=== PATIENT | female | born 1950 | race African-American/Black ===

== ENCOUNTER → 2017-09-22 | Outpatient (CLI) | payer MEDICARE, OTHER | END | disposition home or self-care (01) | LOC: KCIC DEXA 11:18 | DX: Z12.31 Encounter for screening mammogram for malignant neoplasm of breast (principal) | CPT/HCPCS: 77067 ==

== ENCOUNTER → 2017-09-29 | Outpatient (CLI) | payer MEDICARE, OTHER | END | disposition home or self-care (01) | LOC: KCIC US 13:07 | DX: N63.13 Unspecified lump in the right breast, lower outer quadrant (principal) | CPT/HCPCS: 76641 ==

== ENCOUNTER → 2017-11-12 | Outpatient (CLI) | payer MEDICARE, OTHER ==
[~2017-11-12] MED LIST: LIDOCAINE 1%/EPI 1:100,000 20 ML VIAL. INJ ONE; LIDOCAINE 2%/EPI 1:100,000 20 ML VIAL. IJ ONE
[2017-11-12 11:00] VITALS: BP 146/77
[2017-11-12 11:15] VITALS: BP 153/80
[2017-11-12 11:30] VITALS: BP 155/78
[2017-11-12 11:45] VITALS: BP 152/82
--- NOTE | 2017-11-15 15:07 | PATHOLOGY ---
[facility] Accession Number: [id number] . 01 Material submitted: . PART A: RT BREAST MASS 5:00 PART B: RT BREAST MASS 9:00 . 01 Clinical history: . Right breast mass 5oc Right breast mass 9oc . 02 Diagnosis: A. Breast tissue, right breast mass 5:00 needle biopsies: - Ductal carcinoma in situ, papillary/cribriform type, intermediate grade. - Proliferative fibrocystic changes with focal mild to moderate ductal epithelial hyperplasia. . B. Breast tissue, right breast mass 9:00 needle biopsies: - Intraductal papilloma. - Proliferative fibrocystic changes with the following components: - Florid ductal epithelial hyperplasia and intraductal papillomatosis. - Stromal fibrosis. - Duct ectasia. - Cystic change. - Apocrine metaplasia, focal. (JPM:sarah; 11/15/2017) QMS/11/15/2017 . 02 Comment: Sections of the right breast mass at 5:00 needle biopsies show ductal carcinoma in situ, intermediate grade, papillary/cribriform type. There is no definitive evidence of invasive carcinoma. There are also proliferative fibrocystic changes. Breast prognostic studies will be obtained, the results of which will be reported seperately. . Sections of the right breast mass at 9:00 needle biopsies show intraductal papilloma with foci of florid ductal epithelial hyperplasia, in addition to proliferative fibrocystic changes with foci of florid ductal epithelial hyperplasia and intraductal papillomatosis. There is no evidence of malignancy. . The case is also examined by Dr. Guillermo Small, who concurs with the diagnosis. (JPM:sarah; 11/15/2017) . 02 Electronically signed: . Jamaal Powell MD, Pathologist NPI- [id number] . 01 Gross description: . A. The specimen is received in formalin, labeled "Jazmine Eaton, right breast 5oc 7cfn" and consists of multiple needle cores of yellow fibroadipose tissue measuring between 0.2 cm and 2.0 cm in length and ranging from 0.1 cm to 0.4 cm in diameter. They are entirely submitted in A1-A3. The cold ischemic time is 5 minutes and the total formalin fixation time is greater than 6 hours but less than 72 hours. . B. The specimen is received in formalin, labeled "Jazmine Eaton, right breast 9oc, 6.5 cfn" and consists of multiple needle cores of yellow fibrofatty tissue measuring between 0.2 cm and 2.4 cm in length and ranging between 0.2 and 0.3 cm in diameter. They are entirely submitted in B1-B3. The cold ischemic time is 5 minutes and total formalin fixation time is greater than 6 hours but less than 72 hours. (SDY; 11/12/2017) SYU/SYU . 02 Pathologist provided ICD-10: D05.11, N60.11, N60.31, N60.41, N60.81 . 02 CPT . 436814, [id number] Performed at: 01 [facility] [address], [place], [place] [id number] MD Montrell Valles MD Phone: [phone] Performed at: 02 [facility] [address] [place], [place] [id number] MD Jamaal Powell MD Phone: [phone]
--- NOTE | 2017-11-16 09:29 | RAD ---
Ultrasound-guided right breast biopsy #1, 11/12/2017: History: Suspicious breast nodules We first targeted the nodule in the medial aspect of the right breast at approximately 5:00 location. Under local anesthesia, aseptic conditions and sonographic guidance the Suros ATEC biopsy instrument was passed into this nodule via a medial approach. Multiple 12-gauge vacuum-assisted core samples were obtained. A biopsy marker was deposited at the biopsy site. The biopsy instrument was then removed and hemostasis obtained. Ultrasound-guided right breast biopsy #2, 11/12/2017: We then targeted the nodule in the lateral aspect of the right breast approximately 9:00 location. Under local anesthesia, aseptic conditions and sonographic guidance the Suros ATEC biopsy instrument was passed into this nodule via a lateral approach. Multiple 12-gauge vacuum-assisted core samples were obtained. A biopsy marker was then deposited at the biopsy site. The biopsy instrument was then removed and hemostasis obtained. 2 view postprocedural digital mammograms were then obtained to document the positions of the biopsy markers. Small postbiopsy hematomas are evident at both biopsy sites. The patient tolerated the procedure well and left the department in good condition. Note: The subsequent pathology report for the 5:00 right breast lesion indicated the presence of ductal carcinoma in situ. The subsequent pathology report for the 9:00 right breast lesion indicated the presence of an intraductal papilloma with epithelial hyperplasia and intraductal papillomatosis. Note: Receipt of this pathology report was confirmed with Dr. Degroot's nurse at 9:25 AM on 11/16/2017.
== END | disposition home or self-care (01) ==
LOC: US 08:30
PROVIDERS: ATTEND Surgery
DX: D05.11 Intraductal carcinoma in situ of right breast (principal); D24.1 Benign neoplasm of right breast; N60.31 Fibrosclerosis of right breast; N60.41 Mammary duct ectasia of right breast; N60.81 Other benign mammary dysplasias of right breast; Z88.5 Allergy status to narcotic agent
CPT/HCPCS: 19083; 19084; 77065; 88305; 88361; C1713; 19081; 76942

== ENCOUNTER 2018-01-11 06:53 | Observation (INO) | payer MEDICARE, OTHER ==
[~2018-01-11] VITALS: Ht 157.5 cm; Wt 110.7 kg
[2018-01-11] VITALS (10 sets, daily range): BP systolic 128–175; BP diastolic 52–77
[~2018-01-11 06:53] MED LIST changes: +ALLO100T PO; +BREO ELLIPTA 11 EACH IH; +CALC200T3 PO; +CALC667T PO; +CARV6.252 PO; +CINA30TA2 PO; +DICL100G18 TP; +DIPH50CA PO; +DOCU100C28 PO; +FERR325T14 PO; +FLUT9.9S NS; +HYDR-3135 PO; +INSU500I SQ; +LEVO150T5 PO; -LIDOCAINE 1%/EPI 1:100,000 20 ML VIAL. INJ ONE; -LIDOCAINE 2%/EPI 1:100,000 20 ML VIAL. IJ ONE; +VENTOLIN HFA18 GM INH
[2018-01-11] MEDS ORDERED: PROCHLORPERAZINE 10 MG/2 ML VIAL. IV PRN (07:00)
[2018-01-11] MEDS ORDERED: fentaNYL PF VIAL 100 MCG/2 ML VIAL IV PRN ×2 (07:00)
[2018-01-11] MEDS ORDERED: IV NORMAL SALINE 1000ML BAG 1,000 ML IV SCH (07:00)
[2018-01-11] MEDS ORDERED: HYDROmorphone 2 MG/ML VIAL IV PRN (07:00)
[2018-01-11] MEDS ORDERED: MORPHINE SULFATE 2 MG/ML VIAL. IV PRN ×3 (07:00→16:30)
[2018-01-11] MEDS ORDERED: ONDANSETRON PF 4 MG/2 ML VIAL. IV PRN ×3 (07:00→16:30)
[2018-01-11] MEDS ORDERED: LIDOCAINE 1% PF 2 ML VIAL. ID PRN (07:00)
[2018-01-11] MEDS ORDERED: IV RINGERS,LACTATED 1000ML 1,000 ML IV SCH (07:00)
[2018-01-11] MEDS ORDERED: LIDOCAINE WITH 8.4% SOD BICARB 3 ML DISP.SYRIN. INJ ONE (07:45)
[2018-01-11] MEDS ORDERED: LIDOCAINE WITH 8.4% SOD BICARB 3 ML DISP.SYRIN. ONE (07:48)
[2018-01-11] MEDS ORDERED: ONDANSETRON PF 4 MG/2 ML VIAL. ONE (08:27)
[2018-01-11] MEDS ORDERED: fentaNYL PF VIAL 100 MCG/2 ML VIAL ONE (08:27)
[2018-01-11] MEDS ORDERED: PROPOFOL 20 ML IV ONE (08:27)
[2018-01-11] MEDS ORDERED: DEXAMETHASONE SOD PHOS 20 MG/5 ML VIAL. ONE (08:27)
[2018-01-11] MEDS ORDERED: SUCCINYLCHOLINE 200 MG/10 ML VIAL. ONE (08:28)
[2018-01-11] MEDS ORDERED: ePHEDrine PF IN SALINE 50 MG/5 ML DISP.SYRIN IV ONE (08:29)
[2018-01-11] MEDS ORDERED: INSULIN LISPRO 100 UNIT/ML 3ML VIAL. SQ ONE ×2 (08:30→13:15)
[2018-01-11] MEDS ORDERED: BUPIVAC MPF-EPI 0.5%-1:200000 30 ML VIAL. ONE (09:11)
[2018-01-11] MEDS ORDERED: ISOSULFAN BLUE 50 MG/5 ML VIAL. SQ ONE (09:11)
--- NOTE | 2018-01-11 09:46 | RAD ---
Right breast needle localization #1, 01/11/2018: History: Breast cancer, papilloma We first targeted the biopsy marker in the medial aspect of the right breast. Under local anesthesia, aseptic conditions and mammographic guidance a Kopan's needle with modified retention wire was placed via a medial approach. The final image shows that the biopsy marker and an associated lobulated nodule lies directly posterior to the thickened portion of the retention wire approximately 8 cm deep the skin surface. Right breast needle localization #2, 01/11/2018: We then targeted the biopsy marker in the lateral aspect of the breast. Under local anesthesia, aseptic conditions and mammographic guidance a modified Kopans retention was placed from a lateral approach. The final images show that the targeted biopsy marker lies directly adjacent to the retention wire approximately 1.5 cm proximal to the proximal margin of the thickened portion of the wire, approximately 1.7 cm deep to the skin surface. The patient tolerated the procedures well and was sent to surgery in good condition.
--- NOTE | 2018-01-11 11:22 | RAD ---
Right specimen mammogram #1, 01/11/2018: History: Breast cancer A single digital mammogram of the specimen from the medial aspect of the right breast was obtained. The biopsy marker lies within the specimen adjacent to the retention wire at the 4F level in the specimen container. There is an adjacent breast nodule centered at the E5-6 level in the specimen container.
--- NOTE | 2018-01-11 12:01 | RAD ---
Right digital specimen mammogram #2, 01/11/2018: A single digital mammogram of a surgical specimen from the lateral aspect of the right breast was obtained. The targeted biopsy marker is present within the specimen adjacent to the retention wire at the G6 level in the specimen container.
--- NOTE | 2018-01-11 12:08 | PDOC4 ---
Operative Note Operative Note Operative Note: Preoperative Diagnosis: Right breast ductal carcinoma in situ, intraductal papillomatosis Postoperative Diagnosis: Same Procedure: Right segmental mastectomy with needle localization, right breast biopsy with needle localization Surgeon: Zane Pull Over Machine Operator: Akash VASQUEZ Anesthesia: Gen. EBL: 25 mL Specimen: Right segmental mastectomy at 5 o'clock position, additional margins lateral, deep, superior, inferior; right breast biopsy at 9 o'clock position Drains: none Complications: none Indication: The patient is a 67-year-old female who recently underwent needle biopsies of two mammographic lesions of the right breast. Biopsies revealed ductal carcinoma in situ located at the 5 o'clock position with an intraductal papilloma and papillomatosis at the 9 o'clock position. I discussed with her surgical treatment and recommend a segmental mastectomy in the area of in situ carcinoma and an excisional biopsy of the area of couple pneumatosis. I reviewed the risks of surgery which include bleeding, infection, pain, scar tissue, anesthetic risk, potential need for additional surgery or procedure particularly depending on pathology results. She understands and would like to proceed. Description: The patient was taken initially to radiology where she underwent wire localization of both lesions. She was then taken to the operating room. Gen. anesthesia was performed. The right breast was wrapped with ChloraPrep and draped in a standard surgical manner. We directed our attention initially to the medial lesion representing the area of ductal carcinoma in situ. An incision was made starting at the border of the areola medially and extending adjacent to the wire. Cautery dissection was carried down the breast parenchyma. The wire was directed toward the lesion which was fairly deep in the midportion of the right breast. With primarily cautery dissection a generous lumpectomy was performed freeing up the involved area of breast tissue from the surrounding tissue. The lumpectomy included the entire wire and was sent to pathology. A short silk suture marked the superficial margin and a long silk suture marked the lateral margin. Specimen radiographs confirmed the presence of the targeting clip. We elected to excise additional margins located in the lateral, deep, superior, inferior aspects of the biopsy cavity. These were all labeled appropriately and sent to pathology. We then directed our attention to the laterally placed wire representing the area of the intraductal papilloma. With a scalpel an incision was made adjacent to the wire. Cautery dissection was carried down through the breast parenchyma. The lesion was fairly superficial in this location and a generous excisional biopsy was performed with cautery. The biopsy specimen was sent to pathology and radiographs confirmed the presence of the clip. Hemostasis was achieved with cautery in both excisional cavities. The subcutaneous tissue of the lumpectomy location was closed with 3-0 Vicryl. The skin at both sites was closed with 4-0 Monocryl. Both incisions were infiltrated with half percent Marcaine with epinephrine. Sterile OpSite dressings were then applied. The patient tolerated the procedure well and was sent to the recovery room in stable condition. At the end of the case all counts were correct. ENVA MCMANUS MD Jan 11, 2018 12:08
[2018-01-11] MEDS ORDERED: HYDROcodone/APAP 5/325MG 1 TAB TABLET PO PRN ×2 (12:15→16:30)
[2018-01-11] MEDS ORDERED: 0.9 % SODIUM CHLORIDE 10 ML DISP.SYRIN. IV PRN (12:15)
[2018-01-11] MEDS ORDERED: DICLOFENAC SODIUM 1% TOPICAL GEL 100GM TUBE. TP PRN (12:15)
[2018-01-11] MEDS ORDERED: NON FORMULARY ITEM (Fluticasone/Vilanterol (Breo Ellipta 100-25 Mcg Inh) 1 PUFF) IH PRN (12:15)
[2018-01-11] MEDS ORDERED: diphenhydrAMINE HCL 25 MG CAPSULE PO PRN (12:30)
[2018-01-11] MEDS ORDERED: NON FORMULARY ITEM (Albuterol Sulfate (Ventolin Hfa Inhaler) 2 PUFF) INH SCH (13:00)
[2018-01-11] MEDS: CINACALCET HCL 30 MG TABLET PO SCH (13:00)
[2018-01-11] MEDS: IV 1/2 NORMAL SALINE 1,000 ML IV SCH (14:26)
[2018-01-11] MEDS: ALBUTEROL SULFATE 2.5 MG/3 ML NEBU. NEB SCH ×2 (15:05→19:38)
[2018-01-11] MEDS: CARVEDILOL 6.25 MG TABLET. PO SCH (15:56)
[2018-01-11] MEDS: CALCIUM CARBONATE 500 MG TAB.CHEW PO SCH (15:56)
[2018-01-11] MEDS: FERROUS SULFATE 325 MG TABLET. PO SCH (15:56)
[2018-01-11] MEDS ORDERED: ACETAMINOPHEN 325 MG TABLET. PO PRN (16:30)
[2018-01-11] MEDS ORDERED: INSULIN LISPRO 300 UNITS/3 ML INSULN.PEN. SQ SCH (16:30)
[2018-01-11] MEDS ORDERED: traMADol 50 MG TABLET PO PRN (16:30)
[2018-01-11] MEDS ORDERED: DEXTROSE 50% 25 GM / 50ML DISP.SYRIN. IV PRN (16:30)
[2018-01-11] MEDS ORDERED: DOCUSATE SODIUM 100 MG CAPSULE. PO PRN (16:30)
[2018-01-11] MEDS ORDERED: LABETALOL 20 MG/4 ML DISP.SYRIN. IVP PRN (16:30)
--- NOTE | 2018-01-11 16:36 | PDOC2 ---
CONSULT Date of Consult Date of Consult DATE: 01/11/18 TIME: 16:29 Reason for Consult Reason for Consult: post op Referring Physician Referring Physician: dr. Degroot Identification/Chief Complaint Chief Complaint rt BCa post op today Source Source: Chart review, Patient History of Present Illness Reason for Visit: 67 yo F, with h/o dm2 on insulin , CAD s/p CABG, ESRD on HD mwf, did elective rt segmental mastectomy by dr. Degroot today. pt did rt breast bx 11/2017, path showed Right breast ductal carcinoma in situ. pt feels ok post op, 2 rt breast nodules was removed, with dressing on, + pain and tenderness. Otherwise feels ok, no fever, chills, no N/V, CHEST pain. has chronic sob with chf and copd. Past Medical History Past Medical History htn, dm2, esrd on HD, cabg Past Surgical History Past Surgical History thyroidectomy Past Surgical History: CABG Family History Family History: Hypertension Social History No ALCOHOL: none Lives: with Family Domestic Violence: Neg Current Medications Current Medications Current Medications Ondansetron HCl (Zofran) 4 mg PRN Q6HRS PRN IV NAUSEA/VOMITING; Start 01/11/18 at 07:00; Stop 01/11/18 at 18:00 Fentanyl Citrate (Fentanyl 2ml Vial) 25 mcg PRN Q5MIN PRN IV MILD PAIN; Start 01/11/18 at 07:00; Stop 01/12/18 at 06:59; Status UNV Fentanyl Citrate (Fentanyl 2ml Vial) 50 mcg PRN Q5MIN PRN IV MODERATE TO SEVERE PAIN; Start 01/11/18 at 07:00; Stop 01/12/18 at 06:59; Status UNV Morphine Sulfate (Morphine Sulfate) 1 mg PRN Q10MIN PRN IV SEVERE PAIN Last administered on 01/11/18at 12:19; Start 01/11/18 at 07:00; Stop 01/11/18 at 18:00 Ringer's Solution 1,000 ml @ 30 mls/hr Q24H IV ; Start 01/11/18 at 07:00; Stop 01/11/18 at 18:59 Lidocaine HCl (Xylocaine-Mpf 1% 2ml Vial) 2 ml PRN 1X PRN ID IV START; Start 01/11/18 at 07:00; Stop 01/11/18 at 18:00 Hydromorphone HCl (Dilaudid) 0.5 mg PRN Q10MIN PRN IV SEV PAIN, Second choice; Start 01/11/18 at 07:00; Stop 01/11/18 at 18:00 Prochlorperazine Edisylate (Compazine) 5 mg PACU PRN PRN IV NAUSEA, MRX1; Start 01/11/18 at 07:00; Stop 01/11/18 at 18:00 Cefazolin Sodium/ Dextrose 50 ml @ 100 mls/hr 1X PREOP PRN IV PRIOR TO PROCEDURE; Start 01/11/18 at 06:00; Stop 01/11/18 at 18:00 Sodium Chloride 1,000 ml @ 75 mls/hr [id number] IV Last administered on at 07:46; Start 01/11/18 at 07:00 Lidocaine/Sodium Bicarbonate (Buffered Lidocaine 1%) 6 ml 1X ONCE INJ Last administered on 01/11/18at 08:50; Start 01/11/18 at 07:45; Stop 01/11/18 at 07:48 ; Status DC Lidocaine/Sodium Bicarbonate (Buffered Lidocaine 1%) 3 ml STK-MED ONCE .ROUTE ; Start 01/11/18 at 07:48; Stop 01/11/18 at 07:49; Status DC Insulin Human Lispro (HumaLOG VIAL) 20 unit 1X ONCE SQ Last administered on at 08:21; Start 01/11/18 at 08:30; Stop 01/11/18 at 08:31; Status DC Propofol 20 ml @ As Directed STK-MED ONCE IV ; Start 01/11/18 at 08:27; Stop at 08:28; Status DC Dexamethasone Sodium Phosphate (Decadron) 20 mg STK-MED ONCE .ROUTE ; Start 01/11/18 at 08:27; Stop 01/11/18 at 08:28; Status DC Ondansetron HCl (Zofran) 4 mg STK-MED ONCE .ROUTE ; Start 01/11/18 at 08:27; Stop 01/11/18 at 08:28; Status DC Fentanyl Citrate (Fentanyl 2ml Vial) 100 mcg STK-MED ONCE .ROUTE ; Start at 08:27; Stop 01/11/18 at 08:28; Status DC Succinylcholine Chloride (Anectine) 200 mg STK-MED ONCE .ROUTE ; Start 01/11/18 at 08:28; Stop 01/11/18 at 08:29; Status DC Ephedrine Sulfate (ePHEDrine PF IN SALINE SYRINGE) 50 mg STK-MED ONCE IV ; Start 01/11/18 at 08:29; Stop 01/11/18 at 08:30; Status DC Bupivacaine HCl/ Epinephrine Bitart (Sensorcain-Mpf Epi 0.5%-1:[id number]) 30 ml STK -MED ONCE .ROUTE Last administered on 01/11/18at 11:35; Start 01/11/18 at 09:11 ; Stop 01/11/18 at 09:12; Status DC Isosulfan Blue (Isosulfan Blue) 50 mg STK-MED ONCE SQ ; Start 01/11/18 at 09:11 ; Stop 01/11/18 at 09:12; Status DC Sodium Chloride (Normal Saline Flush) 3 ml QSHIFT PRN IV AFTER MEDS AND BLOOD DRAWS; Start 01/11/18 at 12:15 Sodium Chloride 1,000 ml @ 50 mls/hr Q20H IV Last administered on 01/11/18at 14 :26; Start 01/11/18 at 12:11 Acetaminophen/ Hydrocodone Bitart (Lortab 5/325) 1 tab PRN Q4HRS PRN PO MILD PAIN; Start 01/11/18 at 12:15 Acetaminophen/ Hydrocodone Bitart (Lortab 5/325) 2 tab PRN Q4HRS PRN PO MODERATE PAIN, SEVERE PAIN; Start 01/11/18 at 12:15 Morphine Sulfate (Morphine Sulfate) 1 mg PRN Q1HR PRN IV PAIN Last administered on 01/11/18at 14:24; Start 01/11/18 at 12:15 Ondansetron HCl (Zofran) 4 mg PRN Q6HRS PRN IV NAUESA, 1ST CHOICE; Start at 12:15 Allopurinol (Zyloprim) 100 mg BID PO ; Start 01/11/18 at 21:00 Allopurinol (Zyloprim) 100 mg DAILY PO ; Start 01/12/18 at 09:00; Status UNV Calcium Carbonate/ Glycine (Tums) 500 mg TIDAC PO Last administered on at 15:56; Start 01/11/18 at 16:30 Carvedilol (Coreg) 6.25 mg BIDWMEALS PO Last administered on 01/11/18at 15:56; Start 01/11/18 at 17:00 Cinacalcet (Sensipar) 30 mg DAILY PO ; Start 01/11/18 at 13:00 Diclofenac Sodium (Voltaren) 1 charan PRN QID PRN TP PAIN; Start 01/11/18 at 12:15 Docusate Sodium (Colace) 100 mg BID PO ; Start 01/11/18 at 21:00 Ferrous Sulfate (Feosol) 325 mg TIDWMEALS PO Last administered on 01/11/18at 15: 56; Start 01/11/18 at 17:00 Non-Formulary Medication (Albuterol Sulfate (Ventolin Hfa Inhaler)) 2 puff QID INH ; Start 01/11/18 at 13:00; Status UNV Calcium Acetate (Phoslo) 667 mg TIDWMEALS PO ; Start 01/11/18 at 17:00; Stop at 17:00; Status DC Diphenhydramine HCl (Benadryl) 25 mg PRN DAILY PRN PO ITCHING; Start 01/11/18 at 12:30 Fluticasone Propionate (Flonase) 2 spray PRN DAILY PRN NS ALLERGIES; Start 01/12/18 at 09:00 Non-Formulary Medication (Fluticasone/ Vilanterol (Breo Ellipta 100-25 Mcg Inh) ) 1 puff DAILY PRN IH daily; Start 01/11/18 at 12:15; Status UNV Insulin Human Lispro (HumaLOG) 15 units BIDACLD SQ ; Start 01/11/18 at 16:30 Levothyroxine Sodium (Synthroid) 150 mcg DAILY06 PO ; Start 01/12/18 at 06:00 Albuterol Sulfate (Ventolin Neb Soln) 2.5 mg RTQID NEB Last administered on 01/11/18at 15:05; Start 01/11/18 at 16:00 Budesonide (Pulmicort) 0.5 mg RTBID NEB ; Start 01/11/18 at 20:00 Insulin Human Lispro (HumaLOG VIAL) 6 unit 1X ONCE SQ Last administered on 11/ 6/18at 13:10; Start 01/11/18 at 13:15; Stop 01/11/18 at 13:17; Status DC Active Scripts Active Reported Tums (Calcium Carbonate) 200 Mg Tab.chew 2 Tab PO TIDAC Sensipar (Cinacalcet Hcl) 30 Mg Tablet 30 Mg PO DAILY Breo Ellipta 100-25 Mcg Inh (Fluticasone/Vilanterol) 1 Each Aer.pow.ba 1 Puff IH DAILY PRN Ventolin Hfa Inhaler (Albuterol Sulfate) 18 Gm Hfa.aer.ad 2 Puff INH QID Calcium Acetate 667 Mg Tablet 667 Mg PO TIDWMEALS Flonase Allergy Relief (Fluticasone Propionate) 9.9 Ml [place].susp 2 Sprays NS DAILY PRN Ferrous Sulfate 325 Mg Tablet 325 Mg PO TID Docusate Sodium 100 Mg Capsule 100 Mg PO BID Diphenhydramine Hcl 50 Mg Capsule 25 Mg PO PRN DAILY Humulin R U-500 Kwikpen (Insulin Regular, Human) 500 Unit/1 Ml Insuln.pen 15 Unit SQ BIDACLD Voltaren (Diclofenac Sodium) 100 Gm Gel..gram. 100 Gm TP PRN QID PRN [place] 10-325 Tablet (Acetaminophen/Hydrocodone Bitart) 1 Each Tablet 1 Tab PO PRN Q6HRS PRN Allopurinol 100 Mg Tablet 100 Mg PO DAILY Levothyroxine Sodium 150 Mcg Tablet 150 Mcg PO DAILYAC Carvedilol 6.25 Mg Tablet 6.25 Mg PO BIDWMEALS Allopurinol 100 Mg Tablet 100 Mg PO BID Allergies Allergies: Coded Allergies: meperidine (Verified Allergy, Intermediate, 01/11/18) Physical Exam General: Alert, Oriented X3, Cooperative HEENT: Atraumatic, PERRLA Lungs: Clear to auscultation Heart: Regular rate, Normal S1, Normal S2 Abdomen: Normal bowel sounds, Soft Extremities: No clubbing, No cyanosis Skin: No rashes, Other (rt breast lower outer and lower inner quadrant has post op sx wound with dressing on. + tenderness. ) Neuro: Normal speech Psych/Mental Status: Mental status NL MUSCULOSKELETAL: No joint tenderness, No swelling Vitals VITALS Vital Signs Date Time Temp Pulse Resp B/P (MAP) Pulse Ox O2 Delivery O2 Flow Rate FiO2 01/11/18 15:56 88 150/55 01/11/18 15:56 Room Air 01/11/18 15:08 95 1.2 01/11/18 14:24 16 01/11/18 14:05 97.6 97.6 Labs Labs Laboratory Tests Test 01/11/18 08:13 01/11/18 09:20 01/11/18 12:06 01/11/18 12:52 Glucose (Fingerstick) 304 mg/dL (70-99) 253 mg/dL (70-99) 207 mg/dL (70-99) 228 mg/dL (70-99) Test 01/11/18 14:10 Glucose (Fingerstick) 204 mg/dL (70-99) Laboratory Tests Test 01/11/18 08:13 01/11/18 09:20 01/11/18 12:06 01/11/18 12:52 Glucose (Fingerstick) 304 mg/dL (70-99) 253 mg/dL (70-99) 207 mg/dL (70-99) 228 mg/dL (70-99) Test 01/11/18 14:10 Glucose (Fingerstick) 204 mg/dL (70-99) Assessment/Plan Assessment/Plan Right breast ductal carcinoma in situ s/p Right segmental mastectomy with needle localization, right breast biopsy with needle localization 01/11 ESRD on HD mwf h/o CAD s/p CABG DM2 ON insulin HTN ppm/ICD morbid obesity hypothyroidism s/p thyroidectomy copd stable plan; fu with sx, pain control as needed renal consult for HD tmr. pt's son want HD before dc home tmr add lantus 15u qhs, aspart 5u tid, ssi. dc humalog 15u bid labs tmr talked to Nurse cont other home meds thanks for asking TH for consult PIO FOSTER MD Jan 11, 2018 16:36
[2018-01-11] MEDS ORDERED: CALCIUM ACETATE 667 MG CAPSULE PO SCH (17:00)
[2018-01-11] MEDS: INSULIN LISPRO 300 UNITS/3 ML INSULN.PEN. SQ SCH ×2 (17:01→17:02)
[2018-01-11] MEDS: HYDROcodone/APAP 5/325MG 1 TAB TABLET PO PRN ×2 (19:27→23:33)
[2018-01-11] MEDS: BUDESONIDE 0.5 MG/2 ML NEBU. NEB SCH (19:39)
[2018-01-11] MEDS ORDERED: INSULIN GLARGINE 300 UNITS/3 ML INSULN.PEN. SQ SCH (21:00)
[2018-01-11] MEDS ORDERED: INSULIN LISPRO 300 UNITS/3 ML INSULN.PEN. SQ ONE (21:15)
[2018-01-11] MEDS: ALLOPURINOL 100 MG TABLET. PO SCH (22:04)
[2018-01-11] MEDS: DOCUSATE SODIUM 100 MG CAPSULE. PO SCH (22:04)
[2018-01-12 03:00] VITALS: BP 106/54
[2018-01-12 04:37] LABS: BASO % 0 % (0-3); EOS % 0 % (0-3); HEMOGLOBIN 10.6 g/dL (12.0-15.5); LYMPH # 1.2 x10^3/uL (1.0-4.8); LYMPH % 9 % (24-48); MEAN CORPUSCULAR HEMOGLOBIN 31 pg (25-35); MEAN CORPUSCULAR HGB CONC 31 g/dL (31-37); MEAN CORPUSCULAR VOLUME 101 fL (79-100); MONO % 7 % (0-9); NEUT # 11.8 x10^3uL (1.8-7.7); NEUT % 84 % (31-73); PLATELET COUNT 232 x10^3/uL (140-400); RED BLOOD COUNT 3.36 x10^6/uL (3.50-5.40)
[2018-01-12 04:50] LABS: CALCIUM 7.2 mg/dL (8.5-10.1); CREATININE 7.9 mg/dL (0.6-1.0); GFR 6.1; POTASSIUM 5.1 mmol/L (3.5-5.1)
[2018-01-12] MEDS ORDERED: LEVOTHYROXINE 150 MCG TABLET PO SCH (06:00)
[2018-01-12] MEDS: CALCIUM CARBONATE 500 MG TAB.CHEW PO SCH ×2 (06:36→13:14)
[2018-01-12] MEDS: HYDROcodone/APAP 5/325MG 1 TAB TABLET PO PRN (06:37)
[2018-01-12 07:00] VITALS: BP 110/46
[2018-01-12] MEDS: ALBUTEROL SULFATE 2.5 MG/3 ML NEBU. NEB SCH ×2 (07:05→12:00)
[2018-01-12] MEDS: BUDESONIDE 0.5 MG/2 ML NEBU. NEB SCH (07:05)
[2018-01-12] MEDS: ALLOPURINOL 100 MG TABLET. PO SCH (07:59)
[2018-01-12] MEDS: CINACALCET HCL 30 MG TABLET PO SCH (07:59)
[2018-01-12] MEDS: FERROUS SULFATE 325 MG TABLET. PO SCH ×2 (07:59→13:13)
[2018-01-12] MEDS: DOCUSATE SODIUM 100 MG CAPSULE. PO SCH (07:59)
[2018-01-12] MEDS: CARVEDILOL 6.25 MG TABLET. PO SCH (08:00)
[2018-01-12] MEDS: INSULIN LISPRO 300 UNITS/3 ML INSULN.PEN. SQ SCH ×3 (08:02→13:17)
[2018-01-12] MEDS: IV 1/2 NORMAL SALINE 1,000 ML IV SCH (08:04)
[2018-01-12] MEDS ORDERED: IV NORMAL SALINE 1000ML BAG 1,000 ML IV PRN ×2 (08:08)
[2018-01-12] MEDS ORDERED: DIALYSIS PATIENT. MC PRN ×2 (08:15)
[2018-01-12] MEDS ORDERED: LIDOCAINE 2% PF 2ML VIAL. INJ ONE (08:30)
[2018-01-12] MEDS ORDERED: ALLOPURINOL 100 MG TABLET. PO SCH (09:00)
[2018-01-12] MEDS ORDERED: FLUTICASONE 50MCG/NASAL SPRAY 16GM BOTTLE. NS PRN (09:00)
--- NOTE | 2018-01-12 10:08 | PDOC ---
PROGRESS NOTES Subjective Subjective doing well, in dialysis, no complaints Objective Objective Vital Signs Date Time Temp Pulse Resp B/P (MAP) Pulse Ox O2 Delivery O2 Flow Rate FiO2 01/12/18 08:00 81 110/46 01/12/18 08:00 16 Nasal Cannula 2.0 01/12/18 07:05 97 01/12/18 07:00 97.9 97.9 Intake and Output 01/12/18 07:00 Intake Total 950 ml Balance 950 ml Intake Oral 950 ml # Voids 3 Physical Exam Physical Exam R breast dressings clean and dry Assessment Assessment breast cancer Plan Plan of Care Discharge Comment Review of Relevant I have reviewed the following items filippo (where applicable) has been applied. Labs Laboratory Tests Test 01/11/18 08:13 01/11/18 09:20 01/11/18 12:06 01/11/18 12:52 Glucose (Fingerstick) 304 mg/dL (70-99) 253 mg/dL (70-99) 207 mg/dL (70-99) 228 mg/dL (70-99) Test 01/11/18 14:10 01/11/18 16:38 01/11/18 20:38 01/12/18 03:30 Glucose (Fingerstick) 204 mg/dL (70-99) 290 mg/dL (70-99) 409 mg/dL (70-99) White Blood Count 14.0 x10^3/uL (4.0-11.0) Red Blood Count 3.36 x10^6/uL (3.50-5.40) Hemoglobin 10.6 g/dL (12.0-15.5) Hematocrit 34.0 % (36.0-47.0) Mean Corpuscular Volume 101 fL (79-100) Mean Corpuscular Hemoglobin 31 pg (25-35) Mean Corpuscular Hemoglobin Concent 31 g/dL (31-37) Red Cell Distribution Width 15.0 % (11.5-14.5) Platelet Count 232 x10^3/uL (140-400) Neutrophils (%) (Auto) 84 % (31-73) Lymphocytes (%) (Auto) 9 % (24-48) Monocytes (%) (Auto) 7 % (0-9) Eosinophils (%) (Auto) 0 % (0-3) Basophils (%) (Auto) 0 % (0-3) Neutrophils # (Auto) 11.8 x10^3uL (1.8-7.7) Lymphocytes # (Auto) 1.2 x10^3/uL (1.0-4.8) Monocytes # (Auto) 1.0 x10^3/uL (0.0-1.1) Eosinophils # (Auto) 0.0 x10^3/uL (0.0-0.7) Basophils # (Auto) 0.0 x10^3/uL (0.0-0.2) Sodium Level 134 mmol/L (136-145) Potassium Level 5.1 mmol/L (3.5-5.1) Chloride Level 97 mmol/L (98-107) Carbon Dioxide Level 26 mmol/L (21-32) Anion Gap 11 (6-14) Blood Urea Nitrogen 53 mg/dL (7-20) Creatinine 7.9 mg/dL (0.6-1.0) Estimated GFR (Cockcroft-Gault) 6.1 Glucose Level 404 mg/dL (70-99) Calcium Level 7.2 mg/dL (8.5-10.1) Test 01/12/18 07:37 Glucose (Fingerstick) 320 mg/dL (70-99) Laboratory Tests Test 01/11/18 12:06 01/11/18 12:52 01/11/18 14:10 01/11/18 16:38 Glucose (Fingerstick) 207 mg/dL (70-99) 228 mg/dL (70-99) 204 mg/dL (70-99) 290 mg/dL (70-99) Test 01/11/18 20:38 01/12/18 03:30 01/12/18 07:37 Glucose (Fingerstick) 409 mg/dL (70-99) 320 mg/dL (70-99) White Blood Count 14.0 x10^3/uL (4.0-11.0) Red Blood Count 3.36 x10^6/uL (3.50-5.40) Hemoglobin 10.6 g/dL (12.0-15.5) Hematocrit 34.0 % (36.0-47.0) Mean Corpuscular Volume 101 fL (79-100) Mean Corpuscular Hemoglobin 31 pg (25-35) Mean Corpuscular Hemoglobin Concent 31 g/dL (31-37) Red Cell Distribution Width 15.0 % (11.5-14.5) Platelet Count 232 x10^3/uL (140-400) Neutrophils (%) (Auto) 84 % (31-73) Lymphocytes (%) (Auto) 9 % (24-48) Monocytes (%) (Auto) 7 % (0-9) Eosinophils (%) (Auto) 0 % (0-3) Basophils (%) (Auto) 0 % (0-3) Neutrophils # (Auto) 11.8 x10^3uL (1.8-7.7) Lymphocytes # (Auto) 1.2 x10^3/uL (1.0-4.8) Monocytes # (Auto) 1.0 x10^3/uL (0.0-1.1) Eosinophils # (Auto) 0.0 x10^3/uL (0.0-0.7) Basophils # (Auto) 0.0 x10^3/uL (0.0-0.2) Sodium Level 134 mmol/L (136-145) Potassium Level 5.1 mmol/L (3.5-5.1) Chloride Level 97 mmol/L (98-107) Carbon Dioxide Level 26 mmol/L (21-32) Anion Gap 11 (6-14) Blood Urea Nitrogen 53 mg/dL (7-20) Creatinine 7.9 mg/dL (0.6-1.0) Estimated GFR (Cockcroft-Gault) 6.1 Glucose Level 404 mg/dL (70-99) Calcium Level 7.2 mg/dL (8.5-10.1) Medications Current Medications Ondansetron HCl (Zofran) 4 mg PRN Q6HRS PRN IV NAUSEA/VOMITING; Start 01/11/18 at 07:00; Stop 01/11/18 at 18:00; Status DC Fentanyl Citrate (Fentanyl 2ml Vial) 25 mcg PRN Q5MIN PRN IV MILD PAIN; Start 01/11/18 at 07:00; Stop 01/12/18 at 06:59; Status UNV Fentanyl Citrate (Fentanyl 2ml Vial) 50 mcg PRN Q5MIN PRN IV MODERATE TO SEVERE PAIN; Start 01/11/18 at 07:00; Stop 01/12/18 at 06:59; Status UNV Morphine Sulfate (Morphine Sulfate) 1 mg PRN Q10MIN PRN IV SEVERE PAIN Last administered on 01/11/18at 12:19; Start 01/11/18 at 07:00; Stop 01/11/18 at 18:00 ; Status DC Ringer's Solution 1,000 ml @ 30 mls/hr Q24H IV ; Start 01/11/18 at 07:00; Stop 01/11/18 at 18:59; Status DC Lidocaine HCl (Xylocaine-Mpf 1% 2ml Vial) 2 ml PRN 1X PRN ID IV START; Start 01/11/18 at 07:00; Stop 01/11/18 at 18:00; Status DC Hydromorphone HCl (Dilaudid) 0.5 mg PRN Q10MIN PRN IV SEV PAIN, Second choice; Start 01/11/18 at 07:00; Stop 01/11/18 at 18:00; Status DC Prochlorperazine Edisylate (Compazine) 5 mg PACU PRN PRN IV NAUSEA, MRX1; Start 01/11/18 at 07:00; Stop 01/11/18 at 18:00; Status DC Cefazolin Sodium/ Dextrose 50 ml @ 100 mls/hr 1X PREOP PRN IV PRIOR TO PROCEDURE; Start 01/11/18 at 06:00; Stop 01/11/18 at 18:00; Status DC Sodium Chloride 1,000 ml @ 75 mls/hr [id number] IV Last administered on at 07:46; Start 01/11/18 at 07:00; Stop 01/11/18 at 16:29; Status DC Lidocaine/Sodium Bicarbonate (Buffered Lidocaine 1%) 6 ml 1X ONCE INJ Last administered on 01/11/18at 08:50; Start 01/11/18 at 07:45; Stop 01/11/18 at 07:48 ; Status DC Lidocaine/Sodium Bicarbonate (Buffered Lidocaine 1%) 3 ml STK-MED ONCE .ROUTE ; Start 01/11/18 at 07:48; Stop 01/11/18 at 07:49; Status DC Insulin Human Lispro (HumaLOG VIAL) 20 unit 1X ONCE SQ Last administered on at 08:21; Start 01/11/18 at 08:30; Stop 01/11/18 at 08:31; Status DC Propofol 20 ml @ As Directed STK-MED ONCE IV ; Start 01/11/18 at 08:27; Stop at 08:28; Status DC Dexamethasone Sodium Phosphate (Decadron) 20 mg STK-MED ONCE .ROUTE ; Start 01/11/18 at 08:27; Stop 01/11/18 at 08:28; Status DC Ondansetron HCl (Zofran) 4 mg STK-MED ONCE .ROUTE ; Start 01/11/18 at 08:27; Stop 01/11/18 at 08:28; Status DC Fentanyl Citrate (Fentanyl 2ml Vial) 100 mcg STK-MED ONCE .ROUTE ; Start at 08:27; Stop 01/11/18 at 08:28; Status DC Succinylcholine Chloride (Anectine) 200 mg STK-MED ONCE .ROUTE ; Start 01/11/18 at 08:28; Stop 01/11/18 at 08:29; Status DC Ephedrine Sulfate (ePHEDrine PF IN SALINE SYRINGE) 50 mg STK-MED ONCE IV ; Start 01/11/18 at 08:29; Stop 01/11/18 at 08:30; Status DC Bupivacaine HCl/ Epinephrine Bitart (Sensorcain-Mpf Epi 0.5%-[id number]) 30 ml STK -MED ONCE .ROUTE Last administered on 01/11/18at 11:35; Start 01/11/18 at 09:11 ; Stop 01/11/18 at 09:12; Status DC Isosulfan Blue (Isosulfan Blue) 50 mg STK-MED ONCE SQ ; Start 01/11/18 at 09:11 ; Stop 01/11/18 at 09:12; Status DC Sodium Chloride (Normal Saline Flush) 3 ml QSHIFT PRN IV AFTER MEDS AND BLOOD DRAWS; Start 01/11/18 at 12:15 Sodium Chloride 1,000 ml @ 50 mls/hr Q20H IV Last administered on 01/11/18at 14 :26; Start 01/11/18 at 12:11; Stop 01/12/18 at 08:04; Status DC Acetaminophen/ Hydrocodone Bitart (Lortab 5/325) 1 tab PRN Q4HRS PRN PO MILD PAIN Last administered on 01/12/18at 06:37; Start 01/11/18 at 12:15 Acetaminophen/ Hydrocodone Bitart (Lortab 5/325) 2 tab PRN Q4HRS PRN PO MODERATE PAIN, SEVERE PAIN; Start 01/11/18 at 12:15 Morphine Sulfate (Morphine Sulfate) 1 mg PRN Q1HR PRN IV PAIN Last administered on 01/11/18at 14:24; Start 01/11/18 at 12:15 Ondansetron HCl (Zofran) 4 mg PRN Q6HRS PRN IV NAUESA, 1ST CHOICE; Start at 12:15 Allopurinol (Zyloprim) 100 mg BID PO Last administered on 01/12/18at 07:59; Start 01/11/18 at 21:00 Allopurinol (Zyloprim) 100 mg DAILY PO ; Start 01/12/18 at 09:00; Status UNV Calcium Carbonate/ Glycine (Tums) 500 mg TIDAC PO Last administered on at 06:36; Start 01/11/18 at 16:30 Carvedilol (Coreg) 6.25 mg BIDWMEALS PO Last administered on 01/11/18at 15:56; Start 01/11/18 at 17:00 Cinacalcet (Sensipar) 30 mg DAILY PO Last administered on 01/12/18at 07:59; Start 01/11/18 at 13:00 Diclofenac Sodium (Voltaren) 1 charan PRN QID PRN TP PAIN Last administered on 01/11/18at 22:05; Start 01/11/18 at 12:15 Docusate Sodium (Colace) 100 mg BID PO Last administered on 01/12/18at 07:59; Start 01/11/18 at 21:00 Ferrous Sulfate (Feosol) 325 mg TIDWMEALS PO Last administered on 01/12/18at 07: 59; Start 01/11/18 at 17:00 Non-Formulary Medication (Albuterol Sulfate (Ventolin Hfa Inhaler)) 2 puff QID INH ; Start 01/11/18 at 13:00; Status UNV Calcium Acetate (Phoslo) 667 mg TIDWMEALS PO ; Start 01/11/18 at 17:00; Stop at 17:00; Status DC Diphenhydramine HCl (Benadryl) 25 mg PRN DAILY PRN PO ITCHING; Start 01/11/18 at 12:30 Fluticasone Propionate (Flonase) 2 spray PRN DAILY PRN NS ALLERGIES; Start 01/12/18 at 09:00 Non-Formulary Medication (Fluticasone/ Vilanterol (Breo Ellipta 100-25 Mcg Inh) ) 1 puff DAILY PRN IH daily; Start 01/11/18 at 12:15; Status UNV Insulin Human Lispro (HumaLOG) 15 units BIDACLD SQ ; Start 01/11/18 at 16:30; Stop 01/11/18 at 16:30; Status DC Levothyroxine Sodium (Synthroid) 150 mcg DAILY06 PO Last administered on at 06:36; Start 01/12/18 at 06:00 Albuterol Sulfate (Ventolin Neb Soln) 2.5 mg RTQID NEB Last administered on 01/12/18at 07:05; Start 01/11/18 at 16:00 Budesonide (Pulmicort) 0.5 mg RTBID NEB Last administered on 01/12/18at 07:05; Start 01/11/18 at 20:00 Insulin Human Lispro (HumaLOG VIAL) 6 unit 1X ONCE SQ Last administered on 01/11/18at 13:10; Start 01/11/18 at 13:15; Stop 01/11/18 at 13:17; Status DC Acetaminophen (Tylenol) 650 mg PRN Q6HRS PRN PO FEVER; Start 01/11/18 at 16:30 Ondansetron HCl (Zofran) 4 mg PRN Q6HRS PRN IV NAUSEA/VOMITING; Start 01/11/18 at 16:30 Morphine Sulfate (Morphine Sulfate) 2 mg PRN Q2HR PRN IV MODERATE TO SEVERE PAIN; Start 01/11/18 at 16:30 Tramadol HCl (Ultram) 50 mg PRN Q6HRS PRN PO MILD TO MODERATE PAIN; Start 01/11 at 16:30 Docusate Sodium (Colace) 100 mg PRN DAILY PRN PO CONSTIPATION; Start 01/11/18 at 16:30 Labetalol HCl (Normodyne Iv Push) 20 mg PRN Q2HR PRN IVP HYPERTENSION, SEE COMMENTS; Start 01/11/18 at 16:30 Acetaminophen/ Hydrocodone Bitart (Lortab 5/325) 1 tab PRN Q4HRS PRN PO MODERATE PAIN; Start 01/11/18 at 16:30 Insulin Glargine (Lantus) 15 units QHS SQ Last administered on 01/11/18at 22:06 ; Start 01/11/18 at 21:00 Insulin Human Lispro (HumaLOG) 5 units TIDAC SQ Last administered on 01/12/18at 08:02; Start 01/11/18 at 16:30 Insulin Human Lispro (HumaLOG) 0-9 UNITS TIDWMEALS SQ Last administered on 01/12at 08:03; Start 01/11/18 at 17:00 Dextrose (Dextrose 50%-Water Syringe) 12.5 gm PRN Q15MIN PRN IV SEE COMMENTS; Start 01/11/18 at 16:30 Insulin Human Lispro (HumaLOG) 20 units 1X ONCE SQ Last administered on at 22:12; Start 01/11/18 at 21:15; Stop 01/11/18 at 21:16; Status DC Sodium Chloride 1,000 ml @ 1,000 mls/hr Q1H PRN IV hypotension; Start 01/12/18 at 08:08; Stop 01/12/18 at 14:07 Sodium Chloride 1,000 ml @ 400 mls/hr Q2H30M PRN IV PATENCY; Start 01/12/18 at 08:08; Stop 01/12/18 at 20:07 Info (PHARMACY MONITORING -- do not chart) 1 each PRN DAILY PRN MC SEE COMMENTS ; Start 01/12/18 at 08:15; Status UNV Info (PHARMACY MONITORING -- do not chart) 1 each PRN DAILY PRN MC SEE COMMENTS ; Start 01/12/18 at 08:15 Lidocaine HCl (Xylocaine-Mpf 2% Vial) 2 ml 1X ONCE INJ Last administered on at 09:00; Start 01/12/18 at 08:30; Stop 01/12/18 at 08:33; Status DC Active Scripts Active Reported Tums (Calcium Carbonate) 200 Mg Tab.chew 2 Tab PO TIDAC Sensipar (Cinacalcet Hcl) 30 Mg Tablet 30 Mg PO DAILY Breo Ellipta 100-25 Mcg Inh (Fluticasone/Vilanterol) 1 Each Aer.pow.ba 1 Puff IH DAILY PRN Ventolin Hfa Inhaler (Albuterol Sulfate) 18 Gm Hfa.aer.ad 2 Puff INH QID Calcium Acetate 667 Mg Tablet 667 Mg PO TIDWMEALS Flonase Allergy Relief (Fluticasone Propionate) 9.9 Ml [place].susp 2 Sprays NS DAILY PRN Ferrous Sulfate 325 Mg Tablet 325 Mg PO TID Docusate Sodium 100 Mg Capsule 100 Mg PO BID Diphenhydramine Hcl 50 Mg Capsule 25 Mg PO PRN DAILY Humulin R U-500 Kwikpen (Insulin Regular, Human) 500 Unit/1 Ml Insuln.pen 15 Unit SQ BIDACLD Voltaren (Diclofenac Sodium) 100 Gm Gel..gram. 100 Gm TP PRN QID PRN [place] 10-325 Tablet (Acetaminophen/Hydrocodone Bitart) 1 Each Tablet 1 Tab PO PRN Q6HRS PRN Allopurinol 100 Mg Tablet 100 Mg PO DAILY Levothyroxine Sodium 150 Mcg Tablet 150 Mcg PO DAILYAC Carvedilol 6.25 Mg Tablet 6.25 Mg PO BIDWMEALS Allopurinol 100 Mg Tablet 100 Mg PO BID Vitals/I & O Vital Sign - Last 24 Hours 01/11/18 01/11/18 01/11/18 01/11/18 11:55 12:10 12:25 12:40 Temp 98.3 98.3 Pulse 89 86 86 87 Resp 16 16 16 B/P (MAP) 148/69 148/68 140/73 153/72 Pulse Ox 96 99 94 94 O2 Delivery Simple Mask Nasal Cannula Nasal Cannula Nasal Cannula O2 Flow Rate 10 3 2 2 01/11/18 01/11/18 01/11/18 01/11/18 12:55 13:10 13:25 13:40 Temp 98.4 98.1 98.4 98.1 Pulse 86 86 86 86 Resp 16 16 16 16 B/P (MAP) 154/75 154/75 155/75 146/66 Pulse Ox 96 96 97 96 O2 Delivery Nasal Cannula Nasal Cannula Nasal Cannula Nasal Cannula O2 Flow Rate 2 2 2 2 01/11/18 01/11/18 01/11/18 01/11/18 14:05 14:15 14:24 14:30 Temp 97.6 97.6 97.6 97.6 97.6 97.6 Pulse 88 89 86 Resp 20 20 16 20 B/P (MAP) 150/55 (86) 150/55 (86) 141/61 (87) Pulse Ox 98 97 97 O2 Delivery Nasal Cannula Nasal Cannula Room Air Nasal Cannula O2 Flow Rate 2.0 2.0 2.0 01/11/18 01/11/18 01/11/18 01/11/18 14:45 14:50 15:00 15:08 Temp 97.6 97.6 97.6 97.6 Pulse 87 88 Resp 18 18 B/P (MAP) 139/52 (81) 136/59 (84) Pulse Ox 96 98 95 O2 Delivery Nasal Cannula Nasal Cannula Nasal Cannula Nasal Cannula O2 Flow Rate 2.0 2.0 2.0 1.2 01/11/18 01/11/18 01/11/18 01/11/18 15:15 15:45 15:56 15:56 Temp 97.6 97.6 97.6 97.6 Pulse 88 90 88 Resp 18 18 B/P (MAP) 128/54 (78) 153/57 (89) 150/55 Pulse Ox 97 99 O2 Delivery Nasal Cannula Nasal Cannula Room Air O2 Flow Rate 2.0 2.0 01/11/18 01/11/18 01/11/18 01/11/18 16:15 19:00 19:27 19:39 Temp 97.6 97.8 97.6 97.8 Pulse 93 90 Resp 20 18 16 B/P (MAP) 141/56 (84) 155/77 (103) Pulse Ox 98 97 97 O2 Delivery Nasal Cannula Nasal Cannula Nasal Cannula Nasal Cannula O2 Flow Rate 2.0 2.0 2.0 2.0 01/11/18 01/11/18 01/11/18 01/12/18 20:00 23:00 23:33 00:40 Temp 97.8 97.8 Pulse 84 Resp 18 16 B/P (MAP) 175/69 (104) Pulse Ox 98 97 97 O2 Delivery Nasal Cannula Nasal Cannula Nasal Cannula O2 Flow Rate 2.0 2.0 2.0 01/12/18 01/12/18 01/12/18 01/12/18 03:00 06:37 07:00 07:05 Temp 98.1 97.9 98.1 97.9 Pulse 82 81 Resp 18 16 18 B/P (MAP) 106/54 (71) 110/46 (67) Pulse Ox 99 99 100 97 O2 Delivery Nasal Cannula Nasal Cannula Nasal Cannula Nasal Cannula O2 Flow Rate 2.0 2.0 2.0 2.0 01/12/18 01/12/18 08:00 08:00 Pulse 81 Resp 16 B/P (MAP) 110/46 O2 Delivery Nasal Cannula O2 Flow Rate 2.0 Intake and Output 01/11/18 01/11/18 01/12/18 15:00 23:00 07:00 Intake Total 50 ml 900 ml Balance 50 ml 900 ml NEVA MCMANUS MD Jan 12, 2018 10:08
--- NOTE | 2018-01-12 10:10 | DISCH ---
DISCHARGE INSTRUCTIONS Condition on Discharge Condition on Discharge: Stable Activity After Discharge Activity Instructions for Disc: Resume previous activity Diet after Discharge Diet after Discharge: Renal Dialysis Wound Incision Care Wound/Incision Care: Other, see below (May remove R breast dressings in 2 days and shower) Follow-Up Follow up with: Dr Mcmanus in 1 week, call for appt [phone] NEVA MCMANUS MD Jan 12, 2018 10:10
--- NOTE | 2018-01-12 10:12 | PDOC3 ---
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, intraductal papilloma Brief Hospital Course Allergies Allergies Coded Allergies Type Severity Reaction Last Updated Verified meperidine Allergy Intermediate 01/11/18 Yes Vital Signs Vital Signs Date Time Temp Pulse Resp B/P (MAP) Pulse Ox O2 Delivery O2 Flow Rate FiO2 01/12/18 08:00 81 110/46 01/12/18 08:00 16 Nasal Cannula 2.0 01/12/18 07:05 97 01/12/18 07:00 97.9 97.9 Lab Results Laboratory Tests Test 01/11/18 08:13 01/11/18 09:20 01/11/18 12:06 01/11/18 12:52 Glucose (Fingerstick) 304 mg/dL (70-99) 253 mg/dL (70-99) 207 mg/dL (70-99) 228 mg/dL (70-99) Test 01/11/18 14:10 01/11/18 16:38 01/11/18 20:38 01/12/18 03:30 Glucose (Fingerstick) 204 mg/dL (70-99) 290 mg/dL (70-99) 409 mg/dL (70-99) White Blood Count 14.0 x10^3/uL (4.0-11.0) Red Blood Count 3.36 x10^6/uL (3.50-5.40) Hemoglobin 10.6 g/dL (12.0-15.5) Hematocrit 34.0 % (36.0-47.0) Mean Corpuscular Volume 101 fL (79-100) Mean Corpuscular Hemoglobin 31 pg (25-35) Mean Corpuscular Hemoglobin Concent 31 g/dL (31-37) Red Cell Distribution Width 15.0 % (11.5-14.5) Platelet Count 232 x10^3/uL (140-400) Neutrophils (%) (Auto) 84 % (31-73) Lymphocytes (%) (Auto) 9 % (24-48) Monocytes (%) (Auto) 7 % (0-9) Eosinophils (%) (Auto) 0 % (0-3) Basophils (%) (Auto) 0 % (0-3) Neutrophils # (Auto) 11.8 x10^3uL (1.8-7.7) Lymphocytes # (Auto) 1.2 x10^3/uL (1.0-4.8) Monocytes # (Auto) 1.0 x10^3/uL (0.0-1.1) Eosinophils # (Auto) 0.0 x10^3/uL (0.0-0.7) Basophils # (Auto) 0.0 x10^3/uL (0.0-0.2) Sodium Level 134 mmol/L (136-145) Potassium Level 5.1 mmol/L (3.5-5.1) Chloride Level 97 mmol/L (98-107) Carbon Dioxide Level 26 mmol/L (21-32) Anion Gap 11 (6-14) Blood Urea Nitrogen 53 mg/dL (7-20) Creatinine 7.9 mg/dL (0.6-1.0) Estimated GFR (Cockcroft-Gault) 6.1 Glucose Level 404 mg/dL (70-99) Calcium Level 7.2 mg/dL (8.5-10.1) Test 01/12/18 07:37 Glucose (Fingerstick) 320 mg/dL (70-99) Laboratory Tests Test 01/11/18 12:06 01/11/18 12:52 01/11/18 14:10 01/11/18 16:38 Glucose (Fingerstick) 207 mg/dL (70-99) 228 mg/dL (70-99) 204 mg/dL (70-99) 290 mg/dL (70-99) Test 01/11/18 20:38 01/12/18 03:30 01/12/18 07:37 Glucose (Fingerstick) 409 mg/dL (70-99) 320 mg/dL (70-99) White Blood Count 14.0 x10^3/uL (4.0-11.0) Red Blood Count 3.36 x10^6/uL (3.50-5.40) Hemoglobin 10.6 g/dL (12.0-15.5) Hematocrit 34.0 % (36.0-47.0) Mean Corpuscular Volume 101 fL (79-100) Mean Corpuscular Hemoglobin 31 pg (25-35) Mean Corpuscular Hemoglobin Concent 31 g/dL (31-37) Red Cell Distribution Width 15.0 % (11.5-14.5) Platelet Count 232 x10^3/uL (140-400) Neutrophils (%) (Auto) 84 % (31-73) Lymphocytes (%) (Auto) 9 % (24-48) Monocytes (%) (Auto) 7 % (0-9) Eosinophils (%) (Auto) 0 % (0-3) Basophils (%) (Auto) 0 % (0-3) Neutrophils # (Auto) 11.8 x10^3uL (1.8-7.7) Lymphocytes # (Auto) 1.2 x10^3/uL (1.0-4.8) Monocytes # (Auto) 1.0 x10^3/uL (0.0-1.1) Eosinophils # (Auto) 0.0 x10^3/uL (0.0-0.7) Basophils # (Auto) 0.0 x10^3/uL (0.0-0.2) Sodium Level 134 mmol/L (136-145) Potassium Level 5.1 mmol/L (3.5-5.1) Chloride Level 97 mmol/L (98-107) Carbon Dioxide Level 26 mmol/L (21-32) Anion Gap 11 (6-14) Blood Urea Nitrogen 53 mg/dL (7-20) Creatinine 7.9 mg/dL (0.6-1.0) Estimated GFR (Cockcroft-Gault) 6.1 Glucose Level 404 mg/dL (70-99) Calcium Level 7.2 mg/dL (8.5-10.1) Brief Hospital Course Ms. 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 She was admitted on January 11 for surgical treatment. She underwent a right lumpectomy and excision of the intraductal papilloma. She tolerated surgery well and was admitted to a hospital bed. She was dialyzed the following morning and clinically was doing well. She appeared stable for discharge and is to be discharged home. Discharge Information Condition at Discharge: Stable Follow Up: Weeks (1 week) Disposition/Orders: D/C to Home Scheduled Albuterol Sulfate (Ventolin Hfa Inhaler) 18 Gm Hfa.aer.ad, 2 PUFF INH QID for FOR ASTHMA, Ref 0 (Reported) Entered as Reported by: FELIPA RICKETTS on 01/10/181844 Last Action: Converted on 01/11/181215 by NEVA MCMANUS Allopurinol (Allopurinol) 100 Mg Tablet, 100 MG PO BID for GOUT, (Reported) Entered as Reported by: FELIPA RICKETTS on 01/10/18 1532 Last Taken: Unknown Dose on 01/11/18 0600 Last Action: Continued on 1215 by NEVA MCMANUS Allopurinol (Allopurinol) 100 Mg Tablet, 100 MG PO DAILY for gout, (Reported) Entered as Reported by: FELIPA RICKETTS on 01/10/181844 Last Action: Continued on 01/11/181215 by NEVA MCMANUS Calcium Acetate (Calcium Acetate) 667 Mg Tablet, 667 MG PO TIDWMEALS for DIALYSIS PATIENTS, (Reported) Entered as Reported by: FELIPA RICKETTS on 01/10/181844 Last Action: Converted on 01/11/181215 by NEVA MCMANUS Calcium Carbonate (Tums) 200 Mg Tab.chew, 2 TAB PO TIDAC for calcium supplement, (Reported) Entered as Reported by: FELIPA RICKETTS on 01/10/181844 Last Action: Continued on 01/11/181215 by NEVA MCMANUS Carvedilol (Carvedilol) 6.25 Mg Tablet, 6.25 MG PO BIDWMEALS for hypertension, ( Reported) Entered as Reported by: FELIPA RICKETTS on 01/10/181844 Last Taken: Unknown Dose on 01/10/18 1800 Last Action: Continued on 1215 by NEVA MCMANUS Cinacalcet Hcl (Sensipar) 30 Mg Tablet, 30 MG PO DAILY for supplement, (Reported ) Entered as Reported by: FELIPA RICKETTS on 01/10/181844 Last Action: Continued on 01/11/181215 by NEVA MCMANUS Diphenhydramine Hcl (Diphenhydramine Hcl) 50 Mg Capsule, 25 MG PO PRN DAILY for itching, (Reported) Entered as Reported by: FELIPA RICKETTS on 01/10/181844 Last Action: Converted on 01/11/181215 by NEVA MCMANUS Docusate Sodium (Docusate Sodium) 100 Mg Capsule, 100 MG PO BID for constipation , (Reported) Entered as Reported by: FELIPA RICKETTS on 01/10/181844 Last Action: Continued on 01/11/181215 by NEVA MCMANUS Ferrous Sulfate (Ferrous Sulfate) 325 Mg Tablet, 325 MG PO TID for anemia, ( Reported) Entered as Reported by: FELIPA RICKETTS on 01/10/181844 Last Action: Continued on 01/11/181215 by NEVA MCMANUS Insulin Regular, Human (Humulin R U-500 Kwikpen) 500 Unit/1 Ml Insuln.pen, 15 UNIT SQ BIDACLD for diabetes, (Reported) Entered as Reported by: FELIPA RICKETTS on 01/10/181844 Last Taken: Unknown Dose on 01/10/181799 Last Action: Converted on 1215 by NEVA MCMANUS Levothyroxine Sodium (Levothyroxine Sodium) 150 Mcg Tablet, 150 MCG PO DAILYAC for THYROID SUPPLEMENT, #30 Ref 0 (Reported) Entered as Reported by: FELIPA RICKETTS on 01/10/181844 Last Action: Converted on 01/11/181215 by NEVA MCMANUS Scheduled PRN Diclofenac Sodium (Voltaren) 100 Gm Gel..gram., 100 GM TP PRN QID PRN for PAIN, (Reported) Entered as Reported by: FELIPA RICKETTS on 01/10/181844 Last Action: Continued on 01/11/181215 by NEVA MCMANUS Fluticasone Propionate (Flonase Allergy Relief) 9.9 Ml [place].susp, 2 SPRAYS NS DAILY PRN for ALLERGIES, (Reported) Entered as Reported by: FELIPA RICKETTS on 01/10/181844 Last Action: Converted on 01/11/181215 by NEVA MCMANUS Fluticasone/Vilanterol (Breo Ellipta 100-25 Mcg Inh) 1 Each Aer.pow.ba, 1 PUFF IH DAILY PRN for daily, (Reported) Entered as Reported by: FELIPA RICKETTS on 01/10/181844 Last Action: Converted on 01/11/181215 by NEVA MCMANUS Hydrocodone/Apap 10-325 ([place] 10-325 Tablet) 1 Each Tablet, 1 TAB PO PRN Q6HRS PRN for PAIN, Ref 0 (Reported) Entered as Reported by: FELIPA RICKETTS on 01/10/18 1845 Last Action: HELD on 01/11/18 1216 by NEVA BAUTISTA MD Jan 12, 2018 10:12
--- NOTE | 2018-01-12 11:21 | PDOC2 ---
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 She has been on HD for 3 years , not significant RRF . No complaints currently- seen on HD She reports 2 rt breast nodules was removed, has some + pain and tenderness. No fever, chills, no N/V, Past Surgical History Past Surgical History: CABG Family History Family History: Hypertension Social History No ALCOHOL: none Lives: with Family Domestic Violence: Neg Current Medications Current Medications Current Medications Ondansetron HCl (Zofran) 4 mg PRN Q6HRS PRN IV NAUSEA/VOMITING; Start 01/11/18 at 07:00; Stop 01/11/18 at 18:00; Status DC Fentanyl Citrate (Fentanyl 2ml Vial) 25 mcg PRN Q5MIN PRN IV MILD PAIN; Start 01/11/18 at 07:00; Stop 01/12/18 at 06:59; Status UNV Fentanyl Citrate (Fentanyl 2ml Vial) 50 mcg PRN Q5MIN PRN IV MODERATE TO SEVERE PAIN; Start 01/11/18 at 07:00; Stop 01/12/18 at 06:59; Status UNV Morphine Sulfate (Morphine Sulfate) 1 mg PRN Q10MIN PRN IV SEVERE PAIN Last administered on 01/11/18at 12:19; Start 01/11/18 at 07:00; Stop 01/11/18 at 18:00 ; Status DC Ringer's Solution 1,000 ml @ 30 mls/hr Q24H IV ; Start 01/11/18 at 07:00; Stop 01/11/18 at 18:59; Status DC Lidocaine HCl (Xylocaine-Mpf 1% 2ml Vial) 2 ml PRN 1X PRN ID IV START; Start 01/11/18 at 07:00; Stop 01/11/18 at 18:00; Status DC Hydromorphone HCl (Dilaudid) 0.5 mg PRN Q10MIN PRN IV SEV PAIN, Second choice; Start 01/11/18 at 07:00; Stop 01/11/18 at 18:00; Status DC Prochlorperazine Edisylate (Compazine) 5 mg PACU PRN PRN IV NAUSEA, MRX1; Start 01/11/18 at 07:00; Stop 01/11/18 at 18:00; Status DC Cefazolin Sodium/ Dextrose 50 ml @ 100 mls/hr 1X PREOP PRN IV PRIOR TO PROCEDURE; Start 01/11/18 at 06:00; Stop 01/11/18 at 18:00; Status DC Sodium Chloride 1,000 ml @ 75 mls/hr [id number] IV Last administered on at 07:46; Start 01/11/18 at 07:00; Stop 01/11/18 at 16:29; Status DC Lidocaine/Sodium Bicarbonate (Buffered Lidocaine 1%) 6 ml 1X ONCE INJ Last administered on 01/11/18at 08:50; Start 01/11/18 at 07:45; Stop 01/11/18 at 07:48 ; Status DC Lidocaine/Sodium Bicarbonate (Buffered Lidocaine 1%) 3 ml STK-MED ONCE .ROUTE ; Start 01/11/18 at 07:48; Stop 01/11/18 at 07:49; Status DC Insulin Human Lispro (HumaLOG VIAL) 20 unit 1X ONCE SQ Last administered on at 08:21; Start 01/11/18 at 08:30; Stop 01/11/18 at 08:31; Status DC Propofol 20 ml @ As Directed STK-MED ONCE IV ; Start 01/11/18 at 08:27; Stop at 08:28; Status DC Dexamethasone Sodium Phosphate (Decadron) 20 mg STK-MED ONCE .ROUTE ; Start 01/11/18 at 08:27; Stop 01/11/18 at 08:28; Status DC Ondansetron HCl (Zofran) 4 mg STK-MED ONCE .ROUTE ; Start 01/11/18 at 08:27; Stop 01/11/18 at 08:28; Status DC Fentanyl Citrate (Fentanyl 2ml Vial) 100 mcg STK-MED ONCE .ROUTE ; Start at 08:27; Stop 01/11/18 at 08:28; Status DC Succinylcholine Chloride (Anectine) 200 mg STK-MED ONCE .ROUTE ; Start 01/11/18 at 08:28; Stop 01/11/18 at 08:29; Status DC Ephedrine Sulfate (ePHEDrine PF IN SALINE SYRINGE) 50 mg STK-MED ONCE IV ; Start 01/11/18 at 08:29; Stop 01/11/18 at 08:30; Status DC Bupivacaine HCl/ Epinephrine Bitart (Sensorcain-Mpf Epi 0.5%-[id number]) 30 ml STK -MED ONCE .ROUTE Last administered on 01/11/18at 11:35; Start 01/11/18 at 09:11 ; Stop 01/11/18 at 09:12; Status DC Isosulfan Blue (Isosulfan Blue) 50 mg STK-MED ONCE SQ ; Start 01/11/18 at 09:11 ; Stop 01/11/18 at 09:12; Status DC Sodium Chloride (Normal Saline Flush) 3 ml QSHIFT PRN IV AFTER MEDS AND BLOOD DRAWS; Start 01/11/18 at 12:15 Sodium Chloride 1,000 ml @ 50 mls/hr Q20H IV Last administered on 01/11/18at 14 :26; Start 01/11/18 at 12:11; Stop 01/12/18 at 08:04; Status DC Acetaminophen/ Hydrocodone Bitart (Lortab 5/325) 1 tab PRN Q4HRS PRN PO MILD PAIN Last administered on 01/12/18at 06:37; Start 01/11/18 at 12:15 Acetaminophen/ Hydrocodone Bitart (Lortab 5/325) 2 tab PRN Q4HRS PRN PO MODERATE PAIN, SEVERE PAIN; Start 01/11/18 at 12:15 Morphine Sulfate (Morphine Sulfate) 1 mg PRN Q1HR PRN IV PAIN Last administered on 01/11/18at 14:24; Start 01/11/18 at 12:15 Ondansetron HCl (Zofran) 4 mg PRN Q6HRS PRN IV NAUESA, 1ST CHOICE; Start at 12:15 Allopurinol (Zyloprim) 100 mg BID PO Last administered on 01/12/18at 07:59; Start 01/11/18 at 21:00 Allopurinol (Zyloprim) 100 mg DAILY PO ; Start 01/12/18 at 09:00; Status UNV Calcium Carbonate/ Glycine (Tums) 500 mg TIDAC PO Last administered on 06:36; Start 01/11/18 at 16:30 Carvedilol (Coreg) 6.25 mg BIDWMEALS PO Last administered on 01/11/18at 15:56; Start 01/11/18 at 17:00 Cinacalcet (Sensipar) 30 mg DAILY PO Last administered on 01/12/18at 07:59; Start 01/11/18 at 13:00 Diclofenac Sodium (Voltaren) 1 charan PRN QID PRN TP PAIN Last administered on 01/11/18at 22:05; Start 01/11/18 at 12:15 Docusate Sodium (Colace) 100 mg BID PO Last administered on 01/12/18at 07:59; Start 01/11/18 at 21:00 Ferrous Sulfate (Feosol) 325 mg TIDWMEALS PO Last administered on 01/12/18at 07: 59; Start 01/11/18 at 17:00 Non-Formulary Medication (Albuterol Sulfate (Ventolin Hfa Inhaler)) 2 puff QID INH ; Start 01/11/18 at 13:00; Status UNV Calcium Acetate (Phoslo) 667 mg TIDWMEALS PO ; Start 01/11/18 at 17:00; Stop at 17:00; Status DC Diphenhydramine HCl (Benadryl) 25 mg PRN DAILY PRN PO ITCHING; Start 01/11/18 at 12:30 Fluticasone Propionate (Flonase) 2 spray PRN DAILY PRN NS ALLERGIES; Start 01/12/18 at 09:00 Non-Formulary Medication (Fluticasone/ Vilanterol (Breo Ellipta 100-25 Mcg Inh) ) 1 puff DAILY PRN IH daily; Start 01/11/18 at 12:15; Status UNV Insulin Human Lispro (HumaLOG) 15 units BIDACLD SQ ; Start 01/11/18 at 16:30; Stop 01/11/18 at 16:30; Status DC Levothyroxine Sodium (Synthroid) 150 mcg DAILY06 PO Last administered on at 06:36; Start 01/12/18 at 06:00 Albuterol Sulfate (Ventolin Neb Soln) 2.5 mg RTQID NEB Last administered on 01/12/18at 07:05; Start 01/11/18 at 16:00 Budesonide (Pulmicort) 0.5 mg RTBID NEB Last administered on 01/12/18at 07:05; Start 01/11/18 at 20:00 Insulin Human Lispro (HumaLOG VIAL) 6 unit 1X ONCE SQ Last administered on 01/11/18at 13:10; Start 01/11/18 at 13:15; Stop 01/11/18 at 13:17; Status DC Acetaminophen (Tylenol) 650 mg PRN Q6HRS PRN PO FEVER; Start 01/11/18 at 16:30 Ondansetron HCl (Zofran) 4 mg PRN Q6HRS PRN IV NAUSEA/VOMITING; Start 01/11/18 at 16:30 Morphine Sulfate (Morphine Sulfate) 2 mg PRN Q2HR PRN IV MODERATE TO SEVERE PAIN; Start 01/11/18 at 16:30 Tramadol HCl (Ultram) 50 mg PRN Q6HRS PRN PO MILD TO MODERATE PAIN; Start 01/11 at 16:30 Docusate Sodium (Colace) 100 mg PRN DAILY PRN PO CONSTIPATION; Start 01/11/18 at 16:30 Labetalol HCl (Normodyne Iv Push) 20 mg PRN Q2HR PRN IVP HYPERTENSION, SEE COMMENTS; Start 01/11/18 at 16:30 Acetaminophen/ Hydrocodone Bitart (Lortab 5/325) 1 tab PRN Q4HRS PRN PO MODERATE PAIN; Start 01/11/18 at 16:30 Insulin Glargine (Lantus) 15 units QHS SQ Last administered on 01/11/18at 22:06 ; Start 01/11/18 at 21:00; Stop 01/12/18 at 10:30; Status DC Insulin Human Lispro (HumaLOG) 5 units TIDAC SQ Last administered on 01/12/18at 08:02; Start 01/11/18 at 16:30; Stop 01/12/18 at 10:30; Status DC Insulin Human Lispro (HumaLOG) 0-9 UNITS TIDWMEALS SQ Last administered on 01/12at 08:03; Start 01/11/18 at 17:00 Dextrose (Dextrose 50%-Water Syringe) 12.5 gm PRN Q15MIN PRN IV SEE COMMENTS; Start 01/11/18 at 16:30 Insulin Human Lispro (HumaLOG) 20 units 1X ONCE SQ Last administered on at 22:12; Start 01/11/18 at 21:15; Stop 01/11/18 at 21:16; Status DC Sodium Chloride 1,000 ml @ 1,000 mls/hr Q1H PRN IV hypotension; Start 01/12/18 at 08:08; Stop 01/12/18 at 14:07 Sodium Chloride 1,000 ml @ 400 mls/hr Q2H30M PRN IV PATENCY; Start 01/12/18 at 08:08; Stop 01/12/18 at 20:07 Info (PHARMACY MONITORING -- do not chart) 1 each PRN DAILY PRN MC SEE COMMENTS ; Start 01/12/18 at 08:15; Status UNV Info (PHARMACY MONITORING -- do not chart) 1 each PRN DAILY PRN MC SEE COMMENTS ; Start 01/12/18 at 08:15 Lidocaine HCl (Xylocaine-Mpf 2% Vial) 2 ml 1X ONCE INJ Last administered on at 09:00; Start 01/12/18 at 08:30; Stop 01/12/18 at 08:33; Status DC Insulin Glargine (Lantus) 30 units QHS SQ ; Start 01/12/18 at 21:00 Insulin Human Lispro (HumaLOG) 10 units TIDAC SQ ; Start 01/12/18 at 11:30 Active Scripts Active Reported Tums (Calcium Carbonate) 200 Mg Tab.chew 2 Tab PO TIDAC Sensipar (Cinacalcet Hcl) 30 Mg Tablet 30 Mg PO DAILY Breo Ellipta 100-25 Mcg Inh (Fluticasone/Vilanterol) 1 Each Aer.pow.ba 1 Puff IH DAILY PRN Ventolin Hfa Inhaler (Albuterol Sulfate) 18 Gm Hfa.aer.ad 2 Puff INH QID Calcium Acetate 667 Mg Tablet 667 Mg PO TIDWMEALS Flonase Allergy Relief (Fluticasone Propionate) 9.9 Ml [place].susp 2 Sprays NS DAILY PRN Ferrous Sulfate 325 Mg Tablet 325 Mg PO TID Docusate Sodium 100 Mg Capsule 100 Mg PO BID Diphenhydramine Hcl 50 Mg Capsule 25 Mg PO PRN DAILY Humulin R U-500 Kwikpen (Insulin Regular, Human) 500 Unit/1 Ml Insuln.pen 15 Unit SQ BIDACLD Voltaren (Diclofenac Sodium) 100 Gm Gel..gram. 100 Gm TP PRN QID PRN [place] 10-325 Tablet (Acetaminophen/Hydrocodone Bitart) 1 Each Tablet 1 Tab PO PRN Q6HRS PRN Allopurinol 100 Mg Tablet 100 Mg PO DAILY Levothyroxine Sodium 150 Mcg Tablet 150 Mcg PO DAILYAC Carvedilol 6.25 Mg Tablet 6.25 Mg PO BIDWMEALS Allopurinol 100 Mg Tablet 100 Mg PO BID Allergies Allergies: Coded Allergies: meperidine (Verified Allergy, Intermediate, 01/11/18) ROS Review of System As per HPI Physical Exam Physical Exam General: NAD Cooperative HEENT: OM moist Lungs: Clear to auscultation, Non labored Heart: Regular rate, Normal S1, Normal S2 Abdomen: Normal bowel sounds, Soft Extremities: No edema Skin: No rashes, (rt breast lower outer and lower inner quadrant has post op sx wound with dressing on. + tenderness. ) Neuro: Grossly normal - no Weaver Vital Signs Vital Signs Date Time Temp Pulse Resp B/P (MAP) Pulse Ox O2 Delivery O2 Flow Rate FiO2 01/12/18 08:00 81 110/46 01/12/18 08:00 16 Nasal Cannula 2.0 01/12/18 07:05 97 01/12/18 07:00 97.9 97.9 Assessment & Plan ESRD- MM[facility] - Dr. 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 Labs Labs Laboratory Tests Test 01/11/18 08:13 01/11/18 09:20 01/11/18 12:06 01/11/18 12:52 Glucose (Fingerstick) 304 mg/dL (70-99) 253 mg/dL (70-99) 207 mg/dL (70-99) 228 mg/dL (70-99) Test 01/11/18 14:10 01/11/18 16:38 01/11/18 20:38 01/12/18 03:30 Glucose (Fingerstick) 204 mg/dL (70-99) 290 mg/dL (70-99) 409 mg/dL (70-99) White Blood Count 14.0 x10^3/uL (4.0-11.0) Red Blood Count 3.36 x10^6/uL (3.50-5.40) Hemoglobin 10.6 g/dL (12.0-15.5) Hematocrit 34.0 % (36.0-47.0) Mean Corpuscular Volume 101 fL (79-100) Mean Corpuscular Hemoglobin 31 pg (25-35) Mean Corpuscular Hemoglobin Concent 31 g/dL (31-37) Red Cell Distribution Width 15.0 % (11.5-14.5) Platelet Count 232 x10^3/uL (140-400) Neutrophils (%) (Auto) 84 % (31-73) Lymphocytes (%) (Auto) 9 % (24-48) Monocytes (%) (Auto) 7 % (0-9) Eosinophils (%) (Auto) 0 % (0-3) Basophils (%) (Auto) 0 % (0-3) Neutrophils # (Auto) 11.8 x10^3uL (1.8-7.7) Lymphocytes # (Auto) 1.2 x10^3/uL (1.0-4.8) Monocytes # (Auto) 1.0 x10^3/uL (0.0-1.1) Eosinophils # (Auto) 0.0 x10^3/uL (0.0-0.7) Basophils # (Auto) 0.0 x10^3/uL (0.0-0.2) Sodium Level 134 mmol/L (136-145) Potassium Level 5.1 mmol/L (3.5-5.1) Chloride Level 97 mmol/L (98-107) Carbon Dioxide Level 26 mmol/L (21-32) Anion Gap 11 (6-14) Blood Urea Nitrogen 53 mg/dL (7-20) Creatinine 7.9 mg/dL (0.6-1.0) Estimated GFR (Cockcroft-Gault) 6.1 Glucose Level 404 mg/dL (70-99) Calcium Level 7.2 mg/dL (8.5-10.1) Test 01/12/18 07:37 Glucose (Fingerstick) 320 mg/dL (70-99) Laboratory Tests Test 01/11/18 12:06 01/11/18 12:52 01/11/18 14:10 01/11/18 16:38 Glucose (Fingerstick) 207 mg/dL (70-99) 228 mg/dL (70-99) 204 mg/dL (70-99) 290 mg/dL (70-99) Test 01/11/18 20:38 01/12/18 03:30 01/12/18 07:37 Glucose (Fingerstick) 409 mg/dL (70-99) 320 mg/dL (70-99) White Blood Count 14.0 x10^3/uL (4.0-11.0) Red Blood Count 3.36 x10^6/uL (3.50-5.40) Hemoglobin 10.6 g/dL (12.0-15.5) Hematocrit 34.0 % (36.0-47.0) Mean Corpuscular Volume 101 fL (79-100) Mean Corpuscular Hemoglobin 31 pg (25-35) Mean Corpuscular Hemoglobin Concent 31 g/dL (31-37) Red Cell Distribution Width 15.0 % (11.5-14.5) Platelet Count 232 x10^3/uL (140-400) Neutrophils (%) (Auto) 84 % (31-73) Lymphocytes (%) (Auto) 9 % (24-48) Monocytes (%) (Auto) 7 % (0-9) Eosinophils (%) (Auto) 0 % (0-3) Basophils (%) (Auto) 0 % (0-3) Neutrophils # (Auto) 11.8 x10^3uL (1.8-7.7) Lymphocytes # (Auto) 1.2 x10^3/uL (1.0-4.8) Monocytes # (Auto) 1.0 x10^3/uL (0.0-1.1) Eosinophils # (Auto) 0.0 x10^3/uL (0.0-0.7) Basophils # (Auto) 0.0 x10^3/uL (0.0-0.2) Sodium Level 134 mmol/L (136-145) Potassium Level 5.1 mmol/L (3.5-5.1) Chloride Level 97 mmol/L (98-107) Carbon Dioxide Level 26 mmol/L (21-32) Anion Gap 11 (6-14) Blood Urea Nitrogen 53 mg/dL (7-20) Creatinine 7.9 mg/dL (0.6-1.0) Estimated GFR (Cockcroft-Gault) 6.1 Glucose Level 404 mg/dL (70-99) Calcium Level 7.2 mg/dL (8.5-10.1) Review All relevant outside records, renal labs, imaging studies, telemetry/EKG's were reviewed. RANI ERICKSON MD Jan 12, 2018 11:21
[2018-01-12] MEDS ORDERED: INSULIN LISPRO 300 UNITS/3 ML INSULN.PEN. SQ SCH (11:30)
--- NOTE | 2018-01-12 12:30 | PDOC ---
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 talked to Nurse cont other home meds pt's DM not controlled, on regular insulin tid at home. i told her to fu with her own endo lavon to better control dm2. stable to dc as per sx. thanks for asking for consult History of Present Illness History of Present Illness feels good hyperglycemia Vitals Vitals Vital Signs Date Time Temp Pulse Resp B/P (MAP) Pulse Ox O2 Delivery O2 Flow Rate FiO2 01/12/18 08:00 Nasal Cannula 2.0 01/12/18 08:00 81 110/46 01/12/18 08:00 16 01/12/18 07:05 97 01/12/18 07:00 97.9 97.9 Physical Exam Physical Exam skin: rt breast clean wound General: Alert, Oriented X3, Cooperative Heart: Regular rate, Normal S1, Normal S2 Lungs: Clear Abdomen: Normal bowel sounds, Soft Extremities: No clubbing, No cyanosis Skin: No rashes, Other (rt breast lower outer and lower inner quadrant has post op sx wound with dressing on. + tenderness. ) Labs LABS Laboratory Tests Test 01/11/18 12:52 01/11/18 14:10 01/11/18 16:38 01/11/18 20:38 Glucose (Fingerstick) 228 mg/dL (70-99) 204 mg/dL (70-99) 290 mg/dL (70-99) 409 mg/dL (70-99) Test 01/12/18 03:30 01/12/18 07:37 White Blood Count 14.0 x10^3/uL (4.0-11.0) Red Blood Count 3.36 x10^6/uL (3.50-5.40) Hemoglobin 10.6 g/dL (12.0-15.5) Hematocrit 34.0 % (36.0-47.0) Mean Corpuscular Volume 101 fL (79-100) Mean Corpuscular Hemoglobin 31 pg (25-35) Mean Corpuscular Hemoglobin Concent 31 g/dL (31-37) Red Cell Distribution Width 15.0 % (11.5-14.5) Platelet Count 232 x10^3/uL (140-400) Neutrophils (%) (Auto) 84 % (31-73) Lymphocytes (%) (Auto) 9 % (24-48) Monocytes (%) (Auto) 7 % (0-9) Eosinophils (%) (Auto) 0 % (0-3) Basophils (%) (Auto) 0 % (0-3) Neutrophils # (Auto) 11.8 x10^3uL (1.8-7.7) Lymphocytes # (Auto) 1.2 x10^3/uL (1.0-4.8) Monocytes # (Auto) 1.0 x10^3/uL (0.0-1.1) Eosinophils # (Auto) 0.0 x10^3/uL (0.0-0.7) Basophils # (Auto) 0.0 x10^3/uL (0.0-0.2) Sodium Level 134 mmol/L (136-145) Potassium Level 5.1 mmol/L (3.5-5.1) Chloride Level 97 mmol/L (98-107) Carbon Dioxide Level 26 mmol/L (21-32) Anion Gap 11 (6-14) Blood Urea Nitrogen 53 mg/dL (7-20) Creatinine 7.9 mg/dL (0.6-1.0) Estimated GFR (Cockcroft-Gault) 6.1 Glucose Level 404 mg/dL (70-99) Calcium Level 7.2 mg/dL (8.5-10.1) Glucose (Fingerstick) 320 mg/dL (70-99) Comment Review of Relevant I have reviewed the following items filippo (where applicable) has been applied. Labs Laboratory Tests Test 01/11/18 08:13 01/11/18 09:20 01/11/18 12:06 01/11/18 12:52 Glucose (Fingerstick) 304 mg/dL (70-99) 253 mg/dL (70-99) 207 mg/dL (70-99) 228 mg/dL (70-99) Test 01/11/18 14:10 01/11/18 16:38 01/11/18 20:38 01/12/18 03:30 Glucose (Fingerstick) 204 mg/dL (70-99) 290 mg/dL (70-99) 409 mg/dL (70-99) White Blood Count 14.0 x10^3/uL (4.0-11.0) Red Blood Count 3.36 x10^6/uL (3.50-5.40) Hemoglobin 10.6 g/dL (12.0-15.5) Hematocrit 34.0 % (36.0-47.0) Mean Corpuscular Volume 101 fL (79-100) Mean Corpuscular Hemoglobin 31 pg (25-35) Mean Corpuscular Hemoglobin Concent 31 g/dL (31-37) Red Cell Distribution Width 15.0 % (11.5-14.5) Platelet Count 232 x10^3/uL (140-400) Neutrophils (%) (Auto) 84 % (31-73) Lymphocytes (%) (Auto) 9 % (24-48) Monocytes (%) (Auto) 7 % (0-9) Eosinophils (%) (Auto) 0 % (0-3) Basophils (%) (Auto) 0 % (0-3) Neutrophils # (Auto) 11.8 x10^3uL (1.8-7.7) Lymphocytes # (Auto) 1.2 x10^3/uL (1.0-4.8) Monocytes # (Auto) 1.0 x10^3/uL (0.0-1.1) Eosinophils # (Auto) 0.0 x10^3/uL (0.0-0.7) Basophils # (Auto) 0.0 x10^3/uL (0.0-0.2) Sodium Level 134 mmol/L (136-145) Potassium Level 5.1 mmol/L (3.5-5.1) Chloride Level 97 mmol/L (98-107) Carbon Dioxide Level 26 mmol/L (21-32) Anion Gap 11 (6-14) Blood Urea Nitrogen 53 mg/dL (7-20) Creatinine 7.9 mg/dL (0.6-1.0) Estimated GFR (Cockcroft-Gault) 6.1 Glucose Level 404 mg/dL (70-99) Calcium Level 7.2 mg/dL (8.5-10.1) Test 01/12/18 07:37 Glucose (Fingerstick) 320 mg/dL (70-99) Laboratory Tests Test 01/11/18 12:52 01/11/18 14:10 01/11/18 16:38 01/11/18 20:38 Glucose (Fingerstick) 228 mg/dL (70-99) 204 mg/dL (70-99) 290 mg/dL (70-99) 409 mg/dL (70-99) Test 01/12/18 03:30 01/12/18 07:37 White Blood Count 14.0 x10^3/uL (4.0-11.0) Red Blood Count 3.36 x10^6/uL (3.50-5.40) Hemoglobin 10.6 g/dL (12.0-15.5) Hematocrit 34.0 % (36.0-47.0) Mean Corpuscular Volume 101 fL (79-100) Mean Corpuscular Hemoglobin 31 pg (25-35) Mean Corpuscular Hemoglobin Concent 31 g/dL (31-37) Red Cell Distribution Width 15.0 % (11.5-14.5) Platelet Count 232 x10^3/uL (140-400) Neutrophils (%) (Auto) 84 % (31-73) Lymphocytes (%) (Auto) 9 % (24-48) Monocytes (%) (Auto) 7 % (0-9) Eosinophils (%) (Auto) 0 % (0-3) Basophils (%) (Auto) 0 % (0-3) Neutrophils # (Auto) 11.8 x10^3uL (1.8-7.7) Lymphocytes # (Auto) 1.2 x10^3/uL (1.0-4.8) Monocytes # (Auto) 1.0 x10^3/uL (0.0-1.1) Eosinophils # (Auto) 0.0 x10^3/uL (0.0-0.7) Basophils # (Auto) 0.0 x10^3/uL (0.0-0.2) Sodium Level 134 mmol/L (136-145) Potassium Level 5.1 mmol/L (3.5-5.1) Chloride Level 97 mmol/L (98-107) Carbon Dioxide Level 26 mmol/L (21-32) Anion Gap 11 (6-14) Blood Urea Nitrogen 53 mg/dL (7-20) Creatinine 7.9 mg/dL (0.6-1.0) Estimated GFR (Cockcroft-Gault) 6.1 Glucose Level 404 mg/dL (70-99) Calcium Level 7.2 mg/dL (8.5-10.1) Glucose (Fingerstick) 320 mg/dL (70-99) Medications Current Medications Ondansetron HCl (Zofran) 4 mg PRN Q6HRS PRN IV NAUSEA/VOMITING; Start 01/11/18 at 07:00; Stop 01/11/18 at 18:00; Status DC Fentanyl Citrate (Fentanyl 2ml Vial) 25 mcg PRN Q5MIN PRN IV MILD PAIN; Start 01/11/18 at 07:00; Stop 01/12/18 at 06:59; Status UNV Fentanyl Citrate (Fentanyl 2ml Vial) 50 mcg PRN Q5MIN PRN IV MODERATE TO SEVERE PAIN; Start 01/11/18 at 07:00; Stop 01/12/18 at 06:59; Status UNV Morphine Sulfate (Morphine Sulfate) 1 mg PRN Q10MIN PRN IV SEVERE PAIN Last administered on 01/11/18at 12:19; Start 01/11/18 at 07:00; Stop 01/11/18 at 18:00 ; Status DC Ringer's Solution 1,000 ml @ 30 mls/hr Q24H IV ; Start 01/11/18 at 07:00; Stop 01/11/18 at 18:59; Status DC Lidocaine HCl (Xylocaine-Mpf 1% 2ml Vial) 2 ml PRN 1X PRN ID IV START; Start 01/11/18 at 07:00; Stop 01/11/18 at 18:00; Status DC Hydromorphone HCl (Dilaudid) 0.5 mg PRN Q10MIN PRN IV SEV PAIN, Second choice; Start 01/11/18 at 07:00; Stop 01/11/18 at 18:00; Status DC Prochlorperazine Edisylate (Compazine) 5 mg PACU PRN PRN IV NAUSEA, MRX1; Start 01/11/18 at 07:00; Stop 01/11/18 at 18:00; Status DC Cefazolin Sodium/ Dextrose 50 ml @ 100 mls/hr 1X PREOP PRN IV PRIOR TO PROCEDURE; Start 01/11/18 at 06:00; Stop 01/11/18 at 18:00; Status DC Sodium Chloride 1,000 ml @ 75 mls/hr [id number] IV Last administered on at 07:46; Start 01/11/18 at 07:00; Stop 01/11/18 at 16:29; Status DC Lidocaine/Sodium Bicarbonate (Buffered Lidocaine 1%) 6 ml 1X ONCE INJ Last administered on 01/11/18at 08:50; Start 01/11/18 at 07:45; Stop 01/11/18 at 07:48 ; Status DC Lidocaine/Sodium Bicarbonate (Buffered Lidocaine 1%) 3 ml STK-MED ONCE .ROUTE ; Start 01/11/18 at 07:48; Stop 01/11/18 at 07:49; Status DC Insulin Human Lispro (HumaLOG VIAL) 20 unit 1X ONCE SQ Last administered on at 08:21; Start 01/11/18 at 08:30; Stop 01/11/18 at 08:31; Status DC Propofol 20 ml @ As Directed STK-MED ONCE IV ; Start 01/11/18 at 08:27; Stop at 08:28; Status DC Dexamethasone Sodium Phosphate (Decadron) 20 mg STK-MED ONCE .ROUTE ; Start 01/11/18 at 08:27; Stop 01/11/18 at 08:28; Status DC Ondansetron HCl (Zofran) 4 mg STK-MED ONCE .ROUTE ; Start 01/11/18 at 08:27; Stop 01/11/18 at 08:28; Status DC Fentanyl Citrate (Fentanyl 2ml Vial) 100 mcg STK-MED ONCE .ROUTE ; Start at 08:27; Stop 01/11/18 at 08:28; Status DC Succinylcholine Chloride (Anectine) 200 mg STK-MED ONCE .ROUTE ; Start 01/11/18 at 08:28; Stop 01/11/18 at 08:29; Status DC Ephedrine Sulfate (ePHEDrine PF IN SALINE SYRINGE) 50 mg STK-MED ONCE IV ; Start 01/11/18 at 08:29; Stop 01/11/18 at 08:30; Status DC Bupivacaine HCl/ Epinephrine Bitart (Sensorcain-Mpf Epi 0.5%-1:[id number]) 30 ml STK -MED ONCE .ROUTE Last administered on 01/11/18at 11:35; Start 01/11/18 at 09:11 ; Stop 01/11/18 at 09:12; Status DC Isosulfan Blue (Isosulfan Blue) 50 mg STK-MED ONCE SQ ; Start 01/11/18 at 09:11 ; Stop 01/11/18 at 09:12; Status DC Sodium Chloride (Normal Saline Flush) 3 ml QSHIFT PRN IV AFTER MEDS AND BLOOD DRAWS; Start 01/11/18 at 12:15 Sodium Chloride 1,000 ml @ 50 mls/hr Q20H IV Last administered on 01/11/18at 14 :26; Start 01/11/18 at 12:11; Stop 01/12/18 at 08:04; Status DC Acetaminophen/ Hydrocodone Bitart (Lortab 5/325) 1 tab PRN Q4HRS PRN PO MILD PAIN Last administered on 01/12/18at 06:37; Start 01/11/18 at 12:15 Acetaminophen/ Hydrocodone Bitart (Lortab 5/325) 2 tab PRN Q4HRS PRN PO MODERATE PAIN, SEVERE PAIN; Start 01/11/18 at 12:15 Morphine Sulfate (Morphine Sulfate) 1 mg PRN Q1HR PRN IV PAIN Last administered on 01/11/18at 14:24; Start 01/11/18 at 12:15 Ondansetron HCl (Zofran) 4 mg PRN Q6HRS PRN IV NAUESA, 1ST CHOICE; Start at 12:15 Allopurinol (Zyloprim) 100 mg BID PO Last administered on 01/12/18at 07:59; Start 01/11/18 at 21:00 Allopurinol (Zyloprim) 100 mg DAILY PO ; Start 01/12/18 at 09:00; Status UNV Calcium Carbonate/ Glycine (Tums) 500 mg TIDAC PO Last administered on at 06:36; Start 01/11/18 at 16:30 Carvedilol (Coreg) 6.25 mg BIDWMEALS PO Last administered on 01/11/18at 15:56; Start 01/11/18 at 17:00 Cinacalcet (Sensipar) 30 mg DAILY PO Last administered on 01/12/18at 07:59; Start 01/11/18 at 13:00 Diclofenac Sodium (Voltaren) 1 charan PRN QID PRN TP PAIN Last administered on 01/11/18at 22:05; Start 01/11/18 at 12:15 Docusate Sodium (Colace) 100 mg BID PO Last administered on 01/12/18at 07:59; Start 01/11/18 at 21:00 Ferrous Sulfate (Feosol) 325 mg TIDWMEALS PO Last administered on 01/12/18at 07: 59; Start 01/11/18 at 17:00 Non-Formulary Medication (Albuterol Sulfate (Ventolin Hfa Inhaler)) 2 puff QID INH ; Start 01/11/18 at 13:00; Status UNV Calcium Acetate (Phoslo) 667 mg TIDWMEALS PO ; Start 01/11/18 at 17:00; Stop at 17:00; Status DC Diphenhydramine HCl (Benadryl) 25 mg PRN DAILY PRN PO ITCHING; Start 01/11/18 at 12:30 Fluticasone Propionate (Flonase) 2 spray PRN DAILY PRN NS ALLERGIES; Start 01/12/18 at 09:00 Non-Formulary Medication (Fluticasone/ Vilanterol (Breo Ellipta 100-25 Mcg Inh) ) 1 puff DAILY PRN IH daily; Start 01/11/18 at 12:15; Status UNV Insulin Human Lispro (HumaLOG) 15 units BIDACLD SQ ; Start 01/11/18 at 16:30; Stop 01/11/18 at 16:30; Status DC Levothyroxine Sodium (Synthroid) 150 mcg DAILY06 PO Last administered on at 06:36; Start 01/12/18 at 06:00 Albuterol Sulfate (Ventolin Neb Soln) 2.5 mg RTQID NEB Last administered on 01/12/18at 07:05; Start 01/11/18 at 16:00 Budesonide (Pulmicort) 0.5 mg RTBID NEB Last administered on 01/12/18at 07:05; Start 01/11/18 at 20:00 Insulin Human Lispro (HumaLOG VIAL) 6 unit 1X ONCE SQ Last administered on 01/11/18at 13:10; Start 01/11/18 at 13:15; Stop 01/11/18 at 13:17; Status DC Acetaminophen (Tylenol) 650 mg PRN Q6HRS PRN PO FEVER; Start 01/11/18 at 16:30 Ondansetron HCl (Zofran) 4 mg PRN Q6HRS PRN IV NAUSEA/VOMITING; Start 01/11/18 at 16:30 Morphine Sulfate (Morphine Sulfate) 2 mg PRN Q2HR PRN IV MODERATE TO SEVERE PAIN; Start 01/11/18 at 16:30 Tramadol HCl (Ultram) 50 mg PRN Q6HRS PRN PO MILD TO MODERATE PAIN; Start 01/11 at 16:30 Docusate Sodium (Colace) 100 mg PRN DAILY PRN PO CONSTIPATION; Start 01/11/18 at 16:30 Labetalol HCl (Normodyne Iv Push) 20 mg PRN Q2HR PRN IVP HYPERTENSION, SEE COMMENTS; Start 01/11/18 at 16:30 Acetaminophen/ Hydrocodone Bitart (Lortab 5/325) 1 tab PRN Q4HRS PRN PO MODERATE PAIN; Start 01/11/18 at 16:30 Insulin Glargine (Lantus) 15 units QHS SQ Last administered on 01/11/18at 22:06 ; Start 01/11/18 at 21:00; Stop 01/12/18 at 10:30; Status DC Insulin Human Lispro (HumaLOG) 5 units TIDAC SQ Last administered on 01/12/18at 08:02; Start 01/11/18 at 16:30; Stop 01/12/18 at 10:30; Status DC Insulin Human Lispro (HumaLOG) 0-9 UNITS TIDWMEALS SQ Last administered on 01/12at 08:03; Start 01/11/18 at 17:00 Dextrose (Dextrose 50%-Water Syringe) 12.5 gm PRN Q15MIN PRN IV SEE COMMENTS; Start 01/11/18 at 16:30 Insulin Human Lispro (HumaLOG) 20 units 1X ONCE SQ Last administered on at 22:12; Start 11/6/18 at 21:15; Stop 01/11/18 at 21:16; Status DC Sodium Chloride 1,000 ml @ 1,000 mls/hr Q1H PRN IV hypotension; Start 01/12/18 at 08:08; Stop 01/12/18 at 14:07 Sodium Chloride 1,000 ml @ 400 mls/hr Q2H30M PRN IV PATENCY; Start 01/12/18 at 08:08; Stop 01/12/18 at 20:07 Info (PHARMACY MONITORING -- do not chart) 1 each PRN DAILY PRN MC SEE COMMENTS ; Start 01/12/18 at 08:15; Status UNV Info (PHARMACY MONITORING -- do not chart) 1 each PRN DAILY PRN MC SEE COMMENTS ; Start 01/12/18 at 08:15 Lidocaine HCl (Xylocaine-Mpf 2% Vial) 2 ml 1X ONCE INJ Last administered on at 09:00; Start 01/12/18 at 08:30; Stop 01/12/18 at 08:33; Status DC Insulin Glargine (Lantus) 30 units QHS SQ ; Start 01/12/18 at 21:00 Insulin Human Lispro (HumaLOG) 10 units TIDAC SQ ; Start 01/12/18 at 11:30 Active Scripts Active Reported Tums (Calcium Carbonate) 200 Mg Tab.chew 2 Tab PO TIDAC Sensipar (Cinacalcet Hcl) 30 Mg Tablet 30 Mg PO DAILY Breo Ellipta 100-25 Mcg Inh (Fluticasone/Vilanterol) 1 Each Aer.pow.ba 1 Puff IH DAILY PRN Ventolin Hfa Inhaler (Albuterol Sulfate) 18 Gm Hfa.aer.ad 2 Puff INH QID Calcium Acetate 667 Mg Tablet 667 Mg PO TIDWMEALS Flonase Allergy Relief (Fluticasone Propionate) 9.9 Ml [place].susp 2 Sprays NS DAILY PRN Ferrous Sulfate 325 Mg Tablet 325 Mg PO TID Docusate Sodium 100 Mg Capsule 100 Mg PO BID Diphenhydramine Hcl 50 Mg Capsule 25 Mg PO PRN DAILY Humulin R U-500 Kwikpen (Insulin Regular, Human) 500 Unit/1 Ml Insuln.pen 15 Unit SQ BIDACLD Voltaren (Diclofenac Sodium) 100 Gm Gel..gram. 100 Gm TP PRN QID PRN [place] 10-325 Tablet (Acetaminophen/Hydrocodone Bitart) 1 Each Tablet 1 Tab PO PRN Q6HRS PRN Allopurinol 100 Mg Tablet 100 Mg PO DAILY Levothyroxine Sodium 150 Mcg Tablet 150 Mcg PO DAILYAC Carvedilol 6.25 Mg Tablet 6.25 Mg PO BIDWMEALS Allopurinol 100 Mg Tablet 100 Mg PO BID Vitals/I & O Vital Sign - Last 24 Hours 01/11/18 01/11/18 01/11/18 01/11/18 12:40 12:55 13:10 13:25 Temp 98.4 98.1 98.4 98.1 Pulse 87 86 86 86 Resp 16 16 16 16 B/P (MAP) 153/72 154/75 154/75 155/75 Pulse Ox 94 96 96 97 O2 Delivery Nasal Cannula Nasal Cannula Nasal Cannula Nasal Cannula O2 Flow Rate 2 2 2 2 01/11/18 01/11/18 01/11/18 01/11/18 13:40 14:05 14:15 14:24 Temp 97.6 97.6 97.6 97.6 Pulse 86 88 89 Resp 16 20 16 B/P (MAP) 146/66 150/55 (86) 150/55 (86) Pulse Ox 96 98 97 O2 Delivery Nasal Cannula Nasal Cannula Nasal Cannula Room Air O2 Flow Rate 2 2.0 2.0 01/11/18 01/11/18 01/11/18 01/11/18 14:30 14:45 14:50 15:00 Temp 97.6 97.6 97.6 97.6 97.6 97.6 Pulse 86 87 88 Resp 20 18 B/P (MAP) 141/61 (87) 139/52 (81) 136/59 (84) Pulse Ox 97 96 98 O2 Delivery Nasal Cannula Nasal Cannula Nasal Cannula Nasal Cannula O2 Flow Rate 2.0 2.0 2.0 2.0 01/11/18 01/11/18 01/11/18 01/11/18 15:08 15:15 15:45 15:56 Temp 97.6 97.6 97.6 97.6 Pulse 88 90 Resp 18 B/P (MAP) 128/54 (78) 153/57 (89) Pulse Ox 95 97 99 O2 Delivery Nasal Cannula Nasal Cannula Nasal Cannula Room Air O2 Flow Rate 1.2 2.0 2.0 01/11/18 01/11/18 01/11/18 01/11/18 15:56 16:15 19:00 19:27 Temp 97.6 97.8 97.6 97.8 Pulse 88 93 90 Resp 20 18 16 B/P (MAP) 150/55 141/56 (84) 155/77 (103) Pulse Ox 98 97 O2 Delivery Nasal Cannula Nasal Cannula Nasal Cannula O2 Flow Rate 2.0 2.0 2.0 01/11/18 01/11/18 01/11/18 01/11/18 19:39 20:00 23:00 23:33 Temp 97.8 97.8 Pulse 84 Resp 18 16 B/P (MAP) 175/69 (104) Pulse Ox 97 98 97 O2 Delivery Nasal Cannula Nasal Cannula Nasal Cannula Nasal Cannula O2 Flow Rate 2.0 2.0 2.0 2.0 01/12/18 01/12/18 01/12/18 01/12/18 00:40 03:00 06:37 07:00 Temp 98.1 97.9 98.1 97.9 Pulse 82 81 Resp 18 16 18 B/P (MAP) 106/54 (71) 110/46 (67) Pulse Ox 97 99 99 100 O2 Delivery Nasal Cannula Nasal Cannula Nasal Cannula O2 Flow Rate 2.0 2.0 2.0 01/12/18 01/12/18 01/12/18 01/12/18 07:05 08:00 08:00 08:00 Pulse 81 Resp 16 B/P (MAP) 110/46 Pulse Ox 97 O2 Delivery Nasal Cannula Nasal Cannula Nasal Cannula O2 Flow Rate 2.0 2.0 2.0 Intake and Output 01/11/18 01/11/18 01/12/18 15:00 23:00 07:00 Intake Total 50 ml 900 ml Balance 50 ml 900 ml PIO FOSTER MD Jan 12, 2018 12:30
[2018-01-12 13:00] VITALS: BP 87/42
[2018-01-12] MEDS ORDERED: INSULIN GLARGINE 300 UNITS/3 ML INSULN.PEN. SQ SCH (21:00)
--- NOTE | 2018-01-14 17:08 | PATHOLOGY ---
[facility] Accession Number: [id number] . 01 Material submitted: . PART A: FRESH-5:00 MASS RIGHT BREAST PART B: 5:00 MASS ADDITIONAL LATERAL MARGIN RIGHT BREAST PART C: 5:00 MASS DEEP MARGIN RIGHT BREAST PART D: 5:00 SUPERIOR MARGIN RIGHT BREAST PART E: 5:00 MASS INFERIOR MARGIN RIGHT BREAST PART F: FRESH-9:00 MASS RIGHT BREAST . 01 Clinical history: . Right breast CA . 02 Diagnosis: A. "Fresh - 5:00 mass", lumpectomy: - DUCTAL CARCINOMA IN SITU, PAPILLARY/CRIBRIFORM AND SOLID SUBTYPES, INTERMEDIATE NUCLEAR GRADE, TWO FOCI MEASURING 1.0 CM AND 0.8 CM WITH MICROCALCIFICATIONS; MARGINS FREE OF IN SITU CARCINOMA, CLOSEST MARGIN (MEDIAL - RED) 0.5 MM AWAY. - Previous biopsy site changes. - Background proliferative fibrocystic changes including stromal fibrosis, cyst formation, cystic apocrine metaplasia, adenosis, multiple (innumerable) intraductal papillomas (papillomatosis) and foci of florid usual duct hyperplasia with microcalcifications present. - Lobular carcioma in situ, approaching the medial/inferior (red/green) inked surgical margin, margins free of in situ carcinoma. . B. "5:00 mass additional lateral margin", lumpectomy: - Benign breast with proliferative fibrocystic changes including stromal fibrosis, cyst formation, apocrine metaplasia and multiple (innumerable) intraductal papillomas (papillomatosis); no cytologic atypia or malignancy seen. . C. "5:00 mass deep margin", lumpectomy: - Benign breast with fibrocystic changes including stromal fibrosis, cyst formation, columnar cell hyperplasia and cystic apocrine metaplasia; no cytologic atypia or malignancy seen. . D. "5:00 mass superior margin", lumpectomy: - Benign breast with fibrocystic changes including stromal fibrosis, cyst formation, cystic apocrine metaplasia and fibroadenoma measuring 0.3 cm on the slide; no cytologic atypia or malignancy seen. . E. "5:00 mass inferior margin", lumpectomy: - Benign breast with fibrocystic changes including stromal fibrosis, cyst formation, fibroadenomatoid change, florid usual duct hyperplasia and multiple intraductal papillomas (papillomatosis); no cytologic atypia or malignancy seen. . F. "Fresh - 9:00 mass", lumpectomy: - Intraductal papilloma with previous biopsy site changes. - Background proliferative fibrocystic changes including stromal fibrosis, cyst formation, cystic apocrine metaplasia, adenosis, florid usual duct hyperplasia and multiple (innumerable) intraductal papillomas (papillomatosis); no cytologic atypia or malignancy seen. (CLW/db; 01/14/2018) LBQ/01/14/2018 . 02 Comment: CAP DCIS BREAST SYNOPTIC: . Procedure ___ Excision (less than total mastectomy) . Specimen Laterality ___ Right . Size (Extent) of DCIS Estimated size (extent) of DCIS (greatest dimension using gross and microscopic evaluation): At least 10 mm . Histologic Type ___ Ductal carcinoma in situ . Nuclear Grade ___ Grade II (intermediate) . Necrosis ___ Not identified . Margins ___ Uninvolved by DCIS . Distance from closest margin (millimeters): 0.5 mm Specify closest margin: Medial - red . Regional Lymph Nodes ___ No lymph nodes submitted or found . Pathologic Stage Classification (pTNM, AJCC 8th Edition) . Primary Tumor (pT) ___ pTis (DCIS): Ductal carcinoma in situ . Regional Lymph Nodes (pN) (choose a category if lymph nodes received with the specimen; immunohistochemistry and/or molecular studies are not required) . Category (pN) ___ pNX:Regional lymph nodes cannot be assessed (eg, not removed for pathological study or previously removed) . . The patient has a history of "ductal carcinoma in situ, papillary/cribriform type, intermediate grade and proliferative fibrocystic changes with focal mild to moderate ductal epithelial hyperplasia" from a right breast mass 5:00 needle biopsy and "intraductal papilloma, proliferative fibrocystic changes with the following components: Florid ductal epithelial hyperplasia and intraductal papillomatosis, stromal fibrosis, duct ectasia, cystic change and apocrine metaplasia, focal" from a right breast mass 9:00 needle biopsy ([id number]). (CLW/db; 01/14/2018) . 02 Electronically signed: . Allyn Lindsay MD, Pathologist NPI- [id number] . 01 Gross description: . A. The specimen is received in formalin, labeled "Jazmine Eaton, 5:00 mass" and consists of an oriented 60 g breast lumpectomy specimen with a long stitch lateral and short stitch superficial. It measures 8.8 cm A-P, 6.2 cm S-I, 1.6 cm L-M and inked as follows: superior-blue, inferior-green, medial-red, lateral-yellow, anterior-orange, and posterior-black. Protruding from the superficial aspect is a metal localization wire. The specimen is sectioned from anterior to posterior revealing 2 distinct white-clemens firm masses. The first measures 2.8 x 0.5 x 0.5 cm that extends from the margins as follows: Greater than 2 cm anterior, greater than 4 cm posterior, 0.4 cm medial, 0.6 cm lateral, 0.4 cm superior, and 3.0 cm inferior. The second mass is 1.5 cm posterior from the first described mass and measures 0.9 x 0.5 x 0.5 cm and extends from the margins as follows: Less than 0.1 cm medial, 1.0 cm lateral, 0.7 cm superior, 3.0 cm inferior, greater than 3 cm posterior, and greater than 5 cm anterior. Also present are extensive previous biopsy changes with hemorrhagic filled cavities which measure between 0.3 cm and 1.5 cm. These biopsy changes extends from the first described mass posterior towards the second described mass and moving even further posterior from the second described mass. The remainder of the parenchyma consists of yellow adipose tissue with minimal fibrous streaks (less than 5%) and no additional masses or lesions. The specimen was obtained at 11:05 AM on 01/11/18 and placed in formalin at 11:28 AM. The cold ischemic time is 23 minutes and the total formalin fixation time is greater than 6 hours but less than 72 hours. Atmospheric Chemist sections are submitted as follows: . A1-A2: Anterior margin, perpendicular A3-A5: First described mass A6-A10: Second described mass with adjacent previous biopsy changes A11-A13: Entire slice anterior to first described mass A14-A16: Entire slice posterior to first described mass A17-A19: Entire slice anterior to second described mass A20-A22: Entire slice posterior to second described mass A23: Posterior, perpendicular . B. The specimen is received in formalin, labeled "Jazmine Eaton, 5:00 mass additional lateral margin" and consists of a 5 g one oriented segment of yellow adipose tissue measuring 5.5 x 2.8 x 1.0 cm. It is entirely inked yellow and sectioned to reveal no gross lesions. The specimen is entirely submitted in B1-B6. . C. The specimen is received in formalin, labeled "Jazmine Eaton, 5:00 mass deep margin" and consists of an unoriented 6 g segment of yellow fibroadipose tissue measuring 4.8 x 3.3 x 0.6 cm. It is inked black and sectioned to reveal no gross lesions. The specimen is entirely submitted in C1-C7. . D. The specimen is received in formalin, labeled "Jazmine Eaton, 5:00 mass superior margin" and consists of an unoriented 5 g segment of yellow fibroadipose tissue measuring 3.6 x 3.0 x 0.8 cm. The specimen is inked blue and sectioned to reveal scattered dense fibrous streaks and no gross lesions. It is entirely submitted in D1-D5. . E. The specimen is received in formalin, labeled "Jazmine Eaton, 5:00 mass inferior margin" and consists of an unoriented 4 g segment of yellow fibroadipose tissue measuring 7.3 x 2.0 x 0.9 cm. It is inked green and sectioned to reveal scattered dense fibrous streaks and no gross lesions. It is entirely submitted in E1-E6. . F. The specimen is received in formalin, labeled "Jazmine Eaton, 9:00 mass" and consists of an unoriented 13 g breast lumpectomy specimen measuring 5.7 x 4.2 x 1.0 cm. Protruding from 2 separate aspects is a single metal localization wire (one aspect is a longer portion of wire protruding). The long localization wire aspect is inked orange and the short wire aspect is inked red. The remainder of the specimen is inked black. It is serially sectioned to reveal extensive dense fibrous tissue measuring approximately 3.1 x 2.7 x 0.8 cm. Present within the fibrous area are multiple cystic structures ranging from 0.1-0.3 cm. Adjacent to the dense fibrous tissue is hemorrhage/possible previous biopsy change which measures 0.8 x 0.5 cm. No distinct mass is identified. The specimen was obtained at 11:29 AM on 01/11/18 and placed in formalin at 11:43 AM. The cold ischemic time is 14 minutes and the total formalin fixation time is greater than 6 hours but less than 72 hours. The specimen is entirely submitted in F1-F11. (SDY; 01/12/2018) SYU/SYU . 02 Pathologist provided ICD-10: D05.11, N60.11, N60.31, N60.81, N60.01 . 02 CPT . 101021, 655328, [id number], 196661, [id number], [id number] Specimen Comment: A courtesy copy of this report has been sent to Specimen Comment: [phone], . Specimen Comment: Report sent to / DR MORRISSEY Performed at: [facility] [address], [place] [id number] MD Montrell Valles MD Phone: [phone] [facility]: [facility] [address] [place], [place] [id number] MD Jamaal Powell MD Phone: [phone]
== END 2018-01-12 15:00 | disposition home or self-care (01) ==
LOC: SURG 06:53 → 4 NORTH 12:11
PROVIDERS: ADMIT Surgery; ATTEND Surgery
DX: D05.11 Intraductal carcinoma in situ of right breast (principal); E11.22 Type 2 diabetes mellitus with diabetic chronic kidney disease; E11.65 Type 2 diabetes mellitus with hyperglycemia; E66.01 Morbid (severe) obesity due to excess calories; E89.0 Postprocedural hypothyroidism; I12.0 Hypertensive chronic kidney disease with stage 5 chronic kidney disease or end stage renal disease; I25.10 Atherosclerotic heart disease of native coronary artery without angina pectoris; J44.9 Chronic obstructive pulmonary disease, unspecified; N18.6 End stage renal disease; Z79.4 Long term (current) use of insulin; Z82.49 Family history of ischemic heart disease and other diseases of the circulatory system; Z95.1 Presence of aortocoronary bypass graft; Z99.2 Dependence on renal dialysis; Z79.899 Other long term (current) drug therapy; Z88.8 Allergy status to other drugs, medicaments and biological substances
CPT/HCPCS: 19125; 19281; 19282; 19301; 36415; 76098; 80048; 82962; 85025; 88307; 94640; 96372; 96374; A7015; G0378; G0379; J0330; J0690; J1100; J1815; J2001; J2270; J2405; J2704; J3010; J3490; J7613; J7626; Q9968

== ENCOUNTER 2018-01-24 16:30 | Emergency (ER) | payer MEDICARE, OTHER ==
[~2018-01-24] VITALS: Ht 165.1 cm; Wt 106.1 kg
[2018-01-24 18:25] VITALS: BP 137/62
--- NOTE | 2018-01-24 18:26 | PHYS DOC ---
Past Medical History Past Medical History: Diabetes-Type II, High Cholesterol, Hypertension, Hypothyroid, Renal Failure Past Surgical History: Cholecystectomy, Coronary Bypass Surgery, Pacemaker, Other Additional Past Surgical Histo: R breast surgery, fistula L FA,thyroid removed Alcohol Use: None Drug Use: None Adult General Chief Complaint Chief Complaint: BREAST PROBLEM HPI HPI Patient is a 67 year old female who presents to be evaluated for bleeding postbiopsy. Patient states she had right breast biopsy done on01/11/2018, she states she noted bleeding from one of the incision sites today. Patient denies any fever. Denies any pus draining from the area. Review of Systems Review of Systems Constitutional: Denies fever or chills [] Musculoskeletal: Denies back pain or joint pain [] Integument: Right breast bleeding. Neurologic: Denies headache, focal weakness or sensory changes [] All other systems were reviewed and found to be within normal limits, except as documented in this note. Allergies Allergies Allergies Coded Allergies Type Severity Reaction Last Updated Verified meperidine Allergy Intermediate 01/24/18 Yes Physical Exam Physical Exam Constitutional: Well developed, well nourished, no acute distress, non-toxic appearance. [] Skin: Warm, dry, right breast with incision site one on the ventral aspect of the breast and another one underneath the breast. The one on the ventral aspect of the breast is well approximated, with steri strips. No bleeding. The one on the dorsal aspect of the breast has one steri strip. The laceration site is well approximated, there is a tiny area that appears to be the source of bleeding. Likely a seroma. No signs of infection. Steri-Strips applied to the area. Back: No tenderness, no CVA tenderness. [] Extremities: No tenderness, no cyanosis, no clubbing, ROM intact, no edema. [] Neurologic: Alert and oriented X 3, normal motor function, normal sensory function, no focal deficits noted. [] Psychologic: Affect normal, judgement normal, mood normal. [] Current Patient Data Vital Signs Vital Signs Date Time Temp Pulse Resp B/P (MAP) Pulse Ox O2 Delivery O2 Flow Rate FiO2 01/24/18 17:35 98.1 97 20 144/69 (94) 97 Room Air 98.1 EKG EKG [] Radiology/Procedures Radiology/Procedures [] Course & Med Decision Making Course & Med Decision Making Pertinent Labs and Imaging studies reviewed. (See chart for details) This is a 67-year-old female patient presenting to the ED today complaining of bleeding to the right breast post biopsy done on 01/11/[address] Degroot. No active bleeding in the ED likely a seroma. The area was covered with Steri- Strips. Spoke with Dr. Degroot, patient to f/u next week. Dragon Disclaimer Dragon Disclaimer This electronic medical record was generated, in whole or in part, using a voice recognition dictation system. Departure Departure Impression: Primary Impression: Bleeding from breast Disposition: 01 HOME, SELF-CARE Condition: STABLE Referrals: NEGRO MORRISSEY (PCP) NEVA DEGROOT MD follow up this week Patient Instructions: Breast Biopsy, Care After Additional Instructions: Your breast was evaluated. There is no signs of infection. Keep the area clean and dry. Apply pressure to the area if it starts bleeding. Follow-up with Dr. Degroot in the course of this week or next week. [facility] Jan 24, 2018 18:26
== END 2018-01-24 18:35 | disposition home or self-care (01) ==
LOC: ER 16:30
DX: N64.59 Other signs and symptoms in breast (principal); E78.00 Pure hypercholesterolemia, unspecified; E03.9 Hypothyroidism, unspecified; I12.9 Hypertensive chronic kidney disease with stage 1 through stage 4 chronic kidney disease, or unspecified chronic kidney disease; N18.9 Chronic kidney disease, unspecified; E11.22 Type 2 diabetes mellitus with diabetic chronic kidney disease; Z95.1 Presence of aortocoronary bypass graft; Z95.0 Presence of cardiac pacemaker; Z98.890 Other specified postprocedural states; Z88.8 Allergy status to other drugs, medicaments and biological substances
CPT/HCPCS: 99284

== ENCOUNTER 2018-04-14 06:29 | Observation (INO) | payer MEDICARE, OTHER ==
[2018-04-14] VITALS (11 sets, daily range): BP systolic 112–138; BP diastolic 45–70
[~2018-04-14] VITALS: Ht 165.1 cm; Wt 122.0 kg
[~2018-04-14 06:29] MED LIST changes: +AMOX1TAB61 PO; +ASPI-630 PO; +ATOR20TA PO; +CARV6.2511 PO; -CARV6.252 PO; +LOSA-73 PO; +PANT20TA2 PO
[2018-04-14] MEDS ORDERED: PROCHLORPERAZINE 10 MG/2 ML VIAL. IV PRN (07:00)
[2018-04-14] MEDS ORDERED: HYDROmorphone 2 MG/ML VIAL IV PRN (07:00)
[2018-04-14] MEDS ORDERED: IV RINGERS,LACTATED 1000ML 1,000 ML IV SCH (07:00)
[2018-04-14] MEDS ORDERED: ONDANSETRON PF 4 MG/2 ML VIAL. IV PRN ×2 (07:00→08:45)
[2018-04-14] MEDS ORDERED: IPRATRPIUM/ALBUTEROL 0.5/2.5MG 3 ML NEBU. NEB ONE (07:00)
[2018-04-14] MEDS ORDERED: fentaNYL PF VIAL 100 MCG/2 ML VIAL IV PRN (07:00)
[2018-04-14] MEDS ORDERED: LIDOCAINE 1% PF 2 ML VIAL. ID PRN (07:00)
[2018-04-14] MEDS ORDERED: LIDOCAINE 1%/EPI 1:100,000 20 ML VIAL. ONE (07:13)
[2018-04-14] MEDS ORDERED: BUPIVAC MPF-EPI 0.5%-1:200000 30 ML VIAL. ONE (07:13)
[2018-04-14] MEDS ORDERED: SUCCINYLCHOLINE 200 MG/10 ML VIAL. ONE (07:16)
[2018-04-14] MEDS: IV NORMAL SALINE 1000ML BAG 1,000 ML IV SCH (07:16)
[2018-04-14] MEDS ORDERED: LIDOCAINE 2% PF Vial for OR 5 ML VIAL. ONE (07:21)
[2018-04-14] MEDS ORDERED: DEXAMETHASONE SOD PHOS 20 MG/5 ML VIAL. ONE (07:21)
[2018-04-14] MEDS ORDERED: PROPOFOL 20 ML IV ONE (07:21)
[2018-04-14] MEDS ORDERED: ONDANSETRON PF 4 MG/2 ML VIAL. ONE (07:21)
[2018-04-14] MEDS ORDERED: fentaNYL PF VIAL 100 MCG/2 ML VIAL ONE (07:22)
[2018-04-14] MEDS ORDERED: INSULIN LISPRO 100 UNIT/ML 3ML VIAL. SQ ONE ×3 (07:30→10:30)
[2018-04-14 07:40] LABS: CALCIUM 8.9 mg/dL (8.5-10.1); CREATININE 4.9 mg/dL (0.6-1.0); GFR 10.7; POTASSIUM 4.1 mmol/L (3.5-5.1)
[2018-04-14] MEDS ORDERED: SEVOFLURANE 31 TO 60 MINUTES. IH ONE (08:07)
--- NOTE | 2018-04-14 08:40 | PDOC4 ---
Operative Note Operative Note Operative Note: Preoperative Diagnosis: Right breast abscess Postoperative Diagnosis: Same Procedure: Incision and drainage with washout of right breast abscess Surgeon: Zane Anesthesia: Gen. EBL: 25 mL Specimen: None Drains: None Complications: None Indication: The patient is a 67-year-old female with multiple medical problems who previously underwent an excisional biopsy in addition to a lumpectomy due to ductal carcinoma in situ. She has developed problems related to postoperative infections. The plan is to proceed to the operating room for wider incision and drainage and washout of the affected area. The risks of surgery were discussed with the patient which include bleeding, infection, recurrence, pain, scar tissue, anesthetic risk, potential need for additional surgery or procedure. She understands and would like to proceed. Description: The patient was taken to the operating room and placed supine on the operating table. Gen. anesthesia was performed. The right breast was prepped with Betadine and draped in a standard surgical manner. With a scalpel the prior scar at the 3 o'clock position extending from the areola was fully excised. There was a significant amount of purulent fluid which was encountered and suctioned. A combination of blunt finger and sharp dissection was used to free up any loculations and defined the full extent of the abscess cavity. The abscess cavity was fairly deep and seemed to extend back to the original lumpectomy site. Several bleeding spots were controlled with cautery. The entire wound base was then copiously irrigated using the Pulsavac device. Upon completion the involved abscess cavity appeared fully drained with a healthy granulation base. The wound was packed with a sterile Kerlix gauze and a dressing was applied. The patient tolerated the procedure and was sent to the recovery room in stable condition. At the end of the case all counts were correct. NEVA MCMANUS MD Apr 14, 2018 08:40
[2018-04-14] MEDS ORDERED: HYDROcodone/APAP 5/325MG 1 TAB TABLET PO PRN (08:45)
[2018-04-14] MEDS ORDERED: 0.9 % SODIUM CHLORIDE 10 ML DISP.SYRIN. IV PRN (08:45)
[2018-04-14] MEDS ORDERED: NON FORMULARY ITEM (Fluticasone/Vilanterol (Breo Ellipta 100-25 Mcg Inh) 1 PUFF) IH PRN (08:45)
[2018-04-14] MEDS ORDERED: DICLOFENAC SODIUM 1% TOPICAL GEL 100GM TUBE. TP PRN (08:45)
[2018-04-14] MEDS ORDERED: NON FORMULARY ITEM (Albuterol Sulfate (Ventolin Hfa Inhaler) 2 PUFF) INH SCH (09:00)
[2018-04-14] MEDS ORDERED: AMOXICILLIN/K CLAV 875/125MG TABLET. PO SCH (09:00)
[2018-04-14] MEDS: ASPIRIN CHEWABLE 81 MG TABLET. PO SCH (09:00)
[2018-04-14] MEDS ORDERED: ALLOPURINOL 100 MG TABLET. PO SCH (09:00)
[2018-04-14] MEDS ORDERED: LOSARTAN POTASSIUM 50 MG TABLET. PO SCH (09:00)
[2018-04-14] MEDS ORDERED: CINACALCET HCL 30 MG TABLET PO SCH (09:00)
[2018-04-14] MEDS ORDERED: LOSARTAN POTASSIUM 25 MG TABLET. PO SCH (09:14)
[2018-04-14] MEDS: fentaNYL PF VIAL 100 MCG/2 ML VIAL IV PRN ×2 (09:14→09:31)
[2018-04-14] MEDS: MORPHINE SULFATE 4 MG/ML VIAL. IV PRN ×2 (09:45→09:58)
[2018-04-14] MEDS: LEVOTHYROXINE 150 MCG TABLET PO SCH (10:30)
--- NOTE | 2018-04-14 11:00 | NUR ---
This patient arrived via gurney, was assisted to the bed, denies pain at this time, dressing is CDI, frequent vitals are started. Family at bedside, call light within reach of patient, this nurse will continue to monitor.
[2018-04-14] MEDS: BUDESONIDE 0.5 MG/2 ML NEBU. NEB SCH ×2 (11:18→20:04)
[2018-04-14] MEDS: ALBUTEROL SULFATE 2.5 MG/3 ML NEBU. NEB SCH ×3 (11:18→20:00)
[2018-04-14] MEDS: PANTOPRAZOLE 40 MG TABLET.DR. PO SCH (11:30)
[2018-04-14] MEDS ORDERED: FERROUS SULFATE 325 MG TABLET. PO SCH (12:00)
[2018-04-14] MEDS: DOCUSATE SODIUM 100 MG CAPSULE. PO SCH ×2 (12:41→21:03)
[2018-04-14] MEDS: CARVEDILOL 6.25 MG TABLET. PO SCH ×2 (12:43→21:03)
[2018-04-14] MEDS: HYDROcodone/APAP 5/325MG 1 TAB TABLET PO PRN ×2 (12:46→17:56)
[2018-04-14] MEDS: INSULIN LISPRO 300 UNITS/3 ML INSULN.PEN. SQ SCH ×2 (12:52→18:13)
[2018-04-14] MEDS: CALCIUM CARBONATE 500 MG TAB.CHEW PO SCH ×2 (12:52→17:56)
--- NOTE | 2018-04-14 14:00 | NUR ---
This nurse called for one time dose of MS 2mg, after wound vac placed, orders received. During rounds Dr. Parsons spoke with daughter about home medication for DM management, that medication is not provided here. Discussed with daughter bringing medication from home, daughter stated, "I am ok with the POC you guys have sent for her at this time." MD notified. This nurse will continue to monitor.
[2018-04-14] MEDS ORDERED: MORPHINE SULFATE 4 MG/ML VIAL. IV ONE (14:15)
--- NOTE | 2018-04-14 14:30 | NUR ---
Wound care: Patient seen per wound care consult. Dr. Degroot ordered for wound care to see patient regarding abscess to right breast that he I/D'd today. Orders to place wound vac at 125mmHg continuous. Dressing removed and wound cleansed, assessed, measured, and pictured. Skin prepped and one piece of lemus foam used an good seal maintained at 125mmHg continuously. No other wounds noted upon complete head to toe assessment. Spoke with patient and patient's daughter and they wish to follow up in wound clinic after discharge. Will submit home vac application today so patient can be discharged with vac. Will await for approval hopefully by tomorrow afternoon. Patient and daughter agreeable to POC and both verbalized understanding. Bed lowered and call light in reach.
--- NOTE | 2018-04-14 14:59 | PDOC2 ---
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 She has developed problems related to postoperative infections. She was admitted by surgery and underwent Incision and drainage with washout of right breast abscess. nio acute issues or complaints post op. patient a diabetic and on U500 insulin 15 units TID. patient's family did not bring u500 insulin and we do not have this on formulary. patient on HD and will get dialysis tomorrow. Past Surgical History Past Surgical History: CABG Family History Family History: Hypertension Social History ALCOHOL: none Lives: with Family Domestic Violence: Neg Current Medications Current Medications Current Medications Cefazolin Sodium/ Dextrose 50 ml @ 100 mls/hr 1X PREOP PRN IV PRIOR TO PROCEDURE; Start 04/14/18 at 06:00; Stop 04/14/18 at 18:00 Ondansetron HCl (Zofran) 4 mg PRN Q6HRS PRN IV NAUSEA/VOMITING; Start 04/14/18 at 07:00; Stop 04/15/18 at 06:59 Fentanyl Citrate (Fentanyl 2ml Vial) 25 mcg PRN Q5MIN PRN IV MILD PAIN; Start 04/14/18 at 07:00; Stop 04/15/18 at 06:59 Fentanyl Citrate (Fentanyl 2ml Vial) 50 mcg PRN Q5MIN PRN IV MODERATE TO SEVERE PAIN Last administered on 04/14/18at 09:31; Start 04/14/18 at 07:00; Stop at 06:59 Morphine Sulfate (Morphine Sulfate) 1 mg PRN Q10MIN PRN IV SEVERE PAIN Last administered on 04/14/18at 09:58; Start 04/14/18 at 07:00; Stop 04/15/18 at 06:59 Ringer's Solution 1,000 ml @ 30 mls/hr Q24H IV ; Start 04/14/18 at 07:00; Stop 04/14/18 at 18:59 Lidocaine HCl (Xylocaine-Mpf 1% 2ml Vial) 2 ml PRN 1X PRN ID PRIOR TO IV START ; Start 04/14/18 at 07:00; Stop 04/15/18 at 06:59 Hydromorphone HCl (Dilaudid) 0.5 mg PRN Q10MIN PRN IV SEV PAIN, Second choice; Start 04/14/18 at 07:00; Stop 04/15/18 at 06:59 Prochlorperazine Edisylate (Compazine) 5 mg PACU PRN PRN IV NAUSEA, MRX1; Start 04/14/18 at 07:00; Stop 04/15/18 at 06:59 Albuterol/ Ipratropium (Duoneb) 3 ml 1X ONCE NEB Last administered on at 07:27; Start 04/14/18 at 07:00; Stop 04/14/18 at 07:01; Status DC Sodium Chloride 1,000 ml @ 30 mls/hr Q24H IV Last administered on 04/14/18at 07: 16; Start 04/14/18 at 07:15 Bupivacaine HCl/ Epinephrine Bitart (Sensorcain-Mpf Epi 0.5%-1:316842) 30 ml STK -MED ONCE .ROUTE ; Start 04/14/18 at 07:13; Stop 04/14/18 at 07:15; Status DC Lidocaine/ Epinephrine (LIDOCAINE 1%-EPI 1:100,000 Multi-Dose) 20 ml STK-MED ONCE .ROUTE ; Start 04/14/18 at 07:13; Stop 04/14/18 at 07:16; Status DC Succinylcholine Chloride (Anectine) 200 mg STK-MED ONCE .ROUTE ; Start 04/14/18 at 07:16; Stop 04/14/18 at 07:18; Status DC Insulin Human Lispro (HumaLOG VIAL) 6 unit 1X ONCE SQ Last administered on 04/14at 07:38; Start 04/14/18 at 07:30; Stop 04/14/18 at 07:31; Status DC Propofol 20 ml @ As Directed STK-MED ONCE IV ; Start 04/14/18 at 07:21; Stop 04/14 at 07:23; Status DC Lidocaine HCl (Lidocaine Pf 2% Vial) 5 ml STK-MED ONCE .ROUTE ; Start 04/14/18 at 07:21; Stop 04/14/18 at 07:23; Status DC Dexamethasone Sodium Phosphate (Decadron) 20 mg STK-MED ONCE .ROUTE ; Start 04/14 at 07:21; Stop 04/14/18 at 07:23; Status DC Ondansetron HCl (Zofran) 4 mg STK-MED ONCE .ROUTE ; Start 04/14/18 at 07:21; Stop 04/14/18 at 07:23; Status DC Fentanyl Citrate (Fentanyl 2ml Vial) 100 mcg STK-MED ONCE .ROUTE ; Start at 07:22; Stop 04/14/18 at 07:24; Status DC Ephedrine Sulfate (Akovaz) 50 mg STK-MED ONCE .ROUTE ; Start 04/14/18 at 07:52; Stop 04/14/18 at 07:54; Status DC Sevoflurane (Ultane) 30 ml STK-MED ONCE IH ; Start 04/14/18 at 08:07; Stop at 08:09; Status DC Sodium Chloride (Normal Saline Flush) 3 ml QSHIFT PRN IV AFTER MEDS AND BLOOD DRAWS; Start 04/14/18 at 08:45 Acetaminophen/ Hydrocodone Bitart (Lortab 5/325) 1 tab PRN Q4HRS PRN PO MILD PAIN Last administered on 04/14/18at 12:46; Start 04/14/18 at 08:45 Acetaminophen/ Hydrocodone Bitart (Lortab 5/325) 2 tab PRN Q4HRS PRN PO MODERATE PAIN, SEVERE PAIN; Start 04/14/18 at 08:45 Ondansetron HCl (Zofran) 4 mg PRN Q6HRS PRN IV NAUESA, 1ST CHOICE; Start at 08:45 Allopurinol (Zyloprim) 100 mg DAILY PO ; Start 04/14/18 at 09:00 Amoxicillin/ Clavulanate Potassium (Augmentin 875/ 125mg) 1 tab BID PO Last administered on 04/14/18at 12:40; Start 04/14/18 at 09:00 Aspirin (Children'S Aspirin) 81 mg DAILY PO ; Start 04/14/18 at 09:00 Atorvastatin Calcium (Lipitor) 20 mg HS PO ; Start 04/14/18 at 21:00 Calcium Carbonate/ Glycine (Tums) 500 mg TIDAC PO Last administered on 12:52; Start 04/14/18 at 11:30 Carvedilol (Coreg) 6.25 mg BIDWMEALS PO Last administered on 04/14/18at 12:43; Start 04/14/18 at 09:15 Cinacalcet (Sensipar) 30 mg DAILY PO ; Start 04/14/18 at 09:00 Diclofenac Sodium (Voltaren) 100 charan PRN QID PRN TP PAIN; Start 04/14/18 at 08: 45 Docusate Sodium (Colace) 100 mg BID PO Last administered on 04/14/18 12:41; Start 04/14/18 at 09:00 Ferrous Sulfate (Feosol) 325 mg TIDWMEALS PO Last administered on 04/14/18 12: 52; Start 04/14/18 at 12:00 Losartan Potassium (Cozaar) 25 mg DAILY PO ; Start 04/14/18 at 09:00; Stop at 09:14; Status DC Non-Formulary Medication (Albuterol Sulfate (Ventolin Hfa Inhaler)) 2 puff QID INH ; Start 04/14/18 at 09:00; Status UNV Non-Formulary Medication (Fluticasone/ Vilanterol (Breo Ellipta 100-25 Mcg Inh) ) 1 puff DAILY PRN IH daily; Start 04/14/18 at 08:45; Status UNV Insulin Human Lispro (HumaLOG) 10 units TIDWMEALS SQ Last administered on at 12:52; Start 04/14/18 at 12:00 Levothyroxine Sodium (Synthroid) 150 mcg DAILY06 PO ; Start 04/14/18 at 10:30 Pantoprazole Sodium (Protonix) 40 mg DAILYAC PO ; Start 04/14/18 at 11:30 Insulin Human Lispro (HumaLOG VIAL) 4 unit 1X ONCE SQ Last administered on 04/14at 09:17; Start 04/14/18 at 09:00; Stop 04/14/18 at 09:14; Status DC Losartan Potassium (Cozaar) 25 mg DAILY PO ; Start 04/14/18 at 09:14 Albuterol Sulfate (Ventolin Neb Soln) 2.5 mg RTQID NEB Last administered on 2/7 /19at 11:18; Start 04/14/18 at 12:00 Budesonide (Pulmicort) 0.5 mg RTBID NEB Last administered on 04/14/18at 11:18; Start 04/14/18 at 10:00 Insulin Human Lispro (HumaLOG VIAL) 10 unit 1X ONCE SQ Last administered on 04/14/18at 10:29; Start 04/14/18 at 10:30; Stop 04/14/18 at 10:31; Status DC Morphine Sulfate (Morphine Sulfate) 2 mg 1X ONCE IV Last administered on at 14:24; Start 04/14/18 at 14:15; Stop 04/14/18 at 14:19; Status DC Active Scripts Active Reported Augmentin 875-125 Tablet (Amoxicillin/Potassium Clav) 1 Each Tablet 1 Tab PO BID Protonix (Pantoprazole Sodium) 20 Mg Tablet.dr 40 Mg PO DAILY Lipitor (Atorvastatin Calcium) 20 Mg Tablet 20 Mg PO HS Aspirin 81 Mg Tab.chew 1 Tab PO DAILY Losartan Potassium 50 Mg Tablet 25 Mg PO DAILY Tums (Calcium Carbonate) 200 Mg Tab.chew 2 Tab PO TIDAC Sensipar (Cinacalcet Hcl) 30 Mg Tablet 30 Mg PO DAILY Breo Ellipta 100-25 Mcg Inh (Fluticasone/Vilanterol) 1 Each Aer.pow.ba 1 Puff IH DAILY PRN Ventolin Hfa Inhaler (Albuterol Sulfate) 18 Gm Hfa.aer.ad 2 Puff INH QID Ferrous Sulfate 325 Mg Tablet 325 Mg PO TID Docusate Sodium 100 Mg Capsule 100 Mg PO BID Humulin R U-500 Kwikpen (Insulin Regular, Human) 500 Unit/1 Ml Insuln.pen 10 Unit SQ TIDAC U-500 Voltaren (Diclofenac Sodium) 100 Gm Gel..gram. 100 Gm TP PRN QID PRN [place] 10-325 Tablet (Acetaminophen/Hydrocodone Bitart) 1 Each Tablet 1 Tab PO PRN Q6HRS PRN Allopurinol 100 Mg Tablet 100 Mg PO DAILY Levothyroxine Sodium 150 Mcg Tablet 150 Mcg PO DAILYAC Carvedilol (Carvedilol) 6.25 Mg Tablet 6.25 Mg PO BIDWMEALS Allergies Allergies: Coded Allergies: meperidine (Verified Allergy, Intermediate, 2/5/19) ROS Review of System CONSTITUTIONAL: No fever or chills EYES: No recent changes SKIN: No rash or itching CARDIOVASCULAR: No chest pain, syncope, palpitations, or edema RESPIRATORY: No SOB or cough GASTROINTESTINAL: No nausea, vomiting or abdominal pain NEUROLOGICAL: No headaches or weakness ENDOCRINE: No cold or heat intolerance GENITOURINARY: No urgency or frequency of urination MUSCULOSKELETAL: No back pain or joint pain LYMPHATICS: No enlarged lymph nodes PSYCHIATRIC: No anxiety or depression Physical Exam Physical Exam GENERAL: No apparent distress. Alert and oriented. HEENT: Head normocephalic, atraumatic. NECK: Supple LUNGS: Clear to auscultation. HEART: RRR, S1, S2 present, pulses intact ABDOMEN: Soft, positive bowel sounds. EXTREMITIES: No cyanosis or edema. NEUROLOGIC: Normal speech, normal tone PSYCHIATRIC: Normal affect, normal mood. SKIN: No ulceration. Vitals VITALS Vital Signs Date Time Temp Pulse Resp B/P (MAP) Pulse Ox O2 Delivery O2 Flow Rate FiO2 04/14/18 14:24 Nasal Cannula 2.0 04/14/18 12:46 97 04/14/18 12:43 77 138/63 04/14/18 10:50 97.9 14 97.9 Labs Labs Laboratory Tests Test 04/14/18 06:55 04/14/18 07:20 04/14/18 08:45 04/14/18 10:19 Sodium Level 138 mmol/L (136-145) Potassium Level 4.1 mmol/L (3.5-5.1) Chloride Level 99 mmol/L (98-107) Carbon Dioxide Level 26 mmol/L (21-32) Anion Gap 13 (6-14) Blood Urea Nitrogen 24 mg/dL (7-20) Creatinine 4.9 mg/dL (0.6-1.0) Estimated GFR (Cockcroft-Gault) 10.7 Glucose Level 342 mg/dL (70-99) Calcium Level 8.9 mg/dL (8.5-10.1) Glucose (Fingerstick) 282 mg/dL (70-99) 297 mg/dL (70-99) 311 mg/dL (70-99) Test 04/14/18 11:47 Glucose (Fingerstick) 284 mg/dL (70-99) Laboratory Tests Test 04/14/18 06:55 04/14/18 07:20 04/14/18 08:45 04/14/18 10:19 Sodium Level 138 mmol/L (136-145) Potassium Level 4.1 mmol/L (3.5-5.1) Chloride Level 99 mmol/L (98-107) Carbon Dioxide Level 26 mmol/L (21-32) Anion Gap 13 (6-14) Blood Urea Nitrogen 24 mg/dL (7-20) Creatinine 4.9 mg/dL (0.6-1.0) Estimated GFR (Cockcroft-Gault) 10.7 Glucose Level 342 mg/dL (70-99) Calcium Level 8.9 mg/dL (8.5-10.1) Glucose (Fingerstick) 282 mg/dL (70-99) 297 mg/dL (70-99) 311 mg/dL (70-99) Test 04/14/18 11:47 Glucose (Fingerstick) 284 mg/dL (70-99) Assessment/Plan Assessment/Plan ASSESSMENT: Right Breast Abscess, s/p I and D 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 have requested patient's daughter bring U500 insulin to hospital as we do not have on formulary in pharmacy immediate release insulin 10 units TID for now labs tmr cont other home meds thank you kindly for consult, TH will follow. MILLI TRINH MD Apr 14, 2018 14:59
[2018-04-14] MEDS ORDERED: ATORVASTATIN CALCIUM 20 MG TABLET PO SCH (21:00)
[2018-04-14] MEDS: FERROUS SULFATE 325 MG TABLET. PO SCH (21:03)
[2018-04-15] MEDS ORDERED: DEXTROSE 50% 25 GM / 50ML DISP.SYRIN. IV PRN (01:45)
[2018-04-15 03:00] VITALS: BP 92/37
[2018-04-15] MEDS: IV NORMAL SALINE 1000ML BAG 1,000 ML IV SCH (05:48)
[2018-04-15] MEDS: LEVOTHYROXINE 150 MCG TABLET PO SCH (05:50)
[2018-04-15 07:00] VITALS: BP 93/42
[2018-04-15] MEDS: ALBUTEROL SULFATE 2.5 MG/3 ML NEBU. NEB SCH ×2 (07:05→11:14)
[2018-04-15] MEDS: BUDESONIDE 0.5 MG/2 ML NEBU. NEB SCH (07:05)
--- NOTE | 2018-04-15 07:29 | PDOC ---
PROGRESS NOTES Subjective Subjective doing well, wound vac placed yesterday Objective Objective Vital Signs Date Time Temp Pulse Resp B/P (MAP) Pulse Ox O2 Delivery O2 Flow Rate FiO2 04/15/18 07:06 Nasal Cannula 2.0 04/15/18 03:00 98.0 78 18 92/37 (55) 97 98.0 Intake and Output 04/15/18 07:01 Intake Total 160 ml Output Total 35 ml Balance 125 ml Intake Oral 10 ml IV Total 150 ml Output Estimated Blood Loss 35 ml # Voids 3 Physical Exam Physical Exam wound vac intact Plan Plan of Care Discharge after dialysis today Comment Review of Relevant I have reviewed the following items filippo (where applicable) has been applied. Labs Laboratory Tests Test 04/14/18 06:55 04/14/18 07:20 04/14/18 08:45 04/14/18 10:19 Sodium Level 138 mmol/L (136-145) Potassium Level 4.1 mmol/L (3.5-5.1) Chloride Level 99 mmol/L (98-107) Carbon Dioxide Level 26 mmol/L (21-32) Anion Gap 13 (6-14) Blood Urea Nitrogen 24 mg/dL (7-20) Creatinine 4.9 mg/dL (0.6-1.0) Estimated GFR (Cockcroft-Gault) 10.7 Glucose Level 342 mg/dL (70-99) Calcium Level 8.9 mg/dL (8.5-10.1) Glucose (Fingerstick) 282 mg/dL (70-99) 297 mg/dL (70-99) 311 mg/dL (70-99) Test 04/14/18 11:47 04/14/18 20:53 Glucose (Fingerstick) 284 mg/dL (70-99) 316 mg/dL (70-99) Laboratory Tests Test 04/14/18 08:45 04/14/18 10:19 04/14/18 11:47 04/14/18 20:53 Glucose (Fingerstick) 297 mg/dL (70-99) 311 mg/dL (70-99) 284 mg/dL (70-99) 316 mg/dL (70-99) Medications Current Medications Cefazolin Sodium/ Dextrose 50 ml @ 100 mls/hr 1X PREOP PRN IV PRIOR TO PROCEDURE; Start 04/14/18 at 06:00; Stop 04/14/18 at 16:40; Status DC Ondansetron HCl (Zofran) 4 mg PRN Q6HRS PRN IV NAUSEA/VOMITING; Start 04/14/18 at 07:00; Stop 04/14/18 at 22:17; Status DC Fentanyl Citrate (Fentanyl 2ml Vial) 25 mcg PRN Q5MIN PRN IV MILD PAIN; Start 04/14/18 at 07:00; Stop 04/14/18 at 22:17; Status DC Fentanyl Citrate (Fentanyl 2ml Vial) 50 mcg PRN Q5MIN PRN IV MODERATE TO SEVERE PAIN Last administered on 04/14/18at 09:31; Start 04/14/18 at 07:00; Stop at 22:17; Status DC Morphine Sulfate (Morphine Sulfate) 1 mg PRN Q10MIN PRN IV SEVERE PAIN Last administered on 04/14/18at 09:58; Start 04/14/18 at 07:00; Stop 04/14/18 at 22:15; Status DC Ringer's Solution 1,000 ml @ 30 mls/hr Q24H IV ; Start 04/14/18 at 07:00; Stop 04/14/18 at 18:59; Status DC Lidocaine HCl (Xylocaine-Mpf 1% 2ml Vial) 2 ml PRN 1X PRN ID PRIOR TO IV START ; Start 04/14/18 at 07:00; Stop 04/14/18 at 22:17; Status DC Hydromorphone HCl (Dilaudid) 0.5 mg PRN Q10MIN PRN IV SEV PAIN, Second choice; Start 04/14/18 at 07:00; Stop 04/14/18 at 22:17; Status DC Prochlorperazine Edisylate (Compazine) 5 mg PACU PRN PRN IV NAUSEA, MRX1; Start 04/14/18 at 07:00; Stop 04/14/18 at 22:17; Status DC Albuterol/ Ipratropium (Duoneb) 3 ml 1X ONCE NEB Last administered on at 07:27; Start 04/14/18 at 07:00; Stop 04/14/18 at 07:01; Status DC Sodium Chloride 1,000 ml @ 30 mls/hr Q24H IV Last administered on 04/14/18at 07: 16; Start 04/14/18 at 07:15 Bupivacaine HCl/ Epinephrine Bitart (Sensorcain-Mpf Epi 0.5%-1:449817) 30 ml STK -MED ONCE .ROUTE ; Start 04/14/18 at 07:13; Stop 04/14/18 at 07:15; Status DC Lidocaine/ Epinephrine (LIDOCAINE 1%-EPI 1:100,000 Multi-Dose) 20 ml STK-MED ONCE .ROUTE ; Start 04/14/18 at 07:13; Stop 04/14/18 at 07:16; Status DC Succinylcholine Chloride (Anectine) 200 mg STK-MED ONCE .ROUTE ; Start 04/14/18 at 07:16; Stop 04/14/18 at 07:18; Status DC Insulin Human Lispro (HumaLOG VIAL) 6 unit 1X ONCE SQ Last administered on 04/14at 07:38; Start 04/14/18 at 07:30; Stop 04/14/18 at 07:31; Status DC Propofol 20 ml @ As Directed STK-MED ONCE IV ; Start 04/14/18 at 07:21; Stop 04/14 at 07:23; Status DC Lidocaine HCl (Lidocaine Pf 2% Vial) 5 ml STK-MED ONCE .ROUTE ; Start 04/14/18 at 07:21; Stop 04/14/18 at 07:23; Status DC Dexamethasone Sodium Phosphate (Decadron) 20 mg STK-MED ONCE .ROUTE ; Start 04/14 at 07:21; Stop 04/14/18 at 07:23; Status DC Ondansetron HCl (Zofran) 4 mg STK-MED ONCE .ROUTE ; Start 04/14/18 at 07:21; Stop 04/14/18 at 07:23; Status DC Fentanyl Citrate (Fentanyl 2ml Vial) 100 mcg STK-MED ONCE .ROUTE ; Start at 07:22; Stop 04/14/18 at 07:24; Status DC Ephedrine Sulfate (Akovaz) 50 mg STK-MED ONCE .ROUTE ; Start 04/14/18 at 07:52; Stop 04/14/18 at 07:54; Status DC Sevoflurane (Ultane) 30 ml STK-MED ONCE IH ; Start 04/14/18 at 08:07; Stop at 08:09; Status DC Sodium Chloride (Normal Saline Flush) 3 ml QSHIFT PRN IV AFTER MEDS AND BLOOD DRAWS; Start 04/14/18 at 08:45 Acetaminophen/ Hydrocodone Bitart (Lortab 5/325) 1 tab PRN Q4HRS PRN PO MILD PAIN Last administered on 04/14/18at 17:56; Start 04/14/18 at 08:45 Acetaminophen/ Hydrocodone Bitart (Lortab 5/325) 2 tab PRN Q4HRS PRN PO MODERATE PAIN, SEVERE PAIN; Start 04/14/18 at 08:45 Ondansetron HCl (Zofran) 4 mg PRN Q6HRS PRN IV NAUESA, 1ST CHOICE; Start at 08:45 Allopurinol (Zyloprim) 100 mg DAILY PO ; Start 04/14/18 at 09:00; Stop 04/14/18 at 23:47; Status DC Amoxicillin/ Clavulanate Potassium (Augmentin 875/ 125mg) 1 tab BID PO Last administered on 04/14/18at 12:40; Start 04/14/18 at 09:00; Stop 04/14/18 at 16:42; Status DC Aspirin (Children'S Aspirin) 81 mg DAILY PO ; Start 04/14/18 at 09:00 Atorvastatin Calcium (Lipitor) 20 mg HS PO Last administered on 04/14/18at 21:03 ; Start 04/14/18 at 21:00 Calcium Carbonate/ Glycine (Tums) 500 mg TIDAC PO Last administered on at 17:56; Start 04/14/18 at 11:30 Carvedilol (Coreg) 6.25 mg BIDWMEALS PO Last administered on 04/14/18at 21:03; Start 04/14/18 at 09:15 Cinacalcet (Sensipar) 30 mg DAILY PO ; Start 04/14/18 at 09:00; Stop 04/14/18 at 23:47; Status DC Diclofenac Sodium (Voltaren) 100 charan PRN QID PRN TP PAIN; Start 04/14/18 at 08: 45 Docusate Sodium (Colace) 100 mg BID PO Last administered on 04/14/18at 21:03; Start 04/14/18 at 09:00 Ferrous Sulfate (Feosol) 325 mg TIDWMEALS PO Last administered on 04/14/18at 12: 52; Start 04/14/18 at 12:00; Stop 04/14/18 at 16:49; Status DC Losartan Potassium (Cozaar) 25 mg DAILY PO ; Start 04/14/18 at 09:00; Stop at 09:14; Status DC Non-Formulary Medication (Albuterol Sulfate (Ventolin Hfa Inhaler)) 2 puff QID INH ; Start 04/14/18 at 09:00; Status UNV Non-Formulary Medication (Fluticasone/ Vilanterol (Breo Ellipta 100-25 Mcg Inh) ) 1 puff DAILY PRN IH daily; Start 04/14/18 at 08:45; Status UNV Insulin Human Lispro (HumaLOG) 10 units TIDWMEALS SQ Last administered on at 18:13; Start 04/14/18 at 12:00 Levothyroxine Sodium (Synthroid) 150 mcg DAILY06 PO Last administered on at 05:50; Start 04/14/18 at 10:30 Pantoprazole Sodium (Protonix) 40 mg DAILYAC PO ; Start 04/14/18 at 11:30 Insulin Human Lispro (HumaLOG VIAL) 4 unit 1X ONCE SQ Last administered on 04/14at 09:17; Start 04/14/18 at 09:00; Stop 04/14/18 at 09:14; Status DC Losartan Potassium (Cozaar) 25 mg DAILY PO ; Start 04/14/18 at 09:14 Albuterol Sulfate (Ventolin Neb Soln) 2.5 mg RTQID NEB Last administered on 04/15at 07:05; Start 04/14/18 at 12:00 Budesonide (Pulmicort) 0.5 mg RTBID NEB Last administered on 04/15/18at 07:05; Start 04/14/18 at 10:00 Insulin Human Lispro (HumaLOG VIAL) 10 unit 1X ONCE SQ Last administered on 04/14/18at 10:29; Start 04/14/18 at 10:30; Stop 04/14/18 at 10:31; Status DC Morphine Sulfate (Morphine Sulfate) 2 mg 1X ONCE IV Last administered on at 14:24; Start 04/14/18 at 14:15; Stop 04/14/18 at 14:19; Status DC Amoxicillin/ Clavulanate Potassium (Augmentin 500/ 125mg) 1 tab Q24H PO ; Start 04/15/18 at 09:00 Ferrous Sulfate (Feosol) 325 mg TID@1000,1400,2200 PO Last administered on at 21:03; Start 04/14/18 at 22:00 Insulin Human Lispro (HumaLOG) 0-7 UNITS TIDWMEALS SQ ; Start 04/15/18 at 08:00 Dextrose (Dextrose 50%-Water Syringe) 12.5 gm PRN Q15MIN PRN IV SEE COMMENTS; Start 04/15/18 at 01:45 Active Scripts Active Reported Augmentin 875-125 Tablet (Amoxicillin/Potassium Clav) 1 Each Tablet 1 Tab PO BID Protonix (Pantoprazole Sodium) 20 Mg Tablet.dr 40 Mg PO DAILY Lipitor (Atorvastatin Calcium) 20 Mg Tablet 20 Mg PO HS Aspirin 81 Mg Tab.chew 1 Tab PO DAILY Losartan Potassium 50 Mg Tablet 25 Mg PO DAILY Tums (Calcium Carbonate) 200 Mg Tab.chew 2 Tab PO TIDAC Breo Ellipta 100-25 Mcg Inh (Fluticasone/Vilanterol) 1 Each Aer.pow.ba 1 Puff IH DAILY PRN Ventolin Hfa Inhaler (Albuterol Sulfate) 18 Gm Hfa.aer.ad 2 Puff INH QID Ferrous Sulfate 325 Mg Tablet 325 Mg PO TID Docusate Sodium 100 Mg Capsule 100 Mg PO BID Humulin R U-500 Kwikpen (Insulin Regular, Human) 500 Unit/1 Ml Insuln.pen 10 Unit SQ TIDAC U-500 Voltaren (Diclofenac Sodium) 100 Gm Gel..gram. 100 Gm TP PRN QID PRN [place] 10-325 Tablet (Acetaminophen/Hydrocodone Bitart) 1 Each Tablet 1 Tab PO PRN Q6HRS PRN Levothyroxine Sodium 150 Mcg Tablet 150 Mcg PO DAILYAC Carvedilol (Carvedilol) 6.25 Mg Tablet 6.25 Mg PO BIDWMEALS Vitals/I & O Vital Sign - Last 24 Hours 04/14/18 04/14/18 04/14/18 04/14/18 08:29 08:29 08:45 09:00 Temp 96.7 96.7 97.9 96.7 96.7 97.9 Pulse 95 92 94 Resp 19 26 15 B/P (MAP) 151/75 145/75 133/65 Pulse Ox 98 98 98 O2 Delivery Nasal Cannula Nasal Cannula Nasal Cannula Nasal Cannula O2 Flow Rate 2 2 2 2 04/14/18 04/14/18 04/14/18 04/14/18 09:14 09:15 09:30 09:31 Temp 97.9 97.9 97.9 97.9 Pulse 94 92 Resp 15 14 14 14 B/P (MAP) 149/68 123/63 Pulse Ox 95 95 95 95 O2 Delivery Nasal Cannula Nasal Cannula Nasal Cannula Nasal Cannula O2 Flow Rate 2.0 2.0 3 2.0 04/14/18 04/14/18 04/14/18 04/14/18 09:45 09:45 09:58 10:00 Temp 97.9 97.9 97.9 97.9 Pulse 92 91 Resp 14 14 13 14 B/P (MAP) 138/65 136/63 Pulse Ox 95 95 96 100 O2 Delivery Nasal Cannula Nasal Cannula Nasal Cannula Nasal Cannula O2 Flow Rate 3.0 3.0 3.0 3.0 04/14/18 04/14/18 04/14/18 04/14/18 10:07 10:13 10:50 11:00 Temp 97.9 97.9 97.9 97.9 Pulse 92 77 Resp 14 14 B/P (MAP) 136/63 138/63 Pulse Ox 98 98 O2 Delivery Nasal Cannula Nasal Cannula Nasal Cannula Nasal Cannula O2 Flow Rate 3 3 3 3.0 04/14/18 04/14/18 04/14/18 04/14/18 11:00 11:15 11:18 11:30 Pulse 91 89 91 Resp 18 18 18 B/P (MAP) 138/70 (92) 131/63 (85) 131/66 (87) Pulse Ox 97 97 97 96 O2 Delivery Nasal Cannula Nasal Cannula Nasal Cannula Nasal Cannula O2 Flow Rate 3.0 3.0 2.0 3.0 04/14/18 04/14/18 04/14/18 04/14/18 11:45 12:00 12:30 12:43 Pulse 92 94 96 77 Resp 18 18 18 B/P (MAP) 131/65 (87) 137/53 (81) 124/64 (84) 138/63 Pulse Ox 96 95 95 O2 Delivery Nasal Cannula Nasal Cannula Nasal Cannula O2 Flow Rate 3.0 3.0 3.0 04/14/18 04/14/18 04/14/18 04/14/18 12:46 13:00 14:00 14:24 Pulse 94 91 Resp 18 18 B/P (MAP) 122/62 (82) 124/60 (81) Pulse Ox 97 94 95 O2 Delivery Nasal Cannula Nasal Cannula Nasal Cannula Nasal Cannula O2 Flow Rate 2.0 3.0 3.0 2.0 04/14/18 04/14/18 04/14/18 04/14/18 15:00 15:00 15:33 17:56 Pulse 88 Resp 18 B/P (MAP) 125/52 (76) Pulse Ox 94 94 O2 Delivery Nasal Cannula Nasal Cannula Nasal Cannula Nasal Cannula O2 Flow Rate 3.0 3.0 2.0 2.0 04/14/18 04/14/18 04/14/18 04/14/18 19:00 19:00 20:00 20:05 Temp 97.7 97.7 Pulse 86 Resp 18 B/P (MAP) 124/47 (72) Pulse Ox 92 99 O2 Delivery Room Air Nasal Cannula Nasal Cannula Nasal Cannula O2 Flow Rate 2.0 3.0 2.0 04/14/18 04/14/18 04/14/18 04/15/18 20:07 21:03 23:00 03:00 Temp 97.6 98.0 97.6 98.0 Pulse 86 82 78 Resp 18 18 B/P (MAP) 124/47 112/45 (67) 92/37 (55) Pulse Ox 99 93 97 O2 Delivery Nasal Cannula Nasal Cannula Nasal Cannula O2 Flow Rate 2.0 2.0 2.0 04/15/18 07:06 O2 Delivery Nasal Cannula O2 Flow Rate 2.0 Intake and Output 04/14/18 04/14/18 04/15/18 15:01 23:01 07:01 Intake Total 160 ml Output Total 35 ml Balance 125 ml NEVA MCMANUS MD Apr 15, 2018 07:29
[2018-04-15] MEDS: CALCIUM CARBONATE 500 MG TAB.CHEW PO SCH ×2 (07:30→13:08)
[2018-04-15] MEDS: PANTOPRAZOLE 40 MG TABLET.DR. PO SCH (07:30)
--- NOTE | 2018-04-15 07:32 | DISCH ---
DISCHARGE INSTRUCTIONS Condition on Discharge Condition on Discharge: Stable Activity After Discharge Activity Instructions for Disc: Resume previous activity Diet after Discharge Diet after Discharge: Renal Dialysis Wound Incision Care Wound/Incision Care: Other, see below (wound vac per wound care team) Follow-Up Follow up with: Wound care center Wednesday04/18/18 Follow Up With: Dr Mcmanus in office in 2 weeks, call for appt [phone] NEVA MCMANUS MD Apr 15, 2018 07:32
--- NOTE | 2018-04-15 07:34 | PDOC3 ---
Discharge Summary Visit Information Date of Admission: Apr 14, 2018 Date of Discharge: Apr 15, 2018 Admitting Diagnosis: Breast abscess Brief Hospital Course Allergies Allergies Coded Allergies Type Severity Reaction Last Updated Verified meperidine Allergy Intermediate 04/12/18 Yes Vital Signs Vital Signs Date Time Temp Pulse Resp B/P (MAP) Pulse Ox O2 Delivery O2 Flow Rate FiO2 04/15/18 07:06 Nasal Cannula 2.0 04/15/18 03:00 98.0 78 18 92/37 (55) 97 98.0 Lab Results Laboratory Tests Test 04/14/18 06:55 04/14/18 07:20 04/14/18 08:45 04/14/18 10:19 Sodium Level 138 mmol/L (136-145) Potassium Level 4.1 mmol/L (3.5-5.1) Chloride Level 99 mmol/L (98-107) Carbon Dioxide Level 26 mmol/L (21-32) Anion Gap 13 (6-14) Blood Urea Nitrogen 24 mg/dL (7-20) Creatinine 4.9 mg/dL (0.6-1.0) Estimated GFR (Cockcroft-Gault) 10.7 Glucose Level 342 mg/dL (70-99) Calcium Level 8.9 mg/dL (8.5-10.1) Glucose (Fingerstick) 282 mg/dL (70-99) 297 mg/dL (70-99) 311 mg/dL (70-99) Test 04/14/18 11:47 04/14/18 20:53 Glucose (Fingerstick) 284 mg/dL (70-99) 316 mg/dL (70-99) Laboratory Tests Test 04/14/18 08:45 04/14/18 10:19 04/14/18 11:47 04/14/18 20:53 Glucose (Fingerstick) 297 mg/dL (70-99) 311 mg/dL (70-99) 284 mg/dL (70-99) 316 mg/dL (70-99) Brief Hospital Course Ms. Eaton is a 67 old female who presented with a right breast abscess. She underwent incision, drainage and washout. Postoperatively a wound vac was applied by the wound care team. She is to be discharged on POD 1 following dialysis. Discharge Information Follow Up: Weeks (2 weeks) Disposition/Orders: D/C to Home Scheduled Albuterol Sulfate (Ventolin Hfa Inhaler) 18 Gm Hfa.aer.ad, 2 PUFF INH QID for FOR ASTHMA, Ref 0 (Reported) Entered as Reported by: FELIPA RICKETTS on 01/10/181844 Last Taken: Unknown Dose on 04/13/18 Last Action: Converted on 04/14/18845 by NEVA MCMANUS Amoxicillin/Potassium Clav (Augmentin 875-125 Tablet) 1 Each Tablet, 1 TAB PO BID for ANTIBIOTIC, #14 (Reported) Entered as Reported by: AYESHA GARNER on 04/12/18 1522 Last Taken: Unknown Dose on 04/13/18 Last Action: Continued on 04/14/18845 by NEVA MCMANUS Aspirin (Aspirin) 81 Mg Tab.chew, 1 TAB PO DAILY for BLOOD THINNER, #30 Ref 3 ( Reported) Entered as Reported by: AYESHA GARNER on 04/12/189 Last Action: Continued on 04/14/18845 by NEVA MCMANUS Atorvastatin Calcium (Lipitor) 20 Mg Tablet, 20 MG PO HS for FOR CHOLESTEROL, # 30 Ref 0 (Reported) Entered as Reported by: AYESHA GARNER on 04/12/181519 Last Taken: Unknown Dose on 04/13/18 Last Action: Continued on 04/14/18845 by NEVA MCMANUS Calcium Carbonate (Tums) 200 Mg Tab.chew, 2 TAB PO TIDAC for calcium supplement, (Reported) Entered as Reported by: FELIPA RICKETTS on 01/10/181844 Last Taken: Unknown Dose on 04/13/18 Last Action: Continued on 04/14/18845 by NEVA MCMANUS Carvedilol (Carvedilol ) 6.25 Mg Tablet, 6.25 MG PO BIDWMEALS for hypertension , (Reported) Entered as Reported by: FELIPA RICKETTS on 01/10/181844 Last Action: Continued on 04/14/18845 by NEVA MCMANUS Docusate Sodium (Docusate Sodium) 100 Mg Capsule, 100 MG PO BID for constipation , (Reported) Entered as Reported by: FELIPA RICKETTS on 01/10/181844 Last Taken: Unknown Dose on 04/13/18 Last Action: Continued on 04/14/18845 by NEVA MCMANUS Ferrous Sulfate (Ferrous Sulfate) 325 Mg Tablet, 325 MG PO TID for anemia, ( Reported) Entered as Reported by: FELIPA RICKETTS on 01/10/181844 Last Taken: Unknown Dose on 04/13/18 Last Action: Continued on 04/14/18845 by NEVA MCMANUS Insulin Regular, Human (Humulin R U-500 Kwikpen) 500 Unit/1 Ml Insuln.pen, 10 UNIT SQ TIDAC for diabetes, (Reported) U-500 Entered as Reported by: FELIPA RICKETTS on 01/10/181844 Last Taken: Unknown Dose on 04/13/18 Last Action: Converted on 04/14/18845 by NEVA MCMANUS Levothyroxine Sodium (Levothyroxine Sodium) 150 Mcg Tablet, 150 MCG PO DAILYAC for THYROID SUPPLEMENT, #30 Ref 0 (Reported) Entered as Reported by: FELIPA RICKETTS on 01/10/181844 Last Taken: Unknown Dose on 04/14/18 0500 Last Action: Converted on 04/14/18845 by NEVA MCMANUS Losartan Potassium (Losartan Potassium) 50 Mg Tablet, 25 MG PO DAILY for HYPERTENSION, (Reported) Entered as Reported by: AYESHA GARNER on 04/12/18 1519 Last Taken: Unknown Dose on 04/13/18 Last Action: Continued on 04/14/18845 by NEVA MCMANUS Pantoprazole Sodium (Protonix) 20 Mg Tablet.dr, 40 MG PO DAILY for GERD, ( Reported) Entered as Reported by: AYESHA GARNER on 04/12/18 1521 Last Taken: Unknown Dose on 04/13/18 Last Action: Converted on 04/14/18845 by NEVA MCMANUS Scheduled PRN Diclofenac Sodium (Voltaren) 100 Gm Gel..gram., 100 GM TP PRN QID PRN for PAIN, (Reported) Entered as Reported by: FELIPA RICKETTS on 01/10/181844 Last Taken: Unknown Dose on 04/13/18 Last Action: Continued on 04/14/18845 by NEVA MCMANUS Fluticasone/Vilanterol (Breo Ellipta 100-25 Mcg Inh) 1 Each Aer.pow.ba, 1 PUFF IH DAILY PRN for daily, (Reported) Entered as Reported by: FELIPA RICKETTS on 01/10/181844 Last Taken: Unknown Dose on 04/13/18 Last Action: Converted on 04/14/18 0846 by NEVA MCMANUS Hydrocodone/Apap 10-325 ([place] 10-325 Tablet) 1 Each Tablet, 1 TAB PO PRN Q6HRS PRN for PAIN, Ref 0 (Reported) Entered as Reported by: FELIPA RICKETTS on 01/10/181844 Last Taken: Unknown Dose on 04/13/18 Last Action: HELD on 04/14/18 1404 by MILLI TRINH MD Discontinued Medications Allopurinol (Allopurinol) 100 Mg Tablet, 100 MG PO BID for GOUT, (Reported) Entered as Reported by: FELIPA RICKETTS on 01/10/18 153 Last Action: Discontinued on 04/12/181518 by AYESHA GARNER Calcium Acetate (Calcium Acetate) 667 Mg Tablet, 667 MG PO TIDWMEALS for DIALYSIS PATIENTS, (Reported) Entered as Reported by: FELIPA RICKETTS on 01/10/181844 Last Action: Discontinued on 04/12/181518 by AYESHA GARNER Diphenhydramine Hcl (Diphenhydramine Hcl) 50 Mg Capsule, 25 MG PO PRN DAILY for itching, (Reported) Entered as Reported by: FELIPA RICKETTS on 01/10/181844 Last Action: Discontinued on 04/12/181518 by AYESHA GARNER Fluticasone Propionate (Flonase Allergy Relief) 9.9 Ml [place].susp, 2 SPRAYS NS DAILY PRN for ALLERGIES, (Reported) Entered as Reported by: FELIPA RICKETTS on 01/10/181844 Last Action: Discontinued on 04/12/181518 by NEVA SHERMAN MD Apr 15, 2018 07:34
--- NOTE | 2018-04-15 07:53 | NUR ---
Pt taken for dialysis at 0750 before 0730 medications could be administered. Will non admin at this time. Hold [id number] meds for when the patient returns to the floor.
[2018-04-15] MEDS: INSULIN LISPRO 300 UNITS/3 ML INSULN.PEN. SQ SCH ×4 (08:00→13:13)
[2018-04-15] MEDS: CARVEDILOL 6.25 MG TABLET. PO SCH (08:00)
[2018-04-15] MEDS ORDERED: AMOXICILLIN/K CLAV 500/125MG TABLET. PO SCH (09:00)
[2018-04-15] MEDS ORDERED: IV NORMAL SALINE 1000ML BAG 1,000 ML IV PRN ×2 (09:01)
[2018-04-15] MEDS ORDERED: DIALYSIS PATIENT. MC PRN (09:15)
--- NOTE | 2018-04-15 09:15 | PDOC2 ---
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 She has developed problems related to postoperative infections. She was admitted by surgery and underwent Incision and drainage with washout of right breast abscess. Seen on HD, no acute complaints currently . Denies any CP. sob. No N/V/D. has been on HD for 3 years. Claims has some RRF Past Surgical History Past Surgical History: CABG Family History Family History: Hypertension Social History ALCOHOL: none Lives: with Family Domestic Violence: Neg Current Medications Current Medications Current Medications Cefazolin Sodium/ Dextrose 50 ml @ 100 mls/hr 1X PREOP PRN IV PRIOR TO PROCEDURE; Start 04/14/18 at 06:00; Stop 04/14/18 at 16:40; Status DC Ondansetron HCl (Zofran) 4 mg PRN Q6HRS PRN IV NAUSEA/VOMITING; Start 04/14/18 at 07:00; Stop 04/14/18 at 22:17; Status DC Fentanyl Citrate (Fentanyl 2ml Vial) 25 mcg PRN Q5MIN PRN IV MILD PAIN; Start 04/14/18 at 07:00; Stop 04/14/18 at 22:17; Status DC Fentanyl Citrate (Fentanyl 2ml Vial) 50 mcg PRN Q5MIN PRN IV MODERATE TO SEVERE PAIN Last administered on 04/14/18at 09:31; Start 04/14/18 at 07:00; Stop at 22:17; Status DC Morphine Sulfate (Morphine Sulfate) 1 mg PRN Q10MIN PRN IV SEVERE PAIN Last administered on 04/14/18at 09:58; Start 04/14/18 at 07:00; Stop 04/14/18 at 22:15; Status DC Ringer's Solution 1,000 ml @ 30 mls/hr Q24H IV ; Start 04/14/18 at 07:00; Stop 04/14/18 at 18:59; Status DC Lidocaine HCl (Xylocaine-Mpf 1% 2ml Vial) 2 ml PRN 1X PRN ID PRIOR TO IV START ; Start 04/14/18 at 07:00; Stop 04/14/18 at 22:17; Status DC Hydromorphone HCl (Dilaudid) 0.5 mg PRN Q10MIN PRN IV SEV PAIN, Second choice; Start 04/14/18 at 07:00; Stop 04/14/18 at 22:17; Status DC Prochlorperazine Edisylate (Compazine) 5 mg PACU PRN PRN IV NAUSEA, MRX1; Start 04/14/18 at 07:00; Stop 04/14/18 at 22:17; Status DC Albuterol/ Ipratropium (Duoneb) 3 ml 1X ONCE NEB Last administered on at 07:27; Start 04/14/18 at 07:00; Stop 04/14/18 at 07:01; Status DC Sodium Chloride 1,000 ml @ 30 mls/hr Q24H IV Last administered on 04/14/18at 07: 16; Start 04/14/18 at 07:15 Bupivacaine HCl/ Epinephrine Bitart (Sensorcain-Mpf Epi 0.5%-1:273658) 30 ml STK -MED ONCE .ROUTE ; Start 04/14/18 at 07:13; Stop 04/14/18 at 07:15; Status DC Lidocaine/ Epinephrine (LIDOCAINE 1%-EPI 1:100,000 Multi-Dose) 20 ml STK-MED ONCE .ROUTE ; Start 04/14/18 at 07:13; Stop 04/14/18 at 07:16; Status DC Succinylcholine Chloride (Anectine) 200 mg STK-MED ONCE .ROUTE ; Start 04/14/18 at 07:16; Stop 04/14/18 at 07:18; Status DC Insulin Human Lispro (HumaLOG VIAL) 6 unit 1X ONCE SQ Last administered on 04/14at 07:38; Start 04/14/18 at 07:30; Stop 04/14/18 at 07:31; Status DC Propofol 20 ml @ As Directed STK-MED ONCE IV ; Start 04/14/18 at 07:21; Stop 04/14 at 07:23; Status DC Lidocaine HCl (Lidocaine Pf 2% Vial) 5 ml STK-MED ONCE .ROUTE ; Start 04/14/18 at 07:21; Stop 04/14/18 at 07:23; Status DC Dexamethasone Sodium Phosphate (Decadron) 20 mg STK-MED ONCE .ROUTE ; Start 04/14 at 07:21; Stop 04/14/18 at 07:23; Status DC Ondansetron HCl (Zofran) 4 mg STK-MED ONCE .ROUTE ; Start 04/14/18 at 07:21; Stop 04/14/18 at 07:23; Status DC Fentanyl Citrate (Fentanyl 2ml Vial) 100 mcg STK-MED ONCE .ROUTE ; Start at 07:22; Stop 04/14/18 at 07:24; Status DC Ephedrine Sulfate (Akovaz) 50 mg STK-MED ONCE .ROUTE ; Start 04/14/18 at 07:52; Stop 04/14/18 at 07:54; Status DC Sevoflurane (Ultane) 30 ml STK-MED ONCE IH ; Start 04/14/18 at 08:07; Stop at 08:09; Status DC Sodium Chloride (Normal Saline Flush) 3 ml QSHIFT PRN IV AFTER MEDS AND BLOOD DRAWS; Start 04/14/18 at 08:45 Acetaminophen/ Hydrocodone Bitart (Lortab 5/325) 1 tab PRN Q4HRS PRN PO MILD PAIN Last administered on 04/14/18at 17:56; Start 04/14/18 at 08:45 Acetaminophen/ Hydrocodone Bitart (Lortab 5/325) 2 tab PRN Q4HRS PRN PO MODERATE PAIN, SEVERE PAIN; Start 04/14/18 at 08:45 Ondansetron HCl (Zofran) 4 mg PRN Q6HRS PRN IV NAUESA, 1ST CHOICE; Start at 08:45 Allopurinol (Zyloprim) 100 mg DAILY PO ; Start 04/14/18 at 09:00; Stop 04/14/18 at 23:47; Status DC Amoxicillin/ Clavulanate Potassium (Augmentin 875/ 125mg) 1 tab BID PO Last administered on 04/14/18at 12:40; Start 04/14/18 at 09:00; Stop 04/14/18 at 16:42; Status DC Aspirin (Children'S Aspirin) 81 mg DAILY PO ; Start 04/14/18 at 09:00 Atorvastatin Calcium (Lipitor) 20 mg HS PO Last administered on 04/14/18 21:03 ; Start 04/14/18 at 21:00 Calcium Carbonate/ Glycine (Tums) 500 mg TIDAC PO Last administered on at 17:56; Start 04/14/18 at 11:30 Carvedilol (Coreg) 6.25 mg BIDWMEALS PO Last administered on 04/14/18at 21:03; Start 04/14/18 at 09:15 Cinacalcet (Sensipar) 30 mg DAILY PO ; Start 04/14/18 at 09:00; Stop 04/14/18 at 23:47; Status DC Diclofenac Sodium (Voltaren) 100 charan PRN QID PRN TP PAIN; Start 04/14/18 at 08: 45 Docusate Sodium (Colace) 100 mg BID PO Last administered on 04/14/18at 21:03; Start 04/14/18 at 09:00 Ferrous Sulfate (Feosol) 325 mg TIDWMEALS PO Last administered on 04/14/18 12: 52; Start 04/14/18 at 12:00; Stop 04/14/18 at 16:49; Status DC Losartan Potassium (Cozaar) 25 mg DAILY PO ; Start 04/14/18 at 09:00; Stop at 09:14; Status DC Non-Formulary Medication (Albuterol Sulfate (Ventolin Hfa Inhaler)) 2 puff QID INH ; Start 04/14/18 at 09:00; Status UNV Non-Formulary Medication (Fluticasone/ Vilanterol (Breo Ellipta 100-25 Mcg Inh) ) 1 puff DAILY PRN IH daily; Start 04/14/18 at 08:45; Status UNV Insulin Human Lispro (HumaLOG) 10 units TIDWMEALS SQ Last administered on 18:13; Start 04/14/18 at 12:00 Levothyroxine Sodium (Synthroid) 150 mcg DAILY06 PO Last administered on at 05:50; Start 04/14/18 at 10:30 Pantoprazole Sodium (Protonix) 40 mg DAILYAC PO ; Start 04/14/18 at 11:30 Insulin Human Lispro (HumaLOG VIAL) 4 unit 1X ONCE SQ Last administered on 04/14at 09:17; Start 04/14/18 at 09:00; Stop 04/14/18 at 09:14; Status DC Losartan Potassium (Cozaar) 25 mg DAILY PO ; Start 04/14/18 at 09:14 Albuterol Sulfate (Ventolin Neb Soln) 2.5 mg RTQID NEB Last administered on 04/15at 07:05; Start 04/14/18 at 12:00 Budesonide (Pulmicort) 0.5 mg RTBID NEB Last administered on 04/15/18at 07:05; Start 04/14/18 at 10:00 Insulin Human Lispro (HumaLOG VIAL) 10 unit 1X ONCE SQ Last administered on 04/14/18at 10:29; Start 04/14/18 at 10:30; Stop 04/14/18 at 10:31; Status DC Morphine Sulfate (Morphine Sulfate) 2 mg 1X ONCE IV Last administered on at 14:24; Start 04/14/18 at 14:15; Stop 04/14/18 at 14:19; Status DC Amoxicillin/ Clavulanate Potassium (Augmentin 500/ 125mg) 1 tab Q24H PO ; Start 04/15/18 at 09:00 Ferrous Sulfate (Feosol) 325 mg TID@1000,1400,2200 PO Last administered on at 21:03; Start 04/14/18 at 22:00 Insulin Human Lispro (HumaLOG) 0-7 UNITS TIDWMEALS SQ ; Start 04/15/18 at 08:00 Dextrose (Dextrose 50%-Water Syringe) 12.5 gm PRN Q15MIN PRN IV SEE COMMENTS; Start 04/15/18 at 01:45 Sodium Chloride 1,000 ml @ 1,000 mls/hr Q1H PRN IV hypotension; Start 04/15/18 at 09:01; Stop 04/15/18 at 15:00 Sodium Chloride 1,000 ml @ 400 mls/hr Q2H30M PRN IV PATENCY; Start 04/15/18 at 09:01; Stop 04/15/18 at 21:00 Info (PHARMACY MONITORING -- do not chart) 1 each PRN DAILY PRN MC SEE COMMENTS ; Start 04/15/18 at 09:15 Active Scripts Active Reported Augmentin 875-125 Tablet (Amoxicillin/Potassium Clav) 1 Each Tablet 1 Tab PO BID Protonix (Pantoprazole Sodium) 20 Mg Tablet.dr 40 Mg PO DAILY Lipitor (Atorvastatin Calcium) 20 Mg Tablet 20 Mg PO HS Aspirin 81 Mg Tab.chew 1 Tab PO DAILY Losartan Potassium 50 Mg Tablet 25 Mg PO DAILY Tums (Calcium Carbonate) 200 Mg Tab.chew 2 Tab PO TIDAC Breo Ellipta 100-25 Mcg Inh (Fluticasone/Vilanterol) 1 Each Aer.pow.ba 1 Puff IH DAILY PRN Ventolin Hfa Inhaler (Albuterol Sulfate) 18 Gm Hfa.aer.ad 2 Puff INH QID Ferrous Sulfate 325 Mg Tablet 325 Mg PO TID Docusate Sodium 100 Mg Capsule 100 Mg PO BID Humulin R U-500 Kwikpen (Insulin Regular, Human) 500 Unit/1 Ml Insuln.pen 10 Unit SQ TIDAC U-500 Voltaren (Diclofenac Sodium) 100 Gm Gel..gram. 100 Gm TP PRN QID PRN [place] 10-325 Tablet (Acetaminophen/Hydrocodone Bitart) 1 Each Tablet 1 Tab PO PRN Q6HRS PRN Levothyroxine Sodium 150 Mcg Tablet 150 Mcg PO DAILYAC Carvedilol (Carvedilol) 6.25 Mg Tablet 6.25 Mg PO BIDWMEALS Allergies Allergies: Coded Allergies: meperidine (Verified Allergy, Intermediate, 04/12/18) ROS Review of System As per HPI Physical Exam Physical Exam GENERAL: No apparent distress. HEENT: OM moist NECK: Supple LUNGS: Clear to auscultation. HEART: RRR, S1, S2 present ABDOMEN: Soft, NT, Obese EXTREMITIES: Trace edema. 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 Hx of CAD s/p CABG Stable HTN- BP stable Morbid obesity dm- oN iNSULIN Labs Labs Laboratory Tests Test 04/14/18 06:55 04/14/18 07:20 04/14/18 08:45 04/14/18 10:19 Sodium Level 138 mmol/L (136-145) Potassium Level 4.1 mmol/L (3.5-5.1) Chloride Level 99 mmol/L (98-107) Carbon Dioxide Level 26 mmol/L (21-32) Anion Gap 13 (6-14) Blood Urea Nitrogen 24 mg/dL (7-20) Creatinine 4.9 mg/dL (0.6-1.0) Estimated GFR (Cockcroft-Gault) 10.7 Glucose Level 342 mg/dL (70-99) Calcium Level 8.9 mg/dL (8.5-10.1) Glucose (Fingerstick) 282 mg/dL (70-99) 297 mg/dL (70-99) 311 mg/dL (70-99) Test 04/14/18 11:47 04/14/18 20:53 04/15/18 07:52 Glucose (Fingerstick) 284 mg/dL (70-99) 316 mg/dL (70-99) 366 mg/dL (70-99) Laboratory Tests Test 04/14/18 10:19 04/14/18 11:47 04/14/18 20:53 04/15/18 07:52 Glucose (Fingerstick) 311 mg/dL (70-99) 284 mg/dL (70-99) 316 mg/dL (70-99) 366 mg/dL (70-99) Review All relevant outside records, renal labs, imaging studies, telemetry/EKG's were reviewed. RANI ERICKSON MD Apr 15, 2018 09:15
--- NOTE | 2018-04-15 11:07 | PDOC ---
PROGRESS NOTES Chief Complaint Chief Complaint in HD now. no acute issues overnight. sugars elevated but not getting u500 insulin which is at home and we don't carry here. 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 abx per gen sx. HD today have requested patient's daughter bring U500 insulin to hospital as we do not have on formulary in pharmacy. sugars elevated immediate release insulin 10 units TID for now cont other home meds patient can be discharged home from medicine standpoint. resume home u500 insulin regimen upon return to home. thank you kindly for consult, TH will follow. Vitals Vitals Vital Signs Date Time Temp Pulse Resp B/P (MAP) Pulse Ox O2 Delivery O2 Flow Rate FiO2 04/15/18 08:01 Nasal Cannula 2.0 04/15/18 07:00 97.7 82 16 93/42 (59) 99 97.7 Physical Exam Lungs: Clear Labs LABS Laboratory Tests Test 04/14/18 11:47 04/14/18 20:53 04/15/18 07:52 Glucose (Fingerstick) 284 mg/dL (70-99) 316 mg/dL (70-99) 366 mg/dL (70-99) Comment Review of Relevant I have reviewed the following items filippo (where applicable) has been applied. Labs Laboratory Tests Test 04/14/18 06:55 04/14/18 07:20 04/14/18 08:45 04/14/18 10:19 Sodium Level 138 mmol/L (136-145) Potassium Level 4.1 mmol/L (3.5-5.1) Chloride Level 99 mmol/L (98-107) Carbon Dioxide Level 26 mmol/L (21-32) Anion Gap 13 (6-14) Blood Urea Nitrogen 24 mg/dL (7-20) Creatinine 4.9 mg/dL (0.6-1.0) Estimated GFR (Cockcroft-Gault) 10.7 Glucose Level 342 mg/dL (70-99) Calcium Level 8.9 mg/dL (8.5-10.1) Glucose (Fingerstick) 282 mg/dL (70-99) 297 mg/dL (70-99) 311 mg/dL (70-99) Test 04/14/18 11:47 04/14/18 20:53 04/15/18 07:52 Glucose (Fingerstick) 284 mg/dL (70-99) 316 mg/dL (70-99) 366 mg/dL (70-99) Laboratory Tests Test 04/14/18 11:47 04/14/18 20:53 04/15/18 07:52 Glucose (Fingerstick) 284 mg/dL (70-99) 316 mg/dL (70-99) 366 mg/dL (70-99) Medications Current Medications Cefazolin Sodium/ Dextrose 50 ml @ 100 mls/hr 1X PREOP PRN IV PRIOR TO PROCEDURE; Start 04/14/18 at 06:00; Stop 04/14/18 at 16:40; Status DC Ondansetron HCl (Zofran) 4 mg PRN Q6HRS PRN IV NAUSEA/VOMITING; Start 04/14/18 at 07:00; Stop 04/14/18 at 22:17; Status DC Fentanyl Citrate (Fentanyl 2ml Vial) 25 mcg PRN Q5MIN PRN IV MILD PAIN; Start 04/14/18 at 07:00; Stop 04/14/18 at 22:17; Status DC Fentanyl Citrate (Fentanyl 2ml Vial) 50 mcg PRN Q5MIN PRN IV MODERATE TO SEVERE PAIN Last administered on 04/14/18at 09:31; Start 04/14/18 at 07:00; Stop at 22:17; Status DC Morphine Sulfate (Morphine Sulfate) 1 mg PRN Q10MIN PRN IV SEVERE PAIN Last administered on 04/14/18at 09:58; Start 04/14/18 at 07:00; Stop 04/14/18 at 22:15; Status DC Ringer's Solution 1,000 ml @ 30 mls/hr Q24H IV ; Start 04/14/18 at 07:00; Stop 04/14/18 at 18:59; Status DC Lidocaine HCl (Xylocaine-Mpf 1% 2ml Vial) 2 ml PRN 1X PRN ID PRIOR TO IV START ; Start 04/14/18 at 07:00; Stop 04/14/18 at 22:17; Status DC Hydromorphone HCl (Dilaudid) 0.5 mg PRN Q10MIN PRN IV SEV PAIN, Second choice; Start 04/14/18 at 07:00; Stop 04/14/18 at 22:17; Status DC Prochlorperazine Edisylate (Compazine) 5 mg PACU PRN PRN IV NAUSEA, MRX1; Start 04/14/18 at 07:00; Stop 04/14/18 at 22:17; Status DC Albuterol/ Ipratropium (Duoneb) 3 ml 1X ONCE NEB Last administered on at 07:27; Start 04/14/18 at 07:00; Stop 04/14/18 at 07:01; Status DC Sodium Chloride 1,000 ml @ 30 mls/hr Q24H IV Last administered on 04/14/18at 07: 16; Start 04/14/18 at 07:15 Bupivacaine HCl/ Epinephrine Bitart (Sensorcain-Mpf Epi 0.5%-1:934128) 30 ml STK -MED ONCE .ROUTE ; Start 04/14/18 at 07:13; Stop 04/14/18 at 07:15; Status DC Lidocaine/ Epinephrine (LIDOCAINE 1%-EPI 1:100,000 Multi-Dose) 20 ml STK-MED ONCE .ROUTE ; Start 04/14/18 at 07:13; Stop 04/14/18 at 07:16; Status DC Succinylcholine Chloride (Anectine) 200 mg STK-MED ONCE .ROUTE ; Start 04/14/18 at 07:16; Stop 04/14/18 at 07:18; Status DC Insulin Human Lispro (HumaLOG VIAL) 6 unit 1X ONCE SQ Last administered on 04/14at 07:38; Start 04/14/18 at 07:30; Stop 04/14/18 at 07:31; Status DC Propofol 20 ml @ As Directed STK-MED ONCE IV ; Start 04/14/18 at 07:21; Stop 04/14 at 07:23; Status DC Lidocaine HCl (Lidocaine Pf 2% Vial) 5 ml STK-MED ONCE .ROUTE ; Start 04/14/18 at 07:21; Stop 04/14/18 at 07:23; Status DC Dexamethasone Sodium Phosphate (Decadron) 20 mg STK-MED ONCE .ROUTE ; Start 04/14 at 07:21; Stop 04/14/18 at 07:23; Status DC Ondansetron HCl (Zofran) 4 mg STK-MED ONCE .ROUTE ; Start 04/14/18 at 07:21; Stop 04/14/18 at 07:23; Status DC Fentanyl Citrate (Fentanyl 2ml Vial) 100 mcg STK-MED ONCE .ROUTE ; Start at 07:22; Stop 04/14/18 at 07:24; Status DC Ephedrine Sulfate (Akovaz) 50 mg STK-MED ONCE .ROUTE ; Start 04/14/18 at 07:52; Stop 04/14/18 at 07:54; Status DC Sevoflurane (Ultane) 30 ml STK-MED ONCE IH ; Start 04/14/18 at 08:07; Stop at 08:09; Status DC Sodium Chloride (Normal Saline Flush) 3 ml QSHIFT PRN IV AFTER MEDS AND BLOOD DRAWS; Start 04/14/18 at 08:45 Acetaminophen/ Hydrocodone Bitart (Lortab 5/325) 1 tab PRN Q4HRS PRN PO MILD PAIN Last administered on 04/14/18at 17:56; Start 04/14/18 at 08:45 Acetaminophen/ Hydrocodone Bitart (Lortab 5/325) 2 tab PRN Q4HRS PRN PO MODERATE PAIN, SEVERE PAIN; Start 04/14/18 at 08:45 Ondansetron HCl (Zofran) 4 mg PRN Q6HRS PRN IV NAUESA, 1ST CHOICE; Start at 08:45 Allopurinol (Zyloprim) 100 mg DAILY PO ; Start 04/14/18 at 09:00; Stop 04/14/18 at 23:47; Status DC Amoxicillin/ Clavulanate Potassium (Augmentin 875/ 125mg) 1 tab BID PO Last administered on 04/14/18at 12:40; Start 04/14/18 at 09:00; Stop 04/14/18 at 16:42; Status DC Aspirin (Children'S Aspirin) 81 mg DAILY PO ; Start 04/14/18 at 09:00 Atorvastatin Calcium (Lipitor) 20 mg HS PO Last administered on 04/14/18at 21:03 ; Start 04/14/18 at 21:00 Calcium Carbonate/ Glycine (Tums) 500 mg TIDAC PO Last administered on at 17:56; Start 04/14/18 at 11:30 Carvedilol (Coreg) 6.25 mg BIDWMEALS PO Last administered on 04/14/18at 21:03; Start 04/14/18 at 09:15 Cinacalcet (Sensipar) 30 mg DAILY PO ; Start 04/14/18 at 09:00; Stop 04/14/18 at 23:47; Status DC Diclofenac Sodium (Voltaren) 100 charan PRN QID PRN TP PAIN; Start 04/14/18 at 08: 45 Docusate Sodium (Colace) 100 mg BID PO Last administered on 04/14/18at 21:03; Start 04/14/18 at 09:00 Ferrous Sulfate (Feosol) 325 mg TIDWMEALS PO Last administered on 04/14/18at 12: 52; Start 04/14/18 at 12:00; Stop 04/14/18 at 16:49; Status DC Losartan Potassium (Cozaar) 25 mg DAILY PO ; Start 04/14/18 at 09:00; Stop at 09:14; Status DC Non-Formulary Medication (Albuterol Sulfate (Ventolin Hfa Inhaler)) 2 puff QID INH ; Start 04/14/18 at 09:00; Status UNV Non-Formulary Medication (Fluticasone/ Vilanterol (Breo Ellipta 100-25 Mcg Inh) ) 1 puff DAILY PRN IH daily; Start 04/14/18 at 08:45; Status UNV Insulin Human Lispro (HumaLOG) 10 units TIDWMEALS SQ Last administered on at 18:13; Start 04/14/18 at 12:00 Levothyroxine Sodium (Synthroid) 150 mcg DAILY06 PO Last administered on at 05:50; Start 04/14/18 at 10:30 Pantoprazole Sodium (Protonix) 40 mg DAILYAC PO ; Start 04/14/18 at 11:30 Insulin Human Lispro (HumaLOG VIAL) 4 unit 1X ONCE SQ Last administered on 04/14at 09:17; Start 04/14/18 at 09:00; Stop 04/14/18 at 09:14; Status DC Losartan Potassium (Cozaar) 25 mg DAILY PO ; Start 04/14/18 at 09:14 Albuterol Sulfate (Ventolin Neb Soln) 2.5 mg RTQID NEB Last administered on 04/15at 07:05; Start 04/14/18 at 12:00 Budesonide (Pulmicort) 0.5 mg RTBID NEB Last administered on 04/15/18at 07:05; Start 04/14/18 at 10:00 Insulin Human Lispro (HumaLOG VIAL) 10 unit 1X ONCE SQ Last administered on 04/14/18at 10:29; Start 04/14/18 at 10:30; Stop 04/14/18 at 10:31; Status DC Morphine Sulfate (Morphine Sulfate) 2 mg 1X ONCE IV Last administered on at 14:24; Start 04/14/18 at 14:15; Stop 04/14/18 at 14:19; Status DC Amoxicillin/ Clavulanate Potassium (Augmentin 500/ 125mg) 1 tab Q24H PO ; Start 04/15/18 at 09:00 Ferrous Sulfate (Feosol) 325 mg TID@1000,1400,2200 PO Last administered on at 21:03; Start 04/14/18 at 22:00 Insulin Human Lispro (HumaLOG) 0-7 UNITS TIDWMEALS SQ ; Start 04/15/18 at 08:00 Dextrose (Dextrose 50%-Water Syringe) 12.5 gm PRN Q15MIN PRN IV SEE COMMENTS; Start 04/15/18 at 01:45 Sodium Chloride 1,000 ml @ 1,000 mls/hr Q1H PRN IV hypotension; Start 04/15/18 at 09:01; Stop 04/15/18 at 15:00 Sodium Chloride 1,000 ml @ 400 mls/hr Q2H30M PRN IV PATENCY; Start 04/15/18 at 09:01; Stop 04/15/18 at 21:00 Info (PHARMACY MONITORING -- do not chart) 1 each PRN DAILY PRN MC SEE COMMENTS ; Start 04/15/18 at 09:15 Active Scripts Active Reported Augmentin 875-125 Tablet (Amoxicillin/Potassium Clav) 1 Each Tablet 1 Tab PO BID Protonix (Pantoprazole Sodium) 20 Mg Tablet.dr 40 Mg PO DAILY Lipitor (Atorvastatin Calcium) 20 Mg Tablet 20 Mg PO HS Aspirin 81 Mg Tab.chew 1 Tab PO DAILY Losartan Potassium 50 Mg Tablet 25 Mg PO DAILY Tums (Calcium Carbonate) 200 Mg Tab.chew 2 Tab PO TIDAC Breo Ellipta 100-25 Mcg Inh (Fluticasone/Vilanterol) 1 Each Aer.pow.ba 1 Puff IH DAILY PRN Ventolin Hfa Inhaler (Albuterol Sulfate) 18 Gm Hfa.aer.ad 2 Puff INH QID Ferrous Sulfate 325 Mg Tablet 325 Mg PO TID Docusate Sodium 100 Mg Capsule 100 Mg PO BID Humulin R U-500 Kwikpen (Insulin Regular, Human) 500 Unit/1 Ml Insuln.pen 10 Unit SQ TIDAC U-500 Voltaren (Diclofenac Sodium) 100 Gm Gel..gram. 100 Gm TP PRN QID PRN [place] 10-325 Tablet (Acetaminophen/Hydrocodone Bitart) 1 Each Tablet 1 Tab PO PRN Q6HRS PRN Levothyroxine Sodium 150 Mcg Tablet 150 Mcg PO DAILYAC Carvedilol (Carvedilol) 6.25 Mg Tablet 6.25 Mg PO BIDWMEALS Vitals/I & O Vital Sign - Last 24 Hours 04/14/18 04/14/18 04/14/18 04/14/18 11:15 11:18 11:30 11:45 Pulse 89 91 92 Resp 18 18 18 B/P (MAP) 131/63 (85) 131/66 (87) 131/65 (87) Pulse Ox 97 97 96 96 O2 Delivery Nasal Cannula Nasal Cannula Nasal Cannula Nasal Cannula O2 Flow Rate 3.0 2.0 3.0 3.0 04/14/18 04/14/18 04/14/18 04/14/18 12:00 12:30 12:43 12:46 Pulse 94 96 77 Resp 18 18 B/P (MAP) 137/53 (81) 124/64 (84) 138/63 Pulse Ox 95 95 97 O2 Delivery Nasal Cannula Nasal Cannula Nasal Cannula O2 Flow Rate 3.0 3.0 2.0 04/14/18 04/14/18 04/14/18 04/14/18 13:00 14:00 14:24 15:00 Pulse 94 91 88 Resp 18 18 18 B/P (MAP) 122/62 (82) 124/60 (81) 125/52 (76) Pulse Ox 94 95 94 O2 Delivery Nasal Cannula Nasal Cannula Nasal Cannula Nasal Cannula O2 Flow Rate 3.0 3.0 2.0 3.0 04/14/18 04/14/18 04/14/18 04/14/18 15:00 15:33 17:56 19:00 Temp 97.7 97.7 Pulse 86 Resp 18 B/P (MAP) 124/47 (72) Pulse Ox 94 92 O2 Delivery Nasal Cannula Nasal Cannula Nasal Cannula Room Air O2 Flow Rate 3.0 2.0 2.0 04/14/18 04/14/18 04/14/18 04/14/18 19:00 20:00 20:05 20:07 Pulse Ox 99 99 O2 Delivery Nasal Cannula Nasal Cannula Nasal Cannula Nasal Cannula O2 Flow Rate 2.0 3.0 2.0 2.0 04/14/18 04/14/18 04/15/18 04/15/18 21:03 23:00 03:00 07:00 Temp 97.6 98.0 97.7 97.6 98.0 97.7 Pulse 86 82 78 82 Resp 18 18 16 B/P (MAP) 124/47 112/45 (67) 92/37 (55) 93/42 (59) Pulse Ox 93 97 99 O2 Delivery Nasal Cannula Nasal Cannula Room Air O2 Flow Rate 2.0 2.0 04/15/18 04/15/18 07:06 08:01 O2 Delivery Nasal Cannula Nasal Cannula O2 Flow Rate 2.0 2.0 Intake and Output 04/14/18 04/14/18 04/15/18 15:01 23:01 07:01 Intake Total 160 ml Output Total 35 ml Balance 125 ml MILLI TRINH MD Apr 15, 2018 11:07
[2018-04-15] MEDS: ASPIRIN CHEWABLE 81 MG TABLET. PO SCH (13:08)
[2018-04-15] MEDS: DOCUSATE SODIUM 100 MG CAPSULE. PO SCH (13:08)
[2018-04-15] MEDS: FERROUS SULFATE 325 MG TABLET. PO SCH ×2 (13:08→13:15)
[2018-04-15] MEDS: HYDROcodone/APAP 5/325MG 1 TAB TABLET PO PRN (13:09)
--- NOTE | 2018-04-15 14:41 | NUR ---
Wound Care Wound care follow up to apply home vac. Teaching provided to pt and family, POD signed by pt. Pt will follow up in [facility] on Wednesday at 1130 and home health will provide other dressing changes on Wed and Wed.
--- NOTE | 2018-04-15 14:52 | NUR ---
SW following. Discussed with RN. Pt will need wound care and has a wound vac, pt would like [facility]. SW faxed referral. Pt has dialysis MWF and will be following with the wound care center at [facility] on Mondays. [facility], SW contacted [facility] who advised the do not do half-way care at home. Pt is discharging home today. No further SW needs. RN notified.
--- NOTE | 2018-04-15 15:07 | NUR ---
Pt was given all discharge instructions, follow up info, new prescriptions and teaching. Pt's Iv was removed. No tele. All belongings left with pt at time of discharge. Pts family at bedside during discharge instructions. Pt will follow up with wound care clinic on wednesday and with Dr. Degroot in 2 weeks at his office. WC ordered with [facility] for wound vac. Pt is stable. Alert x4. Pain script given to pt. Orders faxed to service. Pt left at 1435, via wheelchair, escorted by [facility].
[2018-04-15] MEDS ORDERED: LACTOBACILLUS RHAMNOSUS GG 1 CAPSULE. PO SCH (21:00)
== END 2018-04-15 14:35 | disposition home health service (06) ==
LOC: SURG 06:29 → 4 NORTH 09:57
PROVIDERS: ADMIT Surgery; ATTEND Surgery
DX: N61.1 Abscess of the breast and nipple (principal); E89.0 Postprocedural hypothyroidism; I12.0 Hypertensive chronic kidney disease with stage 5 chronic kidney disease or end stage renal disease; E11.22 Type 2 diabetes mellitus with diabetic chronic kidney disease; N18.6 End stage renal disease; I25.10 Atherosclerotic heart disease of native coronary artery without angina pectoris; D05.11 Intraductal carcinoma in situ of right breast; E66.01 Morbid (severe) obesity due to excess calories; J44.9 Chronic obstructive pulmonary disease, unspecified; Z79.4 Long term (current) use of insulin; Z99.2 Dependence on renal dialysis; Z95.1 Presence of aortocoronary bypass graft; Z82.49 Family history of ischemic heart disease and other diseases of the circulatory system; Z86.000 Personal history of in-situ neoplasm of breast
CPT/HCPCS: 19020; 36415; 80048; 82962; 94640; 94760; 96372; 96374; A7015; G0378; G0379; J0330; J0696; J1100; J1815; J2001; J2270; J2405; J2704; J3010; J7613; J7620; J7626; J3490; A4461

== ENCOUNTER → 2018-04-18 | Outpatient (CLI) | payer MEDICARE, OTHER ==
[2018-04-15 07:00] VITALS: BP 93/42
== END | disposition home or self-care (01) ==
LOC: PMGWOUND 10:46
PROVIDERS: ATTEND Emergency Medicine Undersea and Hyperbaric Medicine
DX: T81.89XD Other complications of procedures, not elsewhere classified, subsequent encounter (principal); N61.1 Abscess of the breast and nipple; I13.2 Hypertensive heart and chronic kidney disease with heart failure and with stage 5 chronic kidney disease, or end stage renal disease; E11.22 Type 2 diabetes mellitus with diabetic chronic kidney disease; I50.9 Heart failure, unspecified; N18.6 End stage renal disease; M10.9 Gout, unspecified; E07.9 Disorder of thyroid, unspecified; M19.90 Unspecified osteoarthritis, unspecified site; J44.9 Chronic obstructive pulmonary disease, unspecified; I25.10 Atherosclerotic heart disease of native coronary artery without angina pectoris; E66.01 Morbid (severe) obesity due to excess calories; Z68.34 Body mass index [BMI] 34.0-34.9, adult; Z99.2 Dependence on renal dialysis; Z79.4 Long term (current) use of insulin; Z87.891 Personal history of nicotine dependence; Z90.710 Acquired absence of both cervix and uterus; Y83.8 Other surgical procedures as the cause of abnormal reaction of the patient, or of later complication, without mention of misadventure at the time of the procedure
CPT/HCPCS: 97605

== ENCOUNTER → 2018-04-25 | Outpatient (CLI) | payer MEDICARE, OTHER ==
[2018-04-15 07:00] VITALS: BP 93/42
== END | disposition home or self-care (01) ==
LOC: PMGWOUND 10:42
PROVIDERS: ATTEND Emergency Medicine Undersea and Hyperbaric Medicine
DX: T81.31XD Disruption of external operation (surgical) wound, not elsewhere classified, subsequent encounter (principal); N61.1 Abscess of the breast and nipple; I13.2 Hypertensive heart and chronic kidney disease with heart failure and with stage 5 chronic kidney disease, or end stage renal disease; E11.22 Type 2 diabetes mellitus with diabetic chronic kidney disease; N18.6 End stage renal disease; I50.9 Heart failure, unspecified; M10.9 Gout, unspecified; E07.9 Disorder of thyroid, unspecified; J44.9 Chronic obstructive pulmonary disease, unspecified; M19.90 Unspecified osteoarthritis, unspecified site; I25.10 Atherosclerotic heart disease of native coronary artery without angina pectoris; E66.01 Morbid (severe) obesity due to excess calories; Z68.34 Body mass index [BMI] 34.0-34.9, adult; Z99.2 Dependence on renal dialysis; Z87.891 Personal history of nicotine dependence; Z79.4 Long term (current) use of insulin; Z90.710 Acquired absence of both cervix and uterus; Y83.8 Other surgical procedures as the cause of abnormal reaction of the patient, or of later complication, without mention of misadventure at the time of the procedure
CPT/HCPCS: 99214; G0463

== ENCOUNTER → 2018-05-02 | Outpatient (CLI) | payer MEDICARE, OTHER ==
[2018-04-15 07:00] VITALS: BP 93/42
[~2018-05-02] MED LIST changes: -CALC667T PO; +CALC667T4 PO
== END | disposition home or self-care (01) ==
LOC: PMGWOUND 11:01
PROVIDERS: ATTEND Emergency Medicine Undersea and Hyperbaric Medicine
DX: T81.89XD Other complications of procedures, not elsewhere classified, subsequent encounter (principal); N61.1 Abscess of the breast and nipple; I13.2 Hypertensive heart and chronic kidney disease with heart failure and with stage 5 chronic kidney disease, or end stage renal disease; E11.22 Type 2 diabetes mellitus with diabetic chronic kidney disease; I50.9 Heart failure, unspecified; N18.6 End stage renal disease; M10.9 Gout, unspecified; E07.9 Disorder of thyroid, unspecified; M19.90 Unspecified osteoarthritis, unspecified site; J44.9 Chronic obstructive pulmonary disease, unspecified; M81.0 Age-related osteoporosis without current pathological fracture; I25.10 Atherosclerotic heart disease of native coronary artery without angina pectoris; Z79.4 Long term (current) use of insulin; E66.01 Morbid (severe) obesity due to excess calories; Z68.34 Body mass index [BMI] 34.0-34.9, adult; Z99.2 Dependence on renal dialysis; Z87.891 Personal history of nicotine dependence; Z90.710 Acquired absence of both cervix and uterus; Y83.8 Other surgical procedures as the cause of abnormal reaction of the patient, or of later complication, without mention of misadventure at the time of the procedure
CPT/HCPCS: 99214; G0463

== ENCOUNTER → 2018-05-09 | Outpatient (CLI) | payer MEDICARE, OTHER ==
[2018-04-15 07:00] VITALS: BP 93/42
== END | disposition home or self-care (01) ==
LOC: PMGWOUND 10:43
PROVIDERS: ATTEND Preventive Medicine Undersea and Hyperbaric Medicine
DX: T81.89XD Other complications of procedures, not elsewhere classified, subsequent encounter (principal); N61.1 Abscess of the breast and nipple; I13.2 Hypertensive heart and chronic kidney disease with heart failure and with stage 5 chronic kidney disease, or end stage renal disease; E11.22 Type 2 diabetes mellitus with diabetic chronic kidney disease; N18.6 End stage renal disease; M10.9 Gout, unspecified; I50.9 Heart failure, unspecified; M19.90 Unspecified osteoarthritis, unspecified site; J44.9 Chronic obstructive pulmonary disease, unspecified; M81.0 Age-related osteoporosis without current pathological fracture; I25.10 Atherosclerotic heart disease of native coronary artery without angina pectoris; E07.9 Disorder of thyroid, unspecified; E66.01 Morbid (severe) obesity due to excess calories; Z68.34 Body mass index [BMI] 34.0-34.9, adult; Z99.2 Dependence on renal dialysis; Z79.4 Long term (current) use of insulin; Z87.891 Personal history of nicotine dependence; Z90.710 Acquired absence of both cervix and uterus; Y83.8 Other surgical procedures as the cause of abnormal reaction of the patient, or of later complication, without mention of misadventure at the time of the procedure
CPT/HCPCS: 99213; G0463

== ENCOUNTER → 2018-05-16 | Outpatient (CLI) | payer MEDICARE, OTHER | END | disposition home or self-care (01) | LOC: PMGWOUND 11:00 | PROVIDERS: ATTEND Emergency Medicine Undersea and Hyperbaric Medicine | DX: T81.89XD Other complications of procedures, not elsewhere classified, subsequent encounter (principal); N61.1 Abscess of the breast and nipple; I13.2 Hypertensive heart and chronic kidney disease with heart failure and with stage 5 chronic kidney disease, or end stage renal disease; E11.22 Type 2 diabetes mellitus with diabetic chronic kidney disease; I50.9 Heart failure, unspecified; N18.6 End stage renal disease; M10.9 Gout, unspecified; E07.9 Disorder of thyroid, unspecified; M19.90 Unspecified osteoarthritis, unspecified site; J44.9 Chronic obstructive pulmonary disease, unspecified; M81.0 Age-related osteoporosis without current pathological fracture; I25.10 Atherosclerotic heart disease of native coronary artery without angina pectoris; E66.01 Morbid (severe) obesity due to excess calories; Z68.34 Body mass index [BMI] 34.0-34.9, adult; Z99.2 Dependence on renal dialysis; Z79.4 Long term (current) use of insulin; Z87.891 Personal history of nicotine dependence; Z90.710 Acquired absence of both cervix and uterus | CPT/HCPCS: 99214; G0463 ==

== ENCOUNTER → 2018-05-31 | Outpatient (CLI) | payer MEDICARE, OTHER | END | disposition home or self-care (01) | LOC: PMGWOUND 12:00 | PROVIDERS: ATTEND Emergency Medicine Undersea and Hyperbaric Medicine | DX: T81.89XD Other complications of procedures, not elsewhere classified, subsequent encounter (principal); N61.1 Abscess of the breast and nipple; I13.2 Hypertensive heart and chronic kidney disease with heart failure and with stage 5 chronic kidney disease, or end stage renal disease; E11.22 Type 2 diabetes mellitus with diabetic chronic kidney disease; N18.6 End stage renal disease; I50.9 Heart failure, unspecified; M10.9 Gout, unspecified; E07.9 Disorder of thyroid, unspecified; M19.90 Unspecified osteoarthritis, unspecified site; J44.9 Chronic obstructive pulmonary disease, unspecified; M81.0 Age-related osteoporosis without current pathological fracture; I25.10 Atherosclerotic heart disease of native coronary artery without angina pectoris; E66.01 Morbid (severe) obesity due to excess calories; Z68.34 Body mass index [BMI] 34.0-34.9, adult; Z79.4 Long term (current) use of insulin; Z99.2 Dependence on renal dialysis; Z87.891 Personal history of nicotine dependence; Z90.10 Acquired absence of unspecified breast and nipple; Z90.710 Acquired absence of both cervix and uterus; Z95.1 Presence of aortocoronary bypass graft; Y83.8 Other surgical procedures as the cause of abnormal reaction of the patient, or of later complication, without mention of misadventure at the time of the procedure | CPT/HCPCS: 99213; G0463 ==

== ENCOUNTER → 2018-11-21 | Outpatient (CLI) | payer MEDICARE, OTHER ==
--- NOTE | 2018-11-21 16:20 | KCIC ---
Bone mineral density exam History: Takes thyroid medication, diabetes, hyperthyroidism Comparison: 01/23/2016 Findings: Bone mineral density examination utilizing DEXA was performed. Left hip bone mineral density of 0.778 g/cm2 corresponds with a T score -1.3, Z score -0.5. Compared with the previous exam, there has been -4.3% decrease. The bone mineral density of the lumbar spine was 0.932 g/cm2 which corresponds with a T-score of -1.0, Z score 0.3. There is been -4.2% decrease. By World [employer] on Osteoporosis criteria, a T score of 0 to-1 SD is considered to be within normal limits. A T score of -1 to -2.5 SD is considered osteopenia. A T score less than -2.5 SD is considered osteoporosis Impression: 1. There is osteopenia of the left hip. Mean bone mineral density of the lumbar spine is considered within normal limits although borderline osteopenia. Electronically signed by: Tin Hernandez MD (11/21/2018 4:17 PM) [id number]
== END | disposition home or self-care (01) ==
LOC: KCIC DEXA 11:26
PROVIDERS: ATTEND Physician Assistant Surgical
DX: M85.88 Other specified disorders of bone density and structure, other site (principal); E11.9 Type 2 diabetes mellitus without complications
CPT/HCPCS: 77080

== ENCOUNTER 2018-12-27 14:27 | Inpatient (IN) | payer MEDICARE, OTHER ==
[~2018-12-27] VITALS: Ht 165.1 cm; Wt 113.6 kg
--- NOTE | 2018-12-27 14:30 | NUR ---
Wound care Pt seen in the Outpt wound clinic for an initial visit re: a left hand wound. Per pt report, she removed her artificial nails herself, and a few days later she developed a wound on her left long finger that drained, then turned black. A few days after that, she developed a wound on her thumbnail that continued to travel toward the base of her thumb. Both wounds have been present approximately 1 month, per pt, her PCP stated she had gout. Dr. Dillon assessed, large pus filled blister on thumb was deroofed, culture obtained, and wound drained cloudy pink, purulent material. Base of wound has a greenish beauchamp hue, and base of nail is exposed, showing an open cavity under nailbed. Unable to further explore d/t significant pain in thumb. Orders received to admit pt, obtain MRI of hand, if possible, and request Vascular consult, as wounds are on same extremity as AV Fistula. Dr. Narayan agreeable to take admit, as pt's PCP, Helen Syed does not admit, Dr. Mendez deferred to IPC. L long finger painted with betadine and left LEYDI, L thumb dressed with Iodosorb impregnated vasoline gauze for antimicrobial effects, gauze and cotton roll. Pt sent to ED for Registration, POC discussed with DEBORAH Stephen, photos placed in pt's chart. Will continue to follow for wound care.
[2018-12-27 15:40] VITALS: BP 117/46
[2018-12-27] MEDS ORDERED: ZOLPIDEM 5 MG TABLET. PO PRN (16:30)
[2018-12-27] MEDS ORDERED: ACETAMINOPHEN 325 MG TABLET. PO PRN (16:30)
[2018-12-27] MEDS ORDERED: NON FORMULARY ITEM (Fluticasone/Vilanterol (Breo Ellipta 100-25 Mcg Inh) 1 PUFF) IH PRN (16:30)
[2018-12-27] MEDS ORDERED: DICLOFENAC SODIUM 1% TOPICAL GEL 100GM TUBE. TP PRN (16:30)
[2018-12-27] MEDS ORDERED: BISACODYL 10 MG SUPP.RECT. PR PRN (16:30)
[2018-12-27] MEDS ORDERED: cloNIDine HCL 0.1 MG TABLET PO PRN (16:30)
[2018-12-27] MEDS ORDERED: CALCIUM CARBONATE 500 MG TAB.CHEW PO PRN (16:30)
[2018-12-27] MEDS ORDERED: MAGNESIUM HYDROXIDE 2,400 MG/30 ML ORAL.SUSP. PO PRN (16:30)
[2018-12-27] MEDS ORDERED: MORPHINE SULFATE 2 MG/ML VIAL. IV PRN (16:30)
[2018-12-27] MEDS ORDERED: ONDANSETRON PF 4 MG/2 ML VIAL. IVP PRN (16:30)
--- NOTE | 2018-12-27 16:58 | PDOC1 ---
History and Physical Date of Admission Date of Admission DATE: 12/27/18 TIME: 16:51 Identification/Chief Complaint Chief Complaint left thumb wound- direct admit from wound care Source Source: Caregiver, Chart review, Patient History of Present Illness History of Present Illness 68 AA female, ESRD MWFD, HX cABG, DM 2 uncontrolled (BS high at home per her acct), HTN, COPD, obese, hypothyroid, direct admit from wound care (Dr Dillon's office) bec of left thumb wound that was unroofed in clinic and could not say how deep the infection goes so advised admission, She is raw and tender there (i undressed), the left middle thinger too, she kind of manipulated but is an eschar formation there and looks dry, SHe is a vasculopath, high risk with uncontrolled DM but denies hx osteo in past, She also has halithosis, Admitted henceforth with no imaging on labs yet at baseline. She lives at home and uses a walker Past Medical History Cardiovascular: CAD, HTN, Hyperlipidemia Heme/Onc: Anemia NOS Renal/: Chronic renal insuff Endocrine: Diabetes, Hypothyroidism Past Surgical History Past Surgical History: CABG Family History Family History: Hypertension Social History Smoke: No ALCOHOL: none Drugs: None Current Medications Current Medications Current Medications Ondansetron HCl (Zofran) 4 mg PRN Q6HRS PRN IV NAUSEA/VOMITING; Start 12/27/18 at 16:30 Calcium Carbonate/ Glycine (Tums) 500 mg PRN Q3HRS PRN PO UPSET STOMACH; Start 12/27/18 at 16:30 Zolpidem Tartrate (Ambien) 5 mg PRN QHS PRN PO INSOMNIA, MAY REPEAT IN 1HR; Start 12/27/18 at 16:30 Oxycodone HCl (Roxicodone) 5 mg PRN Q3HRS PRN PO BREAKTHROUGH PAIN; Start 12/27/18 at 16:30 Morphine Sulfate (Morphine Sulfate) 1 mg PRN Q1HR PRN IV PAIN; Start 12/27/18 at 16:30; Stop 12/27/18 at 16:39; Status DC Acetaminophen (Tylenol) 650 mg PRN Q6HRS PRN PO Headaches, Temp > 101.5F; Start 12/27/18 at 16:30 Docusate Sodium (Colace) 100 mg BID PO ; Start 12/27/18 at 21:00 Magnesium Hydroxide (Milk Of Magnesia) 2,400 mg PRN Q12HR PRN PO CONSTIPATION; Start 12/27/18 at 16:30 Bisacodyl (Dulcolax Supp) 10 mg PRN DAILY PRN MO CONSTIPATION; Start 12/27/18 at 16:30 Ondansetron HCl (Zofran) 4 mg PRN Q6HRS PRN IVP NAUSEA/VOMITING; Start 12/27/18 at 16:30 Clonidine HCl (Catapres) 0.1 mg PRN Q1HR PRN PO HYPERTENSION; Start 12/27/18 at 16:30 Aspirin (Children'S Aspirin) 81 mg DAILY PO ; Start 12/28/18 at 09:00 Atorvastatin Calcium (Lipitor) 20 mg HS PO ; Start 12/27/18 at 21:00 Carvedilol (Coreg) 6.25 mg BIDWMEALS PO ; Start 12/27/18 at 17:00 Diclofenac Sodium (Voltaren) 100 charan PRN QID PRN TP PAIN; Start 12/27/18 at 16:30 Ferrous Sulfate (Feosol) 325 mg TIDWMEALS PO ; Start 12/27/18 at 17:00 Acetaminophen/ Hydrocodone Bitart (Lortab 10/325) 1 tab PRN Q6HRS PRN PO PAIN; Start 12/27/18 at 16:30 Levothyroxine Sodium (Synthroid) 150 mcg DAILYAC PO ; Start 12/28/18 at 07:30 Losartan Potassium (Cozaar) 25 mg DAILY PO ; Start 12/28/18 at 09:00 Non-Formulary Medication (Albuterol Sulfate (Ventolin Hfa Inhaler)) 2 puff QID INH ; Start 12/27/18 at 17:00; Status UNV Non-Formulary Medication (Fluticasone/ Vilanterol (Breo Ellipta 100-25 Mcg Inh)) 1 puff DAILY PRN IH daily; Start 12/27/18 at 16:30; Status UNV Non-Formulary Medication (Insulin Regular, Human (Humulin R U-500 Kwikpen)) 10 unit TIDAC SQ ; Start 12/27/18 at 16:30; Status UNV Pantoprazole Sodium (Protonix) 40 mg DAILYAC PO ; Start 12/28/18 at 07:30 Albuterol Sulfate (Ventolin Neb Soln) 2.5 mg RTQID NEB ; Start 12/27/18 at 20:00 Budesonide (Pulmicort) 0.5 mg RTBID NEB ; Start 12/27/18 at 20:00 Morphine Sulfate (Morphine Sulfate) 2 mg PRN Q2HR PRN IV PAIN; Start 12/27/18 at 16:45; Status UNV Active Scripts Active Reported Augmentin 875-125 Tablet (Amoxicillin/Potassium Clav) 1 Each Tablet 1 Tab PO BID Protonix (Pantoprazole Sodium) 20 Mg Tablet.dr 40 Mg PO DAILY Lipitor (Atorvastatin Calcium) 20 Mg Tablet 20 Mg PO HS Aspirin 81 Mg Tab.chew 1 Tab PO DAILY Losartan Potassium 50 Mg Tablet 25 Mg PO DAILY Tums (Calcium Carbonate) 200 Mg Tab.chew 2 Tab PO TIDAC Breo Ellipta 100-25 Mcg Inh (Fluticasone/Vilanterol) 1 Each Aer.pow.ba 1 Puff IH DAILY PRN Ventolin Hfa Inhaler (Albuterol Sulfate) 18 Gm Hfa.aer.ad 2 Puff INH QID Ferrous Sulfate 325 Mg Tablet 325 Mg PO TID Docusate Sodium 100 Mg Capsule 100 Mg PO BID Humulin R U-500 Kwikpen (Insulin Regular, Human) 500 Unit/1 Ml Insuln.pen 10 Unit SQ TIDAC U-500 Voltaren (Diclofenac Sodium) 100 Gm Gel..gram. 100 Gm TP PRN QID PRN [place] 10-325 Tablet (Acetaminophen/Hydrocodone Bitart) 1 Each Tablet 1 Tab PO PRN Q6HRS PRN Levothyroxine Sodium 150 Mcg Tablet 150 Mcg PO DAILYAC Carvedilol (Carvedilol) 6.25 Mg Tablet 6.25 Mg PO BIDWMEALS Allergies Allergies: Coded Allergies: meperidine (Verified Allergy, Intermediate, 04/12/18) ROS Review of System as per HPI, all else is neg Physical Exam General: Alert, Oriented X3, Cooperative, No acute distress HEENT: PERRLA Lungs: Normal air movement, Other (SCE< dec BS sec to poor effort and inc AP diam) Heart: S1S2, RRR, no thrills, no rubs, no gallops, no murmurs Cardiovascular: S1, S2 Abdomen: Normal bowel sounds, Soft, No tenderness, No hepatosplenomegaly, No masses Rectal Exam: not examined PELVIC: Nml ext genitalia Extremities: No clubbing, No cyanosis, Normal pulses, Other (chronic plus 2-3 edema) Skin: Other (left thumb has exposed dermis, unroffed, raw, tender, pinkish to reddish ; left middle finger has eschar formation) Neuro: Normal gait, Normal speech, Strength at 5/5 X4 ext, Normal tone, Sensation intact, Cranial nerves 3-12 NL, Reflexes 2+ Psych/Mental Status: Mental status NL, Mood NL Vitals Vitals Vital Signs Date Time Temp Pulse Resp B/P (MAP) Pulse Ox O2 Delivery O2 Flow Rate FiO2 12/27/18 15:40 97.8 90 16 117/46 (69) 99 Nasal Cannula 2.0 97.8 VTE Prophylaxis Ordered VTE Prophylaxis Devices: Yes VTE Pharmacological Prophylaxi: Yes Assessment/Plan Assessment/Plan 1. Cellulitis left thumb, unroofed at Wound clinic, r.o osteo 2. LEft third middle finger resolving cellultis (reported self manipulation ) with eschar formation 3. ESRD MWF HD 4. AOCD 4. MAXIMILIAN< Obesity, hypothyroidism, HTN, CAD hx, lipids- chronic stable 5. DM 2 uncontroled - on OHA plus insulin -c heck [id number] 6. Indwelling ICD PLAN: 2 MN, ID wound care consults med surg floor PT/.OT Resume home meds Add esr check [id number] Empric abx HD per renal Xray hand FULL CODE Dw her and dtr KIMBERLY LOPEZ MD Dec 27, 2018 16:58
[2018-12-27] MEDS ORDERED: NON FORMULARY ITEM (Albuterol Sulfate (Ventolin Hfa Inhaler) 2 PUFF) INH SCH (17:00)
[2018-12-27] MEDS ORDERED: VANCOMYCIN 1.5 GM in IV NORMAL SALINE 500ML BAG 500 ML IV ONE (17:30)
[2018-12-27] MEDS: CEFEPIME HCL IV Push 1 GM VIAL. IVP SCH (17:59)
[2018-12-27] MEDS: INSULIN LISPRO 300 UNITS/3 ML VIAL. SQ SCH (18:20)
[2018-12-27] MEDS: FERROUS SULFATE 325 MG TABLET. PO SCH (18:22)
[2018-12-27] MEDS: oxyCODONE IR 5 MG TABLET PO PRN (18:23)
[2018-12-27] MEDS: CARVEDILOL 6.25 MG TABLET. PO SCH (18:23)
[2018-12-27] MEDS: VANCOMYCIN PER PHARMACY MC PRN ×2 (18:34→18:58)
--- NOTE | 2018-12-27 18:57 | NUR ---
Pharmacy Vancomycin Dosing Note S:Consulted to monitor and dose vancomycin started 12/27/18. O:TIM TREVINO is a 68 year old M with Cellulitis . Height: 5 feet, 5 inches Weight: 109.245639 kg [place] Body Weight: 57.00 Adjusted Body Weight: 78.20 Dosing Weight: Actual Other Antibiotics: Cefepime 1gm IVP q24hr LABS: Last BUN: Last Creatinine: Creatinine Clearance: HD -W- mL/min Last WBC: Last Procalcitonin: Tmax (past 24 hours): 97.8 Microbiology: I/O: Drug Levels: Last level: on at Last dose given 12/27/18 at 1802 Vancomycin Dosing: Loading Dose: 1500 mg x1 Dosing Weight: Actual Target Trough: 10-20 A: Based on weight and Dialysis status: P: 1. Give Vancomycin 1500mg X1 2. Follow up Random level on 12/28/18 at 0600 3. Pharmacy will continue to monitor, follow and adjust therapy as needed. Yemi Kaur, [facility], 12/27/18 [id number]
[2018-12-27 19:00] VITALS: BP 123/35
[2018-12-27] MEDS: BUDESONIDE 0.5 MG/2 ML NEBU. NEB SCH (19:46)
[2018-12-27] MEDS: ALBUTEROL SULFATE 2.5 MG/3 ML NEBU. NEB SCH (19:46)
--- NOTE | 2018-12-27 21:00 | NUR ---
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
[2018-12-27] MEDS: ATORVASTATIN CALCIUM 20 MG TABLET PO SCH (21:08)
[2018-12-27] MEDS: DOCUSATE SODIUM 100 MG CAPSULE. PO SCH (21:08)
[2018-12-27 23:00] VITALS: BP 104/52
[2018-12-28 03:00] VITALS: BP 126/53
[2018-12-28 05:13] LABS: BASO # 0.1 x10^3/uL (0.0-0.2); BASO % 1 % (0-3); EOS # 0.1 x10^3/uL (0.0-0.7); EOS % 1 % (0-3); HEMATOCRIT 34.9 % (39.0-53.0); HEMOGLOBIN 10.5 g/dL (13.0-17.5); LYMPH # 1.2 x10^3/uL (1.0-4.8); LYMPH % 7 % (24-48); MEAN CORPUSCULAR HEMOGLOBIN 32 pg (25-35); MEAN CORPUSCULAR HGB CONC 30 g/dL (31-37); MEAN CORPUSCULAR VOLUME 105 fL (79-100); MONO # 0.7 x10^3/uL (0.0-1.1); MONO % 5 % (0-9); NEUT % 87 % (31-73); PLATELET COUNT 321 x10^3/uL (140-400); RED BLOOD COUNT 3.33 x10^6/uL (4.30-5.70); WHITE BLOOD COUNT 16.1 x10^3/uL (4.0-11.0)
[2018-12-28 05:14] LABS: PROTHROMBIN TIME PATIENT 15.9 SEC (11.7-14.0)
[2018-12-28 05:17] LABS: CALCIUM 7.8 mg/dL (8.5-10.1); GFR 8.1
[2018-12-28 05:23] LABS: POTASSIUM 6.2 mmol/L (3.5-5.1)
[2018-12-28] MEDS ORDERED: SODIUM POLYSTYRENE SULFON/SORB 15 GM/60 ML ORAL.SUSP PO ONE (05:45)
[2018-12-28] MEDS ORDERED: VANCOMYCIN RANDOM LEVEL. MC ONE (06:00)
[2018-12-28 07:00] VITALS: BP 116/53
[2018-12-28] MEDS: ALBUTEROL SULFATE 2.5 MG/3 ML NEBU. NEB SCH ×4 (07:17→19:45)
[2018-12-28] MEDS: BUDESONIDE 0.5 MG/2 ML NEBU. NEB SCH ×2 (07:17→19:45)
[2018-12-28] MEDS: CARVEDILOL 6.25 MG TABLET. PO SCH ×2 (08:00→16:45)
[2018-12-28] MEDS ORDERED: IV NORMAL SALINE 1000ML BAG 1,000 ML IV PRN ×2 (08:10)
[2018-12-28] MEDS: DOCUSATE SODIUM 100 MG CAPSULE. PO SCH ×2 (08:11→20:57)
[2018-12-28] MEDS: LEVOTHYROXINE 150 MCG TABLET PO SCH (08:11)
[2018-12-28] MEDS: PANTOPRAZOLE 40 MG TABLET.DR. PO SCH (08:11)
[2018-12-28] MEDS: ASPIRIN CHEWABLE 81 MG TABLET. PO SCH (08:11)
[2018-12-28] MEDS: FERROUS SULFATE 325 MG TABLET. PO SCH ×3 (08:12→16:46)
[2018-12-28] MEDS ORDERED: ACETAMINOPHEN 500 MG TABLET PO PRN (08:15)
[2018-12-28] MEDS ORDERED: diphenhydrAMINE 50 MG/ML VIAL IV PRN ×2 (08:15)
[2018-12-28] MEDS ORDERED: DIALYSIS PATIENT. MC PRN (08:15)
[2018-12-28] MEDS: INSULIN LISPRO 300 UNITS/3 ML VIAL. SQ SCH ×3 (08:15→17:42)
[2018-12-28] MEDS ORDERED: ALBUMIN HUMAN 25% 200 ML IV PRN (08:15)
[2018-12-28] MEDS: VANCOMYCIN PER PHARMACY MC PRN ×3 (08:17→14:31)
--- NOTE | 2018-12-28 08:56 | NUR ---
Pharmacy Vancomycin Dosing Note S:Consulted to monitor and dose vancomycin started 12/27/18. O:TIM TREVINO is a 68 year old M with Cellulitis . Height: 5 feet, 5 inches Weight: 109.256308 kg [place] Body Weight: 57.00 Adjusted Body Weight: 78.20 Dosing Weight: Actual Other Antibiotics: Cefepime 1gm IVP q24hr LABS: Last BUN: Last Creatinine: 8.0 Creatinine Clearance: HD -W- mL/min Last WBC: Last Procalcitonin: Tmax (past 24 hours): 97.8 Microbiology: I/O: Drug Levels: Last Random level: 24.1 on 12/28/18 at 0330 Last dose given 12/27/18 at 1802 Vancomycin Dosing: Loading Dose: 1500 mg x1 Dosing Weight: Actual Target Trough: 10-20 A: Based on: RANDOM LEVEL THIS MORNING (24.9), POST DIALYSIS WOULD BE AROUND 18.7 P: 1. Begin Vancomycin IV 500MG AFTER DIALYSIS BEGIN ON SATURDAY 12/30 2. Follow up Random level NEEDED 3. Pharmacy will continue to monitor, follow and adjust therapy as needed. ANTHONY CORRALES [facility], 12/28/18 [id number]
[2018-12-28] MEDS: LOSARTAN POTASSIUM 50 MG TABLET. PO SCH (09:00)
--- NOTE | 2018-12-28 09:21 | PDOC ---
PROGRESS NOTES Chief Complaint Chief Complaint 1. Cellulitis left thumb, unroofed at Wound clinic, r.o osteo 2. LEft third middle finger resolving cellultis (reported self manipulation ) with eschar formation 3. ESRD MWF HD 4. AOCD 4. MAXIMILIAN< Obesity, hypothyroidism, HTN, CAD hx, lipids- chronic stable 5. DM 2 uncontroled - on OHA plus insulin -c heck hgba1c 6. Indwelling ICD History of Present Illness History of Present Illness K high 6 plus today but she is due HD today HAving TSB by family members STill waiting on ID to see pt LAbs: ESR 61, WBC 16 no fevers no overnight calls I examined wound, raw, very tender (Was unroofed by Dr Hernandez at wound care yesterday) - and he advised admission - unsure how deep infection was Xray done but read still pending BS 200s- on OHA plus insulin ON vanc and rocephin PLAN: COnt current IV abx till ID rounds WOund care MOnitor nicky further hypergylcemia - i will adjust coverage accdgly HD per renal - due today FUll code dw many pleasant family members at bedside Vitals Vitals Vital Signs Date Time Temp Pulse Resp B/P (MAP) Pulse Ox O2 Delivery O2 Flow Rate FiO2 12/28/18 07:19 98 Nasal Cannula 2.0 12/28/18 07:00 97.8 85 17 116/53 (74) 97.8 Physical Exam General: Alert, Oriented X3, Cooperative, No acute distress Lungs: Clear Abdomen: Normal bowel sounds, Soft, No tenderness, No hepatosplenomegaly, No masses Extremities: No clubbing, No cyanosis, Normal pulses, Other (chronic plus 2-3 edema) Skin: Other (left thumb has exposed dermis, unroffed, raw, tender, pinkish to reddish ; left middle finger has eschar formation) Labs LABS Laboratory Tests Test 12/27/18 17:01 12/27/18 21:28 12/28/18 03:35 Glucose (Fingerstick) 292 mg/dL (70-99) 242 mg/dL (70-99) White Blood Count 16.1 x10^3/uL (4.0-11.0) Red Blood Count 3.33 x10^6/uL (4.30-5.70) Hemoglobin 10.5 g/dL (13.0-17.5) Hematocrit 34.9 % (39.0-53.0) Mean Corpuscular Volume 105 fL (79-100) Mean Corpuscular Hemoglobin 32 pg (25-35) Mean Corpuscular Hemoglobin Concent 30 g/dL (31-37) Red Cell Distribution Width 16.0 % (11.5-14.5) Platelet Count 321 x10^3/uL (140-400) Neutrophils (%) (Auto) 87 % (31-73) Lymphocytes (%) (Auto) 7 % (24-48) Monocytes (%) (Auto) 5 % (0-9) Eosinophils (%) (Auto) 1 % (0-3) Basophils (%) (Auto) 1 % (0-3) Neutrophils # (Auto) 14.0 x10^3/uL (1.8-7.7) Lymphocytes # (Auto) 1.2 x10^3/uL (1.0-4.8) Monocytes # (Auto) 0.7 x10^3/uL (0.0-1.1) Eosinophils # (Auto) 0.1 x10^3/uL (0.0-0.7) Basophils # (Auto) 0.1 x10^3/uL (0.0-0.2) Erythrocyte Sedimentation Rate 61 (0-15) Prothrombin Time 15.9 SEC (11.7-14.0) Prothromb Time International Ratio 1.3 (0.8-1.1) Sodium Level 136 mmol/L (136-145) Potassium Level 6.2 mmol/L (3.5-5.1) Chloride Level 100 mmol/L (98-107) Carbon Dioxide Level 23 mmol/L (21-32) Anion Gap 13 (6-14) Blood Urea Nitrogen 42 mg/dL (8-26) Creatinine 8.0 mg/dL (0.7-1.3) Estimated GFR (Cockcroft-Gault) 8.1 Glucose Level 280 mg/dL (70-99) Calcium Level 7.8 mg/dL (8.5-10.1) Random Vancomycin Level 24.1 mcg/mL Review of Systems Review of Systems tender finger, all else is neg, 14 pt Comment Review of Relevant I have reviewed the following items filippo (where applicable) has been applied. Labs Laboratory Tests Test 12/27/18 17:01 12/27/18 21:28 12/28/18 03:35 Glucose (Fingerstick) 292 mg/dL (70-99) 242 mg/dL (70-99) White Blood Count 16.1 x10^3/uL (4.0-11.0) Red Blood Count 3.33 x10^6/uL (4.30-5.70) Hemoglobin 10.5 g/dL (13.0-17.5) Hematocrit 34.9 % (39.0-53.0) Mean Corpuscular Volume 105 fL (79-100) Mean Corpuscular Hemoglobin 32 pg (25-35) Mean Corpuscular Hemoglobin Concent 30 g/dL (31-37) Red Cell Distribution Width 16.0 % (11.5-14.5) Platelet Count 321 x10^3/uL (140-400) Neutrophils (%) (Auto) 87 % (31-73) Lymphocytes (%) (Auto) 7 % (24-48) Monocytes (%) (Auto) 5 % (0-9) Eosinophils (%) (Auto) 1 % (0-3) Basophils (%) (Auto) 1 % (0-3) Neutrophils # (Auto) 14.0 x10^3/uL (1.8-7.7) Lymphocytes # (Auto) 1.2 x10^3/uL (1.0-4.8) Monocytes # (Auto) 0.7 x10^3/uL (0.0-1.1) Eosinophils # (Auto) 0.1 x10^3/uL (0.0-0.7) Basophils # (Auto) 0.1 x10^3/uL (0.0-0.2) Erythrocyte Sedimentation Rate 61 (0-15) Prothrombin Time 15.9 SEC (11.7-14.0) Prothromb Time International Ratio 1.3 (0.8-1.1) Sodium Level 136 mmol/L (136-145) Potassium Level 6.2 mmol/L (3.5-5.1) Chloride Level 100 mmol/L (98-107) Carbon Dioxide Level 23 mmol/L (21-32) Anion Gap 13 (6-14) Blood Urea Nitrogen 42 mg/dL (8-26) Creatinine 8.0 mg/dL (0.7-1.3) Estimated GFR (Cockcroft-Gault) 8.1 Glucose Level 280 mg/dL (70-99) Calcium Level 7.8 mg/dL (8.5-10.1) Random Vancomycin Level 24.1 mcg/mL Laboratory Tests Test 12/27/18 17:01 12/27/18 21:28 12/28/18 03:35 Glucose (Fingerstick) 292 mg/dL (70-99) 242 mg/dL (70-99) White Blood Count 16.1 x10^3/uL (4.0-11.0) Red Blood Count 3.33 x10^6/uL (4.30-5.70) Hemoglobin 10.5 g/dL (13.0-17.5) Hematocrit 34.9 % (39.0-53.0) Mean Corpuscular Volume 105 fL (79-100) Mean Corpuscular Hemoglobin 32 pg (25-35) Mean Corpuscular Hemoglobin Concent 30 g/dL (31-37) Red Cell Distribution Width 16.0 % (11.5-14.5) Platelet Count 321 x10^3/uL (140-400) Neutrophils (%) (Auto) 87 % (31-73) Lymphocytes (%) (Auto) 7 % (24-48) Monocytes (%) (Auto) 5 % (0-9) Eosinophils (%) (Auto) 1 % (0-3) Basophils (%) (Auto) 1 % (0-3) Neutrophils # (Auto) 14.0 x10^3/uL (1.8-7.7) Lymphocytes # (Auto) 1.2 x10^3/uL (1.0-4.8) Monocytes # (Auto) 0.7 x10^3/uL (0.0-1.1) Eosinophils # (Auto) 0.1 x10^3/uL (0.0-0.7) Basophils # (Auto) 0.1 x10^3/uL (0.0-0.2) Erythrocyte Sedimentation Rate 61 (0-15) Prothrombin Time 15.9 SEC (11.7-14.0) Prothromb Time International Ratio 1.3 (0.8-1.1) Sodium Level 136 mmol/L (136-145) Potassium Level 6.2 mmol/L (3.5-5.1) Chloride Level 100 mmol/L (98-107) Carbon Dioxide Level 23 mmol/L (21-32) Anion Gap 13 (6-14) Blood Urea Nitrogen 42 mg/dL (8-26) Creatinine 8.0 mg/dL (0.7-1.3) Estimated GFR (Cockcroft-Gault) 8.1 Glucose Level 280 mg/dL (70-99) Calcium Level 7.8 mg/dL (8.5-10.1) Random Vancomycin Level 24.1 mcg/mL Medications Current Medications Ondansetron HCl (Zofran) 4 mg PRN Q6HRS PRN IV NAUSEA/VOMITING; Start 12/27/18 at 16:30 Calcium Carbonate/ Glycine (Tums) 500 mg PRN Q3HRS PRN PO UPSET STOMACH; Start 12/27/18 at 16:30 Zolpidem Tartrate (Ambien) 5 mg PRN QHS PRN PO INSOMNIA, MAY REPEAT IN 1HR; Start 12/27/18 at 16:30 Oxycodone HCl (Roxicodone) 5 mg PRN Q3HRS PRN PO BREAKTHROUGH PAIN Last administered on 12/27/18at 18:23; Start 12/27/18 at 16:30 Morphine Sulfate (Morphine Sulfate) 1 mg PRN Q1HR PRN IV PAIN; Start 12/27/18 at 16:30; Stop 12/27/18 at 16:39; Status DC Acetaminophen (Tylenol) 650 mg PRN Q6HRS PRN PO Headaches, Temp > 101.5F; Start 12/27/18 at 16:30 Docusate Sodium (Colace) 100 mg BID PO Last administered on 12/28/18at 08:11; Start 12/27/18 at 21:00 Magnesium Hydroxide (Milk Of Magnesia) 2,400 mg PRN Q12HR PRN PO CONSTIPATION; Start 12/27/18 at 16:30 Bisacodyl (Dulcolax Supp) 10 mg PRN DAILY PRN [place] CONSTIPATION; Start 12/27/18 at 16:30 Ondansetron HCl (Zofran) 4 mg PRN Q6HRS PRN IVP NAUSEA/VOMITING; Start 12/27/18 at 16:30 Clonidine HCl (Catapres) 0.1 mg PRN Q1HR PRN PO HYPERTENSION; Start 12/27/18 at 16:30 Aspirin (Children'S Aspirin) 81 mg DAILY PO Last administered on 12/28/18 08:11; Start 12/28/18 at 09:00 Atorvastatin Calcium (Lipitor) 20 mg HS PO Last administered on 12/27/18at 21:08; Start 12/27/18 at 21:00 Carvedilol (Coreg) 6.25 mg BIDWMEALS PO Last administered on 12/27/18at 18:23; Start 12/27/18 at 17:00 Diclofenac Sodium (Voltaren) 100 charan PRN QID PRN TP PAIN; Start 12/27/18 at 16:30 Ferrous Sulfate (Feosol) 325 mg TIDWMEALS PO Last administered on 12/28/18at 08:12; Start 12/27/18 at 17:00 Acetaminophen/ Hydrocodone Bitart (Lortab 10/325) 1 tab PRN Q6HRS PRN PO PAIN; Start 12/27/18 at 16:30 Levothyroxine Sodium (Synthroid) 150 mcg DAILYAC PO Last administered on 12/28/18at 08:11; Start 12/28/18 at 07:30 Losartan Potassium (Cozaar) 25 mg DAILY PO ; Start 12/28/18 at 09:00 Non-Formulary Medication (Albuterol Sulfate (Ventolin Hfa Inhaler)) 2 puff QID INH ; Start 12/27/18 at 17:00; Status UNV Non-Formulary Medication (Fluticasone/ Vilanterol (Breo Ellipta 100-25 Mcg Inh)) 1 puff DAILY PRN IH daily; Start 12/27/18 at 16:30; Status UNV Insulin Human Lispro (HumaLOG) 10 units TIDWMEALS SQ Last administered on 12/28/18 08:15; Start 12/27/18 at 17:30 Pantoprazole Sodium (Protonix) 40 mg DAILYAC PO Last administered on 12/28/18at 08:11; Start 12/28/18 at 07:30 Albuterol Sulfate (Ventolin Neb Soln) 2.5 mg RTQID NEB Last administered on 12/28/18at 07:17; Start 12/27/18 at 20:00 Budesonide (Pulmicort) 0.5 mg RTBID NEB Last administered on 12/28/18at 07:17; Start 12/27/18 at 20:00 Morphine Sulfate (Morphine Sulfate) 2 mg PRN Q2HR PRN IV PAIN; Start 12/27/18 at 16:45 Cefepime HCl (Maxipime) 1 gm Q24H IVP Last administered on 12/27/18at 17:59; Start 12/27/18 at 18:00 Vancomycin HCl (Vanco Per Pharmacy) 1 each PRN DAILY PRN MC SEE COMMENTS Last administered on 12/28/18at 08:20; Start 12/27/18 at 17:15 Vancomycin HCl 1.5 gm/Sodium Chloride 500 ml @ 250 mls/hr 1X ONCE IV Last administered on 12/27/18at 18:02; Start 12/27/18 at 17:30; Stop 12/27/18 at 19:29; Status DC Vancomycin HCl (Vancomycin Random Level) 1 each 1X ONCE MC Last administered on 12/28/18at 06:00; Start 12/28/18 at 06:00; Stop 12/28/18 at 06:01; Status DC Sodium Polystyrene Sulfonate (Kayexalate) 15 gm 1X ONCE PO Last administered on 12/28/18at 05:57; Start 12/28/18 at 05:45; Stop 12/28/18 at 05:46; Status DC Sodium Chloride 1,000 ml @ 1,000 mls/hr Q1H PRN IV hypotension; Start 12/28/18 at 08:10; Stop 12/28/18 at 14:09 Albumin Human 200 ml @ 200 mls/hr 1X PRN PRN IV Hypotension; Start 12/28/18 at 08:15; Stop 12/28/18 at 14:14 Acetaminophen (Tylenol) 500 mg 1X PRN PRN PO MILD PAIN / TEMP; Start 12/28/18 at 08:15; Stop 12/29/18 at 08:14 Diphenhydramine HCl (Benadryl) 25 mg 1X PRN PRN IV ITCHING; Start 12/28/18 at 08:15; Stop 12/29/18 at 08:14 Diphenhydramine HCl (Benadryl) 25 mg 1X PRN PRN IV ITCHING; Start 12/28/18 at 08:15; Stop 12/29/18 at 08:14 Sodium Chloride 1,000 ml @ 400 mls/hr Q2H30M PRN IV PATENCY; Start 12/28/18 at 08:10; Stop 12/28/18 at 20:09 Info (PHARMACY MONITORING -- do not chart) 1 each PRN DAILY PRN MC SEE COMMENTS; Start 12/28/18 at 08:15 Vancomycin HCl 500 mg/Sodium Chloride 100 ml @ 100 mls/hr QMWF IV ; Start 12/30/18 at 16:00 Active Scripts Active Reported Augmentin 875-125 Tablet (Amoxicillin/Potassium Clav) 1 Each Tablet 1 Tab PO BID Protonix (Pantoprazole Sodium) 20 Mg Tablet.dr 40 Mg PO DAILY Lipitor (Atorvastatin Calcium) 20 Mg Tablet 20 Mg PO HS Aspirin 81 Mg Tab.chew 1 Tab PO DAILY Losartan Potassium 50 Mg Tablet 25 Mg PO DAILY Tums (Calcium Carbonate) 200 Mg Tab.chew 2 Tab PO TIDAC Breo Ellipta 100-25 Mcg Inh (Fluticasone/Vilanterol) 1 Each Aer.pow.ba 1 Puff IH DAILY PRN Ventolin Hfa Inhaler (Albuterol Sulfate) 18 Gm Hfa.aer.ad 2 Puff INH QID Ferrous Sulfate 325 Mg Tablet 325 Mg PO TID Docusate Sodium 100 Mg Capsule 100 Mg PO BID Humulin R U-500 Kwikpen (Insulin Regular, Human) 500 Unit/1 Ml Insuln.pen 10 Unit SQ TIDAC U-500 Voltaren (Diclofenac Sodium) 100 Gm Gel..gram. 100 Gm TP PRN QID PRN [place] 10-325 Tablet (Acetaminophen/Hydrocodone Bitart) 1 Each Tablet 1 Tab PO PRN Q6HRS PRN Levothyroxine Sodium 150 Mcg Tablet 150 Mcg PO DAILYAC Carvedilol (Carvedilol) 6.25 Mg Tablet 6.25 Mg PO BIDWMEALS Vitals/I & O Vital Sign - Last 24 Hours 12/27/18 12/27/18 12/27/18 12/27/18 15:40 18:23 18:23 19:00 Temp 97.8 97.6 97.8 97.6 Pulse 90 90 89 Resp 16 18 18 B/P (MAP) 117/46 (69) 117/46 123/35 (64) Pulse Ox 99 96 O2 Delivery Nasal Cannula Nasal Cannula Nasal Cannula O2 Flow Rate 2.0 2.0 12/27/18 12/27/18 12/27/18 12/27/18 19:30 19:48 20:15 23:00 Temp 98.0 98.0 Pulse 82 Resp 18 B/P (MAP) 104/52 (69) Pulse Ox 96 98 O2 Delivery Nasal Cannula Nasal Cannula Nasal Cannula Nasal Cannula O2 Flow Rate 2.0 2.0 2.0 2.0 12/28/18 12/28/18 12/28/18 03:00 07:00 07:19 Temp 97.4 97.8 97.4 97.8 Pulse 78 85 Resp 18 17 B/P (MAP) 126/53 (77) 116/53 (74) Pulse Ox 100 95 98 O2 Delivery Nasal Cannula Nasal Cannula Nasal Cannula O2 Flow Rate 2.0 2.0 2.0 Intake and Output 12/27/18 12/27/18 12/28/18 15:00 23:00 07:00 Intake Total 360 ml Balance 360 ml KIMBERLY LOPEZ MD Dec 28, 2018 09:21
[2018-12-28] MEDS: oxyCODONE IR 5 MG TABLET PO PRN ×3 (09:25→20:56)
[2018-12-28 10:04] LABS: % BANDS 5 % (0-9); % BASOS 2 % (0-3); % EOS 1 % (0-5); % LYMPHS 7 % (24-48); % MONOS 1 % (0-10); % SEGS 84 % (35-66); ANISOCYTOSIS PRESENT; PLT ESTIMATE ADEQUATE (ADEQUATE)
--- NOTE | 2018-12-28 10:35 | NUR ---
GISELE consulted for dc planning, potential HH discharge. Chart reviewed. Pt lives at home with family. Pt has PMHx ESRD, DM 2, COPD, HTN and is admitted for left hand cellulitis. PT/OT ordered and pending. Plan 1. GISELE spoke with [facility], , fax: [phone] and pt's schedule is MWF at 0600. 2. GISELE will await for PT/OT recommendations. 2. GISELE will continue to follow pt.
[2018-12-28 10:36] VITALS: BP 122/58
--- NOTE | 2018-12-28 11:33 | PDOC ---
Infectious Disease Note Vital Signs: Vital Signs Vital Signs Date Time Temp Pulse Resp B/P (MAP) Pulse Ox O2 Delivery O2 Flow Rate FiO2 12/28/18 10:36 97.7 84 17 122/58 (79) 95 Nasal Cannula 2.0 97.7 Medications: Inpatient Meds: Current Medications Medications (Trade) Dose Ordered Sig/Becki Start Time Stop Time Status Last Admin Dose Admin Acetaminophen (Tylenol) 500 mg 1X PRN PRN 12/28/18 08:15 12/29/18 08:14 Acetaminophen/ Hydrocodone Bitart (Lortab 10325) 1 tab PRN Q6HRS PRN 12/27/18 16:30 Albumin Human 200 ml @ 200 mls/hr 1X PRN PRN 12/28/18 08:15 12/28/18 14:14 Albuterol Sulfate (Ventolin Neb Soln) 2.5 mg RTQID 12/27/18 20:00 12/28/18 07:17 2.5 MG Aspirin (Children'S Aspirin) 81 mg DAILY 12/28/18 09:00 12/28/18 08:11 81 MG Atorvastatin Calcium (Lipitor) 20 mg HS 12/27/18 21:00 12/27/18 21:08 20 MG Bisacodyl (Dulcolax Supp) 10 mg PRN DAILY PRN 12/27/18 16:30 Budesonide (Pulmicort) 0.5 mg RTBID 12/27/18 20:00 12/28/18 07:17 0.5 MG Calcium Carbonate/ Glycine (Tums) 500 mg PRN Q3HRS PRN 12/27/18 16:30 Carvedilol (Coreg) 6.25 mg BIDWMEALS 12/27/18 17:00 12/27/18 18:23 6.25 MG Cefepime HCl (Maxipime) 1 gm Q24H 12/27/18 18:00 12/27/18 17:59 1 GM Clonidine HCl (Catapres) 0.1 mg PRN Q1HR PRN 12/27/18 16:30 Diclofenac Sodium (Voltaren) 100 charan PRN QID PRN 12/27/18 16:30 Diphenhydramine HCl (Benadryl) 25 mg 1X PRN PRN 12/28/18 08:15 12/29/18 08:14 Docusate Sodium (Colace) 100 mg BID 12/27/18 21:00 12/28/18 08:11 100 MG Ferrous Sulfate (Feosol) 325 mg TIDWMEALS 12/27/18 17:00 12/28/18 08:12 325 MG Info (PHARMACY MONITORING -- do not chart) 1 each PRN DAILY PRN 12/28/18 08:15 Insulin Human Lispro (HumaLOG) 10 units TIDWMEALS 12/27/18 17:30 12/28/18 08:15 10 UNITS Levothyroxine Sodium (Synthroid) 150 mcg DAILYAC 12/28/18 07:30 12/28/18 08:11 150 MCG Losartan Potassium (Cozaar) 25 mg DAILY 12/28/18 09:00 Magnesium Hydroxide (Milk Of Magnesia) 2,400 mg PRN Q12HR PRN 12/27/18 16:30 Morphine Sulfate (Morphine Sulfate) 2 mg PRN Q2HR PRN 12/27/18 16:45 Non-Formulary Medication (Albuterol Sulfate (Ventolin Hfa Inhaler)) 2 puff QID 12/27/18 17:00 UNV Non-Formulary Medication (Fluticasone/ Vilanterol (Breo Ellipta 100-25 Mcg Inh)) 1 puff DAILY PRN 12/27/18 16:30 UNV Ondansetron HCl (Zofran) 4 mg PRN Q6HRS PRN 12/27/18 16:30 Oxycodone HCl (Roxicodone) 5 mg PRN Q3HRS PRN 12/27/18 16:30 12/28/18 09:25 5 MG Pantoprazole Sodium (Protonix) 40 mg DAILYAC 12/28/18 07:30 12/28/18 08:11 40 MG Sodium Polystyrene Sulfonate (Kayexalate) 15 gm 1X ONCE 12/28/18 05:45 12/28/18 05:46 DC 12/28/18 05:57 15 GM Sodium Chloride 1,000 ml @ 400 mls/hr Q2H30M PRN 12/28/18 08:10 12/28/18 20:09 Vancomycin HCl (Vanco Per Pharmacy) 1 each PRN DAILY PRN 12/27/18 17:15 12/28/18 08:20 1 EACH Vancomycin HCl (Vancomycin Random Level) 1 each 1X ONCE 12/28/18 06:00 12/28/18 06:01 DC 12/28/18 06:00 1 EACH Vancomycin HCl 1.5 gm/Sodium Chloride 500 ml @ 250 mls/hr 1X ONCE 12/27/18 17:30 12/27/18 19:29 DC 12/27/18 18:02 250 MLS/HR Vancomycin HCl 500 mg/Sodium Chloride 100 ml @ 100 mls/hr QMWF 12/30/18 16:00 Zolpidem Tartrate (Ambien) 5 mg PRN QHS PRN 12/27/18 16:30 Labs: Lab Laboratory Tests Test 12/27/18 17:01 12/27/18 21:28 12/28/18 03:35 12/28/18 07:27 Glucose (Fingerstick) 292 mg/dL (70-99) 242 mg/dL (70-99) 292 mg/dL (70-99) White Blood Count 16.1 x10^3/uL (4.0-11.0) Red Blood Count 3.33 x10^6/uL (4.30-5.70) Hemoglobin 10.5 g/dL (13.0-17.5) Hematocrit 34.9 % (39.0-53.0) Mean Corpuscular Volume 105 fL (79-100) Mean Corpuscular Hemoglobin 32 pg (25-35) Mean Corpuscular Hemoglobin Concent 30 g/dL (31-37) Red Cell Distribution Width 16.0 % (11.5-14.5) Platelet Count 321 x10^3/uL (140-400) Neutrophils (%) (Auto) 87 % (31-73) Lymphocytes (%) (Auto) 7 % (24-48) Monocytes (%) (Auto) 5 % (0-9) Eosinophils (%) (Auto) 1 % (0-3) Basophils (%) (Auto) 1 % (0-3) Neutrophils # (Auto) 14.0 x10^3/uL (1.8-7.7) Lymphocytes # (Auto) 1.2 x10^3/uL (1.0-4.8) Monocytes # (Auto) 0.7 x10^3/uL (0.0-1.1) Eosinophils # (Auto) 0.1 x10^3/uL (0.0-0.7) Basophils # (Auto) 0.1 x10^3/uL (0.0-0.2) Segmented Neutrophils % 84 % (35-66) Band Neutrophils % 5 % (0-9) Lymphocytes % 7 % (24-48) Monocytes % 1 % (0-10) Eosinophils % 1 % (0-5) Basophils % 2 % (0-3) Platelet Estimate Adequate (ADEQUATE) Anisocytosis Present Macrocytosis Present Erythrocyte Sedimentation Rate 61 (0-15) Prothrombin Time 15.9 SEC (11.7-14.0) Prothromb Time International Ratio 1.3 (0.8-1.1) Sodium Level 136 mmol/L (136-145) Potassium Level 6.2 mmol/L (3.5-5.1) Chloride Level 100 mmol/L (98-107) Carbon Dioxide Level 23 mmol/L (21-32) Anion Gap 13 (6-14) Blood Urea Nitrogen 42 mg/dL (8-26) Creatinine 8.0 mg/dL (0.7-1.3) Estimated GFR (Cockcroft-Gault) 8.1 Glucose Level 280 mg/dL (70-99) Calcium Level 7.8 mg/dL (8.5-10.1) Random Vancomycin Level 24.1 mcg/mL Objective: Assessment: Pt seen and examined ID Consult dictated IMP: Lt thumb infection Lt 3rd finger dry eschar ESRD DM2 poorly controlled Plan: Plan of Care cont cefepime and vanco renal dosing for dialysis f/u x ray of lt hand local wound care f/u c.s and labs [facility] [id number] MARCIN GONZALEZ MD Dec 28, 2018 11:33
--- NOTE | 2018-12-28 12:08 | PDOC2 ---
CONSULT Date of Consult Date of Consult DATE: 12/28/18 TIME: 11:59 Reason for Consult Reason for Consult: ESRD Source Source: Chart review, Patient History of Present Illness Reason for Visit: 68 AA female, ESRD MWFD, HX cABG, DM 2 uncontrolled (, HTN, COPD, obese, direct admit from wound care (Dr Dillon's office) because of left thumb wound that was unroofed in clinic Currently she is c/o pain in the thumb and is asking for pain meds. Denies any N/V/D. No CP or SOB Past Medical History Cardiovascular: CAD, HTN, Hyperlipidemia Heme/Onc: Anemia NOS Renal/: Chronic renal insuff Endocrine: Diabetes, Hypothyroidism Past Surgical History Past Surgical History: CABG Family History Family History: Hypertension Social History No ALCOHOL: none Drugs: None Lives: with Family Domestic Violence: Neg Current Medications Current Medications Current Medications Ondansetron HCl (Zofran) 4 mg PRN Q6HRS PRN IV NAUSEA/VOMITING; Start 12/27/18 at 16:30 Calcium Carbonate/ Glycine (Tums) 500 mg PRN Q3HRS PRN PO UPSET STOMACH; Start 12/27/18 at 16:30 Zolpidem Tartrate (Ambien) 5 mg PRN QHS PRN PO INSOMNIA, MAY REPEAT IN 1HR; Start 12/27/18 at 16:30 Oxycodone HCl (Roxicodone) 5 mg PRN Q3HRS PRN PO BREAKTHROUGH PAIN Last administered on 12/28/18at 09:25; Start 12/27/18 at 16:30 Morphine Sulfate (Morphine Sulfate) 1 mg PRN Q1HR PRN IV PAIN; Start 12/27/18 at 16:30; Stop 12/27/18 at 16:39; Status DC Acetaminophen (Tylenol) 650 mg PRN Q6HRS PRN PO Headaches, Temp > 101.5F; Start 12/27/18 at 16:30 Docusate Sodium (Colace) 100 mg BID PO Last administered on 12/28/18at 08:11; Start 12/27/18 at 21:00 Magnesium Hydroxide (Milk Of Magnesia) 2,400 mg PRN Q12HR PRN PO CONSTIPATION; Start 12/27/18 at 16:30 Bisacodyl (Dulcolax Supp) 10 mg PRN DAILY PRN [place] CONSTIPATION; Start 12/27/18 at 16:30 Ondansetron HCl (Zofran) 4 mg PRN Q6HRS PRN IVP NAUSEA/VOMITING; Start 12/27/18 at 16:30; Stop 12/28/18 at 11:31; Status DC Clonidine HCl (Catapres) 0.1 mg PRN Q1HR PRN PO HYPERTENSION; Start 12/27/18 at 16:30 Aspirin (Children'S Aspirin) 81 mg DAILY PO Last administered on 12/28/18at 08:11; Start 12/28/18 at 09:00 Atorvastatin Calcium (Lipitor) 20 mg HS PO Last administered on 12/27/18at 21:08; Start 12/27/18 at 21:00 Carvedilol (Coreg) 6.25 mg BIDWMEALS PO Last administered on 12/27/18at 18:23; Start 12/27/18 at 17:00 Diclofenac Sodium (Voltaren) 100 charan PRN QID PRN TP PAIN; Start 12/27/18 at 16:30 Ferrous Sulfate (Feosol) 325 mg TIDWMEALS PO Last administered on 12/28/18at 08:12; Start 12/27/18 at 17:00 Acetaminophen/ Hydrocodone Bitart (Lortab 10/325) 1 tab PRN Q6HRS PRN PO PAIN; Start 12/27/18 at 16:30 Levothyroxine Sodium (Synthroid) 150 mcg DAILYAC PO Last administered on 12/28/18at 08:11; Start 12/28/18 at 07:30 Losartan Potassium (Cozaar) 25 mg DAILY PO ; Start 12/28/18 at 09:00 Non-Formulary Medication (Albuterol Sulfate (Ventolin Hfa Inhaler)) 2 puff QID INH ; Start 12/27/18 at 17:00; Status UNV Non-Formulary Medication (Fluticasone/ Vilanterol (Breo Ellipta 100-25 Mcg Inh)) 1 puff DAILY PRN IH daily; Start 12/27/18 at 16:30; Status UNV Insulin Human Lispro (HumaLOG) 10 units TIDWMEALS SQ Last administered on 12/28/18at 08:15; Start 12/27/18 at 17:30 Pantoprazole Sodium (Protonix) 40 mg DAILYAC PO Last administered on 12/28/18at 08:11; Start 12/28/18 at 07:30 Albuterol Sulfate (Ventolin Neb Soln) 2.5 mg RTQID NEB Last administered on 12/28/18at 11:37; Start 12/27/18 at 20:00 Budesonide (Pulmicort) 0.5 mg RTBID NEB Last administered on 12/28/18at 07:17; Start 12/27/18 at 20:00 Morphine Sulfate (Morphine Sulfate) 2 mg PRN Q2HR PRN IV PAIN; Start 12/27/18 at 16:45 Cefepime HCl (Maxipime) 1 gm Q24H IVP Last administered on 12/27/18at 17:59; Start 12/27/18 at 18:00 Vancomycin HCl (Vanco Per Pharmacy) 1 each PRN DAILY PRN MC SEE COMMENTS Last administered on 12/28/18at 08:20; Start 12/27/18 at 17:15 Vancomycin HCl 1.5 gm/Sodium Chloride 500 ml @ 250 mls/hr 1X ONCE IV Last administered on 12/27/18at 18:02; Start 12/27/18 at 17:30; Stop 12/27/18 at 19:29; Status DC Vancomycin HCl (Vancomycin Random Level) 1 each 1X ONCE MC Last administered on 12/28/18at 06:00; Start 12/28/18 at 06:00; Stop 12/28/18 at 06:01; Status DC Sodium Polystyrene Sulfonate (Kayexalate) 15 gm 1X ONCE PO Last administered on 12/28/18at 05:57; Start 12/28/18 at 05:45; Stop 12/28/18 at 05:46; Status DC Sodium Chloride 1,000 ml @ 1,000 mls/hr Q1H PRN IV hypotension; Start 12/28/18 at 08:10; Stop 12/28/18 at 14:09 Albumin Human 200 ml @ 200 mls/hr 1X PRN PRN IV Hypotension; Start 12/28/18 at 08:15; Stop 12/28/18 at 14:14 Acetaminophen (Tylenol) 500 mg 1X PRN PRN PO MILD PAIN / TEMP; Start 12/28/18 at 08:15; Stop 12/29/18 at 08:14 Diphenhydramine HCl (Benadryl) 25 mg 1X PRN PRN IV ITCHING; Start 12/28/18 at 08:15; Stop 12/29/18 at 08:14 Diphenhydramine HCl (Benadryl) 25 mg 1X PRN PRN IV ITCHING; Start 12/28/18 at 08:15; Stop 12/29/18 at 08:14 Sodium Chloride 1,000 ml @ 400 mls/hr Q2H30M PRN IV PATENCY; Start 12/28/18 at 08:10; Stop 12/28/18 at 20:09 Info (PHARMACY MONITORING -- do not chart) 1 each PRN DAILY PRN MC SEE COMMENTS; Start 12/28/18 at 08:15 Vancomycin HCl 500 mg/Sodium Chloride 100 ml @ 100 mls/hr QMWF IV ; Start 12/30/18 at 16:00 Active Scripts Active Reported Augmentin 875-125 Tablet (Amoxicillin/Potassium Clav) 1 Each Tablet 1 Tab PO BID Protonix (Pantoprazole Sodium) 20 Mg Tablet.dr 40 Mg PO DAILY Lipitor (Atorvastatin Calcium) 20 Mg Tablet 20 Mg PO HS Aspirin 81 Mg Tab.chew 1 Tab PO DAILY Losartan Potassium 50 Mg Tablet 25 Mg PO DAILY Tums (Calcium Carbonate) 200 Mg Tab.chew 2 Tab PO TIDAC Breo Ellipta 100-25 Mcg Inh (Fluticasone/Vilanterol) 1 Each Aer.pow.ba 1 Puff IH DAILY PRN Ventolin Hfa Inhaler (Albuterol Sulfate) 18 Gm Hfa.aer.ad 2 Puff INH QID Ferrous Sulfate 325 Mg Tablet 325 Mg PO TID Docusate Sodium 100 Mg Capsule 100 Mg PO BID Humulin R U-500 Kwikpen (Insulin Regular, Human) 500 Unit/1 Ml Insuln.pen 10 Unit SQ TIDAC U-500 Voltaren (Diclofenac Sodium) 100 Gm Gel..gram. 100 Gm TP PRN QID PRN [place] 10-325 Tablet (Acetaminophen/Hydrocodone Bitart) 1 Each Tablet 1 Tab PO PRN Q6HRS PRN Levothyroxine Sodium 150 Mcg Tablet 150 Mcg PO DAILYAC Carvedilol (Carvedilol) 6.25 Mg Tablet 6.25 Mg PO BIDWMEALS Allergies Allergies: Coded Allergies: meperidine (Verified Allergy, Intermediate, 04/12/18) ROS Review of System Per HPI Physical Exam Physical Exam General: NAD Cooperative HEENT: OM moist Lungs: Clear to auscultation, Non labored Heart: Regular rate, Normal S1, Normal S2 Abdomen: Normal bowel sounds, Soft Extremities: No edema Skin: No rashes, (rt breast lower outer and lower inner quadrant has post op sx wound with dressing on. + tenderness. ) Neuro: Grossly normal - no Weaver Vital Signs Vital Signs Date Time Temp Pulse Resp B/P (MAP) Pulse Ox O2 Delivery O2 Flow Rate FiO2 12/28/18 11:38 98 Nasal Cannula 2.0 12/28/18 10:36 97.7 84 17 122/58 (79) 97.7 Assessment & Plan ESRD- MMF Dr. 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 Labs Labs Laboratory Tests Test 12/27/18 17:01 12/27/18 21:28 12/28/18 03:35 12/28/18 07:27 Glucose (Fingerstick) 292 mg/dL (70-99) 242 mg/dL (70-99) 292 mg/dL (70-99) White Blood Count 16.1 x10^3/uL (4.0-11.0) Red Blood Count 3.33 x10^6/uL (4.30-5.70) Hemoglobin 10.5 g/dL (13.0-17.5) Hematocrit 34.9 % (39.0-53.0) Mean Corpuscular Volume 105 fL (79-100) Mean Corpuscular Hemoglobin 32 pg (25-35) Mean Corpuscular Hemoglobin Concent 30 g/dL (31-37) Red Cell Distribution Width 16.0 % (11.5-14.5) Platelet Count 321 x10^3/uL (140-400) Neutrophils (%) (Auto) 87 % (31-73) Lymphocytes (%) (Auto) 7 % (24-48) Monocytes (%) (Auto) 5 % (0-9) Eosinophils (%) (Auto) 1 % (0-3) Basophils (%) (Auto) 1 % (0-3) Neutrophils # (Auto) 14.0 x10^3/uL (1.8-7.7) Lymphocytes # (Auto) 1.2 x10^3/uL (1.0-4.8) Monocytes # (Auto) 0.7 x10^3/uL (0.0-1.1) Eosinophils # (Auto) 0.1 x10^3/uL (0.0-0.7) Basophils # (Auto) 0.1 x10^3/uL (0.0-0.2) Segmented Neutrophils % 84 % (35-66) Band Neutrophils % 5 % (0-9) Lymphocytes % 7 % (24-48) Monocytes % 1 % (0-10) Eosinophils % 1 % (0-5) Basophils % 2 % (0-3) Platelet Estimate Adequate (ADEQUATE) Anisocytosis Present Macrocytosis Present Erythrocyte Sedimentation Rate 61 (0-15) Prothrombin Time 15.9 SEC (11.7-14.0) Prothromb Time International Ratio 1.3 (0.8-1.1) Sodium Level 136 mmol/L (136-145) Potassium Level 6.2 mmol/L (3.5-5.1) Chloride Level 100 mmol/L (98-107) Carbon Dioxide Level 23 mmol/L (21-32) Anion Gap 13 (6-14) Blood Urea Nitrogen 42 mg/dL (8-26) Creatinine 8.0 mg/dL (0.7-1.3) Estimated GFR (Cockcroft-Gault) 8.1 Glucose Level 280 mg/dL (70-99) Calcium Level 7.8 mg/dL (8.5-10.1) Random Vancomycin Level 24.1 mcg/mL Laboratory Tests Test 12/27/18 17:01 12/27/18 21:28 12/28/18 03:35 12/28/18 07:27 Glucose (Fingerstick) 292 mg/dL (70-99) 242 mg/dL (70-99) 292 mg/dL (70-99) White Blood Count 16.1 x10^3/uL (4.0-11.0) Red Blood Count 3.33 x10^6/uL (4.30-5.70) Hemoglobin 10.5 g/dL (13.0-17.5) Hematocrit 34.9 % (39.0-53.0) Mean Corpuscular Volume 105 fL (79-100) Mean Corpuscular Hemoglobin 32 pg (25-35) Mean Corpuscular Hemoglobin Concent 30 g/dL (31-37) Red Cell Distribution Width 16.0 % (11.5-14.5) Platelet Count 321 x10^3/uL (140-400) Neutrophils (%) (Auto) 87 % (31-73) Lymphocytes (%) (Auto) 7 % (24-48) Monocytes (%) (Auto) 5 % (0-9) Eosinophils (%) (Auto) 1 % (0-3) Basophils (%) (Auto) 1 % (0-3) Neutrophils # (Auto) 14.0 x10^3/uL (1.8-7.7) Lymphocytes # (Auto) 1.2 x10^3/uL (1.0-4.8) Monocytes # (Auto) 0.7 x10^3/uL (0.0-1.1) Eosinophils # (Auto) 0.1 x10^3/uL (0.0-0.7) Basophils # (Auto) 0.1 x10^3/uL (0.0-0.2) Segmented Neutrophils % 84 % (35-66) Band Neutrophils % 5 % (0-9) Lymphocytes % 7 % (24-48) Monocytes % 1 % (0-10) Eosinophils % 1 % (0-5) Basophils % 2 % (0-3) Platelet Estimate Adequate (ADEQUATE) Anisocytosis Present Macrocytosis Present Erythrocyte Sedimentation Rate 61 (0-15) Prothrombin Time 15.9 SEC (11.7-14.0) Prothromb Time International Ratio 1.3 (0.8-1.1) Sodium Level 136 mmol/L (136-145) Potassium Level 6.2 mmol/L (3.5-5.1) Chloride Level 100 mmol/L (98-107) Carbon Dioxide Level 23 mmol/L (21-32) Anion Gap 13 (6-14) Blood Urea Nitrogen 42 mg/dL (8-26) Creatinine 8.0 mg/dL (0.7-1.3) Estimated GFR (Cockcroft-Gault) 8.1 Glucose Level 280 mg/dL (70-99) Calcium Level 7.8 mg/dL (8.5-10.1) Random Vancomycin Level 24.1 mcg/mL Review All relevant outside records, renal labs, imaging studies, telemetry/EKG's were reviewed. RANI ERICKSON MD Dec 28, 2018 12:08
--- NOTE | 2018-12-28 12:15 | RAD ---
2 views left hand without comparison for rule out osteomyelitis. FINDINGS: There are poorly defined erosions involving the first and third distal phalanges, and there appears to be some soft tissue swelling particularly about the phalanx of the thumb. Extensive vascular calcifications are seen. Early degenerative changes of the carpometacarpal joints are noted. IMPRESSION: 1. Abnormality of the fletcher of the first and third digits with associated soft tissue swelling. Osteomyelitis is certainly a consideration. Findings could be better evaluated with contrast-enhanced MRI if clinically indicated. Electronically signed by: Edmund Ibanez MD (12/28/2018 12:11 PM) [facility]
--- NOTE | 2018-12-28 13:56 | CONS ---
DATE OF CONSULTATION: 12/28/2018 REFERRING PHYSICIAN: Pao Narayan MD REASON FOR CONSULTATION: Left hand infection. HISTORY OF PRESENT ILLNESS: A 68-year-old male with end-stage renal disease; diabetes mellitus 2, uncontrolled; hypertension; COPD; obesity; hypothyroidism, directly admitted from wound care for concerns of left thumb wound and infection. The patient is currently undergoing dialysis. She is sleepy, answers a few questions. She says she has had it for a while, but got worse without improvement. The patient also has a left third finger dry eschar which has been there for a while and reportedly from self-manipulation, but states that does not cause any pain. The patient's white count was 16,000, afebrile. Hand x-ray was ordered. She was started on cefepime. I ordered one-time dose of vancomycin per Renal team and ID consult has been requested for antibiotic management. The patient states she is feeling better, though has pain in the left hand. Denies any fevers, chills, nausea, vomiting, diarrhea, abdominal pain. Denies any rash. Denies being on any antibiotics prior to admission. PAST MEDICAL HISTORY: End-stage renal disease; hypertension; hyperlipidemia; coronary artery disease; diabetes mellitus; poorly controlled hypothyroidism. PAST SURGICAL HISTORY: CABG. FAMILY HISTORY: As per HPI. SOCIAL HISTORY: Denies smoking, ETOH, or illicit drug use. CURRENT MEDICATION: IV cefepime, vancomycin, dialysis dose. ALLERGIES: MEPERIDINE. REVIEW OF SYSTEMS: Limited, but negative except for above in HPI. PHYSICAL EXAMINATION: VITAL SIGNS: Temperature 97.7, pulse 84, respiratory rate 17, blood pressure 128/58, oxygen saturation 95% on 2 liters by nasal cannula. GENERAL: Alert and oriented x 3 female, sleepy, but arousable, undergoing dialysis, appears comfortable. HEENT: Anicteric, no thrush. Oral mucosa moist. NECK: Supple, no JVD. LUNGS: Clear bilaterally. HEART: S1, S2. No gallops. ABDOMEN: Soft, obese. Bowel sounds present, nontender. EXTREMITIES: Edema present, chronic. DERMATOLOGIC: Left hand with dressing in place, not taken down as she is undergoing dialysis. Left third finger has dry eschar. No surrounding redness, no purulence. MUSCULOSKELETAL: No decrease in range of motion at the left wrist or elbow. NEUROLOGIC: Alert, awake, moves all 4 extremities. PSYCHIATRIC: Cooperative, appropriate mood and affect. LABORATORY DATA: WBC 16.1, hemoglobin 10.5, hematocrit 34.9, platelets 321. ESR 61. Sodium 136, potassium 6.2, chloride 100, bicarbonate 23, creatinine 8.0, glucose 292. Random vancomycin 24.1. INR 1.3. IMAGING: Hand x-ray pending at this time. IMPRESSION: 1. Left thumb infection present on admission. 2. Left third finger dry eschar, chronic. 3. End-stage renal disease, on hemodialysis. 4. Diabetes mellitus, uncontrolled. 5. End-stage renal disease, on dialysis Wednesday, Wednesday and Wednesday through fistula left upper extremity. 6. History of breast abscess with MSSA, Klebsiella and E. coli 04/2018. 7. PPM in place. RECOMMENDATIONS: 1. Continue IV vancomycin and cefepime renal dosing. 2. Followup x-ray of the left hand. 3. Vascular evaluation pending 4. Continue local wound care. 5. Continue to follow up cultures and lab. 6. Continue supportive care. Discussed with RN. Thank you, Dr. Narayan, for consulting Infectious Disease to participate in this patient's care. If you have any questions, do not hesitate to contact. MARCIN GONZALEZ MD DR: THIERNO/nts JOB#: [id number] / [id number] JOSE
[2018-12-28 15:00] VITALS: BP 119/60
--- NOTE | 2018-12-28 15:35 | PDOC ---
Provider Note Provider Note Pt seen by Dr. Barnett for vascular surgery consult - please see full dictation. He has recommended fistula angiogram as well as left arm angio with steal maneuvers. Will place order for MIA SEYMOUR Dec 28, 2018 15:35
[2018-12-28] MEDS: CEFEPIME HCL IV Push 1 GM VIAL. IVP SCH (16:46)
[2018-12-28 19:00] VITALS: BP 87/43
--- NOTE | 2018-12-28 20:18 | PDOC2 ---
CONSULT Date of Consult Date of Consult DATE: 12/28/18 TIME: 20:06 Reason for Consult Reason for Consult: left hand wounds; left arm AV Fistula; concern for ischemia left hand Referring Physician Referring Physician: Dr Jude BAILEY Identification/Chief Complaint Chief Complaint Left hand (thumb) pain and wound Source Source: Chart review, Patient History of Present Illness Reason for Visit: A 68-year-old female with end-stage renal disease; diabetes mellitus 2, uncontrolled; hypertension; COPD; obesity; hypothyroidism, directly admitted from wound care for concerns of left thumb wound and infection. She was undergoing dialysis at the time of my exam making complete exam difficult She is somewhat sleepy but wakes up and converses with me. She has loss of skin over most of the left thumb and a dry eschar at the tip of the left 3rd finger. Again, this is difficult to evaluate as she is undergoing HD via a left forearm AV fistula. She is not sure how long the wounds have been there -- she states the eschar for some time, the thumb wound more recently. She has some pain in the left thumb but states it is not worse during HD. She tells me she is still able to move the fingers. . The patient's white count was 16,000, afebrile. Hand x-ray was ordered and pending at the time of my evaluation. She has been s tarted on ABX by ID and renal. She has a left forearm AVF that is functioning well. She was not able to recall who put it in but states it has been there "for a while" Past Medical History Past Medical History PAST MEDICAL HISTORY: End-stage renal disease; hypertension; hyperlipidemia; coronary artery disease; diabetes mellitus; poorly controlled hypothyroidism. Cardiovascular: CAD, HTN, Hyperlipidemia Heme/Onc: Anemia NOS Renal/: Chronic renal insuff Endocrine: Diabetes, Hypothyroidism Past Surgical History Past Surgical History: CABG Family History Family History: Hypertension Social History No ALCOHOL: none Drugs: None Lives: with Family Domestic Violence: Neg Current Medications Current Medications Current Medications Ondansetron HCl (Zofran) 4 mg PRN Q6HRS PRN IV NAUSEA/VOMITING; Start 12/27/18 at 16:30 Calcium Carbonate/ Glycine (Tums) 500 mg PRN Q3HRS PRN PO UPSET STOMACH; Start 12/27/18 at 16:30 Zolpidem Tartrate (Ambien) 5 mg PRN QHS PRN PO INSOMNIA, MAY REPEAT IN 1HR; Start 12/27/18 at 16:30 Oxycodone HCl (Roxicodone) 5 mg PRN Q3HRS PRN PO BREAKTHROUGH PAIN Last administered on 12/28/18at 16:45; Start 12/27/18 at 16:30 Morphine Sulfate (Morphine Sulfate) 1 mg PRN Q1HR PRN IV PAIN; Start 12/27/18 at 16:30; Stop 12/27/18 at 16:39; Status DC Acetaminophen (Tylenol) 650 mg PRN Q6HRS PRN PO Headaches, Temp > 101.5F; Start 12/27/18 at 16:30 Docusate Sodium (Colace) 100 mg BID PO Last administered on 12/28/18at 08:11; Start 12/27/18 at 21:00 Magnesium Hydroxide (Milk Of Magnesia) 2,400 mg PRN Q12HR PRN PO CONSTIPATION; Start 12/27/18 at 16:30 Bisacodyl (Dulcolax Supp) 10 mg PRN DAILY PRN [place] CONSTIPATION; Start 12/27/18 at 16:30 Ondansetron HCl (Zofran) 4 mg PRN Q6HRS PRN IVP NAUSEA/VOMITING; Start 12/27/18 at 16:30; Stop 12/28/18 at 11:31; Status DC Clonidine HCl (Catapres) 0.1 mg PRN Q1HR PRN PO HYPERTENSION; Start 12/27/18 at 16:30 Aspirin (Children'S Aspirin) 81 mg DAILY PO Last administered on 12/28/18at 08:11; Start 12/28/18 at 09:00 Atorvastatin Calcium (Lipitor) 20 mg HS PO Last administered on 12/27/18at 21:08; Start 12/27/18 at 21:00 Carvedilol (Coreg) 6.25 mg BIDWMEALS PO Last administered on 12/28/18at 16:45; Start 12/27/18 at 17:00 Diclofenac Sodium (Voltaren) 100 charan PRN QID PRN TP PAIN; Start 12/27/18 at 16:30 Ferrous Sulfate (Feosol) 325 mg TIDWMEALS PO Last administered on 12/28/18at 16:46; Start 12/27/18 at 17:00 Acetaminophen/ Hydrocodone Bitart (Lortab 10/325) 1 tab PRN Q6HRS PRN PO PAIN; Start 12/27/18 at 16:30 Levothyroxine Sodium (Synthroid) 150 mcg DAILYAC PO Last administered on 12/28/18at 08:11; Start 12/28/18 at 07:30 Losartan Potassium (Cozaar) 25 mg DAILY PO ; Start 12/28/18 at 09:00 Non-Formulary Medication (Albuterol Sulfate (Ventolin Hfa Inhaler)) 2 puff QID INH ; Start 12/27/18 at 17:00; Status UNV Non-Formulary Medication (Fluticasone/ Vilanterol (Breo Ellipta 100-25 Mcg Inh)) 1 puff DAILY PRN IH daily; Start 12/27/18 at 16:30; Status UNV Insulin Human Lispro (HumaLOG) 10 units TIDWMEALS SQ Last administered on 12/28/18at 17:42; Start 12/27/18 at 17:30 Pantoprazole Sodium (Protonix) 40 mg DAILYAC PO Last administered on 12/28/18at 08:11; Start 12/28/18 at 07:30 Albuterol Sulfate (Ventolin Neb Soln) 2.5 mg RTQID NEB Last administered on 12/28/18at 16:17; Start 12/27/18 at 20:00 Budesonide (Pulmicort) 0.5 mg RTBID NEB Last administered on 12/28/18at 07:17; Start 12/27/18 at 20:00 Morphine Sulfate (Morphine Sulfate) 2 mg PRN Q2HR PRN IV PAIN; Start 12/27/18 at 16:45 Cefepime HCl (Maxipime) 1 gm Q24H IVP Last administered on 12/28/18 16:46; Start 12/27/18 at 18:00 Vancomycin HCl (Vanco Per Pharmacy) 1 each PRN DAILY PRN MC SEE COMMENTS Last administered on 12/28/18 14:31; Start 12/27/18 at 17:15 Vancomycin HCl 1.5 gm/Sodium Chloride 500 ml @ 250 mls/hr 1X ONCE IV Last administered on 12/27/18 18:02; Start 12/27/18 at 17:30; Stop 12/27/18 at 19:29; Status DC Vancomycin HCl (Vancomycin Random Level) 1 each 1X ONCE MC Last administered on 12/28/18at 06:00; Start 12/28/18 at 06:00; Stop 12/28/18 at 06:01; Status DC Sodium Polystyrene Sulfonate (Kayexalate) 15 gm 1X ONCE PO Last administered on 12/28/18at 05:57; Start 12/28/18 at 05:45; Stop 12/28/18 at 05:46; Status DC Sodium Chloride 1,000 ml @ 1,000 mls/hr Q1H PRN IV hypotension; Start 12/28/18 at 08:10; Stop 12/28/18 at 14:09; Status DC Albumin Human 200 ml @ 200 mls/hr 1X PRN PRN IV Hypotension; Start 12/28/18 at 08:15; Stop 12/28/18 at 14:14; Status DC Acetaminophen (Tylenol) 500 mg 1X PRN PRN PO MILD PAIN / TEMP; Start 12/28/18 at 08:15; Stop 12/29/18 at 08:14 Diphenhydramine HCl (Benadryl) 25 mg 1X PRN PRN IV ITCHING; Start 12/28/18 at 08:15; Stop 12/29/18 at 08:14 Diphenhydramine HCl (Benadryl) 25 mg 1X PRN PRN IV ITCHING; Start 12/28/18 at 08:15; Stop 12/29/18 at 08:14 Sodium Chloride 1,000 ml @ 400 mls/hr Q2H30M PRN IV PATENCY; Start 12/28/18 at 08:10; Stop 12/28/18 at 20:09 Info (PHARMACY MONITORING -- do not chart) 1 each PRN DAILY PRN MC SEE COMMENTS; Start 12/28/18 at 08:15 Vancomycin HCl 500 mg/Sodium Chloride 100 ml @ 100 mls/hr QMWF IV ; Start 12/07 07/24 at 16:00 Lactobacillus Rhamnosus (Culturelle) 1 cap BID PO ; Start 12/28/18 at 21:00 Active Scripts Active Reported Augmentin 875-125 Tablet (Amoxicillin/Potassium Clav) 1 Each Tablet 1 Tab PO BID Protonix (Pantoprazole Sodium) 20 Mg Tablet.dr 40 Mg PO DAILY Lipitor (Atorvastatin Calcium) 20 Mg Tablet 20 Mg PO HS Aspirin 81 Mg Tab.chew 1 Tab PO DAILY Losartan Potassium 50 Mg Tablet 25 Mg PO DAILY Tums (Calcium Carbonate) 200 Mg Tab.chew 2 Tab PO TIDAC Breo Ellipta 100-25 Mcg Inh (Fluticasone/Vilanterol) 1 Each Aer.pow.ba 1 Puff IH DAILY PRN Ventolin Hfa Inhaler (Albuterol Sulfate) 18 Gm Hfa.aer.ad 2 Puff INH QID Ferrous Sulfate 325 Mg Tablet 325 Mg PO TID Docusate Sodium 100 Mg Capsule 100 Mg PO BID Humulin R U-500 Kwikpen (Insulin Regular, Human) 500 Unit/1 Ml Insuln.pen 10 Unit SQ TIDAC U-500 Voltaren (Diclofenac Sodium) 100 Gm Gel..gram. 100 Gm TP PRN QID PRN [place] 10-325 Tablet (Acetaminophen/Hydrocodone Bitart) 1 Each Tablet 1 Tab PO PRN Q6HRS PRN Levothyroxine Sodium 150 Mcg Tablet 150 Mcg PO DAILYAC Carvedilol (Carvedilol) 6.25 Mg Tablet 6.25 Mg PO BIDWMEALS Allergies Allergies: Coded Allergies: meperidine (Verified Allergy, Intermediate, 04/12/18) Physical Exam Physical Exam left hand with loss of skin over most of the thumb, left 3rd finger with dry eschar at the distal tip She is currently undergoing HD via a left forearm AVF so exam of the hand / function is limited. General: Alert, Oriented X3, Other HEENT: Atraumatic, PERRLA Lungs: Clear to auscultation, Normal air movement Heart: Regular rate, Normal S1, Normal S2, No murmurs Abdomen: Normal bowel sounds, Soft, No tenderness Extremities: Other Skin: Other Neuro: Normal speech, Cranial nerves 3-12 NL Psych/Mental Status: Mental status NL, Mood NL Vitals VITALS Vital Signs Date Time Temp Pulse Resp B/P (MAP) Pulse Ox O2 Delivery O2 Flow Rate FiO2 12/28/18 19:45 Nasal Cannula 2.0 12/28/18 19:00 98.3 93 18 87/43 (58) 97 98.3 Labs Labs Laboratory Tests Test 12/27/18 17:01 12/27/18 21:28 12/28/18 03:35 12/28/18 07:27 Glucose (Fingerstick) 292 mg/dL (70-99) 242 mg/dL (70-99) 292 mg/dL (70-99) White Blood Count 16.1 x10^3/uL (4.0-11.0) Red Blood Count 3.33 x10^6/uL (4.30-5.70) Hemoglobin 10.5 g/dL (13.0-17.5) Hematocrit 34.9 % (39.0-53.0) Mean Corpuscular Volume 105 fL (79-100) Mean Corpuscular Hemoglobin 32 pg (25-35) Mean Corpuscular Hemoglobin Concent 30 g/dL (31-37) Red Cell Distribution Width 16.0 % (11.5-14.5) Platelet Count 321 x10^3/uL (140-400) Neutrophils (%) (Auto) 87 % (31-73) Lymphocytes (%) (Auto) 7 % (24-48) Monocytes (%) (Auto) 5 % (0-9) Eosinophils (%) (Auto) 1 % (0-3) Basophils (%) (Auto) 1 % (0-3) Neutrophils # (Auto) 14.0 x10^3/uL (1.8-7.7) Lymphocytes # (Auto) 1.2 x10^3/uL (1.0-4.8) Monocytes # (Auto) 0.7 x10^3/uL (0.0-1.1) Eosinophils # (Auto) 0.1 x10^3/uL (0.0-0.7) Basophils # (Auto) 0.1 x10^3/uL (0.0-0.2) Segmented Neutrophils % 84 % (35-66) Band Neutrophils % 5 % (0-9) Lymphocytes % 7 % (24-48) Monocytes % 1 % (0-10) Eosinophils % 1 % (0-5) Basophils % 2 % (0-3) Platelet Estimate Adequate (ADEQUATE) Anisocytosis Present Macrocytosis Present Erythrocyte Sedimentation Rate 61 (0-15) Prothrombin Time 15.9 SEC (11.7-14.0) Prothromb Time International Ratio 1.3 (0.8-1.1) Sodium Level 136 mmol/L (136-145) Potassium Level 6.2 mmol/L (3.5-5.1) Chloride Level 100 mmol/L (98-107) Carbon Dioxide Level 23 mmol/L (21-32) Anion Gap 13 (6-14) Blood Urea Nitrogen 42 mg/dL (8-26) Creatinine 8.0 mg/dL (0.7-1.3) Estimated GFR (Cockcroft-Gault) 8.1 Glucose Level 280 mg/dL (70-99) Calcium Level 7.8 mg/dL (8.5-10.1) Random Vancomycin Level 24.1 mcg/mL Test 12/28/18 13:46 12/28/18 17:32 Glucose (Fingerstick) 95 mg/dL (70-99) 235 mg/dL (70-99) Laboratory Tests Test 12/27/18 21:28 12/28/18 03:35 12/28/18 07:27 12/28/18 13:46 Glucose (Fingerstick) 242 mg/dL (70-99) 292 mg/dL (70-99) 95 mg/dL (70-99) White Blood Count 16.1 x10^3/uL (4.0-11.0) Red Blood Count 3.33 x10^6/uL (4.30-5.70) Hemoglobin 10.5 g/dL (13.0-17.5) Hematocrit 34.9 % (39.0-53.0) Mean Corpuscular Volume 105 fL (79-100) Mean Corpuscular Hemoglobin 32 pg (25-35) Mean Corpuscular Hemoglobin Concent 30 g/dL (31-37) Red Cell Distribution Width 16.0 % (11.5-14.5) Platelet Count 321 x10^3/uL (140-400) Neutrophils (%) (Auto) 87 % (31-73) Lymphocytes (%) (Auto) 7 % (24-48) Monocytes (%) (Auto) 5 % (0-9) Eosinophils (%) (Auto) 1 % (0-3) Basophils (%) (Auto) 1 % (0-3) Neutrophils # (Auto) 14.0 x10^3/uL (1.8-7.7) Lymphocytes # (Auto) 1.2 x10^3/uL (1.0-4.8) Monocytes # (Auto) 0.7 x10^3/uL (0.0-1.1) Eosinophils # (Auto) 0.1 x10^3/uL (0.0-0.7) Basophils # (Auto) 0.1 x10^3/uL (0.0-0.2) Segmented Neutrophils % 84 % (35-66) Band Neutrophils % 5 % (0-9) Lymphocytes % 7 % (24-48) Monocytes % 1 % (0-10) Eosinophils % 1 % (0-5) Basophils % 2 % (0-3) Platelet Estimate Adequate (ADEQUATE) Anisocytosis Present Macrocytosis Present Erythrocyte Sedimentation Rate 61 (0-15) Prothrombin Time 15.9 SEC (11.7-14.0) Prothromb Time International Ratio 1.3 (0.8-1.1) Sodium Level 136 mmol/L (136-145) Potassium Level 6.2 mmol/L (3.5-5.1) Chloride Level 100 mmol/L (98-107) Carbon Dioxide Level 23 mmol/L (21-32) Anion Gap 13 (6-14) Blood Urea Nitrogen 42 mg/dL (8-26) Creatinine 8.0 mg/dL (0.7-1.3) Estimated GFR (Cockcroft-Gault) 8.1 Glucose Level 280 mg/dL (70-99) Calcium Level 7.8 mg/dL (8.5-10.1) Random Vancomycin Level 24.1 mcg/mL Test 12/28/18 17:32 Glucose (Fingerstick) 235 mg/dL (70-99) Images Images I ordered a fistula angiogram and left upper extremity angiogram by IR for today or tomorrow Assessment/Plan Assessment/Plan 68 y/o woman with DM and a left forearm AVF with evidence of wounds on the left hand (thumb and 3rd finger) associated with some pain in the thumb. My biggest concern would be steal syndrome. Will ask IR to perform angiogram of the fistula and of the entire left arm (likely from femoral access) with and without compression of the fistula this will give us anatomic information to determine if the fistula can be salvaged or if it needs to be ligated to save the hand. Will review these films once done I discussed this with the patient. GILBERT TSAI MD Dec 28, 2018 20:18
[2018-12-28] MEDS: LACTOBACILLUS RHAMNOSUS GG 1 CAPSULE. PO SCH (20:56)
[2018-12-28] MEDS: ATORVASTATIN CALCIUM 20 MG TABLET PO SCH (20:57)
[2018-12-28 23:00] VITALS: BP 105/54
[2018-12-29] VITALS (7 sets, daily range): BP systolic 103–132; BP diastolic 35–67
[2018-12-29] MEDS: oxyCODONE IR 5 MG TABLET PO PRN ×2 (03:06→15:57)
[2018-12-29] MEDS: LEVOTHYROXINE 150 MCG TABLET PO SCH (07:30)
[2018-12-29] MEDS: PANTOPRAZOLE 40 MG TABLET.DR. PO SCH (07:30)
[2018-12-29] MEDS: BUDESONIDE 0.5 MG/2 ML NEBU. NEB SCH ×2 (07:44→20:19)
[2018-12-29] MEDS: ALBUTEROL SULFATE 2.5 MG/3 ML NEBU. NEB SCH ×4 (07:44→20:19)
[2018-12-29] MEDS: CARVEDILOL 6.25 MG TABLET. PO SCH ×2 (08:00→17:39)
[2018-12-29] MEDS: ASPIRIN CHEWABLE 81 MG TABLET. PO SCH (09:00)
[2018-12-29] MEDS: LACTOBACILLUS RHAMNOSUS GG 1 CAPSULE. PO SCH ×2 (09:00→20:53)
[2018-12-29] MEDS: LOSARTAN POTASSIUM 50 MG TABLET. PO SCH (09:00)
[2018-12-29] MEDS: DOCUSATE SODIUM 100 MG CAPSULE. PO SCH ×2 (09:00→20:53)
[2018-12-29] MEDS ORDERED: IODIXANOL 320 MG/ML 100 ML VIAL. ONE (09:27)
[2018-12-29] MEDS ORDERED: LIDOCAINE WITH 8.4% SOD BICARB 3 ML DISP.SYRIN. ONE (09:27)
[2018-12-29] MEDS ORDERED: MIDAZOLAM HCL/PF 2 MG/2 ML VIAL. ONE (09:29)
[2018-12-29] MEDS ORDERED: fentaNYL PF VIAL 100 MCG/2 ML VIAL ONE (09:29)
[2018-12-29] MEDS ORDERED: HEPARIN for IV BOLUS 10,000 UNIT/10 ML VIAL. ONE (09:29)
[2018-12-29] MEDS ORDERED: fentaNYL PF VIAL 100 MCG/2 ML VIAL IV ONE (10:00)
[2018-12-29] MEDS ORDERED: IODIXANOL 320 MG/ML 100 ML VIAL. IART ONE (10:00)
[2018-12-29] MEDS ORDERED: LIDOCAINE WITH 8.4% SOD BICARB 3 ML DISP.SYRIN. IJ ONE (10:00)
[2018-12-29] MEDS ORDERED: MIDAZOLAM HCL/PF 2 MG/2 ML VIAL. IV ONE (10:00)
--- NOTE | 2018-12-29 10:11 | PDOC ---
Infectious Disease Note Subjective: Subjective pt off unit for IR study Vital Signs: Vital Signs Vital Signs Date Time Temp Pulse Resp B/P (MAP) Pulse Ox O2 Delivery O2 Flow Rate FiO2 12/29/18 07:48 Nasal Cannula 2.0 12/29/18 07:00 98.4 85 18 116/56 (76) 97 98.4 Physical Exam: PHYSICAL EXAM not done Medications: Inpatient Meds: Current Medications Medications (Trade) Dose Ordered Sig/Becki Start Time Stop Time Status Last Admin Dose Admin Acetaminophen (Tylenol) 500 mg 1X PRN PRN 12/28/18 08:15 12/29/18 08:14 DC Acetaminophen/ Hydrocodone Bitart (Lortab 10) 1 tab PRN Q6HRS PRN 12/27/18 16:30 Albumin Human 200 ml @ 200 mls/hr 1X PRN PRN 12/28/18 08:15 12/28/18 14:14 DC Albuterol Sulfate (Ventolin Neb Soln) 2.5 mg RTQID 12/27/18 20:00 12/29/18 07:44 2.5 MG Aspirin (Children'S Aspirin) 81 mg DAILY 12/28/18 09:00 12/28/18 08:11 81 MG Atorvastatin Calcium (Lipitor) 20 mg HS 12/27/18 21:00 12/28/18 20:57 20 MG Bisacodyl (Dulcolax Supp) 10 mg PRN DAILY PRN 12/27/18 16:30 Budesonide (Pulmicort) 0.5 mg RTBID 12/27/18 20:00 12/29/18 07:44 0.5 MG Calcium Carbonate/ Glycine (Tums) 500 mg PRN Q3HRS PRN 12/27/18 16:30 Carvedilol (Coreg) 6.25 mg BIDWMEALS 12/27/18 17:00 12/28/18 16:45 6.25 MG Cefepime HCl (Maxipime) 1 gm Q24H 12/27/18 18:00 12/28/18 16:46 1 GM Clonidine HCl (Catapres) 0.1 mg PRN Q1HR PRN 12/27/18 16:30 Diclofenac Sodium (Voltaren) 100 charan PRN QID PRN 12/27/18 16:30 Diphenhydramine HCl (Benadryl) 25 mg 1X PRN PRN 12/28/18 08:15 12/29/18 08:14 DC Docusate Sodium (Colace) 100 mg BID 12/27/18 21:00 12/28/18 20:57 100 MG Fentanyl Citrate (Fentanyl 2ml Vial) 100 mcg 1X ONCE 12/29/18 10:00 12/29/18 10:01 DC Ferrous Sulfate (Feosol) 325 mg TIDWMEALS 12/27/18 17:00 12/28/18 16:46 325 MG Heparin Sodium (Porcine) (Heparin Sodium) 10,000 unit STK-MED ONCE 12/29/18 09:29 12/29/18 09:30 DC Heparin Sodium/ Sodium Chloride (HEPARIN for ARTERIAL LINE FLUSH) 1,000 unit 1X ONCE 12/29/18 10:00 12/29/18 10:01 DC Info (PHARMACY MONITORING -- do not chart) 1 each PRN DAILY PRN 12/28/18 08:15 Insulin Human Lispro (HumaLOG) 10 units TIDWMEALS 12/27/18 17:30 12/28/18 17:42 10 UNITS Iodixanol (Visipaque 320) 100 ml 1X ONCE 12/29/18 10:00 12/29/18 10:01 DC Lactobacillus Rhamnosus (Culturelle) 1 cap BID 12/28/18 21:00 12/28/18 20:56 1 CAP Levothyroxine Sodium (Synthroid) 150 mcg DAILYAC 12/28/18 07:30 12/28/18 08:11 150 MCG Lidocaine HCl (Buffered Lidocaine 1%) 3 ml 1X ONCE 12/29/18 10:00 12/29/18 10:01 DC Losartan Potassium (Cozaar) 25 mg DAILY 12/28/18 09:00 Magnesium Hydroxide (Milk Of Magnesia) 2,400 mg PRN Q12HR PRN 12/27/18 16:30 Midazolam HCl (Versed) 2 mg 1X ONCE 12/29/18 10:00 12/29/18 10:01 DC Morphine Sulfate (Morphine Sulfate) 2 mg PRN Q2HR PRN 12/27/18 16:45 Non-Formulary Medication (Albuterol Sulfate (Ventolin Hfa Inhaler)) 2 puff QID 12/27/18 17:00 UNV Non-Formulary Medication (Fluticasone/ Vilanterol (Breo Ellipta 100-25 Mcg Inh)) 1 puff DAILY PRN 12/27/18 16:30 UNV Ondansetron HCl (Zofran) 4 mg PRN Q6HRS PRN 12/27/18 16:30 12/28/18 11:31 DC Oxycodone HCl (Roxicodone) 5 mg PRN Q3HRS PRN 12/27/18 16:30 12/29/18 03:06 5 MG Pantoprazole Sodium (Protonix) 40 mg DAILYAC 12/28/18 07:30 12/28/18 08:11 40 MG Sodium Polystyrene Sulfonate (Kayexalate) 15 gm 1X ONCE 12/28/18 05:45 12/28/18 05:46 DC 12/28/18 05:57 15 GM Sodium Chloride 1,000 ml @ 400 mls/hr Q2H30M PRN 12/28/18 08:10 12/28/18 20:09 DC Vancomycin HCl (Vanco Per Pharmacy) 1 each PRN DAILY PRN 12/27/18 17:15 12/28/18 14:31 1 EACH Vancomycin HCl (Vancomycin Random Level) 1 each 1X ONCE 12/28/18 06:00 12/28/18 06:01 DC 12/28/18 06:00 1 EACH Vancomycin HCl 1.5 gm/Sodium Chloride 500 ml @ 250 mls/hr 1X ONCE 12/27/18 17:30 12/27/18 19:29 DC 12/27/18 18:02 250 MLS/HR Vancomycin HCl 500 mg/Sodium Chloride 100 ml @ 100 mls/hr QMWF 12/30/18 16:00 Zolpidem Tartrate (Ambien) 5 mg PRN QHS PRN 12/27/18 16:30 Labs: Lab Laboratory Tests Test 12/28/18 13:46 12/28/18 17:32 12/28/18 20:39 12/29/18 07:22 Glucose (Fingerstick) 95 mg/dL (70-99) 235 mg/dL (70-99) 195 mg/dL (70-99) 194 mg/dL (70-99) Objective: Assessment: Lt thumb infection Lt 3rd finger dry eschar ESRD DM2 poorly controlled Plan: Plan of Care cont cefepime and vanco renal dosing for dialysis local wound care f/u c.s and labs vascular surgery following d/w MARCIN Manzano MD Dec 29, 2018 10:11
[2018-12-29] MEDS ORDERED: HEPARIN for IV BOLUS 10,000 UNIT/10 ML VIAL. IV ONE (10:30)
--- NOTE | 2018-12-29 10:35 | PDOC ---
PROGRESS NOTES Chief Complaint Chief Complaint 1. Cellulitis left thumb, unroofed at [facility]ound clinic, r.o osteomyelitis 2. COncerns for ischemic left hand 3. Left arm AV fistula 4. LEft third middle finger resolving cellulitis (reported self manipulation ) with eschar formation 5. ESRD MWF HD 6. AOCD 7. MAXIMILIAN< Obesity, hypothyroidism, HTN, CAD hx, lipids- chronic stable 8. DM 2 uncontroled - on OHA plus insulin -c heck [id number] 9. Indwelling ICD History of Present Illness History of Present Illness She is out eitehr having HD or tests [facility] now involved and note reviewed - concerns for ischemic left hand xray also reviewed, concerns for OM ESR is high BS and BP ok Lives at home, either HH with family or snu PLAn: Add mRI left hand r/o osteo Cont IV abx for the meantime ischemic work up by vasc sx Keep current BP and insulin regimen plus OHA (BS ok) Vitals Vitals Vital Signs Date Time Temp Pulse Resp B/P (MAP) Pulse Ox O2 Delivery O2 Flow Rate FiO2 12/29/18 07:48 Nasal Cannula 2.0 12/29/18 07:00 98.4 85 18 116/56 (76) 97 98.4 Physical Exam Physical Exam not done General: Alert, Oriented X3, Other Heart: Regular rate, Normal S1, Normal S2, No murmurs Lungs: Clear Abdomen: Normal bowel sounds, Soft, No tenderness Extremities: Other Skin: Other Labs LABS Laboratory Tests Test 12/28/18 13:46 12/28/18 17:32 12/28/18 20:39 12/29/18 07:22 Glucose (Fingerstick) 95 mg/dL (70-99) 235 mg/dL (70-99) 195 mg/dL (70-99) 194 mg/dL (70-99) Review of Systems Review of Systems out having tests Comment Review of Relevant I have reviewed the following items filippo (where applicable) has been applied. Labs Laboratory Tests Test 12/27/18 17:01 12/27/18 21:28 12/28/18 03:35 12/28/18 07:27 Glucose (Fingerstick) 292 mg/dL (70-99) 242 mg/dL (70-99) 292 mg/dL (70-99) White Blood Count 16.1 x10^3/uL (4.0-11.0) Red Blood Count 3.33 x10^6/uL (4.30-5.70) Hemoglobin 10.5 g/dL (13.0-17.5) Hematocrit 34.9 % (39.0-53.0) Mean Corpuscular Volume 105 fL (79-100) Mean Corpuscular Hemoglobin 32 pg (25-35) Mean Corpuscular Hemoglobin Concent 30 g/dL (31-37) Red Cell Distribution Width 16.0 % (11.5-14.5) Platelet Count 321 x10^3/uL (140-400) Neutrophils (%) (Auto) 87 % (31-73) Lymphocytes (%) (Auto) 7 % (24-48) Monocytes (%) (Auto) 5 % (0-9) Eosinophils (%) (Auto) 1 % (0-3) Basophils (%) (Auto) 1 % (0-3) Neutrophils # (Auto) 14.0 x10^3/uL (1.8-7.7) Lymphocytes # (Auto) 1.2 x10^3/uL (1.0-4.8) Monocytes # (Auto) 0.7 x10^3/uL (0.0-1.1) Eosinophils # (Auto) 0.1 x10^3/uL (0.0-0.7) Basophils # (Auto) 0.1 x10^3/uL (0.0-0.2) Segmented Neutrophils % 84 % (35-66) Band Neutrophils % 5 % (0-9) Lymphocytes % 7 % (24-48) Monocytes % 1 % (0-10) Eosinophils % 1 % (0-5) Basophils % 2 % (0-3) Platelet Estimate Adequate (ADEQUATE) Anisocytosis Present Macrocytosis Present Erythrocyte Sedimentation Rate 61 (0-15) Prothrombin Time 15.9 SEC (11.7-14.0) Prothromb Time International Ratio 1.3 (0.8-1.1) Sodium Level 136 mmol/L (136-145) Potassium Level 6.2 mmol/L (3.5-5.1) Chloride Level 100 mmol/L (98-107) Carbon Dioxide Level 23 mmol/L (21-32) Anion Gap 13 (6-14) Blood Urea Nitrogen 42 mg/dL (8-26) Creatinine 8.0 mg/dL (0.7-1.3) Estimated GFR (Cockcroft-Gault) 8.1 Glucose Level 280 mg/dL (70-99) Calcium Level 7.8 mg/dL (8.5-10.1) Random Vancomycin Level 24.1 mcg/mL Test 12/28/18 13:46 12/28/18 17:32 12/28/18 20:39 12/29/18 07:22 Glucose (Fingerstick) 95 mg/dL (70-99) 235 mg/dL (70-99) 195 mg/dL (70-99) 194 mg/dL (70-99) Laboratory Tests Test 12/28/18 13:46 12/28/18 17:32 12/28/18 20:39 12/29/18 07:22 Glucose (Fingerstick) 95 mg/dL (70-99) 235 mg/dL (70-99) 195 mg/dL (70-99) 194 mg/dL (70-99) Medications Current Medications Ondansetron HCl (Zofran) 4 mg PRN Q6HRS PRN IV NAUSEA/VOMITING; Start 12/27/18 at 16:30 Calcium Carbonate/ Glycine (Tums) 500 mg PRN Q3HRS PRN PO UPSET STOMACH; Start 12/27/18 at 16:30 Zolpidem Tartrate (Ambien) 5 mg PRN QHS PRN PO INSOMNIA, MAY REPEAT IN 1HR; Start 12/27/18 at 16:30 Oxycodone HCl (Roxicodone) 5 mg PRN Q3HRS PRN PO BREAKTHROUGH PAIN Last administered on 12/29/18at 03:06; Start 12/27/18 at 16:30 Morphine Sulfate (Morphine Sulfate) 1 mg PRN Q1HR PRN IV PAIN; Start 12/27/18 at 16:30; Stop 12/27/18 at 16:39; Status DC Acetaminophen (Tylenol) 650 mg PRN Q6HRS PRN PO Headaches, Temp > 101.5F; Start 12/27/18 at 16:30 Docusate Sodium (Colace) 100 mg BID PO Last administered on 12/28/18at 20:57; Start 12/27/18 at 21:00 Magnesium Hydroxide (Milk Of Magnesia) 2,400 mg PRN Q12HR PRN PO CONSTIPATION; Start 12/27/18 at 16:30 Bisacodyl (Dulcolax Supp) 10 mg PRN DAILY PRN [place] CONSTIPATION; Start 12/27/18 at 16:30 Ondansetron HCl (Zofran) 4 mg PRN Q6HRS PRN IVP NAUSEA/VOMITING; Start 12/27/18 at 16:30; Stop 12/28/18 at 11:31; Status DC Clonidine HCl (Catapres) 0.1 mg PRN Q1HR PRN PO HYPERTENSION; Start 12/27/18 at 16:30 Aspirin (Children'S Aspirin) 81 mg DAILY PO Last administered on 12/28/18at 08:11; Start 12/28/18 at 09:00 Atorvastatin Calcium (Lipitor) 20 mg HS PO Last administered on 12/28/18at 20:57; Start 12/27/18 at 21:00 Carvedilol (Coreg) 6.25 mg BIDWMEALS PO Last administered on 12/28/18at 16:45; Start 12/27/18 at 17:00 Diclofenac Sodium (Voltaren) 100 charan PRN QID PRN TP PAIN; Start 12/27/18 at 16:30 Ferrous Sulfate (Feosol) 325 mg TIDWMEALS PO Last administered on 12/28/18at 16:46; Start 12/27/18 at 17:00 Acetaminophen/ Hydrocodone Bitart (Lortab 10/325) 1 tab PRN Q6HRS PRN PO PAIN; Start 12/27/18 at 16:30 Levothyroxine Sodium (Synthroid) 150 mcg DAILYAC PO Last administered on 12/28/18at 08:11; Start 12/28/18 at 07:30 Losartan Potassium (Cozaar) 25 mg DAILY PO ; Start 12/28/18 at 09:00 Non-Formulary Medication (Albuterol Sulfate (Ventolin Hfa Inhaler)) 2 puff QID INH ; Start 12/27/18 at 17:00; Status UNV Non-Formulary Medication (Fluticasone/ Vilanterol (Breo Ellipta 100-25 Mcg Inh)) 1 puff DAILY PRN IH daily; Start 12/27/18 at 16:30; Status UNV Insulin Human Lispro (HumaLOG) 10 units TIDWMEALS SQ Last administered on 12/28/18at 17:42; Start 12/27/18 at 17:30 Pantoprazole Sodium (Protonix) 40 mg DAILYAC PO Last administered on 12/28/18at 08:11; Start 12/28/18 at 07:30 Albuterol Sulfate (Ventolin Neb Soln) 2.5 mg RTQID NEB Last administered on 12/29/18at 07:44; Start 12/27/18 at 20:00 Budesonide (Pulmicort) 0.5 mg RTBID NEB Last administered on 12/29/18at 07:44; Start 12/27/18 at 20:00 Morphine Sulfate (Morphine Sulfate) 2 mg PRN Q2HR PRN IV PAIN; Start 12/27/18 at 16:45 Cefepime HCl (Maxipime) 1 gm Q24H IVP Last administered on 12/28/18 16:46; Start 12/27/18 at 18:00 Vancomycin HCl (Vanco Per Pharmacy) 1 each PRN DAILY PRN MC SEE COMMENTS Last administered on 12/28/18at 14:31; Start 12/27/18 at 17:15 Vancomycin HCl 1.5 gm/Sodium Chloride 500 ml @ 250 mls/hr 1X ONCE IV Last ad ministered on 12/27/18at 18:02; Start 12/27/18 at 17:30; Stop 12/27/18 at 19:29; Status DC Vancomycin HCl (Vancomycin Random Level) 1 each 1X ONCE MC Last administered on 12/28/18at 06:00; Start 12/28/18 at 06:00; Stop 12/28/18 at 06:01; Status DC Sodium Polystyrene Sulfonate (Kayexalate) 15 gm 1X ONCE PO Last administered on 12/28/18at 05:57; Start 12/28/18 at 05:45; Stop 12/28/18 at 05:46; Status DC Sodium Chloride 1,000 ml @ 1,000 mls/hr Q1H PRN IV hypotension; Start 12/28/18 at 08:10; Stop 12/28/18 at 14:09; Status DC Albumin Human 200 ml @ 200 mls/hr 1X PRN PRN IV Hypotension; Start 12/28/18 at 08:15; Stop 12/28/18 at 14:14; Status DC Acetaminophen (Tylenol) 500 mg 1X PRN PRN PO MILD PAIN / TEMP; Start 12/28/18 at 08:15; Stop 12/29/18 at 08:14; Status DC Diphenhydramine HCl (Benadryl) 25 mg 1X PRN PRN IV ITCHING; Start 12/28/18 at 08:15; Stop 12/29/18 at 08:14; Status DC Diphenhydramine HCl (Benadryl) 25 mg 1X PRN PRN IV ITCHING; Start 12/28/18 at 08:15; Stop 12/29/18 at 08:14; Status DC Sodium Chloride 1,000 ml @ 400 mls/hr Q2H30M PRN IV PATENCY; Start 12/28/18 at 08:10; Stop 12/28/18 at 20:09; Status DC Info (PHARMACY MONITORING -- do not chart) 1 each PRN DAILY PRN MC SEE COMMENTS; Start 12/28/18 at 08:15 Vancomycin HCl 500 mg/Sodium Chloride 100 ml @ 100 mls/hr QMWF IV ; Start 12/30/18 at 16:00 Lactobacillus Rhamnosus (Culturelle) 1 cap BID PO Last administered on 12/28/18at 20:56; Start 12/28/18 at 21:00 Iodixanol (Visipaque 320) 100 ml STK-MED ONCE .ROUTE ; Start 12/29/18 at 09:27; Stop 12/29/18 at 09:27; Status DC Lidocaine HCl (Buffered Lidocaine 1%) 3 ml STK-MED ONCE .ROUTE ; Start 12/29/18 at 09:27; Stop 12/29/18 at 09:27; Status DC Heparin Sodium/ Sodium Chloride 500 ml @ As Directed STK-MED ONCE .ROUTE ; Start 12/29/18 at 09:27; Stop 12/29/18 at 09:27; Status DC Midazolam HCl (Versed) 2 mg STK-MED ONCE .ROUTE ; Start 12/29/18 at 09:29; Stop 12/29/18 at 09:29; Status DC Fentanyl Citrate (Fentanyl 2ml Vial) 100 mcg STK-MED ONCE .ROUTE ; Start 12/29/18 at 09:29; Stop 12/29/18 at 09:29; Status DC Heparin Sodium (Porcine) (Heparin Sodium) 10,000 unit STK-MED ONCE .ROUTE ; Start 12/29/18 at 09:29; Stop 12/29/18 at 09:30; Status DC Heparin Sodium/ Sodium Chloride (HEPARIN for ARTERIAL LINE FLUSH) 1,000 unit 1X ONCE IART Last administered on 12/29/18at 10:00; Start 12/29/18 at 10:00; Stop 12/29/18 at 10:01; Status DC Lidocaine HCl (Buffered Lidocaine 1%) 3 ml 1X ONCE IJ ; Start 12/29/18 at 10:00; Stop 12/29/18 at 10:01; Status DC Midazolam HCl (Versed) 2 mg 1X ONCE IV ; Start 12/29/18 at 10:00; Stop 12/29/18 at 10:01; Status DC Fentanyl Citrate (Fentanyl 2ml Vial) 100 mcg 1X ONCE IV ; Start 12/29/18 at 10:00; Stop 12/29/18 at 10:01; Status DC Iodixanol (Visipaque 320) 100 ml 1X ONCE IART ; Start 12/29/18 at 10:00; Stop 12/29/18 at 10:01; Status DC Heparin Sodium (Porcine) (Heparin Sodium) 3,000 unit 1X ONCE IV ; Start 12/29/18 at 10:30; Stop 12/29/18 at 10:31; Status UNV Active Scripts Active Reported Augmentin 875-125 Tablet (Amoxicillin/Potassium Clav) 1 Each Tablet 1 Tab PO BID Protonix (Pantoprazole Sodium) 20 Mg Tablet.dr 40 Mg PO DAILY Lipitor (Atorvastatin Calcium) 20 Mg Tablet 20 Mg PO HS Aspirin 81 Mg Tab.chew 1 Tab PO DAILY Losartan Potassium 50 Mg Tablet 25 Mg PO DAILY Tums (Calcium Carbonate) 200 Mg Tab.chew 2 Tab PO TIDAC Breo Ellipta 100-25 Mcg Inh (Fluticasone/Vilanterol) 1 Each Aer.pow.ba 1 Puff IH DAILY PRN Ventolin Hfa Inhaler (Albuterol Sulfate) 18 Gm Hfa.aer.ad 2 Puff INH QID Ferrous Sulfate 325 Mg Tablet 325 Mg PO TID Docusate Sodium 100 Mg Capsule 100 Mg PO BID Humulin R U-500 Kwikpen (Insulin Regular, Human) 500 Unit/1 Ml Insuln.pen 10 Unit SQ TIDAC U-500 Voltaren (Diclofenac Sodium) 100 Gm Gel..gram. 100 Gm TP PRN QID PRN [place] 10-325 Tablet (Acetaminophen/Hydrocodone Bitart) 1 Each Tablet 1 Tab PO PRN Q6HRS PRN Levothyroxine Sodium 150 Mcg Tablet 150 Mcg PO DAILYAC Carvedilol (Carvedilol) 6.25 Mg Tablet 6.25 Mg PO BIDWMEALS Vitals/I & O Vital Sign - Last 24 Hours 12/28/18 12/28/18 12/28/18 12/28/18 10:36 11:38 11:38 15:00 Temp 97.7 97.7 97.7 97.7 Pulse 84 80 Resp 17 17 B/P (MAP) 122/58 (79) 119/60 (79) Pulse Ox 95 98 96 O2 Delivery Nasal Cannula Nasal Cannula Nasal Cannula Nasal Cannula O2 Flow Rate 2.0 2.0 2.0 2.0 12/28/18 12/28/18 12/28/18 12/28/18 16:20 16:45 16:45 17:43 Pulse 80 B/P (MAP) 119/60 Pulse Ox 98 O2 Delivery Nasal Cannula Nasal Cannula Nasal Cannula O2 Flow Rate 2.0 2.0 2.0 12/28/18 12/28/18 12/28/18 12/28/18 19:00 19:45 20:00 20:56 Temp 98.3 98.3 Pulse 93 Resp 18 B/P (MAP) 87/43 (58) Pulse Ox 97 O2 Delivery Nasal Cannula Nasal Cannula Nasal Cannula Nasal Cannula O2 Flow Rate 2.0 2.0 2.0 2.0 12/28/18 12/28/18 12/29/18 12/29/18 21:59 23:00 03:00 03:06 Temp 98.2 98.0 98.2 98.0 Pulse 84 84 Resp 18 18 B/P (MAP) 105/54 (71) 103/51 (68) Pulse Ox 98 98 O2 Delivery Nasal Cannula Nasal Cannula Nasal Cannula Nasal Cannula O2 Flow Rate 2.0 2.0 2.0 2.0 12/29/18 12/29/18 12/29/18 12/29/18 04:09 07:00 07:47 07:48 Temp 98.4 98.4 Pulse 85 Resp 18 B/P (MAP) 116/56 (76) Pulse Ox 97 O2 Delivery Nasal Cannula Nasal Cannula Nasal Cannula Nasal Cannula O2 Flow Rate 2.0 2.0 2.0 2.0 Intake and Output 12/28/18 12/28/18 12/29/18 15:00 23:00 07:00 Intake Total 300 ml 540 ml 0 ml Balance 300 ml 540 ml 0 ml KIMBERLY LOPEZ MD Dec 29, 2018 10:35
[2018-12-29] MEDS ORDERED: IODIXANOL 320 MG/ML 50ML VIAL. ONE (10:43)
[2018-12-29] MEDS ORDERED: IODIXANOL 320 MG/ML 50ML VIAL. IART ONE (10:45)
[2018-12-29] MEDS ORDERED: CONTRAST GIVEN. MC PRN (11:00)
[2018-12-29] MEDS: HYDROcodone/APAP 10/325 1 TAB TABLET PO PRN ×2 (11:26→17:51)
[2018-12-29] MEDS: FERROUS SULFATE 325 MG TABLET. PO SCH ×3 (12:00→17:38)
[2018-12-29] MEDS: INSULIN LISPRO 300 UNITS/3 ML VIAL. SQ SCH ×3 (12:00→17:49)
--- NOTE | 2018-12-29 12:27 | PDOC ---
SUBJECTIVE ROS Stable OBJECTIVE Vital Signs Vital Signs Date Time Temp Pulse Resp B/P (MAP) Pulse Ox O2 Delivery O2 Flow Rate FiO2 12/29/18 11:49 Nasal Cannula 2.0 12/29/18 11:26 16 12/29/18 11:00 98.1 87 120/58 (78) 97 98.1 I & 0 Intake and Output 12/29/18 07:00 Intake Total 840 ml Balance 840 ml Intake Oral 840 ml PHYSICAL EXAM Physical Exam General: NAD Cooperative HEENT: OM moist Lungs: Clear to auscultation, Non labored Heart: Regular rate, Normal S1, Normal S2 Abdomen: Normal bowel sounds, Soft Extremities: No edema Skin: No rashes, (rt breast lower outer and lower inner quadrant has post op sx wound with dressing on. + tenderness. ) Neuro: Grossly normal - no Weaver DIAGNOSIS/ASSESSMENT Assessment & Plan ESRD- MMF Dr. 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 COMMENT/RELEVANT DATA Meds Current Medications Medications (Trade) Dose Ordered Sig/Becki Start Time Stop Time Status Last Admin Dose Admin Acetaminophen (Tylenol) 500 mg 1X PRN PRN 12/28/18 08:15 12/29/18 08:14 DC Acetaminophen/ Hydrocodone Bitart (Lortab 10325) 1 tab PRN Q6HRS PRN 12/27/18 16:30 12/29/18 11:26 1 TAB Albumin Human 200 ml @ 200 mls/hr 1X PRN PRN 12/28/18 08:15 12/28/18 14:14 DC Albuterol Sulfate (Ventolin Neb Soln) 2.5 mg RTQID 12/27/18 20:00 12/29/18 11:47 2.5 MG Aspirin (Children'S Aspirin) 81 mg DAILY 12/28/18 09:00 12/28/18 08:11 81 MG Atorvastatin Calcium (Lipitor) 20 mg HS 12/27/18 21:00 12/28/18 20:57 20 MG Bisacodyl (Dulcolax Supp) 10 mg PRN DAILY PRN 12/27/18 16:30 Budesonide (Pulmicort) 0.5 mg RTBID 12/27/18 20:00 12/29/18 07:44 0.5 MG Calcium Carbonate/ Glycine (Tums) 500 mg PRN Q3HRS PRN 12/27/18 16:30 Carvedilol (Coreg) 6.25 mg BIDWMEALS 12/27/18 17:00 12/28/18 16:45 6.25 MG Cefepime HCl (Maxipime) 1 gm Q24H 12/27/18 18:00 12/28/18 16:46 1 GM Clonidine HCl (Catapres) 0.1 mg PRN Q1HR PRN 12/27/18 16:30 Diclofenac Sodium (Voltaren) 100 charan PRN QID PRN 12/27/18 16:30 Diphenhydramine HCl (Benadryl) 25 mg 1X PRN PRN 12/28/18 08:15 12/29/18 08:14 DC Docusate Sodium (Colace) 100 mg BID 12/27/18 21:00 12/28/18 20:57 100 MG Fentanyl Citrate (Fentanyl 2ml Vial) 100 mcg 1X ONCE 12/29/18 10:00 12/29/18 10:01 DC 12/29/18 10:00 50 MCG Ferrous Sulfate (Feosol) 325 mg TIDWMEALS 12/27/18 17:00 12/29/18 12:04 325 MG Heparin Sodium (Porcine) (Heparin Sodium) 3,000 unit 1X ONCE 12/29/18 10:30 12/29/18 10:32 DC 12/29/18 10:30 3,000 UNIT Heparin Sodium/ Sodium Chloride (HEPARIN for ARTERIAL LINE FLUSH) 1,000 unit 1X ONCE 12/29/18 10:00 12/29/18 10:01 DC 12/29/18 10:00 1,000 UNIT Info (CONTRAST GIVEN -- Rx MONITORING) 1 each PRN DAILY PRN 12/29/18 11:00 12/31/18 10:59 Info (PHARMACY MONITORING -- do not chart) 1 each PRN DAILY PRN 12/28/18 08:15 Insulin Human Lispro (HumaLOG) 10 units TIDWMEALS 12/27/18 17:30 12/29/18 12:08 10 UNITS Iodixanol (Visipaque 320) 50 ml 1X ONCE 12/29/18 10:45 12/29/18 10:46 DC 12/29/18 10:45 3 ML Lactobacillus Rhamnosus (Culturelle) 1 cap BID 12/28/18 21:00 12/28/18 20:56 1 CAP Levothyroxine Sodium (Synthroid) 150 mcg DAILYAC 12/28/18 07:30 12/28/18 08:11 150 MCG Lidocaine HCl (Buffered Lidocaine 1%) 3 ml 1X ONCE 12/29/18 10:00 12/29/18 10:01 DC 12/29/18 10:00 1 ML Losartan Potassium (Cozaar) 25 mg DAILY 12/28/18 09:00 Magnesium Hydroxide (Milk Of Magnesia) 2,400 mg PRN Q12HR PRN 12/27/18 16:30 Midazolam HCl (Versed) 2 mg 1X ONCE 12/29/18 10:00 12/29/18 10:01 DC 12/29/18 10:00 1 MG Morphine Sulfate (Morphine Sulfate) 2 mg PRN Q2HR PRN 12/27/18 16:45 Non-Formulary Medication (Albuterol Sulfate (Ventolin Hfa Inhaler)) 2 puff QID 12/27/18 17:00 UNV Non-Formulary Medication (Fluticasone/ Vilanterol (Breo Ellipta 100-25 Mcg Inh)) 1 puff DAILY PRN 12/27/18 16:30 UNV Ondansetron HCl (Zofran) 4 mg PRN Q6HRS PRN 12/27/18 16:30 12/28/18 11:31 DC Oxycodone HCl (Roxicodone) 5 mg PRN Q3HRS PRN 12/27/18 16:30 12/29/18 03:06 5 MG Pantoprazole Sodium (Protonix) 40 mg DAILYAC 12/28/18 07:30 12/28/18 08:11 40 MG Sodium Polystyrene Sulfonate (Kayexalate) 15 gm 1X ONCE 12/28/18 05:45 12/28/18 05:46 DC 12/28/18 05:57 15 GM Sodium Chloride 1,000 ml @ 400 mls/hr Q2H30M PRN 12/28/18 08:10 12/28/18 20:09 DC Vancomycin HCl (Vanco Per Pharmacy) 1 each PRN DAILY PRN 12/27/18 17:15 12/28/18 14:31 1 EACH Vancomycin HCl (Vancomycin Random Level) 1 each 1X ONCE 12/28/18 06:00 12/28/18 06:01 DC 12/28/18 06:00 1 EACH Vancomycin HCl 1.5 gm/Sodium Chloride 500 ml @ 250 mls/hr 1X ONCE 12/27/18 17:30 12/27/18 19:29 DC 12/27/18 18:02 250 MLS/HR Vancomycin HCl 500 mg/Sodium Chloride 100 ml @ 100 mls/hr QMWF 12/30/18 16:00 Zolpidem Tartrate (Ambien) 5 mg PRN QHS PRN 12/27/18 16:30 Lab Laboratory Tests Test 12/28/18 13:46 12/28/18 17:32 12/28/18 20:39 12/29/18 07:22 Glucose (Fingerstick) 95 mg/dL (70-99) 235 mg/dL (70-99) 195 mg/dL (70-99) 194 mg/dL (70-99) Test 12/29/18 11:39 Glucose (Fingerstick) 165 mg/dL (70-99) Results All relevant outside records, renal labs, imaging studies, telemetry/EKG's were reviewed. RANI ERICKSON MD Dec 29, 2018 12:27
[2018-12-29 13:00] LABS: BASO # 0.1 x10^3/uL (0.0-0.2); BASO % 1 % (0-3); EOS # 0.2 x10^3/uL (0.0-0.7); EOS % 1 % (0-3); HEMATOCRIT 34.2 % (39.0-53.0); HEMOGLOBIN 10.5 g/dL (13.0-17.5); LYMPH # 1.3 x10^3/uL (1.0-4.8); LYMPH % 8 % (24-48); MEAN CORPUSCULAR HEMOGLOBIN 32 pg (25-35); MEAN CORPUSCULAR HGB CONC 31 g/dL (31-37); MEAN CORPUSCULAR VOLUME 103 fL (79-100); MONO % 6 % (0-9); NEUT # 12.7 x10^3/uL (1.8-7.7); NEUT % 84 % (31-73); PLATELET COUNT 317 x10^3/uL (140-400); RED BLOOD COUNT 3.31 x10^6/uL (4.30-5.70); RED CELL DISTRIBUTION WIDTH 15.6 % (11.5-14.5); WHITE BLOOD COUNT 15.2 x10^3/uL (4.0-11.0)
[2018-12-29 13:15] LABS: CALCIUM 7.8 mg/dL (8.5-10.1); CREATININE 5.9 mg/dL (0.7-1.3); GFR 11.6; POTASSIUM 3.9 mmol/L (3.5-5.1)
[2018-12-29] MEDS: VANCOMYCIN PER PHARMACY MC PRN (14:34)
--- NOTE | 2018-12-29 15:26 | NUR ---
Wound Care: Follow up with wound care to L thumb and 3rd fingers. Cleansed and dried. Dry slough to thumb, applied hydrogel and xeroform, wrapped with 4x4 gauze and stockinette. Betadine to L 3rd finger. IAD d/t loose stools to bilateral buttocks. Cleansed and applied barrier cream. Plan to follow up 01/02/19. OK to leave dressings in place until wednesday.
--- NOTE | 2018-12-29 15:39 | NUR ---
SW following pt. PT/OT recommends home with 24 hour care. Nurse navigator from [facility] will meet with pt today. SW will continue to follow.
--- NOTE | 2018-12-29 16:09 | RAD ---
1. Left upper extremity AV fistulogram 2. Left upper extremity angiography Discussion: 12/29/2018 1:47 PM The procedure was explained in its entirety to the patient or the patients designated physician relations representative by a member of the treatment team, including a discussion of the risks, benefits and commonly accepted alternatives to the procedure, as well as the expected consequences of no therapy whatsoever. Discussion of the risks included, but was not limited to, those that are most frequent and those that are rare but possibly severe or life-threatening, as well as the possibility of unforeseen complications. All elements of maximal sterile barrier technique including the use of a cap, mask, sterile gown, sterile gloves, large sterile sheet, appropriate hand hygiene, and 2% chlorhexidine for cutaneous antisepsis (or acceptable alternative antiseptic per current guidelines) were followed for this procedure. The left upper extremity was prepped and draped as described. The fistula was accessed directed towards arterial anastomosis. Fistulogram was were obtained. The anastomosis, and outflow vein in the forearm, upper arm are patent. The axillary, subclavian, and brachiocephalic veins are patent. SVC is patent. Pacemaking/ICD device is noted from a left subclavian approach which does not appear to impede flow. An angled Glidewire and 4 [place] angled glide catheter was advanced across the arterial anastomosis into the radial artery. Angiograms were performed. All flow from the radial artery was seen flowing into the fistula. No filling of the distal radial artery was seen on precompression views. Some retrograde filling of the artery was seen through the pulmonary arch. Following compression of the fistula filling of the radial artery could be achieved, though it was rather sluggish. The catheter was then manipulated into the more proximal brachial artery and angiography repeated. The ulnar artery appears to be patent. With compression, sluggish filling of the radial artery could be seen. The ulnar artery is patent. The deep palmar arch is small but patent.. Digital perfusion including the perfusion to the right thumb was seen. There is a collateral artery supplying flow to the right thumb, only seen on compression views. Overall findings are felt to be consistent with steal phenomenon. Total fluoroscopy time: 9.5 minutes. The Dose area product: 49 Gycm2 The procedures performed under conscious sedation including continuous cardiopulmonary monitoring via dedicated sedation nurse. [id number] sedation time: 50 minutes Impression: In the appropriate clinical setting, and radiographic findings are supportive of steal phenomena secondary to a patent left upper extremity AV fistula
[2018-12-29] MEDS: CEFEPIME HCL IV Push 1 GM VIAL. IVP SCH (17:39)
[2018-12-29] MEDS: ATORVASTATIN CALCIUM 20 MG TABLET PO SCH (20:53)
[2018-12-30] MEDS: HYDROcodone/APAP 10/325 1 TAB TABLET PO PRN ×3 (02:40→18:42)
[2018-12-30 03:00] VITALS: BP 107/55
[2018-12-30 07:00] VITALS: BP 97/45
[2018-12-30] MEDS: ALBUTEROL SULFATE 2.5 MG/3 ML NEBU. NEB SCH ×4 (07:45→20:02)
[2018-12-30] MEDS: BUDESONIDE 0.5 MG/2 ML NEBU. NEB SCH ×2 (07:46→20:02)
[2018-12-30] MEDS: PANTOPRAZOLE 40 MG TABLET.DR. PO SCH (08:12)
[2018-12-30] MEDS: FERROUS SULFATE 325 MG TABLET. PO SCH ×2 (08:12→12:00)
[2018-12-30] MEDS: ASPIRIN CHEWABLE 81 MG TABLET. PO SCH (08:12)
[2018-12-30] MEDS: LACTOBACILLUS RHAMNOSUS GG 1 CAPSULE. PO SCH ×2 (08:12→22:49)
[2018-12-30] MEDS: DOCUSATE SODIUM 100 MG CAPSULE. PO SCH ×2 (08:13→22:49)
[2018-12-30] MEDS: LEVOTHYROXINE 150 MCG TABLET PO SCH (08:15)
[2018-12-30] MEDS: INSULIN LISPRO 300 UNITS/3 ML VIAL. SQ SCH ×3 (08:18→20:05)
[2018-12-30] MEDS: LOSARTAN POTASSIUM 50 MG TABLET. PO SCH (09:00)
[2018-12-30] MEDS: CARVEDILOL 3.125 MG TABLET. PO SCH (09:00)
--- NOTE | 2018-12-30 09:47 | PDOC ---
Infectious Disease Note Subjective: Subjective Pt says feels ok still has pain in the lt thumb and lt 3rd dry ulcer got dressing done ROS: ROS Negative otherwise. Vital Signs: Vital Signs Vital Signs Date Time Temp Pulse Resp B/P (MAP) Pulse Ox O2 Delivery O2 Flow Rate FiO2 12/30/18 09:00 84 97/45 12/30/18 07:47 98 Nasal Cannula 2.0 12/30/18 03:00 97.7 18 97.7 Physical Exam: PHYSICAL EXAM GENERAL: Alert and oriented x 3 female, appears comfortable. HEENT: Anicteric, no thrush. Oral mucosa moist. NECK: Supple, no JVD. LUNGS: Clear bilaterally. HEART: S1, S2. No gallops. ABDOMEN: Soft, obese. Bowel sounds present, nontender. EXTREMITIES: Edema present, chronic. DERMATOLOGIC: Left hand with dressing in place,dry intact, Left third finger has dry eschar. No surrounding redness, no purulence. MUSCULOSKELETAL: No decrease in range of motion at the left wrist or elbow. NEUROLOGIC: Alert, awake, moves all 4 extremities. PSYCHIATRIC: Cooperative, appropriate mood and affect. Medications: Inpatient Meds: Current Medications Medications (Trade) Dose Ordered Sig/Becki Start Time Stop Time Status Last Admin Dose Admin Acetaminophen (Tylenol) 500 mg 1X PRN PRN 12/28/18 08:15 12/29/18 08:14 DC Acetaminophen/ Hydrocodone Bitart (Lortab 10/325) 1 tab PRN Q6HRS PRN 12/27/18 16:30 12/30/18 02:40 1 TAB Albumin Human 200 ml @ 200 mls/hr 1X PRN PRN 12/28/18 08:15 12/28/18 14:14 DC Albuterol Sulfate (Ventolin Neb Soln) 2.5 mg RTQID 12/27/18 20:00 12/30/18 07:45 2.5 MG Aspirin (Children'S Aspirin) 81 mg DAILY 12/28/18 09:00 12/30/18 08:12 81 MG Atorvastatin Calcium (Lipitor) 20 mg HS 12/27/18 21:00 12/29/18 20:53 20 MG Bisacodyl (Dulcolax Supp) 10 mg PRN DAILY PRN 12/27/18 16:30 Budesonide (Pulmicort) 0.5 mg RTBID 12/27/18 20:00 12/30/18 07:46 0.5 MG Calcium Carbonate/ Glycine (Tums) 500 mg PRN Q3HRS PRN 12/27/18 16:30 Carvedilol (Coreg) 3.125 mg BIDWMEALS 12/30/18 09:00 Cefepime HCl (Maxipime) 1 gm Q24H 12/27/18 18:00 12/29/18 17:39 1 GM Clonidine HCl (Catapres) 0.1 mg PRN Q1HR PRN 12/27/18 16:30 Diclofenac Sodium (Voltaren) 100 charan PRN QID PRN 12/27/18 16:30 Diphenhydramine HCl (Benadryl) 25 mg 1X PRN PRN 12/28/18 08:15 12/29/18 08:14 DC Docusate Sodium (Colace) 100 mg BID 12/27/18 21:00 12/30/18 08:13 100 MG Fentanyl Citrate (Fentanyl 2ml Vial) 100 mcg 1X ONCE 12/29/18 10:00 12/29/18 10:01 DC 12/29/18 10:00 50 MCG Ferrous Sulfate (Feosol) 325 mg TIDWMEALS 12/27/18 17:00 12/30/18 08:12 325 MG Heparin Sodium (Porcine) (Heparin Sodium) 3,000 unit 1X ONCE 12/29/18 10:30 12/29/18 10:32 DC 12/29/18 10:30 3,000 UNIT Heparin Sodium/ Sodium Chloride (HEPARIN for ARTERIAL LINE FLUSH) 1,000 unit 1X ONCE 12/29/18 10:00 12/29/18 10:01 DC 12/29/18 10:00 1,000 UNIT Info (CONTRAST GIVEN -- Rx MONITORING) 1 each PRN DAILY PRN 12/29/18 11:00 12/31/18 10:59 Info (PHARMACY MONITORING -- do not chart) 1 each PRN DAILY PRN 12/28/18 08:15 Insulin Glargine (Lantus Syringe) 10 unit ONCE ONCE 12/30/18 10:00 12/30/18 10:01 Insulin Human Lispro (HumaLOG) 10 units TIDWMEALS 12/27/18 17:30 12/30/18 08:18 10 UNITS Iodixanol (Visipaque 320) 50 ml 1X ONCE 12/29/18 10:45 12/29/18 10:46 DC 12/29/18 10:45 3 ML Lactobacillus Rhamnosus (Culturelle) 1 cap BID 12/28/18 21:00 12/30/18 08:12 1 CAP Levothyroxine Sodium (Synthroid) 150 mcg DAILYAC 12/28/18 07:30 12/30/18 08:15 150 MCG Lidocaine HCl (Buffered Lidocaine 1%) 3 ml 1X ONCE 12/29/18 10:00 12/29/18 10:01 DC 12/29/18 10:00 1 ML Losartan Potassium (Cozaar) 25 mg DAILY 12/28/18 09:00 Magnesium Hydroxide (Milk Of Magnesia) 2,400 mg PRN Q12HR PRN 12/27/18 16:30 Midazolam HCl (Versed) 2 mg 1X ONCE 12/29/18 10:00 12/29/18 10:01 DC 12/29/18 10:00 1 MG Morphine Sulfate (Morphine Sulfate) 2 mg PRN Q2HR PRN 12/27/18 16:45 Non-Formulary Medication (Albuterol Sulfate (Ventolin Hfa Inhaler)) 2 puff QID 12/27/18 17:00 UNV Non-Formulary Medication (Fluticasone/ Vilanterol (Breo Ellipta 100-25 Mcg Inh)) 1 puff DAILY PRN 12/27/18 16:30 UNV Ondansetron HCl (Zofran) 4 mg PRN Q6HRS PRN 12/27/18 16:30 12/28/18 11:31 DC Oxycodone HCl (Roxicodone) 5 mg PRN Q3HRS PRN 12/27/18 16:30 12/29/18 15:57 5 MG Pantoprazole Sodium (Protonix) 40 mg DAILYAC 12/28/18 07:30 12/30/18 08:12 40 MG Sodium Polystyrene Sulfonate (Kayexalate) 15 gm 1X ONCE 12/28/18 05:45 12/28/18 05:46 DC 12/28/18 05:57 15 GM Sodium Chloride 1,000 ml @ 400 mls/hr Q2H30M PRN 12/28/18 08:10 12/28/18 20:09 DC Vancomycin HCl (Vanco Per Pharmacy) 1 each PRN DAILY PRN 12/27/18 17:15 12/29/18 14:34 1 EACH Vancomycin HCl (Vancomycin Random Level) 1 each 1X ONCE 12/28/18 06:00 12/28/18 06:01 DC 12/28/18 06:00 1 EACH Vancomycin HCl 1.5 gm/Sodium Chloride 500 ml @ 250 mls/hr 1X ONCE 12/27/18 17:30 12/27/18 19:29 DC 12/27/18 18:02 250 MLS/HR Vancomycin HCl 500 mg/Sodium Chloride 100 ml @ 100 mls/hr QMWF 12/30/18 16:00 Zolpidem Tartrate (Ambien) 5 mg PRN QHS PRN 12/27/18 16:30 Labs: Lab Laboratory Tests Test 12/29/18 11:39 12/29/18 11:45 12/29/18 16:45 12/29/18 20:46 Glucose (Fingerstick) 165 mg/dL (70-99) 192 mg/dL (70-99) 244 mg/dL (70-99) White Blood Count 15.2 x10^3/uL (4.0-11.0) Red Blood Count 3.31 x10^6/uL (4.30-5.70) Hemoglobin 10.5 g/dL (13.0-17.5) Hematocrit 34.2 % (39.0-53.0) Mean Corpuscular Volume 103 fL (79-100) Mean Corpuscular Hemoglobin 32 pg (25-35) Mean Corpuscular Hemoglobin Concent 31 g/dL (31-37) Red Cell Distribution Width 15.6 % (11.5-14.5) Platelet Count 317 x10^3/uL (140-400) Neutrophils (%) (Auto) 84 % (31-73) Lymphocytes (%) (Auto) 8 % (24-48) Monocytes (%) (Auto) 6 % (0-9) Eosinophils (%) (Auto) 1 % (0-3) Basophils (%) (Auto) 1 % (0-3) Neutrophils # (Auto) 12.7 x10^3/uL (1.8-7.7) Lymphocytes # (Auto) 1.3 x10^3/uL (1.0-4.8) Monocytes # (Auto) 1.0 x10^3/uL (0.0-1.1) Eosinophils # (Auto) 0.2 x10^3/uL (0.0-0.7) Basophils # (Auto) 0.1 x10^3/uL (0.0-0.2) Sodium Level 138 mmol/L (136-145) Potassium Level 3.9 mmol/L (3.5-5.1) Chloride Level 98 mmol/L (98-107) Carbon Dioxide Level 31 mmol/L (21-32) Anion Gap 9 (6-14) Blood Urea Nitrogen 24 mg/dL (8-26) Creatinine 5.9 mg/dL (0.7-1.3) Estimated GFR (Cockcroft-Gault) 11.6 Glucose Level 181 mg/dL (70-99) Calcium Level 7.8 mg/dL (8.5-10.1) Test 12/30/18 08:14 Glucose (Fingerstick) 307 mg/dL (70-99) Objective: Assessment: Lt thumb infection, C/S GPC,GPR Lt 3rd finger dry eschar End-stage renal disease, on hemodialysis.thru LUE fistula, w/u for steal phenomenon Diabetes mellitus, uncontrolled. History of breast abscess with MSSA, Klebsiella and E. coli 04/2018. PPM in place. Plan: Plan of Care cont cefepime and vanco renal dosing for dialysis local wound care f/u c.s and labs vascular surgery following d/w daughters at bedside d/w MARCIN Manzano MD Dec 30, 2018 09:47
[2018-12-30] MEDS ORDERED: INSULIN GLARGINE SYRINGE. SQ ONE (10:00)
--- NOTE | 2018-12-30 10:19 | PDOC ---
PROGRESS NOTES Subjective Subjective Patient seen and examined in room. Family at bedside. Patient continues to have left 3rd finger and thumb pain. Tolerating diet. No nause or vomiting. No fever or chills. Objective Objective Vital Signs Date Time Temp Pulse Resp B/P (MAP) Pulse Ox O2 Delivery O2 Flow Rate FiO2 12/30/18 09:45 18 Nasal Cannula 2.0 12/30/18 09:00 84 97/45 12/30/18 07:47 98 12/30/18 07:00 97.5 97.5 Intake and Output 12/30/18 07:00 Intake Total 600 ml Output Total 0 ml Balance 600 ml Intake Oral 600 ml Output Urine Total 0 ml Physical Exam Physical Exam Awake and alert HRR Non-labored respirations Left forearm with palpable thrill in fistula. 3rd finger dry gangrenous ulcer, thumb with ischemic skin changes. Sensation intact, Motor intact. Plan Plan of Care Fistulogram: The left upper extremity was prepped and draped as described. The fistula was accessed directed towards arterial anastomosis. Fistulogram was were obtained. The anastomosis, and outflow vein in the forearm, upper arm are patent. The axillary, subclavian, and brachiocephalic veins are patent. SVC is patent. Pacemaking/ICD device is noted from a left subclavian approach which does not appear to impede flow. An angled Glidewire and 4 [place] angled glide catheter was advanced across the arterial anastomosis into the radial artery. Angiograms were performed. All flow from the radial artery was seen flowing into the fistula. No filling of the distal radial artery was seen on precompression views. Some retrograde filling of the artery was seen through the pulmonary arch. Following compression of the fistula filling of the radial artery could be achieved, though it was rather sluggish. The catheter was then manipulated into the more proximal brachial artery and angiography repeated. The ulnar artery appears to be patent. With compression, sluggish filling of the radial artery could be seen. The ulnar artery is patent. The deep palmar arch is small but patent.. Digital perfusion including the perfusion to the right thumb was seen. There is a collateral artery supplying flow to the right thumb, only seen on compression views. Overall findings are felt to be consistent with steal phenomenon. 68 y/o woman with DM and a left forearm AVF with evidence of wounds on the left hand (thumb and 3rd finger) associated with some pain in the thumb. Fistulogram findings consistent with steal phenomenon. Discussed results with Dr. Barnett, he will review images and make recommendations regarding plan of care. Patient will likely need revascularization or fistula ligation to improve flow to hand. Will order vein mapping right arm for potential A-V access. Recommend continued protection and local wound care to left hand. Will defer any debridement until improved arterial flow to left hand. Comment Review of Relevant I have reviewed the following items filippo (where applicable) has been applied. Labs Laboratory Tests Test 12/28/18 13:46 12/28/18 17:32 12/28/18 20:39 12/29/18 07:22 Glucose (Fingerstick) 95 mg/dL (70-99) 235 mg/dL (70-99) 195 mg/dL (70-99) 194 mg/dL (70-99) Test 12/29/18 11:39 12/29/18 11:45 12/29/18 16:45 12/29/18 20:46 Glucose (Fingerstick) 165 mg/dL (70-99) 192 mg/dL (70-99) 244 mg/dL (70-99) White Blood Count 15.2 x10^3/uL (4.0-11.0) Red Blood Count 3.31 x10^6/uL (4.30-5.70) Hemoglobin 10.5 g/dL (13.0-17.5) Hematocrit 34.2 % (39.0-53.0) Mean Corpuscular Volume 103 fL (79-100) Mean Corpuscular Hemoglobin 32 pg (25-35) Mean Corpuscular Hemoglobin Concent 31 g/dL (31-37) Red Cell Distribution Width 15.6 % (11.5-14.5) Platelet Count 317 x10^3/uL (140-400) Neutrophils (%) (Auto) 84 % (31-73) Lymphocytes (%) (Auto) 8 % (24-48) Monocytes (%) (Auto) 6 % (0-9) Eosinophils (%) (Auto) 1 % (0-3) Basophils (%) (Auto) 1 % (0-3) Neutrophils # (Auto) 12.7 x10^3/uL (1.8-7.7) Lymphocytes # (Auto) 1.3 x10^3/uL (1.0-4.8) Monocytes # (Auto) 1.0 x10^3/uL (0.0-1.1) Eosinophils # (Auto) 0.2 x10^3/uL (0.0-0.7) Basophils # (Auto) 0.1 x10^3/uL (0.0-0.2) Sodium Level 138 mmol/L (136-145) Potassium Level 3.9 mmol/L (3.5-5.1) Chloride Level 98 mmol/L (98-107) Carbon Dioxide Level 31 mmol/L (21-32) Anion Gap 9 (6-14) Blood Urea Nitrogen 24 mg/dL (8-26) Creatinine 5.9 mg/dL (0.7-1.3) Estimated GFR (Cockcroft-Gault) 11.6 Glucose Level 181 mg/dL (70-99) Calcium Level 7.8 mg/dL (8.5-10.1) Test 12/30/18 08:14 Glucose (Fingerstick) 307 mg/dL (70-99) Laboratory Tests Test 12/29/18 11:39 12/29/18 11:45 12/29/18 16:45 12/29/18 20:46 Glucose (Fingerstick) 165 mg/dL (70-99) 192 mg/dL (70-99) 244 mg/dL (70-99) White Blood Count 15.2 x10^3/uL (4.0-11.0) Red Blood Count 3.31 x10^6/uL (4.30-5.70) Hemoglobin 10.5 g/dL (13.0-17.5) Hematocrit 34.2 % (39.0-53.0) Mean Corpuscular Volume 103 fL (79-100) Mean Corpuscular Hemoglobin 32 pg (25-35) Mean Corpuscular Hemoglobin Concent 31 g/dL (31-37) Red Cell Distribution Width 15.6 % (11.5-14.5) Platelet Count 317 x10^3/uL (140-400) Neutrophils (%) (Auto) 84 % (31-73) Lymphocytes (%) (Auto) 8 % (24-48) Monocytes (%) (Auto) 6 % (0-9) Eosinophils (%) (Auto) 1 % (0-3) Basophils (%) (Auto) 1 % (0-3) Neutrophils # (Auto) 12.7 x10^3/uL (1.8-7.7) Lymphocytes # (Auto) 1.3 x10^3/uL (1.0-4.8) Monocytes # (Auto) 1.0 x10^3/uL (0.0-1.1) Eosinophils # (Auto) 0.2 x10^3/uL (0.0-0.7) Basophils # (Auto) 0.1 x10^3/uL (0.0-0.2) Sodium Level 138 mmol/L (136-145) Potassium Level 3.9 mmol/L (3.5-5.1) Chloride Level 98 mmol/L (98-107) Carbon Dioxide Level 31 mmol/L (21-32) Anion Gap 9 (6-14) Blood Urea Nitrogen 24 mg/dL (8-26) Creatinine 5.9 mg/dL (0.7-1.3) Estimated GFR (Cockcroft-Gault) 11.6 Glucose Level 181 mg/dL (70-99) Calcium Level 7.8 mg/dL (8.5-10.1) Test 12/30/18 08:14 Glucose (Fingerstick) 307 mg/dL (70-99) Microbiology 12/27/18 Aerobic Culture, Resulted Pending 12/27/18 Aerobic Culture Result 1 (MANPREET), Resulted Pending 12/27/18 Gram Stain - Final, Resulted 12/27/18 Gram Stain Result 1 (MANPREET) - Final, Resulted 12/27/18 Gram Stain Result 2 (MANPREET) - Final, Resulted 12/27/18 Gram Stain Result 3 (MANPREET) - Final, Resulted Medications Current Medications Ondansetron HCl (Zofran) 4 mg PRN Q6HRS PRN IV NAUSEA/VOMITING; Start 12/27/18 at 16:30 Calcium Carbonate/ Glycine (Tums) 500 mg PRN Q3HRS PRN PO UPSET STOMACH; Start 12/27/18 at 16:30 Zolpidem Tartrate (Ambien) 5 mg PRN QHS PRN PO INSOMNIA, MAY REPEAT IN 1HR; Start 12/27/18 at 16:30 Oxycodone HCl (Roxicodone) 5 mg PRN Q3HRS PRN PO BREAKTHROUGH PAIN Last administered on 12/29/18 15:57; Start 12/27/18 at 16:30 Morphine Sulfate (Morphine Sulfate) 1 mg PRN Q1HR PRN IV PAIN; Start 12/27/18 at 16:30; Stop 12/27/18 at 16:39; Status DC Acetaminophen (Tylenol) 650 mg PRN Q6HRS PRN PO Headaches, Temp > 101.5F; Start 12/27/18 at 16:30 Docusate Sodium (Colace) 100 mg BID PO Last administered on 12/30/18at 08:13; Start 12/27/18 at 21:00 Magnesium Hydroxide (Milk Of Magnesia) 2,400 mg PRN Q12HR PRN PO CONSTIPATION; Start 12/27/18 at 16:30 Bisacodyl (Dulcolax Supp) 10 mg PRN DAILY PRN ME CONSTIPATION; Start 12/27/18 at 16:30 Ondansetron HCl (Zofran) 4 mg PRN Q6HRS PRN IVP NAUSEA/VOMITING; Start 12/27/18 at 16:30; Stop 12/28/18 at 11:31; Status DC Clonidine HCl (Catapres) 0.1 mg PRN Q1HR PRN PO HYPERTENSION; Start 12/27/18 at 16:30 Aspirin (Children'S Aspirin) 81 mg DAILY PO Last administered on 12/30/18at 08:12; Start 12/28/18 at 09:00 Atorvastatin Calcium (Lipitor) 20 mg HS PO Last administered on 12/29/18at 20:53; Start 12/27/18 at 21:00 Carvedilol (Coreg) 6.25 mg BIDWMEALS PO Last administered on 12/29/18at 17:39; Start 12/27/18 at 17:00; Stop 12/30/18 at 09:02; Status DC Diclofenac Sodium (Voltaren) 100 charan PRN QID PRN TP PAIN; Start 12/27/18 at 16 :30 Ferrous Sulfate (Feosol) 325 mg TIDWMEALS PO Last administered on 12/30/18at 08:12; Start 12/27/18 at 17:00 Acetaminophen/ Hydrocodone Bitart (Lortab 10/325) 1 tab PRN Q6HRS PRN PO PAIN Last administered on 12/30/18 09:45; Start 12/27/18 at 16:30 Levothyroxine Sodium (Synthroid) 150 mcg DAILYAC PO Last administered on 12/30/18 08:15; Start 12/28/18 at 07:30 Losartan Potassium (Cozaar) 25 mg DAILY PO ; Start 12/28/18 at 09:00 Non-Formulary Medication (Albuterol Sulfate (Ventolin Hfa Inhaler)) 2 puff QID INH ; Start 12/27/18 at 17:00; Status UNV Non-Formulary Medication (Fluticasone/ Vilanterol (Breo Ellipta 100-25 Mcg Inh)) 1 puff DAILY PRN IH daily; Start 12/27/18 at 16:30; Status UNV Insulin Human Lispro (HumaLOG) 10 units TIDWMEALS SQ Last administered on 12/30/18 08:18; Start 12/27/18 at 17:30 Pantoprazole Sodium (Protonix) 40 mg DAILYAC PO Last administered on 12/30/18 08:12; Start 12/28/18 at 07:30 Albuterol Sulfate (Ventolin Neb Soln) 2.5 mg RTQID NEB Last administered on 07:45; Start 12/27/18 at 20:00 Budesonide (Pulmicort) 0.5 mg RTBID NEB Last administered on 12/30/18 07:46; Start 12/27/18 at 20:00 Morphine Sulfate (Morphine Sulfate) 2 mg PRN Q2HR PRN IV PAIN; Start 12/27/18 at 16:45 Cefepime HCl (Maxipime) 1 gm Q24H IVP Last administered on 12/29/18 17:39; Start 12/27/18 at 18:00 Vancomycin HCl (Vanco Per Pharmacy) 1 each PRN DAILY PRN MC SEE COMMENTS Last administered on 12/29/18 14:34; Start 12/27/18 at 17:15 Vancomycin HCl 1.5 gm/Sodium Chloride 500 ml @ 250 mls/hr 1X ONCE IV Last administered on 12/27/18 18:02; Start 12/27/18 at 17:30; Stop 12/27/18 at 19:29; Status DC Vancomycin HCl (Vancomycin Random Level) 1 each 1X ONCE MC Last administered on 10/23/19at 06:00; Start 12/28/18 at 06:00; Stop 12/28/18 at 06:01; Status DC Sodium Polystyrene Sulfonate (Kayexalate) 15 gm 1X ONCE PO Last administered on 12/28/18at 05:57; Start 12/28/18 at 05:45; Stop 12/28/18 at 05:46; Status DC Sodium Chloride 1,000 ml @ 1,000 mls/hr Q1H PRN IV hypotension; Start 12/28/18 at 08:10; Stop 12/28/18 at 14:09; Status DC Albumin Human 200 ml @ 200 mls/hr 1X PRN PRN IV Hypotension; Start 12/28/18 at 08:15; Stop 12/28/18 at 14:14; Status DC Acetaminophen (Tylenol) 500 mg 1X PRN PRN PO MILD PAIN / TEMP; Start 12/28/18 at 08:15; Stop 12/29/18 at 08:14; Status DC Diphenhydramine HCl (Benadryl) 25 mg 1X PRN PRN IV ITCHING; Start 12/28/18 at 08:15; Stop 12/29/18 at 08:14; Status DC Diphenhydramine HCl (Benadryl) 25 mg 1X PRN PRN IV ITCHING; Start 12/28/18 at 08:15; Stop 12/29/18 at 08:14; Status DC Sodium Chloride 1,000 ml @ 400 mls/hr Q2H30M PRN IV PATENCY; Start 12/28/18 at 08:10; Stop 12/28/18 at 20:09; Status DC Info (PHARMACY MONITORING -- do not chart) 1 each PRN DAILY PRN MC SEE COMMENTS; Start 12/28/18 at 08:15 Vancomycin HCl 500 mg/Sodium Chloride 100 ml @ 100 mls/hr QMWF IV ; Start 12/30/18 at 16:00 Lactobacillus Rhamnosus (Culturelle) 1 cap BID PO Last administered on 12/30/18at 08:12; Start 12/28/18 at 21:00 Iodixanol (Visipaque 320) 100 ml STK-MED ONCE .ROUTE ; Start 12/29/18 at 09:27; Stop 12/29/18 at 09:27; Status DC Lidocaine HCl (Buffered Lidocaine 1%) 3 ml STK-MED ONCE .ROUTE ; Start 12/29/18 at 09:27; Stop 12/29/18 at 09:27; Status DC Heparin Sodium/ Sodium Chloride 500 ml @ As Directed STK-MED ONCE .ROUTE ; Start 12/29/18 at 09:27; Stop 12/29/18 at 09:27; Status DC Midazolam HCl (Versed) 2 mg STK-MED ONCE .ROUTE ; Start 12/29/18 at 09:29; Stop 12/29/18 at 09:29; Status DC Fentanyl Citrate (Fentanyl 2ml Vial) 100 mcg STK-MED ONCE .ROUTE ; Start 12/29/18 at 09:29; Stop 12/29/18 at 09:29; Status DC Heparin Sodium (Porcine) (Heparin Sodium) 10,000 unit STK-MED ONCE .ROUTE ; Start 12/29/18 at 09:29; Stop 12/29/18 at 09:30; Status DC Heparin Sodium/ Sodium Chloride (HEPARIN for ARTERIAL LINE FLUSH) 1,000 unit 1X ONCE IART Last administered on 12/29/18at 10:00; Start 12/29/18 at 10:00; Stop 12/29/18 at 10:01; Status DC Lidocaine HCl (Buffered Lidocaine 1%) 3 ml 1X ONCE IJ Last administered on 12/29/18at 10:00; Start 12/29/18 at 10:00; Stop 12/29/18 at 10:01; Status DC Midazolam HCl (Versed) 2 mg 1X ONCE IV Last administered on 12/29/18at 10:00; Start 12/29/18 at 10:00; Stop 12/29/18 at 10:01; Status DC Fentanyl Citrate (Fentanyl 2ml Vial) 100 mcg 1X ONCE IV Last administered on 12/29/18at 10:00; Start 12/29/18 at 10:00; Stop 12/29/18 at 10:01; Status DC Iodixanol (Visipaque 320) 100 ml 1X ONCE IART Last administered on 12/29/18at 10:00; Start 12/29/18 at 10:00; Stop 12/29/18 at 10:01; Status DC Heparin Sodium (Porcine) (Heparin Sodium) 3,000 unit 1X ONCE IV Last administered on 12/29/18at 10:30; Start 12/29/18 at 10:30; Stop 12/29/18 at 10:32; Status DC Iodixanol (Visipaque 320) 50 ml STK-MED ONCE .ROUTE ; Start 12/29/18 at 10:43; Stop 12/29/18 at 10:43; Status DC Iodixanol (Visipaque 320) 50 ml 1X ONCE IART Last administered on 12/29/18at 10:45; Start 12/29/18 at 10:45; Stop 12/29/18 at 10:46; Status DC Info (CONTRAST GIVEN -- Rx MONITORING) 1 each PRN DAILY PRN MC SEE COMMENTS; Start 12/29/18 at 11:00; Stop 12/31/18 at 10:59 Carvedilol (Coreg) 3.125 mg BIDWMEALS PO ; Start 12/30/18 at 09:00 Insulin Glargine (Lantus Syringe) 20 unit QHS SQ ; Start 12/30/18 at 21:00 Insulin Glargine (Lantus Syringe) 10 unit ONCE ONCE SQ Last administered on 12/30/18at 09:48; Start 12/30/18 at 10:00; Stop 12/30/18 at 10:01; Status DC Active Scripts Active Reported Augmentin 875-125 Tablet (Amoxicillin/Potassium Clav) 1 Each Tablet 1 Tab PO BID Protonix (Pantoprazole Sodium) 20 Mg Tablet.dr 40 Mg PO DAILY Lipitor (Atorvastatin Calcium) 20 Mg Tablet 20 Mg PO HS Aspirin 81 Mg Tab.chew 1 Tab PO DAILY Losartan Potassium 50 Mg Tablet 25 Mg PO DAILY Tums (Calcium Carbonate) 200 Mg Tab.chew 2 Tab PO TIDAC Breo Ellipta 100-25 Mcg Inh (Fluticasone/Vilanterol) 1 Each Aer.pow.ba 1 Puff IH DAILY PRN Ventolin Hfa Inhaler (Albuterol Sulfate) 18 Gm Hfa.aer.ad 2 Puff INH QID Ferrous Sulfate 325 Mg Tablet 325 Mg PO TID Docusate Sodium 100 Mg Capsule 100 Mg PO BID Humulin R U-500 Kwikpen (Insulin Regular, Human) 500 Unit/1 Ml Insuln.pen 10 Unit SQ TIDAC U-500 Voltaren (Diclofenac Sodium) 100 Gm Gel..gram. 100 Gm TP PRN QID PRN [place] 10-325 Tablet (Acetaminophen/Hydrocodone Bitart) 1 Each Tablet 1 Tab PO PRN Q6HRS PRN Levothyroxine Sodium 150 Mcg Tablet 150 Mcg PO DAILYAC Carvedilol (Carvedilol) 6.25 Mg Tablet 6.25 Mg PO BIDWMEALS Vitals/I & O Vital Sign - Last 24 Hours 12/29/18 12/29/18 12/29/18 12/29/18 10:30 10:59 11:00 11:26 Temp 98.1 98.1 Pulse 86 87 Resp 18 19 14 16 B/P (MAP) 120/58 (78) Pulse Ox 98 97 97 O2 Delivery Nasal Cannula Nasal Cannula Nasal Cannula Room Air O2 Flow Rate 2.0 2.0 2.0 12/29/18 12/29/18 12/29/18 12/29/18 11:49 12:26 14:57 15:57 Temp 97.5 97.5 Pulse 86 Resp 12 18 14 B/P (MAP) 114/52 (72) Pulse Ox 97 98 98 O2 Delivery Nasal Cannula Nasal Cannula Nasal Cannula Nasal Cannula O2 Flow Rate 2.0 2.0 2.0 2.0 12/29/18 12/29/18 12/29/18 12/29/18 17:39 17:49 17:51 18:51 Pulse 86 Resp 14 16 B/P (MAP) 114/52 Pulse Ox 98 98 O2 Delivery Nasal Cannula Nasal Cannula Nasal Cannula O2 Flow Rate 2.0 2.0 2.0 12/29/18 12/29/18 12/29/18 12/29/18 19:00 20:00 20:19 23:00 Temp 98.4 98.0 98.4 98.0 Pulse 93 87 Resp 18 18 B/P (MAP) 107/48 (67) 104/35 (58) Pulse Ox 96 92 98 O2 Delivery Nasal Cannula Nasal Cannula Nasal Cannula Nasal Cannula O2 Flow Rate 2.0 2.0 2.0 2.0 12/30/18 12/30/18 12/30/18 12/30/18 02:40 03:00 03:40 07:00 Temp 97.7 97.5 97.7 97.5 Pulse 84 79 Resp 18 20 B/P (MAP) 107/55 (72) 97/45 (62) Pulse Ox 99 100 O2 Delivery Nasal Cannula Nasal Cannula Nasal Cannula Room Air O2 Flow Rate 2.0 2.0 2.0 12/30/18 12/30/18 12/30/18 12/30/18 07:47 09:00 09:00 09:45 Pulse 84 84 Resp 18 B/P (MAP) 97/45 97/45 Pulse Ox 98 O2 Delivery Nasal Cannula Nasal Cannula O2 Flow Rate 2.0 2.0 Intake and Output 12/29/18 12/29/18 12/30/18 15:00 23:00 07:00 Intake Total 500 ml 100 ml Output Total 0 ml Balance 500 ml 100 ml DOROTHY JOSEPH APRN Dec 30, 2018 10:19
[2018-12-30 11:00] VITALS: BP 114/58
--- NOTE | 2018-12-30 11:34 | PDOC ---
PROGRESS NOTES Chief Complaint Chief Complaint 1. Cellulitis left thumb, unroofed at Wound clinic, r.o osteomyelitis 2. 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 Left arm AV fistula 4. LEft third middle finger resolving cellulitis (reported self manipulation ) with eschar formation 5. ESRD MWF HD 6. AOCD 7. MAXIMILIAN< Obesity, hypothyroidism, HTN, CAD hx, lipids- chronic stable 8. DM 2 uncontrolled - on OHA plus insulin -c heck hgba1c 9. Indwelling ICD 10. HYPOTENSION - on BB plus .. History of Present Illness History of Present Illness [facility] sx plans of doing some procedure next week, as surgeon who does it is unavail this week Steal phenomenon showing on IR Imaging GEtting HD per renal BP low side, actually BS higjh side PLAN: Dec coreg to 3.125 from 6,.25 BID re hypotension LAntus 10 now then inc lantus 20 qhs - re hyperglycemia Cnt IV abx per ID - will be here over weekend HD per renal; COnt PT,.OT HD and wound care this weekend Dw Dtr HOme with HH is the plan on dc so far,, Vitals Vitals Vital Signs Date Time Temp Pulse Resp B/P (MAP) Pulse Ox O2 Delivery O2 Flow Rate FiO2 12/30/18 11:30 98 Nasal Cannula 2.0 12/30/18 09:45 18 12/30/18 09:00 84 97/45 12/30/18 07:00 97.5 97.5 Physical Exam Physical Exam GENERAL: Alert and oriented x 3 female, appears comfortable. HEENT: Anicteric, no thrush. Oral mucosa moist. NECK: Supple, no JVD. LUNGS: Clear bilaterally. HEART: S1, S2. No gallops. ABDOMEN: Soft, obese. Bowel sounds present, nontender. EXTREMITIES: Edema present, chronic. DERMATOLOGIC: Left hand with dressing in place,dry intact, Left third finger has dry eschar. No surrounding redness, no purulence. MUSCULOSKELETAL: No decrease in range of motion at the left wrist or elbow. NEUROLOGIC: Alert, awake, moves all 4 extremities. PSYCHIATRIC: Cooperative, appropriate mood and affect. General: Alert, Oriented X3, Other Heart: Regular rate, Normal S1, Normal S2, No murmurs Lungs: Clear Abdomen: Normal bowel sounds, Soft, No tenderness Extremities: Other Skin: Other Labs LABS Laboratory Tests Test 12/29/18 11:39 12/29/18 11:45 12/29/18 16:45 12/29/18 20:46 Glucose (Fingerstick) 165 mg/dL (70-99) 192 mg/dL (70-99) 244 mg/dL (70-99) White Blood Count 15.2 x10^3/uL (4.0-11.0) Red Blood Count 3.31 x10^6/uL (4.30-5.70) Hemoglobin 10.5 g/dL (13.0-17.5) Hematocrit 34.2 % (39.0-53.0) Mean Corpuscular Volume 103 fL (79-100) Mean Corpuscular Hemoglobin 32 pg (25-35) Mean Corpuscular Hemoglobin Concent 31 g/dL (31-37) Red Cell Distribution Width 15.6 % (11.5-14.5) Platelet Count 317 x10^3/uL (140-400) Neutrophils (%) (Auto) 84 % (31-73) Lymphocytes (%) (Auto) 8 % (24-48) Monocytes (%) (Auto) 6 % (0-9) Eosinophils (%) (Auto) 1 % (0-3) Basophils (%) (Auto) 1 % (0-3) Neutrophils # (Auto) 12.7 x10^3/uL (1.8-7.7) Lymphocytes # (Auto) 1.3 x10^3/uL (1.0-4.8) Monocytes # (Auto) 1.0 x10^3/uL (0.0-1.1) Eosinophils # (Auto) 0.2 x10^3/uL (0.0-0.7) Basophils # (Auto) 0.1 x10^3/uL (0.0-0.2) Sodium Level 138 mmol/L (136-145) Potassium Level 3.9 mmol/L (3.5-5.1) Chloride Level 98 mmol/L (98-107) Carbon Dioxide Level 31 mmol/L (21-32) Anion Gap 9 (6-14) Blood Urea Nitrogen 24 mg/dL (8-26) Creatinine 5.9 mg/dL (0.7-1.3) Estimated GFR (Cockcroft-Gault) 11.6 Glucose Level 181 mg/dL (70-99) Calcium Level 7.8 mg/dL (8.5-10.1) Test 12/30/18 08:14 Glucose (Fingerstick) 307 mg/dL (70-99) Review of Systems Review of Systems left thumb pain, weak, all else 14 pt is neg Comment Review of Relevant I have reviewed the following items filippo (where applicable) has been applied. Labs Laboratory Tests Test 12/28/18 13:46 12/28/18 17:32 12/28/18 20:39 12/29/18 07:22 Glucose (Fingerstick) 95 mg/dL (70-99) 235 mg/dL (70-99) 195 mg/dL (70-99) 194 mg/dL (70-99) Test 12/29/18 11:39 12/29/18 11:45 12/29/18 16:45 12/29/18 20:46 Glucose (Fingerstick) 165 mg/dL (70-99) 192 mg/dL (70-99) 244 mg/dL (70-99) White Blood Count 15.2 x10^3/uL (4.0-11.0) Red Blood Count 3.31 x10^6/uL (4.30-5.70) Hemoglobin 10.5 g/dL (13.0-17.5) Hematocrit 34.2 % (39.0-53.0) Mean Corpuscular Volume 103 fL (79-100) Mean Corpuscular Hemoglobin 32 pg (25-35) Mean Corpuscular Hemoglobin Concent 31 g/dL (31-37) Red Cell Distribution Width 15.6 % (11.5-14.5) Platelet Count 317 x10^3/uL (140-400) Neutrophils (%) (Auto) 84 % (31-73) Lymphocytes (%) (Auto) 8 % (24-48) Monocytes (%) (Auto) 6 % (0-9) Eosinophils (%) (Auto) 1 % (0-3) Basophils (%) (Auto) 1 % (0-3) Neutrophils # (Auto) 12.7 x10^3/uL (1.8-7.7) Lymphocytes # (Auto) 1.3 x10^3/uL (1.0-4.8) Monocytes # (Auto) 1.0 x10^3/uL (0.0-1.1) Eosinophils # (Auto) 0.2 x10^3/uL (0.0-0.7) Basophils # (Auto) 0.1 x10^3/uL (0.0-0.2) Sodium Level 138 mmol/L (136-145) Potassium Level 3.9 mmol/L (3.5-5.1) Chloride Level 98 mmol/L (98-107) Carbon Dioxide Level 31 mmol/L (21-32) Anion Gap 9 (6-14) Blood Urea Nitrogen 24 mg/dL (8-26) Creatinine 5.9 mg/dL (0.7-1.3) Estimated GFR (Cockcroft-Gault) 11.6 Glucose Level 181 mg/dL (70-99) Calcium Level 7.8 mg/dL (8.5-10.1) Test 12/30/18 08:14 Glucose (Fingerstick) 307 mg/dL (70-99) Laboratory Tests Test 12/29/18 11:39 12/29/18 11:45 12/29/18 16:45 12/29/18 20:46 Glucose (Fingerstick) 165 mg/dL (70-99) 192 mg/dL (70-99) 244 mg/dL (70-99) White Blood Count 15.2 x10^3/uL (4.0-11.0) Red Blood Count 3.31 x10^6/uL (4.30-5.70) Hemoglobin 10.5 g/dL (13.0-17.5) Hematocrit 34.2 % (39.0-53.0) Mean Corpuscular Volume 103 fL (79-100) Mean Corpuscular Hemoglobin 32 pg (25-35) Mean Corpuscular Hemoglobin Concent 31 g/dL (31-37) Red Cell Distribution Width 15.6 % (11.5-14.5) Platelet Count 317 x10^3/uL (140-400) Neutrophils (%) (Auto) 84 % (31-73) Lymphocytes (%) (Auto) 8 % (24-48) Monocytes (%) (Auto) 6 % (0-9) Eosinophils (%) (Auto) 1 % (0-3) Basophils (%) (Auto) 1 % (0-3) Neutrophils # (Auto) 12.7 x10^3/uL (1.8-7.7) Lymphocytes # (Auto) 1.3 x10^3/uL (1.0-4.8) Monocytes # (Auto) 1.0 x10^3/uL (0.0-1.1) Eosinophils # (Auto) 0.2 x10^3/uL (0.0-0.7) Basophils # (Auto) 0.1 x10^3/uL (0.0-0.2) Sodium Level 138 mmol/L (136-145) Potassium Level 3.9 mmol/L (3.5-5.1) Chloride Level 98 mmol/L (98-107) Carbon Dioxide Level 31 mmol/L (21-32) Anion Gap 9 (6-14) Blood Urea Nitrogen 24 mg/dL (8-26) Creatinine 5.9 mg/dL (0.7-1.3) Estimated GFR (Cockcroft-Gault) 11.6 Glucose Level 181 mg/dL (70-99) Calcium Level 7.8 mg/dL (8.5-10.1) Test 12/30/18 08:14 Glucose (Fingerstick) 307 mg/dL (70-99) Microbiology 12/27/18 Aerobic Culture, Resulted Pending 12/27/18 Aerobic Culture Result 1 (MANPREET), Resulted Pending 12/27/18 Gram Stain - Final, Resulted 12/27/18 Gram Stain Result 1 (MANPREET) - Final, Resulted 12/27/18 Gram Stain Result 2 (MANPREET) - Final, Resulted 12/27/18 Gram Stain Result 3 (MANPREET) - Final, Resulted Medications Current Medications Ondansetron HCl (Zofran) 4 mg PRN Q6HRS PRN IV NAUSEA/VOMITING; Start 12/27/18 at 16:30 Calcium Carbonate/ Glycine (Tums) 500 mg PRN Q3HRS PRN PO UPSET STOMACH; Start 12/27/18 at 16:30 Zolpidem Tartrate (Ambien) 5 mg PRN QHS PRN PO INSOMNIA, MAY REPEAT IN 1HR; Start 12/27/18 at 16:30 Oxycodone HCl (Roxicodone) 5 mg PRN Q3HRS PRN PO BREAKTHROUGH PAIN Last administered on 12/29/18at 15:57; Start 12/27/18 at 16:30 Morphine Sulfate (Morphine Sulfate) 1 mg PRN Q1HR PRN IV PAIN; Start 12/27/18 at 16:30; Stop 12/27/18 at 16:39; Status DC Acetaminophen (Tylenol) 650 mg PRN Q6HRS PRN PO Headaches, Temp > 101.5F; Start 12/27/18 at 16:30 Docusate Sodium (Colace) 100 mg BID PO Last administered on 12/30/18at 08:13; Start 12/27/18 at 21:00 Magnesium Hydroxide (Milk Of Magnesia) 2,400 mg PRN Q12HR PRN PO CONSTIPATION; Start 12/27/18 at 16:30 Bisacodyl (Dulcolax Supp) 10 mg PRN DAILY PRN [place] CONSTIPATION; Start 12/27/18 at 16:30 Ondansetron HCl (Zofran) 4 mg PRN Q6HRS PRN IVP NAUSEA/VOMITING; Start 12/27/18 at 16:30; Stop 12/28/18 at 11:31; Status DC Clonidine HCl (Catapres) 0.1 mg PRN Q1HR PRN PO HYPERTENSION; Start 12/27/18 at 16:30 Aspirin (Children'S Aspirin) 81 mg DAILY PO Last administered on 12/30/18at 08:12; Start 12/28/18 at 09:00 Atorvastatin Calcium (Lipitor) 20 mg HS PO Last administered on 12/29/18at 20:53; Start 12/27/18 at 21:00 Carvedilol (Coreg) 6.25 mg BIDWMEALS PO Last administered on 12/29/18at 17:39; Start 12/27/18 at 17:00; Stop 12/30/18 at 09:02; Status DC Diclofenac Sodium (Voltaren) 100 charan PRN QID PRN TP PAIN; Start 12/27/18 at 16:30 Ferrous Sulfate (Feosol) 325 mg TIDWMEALS PO Last administered on 12/30/18at 08:12; Start 12/27/18 at 17:00 Acetaminophen/ Hydrocodone Bitart (Lortab 10/325) 1 tab PRN Q6HRS PRN PO PAIN Last administered on 12/30/18at 09:45; Start 12/27/18 at 16:30 Levothyroxine Sodium (Synthroid) 150 mcg DAILYAC PO Last administered on 12/30/18 08:15; Start 12/28/18 at 07:30 Losartan Potassium (Cozaar) 25 mg DAILY PO ; Start 12/28/18 at 09:00 Non-Formulary Medication (Albuterol Sulfate (Ventolin Hfa Inhaler)) 2 puff QID INH ; Start 12/27/18 at 17:00; Status UNV Non-Formulary Medication (Fluticasone/ Vilanterol (Breo Ellipta 100-25 Mcg Inh)) 1 puff DAILY PRN IH daily; Start 12/27/18 at 16:30; Status UNV Insulin Human Lispro (HumaLOG) 10 units TIDWMEALS SQ Last administered on 12/30/18 08:18; Start 12/27/18 at 17:30 Pantoprazole Sodium (Protonix) 40 mg DAILYAC PO Last administered on 12/30/18 08:12; Start 12/28/18 at 07:30 Albuterol Sulfate (Ventolin Neb Soln) 2.5 mg RTQID NEB Last administered on 12/30/18 11:30; Start 12/27/18 at 20:00 Budesonide (Pulmicort) 0.5 mg RTBID NEB Last administered on 12/30/18 07:46; Start 12/27/18 at 20:00 Morphine Sulfate (Morphine Sulfate) 2 mg PRN Q2HR PRN IV PAIN; Start 12/27/18 at 16:45 Cefepime HCl (Maxipime) 1 gm Q24H IVP Last administered on 12/29/18 17:39; Start 12/27/18 at 18:00 Vancomycin HCl (Vanco Per Pharmacy) 1 each PRN DAILY PRN MC SEE COMMENTS Last administered on 12/29/18 14:34; Start 12/27/18 at 17:15 Vancomycin HCl 1.5 gm/Sodium Chloride 500 ml @ 250 mls/hr 1X ONCE IV Last administered on 12/27/18 18:02; Start 12/27/18 at 17:30; Stop 12/27/18 at 19:29; Status DC Vancomycin HCl (Vancomycin Random Level) 1 each 1X ONCE MC Last administered on 12/28/18at 06:00; Start 12/28/18 at 06:00; Stop 12/28/18 at 06:01; Status DC Sodium Polystyrene Sulfonate (Kayexalate) 15 gm 1X ONCE PO Last administered on 12/28/18at 05:57; Start 12/28/18 at 05:45; Stop 12/28/18 at 05:46; Status DC Sodium Chloride 1,000 ml @ 1,000 mls/hr Q1H PRN IV hypotension; Start 12/28/18 at 08:10; Stop 12/28/18 at 14:09; Status DC Albumin Human 200 ml @ 200 mls/hr 1X PRN PRN IV Hypotension; Start 12/28/18 at 08:15; Stop 12/28/18 at 14:14; Status DC Acetaminophen (Tylenol) 500 mg 1X PRN PRN PO MILD PAIN / TEMP; Start 12/28/18 at 08:15; Stop 12/29/18 at 08:14; Status DC Diphenhydramine HCl (Benadryl) 25 mg 1X PRN PRN IV ITCHING; Start 12/28/18 at 08:15; Stop 12/29/18 at 08:14; Status DC Diphenhydramine HCl (Benadryl) 25 mg 1X PRN PRN IV ITCHING; Start 12/28/18 at 08:15; Stop 12/29/18 at 08:14; Status DC Sodium Chloride 1,000 ml @ 400 mls/hr Q2H30M PRN IV PATENCY; Start 12/28/18 at 08:10; Stop 12/28/18 at 20:09; Status DC Info (PHARMACY MONITORING -- do not chart) 1 each PRN DAILY PRN MC SEE COMMENTS ; Start 12/28/18 at 08:15 Vancomycin HCl 500 mg/Sodium Chloride 100 ml @ 100 mls/hr QMWF IV ; Start 12/30/18 at 16:00 Lactobacillus Rhamnosus (Culturelle) 1 cap BID PO Last administered on 12/30/18at 08:12; Start 12/28/18 at 21:00 Iodixanol (Visipaque 320) 100 ml STK-MED ONCE .ROUTE ; Start 12/29/18 at 09:27; Stop 12/29/18 at 09:27; Status DC Lidocaine HCl (Buffered Lidocaine 1%) 3 ml STK-MED ONCE .ROUTE ; Start 12/29/18 at 09:27; Stop 12/29/18 at 09:27; Status DC Heparin Sodium/ Sodium Chloride 500 ml @ As Directed STK-MED ONCE .ROUTE ; Start 12/29/18 at 09:27; Stop 12/29/18 at 09:27; Status DC Midazolam HCl (Versed) 2 mg STK-MED ONCE .ROUTE ; Start 12/29/18 at 09:29; Stop 12/29/18 at 09:29; Status DC Fentanyl Citrate (Fentanyl 2ml Vial) 100 mcg STK-MED ONCE .ROUTE ; Start 12/29/18 at 09:29; Stop 12/29/18 at 09:29; Status DC Heparin Sodium (Porcine) (Heparin Sodium) 10,000 unit STK-MED ONCE .ROUTE ; Start 12/29/18 at 09:29; Stop 12/29/18 at 09:30; Status DC Heparin Sodium/ Sodium Chloride (HEPARIN for ARTERIAL LINE FLUSH) 1,000 unit 1X ONCE IART Last administered on 12/29/18at 10:00; Start 12/29/18 at 10:00; Stop 12/29/18 at 10:01; Status DC Lidocaine HCl (Buffered Lidocaine 1%) 3 ml 1X ONCE IJ Last administered on 12/29/18at 10:00; Start 12/29/18 at 10:00; Stop 12/29/18 at 10:01; Status DC Midazolam HCl (Versed) 2 mg 1X ONCE IV Last administered on 12/29/18at 10:00; Start 12/29/18 at 10:00; Stop 12/29/18 at 10:01; Status DC Fentanyl Citrate (Fentanyl 2ml Vial) 100 mcg 1X ONCE IV Last administered on 12/29/18at 10:00; Start 12/29/18 at 10:00; Stop 12/29/18 at 10:01; Status DC Iodixanol (Visipaque 320) 100 ml 1X ONCE IART Last administered on 12/29/18at 10:00; Start 12/29/18 at 10:00; Stop 12/29/18 at 10:01; Status DC Heparin Sodium (Porcine) (Heparin Sodium) 3,000 unit 1X ONCE IV Last administered on 12/29/18at 10:30; Start 12/29/18 at 10:30; Stop 12/29/18 at 10:32; Status DC Iodixanol (Visipaque 320) 50 ml STK-MED ONCE .ROUTE ; Start 12/29/18 at 10:43; Stop 12/29/18 at 10:43; Status DC Iodixanol (Visipaque 320) 50 ml 1X ONCE IART Last administered on 12/29/18at 10:45; Start 12/29/18 at 10:45; Stop 12/29/18 at 10:46; Status DC Info (CONTRAST GIVEN -- Rx MONITORING) 1 each PRN DAILY PRN MC SEE COMMENTS; Start 12/29/18 at 11:00; Stop 12/31/18 at 10:59 Carvedilol (Coreg) 3.125 mg BIDWMEALS PO ; Start 12/30/18 at 09:00 Insulin Glargine (Lantus Syringe) 20 unit QHS SQ ; Start 12/30/18 at 21:00 Insulin Glargine (Lantus Syringe) 10 unit ONCE ONCE SQ Last administered on 12/30/18at 09:48; Start 12/30/18 at 10:00; Stop 12/30/18 at 10:01; Status DC Active Scripts Active Reported Augmentin 875-125 Tablet (Amoxicillin/Potassium Clav) 1 Each Tablet 1 Tab PO BID Protonix (Pantoprazole Sodium) 20 Mg Tablet.dr 40 Mg PO DAILY Lipitor (Atorvastatin Calcium) 20 Mg Tablet 20 Mg PO HS Aspirin 81 Mg Tab.chew 1 Tab PO DAILY Losartan Potassium 50 Mg Tablet 25 Mg PO DAILY Tums (Calcium Carbonate) 200 Mg Tab.chew 2 Tab PO TIDAC Breo Ellipta 100-25 Mcg Inh (Fluticasone/Vilanterol) 1 Each Aer.pow.ba 1 Puff IH DAILY PRN Ventolin Hfa Inhaler (Albuterol Sulfate) 18 Gm Hfa.aer.ad 2 Puff INH QID Ferrous Sulfate 325 Mg Tablet 325 Mg PO TID Docusate Sodium 100 Mg Capsule 100 Mg PO BID Humulin R U-500 Kwikpen (Insulin Regular, Human) 500 Unit/1 Ml Insuln.pen 10 Unit SQ TIDAC U-500 Voltaren (Diclofenac Sodium) 100 Gm Gel..gram. 100 Gm TP PRN QID PRN [place] 10-325 Tablet (Acetaminophen/Hydrocodone Bitart) 1 Each Tablet 1 Tab PO PRN Q6HRS PRN Levothyroxine Sodium 150 Mcg Tablet 150 Mcg PO DAILYAC Carvedilol (Carvedilol) 6.25 Mg Tablet 6.25 Mg PO BIDWMEALS Vitals/I & O Vital Sign - Last 24 Hours 12/29/18 12/29/18 12/29/18 12/29/18 11:49 12:26 14:57 15:57 Temp 97.5 97.5 Pulse 86 Resp 12 18 14 B/P (MAP) 114/52 (72) Pulse Ox 97 98 98 O2 Delivery Nasal Cannula Nasal Cannula Nasal Cannula Nasal Cannula O2 Flow Rate 2.0 2.0 2.0 2.0 12/29/18 12/29/18 12/29/18 12/29/18 17:39 17:49 17:51 18:51 Pulse 86 Resp 14 16 B/P (MAP) 114/52 Pulse Ox 98 98 O2 Delivery Nasal Cannula Nasal Cannula Nasal Cannula O2 Flow Rate 2.0 2.0 2.0 12/29/18 12/29/18 12/29/18 12/29/18 19:00 20:00 20:19 23:00 Temp 98.4 98.0 98.4 98.0 Pulse 93 87 Resp 18 18 B/P (MAP) 107/48 (67) 104/35 (58) Pulse Ox 96 92 98 O2 Delivery Nasal Cannula Nasal Cannula Nasal Cannula Nasal Cannula O2 Flow Rate 2.0 2.0 2.0 2.0 12/30/18 12/30/18 12/30/18 12/30/18 02:40 03:00 03:40 07:00 Temp 97.7 97.5 97.7 97.5 Pulse 84 79 Resp 18 20 B/P (MAP) 107/55 (72) 97/45 (62) Pulse Ox 99 100 O2 Delivery Nasal Cannula Nasal Cannula Nasal Cannula Room Air O2 Flow Rate 2.0 2.0 2.0 12/30/18 12/30/18 12/30/18 12/30/18 07:47 09:00 09:00 09:45 Pulse 84 84 Resp 18 B/P (MAP) 97/45 97/45 Pulse Ox 98 O2 Delivery Nasal Cannula Nasal Cannula O2 Flow Rate 2.0 2.0 12/30/18 11:30 Pulse Ox 98 O2 Delivery Nasal Cannula O2 Flow Rate 2.0 Intake and Output 12/29/18 12/29/18 12/30/18 15:00 23:00 07:00 Intake Total 500 ml 100 ml Output Total 0 ml Balance 500 ml 100 ml KIMBERLY LOPEZ MD Dec 30, 2018 11:34
[2018-12-30] MEDS: VANCOMYCIN PER PHARMACY MC PRN (11:42)
[2018-12-30] MEDS ORDERED: IV NORMAL SALINE 1000ML BAG 1,000 ML IV PRN ×2 (12:21)
--- NOTE | 2018-12-30 12:24 | NUR ---
SW following for discharge planning. Discussed with RN, per Dr. Villar, pt will be staying through the weekend. [facility] has accepted pt for home health services. SW will continue to follow.
[2018-12-30] MEDS ORDERED: diphenhydrAMINE 50 MG/ML VIAL IV PRN ×2 (12:30)
[2018-12-30] MEDS ORDERED: DIALYSIS PATIENT. MC PRN (12:30)
--- NOTE | 2018-12-30 13:30 | PDOC ---
SUBJECTIVE ROS Stable , seen on HD OBJECTIVE Vital Signs Vital Signs Date Time Temp Pulse Resp B/P (MAP) Pulse Ox O2 Delivery O2 Flow Rate FiO2 12/30/18 11:30 98 Nasal Cannula 2.0 12/30/18 11:00 97.3 85 20 114/58 (76) 97.3 I & 0 Intake and Output 12/30/18 07:00 Intake Total 600 ml Output Total 0 ml Balance 600 ml Intake Oral 600 ml Output Urine Total 0 ml PHYSICAL EXAM Physical Exam General: NAD Cooperative HEENT: OM moist Lungs: Clear to auscultation, Non labored Heart: Regular rate, Normal S1, Normal S2 Abdomen: Normal bowel sounds, Soft Extremities: No edema Skin: No rashes, (rt breast lower outer and lower inner quadrant has post op sx wound with dressing on. + tenderness. ) Neuro: Grossly normal - no Weaver DIAGNOSIS/ASSESSMENT Assessment & Plan ESRD- MMF Dr. Giles , has been on HD for 3-4 years , No RRF Seen on HD, tolerating well, continue as ordered, Eddie Cárdenas Access- Currently Lt Forearm AVF Lt thumb infection- On Abx per ID ,Vascular following Fistulogram findings consistent with steal phenomenon. Patient will likely need revascularization or fistula ligation to improve flow to hand. Vein mapping right arm for potential A-V access ordered by vascular Debridement deferred until improved arterial flow to left hand. 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 COMMENT/RELEVANT DATA Meds Current Medications Medications (Trade) Dose Ordered Sig/Becki Start Time Stop Time Status Last Admin Dose Admin Acetaminophen (Tylenol) 500 mg 1X PRN PRN 12/28/18 08:15 12/29/18 08:14 DC Acetaminophen/ Hydrocodone Bitart (Lortab 10/325) 1 tab PRN Q6HRS PRN 12/27/18 16:30 12/30/18 09:45 1 TAB Albumin Human 200 ml @ 200 mls/hr 1X PRN PRN 12/28/18 08:15 12/28/18 14:14 DC Albuterol Sulfate (Ventolin Neb Soln) 2.5 mg RTQID 12/27/18 20:00 12/30/18 11:30 2.5 MG Aspirin (Children'S Aspirin) 81 mg DAILY 12/28/18 09:00 12/30/18 08:12 81 MG Atorvastatin Calcium (Lipitor) 20 mg HS 12/27/18 21:00 12/29/18 20:53 20 MG Bisacodyl (Dulcolax Supp) 10 mg PRN DAILY PRN 12/27/18 16:30 Budesonide (Pulmicort) 0.5 mg RTBID 12/27/18 20:00 12/30/18 07:46 0.5 MG Calcium Carbonate/ Glycine (Tums) 500 mg PRN Q3HRS PRN 12/27/18 16:30 Carvedilol (Coreg) 3.125 mg BIDWMEALS 12/30/18 09:00 Cefepime HCl (Maxipime) 1 gm Q24H 12/27/18 18:00 12/29/18 17:39 1 GM Clonidine HCl (Catapres) 0.1 mg PRN Q1HR PRN 12/27/18 16:30 Diclofenac Sodium (Voltaren) 100 charan PRN QID PRN 12/27/18 16:30 Diphenhydramine HCl (Benadryl) 25 mg 1X PRN PRN 12/30/18 12:30 12/31/18 12:29 Docusate Sodium (Colace) 100 mg BID 12/27/18 21:00 12/30/18 08:13 100 MG Fentanyl Citrate (Fentanyl 2ml Vial) 100 mcg 1X ONCE 12/29/18 10:00 12/29/18 10:01 DC 12/29/18 10:00 50 MCG Ferrous Sulfate (Feosol) 325 mg TIDWMEALS 12/27/18 17:00 12/30/18 08:12 325 MG Heparin Sodium (Porcine) (Heparin Sodium) 3,000 unit 1X ONCE 12/29/18 10:30 12/29/18 10:32 DC 12/29/18 10:30 3,000 UNIT Heparin Sodium/ Sodium Chloride (HEPARIN for ARTERIAL LINE FLUSH) 1,000 unit 1X ONCE 12/29/18 10:00 12/29/18 10:01 DC 12/29/18 10:00 1,000 UNIT Info (CONTRAST GIVEN -- Rx MONITORING) 1 each PRN DAILY PRN 12/29/18 11:00 12/31/18 10:59 Info (PHARMACY MONITORING -- do not chart) 1 each PRN DAILY PRN 12/30/18 12:30 Insulin Glargine (Lantus Syringe) 10 unit ONCE ONCE 12/30/18 10:00 12/30/18 10:01 DC 12/30/18 09:48 10 UNIT Insulin Human Lispro (HumaLOG) 10 units TIDWMEALS 12/27/18 17:30 12/30/18 08:18 10 UNITS Iodixanol (Visipaque 320) 50 ml 1X ONCE 12/29/18 10:45 12/29/18 10:46 DC 12/29/18 10:45 3 ML Lactobacillus Rhamnosus (Culturelle) 1 cap BID 12/28/18 21:00 12/30/18 08:12 1 CAP Levothyroxine Sodium (Synthroid) 150 mcg DAILYAC 12/28/18 07:30 12/30/18 08:15 150 MCG Lidocaine HCl (Buffered Lidocaine 1%) 3 ml 1X ONCE 12/29/18 10:00 12/29/18 10:01 DC 12/29/18 10:00 1 ML Losartan Potassium (Cozaar) 25 mg DAILY 12/28/18 09:00 Magnesium Hydroxide (Milk Of Magnesia) 2,400 mg PRN Q12HR PRN 12/27/18 16:30 Midazolam HCl (Versed) 2 mg 1X ONCE 12/29/18 10:00 12/29/18 10:01 DC 12/29/18 10:00 1 MG Morphine Sulfate (Morphine Sulfate) 2 mg PRN Q2HR PRN 12/27/18 16:45 Non-Formulary Medication (Albuterol Sulfate (Ventolin Hfa Inhaler)) 2 puff QID 12/27/18 17:00 UNV Non-Formulary Medication (Fluticasone/ Vilanterol (Breo Ellipta 100-25 Mcg Inh)) 1 puff DAILY PRN 12/27/18 16:30 UNV Ondansetron HCl (Zofran) 4 mg PRN Q6HRS PRN 12/27/18 16:30 12/28/18 11:31 DC Oxycodone HCl (Roxicodone) 5 mg PRN Q3HRS PRN 12/27/18 16:30 12/29/18 15:57 5 MG Pantoprazole Sodium (Protonix) 40 mg DAILYAC 12/28/18 07:30 12/30/18 08:12 40 MG Sodium Polystyrene Sulfonate (Kayexalate) 15 gm 1X ONCE 12/28/18 05:45 12/28/18 05:46 DC 12/28/18 05:57 15 GM Sodium Chloride 1,000 ml @ 400 mls/hr Q2H30M PRN 12/30/18 12:21 12/31/18 00:20 Vancomycin HCl (Vanco Per Pharmacy) 1 each PRN DAILY PRN 12/27/18 17:15 12/30/18 11:42 1 EACH Vancomycin HCl (Vancomycin Random Level) 1 each 1X ONCE 12/28/18 06:00 12/28/18 06:01 DC 12/28/18 06:00 1 EACH Vancomycin HCl 1.5 gm/Sodium Chloride 500 ml @ 250 mls/hr 1X ONCE 12/27/18 17:30 12/27/18 19:29 DC 12/27/18 18:02 250 MLS/HR Vancomycin HCl 500 mg/Sodium Chloride 100 ml @ 100 mls/hr QMWF 12/30/18 16:00 Zolpidem Tartrate (Ambien) 5 mg PRN QHS PRN 12/27/18 16:30 Lab Laboratory Tests Test 12/29/18 16:45 12/29/18 20:46 12/30/18 08:14 12/30/18 12:09 Glucose (Fingerstick) 192 mg/dL (70-99) 244 mg/dL (70-99) 307 mg/dL (70-99) 295 mg/dL (70-99) Results All relevant outside records, renal labs, imaging studies, telemetry/EKG's were reviewed. RANI ERICKSON MD Dec 30, 2018 13:30
[2018-12-30] MEDS: CEFEPIME HCL IV Push 1 GM VIAL. IVP SCH (18:00)
[2018-12-30 19:00] VITALS: BP 124/55
[2018-12-30] MEDS: VANCOMYCIN 500 MG in IV NORMAL SALINE 100ML 100 ML IV SCH (19:50)
[2018-12-30] MEDS ORDERED: INSULIN GLARGINE SYRINGE. SQ SCH (21:00)
[2018-12-30] MEDS: ATORVASTATIN CALCIUM 20 MG TABLET PO SCH (22:49)
[2018-12-30 23:00] VITALS: BP 128/52
[2018-12-30] MEDS ORDERED: INSULIN LISPRO 300 UNITS/3 ML VIAL. SQ ONE (23:00)
[2018-12-31] MEDS: HYDROcodone/APAP 10/325 1 TAB TABLET PO PRN (02:02)
[2018-12-31 03:13] VITALS: BP 109/49
[2018-12-31 04:37] LABS: BASO # 0.1 x10^3/uL (0.0-0.2); BASO % 1 % (0-3); EOS # 0.1 x10^3/uL (0.0-0.7); EOS % 1 % (0-3); HEMATOCRIT 34.4 % (39.0-53.0); HEMOGLOBIN 10.4 g/dL (13.0-17.5); LYMPH # 0.8 x10^3/uL (1.0-4.8); LYMPH % 5 % (24-48); MEAN CORPUSCULAR HEMOGLOBIN 31 pg (25-35); MEAN CORPUSCULAR HGB CONC 30 g/dL (31-37); MEAN CORPUSCULAR VOLUME 103 fL (79-100); MONO % 7 % (0-9); NEUT # 12.8 x10^3/uL (1.8-7.7); NEUT % 86 % (31-73); PLATELET COUNT 300 x10^3/uL (140-400); RED BLOOD COUNT 3.33 x10^6/uL (4.30-5.70); RED CELL DISTRIBUTION WIDTH 15.5 % (11.5-14.5); WHITE BLOOD COUNT 14.8 x10^3/uL (4.0-11.0)
[2018-12-31 04:50] LABS: CALCIUM 8.3 mg/dL (8.5-10.1); CREATININE 4.7 mg/dL (0.7-1.3); POTASSIUM 4.1 mmol/L (3.5-5.1)
[2018-12-31] MEDS: oxyCODONE IR 5 MG TABLET PO PRN ×4 (05:07→21:08)
[2018-12-31 07:00] VITALS: BP 104/43
[2018-12-31] MEDS: ALBUTEROL SULFATE 2.5 MG/3 ML NEBU. NEB SCH ×4 (07:15→20:11)
[2018-12-31] MEDS: BUDESONIDE 0.5 MG/2 ML NEBU. NEB SCH ×2 (07:18→20:11)
[2018-12-31] MEDS: CARVEDILOL 3.125 MG TABLET. PO SCH ×3 (08:00→16:44)
[2018-12-31] MEDS: FERROUS SULFATE 325 MG TABLET. PO SCH ×4 (08:00→16:44)
[2018-12-31] MEDS: LEVOTHYROXINE 150 MCG TABLET PO SCH (08:29)
[2018-12-31] MEDS: LACTOBACILLUS RHAMNOSUS GG 1 CAPSULE. PO SCH ×2 (08:29→21:08)
[2018-12-31] MEDS: ASPIRIN CHEWABLE 81 MG TABLET. PO SCH (08:29)
[2018-12-31] MEDS: PANTOPRAZOLE 40 MG TABLET.DR. PO SCH (08:29)
[2018-12-31] MEDS: DOCUSATE SODIUM 100 MG CAPSULE. PO SCH ×2 (08:29→21:08)
[2018-12-31] MEDS: LOSARTAN POTASSIUM 50 MG TABLET. PO SCH (08:34)
[2018-12-31] MEDS: INSULIN LISPRO 300 UNITS/3 ML VIAL. SQ SCH ×3 (08:34→16:50)
--- NOTE | 2018-12-31 09:10 | PDOC ---
PROGRESS NOTES Chief Complaint Chief Complaint 1. Cellulitis left thumb, unroofed at Wound clinic, r.o osteomyelitis 2. 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 Left arm AV fistula 4. LEft third middle finger resolving cellulitis (reported self manipulation ) with eschar formation 5. ESRD MWF HD 6. AOCD 7. MAXIMILIAN< Obesity, hypothyroidism, HTN, CAD hx, lipids- chronic stable 8. DM 2 uncontrolled - on OHA plus insulin -c heck hgba1c 9. Indwelling ICD 10. HYPOTENSION - on BB plus .. History of Present Illness History of Present Illness [facility] sx plans of doing some procedure next week, as surgeon who does it is unavail this week Steal phenomenon showing on IR Imaging GEtting HD per renal BP low side, actually BS high side still claims she is ambulating PLAN: coreg already decreased - low BP STOP losartan 25 Inc further LAntus to 30 units qhs Inc novolog to 15 from 10 TID with meals Cnt IV abx per ID - will be here over weekend HD per renal; COnt PT,.OT HD and wound care this weekend Dw Dtr HOme with [facility] is the plan on dc so far,, Vitals Vitals Vital Signs Date Time Temp Pulse Resp B/P (MAP) Pulse Ox O2 Delivery O2 Flow Rate FiO2 12/31/18 08:34 88 104/43 12/31/18 07:18 98 Nasal Cannula 2.0 12/31/18 07:00 97.9 20 97.9 Physical Exam Physical Exam GENERAL: Alert and oriented x 3 female, appears comfortable. HEENT: Anicteric, no thrush. Oral mucosa moist. NECK: Supple, no JVD. LUNGS: Clear bilaterally. HEART: S1, S2. No gallops. ABDOMEN: Soft, obese. Bowel sounds present, nontender. EXTREMITIES: Edema present, chronic. DERMATOLOGIC: Left hand with dressing in place,dry intact, Left third finger has dry eschar. No surrounding redness, no purulence. MUSCULOSKELETAL: No decrease in range of motion at the left wrist or elbow. NEUROLOGIC: Alert, awake, moves all 4 extremities. PSYCHIATRIC: Cooperative, appropriate mood and affect. General: Alert, Oriented X3, Other Heart: Regular rate, Normal S1, Normal S2, No murmurs Lungs: Clear Abdomen: Normal bowel sounds, Soft, No tenderness Extremities: Other Skin: Other Labs LABS Laboratory Tests Test 12/30/18 12:09 12/30/18 18:44 12/30/18 21:08 12/31/18 03:10 Glucose (Fingerstick) 295 mg/dL (70-99) 205 mg/dL (70-99) 307 mg/dL (70-99) White Blood Count 14.8 x10^3/uL (4.0-11.0) Red Blood Count 3.33 x10^6/uL (4.30-5.70) Hemoglobin 10.4 g/dL (13.0-17.5) Hematocrit 34.4 % (39.0-53.0) Mean Corpuscular Volume 103 fL (79-100) Mean Corpuscular Hemoglobin 31 pg (25-35) Mean Corpuscular Hemoglobin Concent 30 g/dL (31-37) Red Cell Distribution Width 15.5 % (11.5-14.5) Platelet Count 300 x10^3/uL (140-400) Neutrophils (%) (Auto) 86 % (31-73) Lymphocytes (%) (Auto) 5 % (24-48) Monocytes (%) (Auto) 7 % (0-9) Eosinophils (%) (Auto) 1 % (0-3) Basophils (%) (Auto) 1 % (0-3) Neutrophils # (Auto) 12.8 x10^3/uL (1.8-7.7) Lymphocytes # (Auto) 0.8 x10^3/uL (1.0-4.8) Monocytes # (Auto) 1.0 x10^3/uL (0.0-1.1) Eosinophils # (Auto) 0.1 x10^3/uL (0.0-0.7) Basophils # (Auto) 0.1 x10^3/uL (0.0-0.2) Sodium Level 141 mmol/L (136-145) Potassium Level 4.1 mmol/L (3.5-5.1) Chloride Level 101 mmol/L (98-107) Carbon Dioxide Level 29 mmol/L (21-32) Anion Gap 11 (6-14) Blood Urea Nitrogen 18 mg/dL (8-26) Creatinine 4.7 mg/dL (0.7-1.3) Estimated GFR (Cockcroft-Gault) 15.0 Glucose Level 206 mg/dL (70-99) Calcium Level 8.3 mg/dL (8.5-10.1) Test 12/31/18 08:01 Glucose (Fingerstick) 226 mg/dL (70-99) Review of Systems Review of Systems no complaint, just weak, left hand pain, all else 14 pt neg Comment Review of Relevant I have reviewed the following items filippo (where applicable) has been applied. Labs Laboratory Tests Test 12/29/18 11:39 12/29/18 11:45 12/29/18 16:45 12/29/18 20:46 Glucose (Fingerstick) 165 mg/dL (70-99) 192 mg/dL (70-99) 244 mg/dL (70-99) White Blood Count 15.2 x10^3/uL (4.0-11.0) Red Blood Count 3.31 x10^6/uL (4.30-5.70) Hemoglobin 10.5 g/dL (13.0-17.5) Hematocrit 34.2 % (39.0-53.0) Mean Corpuscular Volume 103 fL (79-100) Mean Corpuscular Hemoglobin 32 pg (25-35) Mean Corpuscular Hemoglobin Concent 31 g/dL (31-37) Red Cell Distribution Width 15.6 % (11.5-14.5) Platelet Count 317 x10^3/uL (140-400) Neutrophils (%) (Auto) 84 % (31-73) Lymphocytes (%) (Auto) 8 % (24-48) Monocytes (%) (Auto) 6 % (0-9) Eosinophils (%) (Auto) 1 % (0-3) Basophils (%) (Auto) 1 % (0-3) Neutrophils # (Auto) 12.7 x10^3/uL (1.8-7.7) Lymphocytes # (Auto) 1.3 x10^3/uL (1.0-4.8) Monocytes # (Auto) 1.0 x10^3/uL (0.0-1.1) Eosinophils # (Auto) 0.2 x10^3/uL (0.0-0.7) Basophils # (Auto) 0.1 x10^3/uL (0.0-0.2) Sodium Level 138 mmol/L (136-145) Potassium Level 3.9 mmol/L (3.5-5.1) Chloride Level 98 mmol/L (98-107) Carbon Dioxide Level 31 mmol/L (21-32) Anion Gap 9 (6-14) Blood Urea Nitrogen 24 mg/dL (8-26) Creatinine 5.9 mg/dL (0.7-1.3) Estimated GFR (Cockcroft-Gault) 11.6 Glucose Level 181 mg/dL (70-99) Calcium Level 7.8 mg/dL (8.5-10.1) Test 12/30/18 08:14 12/30/18 12:09 12/30/18 18:44 12/30/18 21:08 Glucose (Fingerstick) 307 mg/dL (70-99) 295 mg/dL (70-99) 205 mg/dL (70-99) 307 mg/dL (70-99) Test 12/31/18 03:10 12/31/18 08:01 White Blood Count 14.8 x10^3/uL (4.0-11.0) Red Blood Count 3.33 x10^6/uL (4.30-5.70) Hemoglobin 10.4 g/dL (13.0-17.5) Hematocrit 34.4 % (39.0-53.0) Mean Corpuscular Volume 103 fL (79-100) Mean Corpuscular Hemoglobin 31 pg (25-35) Mean Corpuscular Hemoglobin Concent 30 g/dL (31-37) Red Cell Distribution Width 15.5 % (11.5-14.5) Platelet Count 300 x10^3/uL (140-400) Neutrophils (%) (Auto) 86 % (31-73) Lymphocytes (%) (Auto) 5 % (24-48) Monocytes (%) (Auto) 7 % (0-9) Eosinophils (%) (Auto) 1 % (0-3) Basophils (%) (Auto) 1 % (0-3) Neutrophils # (Auto) 12.8 x10^3/uL (1.8-7.7) Lymphocytes # (Auto) 0.8 x10^3/uL (1.0-4.8) Monocytes # (Auto) 1.0 x10^3/uL (0.0-1.1) Eosinophils # (Auto) 0.1 x10^3/uL (0.0-0.7) Basophils # (Auto) 0.1 x10^3/uL (0.0-0.2) Sodium Level 141 mmol/L (136-145) Potassium Level 4.1 mmol/L (3.5-5.1) Chloride Level 101 mmol/L (98-107) Carbon Dioxide Level 29 mmol/L (21-32) Anion Gap 11 (6-14) Blood Urea Nitrogen 18 mg/dL (8-26) Creatinine 4.7 mg/dL (0.7-1.3) Estimated GFR (Cockcroft-Gault) 15.0 Glucose Level 206 mg/dL (70-99) Calcium Level 8.3 mg/dL (8.5-10.1) Glucose (Fingerstick) 226 mg/dL (70-99) Laboratory Tests Test 12/30/18 12:09 12/30/18 18:44 12/30/18 21:08 12/31/18 03:10 Glucose (Fingerstick) 295 mg/dL (70-99) 205 mg/dL (70-99) 307 mg/dL (70-99) White Blood Count 14.8 x10^3/uL (4.0-11.0) Red Blood Count 3.33 x10^6/uL (4.30-5.70) Hemoglobin 10.4 g/dL (13.0-17.5) Hematocrit 34.4 % (39.0-53.0) Mean Corpuscular Volume 103 fL (79-100) Mean Corpuscular Hemoglobin 31 pg (25-35) Mean Corpuscular Hemoglobin Concent 30 g/dL (31-37) Red Cell Distribution Width 15.5 % (11.5-14.5) Platelet Count 300 x10^3/uL (140-400) Neutrophils (%) (Auto) 86 % (31-73) Lymphocytes (%) (Auto) 5 % (24-48) Monocytes (%) (Auto) 7 % (0-9) Eosinophils (%) (Auto) 1 % (0-3) Basophils (%) (Auto) 1 % (0-3) Neutrophils # (Auto) 12.8 x10^3/uL (1.8-7.7) Lymphocytes # (Auto) 0.8 x10^3/uL (1.0-4.8) Monocytes # (Auto) 1.0 x10^3/uL (0.0-1.1) Eosinophils # (Auto) 0.1 x10^3/uL (0.0-0.7) Basophils # (Auto) 0.1 x10^3/uL (0.0-0.2) Sodium Level 141 mmol/L (136-145) Potassium Level 4.1 mmol/L (3.5-5.1) Chloride Level 101 mmol/L (98-107) Carbon Dioxide Level 29 mmol/L (21-32) Anion Gap 11 (6-14) Blood Urea Nitrogen 18 mg/dL (8-26) Creatinine 4.7 mg/dL (0.7-1.3) Estimated GFR (Cockcroft-Gault) 15.0 Glucose Level 206 mg/dL (70-99) Calcium Level 8.3 mg/dL (8.5-10.1) Test 12/31/18 08:01 Glucose (Fingerstick) 226 mg/dL (70-99) Microbiology 12/27/18 Aerobic Culture - Preliminary, Resulted 12/27/18 Aerobic Culture Result 1 (MANPREET) - Preliminary, Resulted 12/27/18 Aerobic Culture Result 2 (MANPREET) - Preliminary, Resulted 12/27/18 Gram Stain - Final, Resulted 12/27/18 Gram Stain Result 1 (MANPREET) - Final, Resulted 12/27/18 Gram Stain Result 2 (MAPNREET) - Final, Resulted 12/27/18 Gram Stain Result 3 (MANPREET) - Final, Resulted Medications Current Medications Ondansetron HCl (Zofran) 4 mg PRN Q6HRS PRN IV NAUSEA/VOMITING; Start 12/27/18 at 16:30 Calcium Carbonate/ Glycine (Tums) 500 mg PRN Q3HRS PRN PO UPSET STOMACH; Start 12/27/18 at 16:30 Zolpidem Tartrate (Ambien) 5 mg PRN QHS PRN PO INSOMNIA, MAY REPEAT IN 1HR; Start 12/27/18 at 16:30 Oxycodone HCl (Roxicodone) 5 mg PRN Q3HRS PRN PO BREAKTHROUGH PAIN Last administered on 12/31/18at 05:07; Start 12/27/18 at 16:30 Morphine Sulfate (Morphine Sulfate) 1 mg PRN Q1HR PRN IV PAIN; Start 12/27/18 at 16:30; Stop 12/27/18 at 16:39; Status DC Acetaminophen (Tylenol) 650 mg PRN Q6HRS PRN PO Headaches, Temp > 101.5F; Start 12/27/18 at 16:30 Docusate Sodium (Colace) 100 mg BID PO Last administered on 12/31/18at 08:29; Start 12/27/18 at 21:00 Magnesium Hydroxide (Milk Of Magnesia) 2,400 mg PRN Q12HR PRN PO CONSTIPATION; Start 12/27/18 at 16:30 Bisacodyl (Dulcolax Supp) 10 mg PRN DAILY PRN ID CONSTIPATION; Start 12/27/18 at 16:30 Ondansetron HCl (Zofran) 4 mg PRN Q6HRS PRN IVP NAUSEA/VOMITING; Start at 16:30; Stop 12/28/18 at 11:31; Status DC Clonidine HCl (Catapres) 0.1 mg PRN Q1HR PRN PO HYPERTENSION; Start 12/27/18 at 16:30 Aspirin (Children'S Aspirin) 81 mg DAILY PO Last administered on 12/31/18at 08:29; Start 12/28/18 at 09:00 Atorvastatin Calcium (Lipitor) 20 mg HS PO Last administered on 12/30/18at 22:49; Start 12/27/18 at 21:00 Carvedilol (Coreg) 6.25 mg BIDWMEALS PO Last administered on 12/29/18at 17:39; Start 12/27/18 at 17:00; Stop 12/30/18 at 09:02; Status DC Diclofenac Sodium (Voltaren) 100 charan PRN QID PRN TP PAIN; Start 12/27/18 at 16:30 Ferrous Sulfate (Feosol) 325 mg TIDWMEALS PO Last administered on 12/31/18at 08:30; Start 12/27/18 at 17:00 Acetaminophen/ Hydrocodone Bitart (Lortab 10/325) 1 tab PRN Q6HRS PRN PO M ODERATE PAIN Last administered on 12/31/18at 02:02; Start 12/27/18 at 16:30 Levothyroxine Sodium (Synthroid) 150 mcg DAILYAC PO Last administered on 12/31/18 08:29; Start 12/28/18 at 07:30 Losartan Potassium (Cozaar) 25 mg DAILY PO ; Start 12/28/18 at 09:00 Non-Formulary Medication (Albuterol Sulfate (Ventolin Hfa Inhaler)) 2 puff QID INH ; Start 12/27/18 at 17:00; Status UNV Non-Formulary Medication (Fluticasone/ Vilanterol (Breo Ellipta 100-25 Mcg Inh)) 1 puff DAILY PRN IH daily; Start 12/27/18 at 16:30; Status UNV Insulin Human Lispro (HumaLOG) 10 units TIDWMEALS SQ Last administered on 12/30/18 20:05; Start 12/27/18 at 17:30; Stop 12/31/18 at 07:32; Status DC Pantoprazole Sodium (Protonix) 40 mg DAILYAC PO Last administered on 12/31/18at 08:29; Start 12/28/18 at 07:30 Albuterol Sulfate (Ventolin Neb Soln) 2.5 mg RTQID NEB Last administered on 12/31/18at 07:15; Start 12/27/18 at 20:00 Budesonide (Pulmicort) 0.5 mg RTBID NEB Last administered on 12/31/18at 07:18; Start 12/27/18 at 20:00 Morphine Sulfate (Morphine Sulfate) 2 mg PRN Q2HR PRN IV PAIN; Start 12/27/18 at 16:45 Cefepime HCl (Maxipime) 1 gm Q24H IVP Last administered on 12/29/18at 17:39; Start 12/27/18 at 18:00 Vancomycin HCl (Vanco Per Pharmacy) 1 each PRN DAILY PRN MC SEE COMMENTS Last administered on 12/30/18at 11:42; Start 12/27/18 at 17:15 Vancomycin HCl 1.5 gm/Sodium Chloride 500 ml @ 250 mls/hr 1X ONCE IV Last administered on 12/27/18at 18:02; Start 12/27/18 at 17:30; Stop 12/27/18 at 19:29; Status DC Vancomycin HCl (Vancomycin Random Level) 1 each 1X ONCE MC Last administered on 12/28/18at 06:00; Start 12/28/18 at 06:00; Stop 12/28/18 at 06:01; Status DC Sodium Polystyrene Sulfonate (Kayexalate) 15 gm 1X ONCE PO Last administered on 12/28/18at 05:57; Start 12/28/18 at 05:45; Stop 12/28/18 at 05:46; Status DC Sodium Chloride 1,000 ml @ 1,000 mls/hr Q1H PRN IV hypotension; Start 12/28/18 at 08:10; Stop 12/28/18 at 14:09; Status DC Albumin Human 200 ml @ 200 mls/hr 1X PRN PRN IV Hypotension; Start 12/28/18 at 08:15; Stop 12/28/18 at 14:14; Status DC Acetaminophen (Tylenol) 500 mg 1X PRN PRN PO MILD PAIN / TEMP; Start 12/28/18 at 08:15; Stop 12/29/18 at 08:14; Status DC Diphenhydramine HCl (Benadryl) 25 mg 1X PRN PRN IV ITCHING; Start 12/28/18 at 08:15; Stop 12/29/18 at 08:14; Status DC Diphenhydramine HCl (Benadryl) 25 mg 1X PRN PRN IV ITCHING; Start 12/28/18 at 08:15; Stop 12/29/18 at 08:14; Status DC Sodium Chloride 1,000 ml @ 400 mls/hr Q2H30M PRN IV PATENCY; Start 12/28/18 at 08:10; Stop 12/28/18 at 20:09; Status DC Info (PHARMACY MONITORING -- do not chart) 1 each PRN DAILY PRN MC SEE COMMENTS; Start 12/28/18 at 08:15; Stop 12/30/18 at 13:48; Status DC Vancomycin HCl 500 mg/Sodium Chloride 100 ml @ 100 mls/hr QMWF IV Last administered on 12/30/18at 19:50; Start 12/30/18 at 16:00 Lactobacillus Rhamnosus (Culturelle) 1 cap BID PO Last administered on 12/31/18at 08:29; Start 12/28/18 at 21:00 Iodixanol (Visipaque 320) 100 ml STK-MED ONCE .ROUTE ; Start 12/29/18 at 09:27; Stop 12/29/18 at 09:27; Status DC Lidocaine HCl (Buffered Lidocaine 1%) 3 ml STK-MED ONCE .ROUTE ; Start 12/29/18 at 09:27; Stop 12/29/18 at 09:27; Status DC Heparin Sodium/ Sodium Chloride 500 ml @ As Directed STK-MED ONCE .ROUTE ; Start 12/29/18 at 09:27; Stop 12/29/18 at 09:27; Status DC Midazolam HCl (Versed) 2 mg STK-MED ONCE .ROUTE ; Start 12/29/18 at 09:29; Stop 12/29/18 at 09:29; Status DC Fentanyl Citrate (Fentanyl 2ml Vial) 100 mcg STK-MED ONCE .ROUTE ; Start 12/29/18 at 09:29; Stop 12/29/18 at 09:29; Status DC Heparin Sodium (Porcine) (Heparin Sodium) 10,000 unit STK-MED ONCE .ROUTE ; Start 12/29/18 at 09:29; Stop 12/29/18 at 09:30; Status DC Heparin Sodium/ Sodium Chloride (HEPARIN for ARTERIAL LINE FLUSH) 1,000 unit 1X ONCE IART Last administered on 12/29/18at 10:00; Start 12/29/18 at 10:00; Stop 12/29/18 at 10:01; Status DC Lidocaine HCl (Buffered Lidocaine 1%) 3 ml 1X ONCE IJ Last administered on 12/29/18at 10:00; Start 12/29/18 at 10:00; Stop 12/29/18 at 10:01; Status DC Midazolam HCl (Versed) 2 mg 1X ONCE IV Last administered on 12/29/18at 10:00; Start 12/29/18 at 10:00; Stop 12/29/18 at 10:01; Status DC Fentanyl Citrate (Fentanyl 2ml Vial) 100 mcg 1X ONCE IV Last administered on 12/29/18at 10:00; Start 12/29/18 at 10:00; Stop 12/29/18 at 10:01; Status DC Iodixanol (Visipaque 320) 100 ml 1X ONCE IART Last administered on 12/29/18at 10:00; Start 12/29/18 at 10:00; Stop 12/29/18 at 10:01; Status DC Heparin Sodium (Porcine) (Heparin Sodium) 3,000 unit 1X ONCE IV Last administered on 12/29/18at 10:30; Start 12/29/18 at 10:30; Stop 12/29/18 at 10:32; Status DC Iodixanol (Visipaque 320) 50 ml STK-MED ONCE .ROUTE ; Start 12/29/18 at 10:43; Stop 12/29/18 at 10:43; Status DC Iodixanol (Visipaque 320) 50 ml 1X ONCE IART Last administered on 12/29/18at 10:45; Start 12/29/18 at 10:45; Stop 12/29/18 at 10:46; Status DC Info (CONTRAST GIVEN -- Rx MONITORING) 1 each PRN DAILY PRN MC SEE COMMENTS; Start 12/29/18 at 11:00; Stop 12/31/18 at 10:59 Carvedilol (Coreg) 3.125 mg BIDWMEALS PO Last administered on 12/31/18at 08:30; Start 12/30/18 at 09:00 Insulin Glargine (Lantus Syringe) 20 unit QHS SQ Last administered on 12/30/18at 21:00; Start 12/30/18 at 21:00; Stop 12/31/18 at 07:32; Status DC Insulin Glargine (Lantus Syringe) 10 unit ONCE ONCE SQ Last administered on 12/30/18at 09:48; Start 12/30/18 at 10:00; Stop 12/30/18 at 10:01; Status DC Sodium Chloride 1,000 ml @ 1,000 mls/hr Q1H PRN IV hypotension; Start 12/30/18 at 12:21; Stop 12/30/18 at 18:20; Status DC Diphenhydramine HCl (Benadryl) 25 mg 1X PRN PRN IV ITCHING; Start 12/30/18 at 12:30; Stop 12/31/18 at 12:29 Diphenhydramine HCl (Benadryl) 25 mg 1X PRN PRN IV ITCHING; Start 12/30/18 at 12:30; Stop 12/31/18 at 12:29 Sodium Chloride 1,000 ml @ 400 mls/hr Q2H30M PRN IV PATENCY; Start 12/30/18 at 12:21; Stop 12/31/18 at 00:20; Status DC Info (PHARMACY MONITORING -- do not chart) 1 each PRN DAILY PRN MC SEE COMMENTS; Start 12/30/18 at 12:30 Insulin Human Lispro (HumaLOG) 15 units 1X ONCE SQ Last administered on 12/30/18at 22:59; Start 12/30/18 at 23:00; Stop 12/30/18 at 23:01; Status DC Insulin Glargine (Lantus Syringe) 30 unit QHS SQ ; Start 12/31/18 at 21:00 Insulin Human Lispro (HumaLOG) 15 units TIDWMEALS SQ Last administered on 12/31/18at 08:34; Start 12/31/18 at 08:00 Active Scripts Active Reported Augmentin 875-125 Tablet (Amoxicillin/Potassium Clav) 1 Each Tablet 1 Tab PO BID Protonix (Pantoprazole Sodium) 20 Mg Tablet.dr 40 Mg PO DAILY Lipitor (Atorvastatin Calcium) 20 Mg Tablet 20 Mg PO HS Aspirin 81 Mg Tab.chew 1 Tab PO DAILY Losartan Potassium 50 Mg Tablet 25 Mg PO DAILY Tums (Calcium Carbonate) 200 Mg Tab.chew 2 Tab PO TIDAC Breo Ellipta 100-25 Mcg Inh (Fluticasone/Vilanterol) 1 Each Aer.pow.ba 1 Puff IH DAILY PRN Ventolin Hfa Inhaler (Albuterol Sulfate) 18 Gm Hfa.aer.ad 2 Puff INH QID Ferrous Sulfate 325 Mg Tablet 325 Mg PO TID Docusate Sodium 100 Mg Capsule 100 Mg PO BID Humulin R U-500 Kwikpen (Insulin Regular, Human) 500 Unit/1 Ml Insuln.pen 10 Unit SQ TIDAC U-500 Voltaren (Diclofenac Sodium) 100 Gm Gel..gram. 100 Gm TP PRN QID PRN [place] 10-325 Tablet (Acetaminophen/Hydrocodone Bitart) 1 Each Tablet 1 Tab PO PRN Q6HRS PRN Levothyroxine Sodium 150 Mcg Tablet 150 Mcg PO DAILYAC Carvedilol (Carvedilol) 6.25 Mg Tablet 6.25 Mg PO BIDWMEALS Vitals/I & O Vital Sign - Last 24 Hours 12/30/18 12/30/18 12/30/18 12/30/18 09:45 10:45 11:00 11:30 Temp 97.3 97.3 Pulse 85 Resp 18 15 20 B/P (MAP) 114/58 (76) Pulse Ox 98 99 98 O2 Delivery Nasal Cannula Nasal Cannula Nasal Cannula Nasal Cannula O2 Flow Rate 2.0 2.0 2.0 2.0 12/30/18 12/30/18 12/30/18 12/30/18 18:42 19:00 19:42 20:00 Temp 97.5 97.5 Pulse 93 Resp 19 20 B/P (MAP) 124/55 (78) Pulse Ox 98 93 98 O2 Delivery Nasal Cannula Room Air Nasal Cannula Nasal Cannula O2 Flow Rate 2.0 2.0 2.0 12/30/18 12/30/18 12/31/18 12/31/18 20:05 23:00 02:02 03:02 Temp 98.1 98.1 Pulse 85 Resp 20 B/P (MAP) 128/52 (77) Pulse Ox 98 97 97 93 O2 Delivery Nasal Cannula Room Air Nasal Cannula Nasal Cannula O2 Flow Rate 2.0 2.0 2.0 12/31/18 12/31/18 12/31/18 12/31/18 03:13 05:07 06:07 07:00 Temp 97.8 97.9 97.8 97.9 Pulse 91 88 Resp 20 20 B/P (MAP) 109/49 (69) 104/43 (63) Pulse Ox 93 93 93 96 O2 Delivery Nasal Cannula Nasal Cannula Nasal Cannula Nasal Cannula O2 Flow Rate 2.0 2.0 2.0 12/31/18 12/31/18 12/31/18 12/31/18 07:18 08:00 08:30 08:34 Pulse 88 88 88 B/P (MAP) 104/43 104/43 104/43 Pulse Ox 98 O2 Delivery Nasal Cannula O2 Flow Rate 2.0 Intake and Output 12/30/18 12/30/18 12/31/18 15:00 23:00 07:00 Output Total 0 ml 0 ml 0 ml Balance 0 ml 0 ml 0 ml KIMBERLY LOPEZ MD Dec 31, 2018 09:10
[2018-12-31 11:00] VITALS: BP 109/47
[2018-12-31 15:00] VITALS: BP 117/42
--- NOTE | 2018-12-31 15:30 | PDOC ---
Infectious Disease Note Subjective Subjective Comfortable, denies pain/numbness/tingling No F/C/N/V ROS ROS per HPI Vital Sign Vital Signs Vital Signs Date Time Temp Pulse Resp B/P (MAP) Pulse Ox O2 Delivery O2 Flow Rate FiO2 12/31/18 15:00 97.8 83 20 117/42 (67) 98 Nasal Cannula 2.0 97.8 Physical Exam PHYSICAL EXAM GENERAL: Sitting in the chair, alert, relaxed appearance HEENT: Oral mucosa moist. No thrush NECK: Supple LUNGS: Clear bilaterally. HEART: S1, S2. ABDOMEN: Soft, obese. Bowel sounds present, nontender. EXTREMITIES: Edema present, chronic. DERMATOLOGIC: Left hand with dressing in place,dry intact, Left third finger has dry eschar. No surrounding redness, no purulence. NEUROLOGIC: Alert, awake, moves all 4 extremities. Labs Lab Laboratory Tests Test 12/30/18 18:44 12/30/18 21:08 12/31/18 03:10 12/31/18 08:01 Glucose (Fingerstick) 205 mg/dL (70-99) 307 mg/dL (70-99) 226 mg/dL (70-99) White Blood Count 14.8 x10^3/uL (4.0-11.0) Red Blood Count 3.33 x10^6/uL (4.30-5.70) Hemoglobin 10.4 g/dL (13.0-17.5) Hematocrit 34.4 % (39.0-53.0) Mean Corpuscular Volume 103 fL (79-100) Mean Corpuscular Hemoglobin 31 pg (25-35) Mean Corpuscular Hemoglobin Concent 30 g/dL (31-37) Red Cell Distribution Width 15.5 % (11.5-14.5) Platelet Count 300 x10^3/uL (140-400) Neutrophils (%) (Auto) 86 % (31-73) Lymphocytes (%) (Auto) 5 % (24-48) Monocytes (%) (Auto) 7 % (0-9) Eosinophils (%) (Auto) 1 % (0-3) Basophils (%) (Auto) 1 % (0-3) Neutrophils # (Auto) 12.8 x10^3/uL (1.8-7.7) Lymphocytes # (Auto) 0.8 x10^3/uL (1.0-4.8) Monocytes # (Auto) 1.0 x10^3/uL (0.0-1.1) Eosinophils # (Auto) 0.1 x10^3/uL (0.0-0.7) Basophils # (Auto) 0.1 x10^3/uL (0.0-0.2) Sodium Level 141 mmol/L (136-145) Potassium Level 4.1 mmol/L (3.5-5.1) Chloride Level 101 mmol/L (98-107) Carbon Dioxide Level 29 mmol/L (21-32) Anion Gap 11 (6-14) Blood Urea Nitrogen 18 mg/dL (8-26) Creatinine 4.7 mg/dL (0.7-1.3) Estimated GFR (Cockcroft-Gault) 15.0 Glucose Level 206 mg/dL (70-99) Calcium Level 8.3 mg/dL (8.5-10.1) Test 12/31/18 12:19 Glucose (Fingerstick) 188 mg/dL (70-99) Micro AEROBIC RES 1 Preliminary Enterococcus species AEROBIC RES 2 Preliminary Mixed skin emre GRAM STAIN RESULT 2 Final Few gram positive cocci GRAM STAIN RESULT 3 Final Gram variable rods Objective Assessment Left thumb infection, C/S GPC,GPR - mixed skin emre & enterococcus spp Left 3rd finger dry eschar End-stage renal disease, on hemodialysis.thru LUE fistula, w/u for steal phenomenon Diabetes mellitus, uncontrolled. History of breast abscess with MSSA, Klebsiella and E. coli 04/2018. PPM in place. Plan Plan of Care cont cefepime and vanco renal dosing for dialysis local wound care f/u c.s and labs vascular surgery following d/w daughter at bedside Patient seen and examined. Chart reviewed in detail. Case discussed with PLASTIC EYE TECHNICIAN. Agree with above plan. FELIX BAXTER APRN Dec 31, 2018 15:30 TERRY FERNANDO MD Dec 31, 2018 21:42
[2018-12-31] MEDS: CEFEPIME HCL IV Push 1 GM VIAL. IVP SCH (16:46)
[2018-12-31 19:00] VITALS: BP 115/61
[2018-12-31] MEDS: ATORVASTATIN CALCIUM 20 MG TABLET PO SCH (21:08)
[2018-12-31] MEDS: INSULIN GLARGINE SYRINGE. SQ SCH (21:24)
[2018-12-31 23:00] VITALS: BP 136/53
[2019-01-01] MEDS: oxyCODONE IR 5 MG TABLET PO PRN ×5 (01:43→21:03)
[2019-01-01 03:00] VITALS: BP 124/63
[2019-01-01 03:12] LABS: HEMOGLOBIN A1C 9.3 % (4.8-5.6)
[2019-01-01 04:44] LABS: BASO # 0.1 x10^3/uL (0.0-0.2); BASO % 1 % (0-3); EOS # 0.2 x10^3/uL (0.0-0.7); EOS % 1 % (0-3); HEMATOCRIT 34.8 % (39.0-53.0); HEMOGLOBIN 10.5 g/dL (13.0-17.5); LYMPH # 1.2 x10^3/uL (1.0-4.8); LYMPH % 8 % (24-48); MEAN CORPUSCULAR HEMOGLOBIN 31 pg (25-35); MEAN CORPUSCULAR HGB CONC 30 g/dL (31-37); MEAN CORPUSCULAR VOLUME 103 fL (79-100); MONO # 0.9 x10^3/uL (0.0-1.1); MONO % 6 % (0-9); NEUT % 84 % (31-73); PLATELET COUNT 301 x10^3/uL (140-400); RED BLOOD COUNT 3.37 x10^6/uL (4.30-5.70); RED CELL DISTRIBUTION WIDTH 15.4 % (11.5-14.5); WHITE BLOOD COUNT 14.4 x10^3/uL (4.0-11.0)
[2019-01-01 05:47] LABS: CALCIUM 8.6 mg/dL (8.5-10.1); CREATININE 6.5 mg/dL (0.7-1.3); GFR 10.3; POTASSIUM 4.1 mmol/L (3.5-5.1)
[2019-01-01] MEDS: ALBUTEROL SULFATE 2.5 MG/3 ML NEBU. NEB SCH ×4 (07:23→20:42)
[2019-01-01] MEDS: BUDESONIDE 0.5 MG/2 ML NEBU. NEB SCH ×2 (07:23→20:42)
[2019-01-01] MEDS: LEVOTHYROXINE 150 MCG TABLET PO SCH (07:32)
[2019-01-01] MEDS: PANTOPRAZOLE 40 MG TABLET.DR. PO SCH (07:32)
[2019-01-01 07:59] VITALS: BP 127/52
[2019-01-01] MEDS: DOCUSATE SODIUM 100 MG CAPSULE. PO SCH ×2 (07:59→21:03)
[2019-01-01] MEDS: FERROUS SULFATE 325 MG TABLET. PO SCH ×3 (07:59→16:48)
[2019-01-01] MEDS: CARVEDILOL 3.125 MG TABLET. PO SCH ×2 (08:00→16:49)
[2019-01-01] MEDS: ASPIRIN CHEWABLE 81 MG TABLET. PO SCH (08:00)
[2019-01-01] MEDS: LACTOBACILLUS RHAMNOSUS GG 1 CAPSULE. PO SCH ×2 (08:00→21:03)
[2019-01-01] MEDS: INSULIN LISPRO 300 UNITS/3 ML VIAL. SQ SCH ×3 (08:22→16:52)
--- NOTE | 2019-01-01 08:23 | NUR ---
Patient blood sugar 158, D/W Dr. Narayan as patient not eating well, to give 10 units meal dose, patient verb. understanding POC.
--- NOTE | 2019-01-01 08:36 | PDOC ---
PROGRESS NOTES Chief Complaint Chief Complaint 1. Cellulitis left thumb, unroofed at Wound clinic, r.o osteomyelitis 2. 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 Left arm AV fistula 4. LEft third middle finger resolving cellulitis (reported self manipulation ) with eschar formation 5. ESRD MWF HD 6. AOCD 7. MAXIMILIAN< Obesity, hypothyroidism, HTN, CAD hx, lipids- chronic stable 8. DM 2 uncontrolled - on OHA plus insulin -c heck hgba1c 9. Indwelling ICD 10. HYPOTENSION - on BB plus .. History of Present Illness History of Present Illness NOW BS are getting low - i had to inc insulin twice at least past few days [facility] sx plans of doing some procedure next week, as surgeon who does it is un avail this week Steal phenomenon showing on IR Imaging GEtting HD per renal BP low side, actually claims she is ambulating - slated for [facility] on dc PLAN: coreg already decreased - low BP keep LAntus to 30 units qhs dec novolog from 15 to 8 units dw RN Fiona Cnt IV abx per ID - will be here over weekend HD per renal; COnt PT,.OT HD and wound care this weekend Dw Dtr HOme with [facility] is the plan on dc so far,, Vitals Vitals Vital Signs Date Time Temp Pulse Resp B/P (MAP) Pulse Ox O2 Delivery O2 Flow Rate FiO2 01/01/19 08:00 82 127/52 01/01/19 07:59 97.9 20 99 Nasal Cannula 2.0 97.9 Physical Exam Physical Exam GENERAL: Sitting in the chair, alert, relaxed appearance HEENT: Oral mucosa moist. No thrush NECK: Supple LUNGS: Clear bilaterally. HEART: S1, S2. ABDOMEN: Soft, obese. Bowel sounds present, nontender. EXTREMITIES: Edema present, chronic. DERMATOLOGIC: Left hand with dressing in place,dry intact, Left third finger has dry eschar. No surrounding redness, no purulence. NEUROLOGIC: Alert, awake, moves all 4 extremities. General: Alert, Oriented X3, Other Heart: Regular rate, Normal S1, Normal S2, No murmurs Lungs: Clear Abdomen: Normal bowel sounds, Soft, No tenderness Extremities: Other Skin: Other Labs LABS Laboratory Tests Test 12/31/18 12:19 12/31/18 16:35 12/31/18 21:16 01/01/19 03:55 Glucose (Fingerstick) 188 mg/dL (70-99) 175 mg/dL (70-99) 162 mg/dL (70-99) White Blood Count 14.4 x10^3/uL (4.0-11.0) Red Blood Count 3.37 x10^6/uL (4.30-5.70) Hemoglobin 10.5 g/dL (13.0-17.5) Hematocrit 34.8 % (39.0-53.0) Mean Corpuscular Volume 103 fL (79-100) Mean Corpuscular Hemoglobin 31 pg (25-35) Mean Corpuscular Hemoglobin Concent 30 g/dL (31-37) Red Cell Distribution Width 15.4 % (11.5-14.5) Platelet Count 301 x10^3/uL (140-400) Neutrophils (%) (Auto) 84 % (31-73) Lymphocytes (%) (Auto) 8 % (24-48) Monocytes (%) (Auto) 6 % (0-9) Eosinophils (%) (Auto) 1 % (0-3) Basophils (%) (Auto) 1 % (0-3) Neutrophils # (Auto) 12.0 x10^3/uL (1.8-7.7) Lymphocytes # (Auto) 1.2 x10^3/uL (1.0-4.8) Monocytes # (Auto) 0.9 x10^3/uL (0.0-1.1) Eosinophils # (Auto) 0.2 x10^3/uL (0.0-0.7) Basophils # (Auto) 0.1 x10^3/uL (0.0-0.2) Sodium Level 139 mmol/L (136-145) Potassium Level 4.1 mmol/L (3.5-5.1) Chloride Level 98 mmol/L (98-107) Carbon Dioxide Level 30 mmol/L (21-32) Anion Gap 11 (6-14) Blood Urea Nitrogen 30 mg/dL (8-26) Creatinine 6.5 mg/dL (0.7-1.3) Estimated GFR (Cockcroft-Gault) 10.3 Glucose Level 193 mg/dL (70-99) Calcium Level 8.6 mg/dL (8.5-10.1) Test 01/01/19 07:38 Glucose (Fingerstick) 158 mg/dL (70-99) Review of Systems Review of Systems weak, left hand pain, all else 14 pt neg Comment Review of Relevant I have reviewed the following items filippo (where applicable) has been applied. Labs Laboratory Tests Test 12/30/18 12:09 12/30/18 18:44 12/30/18 21:08 12/31/18 03:10 Glucose (Fingerstick) 295 mg/dL (70-99) 205 mg/dL (70-99) 307 mg/dL (70-99) White Blood Count 14.8 x10^3/uL (4.0-11.0) Red Blood Count 3.33 x10^6/uL (4.30-5.70) Hemoglobin 10.4 g/dL (13.0-17.5) Hematocrit 34.4 % (39.0-53.0) Mean Corpuscular Volume 103 fL (79-100) Mean Corpuscular Hemoglobin 31 pg (25-35) Mean Corpuscular Hemoglobin Concent 30 g/dL (31-37) Red Cell Distribution Width 15.5 % (11.5-14.5) Platelet Count 300 x10^3/uL (140-400) Neutrophils (%) (Auto) 86 % (31-73) Lymphocytes (%) (Auto) 5 % (24-48) Monocytes (%) (Auto) 7 % (0-9) Eosinophils (%) (Auto) 1 % (0-3) Basophils (%) (Auto) 1 % (0-3) Neutrophils # (Auto) 12.8 x10^3/uL (1.8-7.7) Lymphocytes # (Auto) 0.8 x10^3/uL (1.0-4.8) Monocytes # (Auto) 1.0 x10^3/uL (0.0-1.1) Eosinophils # (Auto) 0.1 x10^3/uL (0.0-0.7) Basophils # (Auto) 0.1 x10^3/uL (0.0-0.2) Sodium Level 141 mmol/L (136-145) Potassium Level 4.1 mmol/L (3.5-5.1) Chloride Level 101 mmol/L (98-107) Carbon Dioxide Level 29 mmol/L (21-32) Anion Gap 11 (6-14) Blood Urea Nitrogen 18 mg/dL (8-26) Creatinine 4.7 mg/dL (0.7-1.3) Estimated GFR (Cockcroft-Gault) 15.0 Glucose Level 206 mg/dL (70-99) Hemoglobin A1c 9.3 % (4.8-5.6) Calcium Level 8.3 mg/dL (8.5-10.1) Test 12/31/18 08:01 12/31/18 12:19 12/31/18 16:35 12/31/18 21:16 Glucose (Fingerstick) 226 mg/dL (70-99) 188 mg/dL (70-99) 175 mg/dL (70-99) 162 mg/dL (70-99) Test 01/01/19 03:55 01/01/19 07:38 White Blood Count 14.4 x10^3/uL (4.0-11.0) Red Blood Count 3.37 x10^6/uL (4.30-5.70) Hemoglobin 10.5 g/dL (13.0-17.5) Hematocrit 34.8 % (39.0-53.0) Mean Corpuscular Volume 103 fL (79-100) Mean Corpuscular Hemoglobin 31 pg (25-35) Mean Corpuscular Hemoglobin Concent 30 g/dL (31-37) Red Cell Distribution Width 15.4 % (11.5-14.5) Platelet Count 301 x10^3/uL (140-400) Neutrophils (%) (Auto) 84 % (31-73) Lymphocytes (%) (Auto) 8 % (24-48) Monocytes (%) (Auto) 6 % (0-9) Eosinophils (%) (Auto) 1 % (0-3) Basophils (%) (Auto) 1 % (0-3) Neutrophils # (Auto) 12.0 x10^3/uL (1.8-7.7) Lymphocytes # (Auto) 1.2 x10^3/uL (1.0-4.8) Monocytes # (Auto) 0.9 x10^3/uL (0.0-1.1) Eosinophils # (Auto) 0.2 x10^3/uL (0.0-0.7) Basophils # (Auto) 0.1 x10^3/uL (0.0-0.2) Sodium Level 139 mmol/L (136-145) Potassium Level 4.1 mmol/L (3.5-5.1) Chloride Level 98 mmol/L (98-107) Carbon Dioxide Level 30 mmol/L (21-32) Anion Gap 11 (6-14) Blood Urea Nitrogen 30 mg/dL (8-26) Creatinine 6.5 mg/dL (0.7-1.3) Estimated GFR (Cockcroft-Gault) 10.3 Glucose Level 193 mg/dL (70-99) Calcium Level 8.6 mg/dL (8.5-10.1) Glucose (Fingerstick) 158 mg/dL (70-99) Laboratory Tests Test 12/31/18 12:19 12/31/18 16:35 12/31/18 21:16 01/01/19 03:55 Glucose (Fingerstick) 188 mg/dL (70-99) 175 mg/dL (70-99) 162 mg/dL (70-99) White Blood Count 14.4 x10^3/uL (4.0-11.0) Red Blood Count 3.37 x10^6/uL (4.30-5.70) Hemoglobin 10.5 g/dL (13.0-17.5) Hematocrit 34.8 % (39.0-53.0) Mean Corpuscular Volume 103 fL (79-100) Mean Corpuscular Hemoglobin 31 pg (25-35) Mean Corpuscular Hemoglobin Concent 30 g/dL (31-37) Red Cell Distribution Width 15.4 % (11.5-14.5) Platelet Count 301 x10^3/uL (140-400) Neutrophils (%) (Auto) 84 % (31-73) Lymphocytes (%) (Auto) 8 % (24-48) Monocytes (%) (Auto) 6 % (0-9) Eosinophils (%) (Auto) 1 % (0-3) Basophils (%) (Auto) 1 % (0-3) Neutrophils # (Auto) 12.0 x10^3/uL (1.8-7.7) Lymphocytes # (Auto) 1.2 x10^3/uL (1.0-4.8) Monocytes # (Auto) 0.9 x10^3/uL (0.0-1.1) Eosinophils # (Auto) 0.2 x10^3/uL (0.0-0.7) Basophils # (Auto) 0.1 x10^3/uL (0.0-0.2) Sodium Level 139 mmol/L (136-145) Potassium Level 4.1 mmol/L (3.5-5.1) Chloride Level 98 mmol/L (98-107) Carbon Dioxide Level 30 mmol/L (21-32) Anion Gap 11 (6-14) Blood Urea Nitrogen 30 mg/dL (8-26) Creatinine 6.5 mg/dL (0.7-1.3) Estimated GFR (Cockcroft-Gault) 10.3 Glucose Level 193 mg/dL (70-99) Calcium Level 8.6 mg/dL (8.5-10.1) Test 01/01/19 07:38 Glucose (Fingerstick) 158 mg/dL (70-99) Microbiology 12/27/18 Aerobic Culture - Preliminary, Resulted 12/27/18 Aerobic Culture Result 1 (MANPREET) - Preliminary, Resulted 12/27/18 Aerobic Culture Result 2 (MANPREET) - Preliminary, Resulted 12/27/18 Gram Stain - Final, Resulted 12/27/18 Gram Stain Result 1 (MANPREET) - Final, Resulted 12/27/18 Gram Stain Result 2 (MANPREET) - Final, Resulted 12/27/18 Gram Stain Result 3 (MANPREET) - Final, Resulted Medications Current Medications Ondansetron HCl (Zofran) 4 mg PRN Q6HRS PRN IV NAUSEA/VOMITING; Start 12/27/18 at 16:30 Calcium Carbonate/ Glycine (Tums) 500 mg PRN Q3HRS PRN PO UPSET STOMACH; Start 12/27/18 at 16:30 Zolpidem Tartrate (Ambien) 5 mg PRN QHS PRN PO INSOMNIA, MAY REPEAT IN 1HR; Start 12/27/18 at 16:30 Oxycodone HCl (Roxicodone) 5 mg PRN Q3HRS PRN PO BREAKTHROUGH PAIN Last admi nistered on 01/01/19at 06:31; Start 12/27/18 at 16:30 Morphine Sulfate (Morphine Sulfate) 1 mg PRN Q1HR PRN IV PAIN; Start 12/27/18 at 16:30; Stop 12/27/18 at 16:39; Status DC Acetaminophen (Tylenol) 650 mg PRN Q6HRS PRN PO Headaches, Temp > 101.5F; Start 12/27/18 at 16:30 Docusate Sodium (Colace) 100 mg BID PO Last administered on 01/01/19at 07:59; Start 12/27/18 at 21:00 Magnesium Hydroxide (Milk Of Magnesia) 2,400 mg PRN Q12HR PRN PO CONSTIPATION; Start 12/27/18 at 16:30 Bisacodyl (Dulcolax Supp) 10 mg PRN DAILY PRN [place] CONSTIPATION; Start 12/27/18 at 16:30 Ondansetron HCl (Zofran) 4 mg PRN Q6HRS PRN IVP NAUSEA/VOMITING; Start 12/27/18 at 16:30; Stop 12/28/18 at 11:31; Status DC Clonidine HCl (Catapres) 0.1 mg PRN Q1HR PRN PO HYPERTENSION; Start 12/27/18 at 16:30 Aspirin (Children'S Aspirin) 81 mg DAILY PO Last administered on 01/01/19at 08:00; Start 12/28/18 at 09:00 Atorvastatin Calcium (Lipitor) 20 mg HS PO Last administered on 12/31/18at 21:08; Start 12/27/18 at 21:00 Carvedilol (Coreg) 6.25 mg BIDWMEALS PO Last administered on 12/29/18at 17:39; Start 12/27/18 at 17:00; Stop 12/30/18 at 09:02; Status DC Diclofenac Sodium (Voltaren) 100 charan PRN QID PRN TP PAIN; Start 12/27/18 at 16:30 Ferrous Sulfate (Feosol) 325 mg TIDWMEALS PO Last administered on 01/01/19at 07:59; Start 12/27/18 at 17:00 Acetaminophen/ Hydrocodone Bitart (Lortab 10/325) 1 tab PRN Q6HRS PRN PO MODERATE PAIN Last administered on 12/31/18at 02:02; Start 12/27/18 at 16:30 Levothyroxine Sodium (Synthroid) 150 mcg DAILYAC PO Last administered on 01/01/19at 07:32; Start 12/28/18 at 07:30 Losartan Potassium (Cozaar) 25 mg DAILY PO ; Start 12/28/18 at 09:00; Stop 12/31/18 at 09:09; Status DC Non-Formulary Medication (Albuterol Sulfate (Ventolin Hfa Inhaler)) 2 puff QID INH ; Start 12/27/18 at 17:00; Status UNV Non-Formulary Medication (Fluticasone/ Vilanterol (Breo Ellipta 100-25 Mcg Inh)) 1 puff DAILY PRN IH daily; Start 12/27/18 at 16:30; Status UNV Insulin Human Lispro (HumaLOG) 10 units TIDWMEALS SQ Last administered on 12/30/18at 20:05; Start 12/27/18 at 17:30; Stop 12/31/18 at 07:32; Status DC Pantoprazole Sodium (Protonix) 40 mg DAILYAC PO Last administered on 01/01/19at 07:32; Start 12/28/18 at 07:30 Albuterol Sulfate (Ventolin Neb Soln) 2.5 mg RTQID NEB Last administered on 01/01/19at 07:23; Start 12/27/18 at 20:00 Budesonide (Pulmicort) 0.5 mg RTBID NEB Last administered on 01/01/19at 07:23; Start 12/27/18 at 20:00 Morphine Sulfate (Morphine Sulfate) 2 mg PRN Q2HR PRN IV PAIN; Start 12/27/18 at 16:45 Cefepime HCl (Maxipime) 1 gm Q24H IVP Last administered on 12/31/18at 16:46; Start 12/27/18 at 18:00 Vancomycin HCl (Vanco Per Pharmacy) 1 each PRN DAILY PRN MC SEE COMMENTS Last administered on 12/30/18at 11:42; Start 12/27/18 at 17:15 Vancomycin HCl 1.5 gm/Sodium Chloride 500 ml @ 250 mls/hr 1X ONCE IV Last administered on 12/27/18at 18:02; Start 12/27/18 at 17:30; Stop 12/27/18 at 19:29; Status DC Vancomycin HCl (Vancomycin Random Level) 1 each 1X ONCE MC Last administered on 12/28/18at 06:00; Start 12/28/18 at 06:00; Stop 12/28/18 at 06:01; Status DC Sodium Polystyrene Sulfonate (Kayexalate) 15 gm 1X ONCE PO Last administered on 12/28/18at 05:57; Start 12/28/18 at 05:45; Stop 12/28/18 at 05:46; Status DC Sodium Chloride 1,000 ml @ 1,000 mls/hr Q1H PRN IV hypotension; Start 12/28/18 at 08:10; Stop 12/28/18 at 14:09; Status DC Albumin Human 200 ml @ 200 mls/hr 1X PRN PRN IV Hypotension; Start 12/28/18 at 08:15; Stop 12/28/18 at 14:14; Status DC Acetaminophen (Tylenol) 500 mg 1X PRN PRN PO MILD PAIN / TEMP; Start 12/28/18 at 08:15; Stop 12/29/18 at 08:14; Status DC Diphenhydramine HCl (Benadryl) 25 mg 1X PRN PRN IV ITCHING; Start 12/28/18 at 08:15; Stop 12/29/18 at 08:14; Status DC Diphenhydramine HCl (Benadryl) 25 mg 1X PRN PRN IV ITCHING; Start 12/28/18 at 08:15; Stop 12/29/18 at 08:14; Status DC Sodium Chloride 1,000 ml @ 400 mls/hr Q2H30M PRN IV PATENCY; Start 12/28/18 at 08:10; Stop 12/28/18 at 20:09; Status DC Info (PHARMACY MONITORING -- do not chart) 1 each PRN DAILY PRN MC SEE COMMENTS; Start 12/28/18 at 08:15; Stop 12/30/18 at 13:48; Status DC Vancomycin HCl 500 mg/Sodium Chloride 100 ml @ 100 mls/hr QMWF IV Last administered on 12/30/18at 19:50; Start 12/30/18 at 16:00 Lactobacillus Rhamnosus (Culturelle) 1 cap BID PO Last administered on 01/01/19at 08:00; Start 12/28/18 at 21:00 Iodixanol (Visipaque 320) 100 ml STK-MED ONCE .ROUTE ; Start 12/29/18 at 09:27; Stop 12/29/18 at 09:27; Status DC Lidocaine HCl (Buffered Lidocaine 1%) 3 ml STK-MED ONCE .ROUTE ; Start 12/29/18 at 09:27; Stop 12/29/18 at 09:27; Status DC Heparin Sodium/ Sodium Chloride 500 ml @ As Directed STK-MED ONCE .ROUTE ; Start 12/29/18 at 09:27; Stop 12/29/18 at 09:27; Status DC Midazolam HCl (Versed) 2 mg STK-MED ONCE .ROUTE ; Start 12/29/18 at 09:29; Stop 12/29/18 at 09:29; Status DC Fentanyl Citrate (Fentanyl 2ml Vial) 100 mcg STK-MED ONCE .ROUTE ; Start 12/29/18 at 09:29; Stop 12/29/18 at 09:29; Status DC Heparin Sodium (Porcine) (Heparin Sodium) 10,000 unit STK-MED ONCE .ROUTE ; Start 12/29/18 at 09:29; Stop 12/29/18 at 09:30; Status DC Heparin Sodium/ Sodium Chloride (HEPARIN for ARTERIAL LINE FLUSH) 1,000 unit 1X ONCE IART Last administered on 12/29/18at 10:00; Start 12/29/18 at 10:00; Stop 12/29/18 at 10:01; Status DC Lidocaine HCl (Buffered Lidocaine 1%) 3 ml 1X ONCE IJ Last administered on 12/29/18at 10:00; Start 12/29/18 at 10:00; Stop 12/29/18 at 10:01; Status DC Midazolam HCl (Versed) 2 mg 1X ONCE IV Last administered on 12/29/18at 10:00; Start 12/29/18 at 10:00; Stop 12/29/18 at 10:01; Status DC Fentanyl Citrate (Fentanyl 2ml Vial) 100 mcg 1X ONCE IV Last administered on 12/29/18at 10:00; Start 12/29/18 at 10:00; Stop 12/29/18 at 10:01; Status DC Iodixanol (Visipaque 320) 100 ml 1X ONCE IART Last administered on 12/29/18at 10:00; Start 12/29/18 at 10:00; Stop 12/29/18 at 10:01; Status DC Heparin Sodium (Porcine) (Heparin Sodium) 3,000 unit 1X ONCE IV Last administered on 12/29/18at 10:30; Start 12/29/18 at 10:30; Stop 12/29/18 at 10:32; Status DC Iodixanol (Visipaque 320) 50 ml STK-MED ONCE .ROUTE ; Start 12/29/18 at 10:43; Stop 12/29/18 at 10:43; Status DC Iodixanol (Visipaque 320) 50 ml 1X ONCE IART Last administered on 12/29/18at 10:45; Start 12/29/18 at 10:45; Stop 12/29/18 at 10:46; Status DC Info (CONTRAST GIVEN -- Rx MONITORING) 1 each PRN DAILY PRN MC SEE COMMENTS; Start 12/29/18 at 11:00; Stop 12/31/18 at 10:59; Status DC Carvedilol (Coreg) 3.125 mg BIDWMEALS PO Last administered on 01/01/19at 08:00; Start 12/30/18 at 09:00 Insulin Glargine (Lantus Syringe) 20 unit QHS SQ Last administered on 12/30/18at 21:00; Start 12/30/18 at 21:00; Stop 12/31/18 at 07:32; Status DC Insulin Glargine (Lantus Syringe) 10 unit ONCE ONCE SQ Last administered on 12/30/18at 09:48; Start 12/30/18 at 10:00; Stop 12/30/18 at 10:01; Status DC Sodium Chloride 1,000 ml @ 1,000 mls/hr Q1H PRN IV hypotension; Start 12/30/18 at 12:21; Stop 12/30/18 at 18:20; Status DC Diphenhydramine HCl (Benadryl) 25 mg 1X PRN PRN IV ITCHING; Start 12/30/18 at 12:30; Stop 12/31/18 at 12:29; Status DC Diphenhydramine HCl (Benadryl) 25 mg 1X PRN PRN IV ITCHING; Start 12/30/18 at 12:30; Stop 12/31/18 at 12:29; Status DC Sodium Chloride 1,000 ml @ 400 mls/hr Q2H30M PRN IV PATENCY; Start 12/30/18 at 12:21; Stop 12/31/18 at 00:20; Status DC Info (PHARMACY MONITORING -- do not chart) 1 each PRN DAILY PRN MC SEE COMMENTS; Start 12/30/18 at 12:30 Insulin Human Lispro (HumaLOG) 15 units 1X ONCE SQ Last administered on at 22:59; Start 12/30/18 at 23:00; Stop 12/30/18 at 23:01; Status DC Insulin Glargine (Lantus Syringe) 30 unit QHS SQ Last administered on 12/31/18at 21:24; Start 12/31/18 at 21:00 Insulin Human Lispro (HumaLOG) 15 units TIDWMEALS SQ Last administered on 01/01/19at 08:22; Start 12/31/18 at 08:00 Active Scripts Active Reported Augmentin 875-125 Tablet (Amoxicillin/Potassium Clav) 1 Each Tablet 1 Tab PO BID Protonix (Pantoprazole Sodium) 20 Mg Tablet.dr 40 Mg PO DAILY Lipitor (Atorvastatin Calcium) 20 Mg Tablet 20 Mg PO HS Aspirin 81 Mg Tab.chew 1 Tab PO DAILY Losartan Potassium 50 Mg Tablet 25 Mg PO DAILY Tums (Calcium Carbonate) 200 Mg Tab.chew 2 Tab PO TIDAC Breo Ellipta 100-25 Mcg Inh (Fluticasone/Vilanterol) 1 Each Aer.pow.ba 1 Puff IH DAILY PRN Ventolin Hfa Inhaler (Albuterol Sulfate) 18 Gm Hfa.aer.ad 2 Puff INH QID Ferrous Sulfate 325 Mg Tablet 325 Mg PO TID Docusate Sodium 100 Mg Capsule 100 Mg PO BID Humulin R U-500 Kwikpen (Insulin Regular, Human) 500 Unit/1 Ml Insuln.pen 10 Unit SQ TIDAC U-500 Voltaren (Diclofenac Sodium) 100 Gm Gel..gram. 100 Gm TP PRN QID PRN [place] 10-325 Tablet (Acetaminophen/Hydrocodone Bitart) 1 Each Tablet 1 Tab PO PRN Q6HRS PRN Levothyroxine Sodium 150 Mcg Tablet 150 Mcg PO DAILYAC Carvedilol (Carvedilol) 6.25 Mg Tablet 6.25 Mg PO BIDWMEALS Vitals/I & O Vital Sign - Last 24 Hours 12/31/18 12/31/18 12/31/18 12/31/18 10:34 11:00 11:14 12:37 Temp 98.2 98.2 Pulse 83 Resp 20 B/P (MAP) 109/47 (67) Pulse Ox 99 100 O2 Delivery Nasal Cannula Nasal Cannula Nasal Cannula Nasal Cannula O2 Flow Rate 2.0 2.0 2.0 2.0 12/31/18 12/31/18 12/31/18 12/31/18 15:00 16:36 16:44 17:01 Temp 97.8 97.8 Pulse 83 83 Resp 20 B/P (MAP) 117/42 (67) 117/42 Pulse Ox 98 100 O2 Delivery Nasal Cannula Nasal Cannula Nasal Cannula O2 Flow Rate 2.0 2.0 2.0 12/31/18 12/31/18 12/31/18 12/31/18 18:12 19:00 19:34 20:00 Temp 97.9 97.9 Pulse 87 Resp 18 B/P (MAP) 115/61 (79) Pulse Ox 96 98 O2 Delivery Nasal Cannula Nasal Cannula Nasal Cannula Nasal Cannula O2 Flow Rate 2.0 2.0 2.0 2.0 12/31/18 12/31/18 12/31/18 01/01/19 21:08 22:08 23:00 01:43 Temp 97.5 97.5 Pulse 88 Resp 18 B/P (MAP) 136/53 (80) Pulse Ox 98 99 99 99 O2 Delivery Nasal Cannula Nasal Cannula Nasal Cannula Nasal Cannula O2 Flow Rate 2.0 2.0 2.0 2.0 01/01/19 01/01/19 01/01/19 01/01/19 02:43 03:00 06:31 07:23 Temp 97.8 97.8 Pulse 78 Resp 18 B/P (MAP) 124/63 (83) Pulse Ox 99 99 99 99 O2 Delivery Nasal Cannula Nasal Cannula Nasal Cannula Nasal Cannula O2 Flow Rate 2.0 2.0 2.0 2.0 01/01/19 01/01/19 01/01/19 07:35 07:59 08:00 Temp 97.9 97.9 Pulse 82 82 Resp 20 20 B/P (MAP) 127/52 (77) 127/52 Pulse Ox 99 99 O2 Delivery Nasal Cannula Nasal Cannula O2 Flow Rate 2.0 2.0 Intake and Output 12/31/18 12/31/18 01/01/19 15:00 23:00 07:00 Intake Total 480 ml 240 ml 120 ml Output Total 0 ml Balance 480 ml 240 ml 120 ml TERMULO,KIMBERLY Y MD Jan 01, 2019 08:36
[2019-01-01 10:48] VITALS: BP 123/53
--- NOTE | 2019-01-01 11:10 | PDOC ---
Infectious Disease Note Subjective Subjective Doing well Denies pain/numbness/tingling No F/C/N/V ROS ROS per HPI Vital Sign Vital Signs Vital Signs Date Time Temp Pulse Resp B/P (MAP) Pulse Ox O2 Delivery O2 Flow Rate FiO2 01/01/19 10:48 98.2 88 20 123/53 (76) 96 Nasal Cannula 2.0 98.2 Physical Exam PHYSICAL EXAM GENERAL: Sitting on side of bed, alert, bathing HEENT: Oral mucosa moist. No thrush NECK: Supple LUNGS: Clear bilaterally. HEART: S1, S2. ABDOMEN: Soft, obese. Bowel sounds present, nontender. EXTREMITIES: Edema present, chronic. DERMATOLOGIC: Left hand with dressing in place NEUROLOGIC: Alert, answers questions appropriately Labs Lab Laboratory Tests Test 12/31/18 12:19 12/31/18 16:35 12/31/18 21:16 01/01/19 03:55 Glucose (Fingerstick) 188 mg/dL (70-99) 175 mg/dL (70-99) 162 mg/dL (70-99) White Blood Count 14.4 x10^3/uL (4.0-11.0) Red Blood Count 3.37 x10^6/uL (4.30-5.70) Hemoglobin 10.5 g/dL (13.0-17.5) Hematocrit 34.8 % (39.0-53.0) Mean Corpuscular Volume 103 fL (79-100) Mean Corpuscular Hemoglobin 31 pg (25-35) Mean Corpuscular Hemoglobin Concent 30 g/dL (31-37) Red Cell Distribution Width 15.4 % (11.5-14.5) Platelet Count 301 x10^3/uL (140-400) Neutrophils (%) (Auto) 84 % (31-73) Lymphocytes (%) (Auto) 8 % (24-48) Monocytes (%) (Auto) 6 % (0-9) Eosinophils (%) (Auto) 1 % (0-3) Basophils (%) (Auto) 1 % (0-3) Neutrophils # (Auto) 12.0 x10^3/uL (1.8-7.7) Lymphocytes # (Auto) 1.2 x10^3/uL (1.0-4.8) Monocytes # (Auto) 0.9 x10^3/uL (0.0-1.1) Eosinophils # (Auto) 0.2 x10^3/uL (0.0-0.7) Basophils # (Auto) 0.1 x10^3/uL (0.0-0.2) Sodium Level 139 mmol/L (136-145) Potassium Level 4.1 mmol/L (3.5-5.1) Chloride Level 98 mmol/L (98-107) Carbon Dioxide Level 30 mmol/L (21-32) Anion Gap 11 (6-14) Blood Urea Nitrogen 30 mg/dL (8-26) Creatinine 6.5 mg/dL (0.7-1.3) Estimated GFR (Cockcroft-Gault) 10.3 Glucose Level 193 mg/dL (70-99) Calcium Level 8.6 mg/dL (8.5-10.1) Test 01/01/19 07:38 Glucose (Fingerstick) 158 mg/dL (70-99) Micro AEROBIC RES 1 Preliminary Enterococcus species AEROBIC RES 2 Preliminary Mixed skin emre GRAM STAIN RESULT 2 Final Few gram positive cocci GRAM STAIN RESULT 3 Final Gram variable rods Objective Assessment Left thumb infection, C/S GPC,GPR - mixed skin emre & enterococcus spp Left 3rd finger dry eschar Steal phenomenon End-stage renal disease, on hemodialysis.thru LUE fistula, w/u for steal phenomenon Diabetes mellitus, uncontrolled. History of breast abscess with MSSA, Klebsiella and E. coli 04/2018. PPM in place. Plan Plan of Care cont cefepime and vanco renal dosing for dialysis local wound care f/u c.s and labs await vascular recommendations d/w family at bedside Patient seen and examined. Chart reviewed in detail. Case discussed with [employer]. Agree with above plan FELIX BAXTER APRN Jan 01, 2019 11:09 TERRY FERNANDO MD Jan 01, 2019 19:05
[2019-01-01 15:00] VITALS: BP 108/55
[2019-01-01] MEDS: CEFEPIME HCL IV Push 1 GM VIAL. IVP SCH (17:24)
[2019-01-01 19:00] VITALS: BP 121/60
[2019-01-01] MEDS ORDERED: INSULIN LISPRO 300 UNITS/3 ML VIAL. SQ ONE (21:00)
[2019-01-01] MEDS: ATORVASTATIN CALCIUM 20 MG TABLET PO SCH (21:03)
[2019-01-01] MEDS: INSULIN GLARGINE SYRINGE. SQ SCH (21:15)
[2019-01-01 23:00] VITALS: BP 126/60
[2019-01-02] VITALS (11 sets, daily range): BP systolic 106–140; BP diastolic 33–63
[2019-01-02] MEDS: oxyCODONE IR 5 MG TABLET PO PRN (01:38)
[2019-01-02] MEDS: ALBUTEROL SULFATE 2.5 MG/3 ML NEBU. NEB SCH ×4 (07:13→19:46)
[2019-01-02] MEDS: BUDESONIDE 0.5 MG/2 ML NEBU. NEB SCH ×2 (07:14→19:46)
[2019-01-02] MEDS: INSULIN LISPRO 300 UNITS/3 ML VIAL. SQ SCH ×4 (07:45→16:54)
[2019-01-02] MEDS: FERROUS SULFATE 325 MG TABLET. PO SCH ×3 (08:00→17:16)
[2019-01-02] MEDS: CARVEDILOL 3.125 MG TABLET. PO SCH ×2 (08:00→16:54)
[2019-01-02] MEDS: LEVOTHYROXINE 150 MCG TABLET PO SCH (08:04)
[2019-01-02] MEDS: HYDROcodone/APAP 10/325 1 TAB TABLET PO PRN ×2 (08:04→15:49)
[2019-01-02] MEDS: PANTOPRAZOLE 40 MG TABLET.DR. PO SCH (08:04)
[2019-01-02] MEDS: LOSARTAN POTASSIUM 25 MG TABLET. PO SCH (08:15)
[2019-01-02] MEDS ORDERED: IV NORMAL SALINE 1000ML BAG 1,000 ML IV PRN ×2 (08:18)
[2019-01-02] MEDS ORDERED: DIALYSIS PATIENT. MC PRN (08:30)
[2019-01-02] MEDS ORDERED: diphenhydrAMINE 50 MG/ML VIAL IV PRN ×2 (08:30)
[2019-01-02] MEDS ORDERED: ACETAMINOPHEN 500 MG TABLET PO PRN (08:30)
[2019-01-02] MEDS: LACTOBACILLUS RHAMNOSUS GG 1 CAPSULE. PO SCH ×2 (09:00→22:35)
[2019-01-02] MEDS: ASPIRIN CHEWABLE 81 MG TABLET. PO SCH (09:00)
[2019-01-02] MEDS: DOCUSATE SODIUM 100 MG CAPSULE. PO SCH ×2 (09:00→22:35)
--- NOTE | 2019-01-02 09:03 | PDOC ---
Provider Note Provider Note Vascular S: Patient seen on dialysis. Continues to complain of left thumb pain. Some relief with oxycodone. NPO for procedure O: Awake and alert VSS, afebrile HRR Non-labored respirations Left hand with dry dressing, did not examine while on dialysis. Able to move fingers including thumb. 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 Continue Aspirin daily. Arteriogram planned for today. Will make additional recommendations pending results. DOROTHY JOSEPH APRN Jan 02, 2019 09:03
--- NOTE | 2019-01-02 09:30 | PDOC ---
PROGRESS NOTES Chief Complaint Chief Complaint 1. Cellulitis left thumb, unroofed at Wound clinic, r.o osteomyelitis 2. 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 Left arm AV fistula 4. LEft third middle finger resolving cellulitis (reported self manipulation ) with eschar formation 5. ESRD MWF HD 6. AOCD 7. MAXIMILIAN< Obesity, hypothyroidism, HTN, CAD hx, lipids- chronic stable 8. LABILE BP 9. Indwelling ICD 10 LABILE DM History of Present Illness History of Present Illness LABILE BP and BS BEfore weekend, i had to dec and stop some bP meds, ALso had to inc Insulin coverage BUT WEDNESDAY, BS were low side NOW THEY ARE BACK UP She will also be npo for some vasc procedure/intevrention for steal phenomenon She is getting IV abx per ID, non toxic appearing [facility] REsume [facility]B 25 po qD Lisorp inc 10 SQ TID from 8 KEep long atcing current insu,dion dose at night [facility] sx to do some intervention this week for the steal phenomenon Iv abx per ID HD per renal So far HH on dc Vitals Vitals Vital Signs Date Time Temp Pulse Resp B/P (MAP) Pulse Ox O2 Delivery O2 Flow Rate FiO2 01/02/19 08:04 Nasal Cannula 2.0 01/02/19 08:00 86 111/49 01/02/19 07:15 97 01/02/19 07:00 97.5 18 97.5 Physical Exam Physical Exam GENERAL: Sitting on side of bed, alert, bathing HEENT: Oral mucosa moist. No thrush NECK: Supple LUNGS: Clear bilaterally. HEART: S1, S2. ABDOMEN: Soft, obese. Bowel sounds present, nontender. EXTREMITIES: Edema present, chronic. DERMATOLOGIC: Left hand with dressing in place NEUROLOGIC: Alert, answers questions appropriately General: Alert, Oriented X3, Other Heart: Regular rate, Normal S1, Normal S2, No murmurs Lungs: Clear Abdomen: Normal bowel sounds, Soft, No tenderness Extremities: Other Skin: Other Labs LABS Laboratory Tests Test 01/01/19 11:39 01/01/19 16:22 01/01/19 20:34 01/02/19 07:36 Glucose (Fingerstick) 228 mg/dL (70-99) 282 mg/dL (70-99) 387 mg/dL (70-99) 193 mg/dL (70-99) Review of Systems Review of Systems neg 14 pt aside from weak and some left hand pain Comment Review of Relevant I have reviewed the following items filippo (where applicable) has been applied. Labs Laboratory Tests Test 12/31/18 12:19 12/31/18 16:35 12/31/18 21:16 01/01/19 03:55 Glucose (Fingerstick) 188 mg/dL (70-99) 175 mg/dL (70-99) 162 mg/dL (70-99) White Blood Count 14.4 x10^3/uL (4.0-11.0) Red Blood Count 3.37 x10^6/uL (4.30-5.70) Hemoglobin 10.5 g/dL (13.0-17.5) Hematocrit 34.8 % (39.0-53.0) Mean Corpuscular Volume 103 fL (79-100) Mean Corpuscular Hemoglobin 31 pg (25-35) Mean Corpuscular Hemoglobin Concent 30 g/dL (31-37) Red Cell Distribution Width 15.4 % (11.5-14.5) Platelet Count 301 x10^3/uL (140-400) Neutrophils (%) (Auto) 84 % (31-73) Lymphocytes (%) (Auto) 8 % (24-48) Monocytes (%) (Auto) 6 % (0-9) Eosinophils (%) (Auto) 1 % (0-3) Basophils (%) (Auto) 1 % (0-3) Neutrophils # (Auto) 12.0 x10^3/uL (1.8-7.7) Lymphocytes # (Auto) 1.2 x10^3/uL (1.0-4.8) Monocytes # (Auto) 0.9 x10^3/uL (0.0-1.1) Eosinophils # (Auto) 0.2 x10^3/uL (0.0-0.7) Basophils # (Auto) 0.1 x10^3/uL (0.0-0.2) Sodium Level 139 mmol/L (136-145) Potassium Level 4.1 mmol/L (3.5-5.1) Chloride Level 98 mmol/L (98-107) Carbon Dioxide Level 30 mmol/L (21-32) Anion Gap 11 (6-14) Blood Urea Nitrogen 30 mg/dL (8-26) Creatinine 6.5 mg/dL (0.7-1.3) Estimated GFR (Cockcroft-Gault) 10.3 Glucose Level 193 mg/dL (70-99) Calcium Level 8.6 mg/dL (8.5-10.1) Test 01/01/19 07:38 01/01/19 11:39 01/01/19 16:22 01/01/19 20:34 Glucose (Fingerstick) 158 mg/dL (70-99) 228 mg/dL (70-99) 282 mg/dL (70-99) 387 mg/dL (70-99) Test 01/02/19 07:36 Glucose (Fingerstick) 193 mg/dL (70-99) Laboratory Tests Test 01/01/19 11:39 01/01/19 16:22 01/01/19 20:34 01/02/19 07:36 Glucose (Fingerstick) 228 mg/dL (70-99) 282 mg/dL (70-99) 387 mg/dL (70-99) 193 mg/dL (70-99) Microbiology 12/27/18 Aerobic Culture - Final, Complete 12/27/18 Aerobic Culture Result 1 (MANPREET) - Final, Complete 12/27/18 Aerobic Culture Result 2 (MANPREET) - Final, Complete 12/27/18 Antimicrobic Susceptibility - Final, Complete 12/27/18 Gram Stain - Final, Complete 12/27/18 Gram Stain Result 1 (MANPREET) - Final, Complete 12/27/18 Gram Stain Result 2 (MANPREET) - Final, Complete 12/27/18 Gram Stain Result 3 (MANPREET) - Final, Complete Medications Current Medications Ondansetron HCl (Zofran) 4 mg PRN Q6HRS PRN IV NAUSEA/VOMITING; Start 12/27/18 at 16:30 Calcium Carbonate/ Glycine (Tums) 500 mg PRN Q3HRS PRN PO UPSET STOMACH; Start 12/27/18 at 16:30 Zolpidem Tartrate (Ambien) 5 mg PRN QHS PRN PO INSOMNIA, MAY REPEAT IN 1HR; Start 12/27/18 at 16:30 Oxycodone HCl (Roxicodone) 5 mg PRN Q3HRS PRN PO BREAKTHROUGH PAIN Last administered on 01/02/19 01:38; Start 12/27/18 at 16:30 Morphine Sulfate (Morphine Sulfate) 1 mg PRN Q1HR PRN IV PAIN; Start 12/27/18 at 16:30; Stop 12/27/18 at 16:39; Status DC Acetaminophen (Tylenol) 650 mg PRN Q6HRS PRN PO Headaches, Temp > 101.5F; Start 12/27/18 at 16:30 Docusate Sodium (Colace) 100 mg BID PO Last administered on 01/01/19at 21:03; Start 12/27/18 at 21:00 Magnesium Hydroxide (Milk Of Magnesia) 2,400 mg PRN Q12HR PRN PO CONSTIPATION; Start 12/27/18 at 16:30 Bisacodyl (Dulcolax Supp) 10 mg PRN DAILY PRN VT CONSTIPATION; Start 12/27/18 at 16:30 Ondansetron HCl (Zofran) 4 mg PRN Q6HRS PRN IVP NAUSEA/VOMITING; Start at 16:30; Stop 12/28/18 at 11:31; Status DC Clonidine HCl (Catapres) 0.1 mg PRN Q1HR PRN PO HYPERTENSION; Start 12/27/18 at 16:30 Aspirin (Children'S Aspirin) 81 mg DAILY PO Last administered on 01/01/19at 08:00; Start 12/28/18 at 09:00 Atorvastatin Calcium (Lipitor) 20 mg HS PO Last administered on 01/01/19at 21:03; Start 12/27/18 at 21:00 Carvedilol (Coreg) 6.25 mg BIDWMEALS PO Last administered on 12/29/18at 17:39; Start 12/27/18 at 17:00; Stop 12/30/18 at 09:02; Status DC Diclofenac Sodium (Voltaren) 100 charan PRN QID PRN TP PAIN; Start 12/27/18 at 16:30 Ferrous Sulfate (Feosol) 325 mg TIDWMEALS PO Last administered on 01/01/19at 16:48; Start 12/27/18 at 17:00 Acetaminophen/ Hydrocodone Bitart (Lortab 10/325) 1 tab PRN Q6HRS PRN PO M ODERATE PAIN Last administered on 01/02/19 08:04; Start 12/27/18 at 16:30 Levothyroxine Sodium (Synthroid) 150 mcg DAILYAC PO Last administered on 01/02/19 08:04; Start 12/28/18 at 07:30 Losartan Potassium (Cozaar) 25 mg DAILY PO ; Start 12/28/18 at 09:00; Stop 12/31/18 at 09:09; Status DC Non-Formulary Medication (Albuterol Sulfate (Ventolin Hfa Inhaler)) 2 puff QID INH ; Start 12/27/18 at 17:00; Status UNV Non-Formulary Medication (Fluticasone/ Vilanterol (Breo Ellipta 100-25 Mcg Inh)) 1 puff DAILY PRN IH daily; Start 12/27/18 at 16:30; Status UNV Insulin Human Lispro (HumaLOG) 10 units TIDWMEALS SQ Last administered on 12/30/18 20:05; Start 12/27/18 at 17:30; Stop 12/31/18 at 07:32; Status DC Pantoprazole Sodium (Protonix) 40 mg DAILYAC PO Last administered on 01/02/19 08:04; Start 12/28/18 at 07:30 Albuterol Sulfate (Ventolin Neb Soln) 2.5 mg RTQID NEB Last administered on 01/02/19 07:13; Start 12/27/18 at 20:00 Budesonide (Pulmicort) 0.5 mg RTBID NEB Last administered on 01/02/19 07:14; Start 12/27/18 at 20:00 Morphine Sulfate (Morphine Sulfate) 2 mg PRN Q2HR PRN IV PAIN; Start 12/27/18 at 16:45 Cefepime HCl (Maxipime) 1 gm Q24H IVP Last administered on 01/01/19 17:24; Start 12/27/18 at 18:00 Vancomycin HCl (Vanco Per Pharmacy) 1 each PRN DAILY PRN MC SEE COMMENTS Last administered on 12/30/18 11:42; Start 12/27/18 at 17:15 Vancomycin HCl 1.5 gm/Sodium Chloride 500 ml @ 250 mls/hr 1X ONCE IV Last administered on 12/27/18at 18:02; Start 12/27/18 at 17:30; Stop 12/27/18 at 19:29; Status DC Vancomycin HCl (Vancomycin Random Level) 1 each 1X ONCE MC Last administered on 12/28/18at 06:00; Start 12/28/18 at 06:00; Stop 12/28/18 at 06:01; Status DC Sodium Polystyrene Sulfonate (Kayexalate) 15 gm 1X ONCE PO Last administered on 12/28/18at 05:57; Start 12/28/18 at 05:45; Stop 12/28/18 at 05:46; Status DC Sodium Chloride 1,000 ml @ 1,000 mls/hr Q1H PRN IV hypotension; Start 12/28/18 at 08:10; Stop 12/28/18 at 14:09; Status DC Albumin Human 200 ml @ 200 mls/hr 1X PRN PRN IV Hypotension; Start 12/28/18 at 08:15; Stop 12/28/18 at 14:14; Status DC Acetaminophen (Tylenol) 500 mg 1X PRN PRN PO MILD PAIN / TEMP; Start 12/28/18 at 08:15; Stop 12/29/18 at 08:14; Status DC Diphenhydramine HCl (Benadryl) 25 mg 1X PRN PRN IV ITCHING; Start 12/28/18 at 08:15; Stop 12/29/18 at 08:14; Status DC Diphenhydramine HCl (Benadryl) 25 mg 1X PRN PRN IV ITCHING; Start 12/28/18 at 08:15; Stop 12/29/18 at 08:14; Status DC Sodium Chloride 1,000 ml @ 400 mls/hr Q2H30M PRN IV PATENCY; Start 12/28/18 at 08:10; Stop 12/28/18 at 20:09; Status DC Info (PHARMACY MONITORING -- do not chart) 1 each PRN DAILY PRN MC SEE COMMENTS; Start 12/28/18 at 08:15; Stop 12/30/18 at 13:48; Status DC Vancomycin HCl 500 mg/Sodium Chloride 100 ml @ 100 mls/hr QMWF IV Last administered on 12/30/18at 19:50; Start 12/30/18 at 16:00 Lactobacillus Rhamnosus (Culturelle) 1 cap BID PO Last administered on 01/01/19at 21:03; Start 12/28/18 at 21:00 Iodixanol (Visipaque 320) 100 ml STK-MED ONCE .ROUTE ; Start 12/29/18 at 09:27; Stop 12/29/18 at 09:27; Status DC Lidocaine HCl (Buffered Lidocaine 1%) 3 ml STK-MED ONCE .ROUTE ; Start 12/29/18 at 09:27; Stop 12/29/18 at 09:27; Status DC Heparin Sodium/ Sodium Chloride 500 ml @ As Directed STK-MED ONCE .ROUTE ; Start 12/29/18 at 09:27; Stop 12/29/18 at 09:27; Status DC Midazolam HCl (Versed) 2 mg STK-MED ONCE .ROUTE ; Start 12/29/18 at 09:29; Stop 12/29/18 at 09:29; Status DC Fentanyl Citrate (Fentanyl 2ml Vial) 100 mcg STK-MED ONCE .ROUTE ; Start 12/29/18 at 09:29; Stop 12/29/18 at 09:29; Status DC Heparin Sodium (Porcine) (Heparin Sodium) 10,000 unit STK-MED ONCE .ROUTE ; Start 12/29/18 at 09:29; Stop 12/29/18 at 09:30; Status DC Heparin Sodium/ Sodium Chloride (HEPARIN for ARTERIAL LINE FLUSH) 1,000 unit 1X ONCE IART Last administered on 12/29/18at 10:00; Start 12/29/18 at 10:00; Stop 12/29/18 at 10:01; Status DC Lidocaine HCl (Buffered Lidocaine 1%) 3 ml 1X ONCE IJ Last administered on 12/29/18at 10:00; Start 12/29/18 at 10:00; Stop 12/29/18 at 10:01; Status DC Midazolam HCl (Versed) 2 mg 1X ONCE IV Last administered on 12/29/18at 10:00; Start 12/29/18 at 10:00; Stop 12/29/18 at 10:01; Status DC Fentanyl Citrate (Fentanyl 2ml Vial) 100 mcg 1X ONCE IV Last administered on 12/29/18at 10:00; Start 12/29/18 at 10:00; Stop 12/29/18 at 10:01; Status DC Iodixanol (Visipaque 320) 100 ml 1X ONCE IART Last administered on 12/29/18at 10:00; Start 12/29/18 at 10:00; Stop 12/29/18 at 10:01; Status DC Heparin Sodium (Porcine) (Heparin Sodium) 3,000 unit 1X ONCE IV Last administered on 12/29/18at 10:30; Start 12/29/18 at 10:30; Stop 12/29/18 at 10:32; Status DC Iodixanol (Visipaque 320) 50 ml STK-MED ONCE .ROUTE ; Start 12/29/18 at 10:43; Stop 12/29/18 at 10:43; Status DC Iodixanol (Visipaque 320) 50 ml 1X ONCE IART Last administered on 12/29/18at 10:45; Start 12/29/18 at 10:45; Stop 12/29/18 at 10:46; Status DC Info (CONTRAST GIVEN -- Rx MONITORING) 1 each PRN DAILY PRN MC SEE COMMENTS; Start 12/29/18 at 11:00; Stop 12/31/18 at 10:59; Status DC Carvedilol (Coreg) 3.125 mg BIDWMEALS PO Last administered on 01/01/19at 16:49; Start 12/30/18 at 09:00 Insulin Glargine (Lantus Syringe) 20 unit QHS SQ Last administered on 12/30/18at 21:00; Start 12/30/18 at 21:00; Stop 12/31/18 at 07:32; Status DC Insulin Glargine (Lantus Syringe) 10 unit ONCE ONCE SQ Last administered on 12/30/18at 09:48; Start 12/30/18 at 10:00; Stop 12/30/18 at 10:01; Status DC Sodium Chloride 1,000 ml @ 1,000 mls/hr Q1H PRN IV hypotension; Start 12/30/18 at 12:21; Stop 12/30/18 at 18:20; Status DC Diphenhydramine HCl (Benadryl) 25 mg 1X PRN PRN IV ITCHING; Start 12/30/18 at 12:30; Stop 12/31/18 at 12:29; Status DC Diphenhydramine HCl (Benadryl) 25 mg 1X PRN PRN IV ITCHING; Start 12/30/18 at 12:30; Stop 12/31/18 at 12:29; Status DC Sodium Chloride 1,000 ml @ 400 mls/hr Q2H30M PRN IV PATENCY; Start 12/30/18 at 12:21; Stop 12/31/18 at 00:20; Status DC Info (PHARMACY MONITORING -- do not chart) 1 each PRN DAILY PRN MC SEE COMMENTS; Start 12/30/18 at 12:30 Insulin Human Lispro (HumaLOG) 15 units 1X ONCE SQ Last administered on 12/30/18at 22:59; Start 12/30/18 at 23:00; Stop 12/30/18 at 23:01; Status DC Insulin Glargine (Lantus Syringe) 30 unit QHS SQ Last administered on 01/01/19at 21:15; Start 12/31/18 at 21:00 Insulin Human Lispro (HumaLOG) 15 units TIDWMEALS SQ Last administered on 12/07 09/23at 08:22; Start 12/31/18 at 08:00; Stop 01/01/19 at 08:35; Status DC Insulin Human Lispro (HumaLOG) 8 units TIDWMEALS SQ Last administered on 01/01/19at 16:52; Start 01/01/19 at 12:00; Stop 01/02/19 at 07:40; Status DC Insulin Human Lispro (HumaLOG) 12 units 1X ONCE SQ Last administered on 01/01/19at 21:14; Start 01/01/19 at 21:00; Stop 01/01/19 at 21:01; Status DC Losartan Potassium (Cozaar) 25 mg DAILY PO ; Start 01/02/19 at 09:00 Insulin Human Lispro (HumaLOG) 10 units TIDWMEALS SQ ; Start 01/02/19 at 07:45 Sodium Chloride 1,000 ml @ 1,000 mls/hr Q1H PRN IV hypotension; Start 01/02/19 at 08:18; Stop 01/02/19 at 14:17 Acetaminophen (Tylenol) 500 mg 1X PRN PRN PO MILD PAIN / TEMP; Start 01/02/19 at 08:30; Stop 01/03/19 at 08:29 Diphenhydramine HCl (Benadryl) 25 mg 1X PRN PRN IV ITCHING; Start 01/02/19 at 08:30; Stop 01/03/19 at 08:29 Diphenhydramine HCl (Benadryl) 25 mg 1X PRN PRN IV ITCHING; Start 01/02/19 at 08:30; Stop 01/03/19 at 08:29 Sodium Chloride 1,000 ml @ 400 mls/hr Q2H30M PRN IV PATENCY; Start 01/02/19 at 08:18; Stop 01/02/19 at 20:17 Info (PHARMACY MONITORING -- do not chart) 1 each PRN DAILY PRN MC SEE COMMENTS; Start 01/02/19 at 08:30; Status UNV Active Scripts Active Reported Augmentin 875-125 Tablet (Amoxicillin/Potassium Clav) 1 Each Tablet 1 Tab PO BID Protonix (Pantoprazole Sodium) 20 Mg Tablet.dr 40 Mg PO DAILY Lipitor (Atorvastatin Calcium) 20 Mg Tablet 20 Mg PO HS Aspirin 81 Mg Tab.chew 1 Tab PO DAILY Losartan Potassium 50 Mg Tablet 25 Mg PO DAILY Tums (Calcium Carbonate) 200 Mg Tab.chew 2 Tab PO TIDAC Breo Ellipta 100-25 Mcg Inh (Fluticasone/Vilanterol) 1 Each Aer.pow.ba 1 Puff IH DAILY PRN Ventolin Hfa Inhaler (Albuterol Sulfate) 18 Gm Hfa.aer.ad 2 Puff INH QID Ferrous Sulfate 325 Mg Tablet 325 Mg PO TID Docusate Sodium 100 Mg Capsule 100 Mg PO BID Humulin R U-500 Kwikpen (Insulin Regular, Human) 500 Unit/1 Ml Insuln.pen 10 Unit SQ TIDAC U-500 Voltaren (Diclofenac Sodium) 100 Gm Gel..gram. 100 Gm TP PRN QID PRN [place] 10-325 Tablet (Acetaminophen/Hydrocodone Bitart) 1 Each Tablet 1 Tab PO PRN Q6HRS PRN Levothyroxine Sodium 150 Mcg Tablet 150 Mcg PO DAILYAC Carvedilol (Carvedilol) 6.25 Mg Tablet 6.25 Mg PO BIDWMEALS Vitals/I & O Vital Sign - Last 24 Hours 01/01/19 01/01/19 01/01/19 01/01/19 10:48 11:25 11:49 12:49 Temp 98.2 98.2 Pulse 88 Resp 20 18 18 B/P (MAP) 123/53 (76) Pulse Ox 96 O2 Delivery Nasal Cannula Nasal Cannula Nasal Cannula Room Air O2 Flow Rate 2.0 2.0 2.0 01/01/19 01/01/19 01/01/19 01/01/19 15:00 15:33 16:49 16:54 Temp 98.2 98.2 Pulse 85 85 Resp 20 18 B/P (MAP) 108/55 (72) 108/55 Pulse Ox 99 O2 Delivery Nasal Cannula Nasal Cannula Nasal Cannula O2 Flow Rate 2.0 2.0 2.0 01/01/19 01/01/19 01/01/19 01/01/19 17:53 19:00 20:00 20:45 Temp 98.0 98.0 Pulse 89 Resp 18 18 B/P (MAP) 121/60 (80) Pulse Ox 98 98 O2 Delivery Nasal Cannula Nasal Cannula Nasal Cannula Nasal Cannula O2 Flow Rate 2.0 2.0 2.0 2.0 01/01/19 01/01/19 01/01/19 01/02/19 21:03 22:03 23:00 01:38 Temp 97.7 97.7 Pulse 87 Resp 18 B/P (MAP) 126/60 (82) Pulse Ox 98 98 97 97 O2 Delivery Nasal Cannula Nasal Cannula Nasal Cannula Nasal Cannula O2 Flow Rate 2.0 2.0 2.0 2.0 01/02/19 01/02/19 01/02/19 01/02/19 02:38 02:53 07:00 07:15 Temp 97.9 97.5 97.9 97.5 Pulse 83 86 Resp 18 18 B/P (MAP) 140/51 (80) 111/49 (69) Pulse Ox 100 100 100 97 O2 Delivery Nasal Cannula Nasal Cannula Nasal Cannula Nasal Cannula O2 Flow Rate 2.0 2.0 2.0 01/02/19 01/02/19 08:00 08:04 Pulse 86 B/P (MAP) 111/49 O2 Delivery Nasal Cannula O2 Flow Rate 2.0 Intake and Output 01/01/19 01/01/19 01/02/19 15:00 23:00 07:00 Intake Total 180 ml Output Total 0 ml Balance 180 ml 0 ml KIMBERLY LOPEZ MD Jan 02, 2019 09:30
[2019-01-02] MEDS: VANCOMYCIN PER PHARMACY MC PRN (10:29)
--- NOTE | 2019-01-02 11:50 | PDOC ---
Infectious Disease Note Subjective Subjective Doing well but some finger pain Denies numbness/tingling No F/C/N/V ROS ROS o/w neg Vital Sign Vital Signs Vital Signs Date Time Temp Pulse Resp B/P (MAP) Pulse Ox O2 Delivery O2 Flow Rate FiO2 01/02/19 11:00 90 17 108/60 (76) 100 Nasal Cannula 2.0 01/02/19 07:00 97.5 97.5 Physical Exam PHYSICAL EXAM GENERAL: Sitting on side of bed, alert, in HD HEENT: Oral mucosa moist. No thrush NECK: Supple LUNGS: Clear bilaterally. HEART: S1, S2. ABDOMEN: Soft, obese. Bowel sounds present, nontender. EXTREMITIES: Edema present, chronic. DERMATOLOGIC: Left hand with dressing in place NEUROLOGIC: Alert, answers questions appropriately Labs Lab Laboratory Tests Test 01/01/19 16:22 01/01/19 20:34 01/02/19 07:36 Glucose (Fingerstick) 282 mg/dL (70-99) 387 mg/dL (70-99) 193 mg/dL (70-99) Micro AEROBIC RES 1 Final Enterococcus species Enterococcus faecalis 4+ AEROBIC RES 2 Final Mixed skin emre 4+ Performed at: [facility], [place], [place] [id number] Ornament Setter: BOBBY Mahajan MD, Phone: [phone] ANTIMICROBIAL SUSCEPTIBILITY Final Comment S = Susceptible; I = Intermediate; R = Resistant P = Positive; N = Negative MICS are expressed in micrograms per mL Antibiotic RSLT#1 RSLT#2 RSLT#3 RSLT#4 Penicillin S =1 Vancomycin S =1 Microbiology 12/27/18 Aerobic Culture - Final, Complete 12/27/18 Aerobic Culture Result 1 (AMNPREET) - Final, Complete 12/27/18 Aerobic Culture Result 2 (MANPREET) - Final, Complete 12/27/18 Antimicrobic Susceptibility - Final, Complete 12/27/18 Gram Stain - Final, Complete 12/27/18 Gram Stain Result 1 (MANPREET) - Final, Complete 12/27/18 Gram Stain Result 2 (MANPREET) - Final, Complete 12/27/18 Gram Stain Result 3 (MANPREET) - Final, Complete Objective Assessment Left thumb infection, C/S GPC,GPR - mixed skin emre & enterococcus spp 12/27 Left 3rd finger dry eschar Leukocytosis - stable in part reactive with steal Steal phenomenon End-stage renal disease, on hemodialysis.thru LUE fistula, w/u for steal phenomenon Diabetes mellitus, uncontrolled. History of breast abscess with MSSA, Klebsiella and E. coli 04/2018. PPM in place. Plan Plan of Care cont cefepime and vanco renal dosing for dialysis local wound care f/u c.s and labs await vascular recommendations arteriogram ordered KINGSTON HERNANDEZ MD Jan 02, 2019 11:50
--- NOTE | 2019-01-02 12:43 | NUR ---
SW following for discharge planning. Chart reviewed, discussed with RN. Pt is having dialysis today, and an arteriogram procedure. Plan is to discharge home with [facility] when ready. SW will continue to follow.
[2019-01-02] MEDS: MORPHINE SULFATE 2 MG/ML VIAL. IV PRN (13:07)
[2019-01-02] MEDS ORDERED: LIDOCAINE WITH 8.4% SOD BICARB 3 ML DISP.SYRIN. ONE (13:20)
[2019-01-02] MEDS ORDERED: IODIXANOL 320 MG/ML 100 ML VIAL. ONE ×2 (13:20→14:22)
[2019-01-02] MEDS ORDERED: fentaNYL PF VIAL 100 MCG/2 ML VIAL ONE (13:52)
[2019-01-02] MEDS ORDERED: MIDAZOLAM HCL/PF 2 MG/2 ML VIAL. ONE (13:52)
--- NOTE | 2019-01-02 14:36 | PDOC ---
SUBJECTIVE ROS Stable , seen on HD OBJECTIVE Vital Signs Vital Signs Date Time Temp Pulse Resp B/P (MAP) Pulse Ox O2 Delivery O2 Flow Rate FiO2 01/02/19 13:07 Nasal Cannula 2.0 01/02/19 11:00 90 17 108/60 (76) 100 01/02/19 07:00 97.5 97.5 I & 0 Intake and Output 01/02/19 07:00 Intake Total 180 ml Output Total 0 ml Balance 180 ml Intake Oral 180 ml Output Urine Total 0 ml PHYSICAL EXAM Physical Exam General: NAD Cooperative HEENT: OM moist Lungs: Clear to auscultation, Non labored Heart: Regular rate, Normal S1, Normal S2 Abdomen: Normal bowel sounds, Soft Extremities: No edema Skin: No rashes, (rt breast lower outer and lower inner quadrant has post op sx wound with dressing on. + tenderness. ) Neuro: Grossly normal - no Weaver DIAGNOSIS/ASSESSMENT Assessment & Plan ESRD- MMF Dr. Giles , has been on HD for 3-4 years , No RRF Seen on HD, tolerating well, continue as ordered, Eddie Cárdenas Access- Currently Lt Forearm AVF Lt thumb infection- On Abx per ID ,Vascular following Fistulogram findings consistent with steal phenomenon. 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 COMMENT/RELEVANT DATA Meds Current Medications Medications (Trade) Dose Ordered Sig/Becki Start Time Stop Time Status Last Admin Dose Admin Acetaminophen (Tylenol) 500 mg 1X PRN PRN 01/02/19 08:30 01/03/19 08:29 Acetaminophen/ Hydrocodone Bitart (Lortab 10/325) 1 tab PRN Q6HRS PRN 12/27/18 16:30 01/02/19 08:04 1 TAB Albumin Human 200 ml @ 200 mls/hr 1X PRN PRN 12/28/18 08:15 12/28/18 14:14 DC Albuterol Sulfate (Ventolin Neb Soln) 2.5 mg RTQID 12/27/18 20:00 01/02/19 07:13 2.5 MG Aspirin (Children'S Aspirin) 81 mg DAILY 12/28/18 09:00 01/01/19 08:00 81 MG Atorvastatin Calcium (Lipitor) 20 mg HS 12/27/18 21:00 01/01/19 21:03 20 MG Bisacodyl (Dulcolax Supp) 10 mg PRN DAILY PRN 12/27/18 16:30 Budesonide (Pulmicort) 0.5 mg RTBID 12/27/18 20:00 01/02/19 07:14 0.5 MG Calcium Carbonate/ Glycine (Tums) 500 mg PRN Q3HRS PRN 12/27/18 16:30 Carvedilol (Coreg) 3.125 mg BIDWMEALS 12/30/18 09:00 01/01/19 16:49 3.125 MG Cefepime HCl (Maxipime) 1 gm Q24H 12/27/18 18:00 01/01/19 17:24 1 GM Clonidine HCl (Catapres) 0.1 mg PRN Q1HR PRN 12/27/18 16:30 Diclofenac Sodium (Voltaren) 100 charan PRN QID PRN 12/27/18 16:30 Diphenhydramine HCl (Benadryl) 25 mg 1X PRN PRN 01/02/19 08:30 01/03/19 08:29 Docusate Sodium (Colace) 100 mg BID 12/27/18 21:00 01/01/19 21:03 100 MG Fentanyl Citrate (Fentanyl 2ml Vial) 100 mcg STK-MED ONCE 01/02/19 13:52 01/02/19 13:53 DC Ferrous Sulfate (Feosol) 325 mg TIDWMEALS 12/27/18 17:00 01/01/19 16:48 325 MG Heparin Sodium (Porcine) (Heparin Sodium) 3,000 unit 1X ONCE 12/29/18 10:30 12/29/18 10:32 DC 12/29/18 10:30 3,000 UNIT Heparin Sodium/ Sodium Chloride 1,000 ml @ As Directed STK-MED ONCE 01/02/19 13:21 01/02/19 13:21 DC Heparin Sodium/ Sodium Chloride (HEPARIN for ARTERIAL LINE FLUSH) 1,000 unit 1X ONCE 12/29/18 10:00 12/29/18 10:01 DC 12/29/18 10:00 1,000 UNIT Info (CONTRAST GIVEN -- Rx MONITORING) 1 each PRN DAILY PRN 12/29/18 11:00 12/31/18 10:59 DC Info (PHARMACY MONITORING -- do not chart) 1 each PRN DAILY PRN 01/02/19 08:30 UNV Insulin Glargine (Lantus Syringe) 30 unit QHS 12/31/18 21:00 01/01/19 21:15 30 UNIT Insulin Human Lispro (HumaLOG) 10 units TIDWMEALS 01/02/19 07:45 Iodixanol (Visipaque 320) 100 ml STK-MED ONCE 01/02/19 14:22 01/02/19 14:22 DC Lactobacillus Rhamnosus (Culturelle) 1 cap BID 12/28/18 21:00 01/01/19 21:03 1 CAP Levothyroxine Sodium (Synthroid) 150 mcg DAILYAC 12/28/18 07:30 01/02/19 08:04 150 MCG Lidocaine HCl (Buffered Lidocaine 1%) 3 ml STK-MED ONCE 01/02/19 13:20 01/02/19 13:21 DC Losartan Potassium (Cozaar) 25 mg DAILY 01/02/19 09:00 Magnesium Hydroxide (Milk Of Magnesia) 2,400 mg PRN Q12HR PRN 12/27/18 16:30 Midazolam HCl (Versed) 2 mg STK-MED ONCE 01/02/19 13:52 01/02/19 13:53 DC Morphine Sulfate (Morphine Sulfate) 2 mg PRN Q2HR PRN 12/27/18 16:45 01/02/19 13:07 2 MG Non-Formulary Medication (Albuterol Sulfate (Ventolin Hfa Inhaler)) 2 puff QID 12/27/18 17:00 UNV Non-Formulary Medication (Fluticasone/ Vilanterol (Breo Ellipta 100-25 Mcg Inh)) 1 puff DAILY PRN 12/27/18 16:30 UNV Ondansetron HCl (Zofran) 4 mg PRN Q6HRS PRN 12/27/18 16:30 12/28/18 11:31 DC Oxycodone HCl (Roxicodone) 5 mg PRN Q3HRS PRN 12/27/18 16:30 01/02/19 01:38 5 MG Pantoprazole Sodium (Protonix) 40 mg DAILYAC 12/28/18 07:30 01/02/19 08:04 40 MG Sodium Polystyrene Sulfonate (Kayexalate) 15 gm 1X ONCE 12/28/18 05:45 12/28/18 05:46 DC 12/28/18 05:57 15 GM Sodium Chloride 1,000 ml @ 400 mls/hr Q2H30M PRN 01/02/19 08:18 01/02/19 20:17 Vancomycin HCl (Vanco Per Pharmacy) 1 each PRN DAILY PRN 12/27/18 17:15 01/02/19 10:29 1 EACH Vancomycin HCl (Vancomycin Random Level) 1 each 1X ONCE 01/04/19 06:00 01/04/19 06:01 Vancomycin HCl 1.5 gm/Sodium Chloride 500 ml @ 250 mls/hr 1X ONCE 12/27/18 17:30 12/27/18 19:29 DC 12/27/18 18:02 250 MLS/HR Vancomycin HCl 500 mg/Sodium Chloride 100 ml @ 100 mls/hr QMWF 12/30/18 16:00 12/30/18 19:50 100 MLS/HR Zolpidem Tartrate (Ambien) 5 mg PRN QHS PRN 12/27/18 16:30 Lab Laboratory Tests Test 01/01/19 16:22 01/01/19 20:34 01/02/19 07:36 01/02/19 13:13 Glucose (Fingerstick) 282 mg/dL (70-99) 387 mg/dL (70-99) 193 mg/dL (70-99) 114 mg/dL (70-99) Results All relevant outside records, renal labs, imaging studies, telemetry/EKG's were reviewed. RANI ERICKSON MD Jan 02, 2019 14:36
[2019-01-02] MEDS ORDERED: IODIXANOL 320 MG/ML 100 ML VIAL. IART ONE (14:45)
[2019-01-02] MEDS ORDERED: MIDAZOLAM HCL/PF 2 MG/2 ML VIAL. IV ONE (14:45)
[2019-01-02] MEDS ORDERED: LIDOCAINE WITH 8.4% SOD BICARB 3 ML DISP.SYRIN. IJ ONE (14:45)
[2019-01-02] MEDS ORDERED: fentaNYL PF VIAL 100 MCG/2 ML VIAL IV ONE (14:45)
--- NOTE | 2019-01-02 14:53 | PDOC ---
MODERATE SEDATION ASSESSMENT RISKS/ALTERNATIVES Risks/Alternatives Risks and alternatives of this type of sedation and procedure discussed with: RISK/ALTERNATIVES: Patient H & P ON CHART H & P H & P on chart and reviewed for co-morbid conditions and appropriate labs. H&P ON CHART: Yes STATUS PREG STATUS ASSESSED: Yes MEDS/ALLERGIES REVIEWED Meds/Allergies Reviewed Medications and Allergies including time and route of recently administered narcotics and sedatives. MEDS/ALLERGIES REVIEWED: Yes ASA RATING ASA RATING: III AIRWAY ASSESSMENT Airway Assessment Airway patency, oral function limitations, presence of caps, crowns, dentures, partials, and ability to extend neck assessed. AIRWAY ASSESSMENT: Yes MALLAMPATI SCORE MALLAMPATI SCORE: II, III PRE-SEDATION ASSESSMENT PRE-SEDATION ASSESSMENT: Yes MELISSA LÓPEZ MD Jan 02, 2019 14:53
--- NOTE | 2019-01-02 14:55 | PDOC ---
BRIEF OPERATIVE NOTE Pre-Op Diagnosis Arterial steal Post-Op Diagnosis same Procedure Performed Aortogram and Left Upper Extremity Angiogram Surgeon Marcelle Anesthesia Type: Conscious Sedation Findings No left subclavian, axillary, brachial or radial artery stenosis. High flow AVF steals from distal radial artery. Complications No immediate MELISSA LÓPEZ MD Jan 02, 2019 14:55
--- NOTE | 2019-01-02 15:13 | NUR ---
Patient back from Angiogram, hooked up to protocol for frequent vitals, lying flat with bed tilted reverse trendelenberg. Vital signs within normal limits. Will continue to monitor access site with each set of vital signs.
[2019-01-02] MEDS: VANCOMYCIN 500 MG in IV NORMAL SALINE 100ML 100 ML IV SCH (15:44)
--- NOTE | 2019-01-02 15:45 | NUR ---
Wound Care: Patient seen per wound care Follow up with L thumb and 3rd fingers. Wounds cleansed, assessed, measured, pictured. Redressed with Betadine, nonadherent gauze pads and kerlix. Stockinette applied. Dressing change instructions left in room. Patient tolerated well with some pain. Will follow up with patient next week on 01/10/19. Bed lowered and call light in reach, family at bedside.
--- NOTE | 2019-01-02 16:30 | RAD ---
Procedure: Aortogram and left upper extremity arteriogram, diagnostic Clinical Indication: 68-year-old with left upper extremity arterial steal syndrome associated with a left arm AV fistula Sedation: Conscious sedation was administered with a total intraprocedural [id number] time of 46 minutes. The patient was monitored by a qualified independent observer throughout the time of sedation. Please refer to the medical record for exact doses of medications utilized to achieve moderate sedation. Antibiotics: None Exposure: Kerma-Area Product: 322 Gycm2 Sterility: All elements of maximal sterile barrier technique including the use of a cap, mask, sterile gown, sterile gloves, large sterile sheet, appropriate hand hygiene, and 2% chlorhexidine for cutaneous antisepsis (or acceptable alternative antiseptic per current guidelines) were followed for this procedure. Consent: The procedure was explained in its entirety to the patient or the patients designated sales representative education courses by a member of the treatment team, including a discussion of the risks, benefits and commonly accepted alternatives to the procedure, as well as the expected consequences of no therapy whatsoever. Discussion of the risks included, but was not limited to, those that are most frequent and those that are rare but possibly severe or life-threatening, as well as the possibility of unforeseen complications. Technique and Findings: Following informed consent, the patient was prepped and draped in the usual sterile fashion. A 3 mm wound was seen to be present in the medial aspect of the left groin, approximately 2 cm medial and 1 cm caudal to the anticipated puncture site. This fluid was prepped with chloro prep and covered for the examination. Ultrasound interrogation of the right groin revealed patency of the right common femoral artery. A hardcopy ultrasound image was recorded as a 21-gauge micropuncture needle was used to gain access to this vessel. The needle was exchanged over wire for a 5 [place] sheath. A flush catheter was advanced into the ascending aorta and contrast aortography was performed. No aortic stenosis is present. No aneurysms are seen. The left subclavian artery is patent at its origin. An angled catheter was then advanced into the proximal left subclavian artery and contrast angiography of the entire left upper extremity was performed. The left subclavian, axillary, and brachial arteries are widely patent with no significant atherosclerotic disease. The left radial artery is widely patent throughout the proximal and mid arm, and remains patent distally, though there is markedly decreased flow distal to the AV fistula anastomosis, and there is brisk egress of flow into the anastomosis which is seen on profile to be widely patent. The catheter wire were then removed and contrast angiography of the right groin was performed to assess for suitability of a closure device. The sheath was then exchanged for a minx closure device which was successfully utilized to obtain hemostasis. Complications: No immediate Impression: 1. Aortogram and left upper extremity arteriogram demonstrating wide patency of the subclavian, axillary, brachial, and radial arteries of the left arm. 2. Delayed flow in the distal radial artery with brisk flow in the AV fistula likely constitutes arterial steal as a consequence of high venous outflow.
[2019-01-02] MEDS: CEFEPIME HCL IV Push 1 GM VIAL. IVP SCH (17:16)
[2019-01-02] MEDS: ATORVASTATIN CALCIUM 20 MG TABLET PO SCH (22:35)
[2019-01-02] MEDS: INSULIN GLARGINE SYRINGE. SQ SCH (22:41)
[2019-01-03] VITALS (11 sets, daily range): BP systolic 51–131; BP diastolic 43–74
[2019-01-03] MEDS: HYDROcodone/APAP 10/325 1 TAB TABLET PO PRN ×2 (02:33→08:38)
[2019-01-03] MEDS: ALBUTEROL SULFATE 2.5 MG/3 ML NEBU. NEB SCH ×4 (07:40→20:00)
[2019-01-03] MEDS: BUDESONIDE 0.5 MG/2 ML NEBU. NEB SCH ×2 (07:40→20:00)
--- NOTE | 2019-01-03 08:17 | PDOC ---
Provider Note Provider Note Vascular S: Patient seen in room. Continues to complain of left thumb pain. Some relief with oxycodone. NPO for procedure O: Awake and alert VSS, afebrile HRR Non-labored respirations Left thumb with gangrene and malodorous. Able to move fingers, limited in thumb. Palpable thrill left arm fistula unable to palpate radial or ulnar pulse. Weakly palpable brachial pulse, unable to palpate radial and ulnar pulse right hand. Aortogram: Impression: 1. Aortogram and left upper extremity arteriogram demonstrating wide patency of the subclavian, axillary, brachial, and radial arteries of the left arm. 2. Delayed flow in the distal radial artery with brisk flow in the AV fistula likely constitutes arterial steal as a consequence of high venous outflow. A/P: ESRD on dialysis Vascular steal left hand due to A-V fistula Left thumb infection. Continue Aspirin daily. Will ask vascular surgeon to review angiogram and make additional recommendations. Patient will need possible fistula ligation and debridement versus amputation. Venous mapping and arterial ultrasound right upper extremity. Plan left arm fistula ligation with surgical debridement left thumb, possible amputation and third finger tip debridement today. Patient will need PC placement in am with IR. Agree with the above note. I was called by Dorothy Morfin today after she saw the patient and found worsening gangrene of the left thumb. I reviewed case and added her on for surgery today. On my exam she has a left arm radiocephalic fistula with steal to the hand causing gangrene of the entire plantar surface of the thumb and left 2nd finger tip ulcer. Angiogram showed patency of the left arm major arteries with steal in the forearm to the fistula. The radial artery is patent with fistula compression. Recommend ligation of the fistula to improve circulation to the hand. She will need extensive debridement of the left thumb with possible amputation in the entire bone is exposed. If debridement is possible a wound vac will be placed and usp wound care and eventual skin graft will be needed. The left 3rd finger tip will be debrided as well. Recommend catheter based dialysis until her hand has healed. Will have permacath placed by IR tomorrow before dialysis. DOROTHY Crockett MD, APRN Jan 03, 2019 08:17 AYSE LOGAN MD Jan 03, 2019 15:08
[2019-01-03] MEDS: DOCUSATE SODIUM 100 MG CAPSULE. PO SCH ×2 (08:25→21:00)
[2019-01-03] MEDS: ASPIRIN CHEWABLE 81 MG TABLET. PO SCH (08:25)
[2019-01-03] MEDS: LACTOBACILLUS RHAMNOSUS GG 1 CAPSULE. PO SCH ×2 (08:25→21:00)
[2019-01-03] MEDS: LEVOTHYROXINE 150 MCG TABLET PO SCH (08:25)
[2019-01-03] MEDS: CARVEDILOL 3.125 MG TABLET. PO SCH ×2 (08:25→17:00)
[2019-01-03] MEDS: PANTOPRAZOLE 40 MG TABLET.DR. PO SCH (08:26)
[2019-01-03] MEDS: FERROUS SULFATE 325 MG TABLET. PO SCH ×3 (08:26→17:00)
[2019-01-03] MEDS: INSULIN LISPRO 300 UNITS/3 ML VIAL. SQ SCH ×3 (08:37→17:00)
--- NOTE | 2019-01-03 08:46 | PDOC ---
Infectious Disease Note Subjective Subjective Doing well but some finger pain Denies numbness/tingling No F/C/N/V Vital Sign Vital Signs Vital Signs Date Time Temp Pulse Resp B/P (MAP) Pulse Ox O2 Delivery O2 Flow Rate FiO2 01/03/19 08:38 Nasal Cannula 2.0 01/03/19 08:25 86 119/43 01/03/19 07:42 100 01/03/19 07:00 97.3 17 97.3 Physical Exam PHYSICAL EXAM GENERAL: Sitting on side of bed, alert, in HD HEENT: Oral mucosa moist. No thrush NECK: Supple LUNGS: Clear bilaterally. HEART: S1, S2. ABDOMEN: Soft, obese. Bowel sounds present, nontender. EXTREMITIES: Edema present, chronic. DERMATOLOGIC: Left hand with dressing in place NEUROLOGIC: Alert, answers questions appropriately Labs Lab Laboratory Tests Test 01/02/19 13:13 01/02/19 16:49 01/02/19 21:19 01/03/19 08:09 Glucose (Fingerstick) 114 mg/dL (70-99) 135 mg/dL (70-99) 228 mg/dL (70-99) 231 mg/dL (70-99) Micro AEROBIC RES 1 Final Enterococcus species Enterococcus faecalis 4+ AEROBIC RES 2 Final Mixed skin emre 4+ Performed at: [facility] [id number], [place], [place] [id number] Clothes Designer: BOBBY Mahajan MD, Phone: [phone] ANTIMICROBIAL SUSCEPTIBILITY Final Comment S = Susceptible; I = Intermediate; R = Resistant P = Positive; N = Negative MICS are expressed in micrograms per mL Antibiotic RSLT#1 RSLT#2 RSLT#3 RSLT#4 Penicillin S =1 Vancomycin S =1 Microbiology 12/27/18 Aerobic Culture - Final, Complete 12/27/18 Aerobic Culture Result 1 (MANPREET) - Final, Complete 12/27/18 Aerobic Culture Result 2 (MANPREET) - Final, Complete 12/27/18 Antimicrobic Susceptibility - Final, Complete 12/27/18 Gram Stain - Final, Complete 12/27/18 Gram Stain Result 1 (MANPREET) - Final, Complete 12/27/18 Gram Stain Result 2 (MANPREET) - Final, Complete 12/27/18 Gram Stain Result 3 (MANPREET) - Final, Complete Objective Assessment Left thumb infection, C/S GPC,GPR - mixed skin emre & enterococcus spp 12/27 Left 3rd finger dry eschar Leukocytosis - stable in part reactive with steal Steal phenomenon End-stage renal disease, on hemodialysis.thru LUE fistula, w/u for steal phenomenon Diabetes mellitus, uncontrolled. History of breast abscess with MSSA, Klebsiella and E. coli 04/2018. PPM in place. Plan Plan of Care cont cefepime and vanco renal dosing for dialysis local wound care f/u c.s and labs await vascular recommendations arteriogram performed may need surgical procedure D/w family and nursing KINGSTON HERNANDEZ MD Jan 03, 2019 08:46
[2019-01-03] MEDS ORDERED: IV RINGERS,LACTATED 1000ML 1,000 ML IV SCH (10:49)
[2019-01-03] MEDS ORDERED: PROCHLORPERAZINE 10 MG/2 ML VIAL. IV PRN (11:00)
[2019-01-03] MEDS ORDERED: MORPHINE SULFATE 2 MG/ML VIAL. IV PRN (11:00)
[2019-01-03] MEDS ORDERED: LIDOCAINE 1% PF 2 ML VIAL. ID PRN (11:00)
[2019-01-03] MEDS ORDERED: ONDANSETRON PF 4 MG/2 ML VIAL. IV PRN (11:00)
[2019-01-03 11:08] LABS: BASO # 0.1 x10^3/uL (0.0-0.2); BASO % 1 % (0-3); EOS # 0.2 x10^3/uL (0.0-0.7); EOS % 1 % (0-3); HEMATOCRIT 34.5 % (39.0-53.0); HEMOGLOBIN 10.3 g/dL (13.0-17.5); LYMPH # 0.7 x10^3/uL (1.0-4.8); LYMPH % 5 % (24-48); MEAN CORPUSCULAR HEMOGLOBIN 31 pg (25-35); MEAN CORPUSCULAR HGB CONC 30 g/dL (31-37); MEAN CORPUSCULAR VOLUME 105 fL (79-100); MONO # 0.9 x10^3/uL (0.0-1.1); MONO % 7 % (0-9); NEUT % 86 % (31-73); PLATELET COUNT 299 x10^3/uL (140-400); RED BLOOD COUNT 3.29 x10^6/uL (4.30-5.70); RED CELL DISTRIBUTION WIDTH 15.5 % (11.5-14.5)
--- NOTE | 2019-01-03 11:17 | PDOC ---
PROGRESS NOTES Chief Complaint Chief Complaint 1. Cellulitis left thumb, unroofed at Wound clinic, r.o osteomyelitis 2. 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 Left arm AV fistula 4. LEft third middle finger resolving cellulitis (reported self manipulation ) with eschar formation 5. ESRD MWF HD 6. AOCD 7. MAXIMILIAN< Obesity, hypothyroidism, HTN, CAD hx, lipids- chronic stable 8. LABILE BP 9. Indwelling ICD 10 LABILE DM History of Present Illness History of Present Illness LABILE BP and BS Adjustments made and seems plateaud today DTr at bedside I undressed the left thumb dressing, looks like skin there Dw wound care, vasc sx on case Arteriogram done, good AV fistula patent but dec flow radial artery Awaiting plans from vasc sx There was a mention amputation but that is not something definite yet WOund care and ID on board,.renal dosing abx as HD too SHe does have leukocytosis but no fevers and non toxic appearing PLAN; VAsc sx is brain storming proper treatment plan for her WOund care and ID is following (the left thumb was unroofed at the wound clinic then advised admissioN) HD per renal MEanwhile, i resumed ARB and dec insulin coverage Discussed extensively with pleasant dtrs at bedside time 31 mins in room SHe si BPCI, slated fo [facility] on dc Vitals Vitals Vital Signs Date Time Temp Pulse Resp B/P (MAP) Pulse Ox O2 Delivery O2 Flow Rate FiO2 01/03/19 08:38 Nasal Cannula 2.0 01/03/19 08:25 86 119/43 01/03/19 07:42 100 01/03/19 07:00 97.3 17 97.3 Physical Exam Physical Exam GENERAL: Sitting on side of bed, alert, in HD HEENT: Oral mucosa moist. No thrush NECK: Supple LUNGS: Clear bilaterally. HEART: S1, S2. ABDOMEN: Soft, obese. Bowel sounds present, nontender. EXTREMITIES: Edema present, chronic. DERMATOLOGIC: Left hand with dressing in place NEUROLOGIC: Alert, answers questions appropriately General: Alert, Oriented X3, Other Heart: Regular rate, Normal S1, Normal S2, No murmurs Lungs: Clear Abdomen: Normal bowel sounds, Soft, No tenderness Extremities: Other Skin: Other Labs LABS Laboratory Tests Test 01/02/19 13:13 01/02/19 16:49 01/02/19 21:19 01/03/19 08:09 Glucose (Fingerstick) 114 mg/dL (70-99) 135 mg/dL (70-99) 228 mg/dL (70-99) 231 mg/dL (70-99) Test 01/03/19 10:45 White Blood Count 14.0 x10^3/uL (4.0-11.0) Red Blood Count 3.29 x10^6/uL (4.30-5.70) Hemoglobin 10.3 g/dL (13.0-17.5) Hematocrit 34.5 % (39.0-53.0) Mean Corpuscular Volume 105 fL (79-100) Mean Corpuscular Hemoglobin 31 pg (25-35) Mean Corpuscular Hemoglobin Concent 30 g/dL (31-37) Red Cell Distribution Width 15.5 % (11.5-14.5) Platelet Count 299 x10^3/uL (140-400) Neutrophils (%) (Auto) 86 % (31-73) Lymphocytes (%) (Auto) 5 % (24-48) Monocytes (%) (Auto) 7 % (0-9) Eosinophils (%) (Auto) 1 % (0-3) Basophils (%) (Auto) 1 % (0-3) Neutrophils # (Auto) 12.0 x10^3/uL (1.8-7.7) Lymphocytes # (Auto) 0.7 x10^3/uL (1.0-4.8) Monocytes # (Auto) 0.9 x10^3/uL (0.0-1.1) Eosinophils # (Auto) 0.2 x10^3/uL (0.0-0.7) Basophils # (Auto) 0.1 x10^3/uL (0.0-0.2) Review of Systems Review of Systems pain left thumb, weak, all else is neg Comment Review of Relevant I have reviewed the following items filippo (where applicable) has been applied. Labs Laboratory Tests Test 01/01/19 11:39 01/01/19 16:22 01/01/19 20:34 01/02/19 07:36 Glucose (Fingerstick) 228 mg/dL (70-99) 282 mg/dL (70-99) 387 mg/dL (70-99) 193 mg/dL (70-99) Test 01/02/19 13:13 01/02/19 16:49 01/02/19 21:19 01/03/19 08:09 Glucose (Fingerstick) 114 mg/dL (70-99) 135 mg/dL (70-99) 228 mg/dL (70-99) 231 mg/dL (70-99) Test 01/03/19 10:45 White Blood Count 14.0 x10^3/uL (4.0-11.0) Red Blood Count 3.29 x10^6/uL (4.30-5.70) Hemoglobin 10.3 g/dL (13.0-17.5) Hematocrit 34.5 % (39.0-53.0) Mean Corpuscular Volume 105 fL (79-100) Mean Corpuscular Hemoglobin 31 pg (25-35) Mean Corpuscular Hemoglobin Concent 30 g/dL (31-37) Red Cell Distribution Width 15.5 % (11.5-14.5) Platelet Count 299 x10^3/uL (140-400) Neutrophils (%) (Auto) 86 % (31-73) Lymphocytes (%) (Auto) 5 % (24-48) Monocytes (%) (Auto) 7 % (0-9) Eosinophils (%) (Auto) 1 % (0-3) Basophils (%) (Auto) 1 % (0-3) Neutrophils # (Auto) 12.0 x10^3/uL (1.8-7.7) Lymphocytes # (Auto) 0.7 x10^3/uL (1.0-4.8) Monocytes # (Auto) 0.9 x10^3/uL (0.0-1.1) Eosinophils # (Auto) 0.2 x10^3/uL (0.0-0.7) Basophils # (Auto) 0.1 x10^3/uL (0.0-0.2) Laboratory Tests Test 01/02/19 13:13 01/02/19 16:49 01/02/19 21:19 01/03/19 08:09 Glucose (Fingerstick) 114 mg/dL (70-99) 135 mg/dL (70-99) 228 mg/dL (70-99) 231 mg/dL (70-99) Test 01/03/19 10:45 White Blood Count 14.0 x10^3/uL (4.0-11.0) Red Blood Count 3.29 x10^6/uL (4.30-5.70) Hemoglobin 10.3 g/dL (13.0-17.5) Hematocrit 34.5 % (39.0-53.0) Mean Corpuscular Volume 105 fL (79-100) Mean Corpuscular Hemoglobin 31 pg (25-35) Mean Corpuscular Hemoglobin Concent 30 g/dL (31-37) Red Cell Distribution Width 15.5 % (11.5-14.5) Platelet Count 299 x10^3/uL (140-400) Neutrophils (%) (Auto) 86 % (31-73) Lymphocytes (%) (Auto) 5 % (24-48) Monocytes (%) (Auto) 7 % (0-9) Eosinophils (%) (Auto) 1 % (0-3) Basophils (%) (Auto) 1 % (0-3) Neutrophils # (Auto) 12.0 x10^3/uL (1.8-7.7) Lymphocytes # (Auto) 0.7 x10^3/uL (1.0-4.8) Monocytes # (Auto) 0.9 x10^3/uL (0.0-1.1) Eosinophils # (Auto) 0.2 x10^3/uL (0.0-0.7) Basophils # (Auto) 0.1 x10^3/uL (0.0-0.2) Microbiology 12/27/18 Aerobic Culture - Final, Complete 12/27/18 Aerobic Culture Result 1 (MANPREET) - Final, Complete 12/27/18 Aerobic Culture Result 2 (MANPREET) - Final, Complete 12/27/18 Antimicrobic Susceptibility - Final, Complete 12/27/18 Gram Stain - Final, Complete 12/27/18 Gram Stain Result 1 (MANPREET) - Final, Complete 12/27/18 Gram Stain Result 2 (MANPREET) - Final, Complete 12/27/18 Gram Stain Result 3 (MANPREET) - Final, Complete Medications Current Medications Ondansetron HCl (Zofran) 4 mg PRN Q6HRS PRN IV NAUSEA/VOMITING; Start 12/27/18 at 16:30 Calcium Carbonate/ Glycine (Tums) 500 mg PRN Q3HRS PRN PO UPSET STOMACH; Start 12/27/18 at 16:30 Zolpidem Tartrate (Ambien) 5 mg PRN QHS PRN PO INSOMNIA, MAY REPEAT IN 1HR; Start 12/27/18 at 16:30 Oxycodone HCl (Roxicodone) 5 mg PRN Q3HRS PRN PO BREAKTHROUGH PAIN Last administered on 01/02/19at 01:38; Start 12/27/18 at 16:30 Morphine Sulfate (Morphine Sulfate) 1 mg PRN Q1HR PRN IV PAIN; Start 12/27/18 at 16:30; Stop 12/27/18 at 16:39; Status DC Acetaminophen (Tylenol) 650 mg PRN Q6HRS PRN PO Headaches, Temp > 101.5F; Start 12/27/18 at 16:30 Docusate Sodium (Colace) 100 mg BID PO Last administered on 01/03/19at 08:25; Start 12/27/18 at 21:00 Magnesium Hydroxide (Milk Of Magnesia) 2,400 mg PRN Q12HR PRN PO CONSTIPATION; Start 12/27/18 at 16:30 Bisacodyl (Dulcolax Supp) 10 mg PRN DAILY PRN [place] CONSTIPATION; Start 12/27/18 at 16:30 Ondansetron HCl (Zofran) 4 mg PRN Q6HRS PRN IVP NAUSEA/VOMITING; Start 12/27/18 at 16:30; Stop 12/28/18 at 11:31; Status DC Clonidine HCl (Catapres) 0.1 mg PRN Q1HR PRN PO HYPERTENSION; Start 12/27/18 at 16:30 Aspirin (Children'S Aspirin) 81 mg DAILY PO Last administered on 01/03/19at 08:25; Start 12/28/18 at 09:00 Atorvastatin Calcium (Lipitor) 20 mg HS PO Last administered on 01/02/19at 22:35; Start 12/27/18 at 21:00 Carvedilol (Coreg) 6.25 mg BIDWMEALS PO Last administered on 12/29/18at 17:39; Start 12/27/18 at 17:00; Stop 12/30/18 at 09:02; Status DC Diclofenac Sodium (Voltaren) 100 charan PRN QID PRN TP PAIN; Start 12/27/18 at 16:30 Ferrous Sulfate (Feosol) 325 mg TIDWMEALS PO Last administered on 01/03/19 08:26; Start 12/27/18 at 17:00 Acetaminophen/ Hydrocodone Bitart (Lortab 10/325) 1 tab PRN Q6HRS PRN PO MODERATE PAIN Last administered on 01/03/19 08:38; Start 12/27/18 at 16:30 Levothyroxine Sodium (Synthroid) 150 mcg DAILYAC PO Last administered on 01/03/19 08:25; Start 12/28/18 at 07:30 Losartan Potassium (Cozaar) 25 mg DAILY PO ; Start 12/28/18 at 09:00; Stop 12/31/18 at 09:09; Status DC Non-Formulary Medication (Albuterol Sulfate (Ventolin Hfa Inhaler)) 2 puff QID INH ; Start 12/27/18 at 17:00; Status UNV Non-Formulary Medication (Fluticasone/ Vilanterol (Breo Ellipta 100-25 Mcg Inh)) 1 puff DAILY PRN IH daily; Start 12/27/18 at 16:30; Status UNV Insulin Human Lispro (HumaLOG) 10 units TIDWMEALS SQ Last administered on 12/30/18 20:05; Start 12/27/18 at 17:30; Stop 12/31/18 at 07:32; Status DC Pantoprazole Sodium (Protonix) 40 mg DAILYAC PO Last administered on 01/03/19 08:26; Start 12/28/18 at 07:30 Albuterol Sulfate (Ventolin Neb Soln) 2.5 mg RTQID NEB Last administered on 01/03/19 07:40; Start 12/27/18 at 20:00 Budesonide (Pulmicort) 0.5 mg RTBID NEB Last administered on 01/03/19 07:40; Start 12/27/18 at 20:00 Morphine Sulfate (Morphine Sulfate) 2 mg PRN Q2HR PRN IV PAIN Last administered on 01/02/19 13:07; Start 12/27/18 at 16:45 Cefepime HCl (Maxipime) 1 gm Q24H IVP Last administered on 01/02/19 17:16; Start 12/27/18 at 18:00 Vancomycin HCl (Vanco Per Pharmacy) 1 each PRN DAILY PRN MC SEE COMMENTS Last administered on 01/02/19at 10:29; Start 12/27/18 at 17:15 Vancomycin HCl 1.5 gm/Sodium Chloride 500 ml @ 250 mls/hr 1X ONCE IV Last administered on 12/27/18at 18:02; Start 12/27/18 at 17:30; Stop 12/27/18 at 19:29; Status DC Vancomycin HCl (Vancomycin Random Level) 1 each 1X ONCE MC Last administered on 12/28/18at 06:00; Start 12/28/18 at 06:00; Stop 12/28/18 at 06:01; Status DC Sodium Polystyrene Sulfonate (Kayexalate) 15 gm 1X ONCE PO Last administered on 12/28/18at 05:57; Start 12/28/18 at 05:45; Stop 12/28/18 at 05:46; Status DC Sodium Chloride 1,000 ml @ 1,000 mls/hr Q1H PRN IV hypotension; Start 12/28/18 at 08:10; Stop 12/28/18 at 14:09; Status DC Albumin Human 200 ml @ 200 mls/hr 1X PRN PRN IV Hypotension; Start 12/28/18 at 08:15; Stop 12/28/18 at 14:14; Status DC Acetaminophen (Tylenol) 500 mg 1X PRN PRN PO MILD PAIN / TEMP; Start 12/28/18 at 08:15; Stop 12/29/18 at 08:14; Status DC Diphenhydramine HCl (Benadryl) 25 mg 1X PRN PRN IV ITCHING; Start 12/28/18 at 08:15; Stop 12/29/18 at 08:14; Status DC Diphenhydramine HCl (Benadryl) 25 mg 1X PRN PRN IV ITCHING; Start 12/28/18 at 08:15; Stop 12/29/18 at 08:14; Status DC Sodium Chloride 1,000 ml @ 400 mls/hr Q2H30M PRN IV PATENCY; Start 12/28/18 at 08:10; Stop 12/28/18 at 20:09; Status DC Info (PHARMACY MONITORING -- do not chart) 1 each PRN DAILY PRN MC SEE COMMENTS; Start 12/28/18 at 08:15; Stop 12/30/18 at 13:48; Status DC Vancomycin HCl 500 mg/Sodium Chloride 100 ml @ 100 mls/hr QMWF IV Last administered on 01/02/19at 15:44; Start 12/30/18 at 16:00 Lactobacillus Rhamnosus (Culturelle) 1 cap BID PO Last administered on 01/03/19at 08:25; Start 12/28/18 at 21:00 Iodixanol (Visipaque 320) 100 ml STK-MED ONCE .ROUTE ; Start 12/29/18 at 09:27; Stop 12/29/18 at 09:27; Status DC Lidocaine HCl (Buffered Lidocaine 1%) 3 ml STK-MED ONCE .ROUTE ; Start 12/29/18 at 09:27; Stop 12/29/18 at 09:27; Status DC Heparin Sodium/ Sodium Chloride 500 ml @ As Directed STK-MED ONCE .ROUTE ; Start 12/29/18 at 09:27; Stop 12/29/18 at 09:27; Status DC Midazolam HCl (Versed) 2 mg STK-MED ONCE .ROUTE ; Start 12/29/18 at 09:29; Stop 12/29/18 at 09:29; Status DC Fentanyl Citrate (Fentanyl 2ml Vial) 100 mcg STK-MED ONCE .ROUTE ; Start 12/29/18 at 09:29; Stop 12/29/18 at 09:29; Status DC Heparin Sodium (Porcine) (Heparin Sodium) 10,000 unit STK-MED ONCE .ROUTE ; Start 12/29/18 at 09:29; Stop 12/29/18 at 09:30; Status DC Heparin Sodium/ Sodium Chloride (HEPARIN for ARTERIAL LINE FLUSH) 1,000 unit 1X ONCE IART Last administered on 12/29/18at 10:00; Start 12/29/18 at 10:00; Stop 12/29/18 at 10:01; Status DC Lidocaine HCl (Buffered Lidocaine 1%) 3 ml 1X ONCE IJ Last administered on at 10:00; Start 12/29/18 at 10:00; Stop 12/29/18 at 10:01; Status DC Midazolam HCl (Versed) 2 mg 1X ONCE IV Last administered on 12/29/18at 10:00; Start 12/29/18 at 10:00; Stop 12/29/18 at 10:01; Status DC Fentanyl Citrate (Fentanyl 2ml Vial) 100 mcg 1X ONCE IV Last administered on 12/29/18at 10:00; Start 12/29/18 at 10:00; Stop 12/29/18 at 10:01; Status DC Iodixanol (Visipaque 320) 100 ml 1X ONCE IART Last administered on 12/29/18at 10:00; Start 12/29/18 at 10:00; Stop 12/29/18 at 10:01; Status DC Heparin Sodium (Porcine) (Heparin Sodium) 3,000 unit 1X ONCE IV Last administered on 12/29/18at 10:30; Start 12/29/18 at 10:30; Stop 12/29/18 at 10:32; Status DC Iodixanol (Visipaque 320) 50 ml STK-MED ONCE .ROUTE ; Start 12/29/18 at 10:43; Stop 12/29/18 at 10:43; Status DC Iodixanol (Visipaque 320) 50 ml 1X ONCE IART Last administered on 12/29/18at 10:45; Start 12/29/18 at 10:45; Stop 12/29/18 at 10:46; Status DC Info (CONTRAST GIVEN -- Rx MONITORING) 1 each PRN DAILY PRN MC SEE COMMENTS; Start 12/29/18 at 11:00; Stop 12/31/18 at 10:59; Status DC Carvedilol (Coreg) 3.125 mg BIDWMEALS PO Last administered on 01/03/19at 08:25; Start 12/30/18 at 09:00 Insulin Glargine (Lantus Syringe) 20 unit QHS SQ Last administered on 12/30at 21:00; Start 12/30/18 at 21:00; Stop 12/31/18 at 07:32; Status DC Insulin Glargine (Lantus Syringe) 10 unit ONCE ONCE SQ Last administered on 12/30/18at 09:48; Start 12/30/18 at 10:00; Stop 12/30/18 at 10:01; Status DC Sodium Chloride 1,000 ml @ 1,000 mls/hr Q1H PRN IV hypotension; Start 12/30/18 at 12:21; Stop 12/30/18 at 18:20; Status DC Diphenhydramine HCl (Benadryl) 25 mg 1X PRN PRN IV ITCHING; Start 12/30/18 at 12:30; Stop 12/31/18 at 12:29; Status DC Diphenhydramine HCl (Benadryl) 25 mg 1X PRN PRN IV ITCHING; Start 12/30/18 at 12:30; Stop 12/31/18 at 12:29; Status DC Sodium Chloride 1,000 ml @ 400 mls/hr Q2H30M PRN IV PATENCY; Start 12/30/18 at 12:21; Stop 12/31/18 at 00:20; Status DC Info (PHARMACY MONITORING -- do not chart) 1 each PRN DAILY PRN MC SEE COMMENTS; Start 12/30/18 at 12:30 Insulin Human Lispro (HumaLOG) 15 units 1X ONCE SQ Last administered on 12/30/18at 22:59; Start 12/30/18 at 23:00; Stop 12/30/18 at 23:01; Status DC Insulin Glargine (Lantus Syringe) 30 unit QHS SQ Last administered on 01/02/19at 22:41; Start 12/31/18 at 21:00 Insulin Human Lispro (HumaLOG) 15 units TIDWMEALS SQ Last administered on 01/01/19at 08:22; Start 12/31/18 at 08:00; Stop 01/01/19 at 08:35; Status DC Insulin Human Lispro (HumaLOG) 8 units TIDWMEALS SQ Last administered on 01/01/19at 16:52; Start 01/01/19 at 12:00; Stop 01/02/19 at 07:40; Status DC Insulin Human Lispro (HumaLOG) 12 units 1X ONCE SQ Last administered on 01/01/19at 21:14; Start 01/01/19 at 21:00; Stop 01/01/19 at 21:01; Status DC Losartan Potassium (Cozaar) 25 mg DAILY PO ; Start 01/02/19 at 09:00 Insulin Human Lispro (HumaLOG) 10 units TIDWMEALS SQ Last administered on 01/03/19at 08:37; Start 01/02/19 at 07:45 Sodium Chloride 1,000 ml @ 1,000 mls/hr Q1H PRN IV hypotension; Start 01/02/19 at 08:18; Stop 01/02/19 at 14:17; Status DC Acetaminophen (Tylenol) 500 mg 1X PRN PRN PO MILD PAIN / TEMP; Start 01/02/19 at 08:30; Stop 01/03/19 at 08:29; Status DC Diphenhydramine HCl (Benadryl) 25 mg 1X PRN PRN IV ITCHING; Start 01/02/19 at 08:30; Stop 01/03/19 at 08:29; Status DC Diphenhydramine HCl (Benadryl) 25 mg 1X PRN PRN IV ITCHING; Start 01/02/19 at 08:30; Stop 01/03/19 at 08:29; Status DC Sodium Chloride 1,000 ml @ 400 mls/hr Q2H30M PRN IV PATENCY; Start 01/02/19 at 08:18; Stop 01/02/19 at 20:17; Status DC Info (PHARMACY MONITORING -- do not chart) 1 each PRN DAILY PRN MC SEE COMMENTS; Start 01/02/19 at 08:30; Status UNV Vancomycin HCl (Vancomycin Random Level) 1 each 1X ONCE MC ; Start 01/04/19 at 06:00; Stop 01/04/19 at 06:01 Iodixanol (Visipaque 320) 100 ml STK-MED ONCE .ROUTE ; Start 01/02/19 at 13:20; Stop 01/02/19 at 13:20; Status DC Lidocaine HCl (Buffered Lidocaine 1%) 3 ml STK-MED ONCE .ROUTE ; Start 01/02/19 at 13:20; Stop 01/02/19 at 13:21; Status DC Heparin Sodium/ Sodium Chloride 1,000 ml @ As Directed STK-MED ONCE .ROUTE ; Start 01/02/19 at 13:21; Stop 01/02/19 at 13:21; Status DC Midazolam HCl (Versed) 2 mg STK-MED ONCE .ROUTE ; Start 01/02/19 at 13:52; Stop 01/02/19 at 13:53; Status DC Fentanyl Citrate (Fentanyl 2ml Vial) 100 mcg STK-MED ONCE .ROUTE ; Start 01/02/19 at 13:52; Stop 01/02/19 at 13:53; Status DC Iodixanol (Visipaque 320) 100 ml STK-MED ONCE .ROUTE ; Start 01/02/19 at 14:22; Stop 01/02/19 at 14:22; Status DC Heparin Sodium/ Sodium Chloride (HEPARIN for ARTERIAL LINE FLUSH) 1,000 unit 1X ONCE IART Last administered on 01/02/19at 14:51; Start 01/02/19 at 14:45; Stop 01/02/19 at 15:04; Status DC Heparin Sodium/ Sodium Chloride (HEPARIN for ARTERIAL LINE FLUSH) 1,000 unit 1X ONCE IART Last administered on 01/02/19at 14:45; Start 01/02/19 at 14:45; Stop 01/02/19 at 15:04; Status DC Lidocaine HCl (Buffered Lidocaine 1%) 2 ml 1X ONCE IJ Last administered on 01/02/19at 14:52; Start 01/02/19 at 14:45; Stop 01/02/19 at 15:04; Status DC Midazolam HCl (Versed) 1 mg 1X ONCE IV Last administered on 01/02/19at 14:52; Start 01/02/19 at 14:45; Stop 01/02/19 at 15:04; Status DC Fentanyl Citrate (Fentanyl 2ml Vial) 25 mcg 1X ONCE IV Last administered on 01/02/19at 14:53; Start 01/02/19 at 14:45; Stop 01/02/19 at 15:04; Status DC Iodixanol (Visipaque 320) 100 ml 1X ONCE IART Last administered on 01/02/19at 14:52; Start 01/02/19 at 14:45; Stop 01/02/19 at 15:04; Status DC Ondansetron HCl (Zofran) 4 mg PRN Q6HRS PRN IV NAUSEA/VOMITING; Start 01/03/19 at 11:00; Stop 01/04/19 at 10:59 Morphine Sulfate (Morphine Sulfate) 1 mg PRN Q10MIN PRN IV SEVERE PAIN 7-10; Start 01/03/19 at 11:00; Stop 01/04/19 at 10:59 Ringer's Solution 1,000 ml @ 30 mls/hr Q24H IV ; Start 01/03/19 at 10:49; Stop 01/03/19 at 22:48 Lidocaine HCl (Xylocaine-Mpf 1% 2ml Vial) 2 ml PRN 1X PRN ID PRIOR TO IV START; Start 01/03/19 at 11:00; Stop 01/04/19 at 10:59 Hydromorphone HCl (Dilaudid) 0.5 mg PRN Q10MIN PRN IV SEV PAIN, Second choice; Start 01/03/19 at 11:00; Stop 01/04/19 at 10:59 Prochlorperazine Edisylate (Compazine) 5 mg PACU PRN PRN IV NAUSEA, MRX1; Start 01/03/19 at 11:00; Stop 01/04/19 at 10:59 Active Scripts Active Reported Augmentin 875-125 Tablet (Amoxicillin/Potassium Clav) 1 Each Tablet 1 Tab PO BID Protonix (Pantoprazole Sodium) 20 Mg Tablet.dr 40 Mg PO DAILY Lipitor (Atorvastatin Calcium) 20 Mg Tablet 20 Mg PO HS Aspirin 81 Mg Tab.chew 1 Tab PO DAILY Losartan Potassium 50 Mg Tablet 25 Mg PO DAILY Tums (Calcium Carbonate) 200 Mg Tab.chew 2 Tab PO TIDAC Breo Ellipta 100-25 Mcg Inh (Fluticasone/Vilanterol) 1 Each Aer.pow.ba 1 Puff IH DAILY PRN Ventolin Hfa Inhaler (Albuterol Sulfate) 18 Gm Hfa.aer.ad 2 Puff INH QID Ferrous Sulfate 325 Mg Tablet 325 Mg PO TID Docusate Sodium 100 Mg Capsule 100 Mg PO BID Humulin R U-500 Kwikpen (Insulin Regular, Human) 500 Unit/1 Ml Insuln.pen 10 Unit SQ TIDAC U-500 Voltaren (Diclofenac Sodium) 100 Gm Gel..gram. 100 Gm TP PRN QID PRN [place] 10-325 Tablet (Acetaminophen/Hydrocodone Bitart) 1 Each Tablet 1 Tab PO PRN Q6HRS PRN Levothyroxine Sodium 150 Mcg Tablet 150 Mcg PO DAILYAC Carvedilol (Carvedilol) 6.25 Mg Tablet 6.25 Mg PO BIDWMEALS Vitals/I & O Vital Sign - Last 24 Hours 01/02/19 01/02/19 01/02/19 01/02/19 13:07 14:53 14:54 15:00 Pulse 90 88 Resp 14 11 18 B/P (MAP) 117/33 (61) Pulse Ox 99 100 100 O2 Delivery Nasal Cannula Nasal Cannula Nasal Cannula Nasal Cannula O2 Flow Rate 2.0 6.0 6.0 2.0 01/02/19 01/02/19 01/02/19 01/02/19 15:11 15:15 15:30 15:45 Temp 97.5 97.5 Pulse 89 89 92 88 Resp 18 18 18 B/P (MAP) 117/63 (81) 120/37 (64) 126/36 (66) 124/47 (72) Pulse Ox 100 100 100 100 O2 Delivery Nasal Cannula Nasal Cannula Nasal Cannula Nasal Cannula O2 Flow Rate 6.0 2.0 2.0 2.0 01/02/19 01/02/19 01/02/19 01/02/19 15:49 15:51 16:53 16:54 Pulse 88 B/P (MAP) 124/47 O2 Delivery Nasal Cannula Nasal Cannula Room Air O2 Flow Rate 6.0 6.0 4.0 01/02/19 01/02/19 01/02/19 01/03/19 19:00 20:00 23:00 02:33 Temp 97.8 97.9 97.8 97.9 Pulse 91 90 Resp 18 18 B/P (MAP) 106/45 (65) 123/55 (77) Pulse Ox 97 96 O2 Delivery Nasal Cannula Nasal Cannula Nasal Cannula Nasal Cannula O2 Flow Rate 2.0 2.0 01/03/19 01/03/19 01/03/19 01/03/19 03:00 03:33 07:00 07:42 Temp 97.4 97.3 97.4 97.3 Pulse 88 86 Resp 18 17 B/P (MAP) 51/55 (54) 119/43 (68) Pulse Ox 98 99 100 O2 Delivery Nasal Cannula Nasal Cannula Nasal Cannula Nasal Cannula O2 Flow Rate 2.0 2.0 2.0 01/03/19 01/03/19 08:25 08:38 Pulse 86 B/P (MAP) 119/43 O2 Delivery Nasal Cannula O2 Flow Rate 2.0 Intake and Output 01/02/19 01/02/19 01/03/19 15:00 23:00 07:00 Intake Total 300 ml 150 ml Balance 300 ml 150 ml KIMBERLY LOPEZ MD Jan 03, 2019 11:17
[2019-01-03] MEDS: VANCOMYCIN PER PHARMACY MC PRN (11:41)
--- NOTE | 2019-01-03 11:51 | PDOC ---
SUBJECTIVE ROS Stable , seen on HD OBJECTIVE Vital Signs Vital Signs Date Time Temp Pulse Resp B/P (MAP) Pulse Ox O2 Delivery O2 Flow Rate FiO2 01/03/19 08:38 Nasal Cannula 2.0 01/03/19 08:25 86 119/43 01/03/19 07:42 100 01/03/19 07:00 97.3 17 97.3 I & 0 Intake and Output 01/03/19 07:00 Intake Total 450 ml Balance 450 ml Intake Oral 450 ml PHYSICAL EXAM Physical Exam General: NAD Cooperative HEENT: OM moist Lungs: Clear to auscultation, Non labored Heart: Regular rate, Normal S1, Normal S2 Abdomen: Normal bowel sounds, Soft Extremities: No edema Skin: No rashes, (rt breast lower outer and lower inner quadrant has post op sx wound with dressing on. + tenderness. ) Neuro: Grossly normal - no Weaver DIAGNOSIS/ASSESSMENT Assessment & Plan ESRD- MMF Dr. Giles , has been on HD for 3-4 years , No RRF No indication for HD today Access- Currently Lt Forearm AVF Lt thumb infection- On Abx per ID ,Vascular following Fistulogram findings consistent with steal phenomenon. s/p Arteriogram 01/02 Per vascular left arm fistula ligation with surgical debridement left thumb, possible amputation and third finger tip debridement today. 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 COMMENT/RELEVANT DATA Meds Current Medications Medications (Trade) Dose Ordered Sig/Becki Start Time Stop Time Status Last Admin Dose Admin Acetaminophen (Tylenol) 500 mg 1X PRN PRN 01/02/19 08:30 01/03/19 08:29 DC Acetaminophen/ Hydrocodone Bitart (Lortab 10) 1 tab PRN Q6HRS PRN 12/27/18 16:30 01/03/19 08:38 1 TAB Albumin Human 200 ml @ 200 mls/hr 1X PRN PRN 12/28/18 08:15 12/28/18 14:14 DC Albuterol Sulfate (Ventolin Neb Soln) 2.5 mg RTQID 12/27/18 20:00 01/03/19 07:40 2.5 MG Aspirin (Children'S Aspirin) 81 mg DAILY 12/28/18 09:00 01/03/19 08:25 81 MG Atorvastatin Calcium (Lipitor) 20 mg HS 12/27/18 21:00 01/02/19 22:35 20 MG Bisacodyl (Dulcolax Supp) 10 mg PRN DAILY PRN 12/27/18 16:30 Budesonide (Pulmicort) 0.5 mg RTBID 12/27/18 20:00 01/03/19 07:40 0.5 MG Calcium Carbonate/ Glycine (Tums) 500 mg PRN Q3HRS PRN 12/27/18 16:30 Carvedilol (Coreg) 3.125 mg BIDWMEALS 12/30/18 09:00 01/03/19 08:25 3.125 MG Cefepime HCl (Maxipime) 1 gm Q24H 12/27/18 18:00 01/02/19 17:16 1 GM Clonidine HCl (Catapres) 0.1 mg PRN Q1HR PRN 12/27/18 16:30 Diclofenac Sodium (Voltaren) 100 charan PRN QID PRN 12/27/18 16:30 Diphenhydramine HCl (Benadryl) 25 mg 1X PRN PRN 01/02/19 08:30 01/03/19 08:29 DC Docusate Sodium (Colace) 100 mg BID 12/27/18 21:00 01/03/19 08:25 100 MG Fentanyl Citrate (Fentanyl 2ml Vial) 25 mcg 1X ONCE 01/02/19 14:45 01/02/19 15:04 DC 01/02/19 14:53 25 MCG Ferrous Sulfate (Feosol) 325 mg TIDWMEALS 12/27/18 17:00 01/03/19 08:26 325 MG Heparin Sodium (Porcine) (Heparin Sodium) 3,000 unit 1X ONCE 12/29/18 10:30 12/29/18 10:32 DC 12/29/18 10:30 3,000 UNIT Heparin Sodium/ Sodium Chloride (HEPARIN for ARTERIAL LINE FLUSH) 1,000 unit 1X ONCE 01/02/19 14:45 01/02/19 15:04 DC 01/02/19 14:45 1,000 UNIT Hydromorphone HCl (Dilaudid) 0.5 mg PRN Q10MIN PRN 01/03/19 11:00 01/04/19 10:59 Info (CONTRAST GIVEN -- Rx MONITORING) 1 each PRN DAILY PRN 12/29/18 11:00 12/31/18 10:59 DC Info (PHARMACY MONITORING -- do not chart) 1 each PRN DAILY PRN 01/02/19 08:30 UNV Insulin Glargine (Lantus Syringe) 30 unit QHS 12/31/18 21:00 01/02/19 22:41 30 UNIT Insulin Human Lispro (HumaLOG) 10 units TIDWMEALS 01/02/19 07:45 01/03/19 08:37 10 UNITS Iodixanol (Visipaque 320) 100 ml 1X ONCE 01/02/19 14:45 01/02/19 15:04 DC 01/02/19 14:52 114 ML Lactobacillus Rhamnosus (Culturelle) 1 cap BID 12/28/18 21:00 01/03/19 08:25 1 CAP Levothyroxine Sodium (Synthroid) 150 mcg DAILYAC 12/28/18 07:30 01/03/19 08:25 150 MCG Lidocaine HCl (Buffered Lidocaine 1%) 2 ml 1X ONCE 01/02/19 14:45 01/02/19 15:04 DC 01/02/19 14:52 2 ML Lidocaine HCl (Xylocaine-Mpf 1% 2ml Vial) 2 ml PRN 1X PRN 01/03/19 11:00 01/04/19 10:59 Losartan Potassium (Cozaar) 25 mg DAILY 01/02/19 09:00 Magnesium Hydroxide (Milk Of Magnesia) 2,400 mg PRN Q12HR PRN 12/27/18 16:30 Midazolam HCl (Versed) 1 mg 1X ONCE 01/02/19 14:45 01/02/19 15:04 DC 01/02/19 14:52 1 MG Morphine Sulfate (Morphine Sulfate) 1 mg PRN Q10MIN PRN 01/03/19 11:00 01/04/19 10:59 Non-Formulary Medication (Albuterol Sulfate (Ventolin Hfa Inhaler)) 2 puff QID 12/27/18 17:00 UNV Non-Formulary Medication (Fluticasone/ Vilanterol (Breo Ellipta 100-25 Mcg Inh)) 1 puff DAILY PRN 12/27/18 16:30 UNV Ondansetron HCl (Zofran) 4 mg PRN Q6HRS PRN 01/03/19 11:00 01/04/19 10:59 Oxycodone HCl (Roxicodone) 5 mg PRN Q3HRS PRN 12/27/18 16:30 01/02/19 01:38 5 MG Pantoprazole Sodium (Protonix) 40 mg DAILYAC 12/28/18 07:30 01/03/19 08:26 40 MG Prochlorperazine Edisylate (Compazine) 5 mg PACU PRN PRN 01/03/19 11:00 01/04/19 10:59 Ringer's Solution 1,000 ml @ 30 mls/hr Q24H 01/03/19 10:49 01/03/19 22:48 Sodium Polystyrene Sulfonate (Kayexalate) 15 gm 1X ONCE 12/28/18 05:45 12/28/18 05:46 DC 12/28/18 05:57 15 GM Sodium Chloride 1,000 ml @ 400 mls/hr Q2H30M PRN 01/02/19 08:18 01/02/19 20:17 DC Vancomycin HCl (Vanco Per Pharmacy) 1 each PRN DAILY PRN 12/27/18 17:15 01/03/19 11:41 1 EACH Vancomycin HCl (Vancomycin Random Level) 1 each 1X ONCE 01/04/19 06:00 01/04/19 06:01 Vancomycin HCl 1.5 gm/Sodium Chloride 500 ml @ 250 mls/hr 1X ONCE 12/27/18 17:30 12/27/18 19:29 DC 12/27/18 18:02 250 MLS/HR Vancomycin HCl 500 mg/Sodium Chloride 100 ml @ 100 mls/hr QMWF 12/30/18 16:00 01/02/19 15:44 100 MLS/HR Zolpidem Tartrate (Ambien) 5 mg PRN QHS PRN 12/27/18 16:30 Lab Laboratory Tests Test 01/02/19 13:13 01/02/19 16:49 01/02/19 21:19 01/03/19 08:09 Glucose (Fingerstick) 114 mg/dL (70-99) 135 mg/dL (70-99) 228 mg/dL (70-99) 231 mg/dL (70-99) Test 01/03/19 10:45 White Blood Count 14.0 x10^3/uL (4.0-11.0) Red Blood Count 3.29 x10^6/uL (4.30-5.70) Hemoglobin 10.3 g/dL (13.0-17.5) Hematocrit 34.5 % (39.0-53.0) Mean Corpuscular Volume 105 fL (79-100) Mean Corpuscular Hemoglobin 31 pg (25-35) Mean Corpuscular Hemoglobin Concent 30 g/dL (31-37) Red Cell Distribution Width 15.5 % (11.5-14.5) Platelet Count 299 x10^3/uL (140-400) Neutrophils (%) (Auto) 86 % (31-73) Lymphocytes (%) (Auto) 5 % (24-48) Monocytes (%) (Auto) 7 % (0-9) Eosinophils (%) (Auto) 1 % (0-3) Basophils (%) (Auto) 1 % (0-3) Neutrophils # (Auto) 12.0 x10^3/uL (1.8-7.7) Lymphocytes # (Auto) 0.7 x10^3/uL (1.0-4.8) Monocytes # (Auto) 0.9 x10^3/uL (0.0-1.1) Eosinophils # (Auto) 0.2 x10^3/uL (0.0-0.7) Basophils # (Auto) 0.1 x10^3/uL (0.0-0.2) Results All relevant outside records, renal labs, imaging studies, telemetry/EKG's were reviewed. RANI ERICKSON MD Jan 03, 2019 11:51
--- NOTE | 2019-01-03 12:31 | NUR ---
SW following for discharge planning. Discussed with RN, pt having a procedure today, and could possibly have thumb amputation. RN does not anticipate pt will discharge home today. Plan is to discharge with [facility]. SW will continue to follow.
[2019-01-03] MEDS: LOSARTAN POTASSIUM 25 MG TABLET. PO SCH (13:19)
--- NOTE | 2019-01-03 15:22 | RAD ---
UPPER EXT ARTERIAL RIGHT INDICATION: Preoperative evaluation. COMPARISON: None available TECHNIQUE: Sonographic evaluation of the right upper extremity arterial system with Doppler FINDINGS: Biphasic waveform throughout the right upper extremity arterial system. Patent right subclavian, axillary, brachial, radial and ulnar arteries. No significant velocity elevation to suggest stenosis. IMPRESSION: 1. No arterial stenosis or occlusion within the right upper extremity. Electronically signed by: Luisito Lott DO (01/03/2019 3:19 PM) [facility]
[2019-01-03] MEDS: INSULIN LISPRO 100 UNIT/ML 3ML VIAL for OP,RR ONLY. SQ PRN ×3 (15:24→19:14)
--- NOTE | 2019-01-03 15:24 | RAD ---
VEIN MAP UPPER EXT RIGHT History: Preoperative evaluation. Comparison: None Technique: Sonographic examination grayscale evaluation of the right upper extremity venous system. Venous mapping. Findings: Right proximal upper arm cephalic vein approximately measures 2.7 mm, mid 2.6 mm and distal 2 mm. Right cephalic vein at the proximal forearm measures 1.9 mm, mid 1.4 mm and distal 1.1 mm. Right basilic vein proximal upper arm measures 5.8 mm, mid 4.9 mm and distal 2.5 mm. Right basilic vein at the proximal forearm measures 0.8 mm and distal forearm 1.2 mm. Impression: 1. Right upper extremity venous mapping, as described. Electronically signed by: Luisito Lott DO (01/03/2019 3:22 PM) [facility]
[2019-01-03] MEDS ORDERED: ceFAZolin SODIUM 1 GM in IV DEXTROSE 5% 50 ML IV ONE (15:45)
[2019-01-03] MEDS ORDERED: ceFAZolin 1GM IVPB FOR OMNI 1 GM/50 ML BAG IV ONE (16:00)
[2019-01-03] MEDS ORDERED: HEPARIN SODIUM 5,000 UNIT in IV NORMAL SALINE 500ML BAG 500 ML IRR ONE (16:17)
[2019-01-03] MEDS ORDERED: LIDOCAINE 1% 20 ML VIAL. ONE ×2 (16:17)
[2019-01-03] MEDS ORDERED: SURGICEL FIBRILLAR 1X2 EACH. ONE (16:17)
--- NOTE | 2019-01-03 17:58 | PDOC4 ---
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 Ayse Silver Surgery: left arm radiocephalic fistula ligation, left 1st finger tip amputation and debridement of the thumb, left 3rd finger debridement Blood loss: 10ml Anesthesia: general AYSE SILVER MD Jan 03, 2019 17:58
[2019-01-03] MEDS: MORPHINE SULFATE 2 MG/ML VIAL. IV PRN ×2 (18:00→18:10)
[2019-01-03] MEDS: CEFEPIME HCL IV Push 1 GM VIAL. IVP SCH (18:00)
[2019-01-03] MEDS ORDERED: MORPHINE SULFATE 2 MG/ML VIAL. ONE (18:04)
[2019-01-03] MEDS ORDERED: DEXAMETHASONE SOD PHOS 4 MG/ML VIAL ONE (18:07)
[2019-01-03] MEDS ORDERED: SEVOFLURANE 61 TO 120 MINUTES. IH ONE (18:07)
[2019-01-03] MEDS ORDERED: PROPOFOL 20 ML IV ONE (18:07)
[2019-01-03] MEDS ORDERED: ePHEDrine PF IN SALINE 50 MG/10 ML SYRINGE. IV ONE (18:07)
[2019-01-03] MEDS ORDERED: ONDANSETRON PF 4 MG/2 ML VIAL. ONE (18:07)
[2019-01-03] MEDS ORDERED: LIDOCAINE 2% PF 5 ML VIAL. ONE (18:07)
[2019-01-03] MEDS ORDERED: PHENYLEPHRINE in 0.9% NACL PF 1 MG/10 ML SYRINGE. IV ONE (18:07)
[2019-01-03] MEDS ORDERED: HYDROmorphone 2 MG/ML VIAL ONE (18:11)
[2019-01-03] MEDS: HYDROmorphone 2 MG/ML VIAL IV PRN ×3 (18:15→19:10)
[2019-01-03] MEDS ORDERED: PROCHLORPERAZINE 10 MG/2 ML VIAL. ONE (18:18)
--- NOTE | 2019-01-03 19:05 | OP ---
DATE OF SURGERY: 01/03/2019 SURGEON: Monica Silver M.D. ANESTHESIA USED: General anesthesia. PREOPERATIVE DIAGNOSES: Right arm arterial steal secondary to her radial artery to cephalic vein fistula causing ischemic changes in her hand including gangrene of the left thumb and an ulcerated gangrenous area on her left third finger. POSTOPERATIVE DIAGNOSES: Right arm arterial steal secondary to her radial artery to cephalic vein fistula causing ischemic changes in her hand including gangrene of the left thumb and an ulcerated gangrenous area on her left third finger. OPERATIONS PERFORMED: 1. Ligation of the left radial artery to cephalic vein fistula. 2. Left thumb distal tip amputation removing the distal phalanx bone with sharp excisional debridement of the thumb down to the base, removing necrotic skin and subcutaneous tissue. 3. Left third finger sharp excisional debridement of necrotic skin and subcutaneous tissue measuring approximately 1 cm in length x 0.5 cm in width x 0.5 cm in depth. ESTIMATED BLOOD LOSS: Approximately 10 mL. INDICATIONS FOR PROCEDURE: The patient is a 68-year-old female with chronic end-stage renal disease, on hemodialysis. She has a left arm radial artery to cephalic vein fistula, which is fairly aneurysmal in size and has been functional for several years. She presented to the hospital last week with gangrene of her left thumb and an ulcerated gangrenous area on her left third finger. She underwent evaluation with a fistulogram and an angiogram of the left arm. The angiogram showed patency of her main arterial vessels throughout her arm, this showed significant steal from her radial artery to the fistula poor circulation distally to this with a patent fistula, compression of the fistula showed a patent distal radial artery into her wrist and proximal hand. I felt her symptoms were secondary to steal. With her worsening gangrene in the thumb, I recommended urgent surgery today for ligation of her fistula and debridement of her thumb with possible amputation of the thumb and debridement of her left third finger. Informed consent was obtained from the patient and her family including loss of her fistula with the ligation and need for eventual catheter based dialysis for at least several months, possible nonhealing of her left thumb. If it does heal, it will need a skin graft to completely heal, possible need for amputation of the thumb in the future or further surgical debridement of her left third finger. DETAILS OF THE OPERATION: The patient was brought into the operating room and placed on table in supine position. She received general anesthesia monitored throughout the case by the anesthesiologist. Her left arm and hand were prepped and draped circumferentially by normal sterile fashion and draped. I wrap to her hand in a towel to keep it out of the field for her fistula ligation. Prior to starting, I did ultrasound her fistula and marked the area where the radial artery anastomosis was present. I made a longitudinal incision over the proximal wrist location where her cephalic vein fistula was located. I dissected down to the subcutaneous tissue down to her cephalic fistula. The fistula was very dilated. I dissected out circumferentially, proximally and distally within the wound. I used the Doppler over the radial artery at the distal wrist level. It was very monophasic in flow. I then clamped the fistula and she then had very strong biphasic to triphasic flow at her radial artery location, very good Doppler flow, which was significantly improved with clamping the fistula. I clamped the fistula proximally and distally and divided it completely. I suture ligated with 2 layer anastomosis, the proximal cephalic vein fistula with 5-0 Prolene suture in the distal segment which was transected with 5-0 Prolene running suture. We removed the clamps. There was no bleeding from the two anastomosis and the fistula was completely divided. I reconfirmed that there was very good Doppler flow at the distal radial artery at the wrist level and there was no further Doppler flow over the fistula tract. We irrigated the wound with copious amounts of antibiotic solution. I closed the subcutaneous tissue with 2 layers of 3-0 Vicryl suture and closed the skin with running 4-0 Vicryl subcuticular suture. Dermabond was left over the incision. We then unwrapped the hand. I performed sharp excisional debridement of the large area of eschar and gangrene over the thumb starting from the base of the thumb extending all the way to the nail bed. Under this tissue, there was healthy subcutaneous tissue with very good bleeding. At the nail bed, the nail lifted and removed and the underlying distal phalanx bone was very soft and necrotic. This bone I felt had osteomyelitis and infection within it and it was exposed in the open wound. I, therefore, performed the distal amputation of the thumb just at the level of the nail where the nail bed was. I transected the phalanx with a bone cutter and removed the tip of the thumb. I brought the bone back within the wound with a rongeur. She does have a very large open deficit of skin because of the large area of gangrene, but the tissue was healthy. I felt it was worth a chance to let this granulate and potentially treated with a skin graft. If it does not heal, we can do a primary amputation in the future. There was good amount of bleeding, which was controlled with electrocautery. I felt there was too much bleeding to place the wound VAC during surgery. Therefore, I irrigated with copious amounts of antibiotic solution. The third finger had a necrotic wound on the side of the finger adjacent to the nail bed. I sharply excised necrotic skin and subcutaneous tissue. There was no exposure of the bone and there was healthy tissue underneath this. Hemostasis was gained with electrocautery. We irrigated with antibiotic solution. Both finger wounds were covered with Aquacel dressing, soaked with saline wrapped with gauze and a Kerlix bandage and I wrapped the arm with Kerlix bandage and an Ernesto bandage for pressure on the fistula to help prevent phlebitis. She tolerated the surgery with no immediate complications. MONICA SILVER MD DR: RAUL/kris JOB#: [id number] / [id number]
[2019-01-03] MEDS: INSULIN GLARGINE SYRINGE. SQ SCH (21:00)
[2019-01-03] MEDS: ATORVASTATIN CALCIUM 20 MG TABLET PO SCH (21:00)
[2019-01-04] VITALS (14 sets, daily range): BP systolic 107–156; BP diastolic 41–70
[2019-01-04] MEDS: CEFEPIME HCL IV Push 1 GM VIAL. IVP SCH ×2 (03:15→21:12)
[2019-01-04] MEDS ORDERED: VANCOMYCIN RANDOM LEVEL. MC ONE (06:00)
[2019-01-04] MEDS: MORPHINE SULFATE 2 MG/ML VIAL. IV PRN ×2 (06:01→13:26)
[2019-01-04] MEDS: ALBUTEROL SULFATE 2.5 MG/3 ML NEBU. NEB SCH ×4 (07:16→19:42)
[2019-01-04] MEDS: BUDESONIDE 0.5 MG/2 ML NEBU. NEB SCH ×2 (07:16→19:40)
[2019-01-04] MEDS: VANCOMYCIN PER PHARMACY MC PRN (07:26)
--- NOTE | 2019-01-04 07:29 | NUR ---
Pharmacy Vancomycin Dosing Note S:Consulted to monitor and dose vancomycin started 12/27/18. O:TIM TREVINO is a 68 year old F with Cellulitis R/O OSTEOMYELITIS . Height: 5 feet, 5 inches Weight: 110.792565 kg [place] Body Weight: 57.00 Adjusted Body Weight: 78.20 Dosing Weight: Actual Other Antibiotics: Cefepime 1gm IVP q24hr LABS: Last BUN: 24 Last Creatinine: 5.9 Creatinine Clearance: HD M-W- mL/min Last WBC: 14.0 Last Procalcitonin: Tmax (past 24 hours): 97.9 Microbiology: 01/01 THUMB CX: I/O: 450/- Drug Levels: Last Random level: 17.1 on 01/04/19 at 0530 Last dose given 12/30/18 at 1802 Vancomycin Dosing: Loading Dose: 1500 mg x1 Dosing Weight: Actual Target Trough: 15-20 A: Based on: random level this morning P: 1. Continue Vancomycin 500 mg IV MWF POST HD SESSION 2. Follow up Random level as needed 3. Pharmacy will continue to monitor, follow and adjust therapy as needed. ANTHONY CORRALES Irineo, 01/04/19 1847
[2019-01-04] MEDS: LEVOTHYROXINE 150 MCG TABLET PO SCH (07:30)
[2019-01-04] MEDS: PANTOPRAZOLE 40 MG TABLET.DR. PO SCH (07:30)
[2019-01-04] MEDS: INSULIN LISPRO 300 UNITS/3 ML VIAL. SQ SCH ×3 (08:00→18:46)
[2019-01-04] MEDS: CARVEDILOL 3.125 MG TABLET. PO SCH ×2 (08:00→18:41)
[2019-01-04] MEDS: FERROUS SULFATE 325 MG TABLET. PO SCH ×3 (08:00→18:41)
--- NOTE | 2019-01-04 08:35 | PDOC ---
Infectious Disease Note Subjective Subjective Doing well but some finger pain Denies numbness/tingling Had some nausea earlier No F/C/soa/RASH ROS ROS o/w neg Vital Sign Vital Signs Vital Signs Date Time Temp Pulse Resp B/P (MAP) Pulse Ox O2 Delivery O2 Flow Rate FiO2 01/04/19 07:18 100 Nasal Cannula 2.0 01/04/19 07:00 98.4 100 16 108/54 (72) 98.4 Physical Exam PHYSICAL EXAM GENERAL: laying in bed, alert but appears a little medicated HEENT: Oral mucosa moist. No thrush NECK: Supple LUNGS: Clear bilaterally. HEART: S1, S2. ABDOMEN: Soft, obese. Bowel sounds present, nontender. EXTREMITIES: Edema present, chronic. DERMATOLOGIC: Left hand with dressing in place NEUROLOGIC: Alert, answers questions Labs Lab Laboratory Tests Test 01/03/19 10:45 01/03/19 11:53 01/03/19 15:09 01/03/19 16:36 White Blood Count 14.0 x10^3/uL (4.0-11.0) Red Blood Count 3.29 x10^6/uL (4.30-5.70) Hemoglobin 10.3 g/dL (13.0-17.5) Hematocrit 34.5 % (39.0-53.0) Mean Corpuscular Volume 105 fL (79-100) Mean Corpuscular Hemoglobin 31 pg (25-35) Mean Corpuscular Hemoglobin Concent 30 g/dL (31-37) Red Cell Distribution Width 15.5 % (11.5-14.5) Platelet Count 299 x10^3/uL (140-400) Neutrophils (%) (Auto) 86 % (31-73) Lymphocytes (%) (Auto) 5 % (24-48) Monocytes (%) (Auto) 7 % (0-9) Eosinophils (%) (Auto) 1 % (0-3) Basophils (%) (Auto) 1 % (0-3) Neutrophils # (Auto) 12.0 x10^3/uL (1.8-7.7) Lymphocytes # (Auto) 0.7 x10^3/uL (1.0-4.8) Monocytes # (Auto) 0.9 x10^3/uL (0.0-1.1) Eosinophils # (Auto) 0.2 x10^3/uL (0.0-0.7) Basophils # (Auto) 0.1 x10^3/uL (0.0-0.2) Glucose (Fingerstick) 267 mg/dL (70-99) 245 mg/dL (70-99) 226 mg/dL (70-99) Test 01/03/19 19:11 01/03/19 21:22 01/04/19 01:53 01/04/19 05:40 Glucose (Fingerstick) 180 mg/dL (70-99) 128 mg/dL (70-99) 122 mg/dL (70-99) Random Vancomycin Level 17.1 mcg/mL Test 01/04/19 07:49 Glucose (Fingerstick) 154 mg/dL (70-99) Micro AEROBIC RES 1 Final Enterococcus species Enterococcus faecalis 4+ AEROBIC RES 2 Final Mixed skin emre 4+ Performed at: [facility], [place], [place] [id number] [employer] Machine: BOBBY Mahajan MD, Phone: [phone] ANTIMICROBIAL SUSCEPTIBILITY Final Comment S = Susceptible; I = Intermediate; R = Resistant P = Positive; N = Negative MICS are expressed in micrograms per mL Antibiotic RSLT#1 RSLT#2 RSLT#3 RSLT#4 Penicillin S =1 Vancomycin S =1 Microbiology 12/27/18 Aerobic Culture - Final, Complete 12/27/18 Aerobic Culture Result 1 (MANPREET) - Final, Complete 12/27/18 Aerobic Culture Result 2 (MANPREET) - Final, Complete 12/27/18 Antimicrobic Susceptibility - Final, Complete 12/27/18 Gram Stain - Final, Complete 12/27/18 Gram Stain Result 1 (MANPREET) - Final, Complete 12/27/18 Gram Stain Result 2 (MANPREET) - Final, Complete 12/27/18 Gram Stain Result 3 (MANPREET) - Final, Complete Objective Assessment S/p left arm radiocephalic fistula ligation, left 1st finger tip amputation and debridement of the thumb, left 3rd finger debridement 01/03 Left thumb infection, C/S GPC,GPR - mixed skin emre & enterococcus spp 12/27 Left 3rd finger dry eschar Leukocytosis - stable in part reactive with steal. S/p Dexamethasone 01/03 Steal phenomenon End-stage renal disease, on hemodialysis.thru LUE fistula, w/u for steal phenomenon Diabetes mellitus, uncontrolled. History of breast abscess with MSSA, Klebsiella and E. coli 04/2018. PPM in place. Plan Plan of Care Post op wounds are open so will cont cefepime and vanco renal dosing for dialysis local wound care Await further vascular f/u f/u c.s and labs D/w family and nursing KINGSTON HERNANDEZ MD Jan 04, 2019 08:35
[2019-01-04] MEDS: ASPIRIN CHEWABLE 81 MG TABLET. PO SCH (09:00)
[2019-01-04] MEDS: LACTOBACILLUS RHAMNOSUS GG 1 CAPSULE. PO SCH ×2 (09:00→21:17)
[2019-01-04] MEDS: DOCUSATE SODIUM 100 MG CAPSULE. PO SCH ×2 (09:00→21:17)
[2019-01-04] MEDS: LOSARTAN POTASSIUM 25 MG TABLET. PO SCH (09:00)
--- NOTE | 2019-01-04 10:25 | PDOC ---
PROGRESS NOTES Chief Complaint Chief Complaint 1. Cellulitis left thumb, unroofed at Wound clinic, r.o osteomyelitis 2. ischemic left hand, STEAL PHENOMENON on imaging Tunneled hemodialysis catheter placement as described. This catheter demonstrates excellent manual flow rates and is suitable for use immediately. 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 Monica Silver Surgery: left arm radiocephalic fistula ligation, left 1st finger tip amputation and debridement of the thumb, left 3rd finger debridement Blood loss: 10ml Anesthesia: general 3. Left arm AV fistula 4. LEft third middle finger resolving cellulitis (reported self manipulation ) with eschar formation 5. ESRD MWF HD 6. AOCD 7. MAXIMILIAN< Obesity, hypothyroidism, HTN, CAD hx, lipids- chronic stable 8. LABILE BP 9. Indwelling ICD 10 LABILE DM 11. 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 37 min pt exam, chart review, > 50% of time with exam, chart review, pt care coordination History of Present Illness History of Present Illness LABILE BP and BS Adjustments made and seems plateaud today DTr at bedside I undressed the left thumb dressing, looks like skin there Dw wound care, vasc sx on case Arteriogram done, good AV fistula patent but dec flow radial artery Awaiting plans from vasc sx There was a mention amputation but that is not something definite yet WOund care and ID on board,.renal dosing abx as HD too SHe does have leukocytosis but no fevers and non toxic appearing PLAN; VAsc sx is brain storming proper treatment plan for her WOund care and ID is following (the left thumb was unroofed at the wound clinic then advised admissioN) HD per renal MEanwhile, i resumed ARB and dec insulin coverage Discussed extensively with pleasant dtrs at bedside time 31 mins in room SHe si BPCI, slated fo [facility] on dc Vitals Vitals Vital Signs Date Time Temp Pulse Resp B/P (MAP) Pulse Ox O2 Delivery O2 Flow Rate FiO2 01/04/19 07:18 100 Nasal Cannula 2.0 01/04/19 07:00 98.4 100 16 108/54 (72) 98.4 Physical Exam Physical Exam GENERAL: laying in bed, alert HEENT: Oral mucosa moist. No thrush NECK: Supple LUNGS: Clear bilaterally. HEART: S1, S2. ABDOMEN: Soft, obese. Bowel sounds present, nontender. EXTREMITIES: Edema present, chronic. DERMATOLOGIC: Left hand with dressing in place NEUROLOGIC: Alert, answers questions General: Alert, Oriented X3, Cooperative, Other Heart: Regular rate, Normal S1, Normal S2, No murmurs Lungs: Clear Abdomen: Normal bowel sounds, Soft, No tenderness Extremities: Other Skin: Other Labs LABS Procedure: Tunneled hemodialysis catheter placement Clinical Indication: Adult female requiring catheter hemodialysis Sedation: Conscious sedation was administered for 20 minutes. The patient was monitored by a qualified independent observer throughout the time of sedation. Please refer to the medical record for exact doses of medications utilized to achieve moderate sedation. Antibiotics: Antibiotic was administered intravenously within 1 hour of the procedure start time. Fluoro Time: 0.3 minutes. Images: 1 Contrast: None Sterility: All elements of maximal sterile barrier technique including the use of a cap, mask, sterile gown, sterile gloves, large sterile sheet, appropriate hand hygiene, and 2% chlorhexidine for cutaneous antisepsis (or acceptable alternative antiseptic per current guidelines) were followed for this procedure. Consent: The procedure was explained in its entirety to the patient or the patients designated pharmacy services representative by a member of the treatment team, including a discussion of the risks, benefits and commonly accepted alternatives to the procedure, as well as the expected consequences of no therapy whatsoever. Discussion of the risks included, but was not limited to, those that are most frequent and those that are rare but possibly severe or life-threatening, as well as the possibility of unforeseen complications. Technique and Findings: Following informed consent, the patient was prepped and draped in the usual sterile fashion. Ultrasound interrogation of the right neck revealed patency and compressibility of the right internal jugular vein. A 21-gauge micropuncture was then used to gain access to this vein under ultrasound guidance. A hard copy ultrasound image was recorded. The needle was exchanged over a wire for a 4 Arabic sheath which was used to guide an Amplatz wire into the IVC. The skin over the right anterior chest wall was copiously anesthetized with 1% Lidocaine plus Epinephrine and a small dermatotomy was made. A 23 severe palindrome tunneled hemodialysis catheter was then tunneled subcutaneously towards the neck dermatotomy and deployed through a large caliber peel-away sheath under fluoroscopic guidance such that the distal tip resided in the mid right atrium. Manual flow rates were assessed and found to be excellent. The catheter was then flushed, packed with Heparin, capped, and sutured to the skin. The neck dermatotomy was closed with Dermabond. Complications: No immediate Impression: 1. Tunneled hemodialysis catheter placement as described. This catheter demonstrates excellent manual flow rates and is suitable for use immediately. DICTATED and SIGNED BY: MELISSA LÓPEZ MD DATE: 01/04/19 125 Laboratory Tests Test 01/03/19 10:45 01/03/19 11:53 01/03/19 15:09 01/03/19 16:36 White Blood Count 14.0 x10^3/uL (4.0-11.0) Red Blood Count 3.29 x10^6/uL (4.30-5.70) Hemoglobin 10.3 g/dL (13.0-17.5) Hematocrit 34.5 % (39.0-53.0) Mean Corpuscular Volume 105 fL (79-100) Mean Corpuscular Hemoglobin 31 pg (25-35) Mean Corpuscular Hemoglobin Concent 30 g/dL (31-37) Red Cell Distribution Width 15.5 % (11.5-14.5) Platelet Count 299 x10^3/uL (140-400) Neutrophils (%) (Auto) 86 % (31-73) Lymphocytes (%) (Auto) 5 % (24-48) Monocytes (%) (Auto) 7 % (0-9) Eosinophils (%) (Auto) 1 % (0-3) Basophils (%) (Auto) 1 % (0-3) Neutrophils # (Auto) 12.0 x10^3/uL (1.8-7.7) Lymphocytes # (Auto) 0.7 x10^3/uL (1.0-4.8) Monocytes # (Auto) 0.9 x10^3/uL (0.0-1.1) Eosinophils # (Auto) 0.2 x10^3/uL (0.0-0.7) Basophils # (Auto) 0.1 x10^3/uL (0.0-0.2) Glucose (Fingerstick) 267 mg/dL (70-99) 245 mg/dL (70-99) 226 mg/dL (70-99) Test 01/03/19 19:11 01/03/19 21:22 01/04/19 01:53 01/04/19 05:40 Glucose (Fingerstick) 180 mg/dL (70-99) 128 mg/dL (70-99) 122 mg/dL (70-99) Random Vancomycin Level 17.1 mcg/mL Test 01/04/19 07:49 Glucose (Fingerstick) 154 mg/dL (70-99) Comment Review of Relevant I have reviewed the following items filippo (where applicable) has been applied. Labs Laboratory Tests Test 01/02/19 13:13 01/02/19 16:49 01/02/19 21:19 01/03/19 08:09 Glucose (Fingerstick) 114 mg/dL (70-99) 135 mg/dL (70-99) 228 mg/dL (70-99) 231 mg/dL (70-99) Test 01/03/19 10:45 01/03/19 11:53 01/03/19 15:09 01/03/19 16:36 White Blood Count 14.0 x10^3/uL (4.0-11.0) Red Blood Count 3.29 x10^6/uL (4.30-5.70) Hemoglobin 10.3 g/dL (13.0-17.5) Hematocrit 34.5 % (39.0-53.0) Mean Corpuscular Volume 105 fL (79-100) Mean Corpuscular Hemoglobin 31 pg (25-35) Mean Corpuscular Hemoglobin Concent 30 g/dL (31-37) Red Cell Distribution Width 15.5 % (11.5-14.5) Platelet Count 299 x10^3/uL (140-400) Neutrophils (%) (Auto) 86 % (31-73) Lymphocytes (%) (Auto) 5 % (24-48) Monocytes (%) (Auto) 7 % (0-9) Eosinophils (%) (Auto) 1 % (0-3) Basophils (%) (Auto) 1 % (0-3) Neutrophils # (Auto) 12.0 x10^3/uL (1.8-7.7) Lymphocytes # (Auto) 0.7 x10^3/uL (1.0-4.8) Monocytes # (Auto) 0.9 x10^3/uL (0.0-1.1) Eosinophils # (Auto) 0.2 x10^3/uL (0.0-0.7) Basophils # (Auto) 0.1 x10^3/uL (0.0-0.2) Glucose (Fingerstick) 267 mg/dL (70-99) 245 mg/dL (70-99) 226 mg/dL (70-99) Test 01/03/19 19:11 01/03/19 21:22 01/04/19 01:53 01/04/19 05:40 Glucose (Fingerstick) 180 mg/dL (70-99) 128 mg/dL (70-99) 122 mg/dL (70-99) Random Vancomycin Level 17.1 mcg/mL Test 01/04/19 07:49 Glucose (Fingerstick) 154 mg/dL (70-99) Laboratory Tests Test 01/03/19 10:45 01/03/19 11:53 01/03/19 15:09 01/03/19 16:36 White Blood Count 14.0 x10^3/uL (4.0-11.0) Red Blood Count 3.29 x10^6/uL (4.30-5.70) Hemoglobin 10.3 g/dL (13.0-17.5) Hematocrit 34.5 % (39.0-53.0) Mean Corpuscular Volume 105 fL (79-100) Mean Corpuscular Hemoglobin 31 pg (25-35) Mean Corpuscular Hemoglobin Concent 30 g/dL (31-37) Red Cell Distribution Width 15.5 % (11.5-14.5) Platelet Count 299 x10^3/uL (140-400) Neutrophils (%) (Auto) 86 % (31-73) Lymphocytes (%) (Auto) 5 % (24-48) Monocytes (%) (Auto) 7 % (0-9) Eosinophils (%) (Auto) 1 % (0-3) Basophils (%) (Auto) 1 % (0-3) Neutrophils # (Auto) 12.0 x10^3/uL (1.8-7.7) Lymphocytes # (Auto) 0.7 x10^3/uL (1.0-4.8) Monocytes # (Auto) 0.9 x10^3/uL (0.0-1.1) Eosinophils # (Auto) 0.2 x10^3/uL (0.0-0.7) Basophils # (Auto) 0.1 x10^3/uL (0.0-0.2) Glucose (Fingerstick) 267 mg/dL (70-99) 245 mg/dL (70-99) 226 mg/dL (70-99) Test 01/03/19 19:11 01/03/19 21:22 01/04/19 01:53 01/04/19 05:40 Glucose (Fingerstick) 180 mg/dL (70-99) 128 mg/dL (70-99) 122 mg/dL (70-99) Random Vancomycin Level 17.1 mcg/mL Test 01/04/19 07:49 Glucose (Fingerstick) 154 mg/dL (70-99) Microbiology 12/27/18 Aerobic Culture - Final, Complete 12/27/18 Aerobic Culture Result 1 (MANPREET) - Final, Complete 12/27/18 Aerobic Culture Result 2 (MANPREET) - Final, Complete 12/27/18 Antimicrobic Susceptibility - Final, Complete 12/27/18 Gram Stain - Final, Complete 12/27/18 Gram Stain Result 1 (MANPREET) - Final, Complete 12/27/18 Gram Stain Result 2 (MANPREET) - Final, Complete 12/27/18 Gram Stain Result 3 (MANPREET) - Final, Complete Medications Current Medications Ondansetron HCl (Zofran) 4 mg PRN Q6HRS PRN IV NAUSEA/VOMITING; Start 12/27/18 at 16:30 Calcium Carbonate/ Glycine (Tums) 500 mg PRN Q3HRS PRN PO UPSET STOMACH; Start 12/27/18 at 16:30 Zolpidem Tartrate (Ambien) 5 mg PRN QHS PRN PO INSOMNIA, MAY REPEAT IN 1HR; Start 12/27/18 at 16:30 Oxycodone HCl (Roxicodone) 5 mg PRN Q3HRS PRN PO BREAKTHROUGH PAIN Last administered on 01/02/19at 01:38; Start 12/27/18 at 16:30 Morphine Sulfate (Morphine Sulfate) 1 mg PRN Q1HR PRN IV PAIN; Start 12/27/18 at 16:30; Stop 12/27/18 at 16:39; Status DC Acetaminophen (Tylenol) 650 mg PRN Q6HRS PRN PO Headaches, Temp > 101.5F; Start 12/27/18 at 16:30 Docusate Sodium (Colace) 100 mg BID PO Last administered on 01/03/19 08:25; Start 12/27/18 at 21:00 Magnesium Hydroxide (Milk Of Magnesia) 2,400 mg PRN Q12HR PRN PO CONSTIPATION; Start 12/27/18 at 16:30 Bisacodyl (Dulcolax Supp) 10 mg PRN DAILY PRN [place] CONSTIPATION; Start 12/27/18 at 16:30 Ondansetron HCl (Zofran) 4 mg PRN Q6HRS PRN IVP NAUSEA/VOMITING; Start 12/27/18 at 16:30; Stop 12/28/18 at 11:31; Status DC Clonidine HCl (Catapres) 0.1 mg PRN Q1HR PRN PO HYPERTENSION; Start 12/27/18 at 16:30 Aspirin (Children'S Aspirin) 81 mg DAILY PO Last administered on 01/03/19at 08:25; Start 12/28/18 at 09:00 Atorvastatin Calcium (Lipitor) 20 mg HS PO Last administered on 01/02/19at 22:35; Start 12/27/18 at 21:00 Carvedilol (Coreg) 6.25 mg BIDWMEALS PO Last administered on 12/29/18at 17:39; Start 12/27/18 at 17:00; Stop 12/30/18 at 09:02; Status DC Diclofenac Sodium (Voltaren) 100 charan PRN QID PRN TP PAIN; Start 12/27/18 at 16:30 Ferrous Sulfate (Feosol) 325 mg TIDWMEALS PO Last administered on 01/03/19 08:26; Start 12/27/18 at 17:00 Acetaminophen/ Hydrocodone Bitart (Lortab 10/325) 1 tab PRN Q6HRS PRN PO MODERATE PAIN Last administered on 01/03/19at 08:38; Start 12/27/18 at 16:30 Levothyroxine Sodium (Synthroid) 150 mcg DAILYAC PO Last administered on 01/03/19 08:25; Start 12/28/18 at 07:30 Losartan Potassium (Cozaar) 25 mg DAILY PO ; Start 12/28/18 at 09:00; Stop 12/31/18 at 09:09; Status DC Non-Formulary Medication (Albuterol Sulfate (Ventolin Hfa Inhaler)) 2 puff QID INH ; Start 12/27/18 at 17:00; Status UNV Non-Formulary Medication (Fluticasone/ Vilanterol (Breo Ellipta 100-25 Mcg Inh)) 1 puff DAILY PRN IH daily; Start 12/27/18 at 16:30; Status UNV Insulin Human Lispro (HumaLOG) 10 units TIDWMEALS SQ Last administered on 12/30/18 20:05; Start 12/27/18 at 17:30; Stop 12/31/18 at 07:32; Status DC Pantoprazole Sodium (Protonix) 40 mg DAILYAC PO Last administered on 01/03/19 08:26; Start 12/28/18 at 07:30 Albuterol Sulfate (Ventolin Neb Soln) 2.5 mg RTQID NEB Last administered on 01/04/19 07:16; Start 12/27/18 at 20:00 Budesonide (Pulmicort) 0.5 mg RTBID NEB Last administered on 01/04/19 07:16; Start 12/27/18 at 20:00 Morphine Sulfate (Morphine Sulfate) 2 mg PRN Q2HR PRN IV PAIN Last administered on 01/04/19 06:01; Start 12/27/18 at 16:45 Cefepime HCl (Maxipime) 1 gm Q24H IVP Last administered on 01/04/19 03:15; Start 12/27/18 at 18:00 Vancomycin HCl (Vanco Per Pharmacy) 1 each PRN DAILY PRN MC SEE COMMENTS Last administered on 01/04/19 07:26; Start 12/27/18 at 17:15 Vancomycin HCl 1.5 gm/Sodium Chloride 500 ml @ 250 mls/hr 1X ONCE IV Last administered on 12/27/18at 18:02; Start 12/27/18 at 17:30; Stop 12/27/18 at 1 9:29; Status DC Vancomycin HCl (Vancomycin Random Level) 1 each 1X ONCE MC Last administered on 12/28/18at 06:00; Start 12/28/18 at 06:00; Stop 12/28/18 at 06:01; Status DC Sodium Polystyrene Sulfonate (Kayexalate) 15 gm 1X ONCE PO Last administered on 12/28/18at 05:57; Start 12/28/18 at 05:45; Stop 12/28/18 at 05:46; Status DC Sodium Chloride 1,000 ml @ 1,000 mls/hr Q1H PRN IV hypotension; Start 12/28/18 at 08:10; Stop 12/28/18 at 14:09; Status DC Albumin Human 200 ml @ 200 mls/hr 1X PRN PRN IV Hypotension; Start 12/28/18 at 08:15; Stop 12/28/18 at 14:14; Status DC Acetaminophen (Tylenol) 500 mg 1X PRN PRN PO MILD PAIN / TEMP; Start 12/28/18 at 08:15; Stop 12/29/18 at 08:14; Status DC Diphenhydramine HCl (Benadryl) 25 mg 1X PRN PRN IV ITCHING; Start 12/28/18 at 08:15; Stop 12/29/18 at 08:14; Status DC Diphenhydramine HCl (Benadryl) 25 mg 1X PRN PRN IV ITCHING; Start 12/28/18 at 08:15; Stop 12/29/18 at 08:14; Status DC Sodium Chloride 1,000 ml @ 400 mls/hr Q2H30M PRN IV PATENCY; Start 12/28/18 at 08:10; Stop 12/28/18 at 20:09; Status DC Info (PHARMACY MONITORING -- do not chart) 1 each PRN DAILY PRN MC SEE COMMENTS; Start 12/28/18 at 08:15; Stop 12/30/18 at 13:48; Status DC Vancomycin HCl 500 mg/Sodium Chloride 100 ml @ 100 mls/hr QMWF IV Last administered on 01/02/19at 15:44; Start 12/30/18 at 16:00 Lactobacillus Rhamnosus (Culturelle) 1 cap BID PO Last administered on 01/03/19at 08:25; Start 12/28/18 at 21:00 Iodixanol (Visipaque 320) 100 ml STK-MED ONCE .ROUTE ; Start 12/29/18 at 09:27; Stop 12/29/18 at 09:27; Status DC Lidocaine HCl (Buffered Lidocaine 1%) 3 ml STK-MED ONCE .ROUTE ; Start 12/29/18 at 09:27; Stop 12/29/18 at 09:27; Status DC Heparin Sodium/ Sodium Chloride 500 ml @ As Directed STK-MED ONCE .ROUTE ; Start 12/29/18 at 09:27; Stop 12/29/18 at 09:27; Status DC Midazolam HCl (Versed) 2 mg STK-MED ONCE .ROUTE ; Start 12/29/18 at 09:29; Stop 12/29/18 at 09:29; Status DC Fentanyl Citrate (Fentanyl 2ml Vial) 100 mcg STK-MED ONCE .ROUTE ; Start 12/29/18 at 09:29; Stop 12/29/18 at 09:29; Status DC Heparin Sodium (Porcine) (Heparin Sodium) 10,000 unit STK-MED ONCE .ROUTE ; Start 12/29/18 at 09:29; Stop 12/29/18 at 09:30; Status DC Heparin Sodium/ Sodium Chloride (HEPARIN for ARTERIAL LINE FLUSH) 1,000 unit 1X ONCE IART Last administered on 12/29/18at 10:00; Start 12/29/18 at 10:00; Stop 12/29/18 at 10:01; Status DC Lidocaine HCl (Buffered Lidocaine 1%) 3 ml 1X ONCE IJ Last administered on 12/29/18at 10:00; Start 12/29/18 at 10:00; Stop 12/29/18 at 10:01; Status DC Midazolam HCl (Versed) 2 mg 1X ONCE IV Last administered on 12/29/18at 10:00; Start 12/29/18 at 10:00; Stop 12/29/18 at 10:01; Status DC Fentanyl Citrate (Fentanyl 2ml Vial) 100 mcg 1X ONCE IV Last administered on 12/29/18at 10:00; Start 12/29/18 at 10:00; Stop 12/29/18 at 10:01; Status DC Iodixanol (Visipaque 320) 100 ml 1X ONCE IART Last administered on 12/29/18at 10:00; Start 12/29/18 at 10:00; Stop 12/29/18 at 10:01; Status DC Heparin Sodium (Porcine) (Heparin Sodium) 3,000 unit 1X ONCE IV Last administered on 12/29/18at 10:30; Start 12/29/18 at 10:30; Stop 12/29/18 at 10:32; Status DC Iodixanol (Visipaque 320) 50 ml STK-MED ONCE .ROUTE ; Start 12/29/18 at 10:43; Stop 12/29/18 at 10:43; Status DC Iodixanol (Visipaque 320) 50 ml 1X ONCE IART Last administered on 12/29/18at 10:45; Start 12/29/18 at 10:45; Stop 12/29/18 at 10:46; Status DC Info (CONTRAST GIVEN -- Rx MONITORING) 1 each PRN DAILY PRN MC SEE COMMENTS; Start 12/29/18 at 11:00; Stop 12/31/18 at 10:59; Status DC Carvedilol (Coreg) 3.125 mg BIDWMEALS PO Last administered on 01/03/19at 08:25; Start 12/30/18 at 09:00 Insulin Glargine (Lantus Syringe) 20 unit QHS SQ Last administered on 12/30/18at 21:00; Start 12/30/18 at 21:00; Stop 12/31/18 at 07:32; Status DC Insulin Glargine (Lantus Syringe) 10 unit ONCE ONCE SQ Last administered on 12/30/18at 09:48; Start 12/30/18 at 10:00; Stop 12/30/18 at 10:01; Status DC Sodium Chloride 1,000 ml @ 1,000 mls/hr Q1H PRN IV hypotension; Start 12/30/18 at 12:21; Stop 12/30/18 at 18:20; Status DC Diphenhydramine HCl (Benadryl) 25 mg 1X PRN PRN IV ITCHING; Start 12/30/18 at 12:30; Stop 12/31/18 at 12:29; Status DC Diphenhydramine HCl (Benadryl) 25 mg 1X PRN PRN IV ITCHING; Start 12/30/18 at 12:30; Stop 12/31/18 at 12:29; Status DC Sodium Chloride 1,000 ml @ 400 mls/hr Q2H30M PRN IV PATENCY; Start 12/30/18 at 12:21; Stop 12/31/18 at 00:20; Status DC Info (PHARMACY MONITORING -- do not chart) 1 each PRN DAILY PRN MC SEE COMMENTS; Start 12/30/18 at 12:30 Insulin Human Lispro (HumaLOG) 15 units 1X ONCE SQ Last administered on 12/30/18at 22:59; Start 12/30/18 at 23:00; Stop 12/30/18 at 23:01; Status DC Insulin Glargine (Lantus Syringe) 30 unit QHS SQ Last administered on 01/02/19 at 22:41; Start 12/31/18 at 21:00 Insulin Human Lispro (HumaLOG) 15 units TIDWMEALS SQ Last administered on 01/01/19at 08:22; Start 12/31/18 at 08:00; Stop 01/01/19 at 08:35; Status DC Insulin Human Lispro (HumaLOG) 8 units TIDWMEALS SQ Last administered on 01/01/19at 16:52; Start 01/01/19 at 12:00; Stop 01/02/19 at 07:40; Status DC Insulin Human Lispro (HumaLOG) 12 units 1X ONCE SQ Last administered on 01/01/19at 21:14; Start 01/01/19 at 21:00; Stop 01/01/19 at 21:01; Status DC Losartan Potassium (Cozaar) 25 mg DAILY PO ; Start 01/02/19 at 09:00 Insulin Human Lispro (HumaLOG) 10 units TIDWMEALS SQ Last administered on 01/03/19at 08:37; Start 01/02/19 at 07:45 Sodium Chloride 1,000 ml @ 1,000 mls/hr Q1H PRN IV hypotension; Start 01/02/19 at 08:18; Stop 01/02/19 at 14:17; Status DC Acetaminophen (Tylenol) 500 mg 1X PRN PRN PO MILD PAIN / TEMP; Start 01/02/19 at 08:30; Stop 01/03/19 at 08:29; Status DC Diphenhydramine HCl (Benadryl) 25 mg 1X PRN PRN IV ITCHING; Start 01/02/19 at 08:30; Stop 01/03/19 at 08:29; Status DC Diphenhydramine HCl (Benadryl) 25 mg 1X PRN PRN IV ITCHING; Start 01/02/19 at 08:30; Stop 01/03/19 at 08:29; Status DC Sodium Chloride 1,000 ml @ 400 mls/hr Q2H30M PRN IV PATENCY; Start 01/02/19 at 08:18; Stop 01/02/19 at 20:17; Status DC Info (PHARMACY MONITORING -- do not chart) 1 each PRN DAILY PRN MC SEE COMMENTS; Start 01/02/19 at 08:30; Status UNV Vancomycin HCl (Vancomycin Random Level) 1 each 1X ONCE MC ; Start 01/04/19 at 06:00; Stop 01/04/19 at 06:01; Status DC Iodixanol (Visipaque 320) 100 ml STK-MED ONCE .ROUTE ; Start 01/02/19 at 13:20; Stop 01/02/19 at 13:20; Status DC Lidocaine HCl (Buffered Lidocaine 1%) 3 ml STK-MED ONCE .ROUTE ; Start 01/02/19 at 13:20; Stop 01/02/19 at 13:21; Status DC Heparin Sodium/ Sodium Chloride 1,000 ml @ As Directed STK-MED ONCE .ROUTE ; Start 01/02/19 at 13:21; Stop 01/02/19 at 13:21; Status DC Midazolam HCl (Versed) 2 mg STK-MED ONCE .ROUTE ; Start 01/02/19 at 13:52; Stop 01/02/19 at 13:53; Status DC Fentanyl Citrate (Fentanyl 2ml Vial) 100 mcg STK-MED ONCE .ROUTE ; Start 01/02/19 at 13:52; Stop 01/02/19 at 13:53; Status DC Iodixanol (Visipaque 320) 100 ml STK-MED ONCE .ROUTE ; Start 01/02/19 at 14:22; Stop 01/02/19 at 14:22; Status DC Heparin Sodium/ Sodium Chloride (HEPARIN for ARTERIAL LINE FLUSH) 1,000 unit 1X ONCE IART Last administered on 01/02/19at 14:51; Start 01/02/19 at 14:45; Stop 01/02/19 at 15:04; Status DC Heparin Sodium/ Sodium Chloride (HEPARIN for ARTERIAL LINE FLUSH) 1,000 unit 1X ONCE IART Last administered on 01/02/19at 14:45; Start 01/02/19 at 14:45; Stop 01/02/19 at 15:04; Status DC Lidocaine HCl (Buffered Lidocaine 1%) 2 ml 1X ONCE IJ Last administered on 01/02/19at 14:52; Start 01/02/19 at 14:45; Stop 01/02/19 at 15:04; Status DC Midazolam HCl (Versed) 1 mg 1X ONCE IV Last administered on 01/02/19at 14:52; Start 01/02/19 at 14:45; Stop 01/02/19 at 15:04; Status DC Fentanyl Citrate (Fentanyl 2ml Vial) 25 mcg 1X ONCE IV Last administered on 01/02/19at 14:53; Start 01/02/19 at 14:45; Stop 01/02/19 at 15:04; Status DC Iodixanol (Visipaque 320) 100 ml 1X ONCE IART Last administered on 01/02/19at 14:52; Start 01/02/19 at 14:45; Stop 01/02/19 at 15:04; Status DC Ondansetron HCl (Zofran) 4 mg PRN Q6HRS PRN IV NAUSEA/VOMITING; Start 01/03/19 at 11:00; Stop 01/04/19 at 10:59 Morphine Sulfate (Morphine Sulfate) 1 mg PRN Q10MIN PRN IV SEVERE PAIN 7-10; Start 01/03/19 at 11:00; Stop 01/04/19 at 10:59 Ringer's Solution 1,000 ml @ 30 mls/hr Q24H IV ; Start 01/03/19 at 10:49; Stop 01/03/19 at 22:48; Status DC Lidocaine HCl (Xylocaine-Mpf 1% 2ml Vial) 2 ml PRN 1X PRN ID PRIOR TO IV START; Start 01/03/19 at 11:00; Stop 01/04/19 at 10:59 Hydromorphone HCl (Dilaudid) 0.5 mg PRN Q10MIN PRN IV SEV PAIN, Second choice Last administered on 01/03/19at 19:10; Start 01/03/19 at 11:00; Stop 01/04/19 at 10:59 Prochlorperazine Edisylate (Compazine) 5 mg PACU PRN PRN IV NAUSEA, MRX1 Last administered on 01/03/19at 18:30; Start 01/03/19 at 11:00; Stop 01/04/19 at 10:59 Insulin Human Lispro (HumaLOG VIAL for OP,RR ONLY) 0-10 units PRN Q1HR PRN SQ PER PROTOCOL Last administered on 01/03/19at 19:14; Start 01/03/19 at 15:15; Stop 01/04/19 at 15:14 Cefazolin Sodium 1 gm/Dextrose 50 ml @ 100 mls/hr 1X PREOP ONCE IV ; Start 01/03/19 at 15:45; Stop 01/03/19 at 16:14; Status UNV Cefazolin Sodium 50 ml @ 100 mls/hr 1X ONCE IV ; Start 01/03/19 at 16:00; Stop 01/03/19 at 16:29; Status DC Heparin Sodium (Porcine) 5000 unit/Sodium Chloride 505 ml @ 505 mls/hr 1X ONCE IRR ; Start 01/03/19 at 16:17; Stop 01/03/19 at 17:16; Status DC Lidocaine HCl 20 ml STK-MED ONCE .ROUTE ; Start 01/03/19 at 16:17; Stop 01/03/19 at 16:17; Status DC Cellulose (Surgicel Fibrillar 1x2) 1 each STK-MED ONCE .ROUTE ; Start 01/03/19 at 16:17; Stop 01/03/19 at 16:17; Status DC Cefazolin Sodium 1 gm/Sodium Chloride 500 ml @ 500 mls/hr 1X ONCE IRR Last administered on 01/03/19at 17:05; Start 01/03/19 at 16:18; Stop 01/03/19 at 17:17; Status DC Lidocaine HCl 20 ml STK-MED ONCE .ROUTE ; Start 01/03/19 at 16:17; Stop 01/03/19 at 16:18; Status DC Morphine Sulfate (Morphine Sulfate) 2 mg STK-MED ONCE .ROUTE ; Start 01/03/19 at 18:04; Stop 01/03/19 at 18:05; Status DC Ondansetron HCl (Zofran) 4 mg STK-MED ONCE .ROUTE ; Start 01/03/19 at 18:07; Stop 01/03/19 at 18:07; Status DC Propofol 20 ml @ As Directed STK-MED ONCE IV ; Start 01/03/19 at 18:07; Stop 01/03/19 at 18:07; Status DC Lidocaine HCl (Lidocaine Pf 2% Vial) 5 ml STK-MED ONCE .ROUTE ; Start 01/03/19 at 18:07; Stop 01/03/19 at 18:07; Status DC Phenylephrine HCl (PHENYLEPHRINE in 0.9% NACL PF) 1 mg STK-MED ONCE IV ; Start 01/03/19 at 18:07; Stop 01/03/19 at 18:07; Status DC Dexamethasone Sodium Phosphate (Decadron) 4 mg STK-MED ONCE .ROUTE ; Start 01/03/19 at 18:07; Stop 01/03/19 at 18:07; Status DC Ephedrine Sulfate (ePHEDrine PF IN SALINE SYRINGE) 50 mg STK-MED ONCE IV ; Start 01/03/19 at 18:07; Stop 01/03/19 at 18:07; Status DC Sevoflurane (Ultane) 60 ml STK-MED ONCE IH ; Start 01/03/19 at 18:07; Stop 1 at 18:07; Status DC Hydromorphone HCl (Dilaudid) 2 mg STK-MED ONCE .ROUTE ; Start 01/03/19 at 18:11; Stop 01/03/19 at 18:11; Status DC Prochlorperazine Edisylate (Compazine) 10 mg STK-MED ONCE .ROUTE ; Start 01/03/19 at 18:18; Stop 01/03/19 at 18:18; Status DC Cefazolin Sodium (Ancef 1gm Ivpb For Omni) 1 gm STK-MED ONCE IV ; Start 01/03/19 at 16:00; Stop 01/04/19 at 08:42; Status [place] Active Scripts Active Reported Augmentin 875-125 Tablet (Amoxicillin/Potassium Clav) 1 Each Tablet 1 Tab PO BID Protonix (Pantoprazole Sodium) 20 Mg Tablet.dr 40 Mg PO DAILY Lipitor (Atorvastatin Calcium) 20 Mg Tablet 20 Mg PO HS Aspirin 81 Mg Tab.chew 1 Tab PO DAILY Losartan Potassium 50 Mg Tablet 25 Mg PO DAILY Tums (Calcium Carbonate) 200 Mg Tab.chew 2 Tab PO TIDAC Breo Ellipta 100-25 Mcg Inh (Fluticasone/Vilanterol) 1 Each Aer.pow.ba 1 Puff IH DAILY PRN Ventolin Hfa Inhaler (Albuterol Sulfate) 18 Gm Hfa.aer.ad 2 Puff INH QID Ferrous Sulfate 325 Mg Tablet 325 Mg PO TID Docusate Sodium 100 Mg Capsule 100 Mg PO BID Humulin R U-500 Kwikpen (Insulin Regular, Human) 500 Unit/1 Ml Insuln.pen 10 Unit SQ TIDAC U-500 Voltaren (Diclofenac Sodium) 100 Gm Gel..gram. 100 Gm TP PRN QID PRN [place] 10-325 Tablet (Acetaminophen/Hydrocodone Bitart) 1 Each Tablet 1 Tab PO PRN Q6HRS PRN Levothyroxine Sodium 150 Mcg Tablet 150 Mcg PO DAILYAC Carvedilol (Carvedilol) 6.25 Mg Tablet 6.25 Mg PO BIDWMEALS Vitals/I & O Vital Sign - Last 24 Hours 01/03/19 01/03/19 01/03/19 01/03/19 11:00 12:13 14:47 17:56 Temp 97.4 97.4 97.4 97.4 Pulse 85 84 Resp 17 18 B/P (MAP) 107/44 (65) 121/57 Pulse Ox 100 100 100 O2 Delivery Nasal Cannula Nasal Cannula Nasal Cannula Mask O2 Flow Rate 2.0 2.0 2.0 10 01/03/19 01/03/19 01/03/19 01/03/19 17:56 18:00 18:10 18:15 Temp 97.3 97.3 Pulse 86 Resp 18 18 18 18 B/P (MAP) 136/80 Pulse Ox 100 100 100 100 O2 Delivery Simple Mask Simple Mask Simple Mask Simple Mask O2 Flow Rate 10 10.0 10.0 10.0 01/03/19 01/03/19 01/03/19 01/03/19 18:25 18:25 18:40 19:10 Temp 97.3 97.3 97.3 97.3 Pulse 84 82 Resp 18 18 18 17 B/P (MAP) 116/63 110/61 Pulse Ox 100 100 100 100 O2 Delivery Simple Mask Simple Mask Simple Mask Simple Mask O2 Flow Rate 10.0 10.0 10.0 5.0 01/03/19 01/03/19 01/03/19 01/03/19 19:25 20:00 20:05 20:15 Temp 97.3 97.8 97.3 97.8 Pulse 82 84 83 Resp 16 17 B/P (MAP) 99/58 121/62 (81) 104/63 (77) Pulse Ox 100 98 O2 Delivery Nasal Cannula Nasal Cannula Nasal Cannula O2 Flow Rate 4 2.0 3.0 01/03/19 01/03/19 01/03/19 01/03/19 20:30 20:45 21:00 21:30 Pulse 82 82 84 85 B/P (MAP) 101/61 (74) 101/61 (74) 113/55 (74) 117/66 (83) 01/03/19 01/03/19 01/04/19 01/04/19 22:00 23:00 00:00 03:00 Temp 97.9 97.9 Pulse 88 84 83 79 Resp 17 B/P (MAP) 131/74 (93) 123/71 (88) 121/62 (81) 123/70 (87) Pulse Ox 96 O2 Delivery Nasal Cannula O2 Flow Rate 2.0 01/04/19 01/04/19 01/04/19 06:01 07:00 07:18 Temp 98.4 98.4 Pulse 100 Resp 16 B/P (MAP) 108/54 (72) Pulse Ox 96 100 O2 Delivery Nasal Cannula Nasal Cannula Nasal Cannula O2 Flow Rate 3.0 3.0 2.0 Intake and Output 01/03/19 01/03/19 01/04/19 15:00 23:00 07:00 Intake Total 0 ml 0 ml Output Total 0 ml Balance 0 ml 0 ml RAHEEL REARDON MD Jan 04, 2019 10:25
[2019-01-04] MEDS ORDERED: LIDOCAINE 1%/EPI 1:100,000 20 ML VIAL. ONE (10:53)
--- NOTE | 2019-01-04 11:59 | NUR ---
SW following for discharge planning. Discussed with RN, pt having cath procedure today. Plan is to discharge home when ready with [facility]. SW will continue to follow.
[2019-01-04] MEDS ORDERED: MIDAZOLAM HCL/PF 2 MG/2 ML VIAL. IV ONE (12:00)
[2019-01-04] MEDS ORDERED: fentaNYL PF VIAL 100 MCG/2 ML VIAL IV ONE (12:00)
[2019-01-04] MEDS ORDERED: LIDOCAINE 1%/EPI 1:100,000 20 ML VIAL. SQ ONE (12:00)
[2019-01-04] MEDS ORDERED: MIDAZOLAM HCL/PF 2 MG/2 ML VIAL. ONE (12:05)
[2019-01-04] MEDS ORDERED: fentaNYL PF VIAL 100 MCG/2 ML VIAL ONE (12:05)
--- NOTE | 2019-01-04 12:38 | PDOC ---
BRIEF OPERATIVE NOTE Pre-Op Diagnosis CRF Post-Op Diagnosis same Procedure Performed Tunnelled HD catheter Surgeon Marcelle Anesthesia Type: Conscious Sedation Findings 23 cm Palindrome with excellent manual flows, suitable for use Complications No immediate MELISSA LÓPEZ MD Jan 04, 2019 12:38
--- NOTE | 2019-01-04 12:38 | PDOC ---
MODERATE SEDATION ASSESSMENT RISKS/ALTERNATIVES Risks/Alternatives Risks and alternatives of this type of sedation and procedure discussed with: RISK/ALTERNATIVES: Patient H & P ON CHART H & P H & P on chart and reviewed for co-morbid conditions and appropriate labs. H&P ON CHART: Yes STATUS PREG STATUS ASSESSED: Yes MEDS/ALLERGIES REVIEWED Meds/Allergies Reviewed Medications and Allergies including time and route of recently administered narcotics and sedatives. MEDS/ALLERGIES REVIEWED: Yes ASA RATING ASA RATING: II AIRWAY ASSESSMENT Airway Assessment Airway patency, oral function limitations, presence of caps, crowns, dentures, partials, and ability to extend neck assessed. AIRWAY ASSESSMENT: Yes MALLAMPATI SCORE MALLAMPATI SCORE: II PRE-SEDATION ASSESSMENT PRE-SEDATION ASSESSMENT: Yes MELISSA LÓPEZ MD Jan 04, 2019 12:38
--- NOTE | 2019-01-04 12:53 | RAD ---
Procedure: Tunneled hemodialysis catheter placement Clinical Indication: Adult female requiring catheter hemodialysis Sedation: Conscious sedation was administered for 20 minutes. The patient was monitored by a qualified independent observer throughout the time of sedation. Please refer to the medical record for exact doses of medications utilized to achieve moderate sedation. Antibiotics: Antibiotic was administered intravenously within 1 hour of the procedure start time. Fluoro Time: 0.3 minutes. Images: 1 Contrast: None Sterility: All elements of maximal sterile barrier technique including the use of a cap, mask, sterile gown, sterile gloves, large sterile sheet, appropriate hand hygiene, and 2% chlorhexidine for cutaneous antisepsis (or acceptable alternative antiseptic per current guidelines) were followed for this procedure. Consent: The procedure was explained in its entirety to the patient or the patients designated aircraft sales representative by a member of the treatment team, including a discussion of the risks, benefits and commonly accepted alternatives to the procedure, as well as the expected consequences of no therapy whatsoever. Discussion of the risks included, but was not limited to, those that are most frequent and those that are rare but possibly severe or life-threatening, as well as the possibility of unforeseen complications. Technique and Findings: Following informed consent, the patient was prepped and draped in the usual sterile fashion. Ultrasound interrogation of the right neck revealed patency and compressibility of the right internal jugular vein. A 21-gauge micropuncture was then used to gain access to this vein under ultrasound guidance. A hard copy ultrasound image was recorded. The needle was exchanged over a wire for a 4 [place] sheath which was used to guide an Amplatz wire into the IVC. The skin over the right anterior chest wall was copiously anesthetized with 1% Lidocaine plus Epinephrine and a small dermatotomy was made. A 23 severe palindrome tunneled hemodialysis catheter was then tunneled subcutaneously towards the neck dermatotomy and deployed through a large caliber peel-away sheath under fluoroscopic guidance such that the distal tip resided in the mid right atrium. Manual flow rates were assessed and found to be excellent. The catheter was then flushed, packed with Heparin, capped, and sutured to the skin. The neck dermatotomy was closed with Dermabond. Complications: No immediate Impression: 1. Tunneled hemodialysis catheter placement as described. This catheter demonstrates excellent manual flow rates and is suitable for use immediately.
--- NOTE | 2019-01-04 13:33 | NUR ---
Wound Care: Follow up for management of wounds to Left hand. I&D of L 3rd finger, and partial amputation of L thumb 01/03/19. Post op pictures and measurements taken, placed in chart. 3rd finger wound bed blackened d/t OR cautery. Applied HFB with hydrogel, 4x4 and tegaderm. one piece of black foam applied to L thumb amputation site, bridged to anterior LFA/wrist area. Kathi CABRERA administered morphine for pain control. Good seal achieved on dressing. Will follow up for vac change on Wednesday.
--- NOTE | 2019-01-04 13:42 | PDOC ---
Provider Note Provider Note Vascular Patient in procedure. Discussed plan of care with [facility]. Wound vac placement today. Continue antibiotics. DOROTHY JOSEPH CIVIL ENGINEER HELPER Jan 04, 2019 13:42
[2019-01-04] MEDS ORDERED: HYDROmorphone 2 MG/ML VIAL IV PRN (14:00)
[2019-01-04] MEDS ORDERED: IV NORMAL SALINE 1000ML BAG 1,000 ML IV PRN ×2 (14:14)
[2019-01-04] MEDS ORDERED: DIALYSIS PATIENT. MC PRN (14:15)
[2019-01-04] MEDS ORDERED: diphenhydrAMINE 50 MG/ML VIAL IV PRN ×2 (14:15)
--- NOTE | 2019-01-04 14:30 | PDOC ---
SUBJECTIVE ROS Stable , seen on HD OBJECTIVE Vital Signs Vital Signs Date Time Temp Pulse Resp B/P (MAP) Pulse Ox O2 Delivery O2 Flow Rate FiO2 01/04/19 13:26 Nasal Cannula 3.0 01/04/19 12:40 110 19 93 01/04/19 11:00 98.8 113/48 (69) 98.8 I & 0 Intake and Output 01/04/19 07:00 Intake Total 0 ml Output Total 0 ml Balance 0 ml Intake Oral 0 ml Output Urine Total 0 ml # Voids 1 PHYSICAL EXAM Physical Exam General: NAD Cooperative HEENT: OM moist Lungs: Clear to auscultation, Non labored Heart: Regular rate, Normal S1, Normal S2 Abdomen: Normal bowel sounds, Soft Extremities: No edema Skin: No rashes, (rt breast lower outer and lower inner quadrant has post op sx wound with dressing on. + tenderness. ) Neuro: Grossly normal - no Weaver DIAGNOSIS/ASSESSMENT Assessment & Plan ESRD- MMF Dr. Giles , has been on HD for 3-4 years , No RRF Seen on HD t, tolerating well, continue as ordered , Eddie Cárdenas Access- Tunneled HDC placed on 12/25 Lt Forearm AVF ligated on 01/03 2/2 steal syndrome Lt thumb infection- On Abx per ID ,Vascular following Fistulogram findings consistent with steal phenomenon. 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 COMMENT/RELEVANT DATA Meds Current Medications Medications (Trade) Dose Ordered Sig/Becki Start Time Stop Time Status Last Admin Dose Admin Acetaminophen (Tylenol) 500 mg 1X PRN PRN 01/02/19 08:30 01/03/19 08:29 DC Acetaminophen/ Hydrocodone Bitart (Lortab ) 1 tab PRN Q6HRS PRN 12/27/18 16:30 01/03/19 08:38 1 TAB Albumin Human 200 ml @ 200 mls/hr 1X PRN PRN 12/28/18 08:15 12/28/18 14:14 DC Albuterol Sulfate (Ventolin Neb Soln) 2.5 mg RTQID 12/27/18 20:00 01/04/19 11:25 2.5 MG Aspirin (Children'S Aspirin) 81 mg DAILY 12/28/18 09:00 01/03/19 08:25 81 MG Atorvastatin Calcium (Lipitor) 20 mg HS 12/27/18 21:00 01/02/19 22:35 20 MG Bisacodyl (Dulcolax Supp) 10 mg PRN DAILY PRN 12/27/18 16:30 Budesonide (Pulmicort) 0.5 mg RTBID 12/27/18 20:00 01/04/19 07:16 0.5 MG Calcium Carbonate/ Glycine (Tums) 500 mg PRN Q3HRS PRN 12/27/18 16:30 Carvedilol (Coreg) 3.125 mg BIDWMEALS 12/30/18 09:00 01/03/19 08:25 3.125 MG Cefazolin Sodium 0 ml @ As Directed STK-MED ONCE 01/04/19 12:04 01/04/19 12:05 DC Cefazolin Sodium (Ancef 1gm Ivpb For Omni) 1 gm STK-MED ONCE 01/03/19 16:00 01/04/19 08:42 DC Cefazolin Sodium 1 gm/Dextrose 50 ml @ 100 mls/hr 1X PREOP ONCE 01/03/19 15:45 01/03/19 16:14 UNV Cefazolin Sodium 1 gm/Sodium Chloride 500 ml @ 500 mls/hr 1X ONCE 01/03/19 16:18 01/03/19 17:17 DC 01/03/19 17:05 Cefepime HCl (Maxipime) 1 gm Q24H 12/27/18 18:00 01/04/19 03:15 1 GM Cellulose (Surgicel Fibrillar 1x2) 1 each STK-MED ONCE 01/03/19 16:17 01/03/19 16:17 DC Clonidine HCl (Catapres) 0.1 mg PRN Q1HR PRN 12/27/18 16:30 Dexamethasone Sodium Phosphate (Decadron) 4 mg STK-MED ONCE 01/03/19 18:07 01/03/19 18:07 DC Diclofenac Sodium (Voltaren) 100 charan PRN QID PRN 12/27/18 16:30 Diphenhydramine HCl (Benadryl) 25 mg 1X PRN PRN 01/04/19 14:15 01/05/19 14:14 Docusate Sodium (Colace) 100 mg BID 12/27/18 21:00 01/03/19 08:25 100 MG Ephedrine Sulfate (ePHEDrine PF IN SALINE SYRINGE) 50 mg STK-MED ONCE 01/03/19 18:07 01/03/19 18:07 DC Fentanyl Citrate (Fentanyl 2ml Vial) 100 mcg STK-MED ONCE 01/04/19 12:05 01/04/19 12:05 DC Ferrous Sulfate (Feosol) 325 mg TIDWMEALS 12/27/18 17:00 01/03/19 08:26 325 MG Heparin Sodium (Porcine) (Heparin Sodium) 3,000 unit 1X ONCE 12/29/18 10:30 12/29/18 10:32 DC 12/29/18 10:30 3,000 UNIT Heparin Sodium (Porcine) 5000 unit/Sodium Chloride 505 ml @ 505 mls/hr 1X ONCE 01/03/19 16:17 01/03/19 17:16 DC Heparin Sodium/ Sodium Chloride (HEPARIN for ARTERIAL LINE FLUSH) 1,000 unit 1X ONCE 01/02/19 14:45 01/02/19 15:04 DC 01/02/19 14:45 1,000 UNIT Hydromorphone HCl (Dilaudid) 1 mg PRN Q3HRS PRN 01/04/19 14:00 Info (CONTRAST GIVEN -- Rx MONITORING) 1 each PRN DAILY PRN 12/29/18 11:00 12/31/18 10:59 DC Info (PHARMACY MONITORING -- do not chart) 1 each PRN DAILY PRN 01/04/19 14:15 Insulin Glargine (Lantus Syringe) 30 unit QHS 12/31/18 21:00 01/02/19 22:41 30 UNIT Insulin Human Lispro (HumaLOG VIAL for OP,RR ONLY) 0-10 units PRN Q1HR PRN 01/03/19 15:15 01/04/19 15:14 01/03/19 19:14 4 UNIT Insulin Human Lispro (HumaLOG) 10 units TIDWMEALS 01/02/19 07:45 01/03/19 08:37 10 UNITS Iodixanol (Visipaque 320) 100 ml 1X ONCE 01/02/19 14:45 01/02/19 15:04 DC 01/02/19 14:52 114 ML Lactobacillus Rhamnosus (Culturelle) 1 cap BID 12/28/18 21:00 01/03/19 08:25 1 CAP Levothyroxine Sodium (Synthroid) 150 mcg DAILYAC 12/28/18 07:30 01/03/19 08:25 150 MCG Lidocaine HCl (Buffered Lidocaine 1%) 2 ml 1X ONCE 01/02/19 14:45 01/02/19 15:04 DC 01/02/19 14:52 2 ML Lidocaine HCl (Lidocaine Pf 2% Vial) 5 ml STK-MED ONCE 01/03/19 18:07 01/03/19 18:07 DC Lidocaine HCl (Xylocaine-Mpf 1% 2ml Vial) 2 ml PRN 1X PRN 01/03/19 11:00 01/04/19 10:59 DC Lidocaine/ Epinephrine (LIDOCAINE 1%-EPI 1:100,000 Multi-Dose) 20 ml 1X ONCE 01/04/19 12:00 01/04/19 12:04 DC 01/04/19 12:28 8 ML Losartan Potassium (Cozaar) 25 mg DAILY 01/02/19 09:00 Magnesium Hydroxide (Milk Of Magnesia) 2,400 mg PRN Q12HR PRN 12/27/18 16:30 Midazolam HCl (Versed) 2 mg STK-MED ONCE 01/04/19 12:05 01/04/19 12:05 DC Morphine Sulfate (Morphine Sulfate) 2 mg STK-MED ONCE 01/03/19 18:04 01/03/19 18:05 DC Non-Formulary Medication (Albuterol Sulfate (Ventolin Hfa Inhaler)) 2 puff QID 12/27/18 17:00 UNV Non-Formulary Medication (Fluticasone/ Vilanterol (Breo Ellipta 100-25 Mcg Inh)) 1 puff DAILY PRN 12/27/18 16:30 UNV Ondansetron HCl (Zofran) 4 mg STK-MED ONCE 01/03/19 18:07 01/03/19 18:07 DC Oxycodone HCl (Roxicodone) 5 mg PRN Q3HRS PRN 12/27/18 16:30 01/02/19 01:38 5 MG Pantoprazole Sodium (Protonix) 40 mg DAILYAC 12/28/18 07:30 01/03/19 08:26 40 MG Phenylephrine HCl (PHENYLEPHRINE in 0.9% NACL PF) 1 mg STK-MED ONCE 01/03/19 18:07 01/03/19 18:07 DC Prochlorperazine Edisylate (Compazine) 10 mg STK-MED ONCE 01/03/19 18:18 01/03/19 18:18 DC Propofol 20 ml @ As Directed STK-MED ONCE 01/03/19 18:07 01/03/19 18:07 DC Ringer's Solution 1,000 ml @ 30 mls/hr Q24H 01/03/19 10:49 01/03/19 22:48 DC Sevoflurane (Ultane) 60 ml STK-MED ONCE 01/03/19 18:07 01/03/19 18:07 DC Sodium Polystyrene Sulfonate (Kayexalate) 15 gm 1X ONCE 12/28/18 05:45 12/28/18 05:46 DC 12/28/18 05:57 15 GM Sodium Chloride 1,000 ml @ 400 mls/hr Q2H30M PRN 01/04/19 14:14 01/05/19 02:13 Vancomycin HCl (Vanco Per Pharmacy) 1 each PRN DAILY PRN 12/27/18 17:15 01/04/19 07:26 1 EACH Vancomycin HCl (Vancomycin Random Level) 1 each 1X ONCE 01/04/19 06:00 01/04/19 06:01 DC 01/04/19 07:30 1 EACH Vancomycin HCl 1.5 gm/Sodium Chloride 500 ml @ 250 mls/hr 1X ONCE 12/27/18 17:30 12/27/18 19:29 DC 12/27/18 18:02 250 MLS/HR Vancomycin HCl 500 mg/Sodium Chloride 100 ml @ 100 mls/hr QMWF 12/30/18 16:00 01/02/19 15:44 100 MLS/HR Zolpidem Tartrate (Ambien) 5 mg PRN QHS PRN 12/27/18 16:30 Lab Laboratory Tests Test 01/03/19 15:09 01/03/19 16:36 01/03/19 19:11 01/03/19 21:22 Glucose (Fingerstick) 245 mg/dL (70-99) 226 mg/dL (70-99) 180 mg/dL (70-99) 128 mg/dL (70-99) Test 01/04/19 01:53 01/04/19 05:40 01/04/19 07:49 01/04/19 11:50 Glucose (Fingerstick) 122 mg/dL (70-99) 154 mg/dL (70-99) 162 mg/dL (70-99) Random Vancomycin Level 17.1 mcg/mL Results All relevant outside records, renal labs, imaging studies, telemetry/EKG's were reviewed. RANI ERICKSON MD Jan 04, 2019 14:30
[2019-01-04] MEDS: VANCOMYCIN 500 MG in IV NORMAL SALINE 100ML 100 ML IV SCH (18:42)
[2019-01-04] MEDS: INSULIN GLARGINE SYRINGE. SQ SCH (21:00)
[2019-01-04] MEDS: ATORVASTATIN CALCIUM 20 MG TABLET PO SCH (21:17)
[2019-01-05] MEDS: HYDROcodone/APAP 10/325 1 TAB TABLET PO PRN (02:02)
[2019-01-05 03:00] VITALS: BP 111/57
[2019-01-05] MEDS: ONDANSETRON PF 4 MG/2 ML VIAL. IV PRN ×2 (03:49→16:25)
[2019-01-05 07:00] VITALS: BP 152/68
[2019-01-05] MEDS: ALBUTEROL SULFATE 2.5 MG/3 ML NEBU. NEB SCH ×4 (07:29→19:23)
[2019-01-05] MEDS: BUDESONIDE 0.5 MG/2 ML NEBU. NEB SCH ×2 (08:00→19:23)
[2019-01-05] MEDS: CARVEDILOL 3.125 MG TABLET. PO SCH ×2 (08:56→16:25)
[2019-01-05] MEDS: LEVOTHYROXINE 150 MCG TABLET PO SCH (08:56)
[2019-01-05] MEDS: DOCUSATE SODIUM 100 MG CAPSULE. PO SCH ×3 (08:56→21:47)
[2019-01-05] MEDS: FERROUS SULFATE 325 MG TABLET. PO SCH ×3 (08:56→16:25)
[2019-01-05] MEDS: LOSARTAN POTASSIUM 25 MG TABLET. PO SCH (08:57)
[2019-01-05] MEDS: ASPIRIN CHEWABLE 81 MG TABLET. PO SCH (08:57)
[2019-01-05] MEDS: PANTOPRAZOLE 40 MG TABLET.DR. PO SCH (08:57)
[2019-01-05] MEDS: LACTOBACILLUS RHAMNOSUS GG 1 CAPSULE. PO SCH ×3 (08:57→21:47)
[2019-01-05] MEDS: oxyCODONE IR 5 MG TABLET PO PRN ×2 (08:58→17:59)
[2019-01-05] MEDS: INSULIN LISPRO 300 UNITS/3 ML VIAL. SQ SCH ×3 (09:09→18:02)
--- NOTE | 2019-01-05 10:42 | PDOC ---
PROGRESS NOTES Chief Complaint Chief Complaint 1. Cellulitis left thumb, unroofed at Wound clinic, r.o osteomyelitis 2. ischemic left hand, STEAL PHENOMENON on imaging Tunneled hemodialysis catheter placement as described. This catheter demonstrates excellent manual flow rates and is suitable for use immediately. 3. 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 Monica Silver Surgery: left arm radiocephalic fistula ligation, left 1st finger tip amputation and debridement of the thumb, left 3rd finger debridement Blood loss: 10ml Anesthesia: general 3. Left arm AV fistula 4. LEft third middle finger resolving cellulitis (reported self manipulation ) with eschar formation 5. ESRD MWF HD 6. AOCD 7. MAXIMILIAN< Obesity, hypothyroidism, HTN, CAD hx, lipids- chronic stable 8. LABILE BP 9. Indwelling ICD 10 LABILE DM 11. 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 on cefepime and vanco renal dosing for dialysis local wound care 36 min pt exam, chart review, > 50% of time with exam, chart review, pt care coordination History of Present Illness History of Present Illness LABILE BP and BS Adjustments made and seems plateaud today DTr at bedside I undressed the left thumb dressing, looks like skin there Dw wound care, vasc sx on case Arteriogram done, good AV fistula patent but dec flow radial artery Awaiting plans from vasc sx There was a mention amputation but that is not something definite yet WOund care and ID on board,.renal dosing abx as HD too SHe does have leukocytosis but no fevers and non toxic appearing PLAN; VAsc sx is brain storming proper treatment plan for her WOund care and ID is following (the left thumb was unroofed at the wound clinic then advised admissioN) HD per renal MEanwhile, i resumed ARB and dec insulin coverage Discussed extensively with pleasant dtrs at bedside time 31 mins in room SHe si BPCI, slated fo [facility] on dc Vitals Vitals Vital Signs Date Time Temp Pulse Resp B/P (MAP) Pulse Ox O2 Delivery O2 Flow Rate FiO2 01/05/19 08:58 Nasal Cannula 3.0 01/05/19 08:57 92 152/68 01/05/19 07:31 92 01/05/19 07:00 98.5 22 98.5 Physical Exam Physical Exam GENERAL: laying in bed, alert HEENT: Oral mucosa moist. No thrush NECK: Supple LUNGS: Clear bilaterally. HEART: S1, S2. ABDOMEN: Soft, obese. Bowel sounds present, nontender. EXTREMITIES: Edema present, chronic. DERMATOLOGIC: Left hand with dressing in place NEUROLOGIC: Alert, answers questions General: Alert, Oriented X3, Cooperative, No acute distress, Other Heart: Regular rate, Normal S1, Normal S2, No murmurs Lungs: Clear Abdomen: Normal bowel sounds, Soft, No tenderness Extremities: Other Skin: Other Labs LABS Laboratory Tests Test 01/04/19 11:50 01/04/19 16:18 01/04/19 21:16 01/05/19 07:51 Glucose (Fingerstick) 162 mg/dL (70-99) 127 mg/dL (70-99) 180 mg/dL (70-99) 210 mg/dL (70-99) Comment Review of Relevant I have reviewed the following items filippo (where applicable) has been applied. Labs Laboratory Tests Test 01/03/19 10:45 01/03/19 11:53 01/03/19 15:09 01/03/19 16:36 White Blood Count 14.0 x10^3/uL (4.0-11.0) Red Blood Count 3.29 x10^6/uL (4.30-5.70) Hemoglobin 10.3 g/dL (13.0-17.5) Hematocrit 34.5 % (39.0-53.0) Mean Corpuscular Volume 105 fL (79-100) Mean Corpuscular Hemoglobin 31 pg (25-35) Mean Corpuscular Hemoglobin Concent 30 g/dL (31-37) Red Cell Distribution Width 15.5 % (11.5-14.5) Platelet Count 299 x10^3/uL (140-400) Neutrophils (%) (Auto) 86 % (31-73) Lymphocytes (%) (Auto) 5 % (24-48) Monocytes (%) (Auto) 7 % (0-9) Eosinophils (%) (Auto) 1 % (0-3) Basophils (%) (Auto) 1 % (0-3) Neutrophils # (Auto) 12.0 x10^3/uL (1.8-7.7) Lymphocytes # (Auto) 0.7 x10^3/uL (1.0-4.8) Monocytes # (Auto) 0.9 x10^3/uL (0.0-1.1) Eosinophils # (Auto) 0.2 x10^3/uL (0.0-0.7) Basophils # (Auto) 0.1 x10^3/uL (0.0-0.2) Glucose (Fingerstick) 267 mg/dL (70-99) 245 mg/dL (70-99) 226 mg/dL (70-99) Test 01/03/19 19:11 01/03/19 21:22 01/04/19 01:53 01/04/19 05:40 Glucose (Fingerstick) 180 mg/dL (70-99) 128 mg/dL (70-99) 122 mg/dL (70-99) Random Vancomycin Level 17.1 mcg/mL Test 01/04/19 07:49 01/04/19 11:50 01/04/19 16:18 01/04/19 21:16 Glucose (Fingerstick) 154 mg/dL (70-99) 162 mg/dL (70-99) 127 mg/dL (70-99) 180 mg/dL (70-99) Test 01/05/19 07:51 Glucose (Fingerstick) 210 mg/dL (70-99) Laboratory Tests Test 01/04/19 11:50 01/04/19 16:18 01/04/19 21:16 01/05/19 07:51 Glucose (Fingerstick) 162 mg/dL (70-99) 127 mg/dL (70-99) 180 mg/dL (70-99) 210 mg/dL (70-99) Microbiology 12/27/18 Aerobic Culture - Final, Complete 12/27/18 Aerobic Culture Result 1 (MANPREET) - Final, Complete 12/27/18 Aerobic Culture Result 2 (MANPREET) - Final, Complete 12/27/18 Antimicrobic Susceptibility - Final, Complete 12/27/18 Gram Stain - Final, Complete 12/27/18 Gram Stain Result 1 (MANPREET) - Final, Complete 12/27/18 Gram Stain Result 2 (MANPREET) - Final, Complete 12/27/18 Gram Stain Result 3 (MANPREET) - Final, Complete Medications Current Medications Ondansetron HCl (Zofran) 4 mg PRN Q6HRS PRN IV NAUSEA/VOMITING Last administered on 01/05/19 03:49; Start 12/27/18 at 16:30 Calcium Carbonate/ Glycine (Tums) 500 mg PRN Q3HRS PRN PO UPSET STOMACH; Start 12/27/18 at 16:30 Zolpidem Tartrate (Ambien) 5 mg PRN QHS PRN PO INSOMNIA, MAY REPEAT IN 1HR; Start 12/27/18 at 16:30 Oxycodone HCl (Roxicodone) 5 mg PRN Q3HRS PRN PO BREAKTHROUGH PAIN Last administered on 01/05/19 08:58; Start 12/27/18 at 16:30 Morphine Sulfate (Morphine Sulfate) 1 mg PRN Q1HR PRN IV PAIN; Start 12/27/18 at 16:30; Stop 12/27/18 at 16:39; Status DC Acetaminophen (Tylenol) 650 mg PRN Q6HRS PRN PO Headaches, Temp > 101.5F; Start 12/27/18 at 16:30 Docusate Sodium (Colace) 100 mg BID PO Last administered on 01/05/19 08:56; Start 12/27/18 at 21:00 Magnesium Hydroxide (Milk Of Magnesia) 2,400 mg PRN Q12HR PRN PO CONSTIPATION Last administered on 01/05/19 08:57; Start 12/27/18 at 16:30 Bisacodyl (Dulcolax Supp) 10 mg PRN DAILY PRN MA CONSTIPATION; Start 12/27/18 at 16:30 Ondansetron HCl (Zofran) 4 mg PRN Q6HRS PRN IVP NAUSEA/VOMITING; Start 12/27/18 at 16:30; Stop 12/28/18 at 11:31; Status DC Clonidine HCl (Catapres) 0.1 mg PRN Q1HR PRN PO HYPERTENSION; Start 12/27/18 at 16:30 Aspirin (Children'S Aspirin) 81 mg DAILY PO Last administered on 01/05/19 08:57; Start 12/28/18 at 09:00 Atorvastatin Calcium (Lipitor) 20 mg HS PO Last administered on 01/04/19at 21:17; Start 12/27/18 at 21:00 Carvedilol (Coreg) 6.25 mg BIDWMEALS PO Last administered on 12/29/18 17:39; Start 12/27/18 at 17:00; Stop 12/30/18 at 09:02; Status DC Diclofenac Sodium (Voltaren) 100 charan PRN QID PRN TP PAIN; Start 12/27/18 at 16:30 Ferrous Sulfate (Feosol) 325 mg TIDWMEALS PO Last administered on 01/05/19 08:56; Start 12/27/18 at 17:00 Acetaminophen/ Hydrocodone Bitart (Lortab 10/325) 1 tab PRN Q6HRS PRN PO MODERATE PAIN Last administered on 01/05/19 02:02; Start 12/27/18 at 16:30 Levothyroxine Sodium (Synthroid) 150 mcg DAILYAC PO Last administered on 01/05/19 08:56; Start 12/28/18 at 07:30 Losartan Potassium (Cozaar) 25 mg DAILY PO ; Start 12/28/18 at 09:00; Stop 12/31/18 at 09:09; Status DC Non-Formulary Medication (Albuterol Sulfate (Ventolin Hfa Inhaler)) 2 puff QID INH ; Start 12/27/18 at 17:00; Status UNV Non-Formulary Medication (Fluticasone/ Vilanterol (Breo Ellipta 100-25 Mcg Inh)) 1 puff DAILY PRN IH daily; Start 12/27/18 at 16:30; Status UNV Insulin Human Lispro (HumaLOG) 10 units TIDWMEALS SQ Last administered on 12/30/18at 20:05; Start 12/27/18 at 17:30; Stop 12/31/18 at 07:32; Status DC Pantoprazole Sodium (Protonix) 40 mg DAILYAC PO Last administered on 01/05/19 08:57; Start 12/28/18 at 07:30 Albuterol Sulfate (Ventolin Neb Soln) 2.5 mg RTQID NEB Last administered on 01/05/19 07:29; Start 12/27/18 at 20:00 Budesonide (Pulmicort) 0.5 mg RTBID NEB Last administered on 01/04/19at 19:40; Start 12/27/18 at 20:00 Morphine Sulfate (Morphine Sulfate) 2 mg PRN Q2HR PRN IV PAIN Last administered on 01/04/19at 13:26; Start 12/27/18 at 16:45 Cefepime HCl (Maxipime) 1 gm Q24H IVP Last administered on 01/04/19at 21:12; Start 12/27/18 at 18:00 Vancomycin HCl (Vanco Per Pharmacy) 1 each PRN DAILY PRN MC SEE COMMENTS Last administered on 01/04/19at 07:26; Start 12/27/18 at 17:15 Vancomycin HCl 1.5 gm/Sodium Chloride 500 ml @ 250 mls/hr 1X ONCE IV Last administered on 12/27/18at 18:02; Start 12/27/18 at 17:30; Stop 12/27/18 at 19:29; Status DC Vancomycin HCl (Vancomycin Random Level) 1 each 1X ONCE MC Last administered on 12/28/18at 06:00; Start 12/28/18 at 06:00; Stop 12/28/18 at 06:01; Status DC Sodium Polystyrene Sulfonate (Kayexalate) 15 gm 1X ONCE PO Last administered on 12/28/18at 05:57; Start 12/28/18 at 05:45; Stop 12/28/18 at 05:46; Status DC Sodium Chloride 1,000 ml @ 1,000 mls/hr Q1H PRN IV hypotension; Start 12/28/18 at 08:10; Stop 12/28/18 at 14:09; Status DC Albumin Human 200 ml @ 200 mls/hr 1X PRN PRN IV Hypotension; Start 12/28/18 at 08:15; Stop 12/28/18 at 14:14; Status DC Acetaminophen (Tylenol) 500 mg 1X PRN PRN PO MILD PAIN / TEMP; Start 12/28/18 at 08:15; Stop 12/29/18 at 08:14; Status DC Diphenhydramine HCl (Benadryl) 25 mg 1X PRN PRN IV ITCHING; Start 12/28/18 at 08:15; Stop 12/29/18 at 08:14; Status DC Diphenhydramine HCl (Benadryl) 25 mg 1X PRN PRN IV ITCHING; Start 12/28/18 at 08:15; Stop 12/29/18 at 08:14; Status DC Sodium Chloride 1,000 ml @ 400 mls/hr Q2H30M PRN IV PATENCY; Start 12/28/18 at 08:10; Stop 12/28/18 at 20:09; Status DC Info (PHARMACY MONITORING -- do not chart) 1 each PRN DAILY PRN MC SEE COMMENTS; Start 12/28/18 at 08:15; Stop 12/30/18 at 13:48; Status DC Vancomycin HCl 500 mg/Sodium Chloride 100 ml @ 100 mls/hr QMWF IV Last administered on 01/04/19at 18:42; Start 12/30/18 at 16:00 Lactobacillus Rhamnosus (Culturelle) 1 cap BID PO Last administered on 01/05/19at 08:57; Start 12/28/18 at 21:00 Iodixanol (Visipaque 320) 100 ml STK-MED ONCE .ROUTE ; Start 12/29/18 at 09:27; Stop 12/29/18 at 09:27; Status DC Lidocaine HCl (Buffered Lidocaine 1%) 3 ml STK-MED ONCE .ROUTE ; Start 12/29/18 at 09:27; Stop 12/29/18 at 09:27; Status DC Heparin Sodium/ Sodium Chloride 500 ml @ As Directed STK-MED ONCE .ROUTE ; Start 12/29/18 at 09:27; Stop 12/29/18 at 09:27; Status DC Midazolam HCl (Versed) 2 mg STK-MED ONCE .ROUTE ; Start 12/29/18 at 09:29; Stop 12/29/18 at 09:29; Status DC Fentanyl Citrate (Fentanyl 2ml Vial) 100 mcg STK-MED ONCE .ROUTE ; Start 12/29/18 at 09:29; Stop 12/29/18 at 09:29; Status DC Heparin Sodium (Porcine) (Heparin Sodium) 10,000 unit STK-MED ONCE .ROUTE ; Start 12/29/18 at 09:29; Stop 12/29/18 at 09:30; Status DC Heparin Sodium/ Sodium Chloride (HEPARIN for ARTERIAL LINE FLUSH) 1,000 unit 1X ONCE IART Last administered on 12/29/18at 10:00; Start 12/29/18 at 10:00; Stop 12/29/18 at 10:01; Status DC Lidocaine HCl (Buffered Lidocaine 1%) 3 ml 1X ONCE IJ Last administered on 12/29/18at 10:00; Start 12/29/18 at 10:00; Stop 12/29/18 at 10:01; Status DC Midazolam HCl (Versed) 2 mg 1X ONCE IV Last administered on 12/29/18at 10:00; Start 12/29/18 at 10:00; Stop 12/29/18 at 10:01; Status DC Fentanyl Citrate (Fentanyl 2ml Vial) 100 mcg 1X ONCE IV Last administered on 12/29/18at 10:00; Start 12/29/18 at 10:00; Stop 12/29/18 at 10:01; Status DC Iodixanol (Visipaque 320) 100 ml 1X ONCE IART Last administered on 12/29/18at 10:00; Start 12/29/18 at 10:00; Stop 12/29/18 at 10:01; Status DC Heparin Sodium (Porcine) (Heparin Sodium) 3,000 unit 1X ONCE IV Last administered on 12/29/18at 10:30; Start 12/29/18 at 10:30; Stop 12/29/18 at 10:32; Status DC Iodixanol (Visipaque 320) 50 ml STK-MED ONCE .ROUTE ; Start 12/29/18 at 10:43; Stop 12/29/18 at 10:43; Status DC Iodixanol (Visipaque 320) 50 ml 1X ONCE IART Last administered on 12/29/18at 10:45; Start 12/29/18 at 10:45; Stop 12/29/18 at 10:46; Status DC Info (CONTRAST GIVEN -- Rx MONITORING) 1 each PRN DAILY PRN MC SEE COMMENTS; Start 12/29/18 at 11:00; Stop 12/31/18 at 10:59; Status DC Carvedilol (Coreg) 3.125 mg BIDWMEALS PO Last administered on 01/05/19at 08:56; Start 12/30/18 at 09:00 Insulin Glargine (Lantus Syringe) 20 unit QHS SQ Last administered on 12/30/18at 21:00; Start 12/30/18 at 21:00; Stop 12/31/18 at 07:32; Status DC Insulin Glargine (Lantus Syringe) 10 unit ONCE ONCE SQ Last administered on 12/30/18at 09:48; Start 12/30/18 at 10:00; Stop 12/30/18 at 10:01; Status DC Sodium Chloride 1,000 ml @ 1,000 mls/hr Q1H PRN IV hypotension; Start 12/30/18 at 12:21; Stop 12/30/18 at 18:20; Status DC Diphenhydramine HCl (Benadryl) 25 mg 1X PRN PRN IV ITCHING; Start 12/30/18 at 12:30; Stop 12/31/18 at 12:29; Status DC Diphenhydramine HCl (Benadryl) 25 mg 1X PRN PRN IV ITCHING; Start 12/30/18 at 12:30; Stop 12/31/18 at 12:29; Status DC Sodium Chloride 1,000 ml @ 400 mls/hr Q2H30M PRN IV PATENCY; Start 12/30/18 at 12:21; Stop 12/31/18 at 00:20; Status DC Info (PHARMACY MONITORING -- do not chart) 1 each PRN DAILY PRN MC SEE COMMENTS; Start 12/30/18 at 12:30; Stop 01/04/19 at 14:19; Status DC Insulin Human Lispro (HumaLOG) 15 units 1X ONCE SQ Last administered on 12/30/18at 22:59; Start 12/30/18 at 23:00; Stop 12/30/18 at 23:01; Status DC Insulin Glargine (Lantus Syringe) 30 unit QHS SQ Last administered on 01/02/19at 22:41; Start 12/31/18 at 21:00 Insulin Human Lispro (HumaLOG) 15 units TIDWMEALS SQ Last administered on 01/01/19at 08:22; Start 12/31/18 at 08:00; Stop 01/01/19 at 08:35; Status DC Insulin Human Lispro (HumaLOG) 8 units TIDWMEALS SQ Last administered on 01/01/19at 16:52; Start 01/01/19 at 12:00; Stop 01/02/19 at 07:40; Status DC Insulin Human Lispro (HumaLOG) 12 units 1X ONCE SQ Last administered on 01/01/19at 21:14; Start 01/01/19 at 21:00; Stop 01/01/19 at 21:01; Status DC Losartan Potassium (Cozaar) 25 mg DAILY PO Last administered on 01/05/19at 08:57; Start 01/02/19 at 09:00 Insulin Human Lispro (HumaLOG) 10 units TIDWMEALS SQ Last administered on 01/05/19at 09:09; Start 01/02/19 at 07:45 Sodium Chloride 1,000 ml @ 1,000 mls/hr Q1H PRN IV hypotension; Start 01/02/19 at 08:18; Stop 01/02/19 at 14:17; Status DC Acetaminophen (Tylenol) 500 mg 1X PRN PRN PO MILD PAIN / TEMP; Start 01/02/19 at 08:30; Stop 01/03/19 at 08:29; Status DC Diphenhydramine HCl (Benadryl) 25 mg 1X PRN PRN IV ITCHING; Start 01/02/19 at 08:30; Stop 01/03/19 at 08:29; Status DC Diphenhydramine HCl (Benadryl) 25 mg 1X PRN PRN IV ITCHING; Start 01/02/19 at 08:30; Stop 01/03/19 at 08:29; Status DC Sodium Chloride 1,000 ml @ 400 mls/hr Q2H30M PRN IV PATENCY; Start 01/02/19 at 08:18; Stop 01/02/19 at 20:17; Status DC Info (PHARMACY MONITORING -- do not chart) 1 each PRN DAILY PRN MC SEE COMMENTS; Start 01/02/19 at 08:30; Status UNV Vancomycin HCl (Vancomycin Random Level) 1 each 1X ONCE MC Last administered on 01/04/19at 07:30; Start 01/04/19 at 06:00; Stop 01/04/19 at 06:01; Status DC Iodixanol (Visipaque 320) 100 ml STK-MED ONCE .ROUTE ; Start 01/02/19 at 13:20; Stop 01/02/19 at 13:20; Status DC Lidocaine HCl (Buffered Lidocaine 1%) 3 ml STK-MED ONCE .ROUTE ; Start 01/02/19 at 13:20; Stop 01/02/19 at 13:21; Status DC Heparin Sodium/ Sodium Chloride 1,000 ml @ As Directed STK-MED ONCE .ROUTE ; Start 01/02/19 at 13:21; Stop 01/02/19 at 13:21; Status DC Midazolam HCl (Versed) 2 mg STK-MED ONCE .ROUTE ; Start 01/02/19 at 13:52; Stop 01/02/19 at 13:53; Status DC Fentanyl Citrate (Fentanyl 2ml Vial) 100 mcg STK-MED ONCE .ROUTE ; Start 01/02/19 at 13:52; Stop 01/02/19 at 13:53; Status DC Iodixanol (Visipaque 320) 100 ml STK-MED ONCE .ROUTE ; Start 01/02/19 at 14:22; Stop 01/02/19 at 14:22; Status DC Heparin Sodium/ Sodium Chloride (HEPARIN for ARTERIAL LINE FLUSH) 1,000 unit 1X ONCE IART Last administered on 01/02/19at 14:51; Start 01/02/19 at 14:45; Stop 01/02/19 at 15:04; Status DC Heparin Sodium/ Sodium Chloride (HEPARIN for ARTERIAL LINE FLUSH) 1,000 unit 1X ONCE IART Last administered on 01/02/19at 14:45; Start 01/02/19 at 14:45; Stop 01/02/19 at 15:04; Status DC Lidocaine HCl (Buffered Lidocaine 1%) 2 ml 1X ONCE IJ Last administered on 01/02/19at 14:52; Start 01/02/19 at 14:45; Stop 01/02/19 at 15:04; Status DC Midazolam HCl (Versed) 1 mg 1X ONCE IV Last administered on 01/02/19at 14:52; Start 01/02/19 at 14:45; Stop 01/02/19 at 15:04; Status DC Fentanyl Citrate (Fentanyl 2ml Vial) 25 mcg 1X ONCE IV Last administered on 01/02/19at 14:53; Start 01/02/19 at 14:45; Stop 01/02/19 at 15:04; Status DC Iodixanol (Visipaque 320) 100 ml 1X ONCE IART Last administered on 01/02/19at 14:52; Start 01/02/19 at 14:45; Stop 01/02/19 at 15:04; Status DC Ondansetron HCl (Zofran) 4 mg PRN Q6HRS PRN IV NAUSEA/VOMITING; Start 01/03/19 at 11:00; Stop 01/04/19 at 10:59; Status DC Morphine Sulfate (Morphine Sulfate) 1 mg PRN Q10MIN PRN IV SEVERE PAIN 7-10; Start 01/03/19 at 11:00; Stop 01/04/19 at 10:59; Status DC Ringer's Solution 1,000 ml @ 30 mls/hr Q24H IV ; Start 01/03/19 at 10:49; Stop 01/03/19 at 22:48; Status DC Lidocaine HCl (Xylocaine-Mpf 1% 2ml Vial) 2 ml PRN 1X PRN ID PRIOR TO IV START; Start 01/03/19 at 11:00; Stop 01/04/19 at 10:59; Status DC Hydromorphone HCl (Dilaudid) 0.5 mg PRN Q10MIN PRN IV SEV PAIN, Second choice Last administered on 01/03/19at 19:10; Start 01/03/19 at 11:00; Stop 01/04/19 at 10:59; Status DC Prochlorperazine Edisylate (Compazine) 5 mg PACU PRN PRN IV NAUSEA, MRX1 Last administered on 01/03/19at 18:30; Start 01/03/19 at 11:00; Stop 01/04/19 at 10:59; Status DC Insulin Human Lispro (HumaLOG VIAL for OP,RR ONLY) 0-10 units PRN Q1HR PRN SQ PER PROTOCOL Last administered on 01/03/19at 19:14; Start 01/03/19 at 15:15; Stop 01/04/19 at 15:14; Status DC Cefazolin Sodium 1 gm/Dextrose 50 ml @ 100 mls/hr 1X PREOP ONCE IV ; Start 01/03/19 at 15:45; Stop 01/03/19 at 16:14; Status UNV Cefazolin Sodium 50 ml @ 100 mls/hr 1X ONCE IV ; Start 01/03/19 at 16:00; Stop 01/03/19 at 16:29; Status DC Heparin Sodium (Porcine) 5000 unit/Sodium Chloride 505 ml @ 505 mls/hr 1X ONCE IRR ; Start 01/03/19 at 16:17; Stop 01/03/19 at 17:16; Status DC Lidocaine HCl 20 ml STK-MED ONCE .ROUTE ; Start 01/03/19 at 16:17; Stop 01/03/19 at 16:17; Status DC Cellulose (Surgicel Fibrillar 1x2) 1 each STK-MED ONCE .ROUTE ; Start 01/03/19 at 16:17; Stop 01/03/19 at 16:17; Status DC Cefazolin Sodium 1 gm/Sodium Chloride 500 ml @ 500 mls/hr 1X ONCE IRR Last administered on 01/03/19at 17:05; Start 01/03/19 at 16:18; Stop 01/03/19 at 17:17; Status DC Lidocaine HCl 20 ml STK-MED ONCE .ROUTE ; Start 01/03/19 at 16:17; Stop 01/03/19 at 16:18; Status DC Morphine Sulfate (Morphine Sulfate) 2 mg STK-MED ONCE .ROUTE ; Start 01/03/19 at 18:04; Stop 01/03/19 at 18:05; Status DC Ondansetron HCl (Zofran) 4 mg STK-MED ONCE .ROUTE ; Start 01/03/19 at 18:07; Stop 01/03/19 at 18:07; Status DC Propofol 20 ml @ As Directed STK-MED ONCE IV ; Start 01/03/19 at 18:07; Stop 01/03/19 at 18:07; Status DC Lidocaine HCl (Lidocaine Pf 2% Vial) 5 ml STK-MED ONCE .ROUTE ; Start 01/03/19 at 18:07; Stop 01/03/19 at 18:07; Status DC Phenylephrine HCl (PHENYLEPHRINE in 0.9% NACL PF) 1 mg STK-MED ONCE IV ; Start 01/03/19 at 18:07; Stop 01/03/19 at 18:07; Status DC Dexamethasone Sodium Phosphate (Decadron) 4 mg STK-MED ONCE .ROUTE ; Start 01/03/19 at 18:07; Stop 01/03/19 at 18:07; Status DC Ephedrine Sulfate (ePHEDrine PF IN SALINE SYRINGE) 50 mg STK-MED ONCE IV ; Start 01/03/19 at 18:07; Stop 01/03/19 at 18:07; Status DC Sevoflurane (Ultane) 60 ml STK-MED ONCE IH ; Start 01/03/19 at 18:07; Stop 01/03/19 at 18:07; Status DC Hydromorphone HCl (Dilaudid) 2 mg STK-MED ONCE .ROUTE ; Start 01/03/19 at 18:11; Stop 01/03/19 at 18:11; Status DC Prochlorperazine Edisylate (Compazine) 10 mg STK-MED ONCE .ROUTE ; Start 01/03/19 at 18:18; Stop 01/03/19 at 18:18; Status DC Cefazolin Sodium (Ancef 1gm Ivpb For Omni) 1 gm STK-MED ONCE IV ; Start 01/03/19 at 16:00; Stop 01/04/19 at 08:42; Status DC Lidocaine/ Epinephrine (LIDOCAINE 1%-EPI 1:100,000 Multi-Dose) 20 ml STK-MED ONCE .ROUTE ; Start 01/04/19 at 10:53; Stop 01/04/19 at 10:53; Status DC Midazolam HCl (Versed) 2 mg 1X ONCE IV Last administered on 01/04/19at 12:27; Start 01/04/19 at 12:00; Stop 01/04/19 at 12:04; Status DC Fentanyl Citrate (Fentanyl 2ml Vial) 100 mcg 1X ONCE IV Last administered on 01/04/19at 12:27; Start 01/04/19 at 12:00; Stop 01/04/19 at 12:05; Status DC Lidocaine/ Epinephrine (LIDOCAINE 1%-EPI 1:100,000 Multi-Dose) 20 ml 1X ONCE SQ Last administered on 01/04/19at 12:28; Start 01/04/19 at 12:00; Stop 01/04/19 at 12:04; Status DC Cefazolin Sodium 50 ml @ 100 mls/hr 1X ONCE IV ; Start 01/04/19 at 12:00; Stop 01/04/19 at 12:29; Status Cancel Cefazolin Sodium 0 ml @ As Directed STK-MED ONCE IV ; Start 01/04/19 at 12:04; Stop 01/04/19 at 12:05; Status DC Midazolam HCl (Versed) 2 mg STK-MED ONCE .ROUTE ; Start 01/04/19 at 12:05; Stop 01/04/19 at 12:05; Status DC Fentanyl Citrate (Fentanyl 2ml Vial) 100 mcg STK-MED ONCE .ROUTE ; Start 01/04/19 at 12:05; Stop 01/04/19 at 12:05; Status DC Hydromorphone HCl (Dilaudid) 1 mg PRN Q3HRS PRN IV PAIN Last administered on 01/04/19at 14:28; Start 01/04/19 at 14:00 Sodium Chloride 1,000 ml @ 1,000 mls/hr Q1H PRN IV hypotension; Start 01/04/19 at 14:14; Stop 01/04/19 at 20:13; Status DC Diphenhydramine HCl (Benadryl) 25 mg 1X PRN PRN IV ITCHING; Start 01/04/19 at 14:15; Stop 01/05/19 at 14:14 Diphenhydramine HCl (Benadryl) 25 mg 1X PRN PRN IV ITCHING; Start 01/04/19 at 14:15; Stop 01/05/19 at 14:14 Sodium Chloride 1,000 ml @ 400 mls/hr Q2H30M PRN IV PATENCY; Start 01/04/19 at 14:14; Stop 01/05/19 at 02:13; Status DC Info (PHARMACY MONITORING -- do not chart) 1 each PRN DAILY PRN MC SEE COMMENTS; Start 01/04/19 at 14:15 Active Scripts Active Reported Augmentin 875-125 Tablet (Amoxicillin/Potassium Clav) 1 Each Tablet 1 Tab PO BID Protonix (Pantoprazole Sodium) 20 Mg Tablet.dr 40 Mg PO DAILY Lipitor (Atorvastatin Calcium) 20 Mg Tablet 20 Mg PO HS Aspirin 81 Mg Tab.chew 1 Tab PO DAILY Losartan Potassium 50 Mg Tablet 25 Mg PO DAILY Tums (Calcium Carbonate) 200 Mg Tab.chew 2 Tab PO TIDAC Breo Ellipta 100-25 Mcg Inh (Fluticasone/Vilanterol) 1 Each Aer.pow.ba 1 Puff IH DAILY PRN Ventolin Hfa Inhaler (Albuterol Sulfate) 18 Gm Hfa.aer.ad 2 Puff INH QID Ferrous Sulfate 325 Mg Tablet 325 Mg PO TID Docusate Sodium 100 Mg Capsule 100 Mg PO BID Humulin R U-500 Kwikpen (Insulin Regular, Human) 500 Unit/1 Ml Insuln.pen 10 Unit SQ TIDAC U-500 Voltaren (Diclofenac Sodium) 100 Gm Gel..gram. 100 Gm TP PRN QID PRN [place] 10-325 Tablet (Acetaminophen/Hydrocodone Bitart) 1 Each Tablet 1 Tab PO PRN Q6HRS PRN Levothyroxine Sodium 150 Mcg Tablet 150 Mcg PO DAILYAC Carvedilol (Carvedilol) 6.25 Mg Tablet 6.25 Mg PO BIDWMEALS Vitals/I & O Vital Sign - Last 24 Hours 01/04/19 01/04/19 01/04/19 01/04/19 11:00 11:26 12:27 12:40 Temp 98.8 98.8 Pulse 102 110 Resp 18 19 19 B/P (MAP) 113/48 (69) Pulse Ox 99 93 O2 Delivery Nasal Cannula Nasal Cannula Nasal Cannula O2 Flow Rate 2.0 2.0 3.0 01/04/19 01/04/19 01/04/19 01/04/19 13:00 13:15 13:26 13:30 Pulse 102 102 102 B/P (MAP) 156/58 (90) 140/41 (74) 147/42 (77) Pulse Ox 97 97 95 O2 Delivery Nasal Cannula Nasal Cannula Nasal Cannula Nasal Cannula O2 Flow Rate 3.0 3.0 3.0 3.0 01/04/19 01/04/19 01/04/19 01/04/19 13:45 14:02 14:24 14:28 Pulse 102 102 98 B/P (MAP) 137/43 (74) 130/68 (88) 130/70 (90) Pulse Ox 96 O2 Delivery Nasal Cannula Nasal Cannula Nasal Cannula Nasal Cannula O2 Flow Rate 3.0 2.0 2.0 2.0 01/04/19 01/04/19 01/04/19 01/04/19 14:31 14:32 14:54 16:00 Pulse 98 B/P (MAP) 107/56 (73) O2 Delivery Nasal Cannula Nasal Cannula Nasal Cannula Nasal Cannula O2 Flow Rate 2.0 2.0 2.0 2.0 01/04/19 01/04/19 01/04/19 01/04/19 18:41 19:00 19:43 20:05 Temp 98.6 98.6 Pulse 98 99 Resp 18 B/P (MAP) 122/59 123/62 (82) Pulse Ox 99 99 O2 Delivery Nasal Cannula Nasal Cannula Nasal Cannula O2 Flow Rate 2.0 2.0 3.0 01/04/19 01/04/19 01/05/19 01/05/19 21:55 23:00 02:02 03:00 Temp 98.5 99.7 98.5 99.7 Pulse 103 96 Resp 18 18 B/P (MAP) 112/54 (73) 111/57 (75) Pulse Ox 96 96 O2 Delivery Nasal Cannula Nasal Cannula Nasal Cannula Nasal Cannula O2 Flow Rate 3.0 2.0 2.0 3.0 01/05/19 01/05/19 01/05/19 01/05/19 03:02 07:00 07:31 08:56 Temp 98.5 98.5 Pulse 92 92 Resp 22 B/P (MAP) 152/68 (96) 152/68 Pulse Ox 94 92 O2 Delivery Nasal Cannula Nasal Cannula Nasal Cannula O2 Flow Rate 3.0 2.0 2.0 01/05/19 01/05/19 08:57 08:58 Pulse 92 B/P (MAP) 152/68 O2 Delivery Nasal Cannula O2 Flow Rate 3.0 Intake and Output 01/04/19 01/04/19 01/05/19 15:00 23:00 07:00 Intake Total 20 ml 300 ml Balance 20 ml 300 ml RAHEEL REARDON MD Jan 05, 2019 10:42
--- NOTE | 2019-01-05 10:46 | PDOC ---
Infectious Disease Note Subjective Subjective Doing well but some finger pain "here ad there" Denies numbness/tingling Had some nausea No BM or flatus No F/C/soa/RASH ROS ROS o/w neg Vital Sign Vital Signs Vital Signs Date Time Temp Pulse Resp B/P (MAP) Pulse Ox O2 Delivery O2 Flow Rate FiO2 01/05/19 08:58 Nasal Cannula 3.0 01/05/19 08:57 92 152/68 01/05/19 07:31 92 01/05/19 07:00 98.5 22 98.5 Physical Exam PHYSICAL EXAM GENERAL: Propped up in bed, alert - NAD HEENT: Oral mucosa moist. No thrush NECK: Supple LUNGS: Clear bilaterally. HEART: S1, S2. ABDOMEN: Soft, obese. Decreased Bowel sounds, nontender but some distension. EXTREMITIES: Edema present, chronic. DERMATOLOGIC: Left hand with vac and dressing in place NEUROLOGIC: Alert, answers questions R chest HD cath - clean Labs Lab Laboratory Tests Test 01/04/19 11:50 01/04/19 16:18 01/04/19 21:16 01/05/19 07:51 Glucose (Fingerstick) 162 mg/dL (70-99) 127 mg/dL (70-99) 180 mg/dL (70-99) 210 mg/dL (70-99) Micro AEROBIC RES 1 Final Enterococcus species Enterococcus faecalis 4+ AEROBIC RES 2 Final Mixed skin emre 4+ Performed at: [facility], [place], [place] [id number] Sap Bpc Architect: BOBBY Mahajan MD, Phone: [phone] ANTIMICROBIAL SUSCEPTIBILITY Final Comment S = Susceptible; I = Intermediate; R = Resistant P = Positive; N = Negative MICS are expressed in micrograms per mL Antibiotic RSLT#1 RSLT#2 RSLT#3 RSLT#4 Penicillin S =1 Vancomycin S =1 Microbiology 12/27/18 Aerobic Culture - Final, Complete 12/27/18 Aerobic Culture Result 1 (MANPREET) - Final, Complete 12/27/18 Aerobic Culture Result 2 (MANPREET) - Final, Complete 12/27/18 Antimicrobic Susceptibility - Final, Complete 12/27/18 Gram Stain - Final, Complete 12/27/18 Gram Stain Result 1 (MANPREET) - Final, Complete 12/27/18 Gram Stain Result 2 (MANPREET) - Final, Complete 12/27/18 Gram Stain Result 3 (MANPREET) - Final, Complete Objective Assessment S/p left arm radiocephalic fistula ligation, left 1st finger tip amputation and debridement of the thumb, left 3rd finger debridement 01/03 Left thumb infection, C/S GPC,GPR - mixed skin emre & enterococcus spp 12/27 Left 3rd finger dry eschar Leukocytosis - stable in part reactive with steal. S/p Dexamethasone 01/03 Steal phenomenon End-stage renal disease, on hemodialysis.thru LUE fistula, w/u for steal phenomenon Diabetes mellitus, uncontrolled. History of breast abscess with MSSA, Klebsiella and E. coli 04/2018. PPM in place. Plan Plan of Care Post op wounds are open so will cont cefepime and vanco renal dosing for dialysis local wound care Await further vascular f/u f/u c.s and labs in am Monitor for potential ileus D/w family and nursing KINGSTON HERNANDEZ MD Jan 05, 2019 10:45
[2019-01-05 11:00] VITALS: BP 134/56
--- NOTE | 2019-01-05 11:04 | NUR ---
SW following for discharge planning. Chart reviewed, discussed with RN. Pt has a wound vac on thumb, IV abx. Plan is to discharge home with [facility], when ready. SW will continue to follow.
--- NOTE | 2019-01-05 12:00 | PDOC ---
SUBJECTIVE ROS Stable OBJECTIVE Vital Signs Vital Signs Date Time Temp Pulse Resp B/P (MAP) Pulse Ox O2 Delivery O2 Flow Rate FiO2 01/05/19 11:26 Nasal Cannula 3.0 01/05/19 11:00 98.3 91 20 134/56 (82) 94 98.3 I & 0 Intake and Output 01/05/19 07:00 Intake Total 320 ml Balance 320 ml Intake Oral 320 ml # Voids 1 PHYSICAL EXAM Physical Exam General: NAD HEENT: OM moist Lungs: Clear to auscultation, Non labored Heart: Regular rate, Normal S1, Normal S2 Abdomen: Normal bowel sounds, Soft Extremities: No edema , Left hand with vac and dressing in place Skin: No rashes, Neuro: Grossly normal - no Weaver DIAGNOSIS/ASSESSMENT Assessment & Plan ESRD- MMF Dr. Giles , has been on HD for 3-4 years , No RRF No indication for HD today Access- Tunneled HDC placed on 12/25 Lt Forearm AVF ligated on 01/03 04/09 steal syndrome Lt thumb infection- On Abx per ID ,Vascular following Fistulogram findings consistent with steal phenomenon. 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 COMMENT/RELEVANT DATA Meds Current Medications Medications (Trade) Dose Ordered Sig/Becki Start Time Stop Time Status Last Admin Dose Admin Acetaminophen (Tylenol) 500 mg 1X PRN PRN 01/02/19 08:30 01/03/19 08:29 DC Acetaminophen/ Hydrocodone Bitart (Lortab ) 1 tab PRN Q6HRS PRN 12/27/18 16:30 01/05/19 02:02 1 TAB Albumin Human 200 ml @ 200 mls/hr 1X PRN PRN 12/28/18 08:15 12/28/18 14:14 DC Albuterol Sulfate (Ventolin Neb Soln) 2.5 mg RTQID 12/27/18 20:00 01/05/19 11:19 2.5 MG Aspirin (Children'S Aspirin) 81 mg DAILY 12/28/18 09:00 01/05/19 08:57 81 MG Atorvastatin Calcium (Lipitor) 20 mg HS 12/27/18 21:00 01/04/19 21:17 20 MG Bisacodyl (Dulcolax Supp) 10 mg PRN DAILY PRN 12/27/18 16:30 Budesonide (Pulmicort) 0.5 mg RTBID 12/27/18 20:00 01/05/19 08:00 0.5 MG Calcium Carbonate/ Glycine (Tums) 500 mg PRN Q3HRS PRN 12/27/18 16:30 Carvedilol (Coreg) 3.125 mg BIDWMEALS 12/30/18 09:00 01/05/19 08:56 3.125 MG Cefazolin Sodium 0 ml @ As Directed STK-MED ONCE 01/04/19 12:04 01/04/19 12:05 DC Cefazolin Sodium (Ancef 1gm Ivpb For Omni) 1 gm STK-MED ONCE 01/03/19 16:00 01/04/19 08:42 DC Cefazolin Sodium 1 gm/Dextrose 50 ml @ 100 mls/hr 1X PREOP ONCE 01/03/19 15:45 01/03/19 16:14 UNV Cefazolin Sodium 1 gm/Sodium Chloride 500 ml @ 500 mls/hr 1X ONCE 01/03/19 16:18 01/03/19 17:17 DC 01/03/19 17:05 Cefepime HCl (Maxipime) 1 gm Q24H 12/27/18 18:00 01/04/19 21:12 1 GM Cellulose (Surgicel Fibrillar 1x2) 1 each STK-MED ONCE 01/03/19 16:17 01/03/19 16:17 DC Clonidine HCl (Catapres) 0.1 mg PRN Q1HR PRN 12/27/18 16:30 Dexamethasone Sodium Phosphate (Decadron) 4 mg STK-MED ONCE 01/03/19 18:07 01/03/19 18:07 DC Diclofenac Sodium (Voltaren) 100 charan PRN QID PRN 12/27/18 16:30 Diphenhydramine HCl (Benadryl) 25 mg 1X PRN PRN 01/04/19 14:15 01/05/19 14:14 Docusate Sodium (Colace) 100 mg BID 12/27/18 21:00 01/05/19 08:56 100 MG Ephedrine Sulfate (ePHEDrine PF IN SALINE SYRINGE) 50 mg STK-MED ONCE 01/03/19 18:07 01/03/19 18:07 DC Fentanyl Citrate (Fentanyl 2ml Vial) 100 mcg STK-MED ONCE 01/04/19 12:05 01/04/19 12:05 DC Ferrous Sulfate (Feosol) 325 mg TIDWMEALS 12/27/18 17:00 01/05/19 08:56 325 MG Heparin Sodium (Porcine) (Heparin Sodium) 3,000 unit 1X ONCE 12/29/18 10:30 12/29/18 10:32 DC 12/29/18 10:30 3,000 UNIT Heparin Sodium (Porcine) 5000 unit/Sodium Chloride 505 ml @ 505 mls/hr 1X ONCE 01/03/19 16:17 01/03/19 17:16 DC Heparin Sodium/ Sodium Chloride (HEPARIN for ARTERIAL LINE FLUSH) 1,000 unit 1X ONCE 01/02/19 14:45 01/02/19 15:04 DC 01/02/19 14:45 1,000 UNIT Hydromorphone HCl (Dilaudid) 1 mg PRN Q3HRS PRN 01/04/19 14:00 01/04/19 14:28 1 MG Info (CONTRAST GIVEN -- Rx MONITORING) 1 each PRN DAILY PRN 12/29/18 11:00 12/31/18 10:59 DC Info (PHARMACY MONITORING -- do not chart) 1 each PRN DAILY PRN 01/04/19 14:15 Insulin Glargine (Lantus Syringe) 30 unit QHS 12/31/18 21:00 01/02/19 22:41 30 UNIT Insulin Human Lispro (HumaLOG VIAL for OP,RR ONLY) 0-10 units PRN Q1HR PRN 01/03/19 15:15 01/04/19 15:14 DC 01/03/19 19:14 4 UNIT Insulin Human Lispro (HumaLOG) 10 units TIDWMEALS 01/02/19 07:45 01/05/19 09:09 10 UNITS Iodixanol (Visipaque 320) 100 ml 1X ONCE 01/02/19 14:45 01/02/19 15:04 DC 01/02/19 14:52 114 ML Lactobacillus Rhamnosus (Culturelle) 1 cap BID 12/28/18 21:00 01/05/19 08:57 1 CAP Levothyroxine Sodium (Synthroid) 150 mcg DAILYAC 12/28/18 07:30 01/05/19 08:56 150 MCG Lidocaine HCl (Buffered Lidocaine 1%) 2 ml 1X ONCE 01/02/19 14:45 01/02/19 15:04 DC 01/02/19 14:52 2 ML Lidocaine HCl (Lidocaine Pf 2% Vial) 5 ml STK-MED ONCE 01/03/19 18:07 01/03/19 18:07 DC Lidocaine HCl (Xylocaine-Mpf 1% 2ml Vial) 2 ml PRN 1X PRN 01/03/19 11:00 01/04/19 10:59 DC Lidocaine/ Epinephrine (LIDOCAINE 1%-EPI 1:100,000 Multi-Dose) 20 ml 1X ONCE 01/04/19 12:00 01/04/19 12:04 DC 01/04/19 12:28 8 ML Losartan Potassium (Cozaar) 25 mg DAILY 01/02/19 09:00 01/05/19 08:57 25 MG Magnesium Hydroxide (Milk Of Magnesia) 2,400 mg PRN Q12HR PRN 12/27/18 16:30 01/05/19 08:57 2,400 MG Midazolam HCl (Versed) 2 mg STK-MED ONCE 01/04/19 12:05 01/04/19 12:05 DC Morphine Sulfate (Morphine Sulfate) 2 mg STK-MED ONCE 01/03/19 18:04 01/03/19 18:05 DC Non-Formulary Medication (Albuterol Sulfate (Ventolin Hfa Inhaler)) 2 puff QID 12/27/18 17:00 UNV Non-Formulary Medication (Fluticasone/ Vilanterol (Breo Ellipta 100-25 Mcg Inh)) 1 puff DAILY PRN 12/27/18 16:30 UNV Ondansetron HCl (Zofran) 4 mg STK-MED ONCE 01/03/19 18:07 01/03/19 18:07 DC Oxycodone HCl (Roxicodone) 5 mg PRN Q3HRS PRN 12/27/18 16:30 01/05/19 08:58 5 MG Pantoprazole Sodium (Protonix) 40 mg DAILYAC 12/28/18 07:30 01/05/19 08:57 40 MG Phenylephrine HCl (PHENYLEPHRINE in 0.9% NACL PF) 1 mg STK-MED ONCE 01/03/19 18:07 01/03/19 18:07 DC Prochlorperazine Edisylate (Compazine) 10 mg STK-MED ONCE 01/03/19 18:18 01/03/19 18:18 DC Propofol 20 ml @ As Directed STK-MED ONCE 01/03/19 18:07 01/03/19 18:07 DC Ringer's Solution 1,000 ml @ 30 mls/hr Q24H 01/03/19 10:49 01/03/19 22:48 DC Sevoflurane (Ultane) 60 ml STK-MED ONCE 01/03/19 18:07 01/03/19 18:07 DC Sodium Polystyrene Sulfonate (Kayexalate) 15 gm 1X ONCE 12/28/18 05:45 12/28/18 05:46 DC 12/28/18 05:57 15 GM Sodium Chloride 1,000 ml @ 400 mls/hr Q2H30M PRN 01/04/19 14:14 01/05/19 02:13 DC Vancomycin HCl (Vanco Per Pharmacy) 1 each PRN DAILY PRN 12/27/18 17:15 01/04/19 07:26 1 EACH Vancomycin HCl (Vancomycin Random Level) 1 each 1X ONCE 01/04/19 06:00 01/04/19 06:01 DC 01/04/19 07:30 1 EACH Vancomycin HCl 1.5 gm/Sodium Chloride 500 ml @ 250 mls/hr 1X ONCE 12/27/18 17:30 12/27/18 19:29 DC 12/27/18 18:02 250 MLS/HR Vancomycin HCl 500 mg/Sodium Chloride 100 ml @ 100 mls/hr QMWF 12/30/18 16:00 01/04/19 18:42 100 MLS/HR Zolpidem Tartrate (Ambien) 5 mg PRN QHS PRN 12/27/18 16:30 Lab Laboratory Tests Test 01/04/19 16:18 01/04/19 21:16 01/05/19 07:51 Glucose (Fingerstick) 127 mg/dL (70-99) 180 mg/dL (70-99) 210 mg/dL (70-99) Results All relevant outside records, renal labs, imaging studies, telemetry/EKG's were reviewed. RANI ERICKSON MD Jan 05, 2019 12:00
[2019-01-05 12:13] LABS: BASO # 0.1 x10^3/uL (0.0-0.2); BASO % 1 % (0-3); EOS # 0.1 x10^3/uL (0.0-0.7); EOS % 1 % (0-3); HEMATOCRIT 30.8 % (36.0-47.0); HEMOGLOBIN 9.4 g/dL (12.0-15.5); LYMPH % 9 % (24-48); MEAN CORPUSCULAR HEMOGLOBIN 32 pg (25-35); MEAN CORPUSCULAR HGB CONC 31 g/dL (31-37); MEAN CORPUSCULAR VOLUME 103 fL (79-100); MONO % 9 % (0-9); NEUT # 8.9 x10^3/uL (1.8-7.7); NEUT % 81 % (31-73); PLATELET COUNT 262 x10^3/uL (140-400); RED BLOOD COUNT 2.98 x10^6/uL (3.50-5.40); RED CELL DISTRIBUTION WIDTH 15.4 % (11.5-14.5)
[2019-01-05] MEDS: VANCOMYCIN PER PHARMACY MC PRN (14:52)
[2019-01-05 15:00] VITALS: BP 105/43
[2019-01-05 17:30] LABS: CALCIUM 8.3 mg/dL (8.5-10.1); CREATININE 4.7 mg/dL (0.6-1.0); GFR 11.2; POTASSIUM 4.6 mmol/L (3.5-5.1)
[2019-01-05 17:32] LABS: ALBUMIN 2.4 g/dL (3.4-5.0); ALBUMIN/GLOBULIN RATIO 0.5 (1.0-1.7); TOTAL BILIRUBIN 0.3 mg/dL (0.2-1.0); TOTAL PROTEIN 7.1 g/dL (6.4-8.2)
[2019-01-05 19:00] VITALS: BP 111/49
[2019-01-05] MEDS: ATORVASTATIN CALCIUM 20 MG TABLET PO SCH ×2 (21:00→21:47)
[2019-01-05] MEDS: INSULIN GLARGINE SYRINGE. SQ SCH (21:27)
[2019-01-05] MEDS: CEFEPIME HCL IV Push 1 GM VIAL. IVP SCH (21:39)
[2019-01-05 23:00] VITALS: BP 119/48
[2019-01-06 03:00] VITALS: BP 96/39
[2019-01-06 05:25] VITALS: BP 89/41
[2019-01-06 06:42] LABS: BASE EXCESS ABG 1 mmol/L (-3-3); HCO3 ABG 29 mmol/L (21-28); PO2 ABG 84 mmHg (65-108); SAT O2 ABG 95 % (92-99)
[2019-01-06 06:51] LABS: FIO2 ABG 24; PCO2 ABG 67 mmHg (35-46)
[2019-01-06 07:00] VITALS: BP 92/39
--- NOTE | 2019-01-06 07:08 | NUR ---
Wound Care Pt has been approved for home [facility] wound vac, when ready for d/c.
[2019-01-06] MEDS: BUDESONIDE 0.5 MG/2 ML NEBU. NEB SCH ×2 (07:28→19:50)
[2019-01-06] MEDS: ALBUTEROL SULFATE 2.5 MG/3 ML NEBU. NEB SCH ×4 (07:28→19:51)
[2019-01-06] MEDS ORDERED: IV NORMAL SALINE 500ML BAG 500 ML IV ONE (07:45)
[2019-01-06] MEDS: CARVEDILOL 3.125 MG TABLET. PO SCH ×2 (08:00→16:29)
[2019-01-06] MEDS: INSULIN LISPRO 300 UNITS/3 ML VIAL. SQ SCH ×3 (08:00→17:00)
[2019-01-06] MEDS ORDERED: IV NORMAL SALINE 1000ML BAG 1,000 ML IV PRN ×2 (08:10)
[2019-01-06] MEDS ORDERED: diphenhydrAMINE 50 MG/ML VIAL IV PRN ×2 (08:15)
[2019-01-06] MEDS ORDERED: ACETAMINOPHEN 500 MG TABLET PO PRN (08:15)
[2019-01-06] MEDS ORDERED: DIALYSIS PATIENT. MC PRN (08:15)
[2019-01-06] MEDS: LOSARTAN POTASSIUM 25 MG TABLET. PO SCH (09:00)
[2019-01-06 09:01] LABS: BASO # 0.1 x10^3/uL (0.0-0.2); BASO % 1 % (0-3); EOS # 0.2 x10^3/uL (0.0-0.7); EOS % 1 % (0-3); HEMATOCRIT 28.3 % (36.0-47.0); HEMOGLOBIN 8.7 g/dL (12.0-15.5); LYMPH # 1.1 x10^3/uL (1.0-4.8); LYMPH % 9 % (24-48); MEAN CORPUSCULAR HEMOGLOBIN 32 pg (25-35); MEAN CORPUSCULAR HGB CONC 31 g/dL (31-37); MEAN CORPUSCULAR VOLUME 104 fL (79-100); MONO % 9 % (0-9); NEUT # 8.9 x10^3/uL (1.8-7.7); NEUT % 79 % (31-73); PLATELET COUNT 248 x10^3/uL (140-400); RED BLOOD COUNT 2.71 x10^6/uL (3.50-5.40); RED CELL DISTRIBUTION WIDTH 14.8 % (11.5-14.5); WHITE BLOOD COUNT 11.3 x10^3/uL (4.0-11.0)
--- NOTE | 2019-01-06 09:29 | PDOC ---
Provider Note Provider Note Vascular S: Patient seen while on dialysis. Patient is somewhat somnolent this morning. Patient does complain of discomfort when manipulating left hand. O: Drowsy Vital signs stable, afebrile Left arm dressing removed, ligation incision is dry and intact with surgical glue. Wound VAC is in place to left thumb periwound intact. Biphasic Doppler signal in radial and ulnar artery. No flow by examination in the fistula post ligation. A/P: Radial artery to cephalic vein fistula causing ischemic changes in her hand including gangrene of the left thumb and an ulcerated gangrenous area on her left third finger. POD #3 1. Ligation of the left radial artery to cephalic vein fistula. 2. Left thumb distal tip amputation removing the distal phalanx bone with sharp excisional debridement of the thumb down to the base, removing necrotic skin and subcutaneous tissue. 3. Left third finger sharp excisional debridement of necrotic skin and subcutaneous tissue measuring approximately 1 cm in length x 0.5 cm in width x 0.5 cm in depth. Recommend continued wound VAC therapy. We'll continue to monitor closely. PT/OT evaluate and treat so patient will keep active with left hand. No immediate plans for access placement. Recommend continued dialysis via catheter. DOROTHY JOSEPH APRN Jan 06, 2019 09:29
[2019-01-06 09:36] LABS: ALBUMIN 2.2 g/dL (3.4-5.0); ALBUMIN/GLOBULIN RATIO 0.4 (1.0-1.7); CALCIUM 8.4 mg/dL (8.5-10.1); CREATININE 5.1 mg/dL (0.6-1.0); GFR 10.1; POTASSIUM 4.6 mmol/L (3.5-5.1); TOTAL BILIRUBIN 0.3 mg/dL (0.2-1.0); TOTAL PROTEIN 7.1 g/dL (6.4-8.2)
--- NOTE | 2019-01-06 10:48 | PDOC ---
Infectious Disease Note Subjective Subjective Doing well now but was somnolent earlier but better with Bipap Denies numbness/tingling + flatus No F/C/soa/RASH ROS ROS o/w neg Vital Sign Vital Signs Vital Signs Date Time Temp Pulse Resp B/P (MAP) Pulse Ox O2 Delivery O2 Flow Rate FiO2 01/06/19 09:05 99 BiPAP/CPAP 01/06/19 07:31 2.0 01/06/19 07:00 97.9 89 14 92/39 (56) 97.9 Physical Exam PHYSICAL EXAM GENERAL: Propped up in bed, alert - NAD on Bipap HEENT: nml NECK: Supple LUNGS: Clear bilaterally. HEART: S1, S2. ABDOMEN: Soft, obese. Decreased Bowel sounds, nontender but some distension. EXTREMITIES: Edema present, chronic. DERMATOLOGIC: Left hand with vac and dressing in place NEUROLOGIC: Alert, answers questions R chest HD cath - clean Labs Lab Laboratory Tests Test 01/05/19 11:48 01/05/19 11:54 01/05/19 16:52 01/05/19 21:23 Glucose (Fingerstick) 233 mg/dL (70-99) 220 mg/dL (70-99) 202 mg/dL (70-99) White Blood Count 11.0 x10^3/uL (4.0-11.0) Red Blood Count 2.98 x10^6/uL (3.50-5.40) Hemoglobin 9.4 g/dL (12.0-15.5) Hematocrit 30.8 % (36.0-47.0) Mean Corpuscular Volume 103 fL (79-100) Mean Corpuscular Hemoglobin 32 pg (25-35) Mean Corpuscular Hemoglobin Concent 31 g/dL (31-37) Red Cell Distribution Width 15.4 % (11.5-14.5) Platelet Count 262 x10^3/uL (140-400) Neutrophils (%) (Auto) 81 % (31-73) Lymphocytes (%) (Auto) 9 % (24-48) Monocytes (%) (Auto) 9 % (0-9) Eosinophils (%) (Auto) 1 % (0-3) Basophils (%) (Auto) 1 % (0-3) Neutrophils # (Auto) 8.9 x10^3/uL (1.8-7.7) Lymphocytes # (Auto) 1.0 x10^3/uL (1.0-4.8) Monocytes # (Auto) 1.0 x10^3/uL (0.0-1.1) Eosinophils # (Auto) 0.1 x10^3/uL (0.0-0.7) Basophils # (Auto) 0.1 x10^3/uL (0.0-0.2) Sodium Level 138 mmol/L (136-145) Potassium Level 4.6 mmol/L (3.5-5.1) Chloride Level 99 mmol/L (98-107) Carbon Dioxide Level 30 mmol/L (21-32) Anion Gap 9 (6-14) Blood Urea Nitrogen 22 mg/dL (7-20) Creatinine 4.7 mg/dL (0.6-1.0) Estimated GFR (Cockcroft-Gault) 11.2 BUN/Creatinine Ratio 5 (6-20) Glucose Level 230 mg/dL (70-99) Calcium Level 8.3 mg/dL (8.5-10.1) Total Bilirubin 0.3 mg/dL (0.2-1.0) Aspartate Amino Transf (AST/SGOT) 14 U/L (15-37) Alanine Aminotransferase (ALT/SGPT) 18 U/L (14-59) Alkaline Phosphatase 69 U/L (46-116) Total Protein 7.1 g/dL (6.4-8.2) Albumin 2.4 g/dL (3.4-5.0) Albumin/Globulin Ratio 0.5 (1.0-1.7) Test 01/06/19 07:00 01/06/19 07:47 01/06/19 08:00 O2 Saturation 95 % (92-99) Arterial Blood pH 7.26 (7.35-7.45) Arterial Blood pCO2 at Patient Temp 67 mmHg (35-46) Arterial Blood pO2 at Patient Temp 84 mmHg (65-108) Arterial Blood HCO3 29 mmol/L (21-28) Arterial Blood Base Excess 1 mmol/L (-3-3) FiO2 24 Glucose (Fingerstick) 194 mg/dL (70-99) White Blood Count 11.3 x10^3/uL (4.0-11.0) Red Blood Count 2.71 x10^6/uL (3.50-5.40) Hemoglobin 8.7 g/dL (12.0-15.5) Hematocrit 28.3 % (36.0-47.0) Mean Corpuscular Volume 104 fL (79-100) Mean Corpuscular Hemoglobin 32 pg (25-35) Mean Corpuscular Hemoglobin Concent 31 g/dL (31-37) Red Cell Distribution Width 14.8 % (11.5-14.5) Platelet Count 248 x10^3/uL (140-400) Neutrophils (%) (Auto) 79 % (31-73) Lymphocytes (%) (Auto) 9 % (24-48) Monocytes (%) (Auto) 9 % (0-9) Eosinophils (%) (Auto) 1 % (0-3) Basophils (%) (Auto) 1 % (0-3) Neutrophils # (Auto) 8.9 x10^3/uL (1.8-7.7) Lymphocytes # (Auto) 1.1 x10^3/uL (1.0-4.8) Monocytes # (Auto) 1.0 x10^3/uL (0.0-1.1) Eosinophils # (Auto) 0.2 x10^3/uL (0.0-0.7) Basophils # (Auto) 0.1 x10^3/uL (0.0-0.2) Sodium Level 138 mmol/L (136-145) Potassium Level 4.6 mmol/L (3.5-5.1) Chloride Level 100 mmol/L (98-107) Carbon Dioxide Level 31 mmol/L (21-32) Anion Gap 7 (6-14) Blood Urea Nitrogen 25 mg/dL (7-20) Creatinine 5.1 mg/dL (0.6-1.0) Estimated GFR (Cockcroft-Gault) 10.1 BUN/Creatinine Ratio 5 (6-20) Glucose Level 222 mg/dL (70-99) Calcium Level 8.4 mg/dL (8.5-10.1) Total Bilirubin 0.3 mg/dL (0.2-1.0) Aspartate Amino Transf (AST/SGOT) 7 U/L (15-37) Alanine Aminotransferase (ALT/SGPT) 11 U/L (14-59) Alkaline Phosphatase 65 U/L (46-116) Total Protein 7.1 g/dL (6.4-8.2) Albumin 2.2 g/dL (3.4-5.0) Albumin/Globulin Ratio 0.4 (1.0-1.7) Micro AEROBIC RES 1 Final Enterococcus species Enterococcus faecalis 4+ AEROBIC RES 2 Final Mixed skin emre 4+ Performed at: - [facility] [address], [place], [place] [id number] Roll Wrapper: BOBBY Mahajan MD, Phone: [phone] ANTIMICROBIAL SUSCEPTIBILITY Final Comment S = Susceptible; I = Intermediate; R = Resistant P = Positive; N = Negative MICS are expressed in micrograms per mL Antibiotic RSLT#1 RSLT#2 RSLT#3 RSLT#4 Penicillin S =1 Vancomycin S =1 Microbiology 12/27/18 Aerobic Culture - Final, Complete 12/27/18 Aerobic Culture Result 1 (MANPREET) - Final, Complete 12/27/18 Aerobic Culture Result 2 (MANPREET) - Final, Complete 12/27/18 Antimicrobic Susceptibility - Final, Complete 12/27/18 Gram Stain - Final, Complete 12/27/18 Gram Stain Result 1 (MANPREET) - Final, Complete 12/27/18 Gram Stain Result 2 (MANPREET) - Final, Complete 12/27/18 Gram Stain Result 3 (MANPREET) - Final, Complete Objective Assessment Acute resp failure on Bipap and more alert S/p left arm radiocephalic fistula ligation, left 1st finger tip amputation and debridement of the thumb, left 3rd finger debridement 01/03 Left thumb infection, C/S GPC,GPR - mixed skin emre & enterococcus spp 12/27 Left 3rd finger dry eschar Leukocytosis - stable in part reactive with steal. S/p Dexamethasone 01/03 Steal phenomenon End-stage renal disease, on hemodialysis.thru LUE fistula, w/u for steal phenomenon Diabetes mellitus, uncontrolled. History of breast abscess with MSSA, Klebsiella and E. coli 04/2018. PPM in place. Plan Plan of Care Post op wounds are open so will cont cefepime and vanco renal dosing for dialysis local wound care Await further vascular f/u f/u c.s and labs in am Monitor for potential ileus D/w family and nursing KINGSTON HERNANDEZ MD Jan 06, 2019 10:48
[2019-01-06] MEDS: FERROUS SULFATE 325 MG TABLET. PO SCH ×3 (12:00→16:31)
[2019-01-06] MEDS ORDERED: DICLOFENAC SODIUM 1% TOPICAL GEL 100GM TUBE. TP PRN (12:15)
[2019-01-06] MEDS: oxyCODONE IR 5 MG TABLET PO PRN ×3 (12:41→21:11)
[2019-01-06 12:46] LABS: BASE EXCESS ABG 8 mmol/L (-3-3); HCO3 ABG 35 mmol/L (21-28); PO2 ABG 67 mmHg (65-108); SAT O2 ABG 92 % (92-99)
[2019-01-06 12:48] LABS: FIO2 ABG 35; PCO2 ABG 66 mmHg (35-46)
--- NOTE | 2019-01-06 13:12 | NUR ---
SW following pt. Discussed with Physician, pt might transfer to ICU due to difficulty breathing pending blood gas. SW will continue to follow.
--- NOTE | 2019-01-06 14:48 | PDOC ---
SUBJECTIVE ROS Stable OBJECTIVE Vital Signs Vital Signs Date Time Temp Pulse Resp B/P (MAP) Pulse Ox O2 Delivery O2 Flow Rate FiO2 01/06/19 12:49 100 BiPAP/CPAP 01/06/19 12:41 21 01/06/19 07:31 2.0 01/06/19 07:00 97.9 89 92/39 (56) 97.9 I & 0 Intake and Output 01/06/19 07:00 Intake Total 680 ml Balance 680 ml Intake Oral 680 ml # Voids 1 PHYSICAL EXAM Physical Exam General: NAD HEENT: OM moist , On Bipap Lungs: Clear to auscultation, Non labored Heart: Regular rate, Normal S1, Normal S2 Abdomen: Normal bowel sounds, Soft Extremities: No edema , Left hand with vac and dressing in place Skin: No rashes, Neuro: Grossly normal - no Weaver DIAGNOSIS/ASSESSMENT Assessment & Plan ESRD- MMF Dr. Giles , has been on HD for 3-4 years , No RRF Seen on HD, tolerating weel, continue as ordered ?Overmedicated, somnolent ,improved with Bipap Access- Tunneled HDC placed on 12/25 Lt Forearm AVF ligated on 01/03 04/09 steal syndrome Lt thumb infection- On Abx per ID ,Vascular following Fistulogram findings consistent with steal phenomenon. 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 Anemia- RUTH per protocol COMMENT/RELEVANT DATA Meds Current Medications Medications (Trade) Dose Ordered Sig/Becki Start Time Stop Time Status Last Admin Dose Admin Acetaminophen (Tylenol) 500 mg 1X PRN PRN 01/06/19 08:15 01/07/19 08:14 Acetaminophen/ Hydrocodone Bitart (Lortab ) 1 tab PRN Q6HRS PRN 12/27/18 16:30 01/05/19 02:02 1 TAB Albumin Human 200 ml @ 200 mls/hr 1X PRN PRN 12/28/18 08:15 12/28/18 14:14 DC Albuterol Sulfate (Ventolin Neb Soln) 2.5 mg RTQID 12/27/18 20:00 01/06/19 11:15 2.5 MG Aspirin (Children'S Aspirin) 81 mg DAILY 12/28/18 09:00 01/05/19 08:57 81 MG Atorvastatin Calcium (Lipitor) 20 mg HS 12/27/18 21:00 01/05/19 21:47 20 MG Bisacodyl (Dulcolax Supp) 10 mg PRN DAILY PRN 12/27/18 16:30 Budesonide (Pulmicort) 0.5 mg RTBID 12/27/18 20:00 01/06/19 07:28 0.5 MG Calcium Carbonate/ Glycine (Tums) 500 mg PRN Q3HRS PRN 12/27/18 16:30 Carvedilol (Coreg) 3.125 mg BIDWMEALS 12/30/18 09:00 01/05/19 16:25 3.125 MG Cefazolin Sodium 0 ml @ As Directed STK-MED ONCE 01/04/19 12:04 01/04/19 12:05 DC Cefazolin Sodium (Ancef 1gm Ivpb For Omni) 1 gm STK-MED ONCE 01/03/19 16:00 01/04/19 08:42 DC Cefazolin Sodium 1 gm/Dextrose 50 ml @ 100 mls/hr 1X PREOP ONCE 01/03/19 15:45 01/03/19 16:14 UNV Cefazolin Sodium 1 gm/Sodium Chloride 500 ml @ 500 mls/hr 1X ONCE 01/03/19 16:18 01/03/19 17:17 DC 01/03/19 17:05 Cefepime HCl (Maxipime) 1 gm Q24H 12/27/18 18:00 01/05/19 21:39 1 GM Cellulose (Surgicel Fibrillar 1x2) 1 each STK-MED ONCE 01/03/19 16:17 01/03/19 16:17 DC Clonidine HCl (Catapres) 0.1 mg PRN Q1HR PRN 12/27/18 16:30 Dexamethasone Sodium Phosphate (Decadron) 4 mg STK-MED ONCE 01/03/19 18:07 01/03/19 18:07 DC Diclofenac Sodium (Voltaren) 1 charan PRN QID PRN 01/06/19 12:15 Diphenhydramine HCl (Benadryl) 25 mg 1X PRN PRN 01/06/19 08:15 01/07/19 08:14 Docusate Sodium (Colace) 100 mg BID 12/27/18 21:00 01/05/19 21:47 100 MG Ephedrine Sulfate (ePHEDrine PF IN SALINE SYRINGE) 50 mg STK-MED ONCE 01/03/19 18:07 01/03/19 18:07 DC Fentanyl Citrate (Fentanyl 2ml Vial) 100 mcg STK-MED ONCE 01/04/19 12:05 01/04/19 12:05 DC Ferrous Sulfate (Feosol) 325 mg TIDWMEALS 12/27/18 17:00 01/05/19 16:25 325 MG Heparin Sodium (Porcine) (Heparin Sodium) 3,000 unit 1X ONCE 12/29/18 10:30 12/29/18 10:32 DC 12/29/18 10:30 3,000 UNIT Heparin Sodium (Porcine) 5000 unit/Sodium Chloride 505 ml @ 505 mls/hr 1X ONCE 01/03/19 16:17 01/03/19 17:16 DC Heparin Sodium/ Sodium Chloride (HEPARIN for ARTERIAL LINE FLUSH) 1,000 unit 1X ONCE 01/02/19 14:45 01/02/19 15:04 DC 01/02/19 14:45 1,000 UNIT Hydromorphone HCl (Dilaudid) 1 mg PRN Q3HRS PRN 01/04/19 14:00 01/04/19 14:28 1 MG Info (CONTRAST GIVEN -- Rx MONITORING) 1 each PRN DAILY PRN 12/29/18 11:00 12/31/18 10:59 DC Info (PHARMACY MONITORING -- do not chart) 1 each PRN DAILY PRN 01/06/19 08:15 Insulin Glargine (Lantus Syringe) 30 unit QHS 12/31/18 21:00 01/05/19 21:27 30 UNIT Insulin Human Lispro (HumaLOG VIAL for OP,RR ONLY) 0-10 units PRN Q1HR PRN 01/03/19 15:15 01/04/19 15:14 DC 01/03/19 19:14 4 UNIT Insulin Human Lispro (HumaLOG) 10 units TIDWMEALS 01/02/19 07:45 01/05/19 18:02 10 UNITS Iodixanol (Visipaque 320) 100 ml 1X ONCE 01/02/19 14:45 01/02/19 15:04 DC 01/02/19 14:52 114 ML Lactobacillus Rhamnosus (Culturelle) 1 cap BID 12/28/18 21:00 01/05/19 21:47 1 CAP Levothyroxine Sodium (Synthroid) 150 mcg DAILYAC 12/28/18 07:30 01/05/19 08:56 150 MCG Lidocaine HCl (Buffered Lidocaine 1%) 2 ml 1X ONCE 01/02/19 14:45 01/02/19 15:04 DC 01/02/19 14:52 2 ML Lidocaine HCl (Lidocaine Pf 2% Vial) 5 ml STK-MED ONCE 01/03/19 18:07 01/03/19 18:07 DC Lidocaine HCl (Xylocaine-Mpf 1% 2ml Vial) 2 ml PRN 1X PRN 01/03/19 11:00 01/04/19 10:59 DC Lidocaine/ Epinephrine (LIDOCAINE 1%-EPI 1:100,000 Multi-Dose) 20 ml 1X ONCE 01/04/19 12:00 01/04/19 12:04 DC 01/04/19 12:28 8 ML Losartan Potassium (Cozaar) 25 mg DAILY 01/02/19 09:00 01/05/19 08:57 25 MG Magnesium Hydroxide (Milk Of Magnesia) 2,400 mg PRN Q12HR PRN 12/27/18 16:30 01/05/19 08:57 2,400 MG Midazolam HCl (Versed) 2 mg STK-MED ONCE 01/04/19 12:05 01/04/19 12:05 DC Morphine Sulfate (Morphine Sulfate) 2 mg STK-MED ONCE 01/03/19 18:04 01/03/19 18:05 DC Non-Formulary Medication (Albuterol Sulfate (Ventolin Hfa Inhaler)) 2 puff QID 12/27/18 17:00 UNV Non-Formulary Medication (Fluticasone/ Vilanterol (Breo Ellipta 100-25 Mcg Inh)) 1 puff DAILY PRN 12/27/18 16:30 UNV Ondansetron HCl (Zofran) 4 mg STK-MED ONCE 01/03/19 18:07 01/03/19 18:07 DC Oxycodone HCl (Roxicodone) 5 mg PRN Q3HRS PRN 12/27/18 16:30 01/06/19 12:41 5 MG Pantoprazole Sodium (Protonix) 40 mg DAILYAC 12/28/18 07:30 01/05/19 08:57 40 MG Phenylephrine HCl (PHENYLEPHRINE in 0.9% NACL PF) 1 mg STK-MED ONCE 01/03/19 18:07 01/03/19 18:07 DC Prochlorperazine Edisylate (Compazine) 10 mg STK-MED ONCE 01/03/19 18:18 01/03/19 18:18 DC Propofol 20 ml @ As Directed STK-MED ONCE 01/03/19 18:07 01/03/19 18:07 DC Ringer's Solution 1,000 ml @ 30 mls/hr Q24H 01/03/19 10:49 01/03/19 22:48 DC Sevoflurane (Ultane) 60 ml STK-MED ONCE 01/03/19 18:07 01/03/19 18:07 DC Sodium Polystyrene Sulfonate (Kayexalate) 15 gm 1X ONCE 12/28/18 05:45 12/28/18 05:46 DC 12/28/18 05:57 15 GM Sodium Chloride 1,000 ml @ 400 mls/hr Q2H30M PRN 01/06/19 08:10 01/06/19 20:09 Vancomycin HCl (Vanco Per Pharmacy) 1 each PRN DAILY PRN 12/27/18 17:15 01/05/19 14:52 1 EACH Vancomycin HCl (Vancomycin Random Level) 1 each 1X ONCE 01/04/19 06:00 01/04/19 06:01 DC 01/04/19 07:30 1 EACH Vancomycin HCl 1.5 gm/Sodium Chloride 500 ml @ 250 mls/hr 1X ONCE 12/27/18 17:30 12/27/18 19:29 DC 12/27/18 18:02 250 MLS/HR Vancomycin HCl 500 mg/Sodium Chloride 100 ml @ 100 mls/hr QMWF 12/30/18 16:00 01/04/19 18:42 100 MLS/HR Zolpidem Tartrate (Ambien) 5 mg PRN QHS PRN 12/27/18 16:30 Lab Laboratory Tests Test 01/05/19 16:52 01/05/19 21:23 01/06/19 07:00 01/06/19 07:47 Glucose (Fingerstick) 220 mg/dL (70-99) 202 mg/dL (70-99) 194 mg/dL (70-99) O2 Saturation 95 % (92-99) Arterial Blood pH 7.26 (7.35-7.45) Arterial Blood pCO2 at Patient Temp 67 mmHg (35-46) Arterial Blood pO2 at Patient Temp 84 mmHg (65-108) Arterial Blood HCO3 29 mmol/L (21-28) Arterial Blood Base Excess 1 mmol/L (-3-3) FiO2 24 Test 01/06/19 08:00 01/06/19 12:19 01/06/19 12:43 White Blood Count 11.3 x10^3/uL (4.0-11.0) Red Blood Count 2.71 x10^6/uL (3.50-5.40) Hemoglobin 8.7 g/dL (12.0-15.5) Hematocrit 28.3 % (36.0-47.0) Mean Corpuscular Volume 104 fL (79-100) Mean Corpuscular Hemoglobin 32 pg (25-35) Mean Corpuscular Hemoglobin Concent 31 g/dL (31-37) Red Cell Distribution Width 14.8 % (11.5-14.5) Platelet Count 248 x10^3/uL (140-400) Neutrophils (%) (Auto) 79 % (31-73) Lymphocytes (%) (Auto) 9 % (24-48) Monocytes (%) (Auto) 9 % (0-9) Eosinophils (%) (Auto) 1 % (0-3) Basophils (%) (Auto) 1 % (0-3) Neutrophils # (Auto) 8.9 x10^3/uL (1.8-7.7) Lymphocytes # (Auto) 1.1 x10^3/uL (1.0-4.8) Monocytes # (Auto) 1.0 x10^3/uL (0.0-1.1) Eosinophils # (Auto) 0.2 x10^3/uL (0.0-0.7) Basophils # (Auto) 0.1 x10^3/uL (0.0-0.2) Sodium Level 138 mmol/L (136-145) Potassium Level 4.6 mmol/L (3.5-5.1) Chloride Level 100 mmol/L (98-107) Carbon Dioxide Level 31 mmol/L (21-32) Anion Gap 7 (6-14) Blood Urea Nitrogen 25 mg/dL (7-20) Creatinine 5.1 mg/dL (0.6-1.0) Estimated GFR (Cockcroft-Gault) 10.1 BUN/Creatinine Ratio 5 (6-20) Glucose Level 222 mg/dL (70-99) Calcium Level 8.4 mg/dL (8.5-10.1) Total Bilirubin 0.3 mg/dL (0.2-1.0) Aspartate Amino Transf (AST/SGOT) 7 U/L (15-37) Alanine Aminotransferase (ALT/SGPT) 11 U/L (14-59) Alkaline Phosphatase 65 U/L (46-116) Total Protein 7.1 g/dL (6.4-8.2) Albumin 2.2 g/dL (3.4-5.0) Albumin/Globulin Ratio 0.4 (1.0-1.7) Glucose (Fingerstick) 146 mg/dL (70-99) O2 Saturation 92 % (92-99) Arterial Blood pH 7.34 (7.35-7.45) Arterial Blood pCO2 at Patient Temp 66 mmHg (35-46) Arterial Blood pO2 at Patient Temp 67 mmHg (65-108) Arterial Blood HCO3 35 mmol/L (21-28) Arterial Blood Base Excess 8 mmol/L (-3-3) FiO2 35 Results All relevant outside records, renal labs, imaging studies, telemetry/EKG's were reviewed. RANI ERICKSON MD Jan 06, 2019 14:48
[2019-01-06 15:00] VITALS: BP 115/43
--- NOTE | 2019-01-06 15:56 | PDOC ---
PROGRESS NOTES Chief Complaint Chief Complaint 1. Cellulitis left thumb, unroofed at Wound clinic, r.o osteomyelitis 2. ischemic left hand, STEAL PHENOMENON on imaging Tunneled hemodialysis catheter placement as described. This catheter demonstrates excellent manual flow rates and is suitable for use immediately. 3. 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 Monica Silver Surgery: left arm radiocephalic fistula ligation, left 1st finger tip amputation and debridement of the thumb, left 3rd finger debridement Blood loss: 10ml Anesthesia: general 3. Left arm AV fistula 4. LEft third middle finger resolving cellulitis (reported self manipulation ) with eschar formation 5. ESRD MWF HD 6. AOCD 7. MAXIMILIAN< Obesity, hypothyroidism, HTN, CAD hx, lipids- chronic stable 8. LABILE BP 9. Indwelling ICD 10 LABILE DM 11. 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 on cefepime and vanco renal dosing for dialysis local wound care 36 min pt exam, chart review, > 50% of time with exam, chart review, pt care coordination History of Present Illness History of Present Illness lethargy and dyspnea after dialysis today, acute respiratory distress and required Bipap for a time, considered ICU transfer, but patient imrpoved, 2 family members in room, discussed with both, wound vac to left hand, looks improed, cont current Vitals Vitals Vital Signs Date Time Temp Pulse Resp B/P (MAP) Pulse Ox O2 Delivery O2 Flow Rate FiO2 01/06/19 15:41 100 BiPAP/CPAP 01/06/19 12:41 21 01/06/19 07:31 2.0 01/06/19 07:00 97.9 89 92/39 (56) 97.9 Physical Exam Physical Exam GENERAL: Propped up in bed, alert - NAD on Bipap HEENT: nml NECK: Supple LUNGS: Clear bilaterally. HEART: S1, S2. ABDOMEN: Soft, obese. Decreased Bowel sounds, nontender but some distension. EXTREMITIES: Edema present, chronic. DERMATOLOGIC: Left hand with vac and dressing in place NEUROLOGIC: Alert, answers questions R chest HD cath - clean General: Alert, Oriented X3, Cooperative, No acute distress, Other Heart: Regular rate, Normal S1, Normal S2, No murmurs Lungs: Clear Abdomen: Normal bowel sounds, Soft, No tenderness Extremities: Other Skin: Other Labs LABS Laboratory Tests Test 01/05/19 16:52 01/05/19 21:23 01/06/19 07:00 01/06/19 07:47 Glucose (Fingerstick) 220 mg/dL (70-99) 202 mg/dL (70-99) 194 mg/dL (70-99) O2 Saturation 95 % (92-99) Arterial Blood pH 7.26 (7.35-7.45) Arterial Blood pCO2 at Patient Temp 67 mmHg (35-46) Arterial Blood pO2 at Patient Temp 84 mmHg (65-108) Arterial Blood HCO3 29 mmol/L (21-28) Arterial Blood Base Excess 1 mmol/L (-3-3) FiO2 24 Test 01/06/19 08:00 01/06/19 12:19 01/06/19 12:43 White Blood Count 11.3 x10^3/uL (4.0-11.0) Red Blood Count 2.71 x10^6/uL (3.50-5.40) Hemoglobin 8.7 g/dL (12.0-15.5) Hematocrit 28.3 % (36.0-47.0) Mean Corpuscular Volume 104 fL (79-100) Mean Corpuscular Hemoglobin 32 pg (25-35) Mean Corpuscular Hemoglobin Concent 31 g/dL (31-37) Red Cell Distribution Width 14.8 % (11.5-14.5) Platelet Count 248 x10^3/uL (140-400) Neutrophils (%) (Auto) 79 % (31-73) Lymphocytes (%) (Auto) 9 % (24-48) Monocytes (%) (Auto) 9 % (0-9) Eosinophils (%) (Auto) 1 % (0-3) Basophils (%) (Auto) 1 % (0-3) Neutrophils # (Auto) 8.9 x10^3/uL (1.8-7.7) Lymphocytes # (Auto) 1.1 x10^3/uL (1.0-4.8) Monocytes # (Auto) 1.0 x10^3/uL (0.0-1.1) Eosinophils # (Auto) 0.2 x10^3/uL (0.0-0.7) Basophils # (Auto) 0.1 x10^3/uL (0.0-0.2) Sodium Level 138 mmol/L (136-145) Potassium Level 4.6 mmol/L (3.5-5.1) Chloride Level 100 mmol/L (98-107) Carbon Dioxide Level 31 mmol/L (21-32) Anion Gap 7 (6-14) Blood Urea Nitrogen 25 mg/dL (7-20) Creatinine 5.1 mg/dL (0.6-1.0) Estimated GFR (Cockcroft-Gault) 10.1 BUN/Creatinine Ratio 5 (6-20) Glucose Level 222 mg/dL (70-99) Calcium Level 8.4 mg/dL (8.5-10.1) Total Bilirubin 0.3 mg/dL (0.2-1.0) Aspartate Amino Transf (AST/SGOT) 7 U/L (15-37) Alanine Aminotransferase (ALT/SGPT) 11 U/L (14-59) Alkaline Phosphatase 65 U/L (46-116) Total Protein 7.1 g/dL (6.4-8.2) Albumin 2.2 g/dL (3.4-5.0) Albumin/Globulin Ratio 0.4 (1.0-1.7) Glucose (Fingerstick) 146 mg/dL (70-99) O2 Saturation 92 % (92-99) Arterial Blood pH 7.34 (7.35-7.45) Arterial Blood pCO2 at Patient Temp 66 mmHg (35-46) Arterial Blood pO2 at Patient Temp 67 mmHg (65-108) Arterial Blood HCO3 35 mmol/L (21-28) Arterial Blood Base Excess 8 mmol/L (-3-3) FiO2 35 Comment Review of Relevant I have reviewed the following items filippo (where applicable) has been applied. Labs Laboratory Tests Test 01/04/19 16:18 01/04/19 21:16 01/05/19 07:51 01/05/19 11:48 Glucose (Fingerstick) 127 mg/dL (70-99) 180 mg/dL (70-99) 210 mg/dL (70-99) 233 mg/dL (70-99) Test 01/05/19 11:54 01/05/19 16:52 01/05/19 21:23 01/06/19 07:00 White Blood Count 11.0 x10^3/uL (4.0-11.0) Red Blood Count 2.98 x10^6/uL (3.50-5.40) Hemoglobin 9.4 g/dL (12.0-15.5) Hematocrit 30.8 % (36.0-47.0) Mean Corpuscular Volume 103 fL (79-100) Mean Corpuscular Hemoglobin 32 pg (25-35) Mean Corpuscular Hemoglobin Concent 31 g/dL (31-37) Red Cell Distribution Width 15.4 % (11.5-14.5) Platelet Count 262 x10^3/uL (140-400) Neutrophils (%) (Auto) 81 % (31-73) Lymphocytes (%) (Auto) 9 % (24-48) Monocytes (%) (Auto) 9 % (0-9) Eosinophils (%) (Auto) 1 % (0-3) Basophils (%) (Auto) 1 % (0-3) Neutrophils # (Auto) 8.9 x10^3/uL (1.8-7.7) Lymphocytes # (Auto) 1.0 x10^3/uL (1.0-4.8) Monocytes # (Auto) 1.0 x10^3/uL (0.0-1.1) Eosinophils # (Auto) 0.1 x10^3/uL (0.0-0.7) Basophils # (Auto) 0.1 x10^3/uL (0.0-0.2) Sodium Level 138 mmol/L (136-145) Potassium Level 4.6 mmol/L (3.5-5.1) Chloride Level 99 mmol/L (98-107) Carbon Dioxide Level 30 mmol/L (21-32) Anion Gap 9 (6-14) Blood Urea Nitrogen 22 mg/dL (7-20) Creatinine 4.7 mg/dL (0.6-1.0) Estimated GFR (Cockcroft-Gault) 11.2 BUN/Creatinine Ratio 5 (6-20) Glucose Level 230 mg/dL (70-99) Calcium Level 8.3 mg/dL (8.5-10.1) Total Bilirubin 0.3 mg/dL (0.2-1.0) Aspartate Amino Transf (AST/SGOT) 14 U/L (15-37) Alanine Aminotransferase (ALT/SGPT) 18 U/L (14-59) Alkaline Phosphatase 69 U/L (46-116) Total Protein 7.1 g/dL (6.4-8.2) Albumin 2.4 g/dL (3.4-5.0) Albumin/Globulin Ratio 0.5 (1.0-1.7) Glucose (Fingerstick) 220 mg/dL (70-99) 202 mg/dL (70-99) O2 Saturation 95 % (92-99) Arterial Blood pH 7.26 (7.35-7.45) Arterial Blood pCO2 at Patient Temp 67 mmHg (35-46) Arterial Blood pO2 at Patient Temp 84 mmHg (65-108) Arterial Blood HCO3 29 mmol/L (21-28) Arterial Blood Base Excess 1 mmol/L (-3-3) FiO2 24 Test 01/06/19 07:47 01/06/19 08:00 01/06/19 12:19 01/06/19 12:43 Glucose (Fingerstick) 194 mg/dL (70-99) 146 mg/dL (70-99) White Blood Count 11.3 x10^3/uL (4.0-11.0) Red Blood Count 2.71 x10^6/uL (3.50-5.40) Hemoglobin 8.7 g/dL (12.0-15.5) Hematocrit 28.3 % (36.0-47.0) Mean Corpuscular Volume 104 fL (79-100) Mean Corpuscular Hemoglobin 32 pg (25-35) Mean Corpuscular Hemoglobin Concent 31 g/dL (31-37) Red Cell Distribution Width 14.8 % (11.5-14.5) Platelet Count 248 x10^3/uL (140-400) Neutrophils (%) (Auto) 79 % (31-73) Lymphocytes (%) (Auto) 9 % (24-48) Monocytes (%) (Auto) 9 % (0-9) Eosinophils (%) (Auto) 1 % (0-3) Basophils (%) (Auto) 1 % (0-3) Neutrophils # (Auto) 8.9 x10^3/uL (1.8-7.7) Lymphocytes # (Auto) 1.1 x10^3/uL (1.0-4.8) Monocytes # (Auto) 1.0 x10^3/uL (0.0-1.1) Eosinophils # (Auto) 0.2 x10^3/uL (0.0-0.7) Basophils # (Auto) 0.1 x10^3/uL (0.0-0.2) Sodium Level 138 mmol/L (136-145) Potassium Level 4.6 mmol/L (3.5-5.1) Chloride Level 100 mmol/L (98-107) Carbon Dioxide Level 31 mmol/L (21-32) Anion Gap 7 (6-14) Blood Urea Nitrogen 25 mg/dL (7-20) Creatinine 5.1 mg/dL (0.6-1.0) Estimated GFR (Cockcroft-Gault) 10.1 BUN/Creatinine Ratio 5 (6-20) Glucose Level 222 mg/dL (70-99) Calcium Level 8.4 mg/dL (8.5-10.1) Total Bilirubin 0.3 mg/dL (0.2-1.0) Aspartate Amino Transf (AST/SGOT) 7 U/L (15-37) Alanine Aminotransferase (ALT/SGPT) 11 U/L (14-59) Alkaline Phosphatase 65 U/L (46-116) Total Protein 7.1 g/dL (6.4-8.2) Albumin 2.2 g/dL (3.4-5.0) Albumin/Globulin Ratio 0.4 (1.0-1.7) O2 Saturation 92 % (92-99) Arterial Blood pH 7.34 (7.35-7.45) Arterial Blood pCO2 at Patient Temp 66 mmHg (35-46) Arterial Blood pO2 at Patient Temp 67 mmHg (65-108) Arterial Blood HCO3 35 mmol/L (21-28) Arterial Blood Base Excess 8 mmol/L (-3-3) FiO2 35 Laboratory Tests Test 01/05/19 16:52 01/05/19 21:23 01/06/19 07:00 01/06/19 07:47 Glucose (Fingerstick) 220 mg/dL (70-99) 202 mg/dL (70-99) 194 mg/dL (70-99) O2 Saturation 95 % (92-99) Arterial Blood pH 7.26 (7.35-7.45) Arterial Blood pCO2 at Patient Temp 67 mmHg (35-46) Arterial Blood pO2 at Patient Temp 84 mmHg (65-108) Arterial Blood HCO3 29 mmol/L (21-28) Arterial Blood Base Excess 1 mmol/L (-3-3) FiO2 24 Test 01/06/19 08:00 01/06/19 12:19 01/06/19 12:43 White Blood Count 11.3 x10^3/uL (4.0-11.0) Red Blood Count 2.71 x10^6/uL (3.50-5.40) Hemoglobin 8.7 g/dL (12.0-15.5) Hematocrit 28.3 % (36.0-47.0) Mean Corpuscular Volume 104 fL (79-100) Mean Corpuscular Hemoglobin 32 pg (25-35) Mean Corpuscular Hemoglobin Concent 31 g/dL (31-37) Red Cell Distribution Width 14.8 % (11.5-14.5) Platelet Count 248 x10^3/uL (140-400) Neutrophils (%) (Auto) 79 % (31-73) Lymphocytes (%) (Auto) 9 % (24-48) Monocytes (%) (Auto) 9 % (0-9) Eosinophils (%) (Auto) 1 % (0-3) Basophils (%) (Auto) 1 % (0-3) Neutrophils # (Auto) 8.9 x10^3/uL (1.8-7.7) Lymphocytes # (Auto) 1.1 x10^3/uL (1.0-4.8) Monocytes # (Auto) 1.0 x10^3/uL (0.0-1.1) Eosinophils # (Auto) 0.2 x10^3/uL (0.0-0.7) Basophils # (Auto) 0.1 x10^3/uL (0.0-0.2) Sodium Level 138 mmol/L (136-145) Potassium Level 4.6 mmol/L (3.5-5.1) Chloride Level 100 mmol/L (98-107) Carbon Dioxide Level 31 mmol/L (21-32) Anion Gap 7 (6-14) Blood Urea Nitrogen 25 mg/dL (7-20) Creatinine 5.1 mg/dL (0.6-1.0) Estimated GFR (Cockcroft-Gault) 10.1 BUN/Creatinine Ratio 5 (6-20) Glucose Level 222 mg/dL (70-99) Calcium Level 8.4 mg/dL (8.5-10.1) Total Bilirubin 0.3 mg/dL (0.2-1.0) Aspartate Amino Transf (AST/SGOT) 7 U/L (15-37) Alanine Aminotransferase (ALT/SGPT) 11 U/L (14-59) Alkaline Phosphatase 65 U/L (46-116) Total Protein 7.1 g/dL (6.4-8.2) Albumin 2.2 g/dL (3.4-5.0) Albumin/Globulin Ratio 0.4 (1.0-1.7) Glucose (Fingerstick) 146 mg/dL (70-99) O2 Saturation 92 % (92-99) Arterial Blood pH 7.34 (7.35-7.45) Arterial Blood pCO2 at Patient Temp 66 mmHg (35-46) Arterial Blood pO2 at Patient Temp 67 mmHg (65-108) Arterial Blood HCO3 35 mmol/L (21-28) Arterial Blood Base Excess 8 mmol/L (-3-3) FiO2 35 Microbiology 12/27/18 Aerobic Culture - Final, Complete 12/27/18 Aerobic Culture Result 1 (MANPREET) - Final, Complete 12/27/18 Aerobic Culture Result 2 (MANPREET) - Final, Complete 12/27/18 Antimicrobic Susceptibility - Final, Complete 12/27/18 Gram Stain - Final, Complete 12/27/18 Gram Stain Result 1 (MANPREET) - Final, Complete 12/27/18 Gram Stain Result 2 (MANPREET) - Final, Complete 12/27/18 Gram Stain Result 3 (MANPREET) - Final, Complete Medications Current Medications Ondansetron HCl (Zofran) 4 mg PRN Q6HRS PRN IV NAUSEA/VOMITING Last administered on 01/05/19at 16:25; Start 12/27/18 at 16:30 Calcium Carbonate/ Glycine (Tums) 500 mg PRN Q3HRS PRN PO UPSET STOMACH; Start 12/27/18 at 16:30 Zolpidem Tartrate (Ambien) 5 mg PRN QHS PRN PO INSOMNIA, MAY REPEAT IN 1HR; Start 12/27/18 at 16:30 Oxycodone HCl (Roxicodone) 5 mg PRN Q3HRS PRN PO BREAKTHROUGH PAIN Last administered on 01/06/19at 12:41; Start 12/27/18 at 16:30 Morphine Sulfate (Morphine Sulfate) 1 mg PRN Q1HR PRN IV PAIN; Start 12/27/18 at 16:30; Stop 12/27/18 at 16:39; Status DC Acetaminophen (Tylenol) 650 mg PRN Q6HRS PRN PO Headaches, Temp > 101.5F; Start 12/27/18 at 16:30 Docusate Sodium (Colace) 100 mg BID PO Last administered on 01/05/19at 21:47; Start 12/27/18 at 21:00 Magnesium Hydroxide (Milk Of Magnesia) 2,400 mg PRN Q12HR PRN PO CONSTIPATION Last administered on 01/05/19at 08:57; Start 12/27/18 at 16:30 Bisacodyl (Dulcolax Supp) 10 mg PRN DAILY PRN RI CONSTIPATION; Start 12/27/18 at 16:30 Ondansetron HCl (Zofran) 4 mg PRN Q6HRS PRN IVP NAUSEA/VOMITING; Start 12/27/18 at 16:30; Stop 12/28/18 at 11:31; Status DC Clonidine HCl (Catapres) 0.1 mg PRN Q1HR PRN PO HYPERTENSION; Start 12/27/18 at 16:30 Aspirin (Children'S Aspirin) 81 mg DAILY PO Last administered on 01/05/19at 08:57; Start 12/28/18 at 09:00 Atorvastatin Calcium (Lipitor) 20 mg HS PO Last administered on 01/05/19at 21:47; Start 12/27/18 at 21:00 Carvedilol (Coreg) 6.25 mg BIDWMEALS PO Last administered on 12/29/18at 17:39; Start 12/27/18 at 17:00; Stop 12/30/18 at 09:02; Status DC Diclofenac Sodium (Voltaren) 100 charan PRN QID PRN TP PAIN; Start 12/27/18 at 16:30; Stop 01/06/19 at 12:11; Status DC Ferrous Sulfate (Feosol) 325 mg TIDWMEALS PO Last administered on 01/05/19at 16:25; Start 12/27/18 at 17:00 Acetaminophen/ Hydrocodone Bitart (Lortab 10/325) 1 tab PRN Q6HRS PRN PO MODERATE PAIN Last administered on 01/05/19 02:02; Start 12/27/18 at 16:30 Levothyroxine Sodium (Synthroid) 150 mcg DAILYAC PO Last administered on 01/05/19 08:56; Start 12/28/18 at 07:30 Losartan Potassium (Cozaar) 25 mg DAILY PO ; Start 12/28/18 at 09:00; Stop 12/31/18 at 09:09; Status DC Non-Formulary Medication (Albuterol Sulfate (Ventolin Hfa Inhaler)) 2 puff QID INH ; Start 12/27/18 at 17:00; Status UNV Non-Formulary Medication (Fluticasone/ Vilanterol (Breo Ellipta 100-25 Mcg Inh)) 1 puff DAILY PRN IH daily; Start 12/27/18 at 16:30; Status UNV Insulin Human Lispro (HumaLOG) 10 units TIDWMEALS SQ Last administered on 12/30/18 20:05; Start 12/27/18 at 17:30; Stop 12/31/18 at 07:32; Status DC Pantoprazole Sodium (Protonix) 40 mg DAILYAC PO Last administered on 01/05/19 08:57; Start 12/28/18 at 07:30 Albuterol Sulfate (Ventolin Neb Soln) 2.5 mg RTQID NEB Last administered on 01/06/19 11:15; Start 12/27/18 at 20:00 Budesonide (Pulmicort) 0.5 mg RTBID NEB Last administered on 01/06/19 07:28; Start 12/27/18 at 20:00 Morphine Sulfate (Morphine Sulfate) 2 mg PRN Q2HR PRN IV MODERATE PAIN Last administered on 01/04/19 13:26; Start 12/27/18 at 16:45 Cefepime HCl (Maxipime) 1 gm Q24H IVP Last administered on 01/05/19 21:39; Start 12/27/18 at 18:00 Vancomycin HCl (Vanco Per Pharmacy) 1 each PRN DAILY PRN MC SEE COMMENTS Last administered on 10/31/19at 14:52; Start 12/27/18 at 17:15 Vancomycin HCl 1.5 gm/Sodium Chloride 500 ml @ 250 mls/hr 1X ONCE IV Last administered on 12/27/18at 18:02; Start 12/27/18 at 17:30; Stop 12/27/18 at 19:29; Status DC Vancomycin HCl (Vancomycin Random Level) 1 each 1X ONCE MC Last administered on 12/28/18at 06:00; Start 12/28/18 at 06:00; Stop 12/28/18 at 06:01; Status DC Sodium Polystyrene Sulfonate (Kayexalate) 15 gm 1X ONCE PO Last administered on 12/28/18at 05:57; Start 12/28/18 at 05:45; Stop 12/28/18 at 05:46; Status DC Sodium Chloride 1,000 ml @ 1,000 mls/hr Q1H PRN IV hypotension; Start 12/28/18 at 08:10; Stop 12/28/18 at 14:09; Status DC Albumin Human 200 ml @ 200 mls/hr 1X PRN PRN IV Hypotension; Start 12/28/18 at 08:15; Stop 12/28/18 at 14:14; Status DC Acetaminophen (Tylenol) 500 mg 1X PRN PRN PO MILD PAIN / TEMP; Start 12/28/18 at 08:15; Stop 12/29/18 at 08:14; Status DC Diphenhydramine HCl (Benadryl) 25 mg 1X PRN PRN IV ITCHING; Start 12/28/18 at 08:15; Stop 12/29/18 at 08:14; Status DC Diphenhydramine HCl (Benadryl) 25 mg 1X PRN PRN IV ITCHING; Start 12/28/18 at 08:15; Stop 12/29/18 at 08:14; Status DC Sodium Chloride 1,000 ml @ 400 mls/hr Q2H30M PRN IV PATENCY; Start 12/28/18 at 08:10; Stop 12/28/18 at 20:09; Status DC Info (PHARMACY MONITORING -- do not chart) 1 each PRN DAILY PRN MC SEE COMMENTS; Start 12/28/18 at 08:15; Stop 12/30/18 at 13:48; Status DC Vancomycin HCl 500 mg/Sodium Chloride 100 ml @ 100 mls/hr QMWF IV Last administered on 01/04/19at 18:42; Start 12/30/18 at 16:00 Lactobacillus Rhamnosus (Culturelle) 1 cap BID PO Last administered on 01/05/19at 21:47; Start 12/28/18 at 21:00 Iodixanol (Visipaque 320) 100 ml STK-MED ONCE .ROUTE ; Start 12/29/18 at 09:27; Stop 12/29/18 at 09:27; Status DC Lidocaine HCl (Buffered Lidocaine 1%) 3 ml STK-MED ONCE .ROUTE ; Start 12/29/18 at 09:27; Stop 12/29/18 at 09:27; Status DC Heparin Sodium/ Sodium Chloride 500 ml @ As Directed STK-MED ONCE .ROUTE ; Start 12/29/18 at 09:27; Stop 12/29/18 at 09:27; Status DC Midazolam HCl (Versed) 2 mg STK-MED ONCE .ROUTE ; Start 12/29/18 at 09:29; Stop 12/29/18 at 09:29; Status DC Fentanyl Citrate (Fentanyl 2ml Vial) 100 mcg STK-MED ONCE .ROUTE ; Start 12/29 at 09:29; Stop 12/29/18 at 09:29; Status DC Heparin Sodium (Porcine) (Heparin Sodium) 10,000 unit STK-MED ONCE .ROUTE ; S tart 12/29/18 at 09:29; Stop 12/29/18 at 09:30; Status DC Heparin Sodium/ Sodium Chloride (HEPARIN for ARTERIAL LINE FLUSH) 1,000 unit 1X ONCE IART Last administered on 12/29/18at 10:00; Start 12/29/18 at 10:00; Stop 12/29/18 at 10:01; Status DC Lidocaine HCl (Buffered Lidocaine 1%) 3 ml 1X ONCE IJ Last administered on 12/29/18at 10:00; Start 12/29/18 at 10:00; Stop 12/29/18 at 10:01; Status DC Midazolam HCl (Versed) 2 mg 1X ONCE IV Last administered on 12/29/18at 10:00; Start 12/29/18 at 10:00; Stop 12/29/18 at 10:01; Status DC Fentanyl Citrate (Fentanyl 2ml Vial) 100 mcg 1X ONCE IV Last administered on 12/29/18at 10:00; Start 12/29/18 at 10:00; Stop 12/29/18 at 10:01; Status DC Iodixanol (Visipaque 320) 100 ml 1X ONCE IART Last administered on 12/29/18at 10:00; Start 12/29/18 at 10:00; Stop 12/29/18 at 10:01; Status DC Heparin Sodium (Porcine) (Heparin Sodium) 3,000 unit 1X ONCE IV Last administered on 12/29/18at 10:30; Start 12/29/18 at 10:30; Stop 12/29/18 at 10:32; Status DC Iodixanol (Visipaque 320) 50 ml STK-MED ONCE .ROUTE ; Start 12/29/18 at 10:43; Stop 12/29/18 at 10:43; Status DC Iodixanol (Visipaque 320) 50 ml 1X ONCE IART Last administered on 12/29/18at 10:45; Start 12/29/18 at 10:45; Stop 12/29/18 at 10:46; Status DC Info (CONTRAST GIVEN -- Rx MONITORING) 1 each PRN DAILY PRN MC SEE COMMENTS; Start 12/29/18 at 11:00; Stop 12/31/18 at 10:59; Status DC Carvedilol (Coreg) 3.125 mg BIDWMEALS PO Last administered on 01/05/19at 16:25; Start 12/30/18 at 09:00 Insulin Glargine (Lantus Syringe) 20 unit QHS SQ Last administered on 12/30/18at 21:00; Start 12/30/18 at 21:00; Stop 12/31/18 at 07:32; Status DC Insulin Glargine (Lantus Syringe) 10 unit ONCE ONCE SQ Last administered on 12/30/18at 09:48; Start 12/30/18 at 10:00; Stop 12/30/18 at 10:01; Status DC Sodium Chloride 1,000 ml @ 1,000 mls/hr Q1H PRN IV hypotension; Start 12/30/18 at 12:21; Stop 12/30/18 at 18:20; Status DC Diphenhydramine HCl (Benadryl) 25 mg 1X PRN PRN IV ITCHING; Start 12/30/18 at 12:30; Stop 12/31/18 at 12:29; Status DC Diphenhydramine HCl (Benadryl) 25 mg 1X PRN PRN IV ITCHING; Start 12/30/18 at 12:30; Stop 12/31/18 at 12:29; Status DC Sodium Chloride 1,000 ml @ 400 mls/hr Q2H30M PRN IV PATENCY; Start 12/30/18 at 12:21; Stop 12/31/18 at 00:20; Status DC Info (PHARMACY MONITORING -- do not chart) 1 each PRN DAILY PRN MC SEE COMMENTS; Start 12/30/18 at 12:30; Stop 01/04/19 at 14:19; Status DC Insulin Human Lispro (HumaLOG) 15 units 1X ONCE SQ Last administered on 12/30/18at 22:59; Start 12/30/18 at 23:00; Stop 12/30/18 at 23:01; Status DC Insulin Glargine (Lantus Syringe) 30 unit QHS SQ Last administered on 01/05/19at 21:27; Start 12/31/18 at 21:00 Insulin Human Lispro (HumaLOG) 15 units TIDWMEALS SQ Last administered on 01/01/19at 08:22; Start 12/31/18 at 08:00; Stop 01/01/19 at 08:35; Status DC Insulin Human Lispro (HumaLOG) 8 units TIDWMEALS SQ Last administered on 01/01/19at 16:52; Start 01/01/19 at 12:00; Stop 01/02/19 at 07:40; Status DC Insulin Human Lispro (HumaLOG) 12 units 1X ONCE SQ Last administered on 01/01/19at 21:14; Start 01/01/19 at 21:00; Stop 01/01/19 at 21:01; Status DC Losartan Potassium (Cozaar) 25 mg DAILY PO Last administered on 01/05/19at 08:57; Start 01/02/19 at 09:00 Insulin Human Lispro (HumaLOG) 10 units TIDWMEALS SQ Last administered on 01/05/19at 18:02; Start 01/02/19 at 07:45 Sodium Chloride 1,000 ml @ 1,000 mls/hr Q1H PRN IV hypotension; Start 01/02/19 at 08:18; Stop 01/02/19 at 14:17; Status DC Acetaminophen (Tylenol) 500 mg 1X PRN PRN PO MILD PAIN / TEMP; Start 01/02/19 at 08:30; Stop 01/03/19 at 08:29; Status DC Diphenhydramine HCl (Benadryl) 25 mg 1X PRN PRN IV ITCHING; Start 01/02/19 at 08:30; Stop 01/03/19 at 08:29; Status DC Diphenhydramine HCl (Benadryl) 25 mg 1X PRN PRN IV ITCHING; Start 01/02/19 at 08:30; Stop 01/03/19 at 08:29; Status DC Sodium Chloride 1,000 ml @ 400 mls/hr Q2H30M PRN IV PATENCY; Start 01/02/19 at 08:18; Stop 01/02/19 at 20:17; Status DC Info (PHARMACY MONITORING -- do not chart) 1 each PRN DAILY PRN MC SEE COMMENTS; Start 01/02/19 at 08:30; Status UNV Vancomycin HCl (Vancomycin Random Level) 1 each 1X ONCE MC Last administered on 01/04/19at 07:30; Start 01/04/19 at 06:00; Stop 01/04/19 at 06:01; Status DC Iodixanol (Visipaque 320) 100 ml STK-MED ONCE .ROUTE ; Start 01/02/19 at 13:20; Stop 01/02/19 at 13:20; Status DC Lidocaine HCl (Buffered Lidocaine 1%) 3 ml STK-MED ONCE .ROUTE ; Start 01/02/19 at 13:20; Stop 01/02/19 at 13:21; Status DC Heparin Sodium/ Sodium Chloride 1,000 ml @ As Directed STK-MED ONCE .ROUTE ; Start 01/02/19 at 13:21; Stop 01/02/19 at 13:21; Status DC Midazolam HCl (Versed) 2 mg STK-MED ONCE .ROUTE ; Start 01/02/19 at 13:52; Stop 01/02/19 at 13:53; Status DC Fentanyl Citrate (Fentanyl 2ml Vial) 100 mcg STK-MED ONCE .ROUTE ; Start 01/02/19 at 13:52; Stop 01/02/19 at 13:53; Status DC Iodixanol (Visipaque 320) 100 ml STK-MED ONCE .ROUTE ; Start 01/02/19 at 14:22; Stop 01/02/19 at 14:22; Status DC Heparin Sodium/ Sodium Chloride (HEPARIN for ARTERIAL LINE FLUSH) 1,000 unit 1X ONCE IART Last administered on 01/02/19at 14:51; Start 01/02/19 at 14:45; Stop 01/02/19 at 15:04; Status DC Heparin Sodium/ Sodium Chloride (HEPARIN for ARTERIAL LINE FLUSH) 1,000 unit 1X ONCE IART Last administered on 01/02/19at 14:45; Start 01/02/19 at 14:45; Stop 01/02/19 at 15:04; Status DC Lidocaine HCl (Buffered Lidocaine 1%) 2 ml 1X ONCE IJ Last administered on 01/02/19at 14:52; Start 01/02/19 at 14:45; Stop 01/02/19 at 15:04; Status DC Midazolam HCl (Versed) 1 mg 1X ONCE IV Last administered on 01/02/19at 14:52; Start 01/02/19 at 14:45; Stop 01/02/19 at 15:04; Status DC Fentanyl Citrate (Fentanyl 2ml Vial) 25 mcg 1X ONCE IV Last administered on 01/02/19at 14:53; Start 01/02/19 at 14:45; Stop 01/02/19 at 15:04; Status DC Iodixanol (Visipaque 320) 100 ml 1X ONCE IART Last administered on 01/02/19at 14:52; Start 01/02/19 at 14:45; Stop 01/02/19 at 15:04; Status DC Ondansetron HCl (Zofran) 4 mg PRN Q6HRS PRN IV NAUSEA/VOMITING; Start 01/03/19 at 11:00; Stop 01/04/19 at 10:59; Status DC Morphine Sulfate (Morphine Sulfate) 1 mg PRN Q10MIN PRN IV SEVERE PAIN 7-10; Start 01/03/19 at 11:00; Stop 01/04/19 at 10:59; Status DC Ringer's Solution 1,000 ml @ 30 mls/hr Q24H IV ; Start 01/03/19 at 10:49; Stop 01/03/19 at 22:48; Status DC Lidocaine HCl (Xylocaine-Mpf 1% 2ml Vial) 2 ml PRN 1X PRN ID PRIOR TO IV START; Start 01/03/19 at 11:00; Stop 01/04/19 at 10:59; Status DC Hydromorphone HCl (Dilaudid) 0.5 mg PRN Q10MIN PRN IV SEV PAIN, Second choice Last administered on 01/03/19at 19:10; Start 01/03/19 at 11:00; Stop 01/04/19 at 10:59; Status DC Prochlorperazine Edisylate (Compazine) 5 mg PACU PRN PRN IV NAUSEA, MRX1 Last administered on 01/03/19at 18:30; Start 01/03/19 at 11:00; Stop 01/04/19 at 10:59; Status DC Insulin Human Lispro (HumaLOG VIAL for OP,RR ONLY) 0-10 units PRN Q1HR PRN SQ P ER PROTOCOL Last administered on 01/03/19at 19:14; Start 01/03/19 at 15:15; Stop 01/04/19 at 15:14; Status DC Cefazolin Sodium 1 gm/Dextrose 50 ml @ 100 mls/hr 1X PREOP ONCE IV ; Start 01/03/19 at 15:45; Stop 01/03/19 at 16:14; Status UNV Cefazolin Sodium 50 ml @ 100 mls/hr 1X ONCE IV ; Start 01/03/19 at 16:00; Stop 01/03/19 at 16:29; Status DC Heparin Sodium (Porcine) 5000 unit/Sodium Chloride 505 ml @ 505 mls/hr 1X ONCE IRR ; Start 01/03/19 at 16:17; Stop 01/03/19 at 17:16; Status DC Lidocaine HCl 20 ml STK-MED ONCE .ROUTE ; Start 01/03/19 at 16:17; Stop 01/03/19 at 16:17; Status DC Cellulose (Surgicel Fibrillar 1x2) 1 each STK-MED ONCE .ROUTE ; Start 01/03/19 at 16:17; Stop 01/03/19 at 16:17; Status DC Cefazolin Sodium 1 gm/Sodium Chloride 500 ml @ 500 mls/hr 1X ONCE IRR Last administered on 01/03/19at 17:05; Start 01/03/19 at 16:18; Stop 01/03/19 at 1 7:17; Status DC Lidocaine HCl 20 ml STK-MED ONCE .ROUTE ; Start 01/03/19 at 16:17; Stop 01/03/19 at 16:18; Status Cancel Morphine Sulfate (Morphine Sulfate) 2 mg STK-MED ONCE .ROUTE ; Start 01/03/19 at 18:04; Stop 01/03/19 at 18:05; Status DC Ondansetron HCl (Zofran) 4 mg STK-MED ONCE .ROUTE ; Start 01/03/19 at 18:07; Stop 01/03/19 at 18:07; Status DC Propofol 20 ml @ As Directed STK-MED ONCE IV ; Start 01/03/19 at 18:07; Stop 01/03/19 at 18:07; Status DC Lidocaine HCl (Lidocaine Pf 2% Vial) 5 ml STK-MED ONCE .ROUTE ; Start 01/03/19 at 18:07; Stop 01/03/19 at 18:07; Status DC Phenylephrine HCl (PHENYLEPHRINE in 0.9% NACL PF) 1 mg STK-MED ONCE IV ; Start 01/03/19 at 18:07; Stop 01/03/19 at 18:07; Status DC Dexamethasone Sodium Phosphate (Decadron) 4 mg STK-MED ONCE .ROUTE ; Start 01/03/19 at 18:07; Stop 01/03/19 at 18:07; Status DC Ephedrine Sulfate (ePHEDrine PF IN SALINE SYRINGE) 50 mg STK-MED ONCE IV ; Start 01/03/19 at 18:07; Stop 01/03/19 at 18:07; Status DC Sevoflurane (Ultane) 60 ml STK-MED ONCE IH ; Start 01/03/19 at 18:07; Stop 01/03/19 at 18:07; Status DC Hydromorphone HCl (Dilaudid) 2 mg STK-MED ONCE .ROUTE ; Start 01/03/19 at 18:11; Stop 01/03/19 at 18:11; Status DC Prochlorperazine Edisylate (Compazine) 10 mg STK-MED ONCE .ROUTE ; Start 01/03/19 at 18:18; Stop 01/03/19 at 18:18; Status DC Cefazolin Sodium (Ancef 1gm Ivpb For Omni) 1 gm STK-MED ONCE IV ; Start 01/03/19 at 16:00; Stop 01/04/19 at 08:42; Status DC Lidocaine/ Epinephrine (LIDOCAINE 1%-EPI 1:100,000 Multi-Dose) 20 ml STK-MED ONCE .ROUTE ; Start 01/04/19 at 10:53; Stop 01/04/19 at 10:53; Status DC Midazolam HCl (Versed) 2 mg 1X ONCE IV Last administered on 01/04/19at 12:27; Start 01/04/19 at 12:00; Stop 01/04/19 at 12:04; Status DC Fentanyl Citrate (Fentanyl 2ml Vial) 100 mcg 1X ONCE IV Last administered on 01/04/19at 12:27; Start 01/04/19 at 12:00; Stop 01/04/19 at 12:05; Status DC Lidocaine/ Epinephrine (LIDOCAINE 1%-EPI 1:100,000 Multi-Dose) 20 ml 1X ONCE SQ Last administered on 01/04/19at 12:28; Start 01/04/19 at 12:00; Stop 01/04/19 at 12:04; Status DC Cefazolin Sodium 50 ml @ 100 mls/hr 1X ONCE IV ; Start 01/04/19 at 12:00; Stop 01/04/19 at 12:29; Status Cancel Cefazolin Sodium 0 ml @ As Directed STK-MED ONCE IV ; Start 01/04/19 at 12:04; Stop 01/04/19 at 12:05; Status DC Midazolam HCl (Versed) 2 mg STK-MED ONCE .ROUTE ; Start 01/04/19 at 12:05; S top 01/04/19 at 12:05; Status DC Fentanyl Citrate (Fentanyl 2ml Vial) 100 mcg STK-MED ONCE .ROUTE ; Start 01/04/19 at 12:05; Stop 01/04/19 at 12:05; Status DC Hydromorphone HCl (Dilaudid) 1 mg PRN Q3HRS PRN IV SEVERE PAIN Last administered on 01/04/19at 14:28; Start 01/04/19 at 14:00 Sodium Chloride 1,000 ml @ 1,000 mls/hr Q1H PRN IV hypotension; Start 01/04/19 at 14:14; Stop 01/04/19 at 20:13; Status DC Diphenhydramine HCl (Benadryl) 25 mg 1X PRN PRN IV ITCHING; Start 01/04/19 at 14:15; Stop 01/05/19 at 14:14; Status DC Diphenhydramine HCl (Benadryl) 25 mg 1X PRN PRN IV ITCHING; Start 01/04/19 at 14:15; Stop 01/05/19 at 14:14; Status DC Sodium Chloride 1,000 ml @ 400 mls/hr Q2H30M PRN IV PATENCY; Start 01/04/19 at 14:14; Stop 01/05/19 at 02:13; Status DC Info (PHARMACY MONITORING -- do not chart) 1 each PRN DAILY PRN MC SEE COMMENTS; Start 01/04/19 at 14:15; Stop 01/06/19 at 12:08; Status DC Sodium Chloride 500 ml @ 500 mls/hr 1X ONCE IV ; Start 01/06/19 at 07:45; Stop 01/06/19 at 08:44; Status DC Sodium Chloride 1,000 ml @ 1,000 mls/hr Q1H PRN IV hypotension; Start 01/06/19 at 08:10; Stop 01/06/19 at 14:09; Status DC Acetaminophen (Tylenol) 500 mg 1X PRN PRN PO MILD PAIN / TEMP; Start 01/06/19 at 08:15; Stop 01/07/19 at 08:14 Diphenhydramine HCl (Benadryl) 25 mg 1X PRN PRN IV ITCHING; Start 01/06/19 at 08:15; Stop 01/07/19 at 08:14 Diphenhydramine HCl (Benadryl) 25 mg 1X PRN PRN IV ITCHING; Start 01/06/19 at 08:15; Stop 01/07/19 at 08:14 Sodium Chloride 1,000 ml @ 400 mls/hr Q2H30M PRN IV PATENCY; Start 01/06/19 at 08:10; Stop 01/06/19 at 20:09 Info (PHARMACY MONITORING -- do not chart) 1 each PRN DAILY PRN MC SEE COMMENTS; Start 01/06/19 at 08:15 Diclofenac Sodium (Voltaren) 1 charan PRN QID PRN TP JOINT PAIN; Start 01/06/19 at 12:15 Darbepoetin Abisai (ARANESP for DIALYSIS PTS) 60 mcg WEEKLYHS SQ ; Start 01/06/19 at 21:00 Active Scripts Active Reported Augmentin 875-125 Tablet (Amoxicillin/Potassium Clav) 1 Each Tablet 1 Tab PO BID Protonix (Pantoprazole Sodium) 20 Mg Tablet.dr 40 Mg PO DAILY Lipitor (Atorvastatin Calcium) 20 Mg Tablet 20 Mg PO HS Aspirin 81 Mg Tab.chew 1 Tab PO DAILY Losartan Potassium 50 Mg Tablet 25 Mg PO DAILY Tums (Calcium Carbonate) 200 Mg Tab.chew 2 Tab PO TIDAC Breo Ellipta 100-25 Mcg Inh (Fluticasone/Vilanterol) 1 Each Aer.pow.ba 1 Puff IH DAILY PRN Ventolin Hfa Inhaler (Albuterol Sulfate) 18 Gm Hfa.aer.ad 2 Puff INH QID Ferrous Sulfate 325 Mg Tablet 325 Mg PO TID Docusate Sodium 100 Mg Capsule 100 Mg PO BID Humulin R U-500 Kwikpen (Insulin Regular, Human) 500 Unit/1 Ml Insuln.pen 10 Unit SQ TIDAC U-500 Voltaren (Diclofenac Sodium) 100 Gm Gel..gram. 100 Gm TP PRN QID PRN [place] 10-325 Tablet (Acetaminophen/Hydrocodone Bitart) 1 Each Tablet 1 Tab PO PRN Q6HRS PRN Levothyroxine Sodium 150 Mcg Tablet 150 Mcg PO DAILYAC Carvedilol (Carvedilol) 6.25 Mg Tablet 6.25 Mg PO BIDWMEALS Vitals/I & O Vital Sign - Last 24 Hours 01/05/19 01/05/19 01/05/19 01/05/19 16:25 17:59 18:59 19:00 Temp 99.0 99.0 Pulse 92 90 Resp 20 B/P (MAP) 105/43 111/49 (69) Pulse Ox 96 O2 Delivery Nasal Cannula Nasal Cannula Nasal Cannula O2 Flow Rate 3.0 3.0 2.0 01/05/19 01/05/19 01/05/19 01/06/19 19:23 20:00 23:00 03:00 Temp 98.5 99.3 98.5 99.3 Pulse 90 86 Resp 20 18 B/P (MAP) 119/48 (71) 96/39 (58) Pulse Ox 95 96 94 O2 Delivery Nasal Cannula Nasal Cannula Nasal Cannula Nasal Cannula O2 Flow Rate 2.0 3.0 2.0 2.0 11/1/19 01/06/19 01/06/19 01/06/19 05:25 07:00 07:30 07:31 Temp 97.9 97.9 Pulse 89 Resp 14 B/P (MAP) 89/41 (57) 92/39 (56) Pulse Ox 97 100 100 O2 Delivery Nasal Cannula Nasal Cannula Nasal Cannula O2 Flow Rate 2.0 2.0 2.0 01/06/19 01/06/19 01/06/19 01/06/19 09:05 11:07 11:12 12:41 Resp 21 Pulse Ox 99 100 100 93 O2 Delivery BiPAP/CPAP BiPAP/CPAP BiPAP/CPAP BiPAP/CPAP 01/06/19 01/06/19 12:49 15:41 Pulse Ox 100 100 O2 Delivery BiPAP/CPAP BiPAP/CPAP Intake and Output 01/05/19 01/05/19 01/06/19 15:00 23:00 07:00 Intake Total 120 ml 360 ml 200 ml Balance 120 ml 360 ml 200 ml TAYLOR CUMMINGS MD Jan 06, 2019 15:56
[2019-01-06] MEDS: DOCUSATE SODIUM 100 MG CAPSULE. PO SCH ×2 (16:20→21:10)
[2019-01-06] MEDS: PANTOPRAZOLE 40 MG TABLET.DR. PO SCH (16:20)
[2019-01-06] MEDS: LACTOBACILLUS RHAMNOSUS GG 1 CAPSULE. PO SCH ×2 (16:20→21:10)
[2019-01-06] MEDS: ASPIRIN CHEWABLE 81 MG TABLET. PO SCH (16:21)
[2019-01-06] MEDS: LEVOTHYROXINE 150 MCG TABLET PO SCH (16:21)
[2019-01-06] MEDS: VANCOMYCIN 500 MG in IV NORMAL SALINE 100ML 100 ML IV SCH (16:23)
--- NOTE | 2019-01-06 17:00 | NUR ---
PATIENTS' BLOOD SUGAR LEVEL PER FINGERSTICK 159, BUT PATIENT DID NOT CONSUME DINNER, WILL HOLD INSULIN AT THIS TIME.
--- NOTE | 2019-01-06 17:07 | NUR ---
Wound Care: Follow up to change wound vac dressing to thumb and dressing to L 3rd finger. Wounds cleansed. Skin prep applied to periwound of both wounds. See detailed assessment. Black foam, 1 piece, to L thumb, bridged to LFA, good seal achieved. Hydrofera Blue to L 3rd finger, covered with telfa island dressing. Dressings OK to stay in place until follow up on Wednesday01/09/19. Pt continues on P500 mattress. Heels floated on pillows. Approved for home vac. No immediate plans for discharge over the weekend.
--- NOTE | 2019-01-06 17:43 | PDOC ---
PULMONARY PROGRESS NOTES Vitals Vital Signs Date Time Temp Pulse Resp B/P (MAP) Pulse Ox O2 Delivery O2 Flow Rate FiO2 01/06/19 16:29 92 115/43 01/06/19 16:21 20 95 Nasal Cannula 2.0 01/06/19 15:00 97.8 97.8 Lungs: Clear Cardiovascular: S1, S2 Labs Laboratory Tests Test 01/04/19 21:16 01/05/19 07:51 01/05/19 11:48 01/05/19 11:54 Glucose (Fingerstick) 180 mg/dL (70-99) 210 mg/dL (70-99) 233 mg/dL (70-99) White Blood Count 11.0 x10^3/uL (4.0-11.0) Red Blood Count 2.98 x10^6/uL (3.50-5.40) Hemoglobin 9.4 g/dL (12.0-15.5) Hematocrit 30.8 % (36.0-47.0) Mean Corpuscular Volume 103 fL (79-100) Mean Corpuscular Hemoglobin 32 pg (25-35) Mean Corpuscular Hemoglobin Concent 31 g/dL (31-37) Red Cell Distribution Width 15.4 % (11.5-14.5) Platelet Count 262 x10^3/uL (140-400) Neutrophils (%) (Auto) 81 % (31-73) Lymphocytes (%) (Auto) 9 % (24-48) Monocytes (%) (Auto) 9 % (0-9) Eosinophils (%) (Auto) 1 % (0-3) Basophils (%) (Auto) 1 % (0-3) Neutrophils # (Auto) 8.9 x10^3/uL (1.8-7.7) Lymphocytes # (Auto) 1.0 x10^3/uL (1.0-4.8) Monocytes # (Auto) 1.0 x10^3/uL (0.0-1.1) Eosinophils # (Auto) 0.1 x10^3/uL (0.0-0.7) Basophils # (Auto) 0.1 x10^3/uL (0.0-0.2) Sodium Level 138 mmol/L (136-145) Potassium Level 4.6 mmol/L (3.5-5.1) Chloride Level 99 mmol/L (98-107) Carbon Dioxide Level 30 mmol/L (21-32) Anion Gap 9 (6-14) Blood Urea Nitrogen 22 mg/dL (7-20) Creatinine 4.7 mg/dL (0.6-1.0) Estimated GFR (Cockcroft-Gault) 11.2 BUN/Creatinine Ratio 5 (6-20) Glucose Level 230 mg/dL (70-99) Calcium Level 8.3 mg/dL (8.5-10.1) Total Bilirubin 0.3 mg/dL (0.2-1.0) Aspartate Amino Transf (AST/SGOT) 14 U/L (15-37) Alanine Aminotransferase (ALT/SGPT) 18 U/L (14-59) Alkaline Phosphatase 69 U/L (46-116) Total Protein 7.1 g/dL (6.4-8.2) Albumin 2.4 g/dL (3.4-5.0) Albumin/Globulin Ratio 0.5 (1.0-1.7) Test 01/05/19 16:52 01/05/19 21:23 01/06/19 07:00 01/06/19 07:47 Glucose (Fingerstick) 220 mg/dL (70-99) 202 mg/dL (70-99) 194 mg/dL (70-99) O2 Saturation 95 % (92-99) Arterial Blood pH 7.26 (7.35-7.45) Arterial Blood pCO2 at Patient Temp 67 mmHg (35-46) Arterial Blood pO2 at Patient Temp 84 mmHg (65-108) Arterial Blood HCO3 29 mmol/L (21-28) Arterial Blood Base Excess 1 mmol/L (-3-3) FiO2 24 Test 01/06/19 08:00 01/06/19 12:19 01/06/19 12:43 01/06/19 16:21 White Blood Count 11.3 x10^3/uL (4.0-11.0) Red Blood Count 2.71 x10^6/uL (3.50-5.40) Hemoglobin 8.7 g/dL (12.0-15.5) Hematocrit 28.3 % (36.0-47.0) Mean Corpuscular Volume 104 fL (79-100) Mean Corpuscular Hemoglobin 32 pg (25-35) Mean Corpuscular Hemoglobin Concent 31 g/dL (31-37) Red Cell Distribution Width 14.8 % (11.5-14.5) Platelet Count 248 x10^3/uL (140-400) Neutrophils (%) (Auto) 79 % (31-73) Lymphocytes (%) (Auto) 9 % (24-48) Monocytes (%) (Auto) 9 % (0-9) Eosinophils (%) (Auto) 1 % (0-3) Basophils (%) (Auto) 1 % (0-3) Neutrophils # (Auto) 8.9 x10^3/uL (1.8-7.7) Lymphocytes # (Auto) 1.1 x10^3/uL (1.0-4.8) Monocytes # (Auto) 1.0 x10^3/uL (0.0-1.1) Eosinophils # (Auto) 0.2 x10^3/uL (0.0-0.7) Basophils # (Auto) 0.1 x10^3/uL (0.0-0.2) Sodium Level 138 mmol/L (136-145) Potassium Level 4.6 mmol/L (3.5-5.1) Chloride Level 100 mmol/L (98-107) Carbon Dioxide Level 31 mmol/L (21-32) Anion Gap 7 (6-14) Blood Urea Nitrogen 25 mg/dL (7-20) Creatinine 5.1 mg/dL (0.6-1.0) Estimated GFR (Cockcroft-Gault) 10.1 BUN/Creatinine Ratio 5 (6-20) Glucose Level 222 mg/dL (70-99) Calcium Level 8.4 mg/dL (8.5-10.1) Total Bilirubin 0.3 mg/dL (0.2-1.0) Aspartate Amino Transf (AST/SGOT) 7 U/L (15-37) Alanine Aminotransferase (ALT/SGPT) 11 U/L (14-59) Alkaline Phosphatase 65 U/L (46-116) Total Protein 7.1 g/dL (6.4-8.2) Albumin 2.2 g/dL (3.4-5.0) Albumin/Globulin Ratio 0.4 (1.0-1.7) Glucose (Fingerstick) 146 mg/dL (70-99) 159 mg/dL (70-99) O2 Saturation 92 % (92-99) Arterial Blood pH 7.34 (7.35-7.45) Arterial Blood pCO2 at Patient Temp 66 mmHg (35-46) Arterial Blood pO2 at Patient Temp 67 mmHg (65-108) Arterial Blood HCO3 35 mmol/L (21-28) Arterial Blood Base Excess 8 mmol/L (-3-3) FiO2 35 Laboratory Tests Test 01/05/19 21:23 01/06/19 07:00 01/06/19 07:47 01/06/19 08:00 Glucose (Fingerstick) 202 mg/dL (70-99) 194 mg/dL (70-99) O2 Saturation 95 % (92-99) Arterial Blood pH 7.26 (7.35-7.45) Arterial Blood pCO2 at Patient Temp 67 mmHg (35-46) Arterial Blood pO2 at Patient Temp 84 mmHg (65-108) Arterial Blood HCO3 29 mmol/L (21-28) Arterial Blood Base Excess 1 mmol/L (-3-3) FiO2 24 White Blood Count 11.3 x10^3/uL (4.0-11.0) Red Blood Count 2.71 x10^6/uL (3.50-5.40) Hemoglobin 8.7 g/dL (12.0-15.5) Hematocrit 28.3 % (36.0-47.0) Mean Corpuscular Volume 104 fL (79-100) Mean Corpuscular Hemoglobin 32 pg (25-35) Mean Corpuscular Hemoglobin Concent 31 g/dL (31-37) Red Cell Distribution Width 14.8 % (11.5-14.5) Platelet Count 248 x10^3/uL (140-400) Neutrophils (%) (Auto) 79 % (31-73) Lymphocytes (%) (Auto) 9 % (24-48) Monocytes (%) (Auto) 9 % (0-9) Eosinophils (%) (Auto) 1 % (0-3) Basophils (%) (Auto) 1 % (0-3) Neutrophils # (Auto) 8.9 x10^3/uL (1.8-7.7) Lymphocytes # (Auto) 1.1 x10^3/uL (1.0-4.8) Monocytes # (Auto) 1.0 x10^3/uL (0.0-1.1) Eosinophils # (Auto) 0.2 x10^3/uL (0.0-0.7) Basophils # (Auto) 0.1 x10^3/uL (0.0-0.2) Sodium Level 138 mmol/L (136-145) Potassium Level 4.6 mmol/L (3.5-5.1) Chloride Level 100 mmol/L (98-107) Carbon Dioxide Level 31 mmol/L (21-32) Anion Gap 7 (6-14) Blood Urea Nitrogen 25 mg/dL (7-20) Creatinine 5.1 mg/dL (0.6-1.0) Estimated GFR (Cockcroft-Gault) 10.1 BUN/Creatinine Ratio 5 (6-20) Glucose Level 222 mg/dL (70-99) Calcium Level 8.4 mg/dL (8.5-10.1) Total Bilirubin 0.3 mg/dL (0.2-1.0) Aspartate Amino Transf (AST/SGOT) 7 U/L (15-37) Alanine Aminotransferase (ALT/SGPT) 11 U/L (14-59) Alkaline Phosphatase 65 U/L (46-116) Total Protein 7.1 g/dL (6.4-8.2) Albumin 2.2 g/dL (3.4-5.0) Albumin/Globulin Ratio 0.4 (1.0-1.7) Test 01/06/19 12:19 01/06/19 12:43 01/06/19 16:21 Glucose (Fingerstick) 146 mg/dL (70-99) 159 mg/dL (70-99) O2 Saturation 92 % (92-99) Arterial Blood pH 7.34 (7.35-7.45) Arterial Blood pCO2 at Patient Temp 66 mmHg (35-46) Arterial Blood pO2 at Patient Temp 67 mmHg (65-108) Arterial Blood HCO3 35 mmol/L (21-28) Arterial Blood Base Excess 8 mmol/L (-3-3) FiO2 35 Medications Active Scripts Medications Dose Route/Sig Max Daily Dose Days Date Category Dose Instructions Augmentin 875-125 Tablet (Amoxicillin/Potassium Clav) 1 Each Tablet 1 Tab PO BID 04/12/18 Reported Protonix (Pantoprazole Sodium) 20 Mg Tablet.dr 40 Mg PO DAILY 04/12/18 Reported Lipitor (Atorvastatin Calcium) 20 Mg Tablet 20 Mg PO HS 04/12/18 Reported Aspirin 81 Mg Tab.chew 1 Tab PO DAILY 04/12/18 Reported Losartan Potassium 50 Mg Tablet 25 Mg PO DAILY 04/12/18 Reported Tums (Calcium Carbonate) 200 Mg Tab.chew 2 Tab PO TIDAC 01/10/18 Reported Breo Ellipta 100-25 Mcg Inh (Fluticasone/Vilanterol) 1 Each Aer.pow.ba 1 Puff IH DAILY PRN 01/10/18 Reported Ventolin Hfa Inhaler (Albuterol Sulfate) 18 Gm Hfa.aer.ad 2 Puff INH QID 01/10/18 Reported Ferrous Sulfate 325 Mg Tablet 325 Mg PO TID 01/10/18 Reported Docusate Sodium 100 Mg Capsule 100 Mg PO BID 01/10/18 Reported Humulin R U-500 Kwikpen (Insulin Regular, Human) 500 Unit/1 Ml Insuln.pen 10 Unit SQ TIDAC 01/10/18 Reported U-500 Voltaren (Diclofenac Sodium) 100 Gm Gel..gram. 100 Gm TP PRN QID PRN 01/10/18 Reported [place] 10-325 Tablet (Acetaminophen/Hydrocodone Bitart) 1 Each Tablet 1 Tab PO PRN Q6HRS PRN 01/10/18 Reported Levothyroxine Sodium 150 Mcg Tablet 150 Mcg PO DAILYAC 01/10/18 Reported Carvedilol (Carvedilol) 6.25 Mg Tablet 6.25 Mg PO BIDWMEALS 01/10/18 Reported Impression . NOTE DICTATED SEE ORDERS CXR PRN VICKY SOLOMON MD Jan 06, 2019 17:43
[2019-01-06 19:00] VITALS: BP 129/40
[2019-01-06] MEDS ORDERED: DARBEPOETIN ALFA 60 MCG/0.3 ML DISP.SYRIN. SQ SCH (21:00)
[2019-01-06] MEDS: ATORVASTATIN CALCIUM 20 MG TABLET PO SCH (21:10)
[2019-01-06] MEDS: INSULIN GLARGINE SYRINGE. SQ SCH (21:16)
[2019-01-06] MEDS: CEFEPIME HCL IV Push 1 GM VIAL. IVP SCH (21:22)
[2019-01-06 23:03] VITALS: BP 112/36
--- NOTE | 2019-01-07 01:47 | CONS ---
DATE OF CONSULTATION: 01/06/2019 ATTENDING PHYSICIAN: Pao Narayan MD REASON FOR CONSULTATION: The patient is seen in pulmonary consultation at the request of Dr. Cook for hypercapnia. HISTORY OF PRESENT ILLNESS: The patient is a 68-year-old that was initially admitted back on 12/27/2018. She has comorbidities, end-stage renal disease, coronary artery disease with previous coronary artery bypass grafting, type 2 diabetes, chronic obstructive pulmonary disease, obesity, and hypothyroidism. She was directly admitted from the wound care. She had a left thumb wound. Since then the patient has been seen by multiple services including Infectious Disease Service, has been on some antibiotics. On 01/03, she underwent surgical intervention for the ischemic changes to her right hand including gangrene of the left thumb. Today, the patient has some respiratory distress. Arterial blood gas was obtained revealing a pH of 7.26, PaCO2 of 67 and pO2 of 84. I placed her on BiPAP. The arterial blood gas improved to a pH of 7.34, PaCO2 of 66, pO2 of 67. The patient was not enamored with the use of BiPAP. She is currently on 2 liters of oxygen supplementation, awake, alert, following commands. She does not appear to be in any distress. She is currently eating. PAST MEDICAL HISTORY: As indicated above comorbidities including end-stage renal disease, hypertension, hyperlipidemia, coronary artery disease, diabetes, hypothyroidism, obesity, tobacco dependent in remission, COPD. PAST SURGICAL HISTORY: Status post coronary artery bypass graft and recent surgical intervention as indicated above. FAMILY HISTORY: No family history of lung disorders. SOCIAL HISTORY: She is currently not smoking. CURRENT MEDICATIONS: List was reviewed. ALLERGIES: MEPERIDINE. REVIEW OF SYSTEMS: As indicated above, otherwise, a 10-point system was reviewed and negative. PHYSICAL EXAMINATION: GENERAL: Morbid obese individual, body mass index of 41 on 2 liters of oxygen supplementation. HEENT: Eyes, the sclerae were nonicteric. NECK: Jugular venous distention could not be assessed secondary to body habitus. CHEST: Full expansion. LUNGS: Scattered rhonchi, no wheezes. CARDIOVASCULAR: Distant heart sounds. ABDOMEN: Obese. EXTREMITIES: Evidence of recent surgery to the right upper extremity. LABORATORY DATA: Reviewed. White count was elevated. Hemoglobin and hematocrit were noted. BUN and creatinine are elevated. Electrolytes were noted. Arterial blood gases as indicated above. IMPRESSION: 1. Uhmhc-[id number] hypercapnic hypoxemic respiratory failure, multifactorial. 2. Suspect obesity-hypoventilation syndrome/obstructive sleep apnea. 3. Status post left arm radiocephalic fistula ligation. 4. Left thumb infection. 5. Leukocytosis. 6. Steal phenomenon. 7. End-stage renal disease. 8. Diabetes. 9. Prior history of methicillin-sensitive staphylococcus aureus and Klebsiella infection. PLAN: 1. We will continue p.r.n. BiPAP and at bedtime. 2. Avoiding increasing FiO2, the patient should be on no more than 2 liters per nasal cannula when off the BiPAP. 3. Baseline chest x-ray. 4. We will follow along to make further recommendations. I do appreciate the privilege in sharing in the patient's care. VICKY SMITH MD DR: BERNICE/kris JOB#: [id number] / [id number]
[2019-01-07 03:25] VITALS: BP 123/42
--- NOTE | 2019-01-07 04:10 | NUR ---
Pt wore BIPAP from 2130 to 0410 this AM when she was fully awake, 2L/NC placed on pt. Will monitor.
[2019-01-07] MEDS: LEVOTHYROXINE 150 MCG TABLET PO SCH (04:13)
[2019-01-07] MEDS: oxyCODONE IR 5 MG TABLET PO PRN ×2 (04:13→11:58)
--- NOTE | 2019-01-07 04:58 | NUR ---
PT REFUSED TO WEAR BIPAP
[2019-01-07 07:00] VITALS: BP 125/58
--- NOTE | 2019-01-07 07:00 | PDOC ---
Infectious Disease Note Subjective Subjective Doing well now slept better. Wore BIPAP most of the night pain controlled + BM No F/C/soa/RASH ROS ROS o/w neg Vital Sign Vital Signs Vital Signs Date Time Temp Pulse Resp B/P (MAP) Pulse Ox O2 Delivery O2 Flow Rate FiO2 01/07/19 05:13 20 Nasal Cannula 2.0 01/07/19 03:25 97.5 96 123/42 (69) 96 97.5 Physical Exam PHYSICAL EXAM GENERAL: Propped up in chair, alert - NAD - looks well HEENT: nml marcie. OC/Op - clear NECK: Supple LUNGS: Clear bilaterally. HEART: S1, S2. ABDOMEN: Soft, obese. Decreased Bowel sounds, nontender but some distension. EXTREMITIES: Edema present, chronic. DERMATOLOGIC: Left hand with vac and dressing in place NEUROLOGIC: Alert, answers questions R chest HD cath - clean Labs Lab Laboratory Tests Test 01/06/19 07:47 01/06/19 08:00 01/06/19 12:19 01/06/19 12:43 Glucose (Fingerstick) 194 mg/dL (70-99) 146 mg/dL (70-99) White Blood Count 11.3 x10^3/uL (4.0-11.0) Red Blood Count 2.71 x10^6/uL (3.50-5.40) Hemoglobin 8.7 g/dL (12.0-15.5) Hematocrit 28.3 % (36.0-47.0) Mean Corpuscular Volume 104 fL (79-100) Mean Corpuscular Hemoglobin 32 pg (25-35) Mean Corpuscular Hemoglobin Concent 31 g/dL (31-37) Red Cell Distribution Width 14.8 % (11.5-14.5) Platelet Count 248 x10^3/uL (140-400) Neutrophils (%) (Auto) 79 % (31-73) Lymphocytes (%) (Auto) 9 % (24-48) Monocytes (%) (Auto) 9 % (0-9) Eosinophils (%) (Auto) 1 % (0-3) Basophils (%) (Auto) 1 % (0-3) Neutrophils # (Auto) 8.9 x10^3/uL (1.8-7.7) Lymphocytes # (Auto) 1.1 x10^3/uL (1.0-4.8) Monocytes # (Auto) 1.0 x10^3/uL (0.0-1.1) Eosinophils # (Auto) 0.2 x10^3/uL (0.0-0.7) Basophils # (Auto) 0.1 x10^3/uL (0.0-0.2) Sodium Level 138 mmol/L (136-145) Potassium Level 4.6 mmol/L (3.5-5.1) Chloride Level 100 mmol/L (98-107) Carbon Dioxide Level 31 mmol/L (21-32) Anion Gap 7 (6-14) Blood Urea Nitrogen 25 mg/dL (7-20) Creatinine 5.1 mg/dL (0.6-1.0) Estimated GFR (Cockcroft-Gault) 10.1 BUN/Creatinine Ratio 5 (6-20) Glucose Level 222 mg/dL (70-99) Calcium Level 8.4 mg/dL (8.5-10.1) Total Bilirubin 0.3 mg/dL (0.2-1.0) Aspartate Amino Transf (AST/SGOT) 7 U/L (15-37) Alanine Aminotransferase (ALT/SGPT) 11 U/L (14-59) Alkaline Phosphatase 65 U/L (46-116) Total Protein 7.1 g/dL (6.4-8.2) Albumin 2.2 g/dL (3.4-5.0) Albumin/Globulin Ratio 0.4 (1.0-1.7) O2 Saturation 92 % (92-99) Arterial Blood pH 7.34 (7.35-7.45) Arterial Blood pCO2 at Patient Temp 66 mmHg (35-46) Arterial Blood pO2 at Patient Temp 67 mmHg (65-108) Arterial Blood HCO3 35 mmol/L (21-28) Arterial Blood Base Excess 8 mmol/L (-3-3) FiO2 35 Test 01/06/19 16:21 01/06/19 20:33 Glucose (Fingerstick) 159 mg/dL (70-99) 196 mg/dL (70-99) Micro AEROBIC RES 1 Final Enterococcus species Enterococcus faecalis 4+ AEROBIC RES 2 Final Mixed skin emre 4+ Performed at: DA - [facility] [address] [facility] [facility] [address], [place], [place] [id number] Anthropology Department Chair: BOBBY Mahajan MD, Phone: [phone] ANTIMICROBIAL SUSCEPTIBILITY Final Comment S = Susceptible; I = Intermediate; R = Resistant P = Positive; N = Negative MICS are expressed in micrograms per mL Antibiotic RSLT#1 RSLT#2 RSLT#3 RSLT#4 Penicillin S =1 Vancomycin S =1 Microbiology 12/27/18 Aerobic Culture - Final, Complete 12/27/18 Aerobic Culture Result 1 (MANPREET) - Final, Complete 12/27/18 Aerobic Culture Result 2 (MANPREET) - Final, Complete 12/27/18 Antimicrobic Susceptibility - Final, Complete 12/27/18 Gram Stain - Final, Complete 12/27/18 Gram Stain Result 1 (MANPREET) - Final, Complete 12/27/18 Gram Stain Result 2 (MANPREET) - Final, Complete 12/27/18 Gram Stain Result 3 (MANPREET) - Final, Complete Objective Assessment Acute resp failure on Bipap and more alert -better S/p left arm radiocephalic fistula ligation, left 1st finger tip amputation and debridement of the thumb, left 3rd finger debridement 01/03 Left thumb infection, C/S GPC,GPR - mixed skin emre & enterococcus spp 12/27 Left 3rd finger dry eschar Leukocytosis - stable in part reactive with steal. S/p Dexamethasone 01/03 Steal phenomenon End-stage renal disease, on hemodialysis.thru LUE fistula, w/u for steal phenomenon Diabetes mellitus, uncontrolled. History of breast abscess with MSSA, Klebsiella and E. coli 04/2018. PPM in place. Plan Plan of Care Post op wounds are open so will cont cefepime and vanco renal dosing for dialysis local wound care Await further vascular f/u f/u labs D/w family and nursing KINGSTON HERNANDEZ MD Jan 07, 2019 07:00
[2019-01-07] MEDS: ALBUTEROL SULFATE 2.5 MG/3 ML NEBU. NEB SCH ×4 (07:27→20:33)
[2019-01-07] MEDS: BUDESONIDE 0.5 MG/2 ML NEBU. NEB SCH ×2 (07:27→20:32)
--- NOTE | 2019-01-07 08:12 | RAD ---
AP chest x-ray COMPARISON: Chest x-ray February 28, 2016. HISTORY: Respiratory failure. FINDINGS: Right jugular dual-lumen dialysis catheter tip right atrium. Dual-chamber implanted cardiac device stable. Median sternotomy and coronary bypass stable. Cardiomegaly stable. Tortuosity/ectasia and calcified plaque of the aortic arch stable. No pneumothorax. No pleural effusions. Pulmonary vascular congestion is present. Indistinct opacities lower lobes and lingula with mild air bronchograms likely present pulmonary edema. A superimposed pneumonia is not excluded. IMPRESSION: Congestive heart failure with cardiomegaly, pulmonary vascular congestion and opacities at the lingula and lower lobes likely representing mild alveolar pulmonary edema as described above. Electronically signed by: Jose Barba MD (01/07/2019 8:09 AM) [facility]
[2019-01-07] MEDS: DOCUSATE SODIUM 100 MG CAPSULE. PO SCH ×2 (08:49→22:14)
[2019-01-07] MEDS: LACTOBACILLUS RHAMNOSUS GG 1 CAPSULE. PO SCH ×2 (08:49→22:14)
[2019-01-07] MEDS: PANTOPRAZOLE 40 MG TABLET.DR. PO SCH (08:49)
[2019-01-07] MEDS: LOSARTAN POTASSIUM 25 MG TABLET. PO SCH (08:50)
[2019-01-07] MEDS: ASPIRIN CHEWABLE 81 MG TABLET. PO SCH (08:50)
[2019-01-07] MEDS: FERROUS SULFATE 325 MG TABLET. PO SCH ×3 (08:50→17:05)
[2019-01-07] MEDS: CARVEDILOL 3.125 MG TABLET. PO SCH ×2 (08:50→17:05)
[2019-01-07] MEDS: INSULIN LISPRO 300 UNITS/3 ML VIAL. SQ SCH ×3 (08:59→17:10)
[2019-01-07] MEDS: VANCOMYCIN PER PHARMACY MC PRN (09:44)
--- NOTE | 2019-01-07 10:54 | PDOC ---
PROGRESS NOTES Chief Complaint Chief Complaint 1. CHF exacerbation , hypoxic RF - bipAP 01.06, 2. Cellulitis left thumb, unroofed at Wound clinic, r.o osteomyelitis 3. 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 ESRD on HD, OLIGURIA 5. AOCD 6. MAXIMILIAN< Obesity, hypothyroidism, HTN, CAD hx, lipids- chronic stable 7. LABILE BP 8. Indwelling ICD 9 LABILE DM on cefepime and vanco renal dosing for dialysis local wound care 36 min pt exam, chart review, > 50% of time with exam, chart review, pt care coordination History of Present Illness History of Present Illness went into chf , needing BIPAP and pulm consul Pt also HD, now has a RT tunneled HD cath (had a left arm fistula demonstrating steal phenomenon and has left thumb wound with wound vac) REFUSES SNU ADAMANTLY CXR shows congestion SHe has bilateral pitting edema PLAN: GEt fluid off during HD? I added cards consult but she barely makes urine for lasix HH slated (refuses snu) FUll code wound care, wound vac, ID OV abx etc Dw dtr at bedside FULL CODE Vitals Vitals Vital Signs Date Time Temp Pulse Resp B/P (MAP) Pulse Ox O2 Delivery O2 Flow Rate FiO2 01/07/19 08:50 91 125/58 01/07/19 07:32 97 Nasal Cannula 3.0 01/07/19 07:00 98.0 20 98.0 Physical Exam Physical Exam GENERAL: Propped up in chair, alert - NAD - looks well HEENT: nml marcie. OC/Op - clear NECK: Supple LUNGS: Clear bilaterally. HEART: S1, S2. ABDOMEN: Soft, obese. Decreased Bowel sounds, nontender but some distension. EXTREMITIES: Edema present, chronic. DERMATOLOGIC: Left hand with vac and dressing in place NEUROLOGIC: Alert, answers questions R chest HD cath - clean General: Alert, Oriented X3, Cooperative, No acute distress, Other Heart: Regular rate, Normal S1, Normal S2, No murmurs Lungs: Clear Abdomen: Normal bowel sounds, Soft, No tenderness Extremities: Other Skin: Other Labs LABS Laboratory Tests Test 01/06/19 12:19 01/06/19 12:43 01/06/19 16:21 01/06/19 20:33 Glucose (Fingerstick) 146 mg/dL (70-99) 159 mg/dL (70-99) 196 mg/dL (70-99) O2 Saturation 92 % (92-99) Arterial Blood pH 7.34 (7.35-7.45) Arterial Blood pCO2 at Patient Temp 66 mmHg (35-46) Arterial Blood pO2 at Patient Temp 67 mmHg (65-108) Arterial Blood HCO3 35 mmol/L (21-28) Arterial Blood Base Excess 8 mmol/L (-3-3) FiO2 35 Test 01/07/19 07:24 Glucose (Fingerstick) 140 mg/dL (70-99) Review of Systems Review of Systems soa, weak, sleepy, all else 14 pt neg Comment Review of Relevant I have reviewed the following items filippo (where applicable) has been applied. Labs Laboratory Tests Test 01/05/19 11:48 01/05/19 11:54 01/05/19 16:52 01/05/19 21:23 Glucose (Fingerstick) 233 mg/dL (70-99) 220 mg/dL (70-99) 202 mg/dL (70-99) White Blood Count 11.0 x10^3/uL (4.0-11.0) Red Blood Count 2.98 x10^6/uL (3.50-5.40) Hemoglobin 9.4 g/dL (12.0-15.5) Hematocrit 30.8 % (36.0-47.0) Mean Corpuscular Volume 103 fL (79-100) Mean Corpuscular Hemoglobin 32 pg (25-35) Mean Corpuscular Hemoglobin Concent 31 g/dL (31-37) Red Cell Distribution Width 15.4 % (11.5-14.5) Platelet Count 262 x10^3/uL (140-400) Neutrophils (%) (Auto) 81 % (31-73) Lymphocytes (%) (Auto) 9 % (24-48) Monocytes (%) (Auto) 9 % (0-9) Eosinophils (%) (Auto) 1 % (0-3) Basophils (%) (Auto) 1 % (0-3) Neutrophils # (Auto) 8.9 x10^3/uL (1.8-7.7) Lymphocytes # (Auto) 1.0 x10^3/uL (1.0-4.8) Monocytes # (Auto) 1.0 x10^3/uL (0.0-1.1) Eosinophils # (Auto) 0.1 x10^3/uL (0.0-0.7) Basophils # (Auto) 0.1 x10^3/uL (0.0-0.2) Sodium Level 138 mmol/L (136-145) Potassium Level 4.6 mmol/L (3.5-5.1) Chloride Level 99 mmol/L (98-107) Carbon Dioxide Level 30 mmol/L (21-32) Anion Gap 9 (6-14) Blood Urea Nitrogen 22 mg/dL (7-20) Creatinine 4.7 mg/dL (0.6-1.0) Estimated GFR (Cockcroft-Gault) 11.2 BUN/Creatinine Ratio 5 (6-20) Glucose Level 230 mg/dL (70-99) Calcium Level 8.3 mg/dL (8.5-10.1) Total Bilirubin 0.3 mg/dL (0.2-1.0) Aspartate Amino Transf (AST/SGOT) 14 U/L (15-37) Alanine Aminotransferase (ALT/SGPT) 18 U/L (14-59) Alkaline Phosphatase 69 U/L (46-116) Total Protein 7.1 g/dL (6.4-8.2) Albumin 2.4 g/dL (3.4-5.0) Albumin/Globulin Ratio 0.5 (1.0-1.7) Test 01/06/19 07:00 01/06/19 07:47 01/06/19 08:00 01/06/19 12:19 O2 Saturation 95 % (92-99) Arterial Blood pH 7.26 (7.35-7.45) Arterial Blood pCO2 at Patient Temp 67 mmHg (35-46) Arterial Blood pO2 at Patient Temp 84 mmHg (65-108) Arterial Blood HCO3 29 mmol/L (21-28) Arterial Blood Base Excess 1 mmol/L (-3-3) FiO2 24 Glucose (Fingerstick) 194 mg/dL (70-99) 146 mg/dL (70-99) White Blood Count 11.3 x10^3/uL (4.0-11.0) Red Blood Count 2.71 x10^6/uL (3.50-5.40) Hemoglobin 8.7 g/dL (12.0-15.5) Hematocrit 28.3 % (36.0-47.0) Mean Corpuscular Volume 104 fL (79-100) Mean Corpuscular Hemoglobin 32 pg (25-35) Mean Corpuscular Hemoglobin Concent 31 g/dL (31-37) Red Cell Distribution Width 14.8 % (11.5-14.5) Platelet Count 248 x10^3/uL (140-400) Neutrophils (%) (Auto) 79 % (31-73) Lymphocytes (%) (Auto) 9 % (24-48) Monocytes (%) (Auto) 9 % (0-9) Eosinophils (%) (Auto) 1 % (0-3) Basophils (%) (Auto) 1 % (0-3) Neutrophils # (Auto) 8.9 x10^3/uL (1.8-7.7) Lymphocytes # (Auto) 1.1 x10^3/uL (1.0-4.8) Monocytes # (Auto) 1.0 x10^3/uL (0.0-1.1) Eosinophils # (Auto) 0.2 x10^3/uL (0.0-0.7) Basophils # (Auto) 0.1 x10^3/uL (0.0-0.2) Sodium Level 138 mmol/L (136-145) Potassium Level 4.6 mmol/L (3.5-5.1) Chloride Level 100 mmol/L (98-107) Carbon Dioxide Level 31 mmol/L (21-32) Anion Gap 7 (6-14) Blood Urea Nitrogen 25 mg/dL (7-20) Creatinine 5.1 mg/dL (0.6-1.0) Estimated GFR (Cockcroft-Gault) 10.1 BUN/Creatinine Ratio 5 (6-20) Glucose Level 222 mg/dL (70-99) Calcium Level 8.4 mg/dL (8.5-10.1) Total Bilirubin 0.3 mg/dL (0.2-1.0) Aspartate Amino Transf (AST/SGOT) 7 U/L (15-37) Alanine Aminotransferase (ALT/SGPT) 11 U/L (14-59) Alkaline Phosphatase 65 U/L (46-116) Total Protein 7.1 g/dL (6.4-8.2) Albumin 2.2 g/dL (3.4-5.0) Albumin/Globulin Ratio 0.4 (1.0-1.7) Test 01/06/19 12:43 01/06/19 16:21 01/06/19 20:33 01/07/19 07:24 O2 Saturation 92 % (92-99) Arterial Blood pH 7.34 (7.35-7.45) Arterial Blood pCO2 at Patient Temp 66 mmHg (35-46) Arterial Blood pO2 at Patient Temp 67 mmHg (65-108) Arterial Blood HCO3 35 mmol/L (21-28) Arterial Blood Base Excess 8 mmol/L (-3-3) FiO2 35 Glucose (Fingerstick) 159 mg/dL (70-99) 196 mg/dL (70-99) 140 mg/dL (70-99) Laboratory Tests Test 01/06/19 12:19 01/06/19 12:43 01/06/19 16:21 01/06/19 20:33 Glucose (Fingerstick) 146 mg/dL (70-99) 159 mg/dL (70-99) 196 mg/dL (70-99) O2 Saturation 92 % (92-99) Arterial Blood pH 7.34 (7.35-7.45) Arterial Blood pCO2 at Patient Temp 66 mmHg (35-46) Arterial Blood pO2 at Patient Temp 67 mmHg (65-108) Arterial Blood HCO3 35 mmol/L (21-28) Arterial Blood Base Excess 8 mmol/L (-3-3) FiO2 35 Test 01/07/19 07:24 Glucose (Fingerstick) 140 mg/dL (70-99) Microbiology 12/27/18 Aerobic Culture - Final, Complete 12/27/18 Aerobic Culture Result 1 (MANPREET) - Final, Complete 12/27/18 Aerobic Culture Result 2 (MANPREET) - Final, Complete 12/27/18 Antimicrobic Susceptibility - Final, Complete 12/27/18 Gram Stain - Final, Complete 12/27/18 Gram Stain Result 1 (MANPREET) - Final, Complete 12/27/18 Gram Stain Result 2 (MANPREET) - Final, Complete 12/27/18 Gram Stain Result 3 (MANPREET) - Final, Complete Medications Current Medications Ondansetron HCl (Zofran) 4 mg PRN Q6HRS PRN IV NAUSEA/VOMITING Last administered on 01/05/19 16:25; Start 12/27/18 at 16:30 Calcium Carbonate/ Glycine (Tums) 500 mg PRN Q3HRS PRN PO UPSET STOMACH; Start 12/27/18 at 16:30 Zolpidem Tartrate (Ambien) 5 mg PRN QHS PRN PO INSOMNIA, MAY REPEAT IN 1HR; Start 12/27/18 at 16:30 Oxycodone HCl (Roxicodone) 5 mg PRN Q3HRS PRN PO BREAKTHROUGH PAIN Last administered on 01/07/19 04:13; Start 12/27/18 at 16:30 Morphine Sulfate (Morphine Sulfate) 1 mg PRN Q1HR PRN IV PAIN; Start 12/27/18 at 16:30; Stop 12/27/18 at 16:39; Status DC Acetaminophen (Tylenol) 650 mg PRN Q6HRS PRN PO Headaches, Temp > 101.5F; Start 12/27/18 at 16:30 Docusate Sodium (Colace) 100 mg BID PO Last administered on 01/07/19 08:49; Start 12/27/18 at 21:00 Magnesium Hydroxide (Milk Of Magnesia) 2,400 mg PRN Q12HR PRN PO CONSTIPATION Last administered on 01/05/19 08:57; Start 12/27/18 at 16:30 Bisacodyl (Dulcolax Supp) 10 mg PRN DAILY PRN NC CONSTIPATION Last administered on 01/07/19 04:12; Start 12/27/18 at 16:30 Ondansetron HCl (Zofran) 4 mg PRN Q6HRS PRN IVP NAUSEA/VOMITING; Start 12/27/18 at 16:30; Stop 12/28/18 at 11:31; Status DC Clonidine HCl (Catapres) 0.1 mg PRN Q1HR PRN PO HYPERTENSION; Start 12/27/18 at 16:30 Aspirin (Children'S Aspirin) 81 mg DAILY PO Last administered on 01/07/19 08:50; Start 12/28/18 at 09:00 Atorvastatin Calcium (Lipitor) 20 mg HS PO Last administered on 01/06/19 21:10; Start 12/27/18 at 21:00 Carvedilol (Coreg) 6.25 mg BIDWMEALS PO Last administered on 10/24/19at 17:39; Start 12/27/18 at 17:00; Stop 12/30/18 at 09:02; Status DC Diclofenac Sodium (Voltaren) 100 charan PRN QID PRN TP PAIN; Start 12/27/18 at 16:30; Stop 01/06/19 at 12:11; Status DC Ferrous Sulfate (Feosol) 325 mg TIDWMEALS PO Last administered on 01/07/19at 08:50; Start 12/27/18 at 17:00 Acetaminophen/ Hydrocodone Bitart (Lortab 10/325) 1 tab PRN Q6HRS PRN PO MODERATE PAIN Last administered on 01/05/19at 02:02; Start 12/27/18 at 16:30 Levothyroxine Sodium (Synthroid) 150 mcg DAILYAC PO Last administered on 01/07/19at 04:13; Start 12/28/18 at 07:30 Losartan Potassium (Cozaar) 25 mg DAILY PO ; Start 12/28/18 at 09:00; Stop 12/31/18 at 09:09; Status DC Non-Formulary Medication (Albuterol Sulfate (Ventolin Hfa Inhaler)) 2 puff QID INH ; Start 12/27/18 at 17:00; Status UNV Non-Formulary Medication (Fluticasone/ Vilanterol (Breo Ellipta 100-25 Mcg Inh)) 1 puff DAILY PRN IH daily; Start 12/27/18 at 16:30; Status UNV Insulin Human Lispro (HumaLOG) 10 units TIDWMEALS SQ Last administered on 12/30/18at 20:05; Start 12/27/18 at 17:30; Stop 12/31/18 at 07:32; Status DC Pantoprazole Sodium (Protonix) 40 mg DAILYAC PO Last administered on 01/07/19at 08:49; Start 12/28/18 at 07:30 Albuterol Sulfate (Ventolin Neb Soln) 2.5 mg RTQID NEB Last administered on 01/07/19at 07:27; Start 12/27/18 at 20:00 Budesonide (Pulmicort) 0.5 mg RTBID NEB Last administered on 01/07/19at 07:27; Start 12/27/18 at 20:00 Morphine Sulfate (Morphine Sulfate) 2 mg PRN Q2HR PRN IV MODERATE PAIN Last administered on 01/04/19at 13:26; Start 12/27/18 at 16:45 Cefepime HCl (Maxipime) 1 gm Q24H IVP Last administered on 01/06/19at 21:22; Start 12/27/18 at 18:00 Vancomycin HCl (Vanco Per Pharmacy) 1 each PRN DAILY PRN MC SEE COMMENTS Last administered on 01/07/19at 09:44; Start 12/27/18 at 17:15 Vancomycin HCl 1.5 gm/Sodium Chloride 500 ml @ 250 mls/hr 1X ONCE IV Last administered on 12/27/18at 18:02; Start 12/27/18 at 17:30; Stop 12/27/18 at 19:29; Status DC Vancomycin HCl (Vancomycin Random Level) 1 each 1X ONCE MC Last administered on 12/28/18at 06:00; Start 12/28/18 at 06:00; Stop 12/28/18 at 06:01; Status DC Sodium Polystyrene Sulfonate (Kayexalate) 15 gm 1X ONCE PO Last administered on 12/28/18at 05:57; Start 12/28/18 at 05:45; Stop 12/28/18 at 05:46; Status DC Sodium Chloride 1,000 ml @ 1,000 mls/hr Q1H PRN IV hypotension; Start 12/28/18 at 08:10; Stop 12/28/18 at 14:09; Status DC Albumin Human 200 ml @ 200 mls/hr 1X PRN PRN IV Hypotension; Start 12/28/18 at 08:15; Stop 12/28/18 at 14:14; Status DC Acetaminophen (Tylenol) 500 mg 1X PRN PRN PO MILD PAIN / TEMP; Start 12/28/18 at 08:15; Stop 12/29/18 at 08:14; Status DC Diphenhydramine HCl (Benadryl) 25 mg 1X PRN PRN IV ITCHING; Start 12/28/18 at 08:15; Stop 12/29/18 at 08:14; Status DC Diphenhydramine HCl (Benadryl) 25 mg 1X PRN PRN IV ITCHING; Start 12/28/18 at 08:15; Stop 12/29/18 at 08:14; Status DC Sodium Chloride 1,000 ml @ 400 mls/hr Q2H30M PRN IV PATENCY; Start 12/28/18 at 08:10; Stop 12/28/18 at 20:09; Status DC Info (PHARMACY MONITORING -- do not chart) 1 each PRN DAILY PRN MC SEE COMMENTS; Start 12/28/18 at 08:15; Stop 12/30/18 at 13:48; Status DC Vancomycin HCl 500 mg/Sodium Chloride 100 ml @ 100 mls/hr QMWF IV Last administered on 01/06/19at 16:23; Start 12/30/18 at 16:00 Lactobacillus Rhamnosus (Culturelle) 1 cap BID PO Last administered on 01/07/19at 08:49; Start 12/28/18 at 21:00 Iodixanol (Visipaque 320) 100 ml STK-MED ONCE .ROUTE ; Start 12/29/18 at 09:27; Stop 12/29/18 at 09:27; Status DC Lidocaine HCl (Buffered Lidocaine 1%) 3 ml STK-MED ONCE .ROUTE ; Start 12/29/18 at 09:27; Stop 12/29/18 at 09:27; Status DC Heparin Sodium/ Sodium Chloride 500 ml @ As Directed STK-MED ONCE .ROUTE ; Start 12/29/18 at 09:27; Stop 12/29/18 at 09:27; Status DC Midazolam HCl (Versed) 2 mg STK-MED ONCE .ROUTE ; Start 12/29/18 at 09:29; S top 12/29/18 at 09:29; Status DC Fentanyl Citrate (Fentanyl 2ml Vial) 100 mcg STK-MED ONCE .ROUTE ; Start 12/29/18 at 09:29; Stop 12/29/18 at 09:29; Status DC Heparin Sodium (Porcine) (Heparin Sodium) 10,000 unit STK-MED ONCE .ROUTE ; Start 12/29/18 at 09:29; Stop 12/29/18 at 09:30; Status DC Heparin Sodium/ Sodium Chloride (HEPARIN for ARTERIAL LINE FLUSH) 1,000 unit 1X ONCE IART Last administered on 12/29/18at 10:00; Start 12/29/18 at 10:00; Stop 12/29/18 at 10:01; Status DC Lidocaine HCl (Buffered Lidocaine 1%) 3 ml 1X ONCE IJ Last administered on 12/29/18at 10:00; Start 12/29/18 at 10:00; Stop 12/29/18 at 10:01; Status DC Midazolam HCl (Versed) 2 mg 1X ONCE IV Last administered on 12/29/18at 10:00; Start 12/29/18 at 10:00; Stop 12/29/18 at 10:01; Status DC Fentanyl Citrate (Fentanyl 2ml Vial) 100 mcg 1X ONCE IV Last administered on 12/29/18at 10:00; Start 12/29/18 at 10:00; Stop 12/29/18 at 10:01; Status DC Iodixanol (Visipaque 320) 100 ml 1X ONCE IART Last administered on 12/29/18at 10:00; Start 12/29/18 at 10:00; Stop 12/29/18 at 10:01; Status DC Heparin Sodium (Porcine) (Heparin Sodium) 3,000 unit 1X ONCE IV Last administered on 12/29/18at 10:30; Start 12/29/18 at 10:30; Stop 12/29/18 at 10:32; Status DC Iodixanol (Visipaque 320) 50 ml STK-MED ONCE .ROUTE ; Start 12/29/18 at 10:43; Stop 12/29/18 at 10:43; Status DC Iodixanol (Visipaque 320) 50 ml 1X ONCE IART Last administered on 12/29/18at 10:45; Start 12/29/18 at 10:45; Stop 12/29/18 at 10:46; Status DC Info (CONTRAST GIVEN -- Rx MONITORING) 1 each PRN DAILY PRN MC SEE COMMENTS; Start 12/29/18 at 11:00; Stop 12/31/18 at 10:59; Status DC Carvedilol (Coreg) 3.125 mg BIDWMEALS PO Last administered on 01/07/19at 08:50; Start 12/30/18 at 09:00 Insulin Glargine (Lantus Syringe) 20 unit QHS SQ Last administered on 12/30/18at 21:00; Start 12/30/18 at 21:00; Stop 12/31/18 at 07:32; Status DC Insulin Glargine (Lantus Syringe) 10 unit ONCE ONCE SQ Last administered on 12/30/18at 09:48; Start 12/30/18 at 10:00; Stop 12/30/18 at 10:01; Status DC Sodium Chloride 1,000 ml @ 1,000 mls/hr Q1H PRN IV hypotension; Start 12/30/18 at 12:21; Stop 12/30/18 at 18:20; Status DC Diphenhydramine HCl (Benadryl) 25 mg 1X PRN PRN IV ITCHING; Start 12/30/18 at 12:30; Stop 12/31/18 at 12:29; Status DC Diphenhydramine HCl (Benadryl) 25 mg 1X PRN PRN IV ITCHING; Start 12/30/18 at 12:30; Stop 12/31/18 at 12:29; Status DC Sodium Chloride 1,000 ml @ 400 mls/hr Q2H30M PRN IV PATENCY; Start 12/30/18 at 12:21; Stop 12/31/18 at 00:20; Status DC Info (PHARMACY MONITORING -- do not chart) 1 each PRN DAILY PRN MC SEE COMMENTS; Start 12/30/18 at 12:30; Stop 01/04/19 at 14:19; Status DC Insulin Human Lispro (HumaLOG) 15 units 1X ONCE SQ Last administered on 12/30/18at 22:59; Start 12/30/18 at 23:00; Stop 12/30/18 at 23:01; Status DC Insulin Glargine (Lantus Syringe) 30 unit QHS SQ Last administered on 01/06/19at 21:16; Start 12/31/18 at 21:00 Insulin Human Lispro (HumaLOG) 15 units TIDWMEALS SQ Last administered on at 08:22; Start 12/31/18 at 08:00; Stop 01/01/19 at 08:35; Status DC Insulin Human Lispro (HumaLOG) 8 units TIDWMEALS SQ Last administered on 01/01/19at 16:52; Start 01/01/19 at 12:00; Stop 01/02/19 at 07:40; Status DC Insulin Human Lispro (HumaLOG) 12 units 1X ONCE SQ Last administered on 01/01/19at 21:14; Start 01/01/19 at 21:00; Stop 01/01/19 at 21:01; Status DC Losartan Potassium (Cozaar) 25 mg DAILY PO Last administered on 01/07/19at 08:50; Start 01/02/19 at 09:00 Insulin Human Lispro (HumaLOG) 10 units TIDWMEALS SQ Last administered on 01/07/19at 08:59; Start 01/02/19 at 07:45 Sodium Chloride 1,000 ml @ 1,000 mls/hr Q1H PRN IV hypotension; Start 01/02/19 at 08:18; Stop 01/02/19 at 14:17; Status DC Acetaminophen (Tylenol) 500 mg 1X PRN PRN PO MILD PAIN / TEMP; Start 01/02/19 at 08:30; Stop 01/03/19 at 08:29; Status DC Diphenhydramine HCl (Benadryl) 25 mg 1X PRN PRN IV ITCHING; Start 01/02/19 at 08:30; Stop 01/03/19 at 08:29; Status DC Diphenhydramine HCl (Benadryl) 25 mg 1X PRN PRN IV ITCHING; Start 01/02/19 at 08:30; Stop 01/03/19 at 08:29; Status DC Sodium Chloride 1,000 ml @ 400 mls/hr Q2H30M PRN IV PATENCY; Start 01/02/19 at 08:18; Stop 01/02/19 at 20:17; Status DC Info (PHARMACY MONITORING -- do not chart) 1 each PRN DAILY PRN MC SEE COMMENTS; Start 01/02/19 at 08:30; Status UNV Vancomycin HCl (Vancomycin Random Level) 1 each 1X ONCE MC Last administered on 01/04/19at 07:30; Start 01/04/19 at 06:00; Stop 01/04/19 at 06:01; Status DC Iodixanol (Visipaque 320) 100 ml STK-MED ONCE .ROUTE ; Start 01/02/19 at 13:20; Stop 01/02/19 at 13:20; Status DC Lidocaine HCl (Buffered Lidocaine 1%) 3 ml STK-MED ONCE .ROUTE ; Start 01/02/19 at 13:20; Stop 01/02/19 at 13:21; Status DC Heparin Sodium/ Sodium Chloride 1,000 ml @ As Directed STK-MED ONCE .ROUTE ; Start 01/02/19 at 13:21; Stop 01/02/19 at 13:21; Status DC Midazolam HCl (Versed) 2 mg STK-MED ONCE .ROUTE ; Start 01/02/19 at 13:52; Stop 01/02/19 at 13:53; Status DC Fentanyl Citrate (Fentanyl 2ml Vial) 100 mcg STK-MED ONCE .ROUTE ; Start 01/02/19 at 13:52; Stop 01/02/19 at 13:53; Status DC Iodixanol (Visipaque 320) 100 ml STK-MED ONCE .ROUTE ; Start 01/02/19 at 14:22; Stop 01/02/19 at 14:22; Status DC Heparin Sodium/ Sodium Chloride (HEPARIN for ARTERIAL LINE FLUSH) 1,000 unit 1X ONCE IART Last administered on 01/02/19at 14:51; Start 01/02/19 at 14:45; Stop 01/02/19 at 15:04; Status DC Heparin Sodium/ Sodium Chloride (HEPARIN for ARTERIAL LINE FLUSH) 1,000 unit 1X ONCE IART Last administered on 01/02/19at 14:45; Start 01/02/19 at 14:45; Stop 01/02/19 at 15:04; Status DC Lidocaine HCl (Buffered Lidocaine 1%) 2 ml 1X ONCE IJ Last administered on 01/02/19at 14:52; Start 01/02/19 at 14:45; Stop 01/02/19 at 15:04; Status DC Midazolam HCl (Versed) 1 mg 1X ONCE IV Last administered on 01/02/19at 14:52; Start 01/02/19 at 14:45; Stop 01/02/19 at 15:04; Status DC Fentanyl Citrate (Fentanyl 2ml Vial) 25 mcg 1X ONCE IV Last administered on 01/02/19at 14:53; Start 01/02/19 at 14:45; Stop 01/02/19 at 15:04; Status DC Iodixanol (Visipaque 320) 100 ml 1X ONCE IART Last administered on 01/02/19at 14:52; Start 01/02/19 at 14:45; Stop 01/02/19 at 15:04; Status DC Ondansetron HCl (Zofran) 4 mg PRN Q6HRS PRN IV NAUSEA/VOMITING; Start 01/03/19 at 11:00; Stop 01/04/19 at 10:59; Status DC Morphine Sulfate (Morphine Sulfate) 1 mg PRN Q10MIN PRN IV SEVERE PAIN 7-10; Start 01/03/19 at 11:00; Stop 01/04/19 at 10:59; Status DC Ringer's Solution 1,000 ml @ 30 mls/hr Q24H IV ; Start 01/03/19 at 10:49; Stop 01/03/19 at 22:48; Status DC Lidocaine HCl (Xylocaine-Mpf 1% 2ml Vial) 2 ml PRN 1X PRN ID PRIOR TO IV START; Start 01/03/19 at 11:00; Stop 01/04/19 at 10:59; Status DC Hydromorphone HCl (Dilaudid) 0.5 mg PRN Q10MIN PRN IV SEV PAIN, Second choice Last administered on 01/03/19at 19:10; Start 01/03/19 at 11:00; Stop 01/04/19 at 10:59; Status DC Prochlorperazine Edisylate (Compazine) 5 mg PACU PRN PRN IV NAUSEA, MRX1 Last administered on 01/03/19at 18:30; Start 01/03/19 at 11:00; Stop 01/04/19 at 10:59; Status DC Insulin Human Lispro (HumaLOG VIAL for OP,RR ONLY) 0-10 units PRN Q1HR PRN SQ PER PROTOCOL Last administered on 01/03/19at 19:14; Start 01/03/19 at 15:15; Stop 01/04/19 at 15:14; Status DC Cefazolin Sodium 1 gm/Dextrose 50 ml @ 100 mls/hr 1X PREOP ONCE IV ; Start 01/03/19 at 15:45; Stop 01/03/19 at 16:14; Status UNV Cefazolin Sodium 50 ml @ 100 mls/hr 1X ONCE IV ; Start 01/03/19 at 16:00; Stop 01/03/19 at 16:29; Status DC Heparin Sodium (Porcine) 5000 unit/Sodium Chloride 505 ml @ 505 mls/hr 1X ONCE IRR ; Start 01/03/19 at 16:17; Stop 01/03/19 at 17:16; Status DC Lidocaine HCl 20 ml STK-MED ONCE .ROUTE ; Start 01/03/19 at 16:17; Stop 01/03/19 at 16:17; Status DC Cellulose (Surgicel Fibrillar 1x2) 1 each STK-MED ONCE .ROUTE ; Start 01/03/19 at 16:17; Stop 01/03/19 at 16:17; Status DC Cefazolin Sodium 1 gm/Sodium Chloride 500 ml @ 500 mls/hr 1X ONCE IRR Last administered on 01/03/19at 17:05; Start 01/03/19 at 16:18; Stop 01/03/19 at 17:17; Status DC Lidocaine HCl 20 ml STK-MED ONCE .ROUTE ; Start 01/03/19 at 16:17; Stop 01/03/19 at 16:18; Status Cancel Morphine Sulfate (Morphine Sulfate) 2 mg STK-MED ONCE .ROUTE ; Start 01/03/19 at 18:04; Stop 01/03/19 at 18:05; Status DC Ondansetron HCl (Zofran) 4 mg STK-MED ONCE .ROUTE ; Start 01/03/19 at 18:07; Stop 01/03/19 at 18:07; Status DC Propofol 20 ml @ As Directed STK-MED ONCE IV ; Start 01/03/19 at 18:07; Stop 01/03/19 at 18:07; Status DC Lidocaine HCl (Lidocaine Pf 2% Vial) 5 ml STK-MED ONCE .ROUTE ; Start 01/03/19 at 18:07; Stop 01/03/19 at 18:07; Status DC Phenylephrine HCl (PHENYLEPHRINE in 0.9% NACL PF) 1 mg STK-MED ONCE IV ; Start 01/03/19 at 18:07; Stop 01/03/19 at 18:07; Status DC Dexamethasone Sodium Phosphate (Decadron) 4 mg STK-MED ONCE .ROUTE ; Start 01/03/19 at 18:07; Stop 01/03/19 at 18:07; Status DC Ephedrine Sulfate (ePHEDrine PF IN SALINE SYRINGE) 50 mg STK-MED ONCE IV ; Start 01/03/19 at 18:07; Stop 01/03/19 at 18:07; Status DC Sevoflurane (Ultane) 60 ml STK-MED ONCE IH ; Start 01/03/19 at 18:07; Stop 01/03/19 at 18:07; Status DC Hydromorphone HCl (Dilaudid) 2 mg STK-MED ONCE .ROUTE ; Start 01/03/19 at 18:11; Stop 01/03/19 at 18:11; Status DC Prochlorperazine Edisylate (Compazine) 10 mg STK-MED ONCE .ROUTE ; Start 01/03/19 at 18:18; Stop 01/03/19 at 18:18; Status DC Cefazolin Sodium (Ancef 1gm Ivpb For Omni) 1 gm STK-MED ONCE IV ; Start 01/03/19 at 16:00; Stop 01/04/19 at 08:42; Status DC Lidocaine/ Epinephrine (LIDOCAINE 1%-EPI 1:100,000 Multi-Dose) 20 ml STK-MED ONCE .ROUTE ; Start 01/04/19 at 10:53; Stop 01/04/19 at 10:53; Status DC Midazolam HCl (Versed) 2 mg 1X ONCE IV Last administered on 01/04/19at 12:27; Start 01/04/19 at 12:00; Stop 01/04/19 at 12:04; Status DC Fentanyl Citrate (Fentanyl 2ml Vial) 100 mcg 1X ONCE IV Last administered on 01/04/19at 12:27; Start 01/04/19 at 12:00; Stop 01/04/19 at 12:05; Status DC Lidocaine/ Epinephrine (LIDOCAINE 1%-EPI 1:100,000 Multi-Dose) 20 ml 1X ONCE SQ Last administered on 01/04/19at 12:28; Start 01/04/19 at 12:00; Stop 01/04/19 at 12:04; Status DC Cefazolin Sodium 50 ml @ 100 mls/hr 1X ONCE IV ; Start 01/04/19 at 12:00; Stop 01/04/19 at 12:29; Status Cancel Cefazolin Sodium 0 ml @ As Directed STK-MED ONCE IV ; Start 01/04/19 at 12:04; Stop 01/04/19 at 12:05; Status DC Midazolam HCl (Versed) 2 mg STK-MED ONCE .ROUTE ; Start 01/04/19 at 12:05; Stop 01/04/19 at 12:05; Status DC Fentanyl Citrate (Fentanyl 2ml Vial) 100 mcg STK-MED ONCE .ROUTE ; Start 01/04/19 at 12:05; Stop 01/04/19 at 12:05; Status DC Hydromorphone HCl (Dilaudid) 1 mg PRN Q3HRS PRN IV SEVERE PAIN Last administered on 01/04/19at 14:28; Start 01/04/19 at 14:00 Sodium Chloride 1,000 ml @ 1,000 mls/hr Q1H PRN IV hypotension; Start 01/04/19 at 14:14; Stop 01/04/19 at 20:13; Status DC Diphenhydramine HCl (Benadryl) 25 mg 1X PRN PRN IV ITCHING; Start 01/04/19 at 14:15; Stop 01/05/19 at 14:14; Status DC Diphenhydramine HCl (Benadryl) 25 mg 1X PRN PRN IV ITCHING; Start 01/04/19 at 14:15; Stop 01/05/19 at 14:14; Status DC Sodium Chloride 1,000 ml @ 400 mls/hr Q2H30M PRN IV PATENCY; Start 01/04/19 at 14:14; Stop 01/05/19 at 02:13; Status DC Info (PHARMACY MONITORING -- do not chart) 1 each PRN DAILY PRN MC SEE COMMENTS; Start 01/04/19 at 14:15; Stop 01/06/19 at 12:08; Status DC Sodium Chloride 500 ml @ 500 mls/hr 1X ONCE IV ; Start 01/06/19 at 07:45; Stop 01/06/19 at 08:44; Status DC Sodium Chloride 1,000 ml @ 1,000 mls/hr Q1H PRN IV hypotension; Start 01/06/19 at 08:10; Stop 01/06/19 at 14:09; Status DC Acetaminophen (Tylenol) 500 mg 1X PRN PRN PO MILD PAIN / TEMP; Start 01/06/19 at 08:15; Stop 01/07/19 at 08:14; Status DC Diphenhydramine HCl (Benadryl) 25 mg 1X PRN PRN IV ITCHING; Start 01/06/19 at 08:15; Stop 01/07/19 at 08:14; Status DC Diphenhydramine HCl (Benadryl) 25 mg 1X PRN PRN IV ITCHING; Start 01/06/19 at 08:15; Stop 01/07/19 at 08:14; Status DC Sodium Chloride 1,000 ml @ 400 mls/hr Q2H30M PRN IV PATENCY; Start 01/06/19 at 08:10; Stop 01/06/19 at 20:09; Status DC Info (PHARMACY MONITORING -- do not chart) 1 each PRN DAILY PRN MC SEE COMMENTS; Start 01/06/19 at 08:15 Diclofenac Sodium (Voltaren) 1 charan PRN QID PRN TP JOINT PAIN; Start 01/06/19 at 12:15 Darbepoetin Abisai (ARANESP for DIALYSIS PTS) 60 mcg WEEKLYHS SQ Last administered on 01/06/19at 21:13; Start 01/06/19 at 21:00 Active Scripts Active Reported Augmentin 875-125 Tablet (Amoxicillin/Potassium Clav) 1 Each Tablet 1 Tab PO BID Protonix (Pantoprazole Sodium) 20 Mg Tablet.dr 40 Mg PO DAILY Lipitor (Atorvastatin Calcium) 20 Mg Tablet 20 Mg PO HS Aspirin 81 Mg Tab.chew 1 Tab PO DAILY Losartan Potassium 50 Mg Tablet 25 Mg PO DAILY Tums (Calcium Carbonate) 200 Mg Tab.chew 2 Tab PO TIDAC Breo Ellipta 100-25 Mcg Inh (Fluticasone/Vilanterol) 1 Each Aer.pow.ba 1 Puff IH DAILY PRN Ventolin Hfa Inhaler (Albuterol Sulfate) 18 Gm Hfa.aer.ad 2 Puff INH QID Ferrous Sulfate 325 Mg Tablet 325 Mg PO TID Docusate Sodium 100 Mg Capsule 100 Mg PO BID Humulin R U-500 Kwikpen (Insulin Regular, Human) 500 Unit/1 Ml Insuln.pen 10 Unit SQ TIDAC U-500 Voltaren (Diclofenac Sodium) 100 Gm Gel..gram. 100 Gm TP PRN QID PRN [place] 10-325 Tablet (Acetaminophen/Hydrocodone Bitart) 1 Each Tablet 1 Tab PO PRN Q6HRS PRN Levothyroxine Sodium 150 Mcg Tablet 150 Mcg PO DAILYAC Carvedilol (Carvedilol) 6.25 Mg Tablet 6.25 Mg PO BIDWMEALS Vitals/I & O Vital Sign - Last 24 Hours 01/06/19 01/06/19 01/06/19 01/06/19 11:07 11:12 12:41 12:49 Resp 21 Pulse Ox 100 100 93 100 O2 Delivery BiPAP/CPAP BiPAP/CPAP BiPAP/CPAP BiPAP/CPAP 01/06/19 01/06/19 01/06/19 01/06/19 14:00 15:00 15:41 15:57 Temp 97.8 97.8 Pulse 92 Resp 19 20 B/P (MAP) 115/43 (67) Pulse Ox 94 97 100 100 O2 Delivery BiPAP/CPAP BiPAP/CPAP BiPAP/CPAP BiPAP/CPAP O2 Flow Rate 2.0 01/06/19 01/06/19 01/06/19 01/06/19 16:21 16:29 19:00 19:51 Temp 98.4 98.4 Pulse 92 92 Resp 20 20 B/P (MAP) 115/43 129/40 (69) Pulse Ox 95 95 96 O2 Delivery Nasal Cannula Nasal Cannula Nasal Cannula O2 Flow Rate 2.0 3.0 01/06/19 01/06/19 01/06/19 01/06/19 20:30 21:11 22:11 23:03 Temp 97.8 97.8 Pulse 91 Resp 20 22 20 B/P (MAP) 112/36 (61) Pulse Ox 97 O2 Delivery Nasal Cannula Nasal Cannula BiPAP/CPAP BiPAP/CPAP O2 Flow Rate 3.0 2.0 01/07/19 01/07/19 01/07/19 01/07/19 03:25 04:13 05:13 07:00 Temp 97.5 98.0 97.5 98.0 Pulse 96 91 Resp 20 20 20 20 B/P (MAP) 123/42 (69) 125/58 (80) Pulse Ox 96 96 O2 Delivery BiPAP/CPAP Nasal Cannula Nasal Cannula BiPAP/CPAP O2 Flow Rate 2.0 2.0 01/07/19 01/07/19 01/07/19 01/07/19 07:31 07:32 08:50 08:50 Pulse 91 91 B/P (MAP) 125/58 125/58 Pulse Ox 97 97 O2 Delivery Nasal Cannula Nasal Cannula O2 Flow Rate 3.0 3.0 Intake and Output 01/06/19 01/06/19 01/07/19 15:00 23:00 07:00 Intake Total 120 ml 240 ml Output Total 0 ml Balance 120 ml 240 ml 0 ml KIMBERLY LOPEZ MD Jan 07, 2019 10:54
[2019-01-07 11:00] VITALS: BP 118/46
[2019-01-07 15:00] VITALS: BP 123/54
--- NOTE | 2019-01-07 15:54 | PDOC ---
Renal-Progress Notes Subjective Notes Notes NO NEW COMPLAINTS History of Present Illness Hx of present illness STABLE Vitals Vitals Vital Signs Date Time Temp Pulse Resp B/P (MAP) Pulse Ox O2 Delivery O2 Flow Rate FiO2 01/07/19 15:22 Nasal Cannula 3.0 01/07/19 15:00 98.0 90 20 123/54 (77) 96 98.0 Weight Weight [ ] I.O. Intake and Output Intake and Output 01/07/19 07:00 Intake Total 360 ml Output Total 0 ml Balance 360 ml Intake Oral 360 ml Output Urine Total 0 ml # Bowel Movements 1 Labs Labs Laboratory Tests Test 01/06/19 16:21 01/06/19 20:33 01/07/19 07:24 01/07/19 10:50 Glucose (Fingerstick) 159 mg/dL (70-99) 196 mg/dL (70-99) 140 mg/dL (70-99) 190 mg/dL (70-99) Micro Micro Microbiology 12/27/18 Aerobic Culture - Final, Complete 12/27/18 Aerobic Culture Result 1 (MANPREET) - Final, Complete 12/27/18 Aerobic Culture Result 2 (MANPREET) - Final, Complete 12/27/18 Antimicrobic Susceptibility - Final, Complete 12/27/18 Gram Stain - Final, Complete 12/27/18 Gram Stain Result 1 (MANPREET) - Final, Complete 12/27/18 Gram Stain Result 2 (MANPREET) - Final, Complete 12/27/18 Gram Stain Result 3 (MANPREET) - Final, Complete Review of Systems Constitutional: yes: weakness, alert Eyes: Yes: no symptom reported Pulmonary: Yes no symptom reported Cardiovascular: Yes no symptom reported Gastrointestional: Yes: no symptom reported Musculoskeletal: Yes: hand pain Skin: Yes no symptom reported Psychiatric/Neurological: Yes: no symptom reported Endocrine: Yes: no symptom reported Physical Exam General Appearance: no apparent distress Skin: warm Respiratory: decreased breath sounds Heart: S1S2 Abdomen: soft Neurology: oriented Assessment Assessment IMP ESRD S/P LEFT FA RC AVF LIGATION S/P 1ST LEFT FINGER AMP AND DEBRIDEMENT OF THUMB AND 3RD FINGER LEUKOCYTOSIS DM II HTN PLAN HD WEDNESDAY ANTIBIOTICS RUTH NEEDED WILL FOLLOW GEOVANNI RUIZ MD Jan 07, 2019 15:54
--- NOTE | 2019-01-07 17:44 | PDOC ---
PULMONARY PROGRESS NOTES Subjective The patient is a 68-year-old that was initially admitted back on 12/27/2018. She has comorbidities, end-stage renal disease, coronary artery disease with previous coronary artery bypass grafting, type 2 diabetes, chronic obstructive pulmonary disease, obesity, and hypothyroidism. She was directly admitted from the wound care. She had a left thumb wound. Since then the patient has been seen by multiple services including Infectious Disease Service, has been on some antibiotics. On 01/03, she underwent surgical intervention for the ischemic changes to her right hand including gangrene of the left thumb. 01/06 Arterial blood gas was obtained revealing a pH of 7.26, PaCO2 of 67 and pO2 of 84. placed her on BiPAP. The arterial blood gas improved to a pH of 7.34, PaCO2 of 66, pO2 of 67. She has a history of sleep apnea but stopped using cpap. she did sleep with bipap last night and feels better. She has minimal tobacco smoke history having smoked a couple of cigarettes per day for ~ 10 years. Vitals Vital Signs Date Time Temp Pulse Resp B/P (MAP) Pulse Ox O2 Delivery O2 Flow Rate FiO2 01/07/19 17:05 90 123/54 01/07/19 15:22 Nasal Cannula 3.0 01/07/19 15:00 98.0 20 96 98.0 ROS: No Nausea, No Chest Pain, No Abdominal Pain, No Increase Cough General: Oriented X4, No acute distress Lungs: Clear Cardiovascular: S1, S2 Abdomen: Soft Neuro Exam: Alert, Oriented, No Focal Findings Labs Laboratory Tests Test 01/05/19 21:23 01/06/19 07:00 01/06/19 07:47 01/06/19 08:00 Glucose (Fingerstick) 202 mg/dL (70-99) 194 mg/dL (70-99) O2 Saturation 95 % (92-99) Arterial Blood pH 7.26 (7.35-7.45) Arterial Blood pCO2 at Patient Temp 67 mmHg (35-46) Arterial Blood pO2 at Patient Temp 84 mmHg (65-108) Arterial Blood HCO3 29 mmol/L (21-28) Arterial Blood Base Excess 1 mmol/L (-3-3) FiO2 24 White Blood Count 11.3 x10^3/uL (4.0-11.0) Red Blood Count 2.71 x10^6/uL (3.50-5.40) Hemoglobin 8.7 g/dL (12.0-15.5) Hematocrit 28.3 % (36.0-47.0) Mean Corpuscular Volume 104 fL (79-100) Mean Corpuscular Hemoglobin 32 pg (25-35) Mean Corpuscular Hemoglobin Concent 31 g/dL (31-37) Red Cell Distribution Width 14.8 % (11.5-14.5) Platelet Count 248 x10^3/uL (140-400) Neutrophils (%) (Auto) 79 % (31-73) Lymphocytes (%) (Auto) 9 % (24-48) Monocytes (%) (Auto) 9 % (0-9) Eosinophils (%) (Auto) 1 % (0-3) Basophils (%) (Auto) 1 % (0-3) Neutrophils # (Auto) 8.9 x10^3/uL (1.8-7.7) Lymphocytes # (Auto) 1.1 x10^3/uL (1.0-4.8) Monocytes # (Auto) 1.0 x10^3/uL (0.0-1.1) Eosinophils # (Auto) 0.2 x10^3/uL (0.0-0.7) Basophils # (Auto) 0.1 x10^3/uL (0.0-0.2) Sodium Level 138 mmol/L (136-145) Potassium Level 4.6 mmol/L (3.5-5.1) Chloride Level 100 mmol/L (98-107) Carbon Dioxide Level 31 mmol/L (21-32) Anion Gap 7 (6-14) Blood Urea Nitrogen 25 mg/dL (7-20) Creatinine 5.1 mg/dL (0.6-1.0) Estimated GFR (Cockcroft-Gault) 10.1 BUN/Creatinine Ratio 5 (6-20) Glucose Level 222 mg/dL (70-99) Calcium Level 8.4 mg/dL (8.5-10.1) Total Bilirubin 0.3 mg/dL (0.2-1.0) Aspartate Amino Transf (AST/SGOT) 7 U/L (15-37) Alanine Aminotransferase (ALT/SGPT) 11 U/L (14-59) Alkaline Phosphatase 65 U/L (46-116) Total Protein 7.1 g/dL (6.4-8.2) Albumin 2.2 g/dL (3.4-5.0) Albumin/Globulin Ratio 0.4 (1.0-1.7) Test 01/06/19 12:19 01/06/19 12:43 01/06/19 16:21 01/06/19 20:33 Glucose (Fingerstick) 146 mg/dL (70-99) 159 mg/dL (70-99) 196 mg/dL (70-99) O2 Saturation 92 % (92-99) Arterial Blood pH 7.34 (7.35-7.45) Arterial Blood pCO2 at Patient Temp 66 mmHg (35-46) Arterial Blood pO2 at Patient Temp 67 mmHg (65-108) Arterial Blood HCO3 35 mmol/L (21-28) Arterial Blood Base Excess 8 mmol/L (-3-3) FiO2 35 Test 01/07/19 07:24 01/07/19 10:50 01/07/19 16:51 Glucose (Fingerstick) 140 mg/dL (70-99) 190 mg/dL (70-99) 182 mg/dL (70-99) Laboratory Tests Test 01/06/19 20:33 01/07/19 07:24 01/07/19 10:50 01/07/19 16:51 Glucose (Fingerstick) 196 mg/dL (70-99) 140 mg/dL (70-99) 190 mg/dL (70-99) 182 mg/dL (70-99) Medications Active Scripts Medications Dose Route/Sig Max Daily Dose Days Date Category Dose Instructions Augmentin 875-125 Tablet (Amoxicillin/Potassium Clav) 1 Each Tablet 1 Tab PO BID 04/12/18 Reported Protonix (Pantoprazole Sodium) 20 Mg Tablet.dr 40 Mg PO DAILY 04/12/18 Reported Lipitor (Atorvastatin Calcium) 20 Mg Tablet 20 Mg PO HS 04/12/18 Reported Aspirin 81 Mg Tab.chew 1 Tab PO DAILY 04/12/18 Reported Losartan Potassium 50 Mg Tablet 25 Mg PO DAILY 04/12/18 Reported Tums (Calcium Carbonate) 200 Mg Tab.chew 2 Tab PO TIDAC 01/10/18 Reported Breo Ellipta 100-25 Mcg Inh (Fluticasone/Vilanterol) 1 Each Aer.pow.ba 1 Puff IH DAILY PRN 01/10/18 Reported Ventolin Hfa Inhaler (Albuterol Sulfate) 18 Gm Hfa.aer.ad 2 Puff INH QID 01/10/18 Reported Ferrous Sulfate 325 Mg Tablet 325 Mg PO TID 01/10/18 Reported Docusate Sodium 100 Mg Capsule 100 Mg PO BID 01/10/18 Reported Humulin R U-500 Kwikpen (Insulin Regular, Human) 500 Unit/1 Ml Insuln.pen 10 Unit SQ TIDAC 01/10/18 Reported U-500 Voltaren (Diclofenac Sodium) 100 Gm Gel..gram. 100 Gm TP PRN QID PRN 01/10/18 Reported [place] 10-325 Tablet (Acetaminophen/Hydrocodone Bitart) 1 Each Tablet 1 Tab PO PRN Q6HRS PRN 01/10/18 Reported Levothyroxine Sodium 150 Mcg Tablet 150 Mcg PO DAILYAC 01/10/18 Reported Carvedilol (Carvedilol) 6.25 Mg Tablet 6.25 Mg PO BIDWMEALS 01/10/18 Reported Impression . IMPRESSION: 1. [id number] hypercapnic hypoxemic respiratory failure, multifactorial. 2. sleep apnea and obesity-hypoventilation syndrome 3. Status post left arm radiocephalic fistula ligation. 4. Left thumb infection. 5. Leukocytosis. 6. Steal phenomenon. 7. End-stage renal disease. 8. Diabetes. 9. Prior history of methicillin-sensitive staphylococcus aureus and Klebsiella infection. Plan . PLAN: 1. Continue bipap with sleep 2. low flow oxygen. 3. Baseline chest x-ray. 4. Minimize respiratory depressants such as opiode anlagesics, diazepams HAZEL RAMSAY MD Jan 07, 2019 17:44
[2019-01-07 19:00] VITALS: BP 99/48
[2019-01-07] MEDS: CEFEPIME HCL IV Push 1 GM VIAL. IVP SCH (22:14)
[2019-01-07] MEDS: ATORVASTATIN CALCIUM 20 MG TABLET PO SCH (22:14)
[2019-01-07 23:02] VITALS: BP 90/34
[2019-01-07] MEDS: INSULIN GLARGINE SYRINGE. SQ SCH (23:52)
--- NOTE | 2019-01-07 23:58 | PDOC2 ---
CARDIOLOGY CONSULT NOTE CHEIF COMPLAINT: Heart failure evaluation HPI: 68 y.o woman with multiple comorbidities admitted for dyspnea and left arm steal syndrome due to AV fistula which has now been ligated. Cardiology asked to evaluate her for hx of HF. She sees Dr. Fairchild at [facility] and has had prior CABG and known HF. EF unknown. She at baseline is NYHA class 2-3 per family. No chest pain or dyspnea at rest. No syncope or palpitations. PMHX: HTN ESRD CAD s/p cABG Prior HF SOCHX: Lives with family. No alcohol, tob or illicits FAMHX: NC CURRENT MEDS: See MRAD Pertinent cardiac meds include asa, coreg, losartan and atorvastatin ALLERGIES: Allergies Coded Allergies Type Severity Reaction Last Updated Verified meperidine Allergy Intermediate 01/04/19 Yes ROS: Negative unless otherwise noted above in HPI PHYSICAL EXAM: Vital Signs/I&O: Vital Signs Date Time Temp Pulse Resp B/P (MAP) Pulse Ox O2 Delivery O2 Flow Rate FiO2 01/07/19 23:02 97.6 80 20 90/34 (52) 99 Nasal Cannula 97.6 01/07/19 20:35 3.0 I & O 01/06/19 01/06/19 01/07/19 15:00 23:00 07:00 Intake Total 120 ml 240 ml Output Total 0 ml Balance 120 ml 240 ml 0 ml Physical Exam: Debilitated elderly woman Left arm fistula ligated a/o x 3. left hard in wound wav trace LE edema soft abd normal heart tones. DIAGNOSTIC TESTING: labs/imaging reviewed Lab Laboratory Tests Test 01/07/19 07:24 01/07/19 10:50 01/07/19 16:51 01/07/19 20:24 Glucose (Fingerstick) 140 mg/dL (70-99) H 190 mg/dL (70-99) H 182 mg/dL (70-99) H 197 mg/dL (70-99) H Test 01/07/19 22:41 Glucose (Fingerstick) 182 mg/dL (70-99) H ASSESSMENT: 1. Presumed HF - etiology unclear (EF?) 2. ESRD 3. Labile BP 4. Dyslipidemia 5. PVD PLAN: 1, We will obtain echo. 2. Continue supportive care, She is on appropriate meds for HF. Unable to titrate meds up anymore for now. Discussed extensively with family at bedside. MEGAN HURTADO MD Jan 07, 2019 23:58
[2019-01-08 03:04] VITALS: BP 135/54
[2019-01-08] MEDS: oxyCODONE IR 5 MG TABLET PO PRN ×3 (04:26→17:53)
[2019-01-08 07:00] VITALS: BP 132/61
[2019-01-08] MEDS: ALBUTEROL SULFATE 2.5 MG/3 ML NEBU. NEB SCH ×4 (07:24→19:37)
[2019-01-08] MEDS: BUDESONIDE 0.5 MG/2 ML NEBU. NEB SCH ×2 (07:24→19:37)
[2019-01-08] MEDS: PANTOPRAZOLE 40 MG TABLET.DR. PO SCH (08:10)
[2019-01-08] MEDS: LEVOTHYROXINE 150 MCG TABLET PO SCH (08:10)
[2019-01-08] MEDS: LACTOBACILLUS RHAMNOSUS GG 1 CAPSULE. PO SCH ×2 (08:11→21:00)
[2019-01-08] MEDS: CARVEDILOL 3.125 MG TABLET. PO SCH ×2 (08:11→17:00)
[2019-01-08] MEDS: ASPIRIN CHEWABLE 81 MG TABLET. PO SCH (08:11)
[2019-01-08] MEDS: LOSARTAN POTASSIUM 25 MG TABLET. PO SCH (08:11)
[2019-01-08] MEDS: DOCUSATE SODIUM 100 MG CAPSULE. PO SCH ×2 (08:11→21:00)
[2019-01-08] MEDS: FERROUS SULFATE 325 MG TABLET. PO SCH ×3 (08:12→17:13)
[2019-01-08] MEDS: INSULIN LISPRO 300 UNITS/3 ML VIAL. SQ SCH ×3 (08:19→17:15)
--- NOTE | 2019-01-08 09:03 | PDOC ---
PROGRESS NOTES Chief Complaint Chief Complaint 1. CHF exacerbation , hypoxic RF - bipAP 11.2018, 2. Cellulitis left thumb, unroofed at Wound clinic, r.o osteomyelitis 3. 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 ESRD on HD, OLIGURIA 5. AOCD 6. MAXIMILIAN< Obesity, hypothyroidism, HTN, CAD hx, lipids- chronic stable 7. LABILE BP 8. Indwelling ICD 9 LABILE DM on cefepime and vanco renal dosing for dialysis local wound care 36 min pt exam, chart review, > 50% of time with exam, chart review, pt care coordination History of Present Illness History of Present Illness WIDE AWAKE today! Looks good, she feels good Wearing BIPAP at night, pulmo and cards got involved bec went into [facility] has ordered echo Pt follows with outside cards, she is on the right chf meds already SHe makes very minimal UO She now has tunnneled RT HD cath SHe has wound vac left thumb with wound care on board REFUSES SNU ADAMANTLY SHe has stable bilateral pitting edema PLAN: CPM GEt fluid off during HD? 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 OC/Op - clear NECK: Supple LUNGS: Clear bilaterally. HEART: S1, S2. ABDOMEN: Soft, obese. Decreased Bowel sounds, nontender but some distension. EXTREMITIES: Edema present, chronic. DERMATOLOGIC: Left hand with vac and dressing in place NEUROLOGIC: Alert, answers questions R chest HD cath - clean General: Alert, Oriented X3, Cooperative, No acute distress, Other Heart: Regular rate, Normal S1, Normal S2, No murmurs Lungs: Clear Abdomen: Normal bowel sounds, Soft, No tenderness Extremities: Other Skin: Other Labs LABS Laboratory Tests Test 01/07/19 10:50 01/07/19 16:51 01/07/19 20:24 01/07/19 22:41 Glucose (Fingerstick) 190 mg/dL (70-99) 182 mg/dL (70-99) 197 mg/dL (70-99) 182 mg/dL (70-99) Test 01/08/19 07:18 Glucose (Fingerstick) 188 mg/dL (70-99) Review of Systems Review of Systems weak , has only ambulated in room, all else neg Comment Review of Relevant I have reviewed the following items filippo (where applicable) has been applied. Labs Laboratory Tests Test 01/06/19 12:19 01/06/19 12:43 01/06/19 16:21 01/06/19 20:33 Glucose (Fingerstick) 146 mg/dL (70-99) 159 mg/dL (70-99) 196 mg/dL (70-99) O2 Saturation 92 % (92-99) Arterial Blood pH 7.34 (7.35-7.45) Arterial Blood pCO2 at Patient Temp 66 mmHg (35-46) Arterial Blood pO2 at Patient Temp 67 mmHg (65-108) Arterial Blood HCO3 35 mmol/L (21-28) Arterial Blood Base Excess 8 mmol/L (-3-3) FiO2 35 Test 01/07/19 07:24 01/07/19 10:50 01/07/19 16:51 01/07/19 20:24 Glucose (Fingerstick) 140 mg/dL (70-99) 190 mg/dL (70-99) 182 mg/dL (70-99) 197 mg/dL (70-99) Test 01/07/19 22:41 01/08/19 07:18 Glucose (Fingerstick) 182 mg/dL (70-99) 188 mg/dL (70-99) Laboratory Tests Test 01/07/19 10:50 01/07/19 16:51 01/07/19 20:24 01/07/19 22:41 Glucose (Fingerstick) 190 mg/dL (70-99) 182 mg/dL (70-99) 197 mg/dL (70-99) 182 mg/dL (70-99) Test 01/08/19 07:18 Glucose (Fingerstick) 188 mg/dL (70-99) Microbiology 12/27/18 Aerobic Culture - Final, Complete 12/27/18 Aerobic Culture Result 1 (MANPREET) - Final, Complete 12/27/18 Aerobic Culture Result 2 (MANPREET) - Final, Complete 12/27/18 Antimicrobic Susceptibility - Final, Complete 12/27/18 Gram Stain - Final, Complete 12/27/18 Gram Stain Result 1 (MANPREET) - Final, Complete 12/27/18 Gram Stain Result 2 (MANPREET) - Final, Complete 12/27/18 Gram Stain Result 3 (MANPREET) - Final, Complete Medications Current Medications Ondansetron HCl (Zofran) 4 mg PRN Q6HRS PRN IV NAUSEA/VOMITING Last administered on 01/05/19 16:25; Start 12/27/18 at 16:30 Calcium Carbonate/ Glycine (Tums) 500 mg PRN Q3HRS PRN PO UPSET STOMACH; Start 12/27/18 at 16:30 Zolpidem Tartrate (Ambien) 5 mg PRN QHS PRN PO INSOMNIA, MAY REPEAT IN 1HR; Start 12/27/18 at 16:30 Oxycodone HCl (Roxicodone) 5 mg PRN Q3HRS PRN PO BREAKTHROUGH PAIN Last administered on 01/08/19 04:26; Start 12/27/18 at 16:30 Morphine Sulfate (Morphine Sulfate) 1 mg PRN Q1HR PRN IV PAIN; Start 12/27/18 at 16:30; Stop 12/27/18 at 16:39; Status DC Acetaminophen (Tylenol) 650 mg PRN Q6HRS PRN PO Headaches, Temp > 101.5F; Start 12/27/18 at 16:30 Docusate Sodium (Colace) 100 mg BID PO Last administered on 01/08/19 08:11; Start 12/27/18 at 21:00 Magnesium Hydroxide (Milk Of Magnesia) 2,400 mg PRN Q12HR PRN PO CONSTIPATION Last administered on 01/05/19 08:57; Start 12/27/18 at 16:30 Bisacodyl (Dulcolax Supp) 10 mg PRN DAILY PRN NE CONSTIPATION Last administered on 01/07/19 04:12; Start 12/27/18 at 16:30 Ondansetron HCl (Zofran) 4 mg PRN Q6HRS PRN IVP NAUSEA/VOMITING; Start 12/27/18 at 16:30; Stop 12/28/18 at 11:31; Status DC Clonidine HCl (Catapres) 0.1 mg PRN Q1HR PRN PO HYPERTENSION; Start 12/27/18 at 16:30 Aspirin (Children'S Aspirin) 81 mg DAILY PO Last administered on 01/08/19at 08:11; Start 12/28/18 at 09:00 Atorvastatin Calcium (Lipitor) 20 mg HS PO Last administered on 01/07/19at 22:14; Start 12/27/18 at 21:00 Carvedilol (Coreg) 6.25 mg BIDWMEALS PO Last administered on 12/29/18at 17:39; Start 12/27/18 at 17:00; Stop 12/30/18 at 09:02; Status DC Diclofenac Sodium (Voltaren) 100 charan PRN QID PRN TP PAIN; Start 12/27/18 at 16:30; Stop 01/06/19 at 12:11; Status DC Ferrous Sulfate (Feosol) 325 mg TIDWMEALS PO Last administered on 01/08/19at 08:12; Start 12/27/18 at 17:00 Acetaminophen/ Hydrocodone Bitart (Lortab 10/325) 1 tab PRN Q6HRS PRN PO MODERATE PAIN Last administered on 01/05/19at 02:02; Start 12/27/18 at 16:30 Levothyroxine Sodium (Synthroid) 150 mcg DAILYAC PO Last administered on 01/08/19at 08:10; Start 12/28/18 at 07:30 Losartan Potassium (Cozaar) 25 mg DAILY PO ; Start 12/28/18 at 09:00; Stop 12/31/18 at 09:09; Status DC Non-Formulary Medication (Albuterol Sulfate (Ventolin Hfa Inhaler)) 2 puff QID INH ; Start 12/27/18 at 17:00; Status UNV Non-Formulary Medication (Fluticasone/ Vilanterol (Breo Ellipta 100-25 Mcg Inh)) 1 puff DAILY PRN IH daily; Start 12/27/18 at 16:30; Status UNV Insulin Human Lispro (HumaLOG) 10 units TIDWMEALS SQ Last administered on 12/30/18at 20:05; Start 12/27/18 at 17:30; Stop 12/31/18 at 07:32; Status DC Pantoprazole Sodium (Protonix) 40 mg DAILYAC PO Last administered on 01/08/19 08:10; Start 12/28/18 at 07:30 Albuterol Sulfate (Ventolin Neb Soln) 2.5 mg RTQID NEB Last administered on 01/08/19 07:24; Start 12/27/18 at 20:00 Budesonide (Pulmicort) 0.5 mg RTBID NEB Last administered on 01/08/19 07:24; Start 12/27/18 at 20:00 Morphine Sulfate (Morphine Sulfate) 2 mg PRN Q2HR PRN IV MODERATE PAIN Last administered on 01/04/19 13:26; Start 12/27/18 at 16:45 Cefepime HCl (Maxipime) 1 gm Q24H IVP Last administered on 01/07/19 22:14; Start 12/27/18 at 18:00 Vancomycin HCl (Vanco Per Pharmacy) 1 each PRN DAILY PRN MC SEE COMMENTS Last administered on 01/07/19at 09:44; Start 12/27/18 at 17:15 Vancomycin HCl 1.5 gm/Sodium Chloride 500 ml @ 250 mls/hr 1X ONCE IV Last administered on 12/27/18 18:02; Start 12/27/18 at 17:30; Stop 12/27/18 at 19:29; Status DC Vancomycin HCl (Vancomycin Random Level) 1 each 1X ONCE MC Last administered on 12/28/18at 06:00; Start 12/28/18 at 06:00; Stop 12/28/18 at 06:01; Status DC Sodium Polystyrene Sulfonate (Kayexalate) 15 gm 1X ONCE PO Last administered on 12/28/18at 05:57; Start 12/28/18 at 05:45; Stop 12/28/18 at 05:46; Status DC Sodium Chloride 1,000 ml @ 1,000 mls/hr Q1H PRN IV hypotension; Start 12/28/18 at 08:10; Stop 12/28/18 at 14:09; Status DC Albumin Human 200 ml @ 200 mls/hr 1X PRN PRN IV Hypotension; Start 12/28/18 at 08:15; Stop 12/28/18 at 14:14; Status DC Acetaminophen (Tylenol) 500 mg 1X PRN PRN PO MILD PAIN / TEMP; Start 12/28/18 at 08:15; Stop 12/29/18 at 08:14; Status DC Diphenhydramine HCl (Benadryl) 25 mg 1X PRN PRN IV ITCHING; Start 12/28/18 at 08:15; Stop 12/29/18 at 08:14; Status DC Diphenhydramine HCl (Benadryl) 25 mg 1X PRN PRN IV ITCHING; Start 12/28/18 at 08:15; Stop 12/29/18 at 08:14; Status DC Sodium Chloride 1,000 ml @ 400 mls/hr Q2H30M PRN IV PATENCY; Start 12/28/18 at 08:10; Stop 12/28/18 at 20:09; Status DC Info (PHARMACY MONITORING -- do not chart) 1 each PRN DAILY PRN MC SEE COMMENTS; Start 12/28/18 at 08:15; Stop 12/30/18 at 13:48; Status DC Vancomycin HCl 500 mg/Sodium Chloride 100 ml @ 100 mls/hr QMWF IV Last administered on 01/06/19at 16:23; Start 12/30/18 at 16:00 Lactobacillus Rhamnosus (Culturelle) 1 cap BID PO Last administered on 01/08/19at 08:11; Start 12/28/18 at 21:00 Iodixanol (Visipaque 320) 100 ml STK-MED ONCE .ROUTE ; Start 12/29/18 at 09:27; Stop 12/29/18 at 09:27; Status DC Lidocaine HCl (Buffered Lidocaine 1%) 3 ml STK-MED ONCE .ROUTE ; Start 12/29/18 at 09:27; Stop 12/29/18 at 09:27; Status DC Heparin Sodium/ Sodium Chloride 500 ml @ As Directed STK-MED ONCE .ROUTE ; Start 12/29/18 at 09:27; Stop 12/29/18 at 09:27; Status DC Midazolam HCl (Versed) 2 mg STK-MED ONCE .ROUTE ; Start 12/29/18 at 09:29; Stop 12/29/18 at 09:29; Status DC Fentanyl Citrate (Fentanyl 2ml Vial) 100 mcg STK-MED ONCE .ROUTE ; Start 12/29/18 at 09:29; Stop 12/29/18 at 09:29; Status DC Heparin Sodium (Porcine) (Heparin Sodium) 10,000 unit STK-MED ONCE .ROUTE ; Start 12/29/18 at 09:29; Stop 12/29/18 at 09:30; Status DC Heparin Sodium/ Sodium Chloride (HEPARIN for ARTERIAL LINE FLUSH) 1,000 unit 1X ONCE IART Last administered on 12/29/18at 10:00; Start 12/29/18 at 10:00; Stop 12/29/18 at 10:01; Status DC Lidocaine HCl (Buffered Lidocaine 1%) 3 ml 1X ONCE IJ Last administered on 12/29/18at 10:00; Start 12/29/18 at 10:00; Stop 12/29/18 at 10:01; Status DC Midazolam HCl (Versed) 2 mg 1X ONCE IV Last administered on 12/29/18at 10:00; Start 12/29/18 at 10:00; Stop 12/29/18 at 10:01; Status DC Fentanyl Citrate (Fentanyl 2ml Vial) 100 mcg 1X ONCE IV Last administered on 12/29/18at 10:00; Start 12/29/18 at 10:00; Stop 12/29/18 at 10:01; Status DC Iodixanol (Visipaque 320) 100 ml 1X ONCE IART Last administered on 12/29/18at 10:00; Start 12/29/18 at 10:00; Stop 12/29/18 at 10:01; Status DC Heparin Sodium (Porcine) (Heparin Sodium) 3,000 unit 1X ONCE IV Last administered on 12/29/18at 10:30; Start 12/29/18 at 10:30; Stop 12/29/18 at 10:32; Status DC Iodixanol (Visipaque 320) 50 ml STK-MED ONCE .ROUTE ; Start 12/29/18 at 10:43; Stop 12/29/18 at 10:43; Status DC Iodixanol (Visipaque 320) 50 ml 1X ONCE IART Last administered on 12/29/18at 10:45; Start 12/29/18 at 10:45; Stop 12/29/18 at 10:46; Status DC Info (CONTRAST GIVEN -- Rx MONITORING) 1 each PRN DAILY PRN MC SEE COMMENTS; Start 12/29/18 at 11:00; Stop 12/31/18 at 10:59; Status DC Carvedilol (Coreg) 3.125 mg BIDWMEALS PO Last administered on 01/08/19at 08:11; Start 12/30/18 at 09:00 Insulin Glargine (Lantus Syringe) 20 unit QHS SQ Last administered on 12/30/18at 21:00; Start 12/30/18 at 21:00; Stop 12/31/18 at 07:32; Status DC Insulin Glargine (Lantus Syringe) 10 unit ONCE ONCE SQ Last administered on 12/30/18at 09:48; Start 12/30/18 at 10:00; Stop 12/30/18 at 10:01; Status DC Sodium Chloride 1,000 ml @ 1,000 mls/hr Q1H PRN IV hypotension; Start 12/30/18 at 12:21; Stop 12/30/18 at 18:20; Status DC Diphenhydramine HCl (Benadryl) 25 mg 1X PRN PRN IV ITCHING; Start 12/30/18 at 12:30; Stop 12/31/18 at 12:29; Status DC Diphenhydramine HCl (Benadryl) 25 mg 1X PRN PRN IV ITCHING; Start 12/30/18 at 12:30; Stop 12/31/18 at 12:29; Status DC Sodium Chloride 1,000 ml @ 400 mls/hr Q2H30M PRN IV PATENCY; Start 12/30/18 at 12:21; Stop 12/31/18 at 00:20; Status DC Info (PHARMACY MONITORING -- do not chart) 1 each PRN DAILY PRN MC SEE COMMENTS; Start 12/30/18 at 12:30; Stop 01/04/19 at 14:19; Status DC Insulin Human Lispro (HumaLOG) 15 units 1X ONCE SQ Last administered on 12/30/18at 22:59; Start 12/30/18 at 23:00; Stop 12/30/18 at 23:01; Status DC Insulin Glargine (Lantus Syringe) 30 unit QHS SQ Last administered on 01/07/19at 23:52; Start 12/31/18 at 21:00 Insulin Human Lispro (HumaLOG) 15 units TIDWMEALS SQ Last administered on 01/01/19at 08:22; Start 12/31/18 at 08:00; Stop 01/01/19 at 08:35; Status DC Insulin Human Lispro (HumaLOG) 8 units TIDWMEALS SQ Last administered on 01/01/19at 16:52; Start 01/01/19 at 12:00; Stop 01/02/19 at 07:40; Status DC Insulin Human Lispro (HumaLOG) 12 units 1X ONCE SQ Last administered on 01/01/19at 21:14; Start 01/01/19 at 21:00; Stop 01/01/19 at 21:01; Status DC Losartan Potassium (Cozaar) 25 mg DAILY PO Last administered on 01/08/19at 08:11; Start 01/02/19 at 09:00 Insulin Human Lispro (HumaLOG) 10 units TIDWMEALS SQ Last administered on 01/08/19at 08:19; Start 01/02/19 at 07:45 Sodium Chloride 1,000 ml @ 1,000 mls/hr Q1H PRN IV hypotension; Start 01/02/19 at 08:18; Stop 01/02/19 at 14:17; Status DC Acetaminophen (Tylenol) 500 mg 1X PRN PRN PO MILD PAIN / TEMP; Start 01/02/19 at 08:30; Stop 01/03/19 at 08:29; Status DC Diphenhydramine HCl (Benadryl) 25 mg 1X PRN PRN IV ITCHING; Start 01/02/19 at 08:30; Stop 01/03/19 at 08:29; Status DC Diphenhydramine HCl (Benadryl) 25 mg 1X PRN PRN IV ITCHING; Start 01/02/19 at 08:30; Stop 01/03/19 at 08:29; Status DC Sodium Chloride 1,000 ml @ 400 mls/hr Q2H30M PRN IV PATENCY; Start 01/02/19 at 08:18; Stop 01/02/19 at 20:17; Status DC Info (PHARMACY MONITORING -- do not chart) 1 each PRN DAILY PRN MC SEE COMMENTS; Start 01/02/19 at 08:30; Status UNV Vancomycin HCl (Vancomycin Random Level) 1 each 1X ONCE MC Last administered on 01/04/19at 07:30; Start 01/04/19 at 06:00; Stop 01/04/19 at 06:01; Status DC Iodixanol (Visipaque 320) 100 ml STK-MED ONCE .ROUTE ; Start 01/02/19 at 13:20; Stop 01/02/19 at 13:20; Status DC Lidocaine HCl (Buffered Lidocaine 1%) 3 ml STK-MED ONCE .ROUTE ; Start 01/02/19 at 13:20; Stop 01/02/19 at 13:21; Status DC Heparin Sodium/ Sodium Chloride 1,000 ml @ As Directed STK-MED ONCE .ROUTE ; Start 01/02/19 at 13:21; Stop 01/02/19 at 13:21; Status DC Midazolam HCl (Versed) 2 mg STK-MED ONCE .ROUTE ; Start 01/02/19 at 13:52; Stop 01/02/19 at 13:53; Status DC Fentanyl Citrate (Fentanyl 2ml Vial) 100 mcg STK-MED ONCE .ROUTE ; Start at 13:52; Stop 01/02/19 at 13:53; Status DC Iodixanol (Visipaque 320) 100 ml STK-MED ONCE .ROUTE ; Start 01/02/19 at 14:22; Stop 01/02/19 at 14:22; Status DC Heparin Sodium/ Sodium Chloride (HEPARIN for ARTERIAL LINE FLUSH) 1,000 unit 1X ONCE IART Last administered on 01/02/19at 14:51; Start 01/02/19 at 14:45; Stop 01/02/19 at 15:04; Status DC Heparin Sodium/ Sodium Chloride (HEPARIN for ARTERIAL LINE FLUSH) 1,000 unit 1X ONCE IART Last administered on 01/02/19at 14:45; Start 01/02/19 at 14:45; Stop 01/02/19 at 15:04; Status DC Lidocaine HCl (Buffered Lidocaine 1%) 2 ml 1X ONCE IJ Last administered on 01/02/19at 14:52; Start 01/02/19 at 14:45; Stop 01/02/19 at 15:04; Status DC Midazolam HCl (Versed) 1 mg 1X ONCE IV Last administered on 01/02/19at 14:52; Start 01/02/19 at 14:45; Stop 01/02/19 at 15:04; Status DC Fentanyl Citrate (Fentanyl 2ml Vial) 25 mcg 1X ONCE IV Last administered on 01/02/19at 14:53; Start 01/02/19 at 14:45; Stop 01/02/19 at 15:04; Status DC Iodixanol (Visipaque 320) 100 ml 1X ONCE IART Last administered on 01/02/19at 14:52; Start 01/02/19 at 14:45; Stop 01/02/19 at 15:04; Status DC Ondansetron HCl (Zofran) 4 mg PRN Q6HRS PRN IV NAUSEA/VOMITING; Start 01/03/19 at 11:00; Stop 01/04/19 at 10:59; Status DC Morphine Sulfate (Morphine Sulfate) 1 mg PRN Q10MIN PRN IV SEVERE PAIN 7-10; Start 01/03/19 at 11:00; Stop 01/04/19 at 10:59; Status DC Ringer's Solution 1,000 ml @ 30 mls/hr Q24H IV ; Start 01/03/19 at 10:49; Stop 01/03/19 at 22:48; Status DC Lidocaine HCl (Xylocaine-Mpf 1% 2ml Vial) 2 ml PRN 1X PRN ID PRIOR TO IV START; Start 01/03/19 at 11:00; Stop 01/04/19 at 10:59; Status DC Hydromorphone HCl (Dilaudid) 0.5 mg PRN Q10MIN PRN IV SEV PAIN, Second choice Last administered on 01/03/19at 19:10; Start 01/03/19 at 11:00; Stop 01/04/19 at 10:59; Status DC Prochlorperazine Edisylate (Compazine) 5 mg PACU PRN PRN IV NAUSEA, MRX1 Last administered on 01/03/19at 18:30; Start 01/03/19 at 11:00; Stop 01/04/19 at 10:59; Status DC Insulin Human Lispro (HumaLOG VIAL for OP,RR ONLY) 0-10 units PRN Q1HR PRN SQ PER PROTOCOL Last administered on 01/03/19at 19:14; Start 01/03/19 at 15:15; Stop 01/04/19 at 15:14; Status DC Cefazolin Sodium 1 gm/Dextrose 50 ml @ 100 mls/hr 1X PREOP ONCE IV ; Start 01/03/19 at 15:45; Stop 01/03/19 at 16:14; Status UNV Cefazolin Sodium 50 ml @ 100 mls/hr 1X ONCE IV ; Start 01/03/19 at 16:00; Stop 01/03/19 at 16:29; Status DC Heparin Sodium (Porcine) 5000 unit/Sodium Chloride 505 ml @ 505 mls/hr 1X ONCE IRR ; Start 01/03/19 at 16:17; Stop 01/03/19 at 17:16; Status DC Lidocaine HCl 20 ml STK-MED ONCE .ROUTE ; Start 01/03/19 at 16:17; Stop 01/03/19 at 16:17; Status DC Cellulose (Surgicel Fibrillar 1x2) 1 each STK-MED ONCE .ROUTE ; Start 01/03/19 at 16:17; Stop 01/03/19 at 16:17; Status DC Cefazolin Sodium 1 gm/Sodium Chloride 500 ml @ 500 mls/hr 1X ONCE IRR Last administered on 01/03/19at 17:05; Start 01/03/19 at 16:18; Stop 01/03/19 at 17:17; Status DC Lidocaine HCl 20 ml STK-MED ONCE .ROUTE ; Start 01/03/19 at 16:17; Stop 01/03/19 at 16:18; Status Cancel Morphine Sulfate (Morphine Sulfate) 2 mg STK-MED ONCE .ROUTE ; Start 01/03/19 at 18:04; Stop 01/03/19 at 18:05; Status DC Ondansetron HCl (Zofran) 4 mg STK-MED ONCE .ROUTE ; Start 01/03/19 at 18:07; Stop 01/03/19 at 18:07; Status DC Propofol 20 ml @ As Directed STK-MED ONCE IV ; Start 01/03/19 at 18:07; Stop 01/03/19 at 18:07; Status DC Lidocaine HCl (Lidocaine Pf 2% Vial) 5 ml STK-MED ONCE .ROUTE ; Start 01/03/19 at 18:07; Stop 01/03/19 at 18:07; Status DC Phenylephrine HCl (PHENYLEPHRINE in 0.9% NACL PF) 1 mg STK-MED ONCE IV ; Start 01/03/19 at 18:07; Stop 01/03/19 at 18:07; Status DC Dexamethasone Sodium Phosphate (Decadron) 4 mg STK-MED ONCE .ROUTE ; Start 01/03/19 at 18:07; Stop 01/03/19 at 18:07; Status DC Ephedrine Sulfate (ePHEDrine PF IN SALINE SYRINGE) 50 mg STK-MED ONCE IV ; Start 01/03/19 at 18:07; Stop 01/03/19 at 18:07; Status DC Sevoflurane (Ultane) 60 ml STK-MED ONCE IH ; Start 01/03/19 at 18:07; Stop at 18:07; Status DC Hydromorphone HCl (Dilaudid) 2 mg STK-MED ONCE .ROUTE ; Start 01/03/19 at 18:11; Stop 01/03/19 at 18:11; Status DC Prochlorperazine Edisylate (Compazine) 10 mg STK-MED ONCE .ROUTE ; Start 01/03/19 at 18:18; Stop 01/03/19 at 18:18; Status DC Cefazolin Sodium (Ancef 1gm Ivpb For Omni) 1 gm STK-MED ONCE IV ; Start 01/03/19 at 16:00; Stop 01/04/19 at 08:42; Status DC Lidocaine/ Epinephrine (LIDOCAINE 1%-EPI 1:100,000 Multi-Dose) 20 ml STK-MED ONCE .ROUTE ; Start 01/04/19 at 10:53; Stop 01/04/19 at 10:53; Status DC Midazolam HCl (Versed) 2 mg 1X ONCE IV Last administered on 01/04/19at 12:27; Start 01/04/19 at 12:00; Stop 01/04/19 at 12:04; Status DC Fentanyl Citrate (Fentanyl 2ml Vial) 100 mcg 1X ONCE IV Last administered on 01/04/19at 12:27; Start 01/04/19 at 12:00; Stop 01/04/19 at 12:05; Status DC Lidocaine/ Epinephrine (LIDOCAINE 1%-EPI 1:100,000 Multi-Dose) 20 ml 1X ONCE SQ Last administered on 01/04/19at 12:28; Start 01/04/19 at 12:00; Stop 01/04/19 at 12:04; Status DC Cefazolin Sodium 50 ml @ 100 mls/hr 1X ONCE IV ; Start 01/04/19 at 12:00; Stop 01/04/19 at 12:29; Status Cancel Cefazolin Sodium 0 ml @ As Directed STK-MED ONCE IV ; Start 01/04/19 at 12:04; Stop 01/04/19 at 12:05; Status DC Midazolam HCl (Versed) 2 mg STK-MED ONCE .ROUTE ; Start 01/04/19 at 12:05; Stop 01/04/19 at 12:05; Status DC Fentanyl Citrate (Fentanyl 2ml Vial) 100 mcg STK-MED ONCE .ROUTE ; Start 01/04/19 at 12:05; Stop 01/04/19 at 12:05; Status DC Hydromorphone HCl (Dilaudid) 1 mg PRN Q3HRS PRN IV SEVERE PAIN Last administered on 01/04/19at 14:28; Start 01/04/19 at 14:00 Sodium Chloride 1,000 ml @ 1,000 mls/hr Q1H PRN IV hypotension; Start 01/04/19 at 14:14; Stop 01/04/19 at 20:13; Status DC Diphenhydramine HCl (Benadryl) 25 mg 1X PRN PRN IV ITCHING; Start 01/04/19 at 14:15; Stop 01/05/19 at 14:14; Status DC Diphenhydramine HCl (Benadryl) 25 mg 1X PRN PRN IV ITCHING; Start 01/04/19 at 14:15; Stop 01/05/19 at 14:14; Status DC Sodium Chloride 1,000 ml @ 400 mls/hr Q2H30M PRN IV PATENCY; Start 01/04/19 at 14:14; Stop 01/05/19 at 02:13; Status DC Info (PHARMACY MONITORING -- do not chart) 1 each PRN DAILY PRN MC SEE COMMENTS; Start 01/04/19 at 14:15; Stop 01/06/19 at 12:08; Status DC Sodium Chloride 500 ml @ 500 mls/hr 1X ONCE IV ; Start 01/06/19 at 07:45; Stop 01/06/19 at 08:44; Status DC Sodium Chloride 1,000 ml @ 1,000 mls/hr Q1H PRN IV hypotension; Start 01/06/19 at 08:10; Stop 01/06/19 at 14:09; Status DC Acetaminophen (Tylenol) 500 mg 1X PRN PRN PO MILD PAIN / TEMP; Start 01/06/19 at 08:15; Stop 01/07/19 at 08:14; Status DC Diphenhydramine HCl (Benadryl) 25 mg 1X PRN PRN IV ITCHING; Start 01/06/19 at 08:15; Stop 01/07/19 at 08:14; Status DC Diphenhydramine HCl (Benadryl) 25 mg 1X PRN PRN IV ITCHING; Start 01/06/19 at 08:15; Stop 01/07/19 at 08:14; Status DC Sodium Chloride 1,000 ml @ 400 mls/hr Q2H30M PRN IV PATENCY; Start 01/06/19 at 08:10; Stop 01/06/19 at 20:09; Status DC Info (PHARMACY MONITORING -- do not chart) 1 each PRN DAILY PRN MC SEE COMMENTS; Start 01/06/19 at 08:15 Diclofenac Sodium (Voltaren) 1 charan PRN QID PRN TP JOINT PAIN; Start 01/06/19 at 12:15 Darbepoetin Abisai (ARANESP for DIALYSIS PTS) 60 mcg WEEKLYHS SQ Last administered on 01/06/19at 21:13; Start 01/06/19 at 21:00 Active Scripts Active Reported Augmentin 875-125 Tablet (Amoxicillin/Potassium Clav) 1 Each Tablet 1 Tab PO BID Protonix (Pantoprazole Sodium) 20 Mg Tablet.dr 40 Mg PO DAILY Lipitor (Atorvastatin Calcium) 20 Mg Tablet 20 Mg PO HS Aspirin 81 Mg Tab.chew 1 Tab PO DAILY Losartan Potassium 50 Mg Tablet 25 Mg PO DAILY Tums (Calcium Carbonate) 200 Mg Tab.chew 2 Tab PO TIDAC Breo Ellipta 100-25 Mcg Inh (Fluticasone/Vilanterol) 1 Each Aer.pow.ba 1 Puff IH DAILY PRN Ventolin Hfa Inhaler (Albuterol Sulfate) 18 Gm Hfa.aer.ad 2 Puff INH QID Ferrous Sulfate 325 Mg Tablet 325 Mg PO TID Docusate Sodium 100 Mg Capsule 100 Mg PO BID Humulin R U-500 Kwikpen (Insulin Regular, Human) 500 Unit/1 Ml Insuln.pen 10 Unit SQ TIDAC U-500 Voltaren (Diclofenac Sodium) 100 Gm Gel..gram. 100 Gm TP PRN QID PRN [place] 10-325 Tablet (Acetaminophen/Hydrocodone Bitart) 1 Each Tablet 1 Tab PO PRN Q6HRS PRN Levothyroxine Sodium 150 Mcg Tablet 150 Mcg PO DAILYAC Carvedilol (Carvedilol) 6.25 Mg Tablet 6.25 Mg PO BIDWMEALS Vitals/I & O Vital Sign - Last 24 Hours 01/07/19 01/07/19 01/07/19 01/07/19 11:00 11:18 11:58 15:00 Temp 97.9 98.0 97.9 98.0 Pulse 92 90 Resp 20 20 B/P (MAP) 118/46 (70) 123/54 (77) Pulse Ox 94 94 96 O2 Delivery BiPAP/CPAP Nasal Cannula Nasal Cannula BiPAP/CPAP O2 Flow Rate 3.0 3.0 01/07/19 01/07/19 01/07/19 01/07/19 15:22 17:05 19:00 20:00 Temp 98.1 98.1 Pulse 90 82 Resp 20 B/P (MAP) 123/54 99/48 (65) Pulse Ox 99 O2 Delivery Nasal Cannula Nasal Cannula Nasal Cannula O2 Flow Rate 3.0 3.0 01/07/19 01/07/19 01/07/19 01/08/19 20:35 23:02 23:44 01:01 Temp 97.6 97.6 Pulse 80 Resp 20 B/P (MAP) 90/34 (52) Pulse Ox 100 99 96 94 O2 Delivery Nasal Cannula Nasal Cannula BiPAP/CPAP BiPAP/CPAP O2 Flow Rate 3.0 01/08/19 01/08/19 01/08/19 01/08/19 03:04 03:54 06:19 07:00 Temp 97.7 98.0 97.7 98.0 Pulse 79 84 Resp 20 21 B/P (MAP) 135/54 (81) 132/61 (84) Pulse Ox 96 100 92 O2 Delivery BiPAP/CPAP BiPAP/CPAP BiPAP/CPAP BiPAP/CPAP O2 Flow Rate 30.0 01/08/19 01/08/19 01/08/19 01/08/19 07:26 07:27 08:11 08:11 Pulse 84 84 B/P (MAP) 132/61 132/61 Pulse Ox 99 99 O2 Delivery Nasal Cannula Nasal Cannula O2 Flow Rate 2.0 2.0 Intake and Output 01/07/19 01/07/19 01/08/19 15:00 23:00 07:00 Intake Total 450 ml 250 ml Output Total 0 ml Balance 450 ml 250 ml 0 ml KIMBERLY LOPEZ MD Jan 08, 2019 09:03
[2019-01-08 11:10] VITALS: BP 115/47
--- NOTE | 2019-01-08 11:32 | PDOC ---
PULMONARY PROGRESS NOTES Subjective The patient is a 68-year-old that was initially admitted back on 12/27/2018. She has comorbidities, end-stage renal disease, coronary artery disease with previous coronary artery bypass grafting, type 2 diabetes, chronic obstructive pulmonary disease, obesity, and hypothyroidism. She was directly admitted from the wound care. She had a left thumb wound. Since then the patient has been seen by multiple services including Infectious Disease Service, has been on some antibiotics. On 01/03, she underwent surgical intervention for the ischemic changes to her right hand including gangrene of the left thumb. She has a history of sleep apnea but stopped using cpap. She has used bipap for past two nights and continues to feel better and more alert. She has minimal tobacco smoke history having smoked a couple of cigarettes per day for ~ 10 years. Vitals Vital Signs Date Time Temp Pulse Resp B/P (MAP) Pulse Ox O2 Delivery O2 Flow Rate FiO2 01/08/19 11:10 97.8 82 18 115/47 (69) 94 Nasal Cannula 2.0 97.8 ROS: No Nausea, No Chest Pain, No Abdominal Pain, No Increase Cough General: Oriented X4, No acute distress Lungs: Clear Cardiovascular: S1, S2 Abdomen: Soft Neuro Exam: Alert, Oriented, No Focal Findings Labs Laboratory Tests Test 01/06/19 12:19 01/06/19 12:43 01/06/19 16:21 01/06/19 20:33 Glucose (Fingerstick) 146 mg/dL (70-99) 159 mg/dL (70-99) 196 mg/dL (70-99) O2 Saturation 92 % (92-99) Arterial Blood pH 7.34 (7.35-7.45) Arterial Blood pCO2 at Patient Temp 66 mmHg (35-46) Arterial Blood pO2 at Patient Temp 67 mmHg (65-108) Arterial Blood HCO3 35 mmol/L (21-28) Arterial Blood Base Excess 8 mmol/L (-3-3) FiO2 35 Test 01/07/19 07:24 01/07/19 10:50 01/07/19 16:51 01/07/19 20:24 Glucose (Fingerstick) 140 mg/dL (70-99) 190 mg/dL (70-99) 182 mg/dL (70-99) 197 mg/dL (70-99) Test 01/07/19 22:41 01/08/19 07:18 Glucose (Fingerstick) 182 mg/dL (70-99) 188 mg/dL (70-99) Laboratory Tests Test 01/07/19 16:51 01/07/19 20:24 01/07/19 22:41 01/08/19 07:18 Glucose (Fingerstick) 182 mg/dL (70-99) 197 mg/dL (70-99) 182 mg/dL (70-99) 188 mg/dL (70-99) Medications Active Scripts Medications Dose Route/Sig Max Daily Dose Days Date Category Dose Instructions Augmentin 875-125 Tablet (Amoxicillin/Potassium Clav) 1 Each Tablet 1 Tab PO BID 04/12/18 Reported Protonix (Pantoprazole Sodium) 20 Mg Tablet.dr 40 Mg PO DAILY 04/12/18 Reported Lipitor (Atorvastatin Calcium) 20 Mg Tablet 20 Mg PO HS 04/12/18 Reported Aspirin 81 Mg Tab.chew 1 Tab PO DAILY 04/12/18 Reported Losartan Potassium 50 Mg Tablet 25 Mg PO DAILY 04/12/18 Reported Tums (Calcium Carbonate) 200 Mg Tab.chew 2 Tab PO TIDAC 01/10/18 Reported Breo Ellipta 100-25 Mcg Inh (Fluticasone/Vilanterol) 1 Each Aer.pow.ba 1 Puff IH DAILY PRN 01/10/18 Reported Ventolin Hfa Inhaler (Albuterol Sulfate) 18 Gm Hfa.aer.ad 2 Puff INH QID 01/10/18 Reported Ferrous Sulfate 325 Mg Tablet 325 Mg PO TID 01/10/18 Reported Docusate Sodium 100 Mg Capsule 100 Mg PO BID 01/10/18 Reported Humulin R U-500 Kwikpen (Insulin Regular, Human) 500 Unit/1 Ml Insuln.pen 10 Unit SQ TIDAC 01/10/18 Reported U-500 Voltaren (Diclofenac Sodium) 100 Gm Gel..gram. 100 Gm TP PRN QID PRN 01/10/18 Reported Crewe 10-325 Tablet (Acetaminophen/Hydrocodone Bitart) 1 Each Tablet 1 Tab PO PRN Q6HRS PRN 01/10/18 Reported Levothyroxine Sodium 150 Mcg Tablet 150 Mcg PO DAILYAC 01/10/18 Reported Carvedilol (Carvedilol) 6.25 Mg Tablet 6.25 Mg PO BIDWMEALS 01/10/18 Reported Impression . IMPRESSION: 1. Tvvoa-bb-[id number] hypercapnic hypoxemic respiratory failure, multifactorial. 2. sleep apnea and obesity-hypoventilation syndrome 3. Status post left arm radiocephalic fistula ligation. 4. Left thumb infection. 5. Leukocytosis. 6. Steal phenomenon. 7. End-stage renal disease. 8. Diabetes. 9. Prior history of methicillin-sensitive staphylococcus aureus and Klebsiella infection. Plan . PLAN: 1. Continue bipap with sleep 2. low flow oxygen. 3. Minimize respiratory depressants such as opiode anlagesics, diazepams HAZEL RAMSAY MD Jan 08, 2019 11:32
--- NOTE | 2019-01-08 11:45 | PDOC ---
Renal-Progress Notes Subjective Notes Notes NO COMPLAINTS VOICED History of Present Illness Hx of present illness STABLE Vitals Vitals Vital Signs Date Time Temp Pulse Resp B/P (MAP) Pulse Ox O2 Delivery O2 Flow Rate FiO2 01/08/19 11:10 97.8 82 18 115/47 (69) 94 Nasal Cannula 2.0 97.8 Weight Weight [ ] I.O. Intake and Output Intake and Output 01/08/19 07:00 Intake Total 700 ml Output Total 0 ml Balance 700 ml Intake Oral 700 ml Output Urine Total 0 ml Labs Labs Laboratory Tests Test 01/07/19 16:51 01/07/19 20:24 01/07/19 22:41 01/08/19 07:18 Glucose (Fingerstick) 182 mg/dL (70-99) 197 mg/dL (70-99) 182 mg/dL (70-99) 188 mg/dL (70-99) Micro Micro Microbiology 12/27/18 Aerobic Culture - Final, Complete 12/27/18 Aerobic Culture Result 1 (MANPREET) - Final, Complete 12/27/18 Aerobic Culture Result 2 (MANPREET) - Final, Complete 12/27/18 Antimicrobic Susceptibility - Final, Complete 12/27/18 Gram Stain - Final, Complete 12/27/18 Gram Stain Result 1 (MANPREET) - Final, Complete 12/27/18 Gram Stain Result 2 (MANPREET) - Final, Complete 12/27/18 Gram Stain Result 3 (MANPREET) - Final, Complete Review of Systems Constitutional: yes: weakness, alert Eyes: Yes: no symptom reported Pulmonary: Yes no symptom reported Cardiovascular: Yes no symptom reported Gastrointestional: Yes: no symptom reported Musculoskeletal: Yes: hand pain Skin: Yes no symptom reported Psychiatric/Neurological: Yes: no symptom reported Endocrine: Yes: no symptom reported Physical Exam General Appearance: no apparent distress Skin: warm Respiratory: decreased breath sounds Heart: S1S2 Abdomen: soft Neurology: oriented Assessment Assessment IMP ESRD S/P LEFT FA RC AVF LIGATION FOR STEAL SYNDROME S/P 1ST LEFT FINGER AMP AND DEBRIDEMENT OF THUMB AND 3RD FINGER LEUKOCYTOSIS DM II HTN PLAN HD [facility] NEEDED UPDATED FAMILY WILL FOLLOW GEOVANNI RUIZ MD Jan 08, 2019 11:45
[2019-01-08] MEDS: HYDROcodone/APAP 10/325 1 TAB TABLET PO PRN (11:49)
--- NOTE | 2019-01-08 12:31 | PDOC ---
CARDIOLOGY PROGRESS NOTE SUBJECTIVE: No acute events overnight Patient's daughter was at bedside and she states that the patient is not compliant with her CPAP at home which is partially leading to some of her heart failure and dyspnea issues. Currently the patient denies any chest pain. She is resting in her chair. OBJECTIVE: Vital Signs/I&O: Vital Signs Date Time Temp Pulse Resp B/P (MAP) Pulse Ox O2 Delivery O2 Flow Rate FiO2 01/08/19 11:49 Nasal Cannula 2.0 01/08/19 11:10 97.8 82 18 115/47 (69) 94 97.8 I & O 01/07/19 01/07/19 01/08/19 15:00 23:00 07:00 Intake Total 450 ml 250 ml Output Total 0 ml Balance 450 ml 250 ml 0 ml Objective: On examination she continues to appear frail and debilitated 1+ lower 70 edema persists Heart tones are reg Lungs are clear. CURRENT MEDICATIONS: Meds reviewed DIAGNOSTIC TESTING: Labs: Laboratory Tests Test 01/07/19 16:51 01/07/19 20:24 01/07/19 22:41 01/08/19 07:18 Glucose (Fingerstick) 182 mg/dL (70-99) H 197 mg/dL (70-99) H 182 mg/dL (70-99) H 188 mg/dL (70-99) H Test 01/08/19 11:41 Glucose (Fingerstick) 182 mg/dL (70-99) H ASSESSMENT: 1. 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 Coronary artery disease status post bypass remotely 3. Dyspnea likely multifactorial related to obesity, diastolic and systolic heart failure and possibly COPD and obstructive sleep apnea PLAN: 1. We will await an echocardiogram to rule out any critical obvious issues. 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 Nothing further from a cardiac standpoint at this time. MEGAN HURTADO MD Jan 08, 2019 12:31
[2019-01-08] MEDS: VANCOMYCIN PER PHARMACY MC PRN (14:55)
[2019-01-08 15:28] VITALS: BP 100/42
[2019-01-08 19:00] VITALS: BP 107/52
[2019-01-08] MEDS: CEFEPIME HCL IV Push 1 GM VIAL. IVP SCH (21:00)
[2019-01-08] MEDS: ATORVASTATIN CALCIUM 20 MG TABLET PO SCH (21:00)
[2019-01-08] MEDS: INSULIN GLARGINE SYRINGE. SQ SCH (21:08)
[2019-01-08 23:03] VITALS: BP 93/35
[2019-01-09 03:15] VITALS: BP 109/45
[2019-01-09 05:07] LABS: CALCIUM 9.1 mg/dL (8.5-10.1); POTASSIUM 4.4 mmol/L (3.5-5.1)
[2019-01-09] MEDS: oxyCODONE IR 5 MG TABLET PO PRN ×3 (06:31→18:50)
[2019-01-09] MEDS: PANTOPRAZOLE 40 MG TABLET.DR. PO SCH (06:31)
[2019-01-09] MEDS: LEVOTHYROXINE 150 MCG TABLET PO SCH (06:31)
[2019-01-09 07:00] VITALS: BP 117/49
[2019-01-09] MEDS: ALBUTEROL SULFATE 2.5 MG/3 ML NEBU. NEB SCH ×4 (07:10→20:09)
[2019-01-09] MEDS: BUDESONIDE 0.5 MG/2 ML NEBU. NEB SCH ×2 (07:10→20:09)
[2019-01-09] MEDS ORDERED: IV NORMAL SALINE 1000ML BAG 1,000 ML IV PRN ×2 (08:05)
[2019-01-09 08:08] LABS: BASO # 0.1 x10^3/uL (0.0-0.2); BASO % 1 % (0-3); EOS # 0.3 x10^3/uL (0.0-0.7); EOS % 3 % (0-3); HEMOGLOBIN 9.1 g/dL (12.0-15.5); LYMPH # 1.3 x10^3/uL (1.0-4.8); LYMPH % 11 % (24-48); MEAN CORPUSCULAR HEMOGLOBIN 32 pg (25-35); MEAN CORPUSCULAR HGB CONC 30 g/dL (31-37); MEAN CORPUSCULAR VOLUME 105 fL (79-100); MONO # 0.9 x10^3/uL (0.0-1.1); MONO % 9 % (0-9); NEUT # 8.5 x10^3/uL (1.8-7.7); NEUT % 76 % (31-73); PLATELET COUNT 261 x10^3/uL (140-400); RED BLOOD COUNT 2.87 x10^6/uL (3.50-5.40); RED CELL DISTRIBUTION WIDTH 15.1 % (11.5-14.5); WHITE BLOOD COUNT 11.1 x10^3/uL (4.0-11.0)
[2019-01-09] MEDS ORDERED: ALBUMIN HUMAN 25% 200 ML IV PRN (08:15)
[2019-01-09] MEDS ORDERED: 0.9 % SODIUM CHLORIDE 10 ML DISP.SYRIN. IV PRN ×2 (08:15)
[2019-01-09] MEDS ORDERED: DIALYSIS PATIENT. MC PRN ×2 (08:15)
--- NOTE | 2019-01-09 08:40 | PDOC ---
PULMONARY PROGRESS NOTES Subjective PT NOT MORE SOA WEARING BIPAP AT HS NOT MORE SOA Vitals Vital Signs Date Time Temp Pulse Resp B/P (MAP) Pulse Ox O2 Delivery O2 Flow Rate FiO2 01/09/19 07:12 90 Nasal Cannula 2.0 01/09/19 07:00 97.9 82 17 117/49 (71) 97.9 ROS: No Nausea, No Chest Pain, No Abdominal Pain, No Increase Cough General: No acute distress Lungs: Clear Cardiovascular: S1, S2 Abdomen: Soft Neuro Exam: Alert, Oriented, No Focal Findings Extremities: Other (WOUNDS) Skin: Warm Labs Laboratory Tests Test 01/07/19 10:50 01/07/19 16:51 01/07/19 20:24 01/07/19 22:41 Glucose (Fingerstick) 190 mg/dL (70-99) 182 mg/dL (70-99) 197 mg/dL (70-99) 182 mg/dL (70-99) Test 01/08/19 07:18 01/08/19 11:41 01/08/19 16:37 01/08/19 20:30 Glucose (Fingerstick) 188 mg/dL (70-99) 182 mg/dL (70-99) 172 mg/dL (70-99) 162 mg/dL (70-99) Test 01/09/19 04:05 01/09/19 04:15 01/09/19 07:25 White Blood Count 11.1 x10^3/uL (4.0-11.0) Red Blood Count 2.87 x10^6/uL (3.50-5.40) Hemoglobin 9.1 g/dL (12.0-15.5) Hematocrit 30.0 % (36.0-47.0) Mean Corpuscular Volume 105 fL (79-100) Mean Corpuscular Hemoglobin 32 pg (25-35) Mean Corpuscular Hemoglobin Concent 30 g/dL (31-37) Red Cell Distribution Width 15.1 % (11.5-14.5) Platelet Count 261 x10^3/uL (140-400) Neutrophils (%) (Auto) 76 % (31-73) Lymphocytes (%) (Auto) 11 % (24-48) Monocytes (%) (Auto) 9 % (0-9) Eosinophils (%) (Auto) 3 % (0-3) Basophils (%) (Auto) 1 % (0-3) Neutrophils # (Auto) 8.5 x10^3/uL (1.8-7.7) Lymphocytes # (Auto) 1.3 x10^3/uL (1.0-4.8) Monocytes # (Auto) 0.9 x10^3/uL (0.0-1.1) Eosinophils # (Auto) 0.3 x10^3/uL (0.0-0.7) Basophils # (Auto) 0.1 x10^3/uL (0.0-0.2) Sodium Level 139 mmol/L (136-145) Potassium Level 4.4 mmol/L (3.5-5.1) Chloride Level 100 mmol/L (98-107) Carbon Dioxide Level 31 mmol/L (21-32) Anion Gap 8 (6-14) Blood Urea Nitrogen 35 mg/dL (7-20) Creatinine 7.0 mg/dL (0.6-1.0) Estimated GFR (Cockcroft-Gault) 7.0 Glucose Level 195 mg/dL (70-99) Calcium Level 9.1 mg/dL (8.5-10.1) Glucose (Fingerstick) 186 mg/dL (70-99) Laboratory Tests Test 01/08/19 11:41 01/08/19 16:37 01/08/19 20:30 01/09/19 04:05 Glucose (Fingerstick) 182 mg/dL (70-99) 172 mg/dL (70-99) 162 mg/dL (70-99) White Blood Count 11.1 x10^3/uL (4.0-11.0) Red Blood Count 2.87 x10^6/uL (3.50-5.40) Hemoglobin 9.1 g/dL (12.0-15.5) Hematocrit 30.0 % (36.0-47.0) Mean Corpuscular Volume 105 fL (79-100) Mean Corpuscular Hemoglobin 32 pg (25-35) Mean Corpuscular Hemoglobin Concent 30 g/dL (31-37) Red Cell Distribution Width 15.1 % (11.5-14.5) Platelet Count 261 x10^3/uL (140-400) Neutrophils (%) (Auto) 76 % (31-73) Lymphocytes (%) (Auto) 11 % (24-48) Monocytes (%) (Auto) 9 % (0-9) Eosinophils (%) (Auto) 3 % (0-3) Basophils (%) (Auto) 1 % (0-3) Neutrophils # (Auto) 8.5 x10^3/uL (1.8-7.7) Lymphocytes # (Auto) 1.3 x10^3/uL (1.0-4.8) Monocytes # (Auto) 0.9 x10^3/uL (0.0-1.1) Eosinophils # (Auto) 0.3 x10^3/uL (0.0-0.7) Basophils # (Auto) 0.1 x10^3/uL (0.0-0.2) Test 01/09/19 04:15 01/09/19 07:25 Sodium Level 139 mmol/L (136-145) Potassium Level 4.4 mmol/L (3.5-5.1) Chloride Level 100 mmol/L (98-107) Carbon Dioxide Level 31 mmol/L (21-32) Anion Gap 8 (6-14) Blood Urea Nitrogen 35 mg/dL (7-20) Creatinine 7.0 mg/dL (0.6-1.0) Estimated GFR (Cockcroft-Gault) 7.0 Glucose Level 195 mg/dL (70-99) Calcium Level 9.1 mg/dL (8.5-10.1) Glucose (Fingerstick) 186 mg/dL (70-99) Medications Active Scripts Medications Dose Route/Sig Max Daily Dose Days Date Category Dose Instructions Augmentin 875-125 Tablet (Amoxicillin/Potassium Clav) 1 Each Tablet 1 Tab PO BID 04/12/18 Reported Protonix (Pantoprazole Sodium) 20 Mg Tablet.dr 40 Mg PO DAILY 04/12/18 Reported Lipitor (Atorvastatin Calcium) 20 Mg Tablet 20 Mg PO HS 04/12/18 Reported Aspirin 81 Mg Tab.chew 1 Tab PO DAILY 04/12/18 Reported Losartan Potassium 50 Mg Tablet 25 Mg PO DAILY 04/12/18 Reported Tums (Calcium Carbonate) 200 Mg Tab.chew 2 Tab PO TIDAC 01/10/18 Reported Breo Ellipta 100-25 Mcg Inh (Fluticasone/Vilanterol) 1 Each Aer.pow.ba 1 Puff IH DAILY PRN 01/10/18 Reported Ventolin Hfa Inhaler (Albuterol Sulfate) 18 Gm Hfa.aer.ad 2 Puff INH QID 01/10/18 Reported Ferrous Sulfate 325 Mg Tablet 325 Mg PO TID 01/10/18 Reported Docusate Sodium 100 Mg Capsule 100 Mg PO BID 01/10/18 Reported Humulin R U-500 Kwikpen (Insulin Regular, Human) 500 Unit/1 Ml Insuln.pen 10 Unit SQ TIDAC 01/10/18 Reported U-500 Voltaren (Diclofenac Sodium) 100 Gm Gel..gram. 100 Gm TP PRN QID PRN 01/10/18 Reported Adolphus 10-325 Tablet (Acetaminophen/Hydrocodone Bitart) 1 Each Tablet 1 Tab PO PRN Q6HRS PRN 01/10/18 Reported Levothyroxine Sodium 150 Mcg Tablet 150 Mcg PO DAILYAC 01/10/18 Reported Carvedilol (Carvedilol) 6.25 Mg Tablet 6.25 Mg PO BIDWMEALS 01/10/18 Reported Impression . IMPRESSION: 1. [id number] hypercapnic hypoxemic respiratory failure, multifactorial. 2. sleep apnea and obesity-hypoventilation syndrome 3. Status post left arm radiocephalic fistula ligation. 4. Left thumb infection. 5. Leukocytosis. 6. Steal phenomenon. 7. End-stage renal disease. 8. Diabetes. 9. Prior history of methicillin-sensitive staphylococcus aureus and Klebsiella infection. Plan . CHECKING TO SEE IF PT QUAILIFIES FOR HOME BIPAP NON INVASIVE VENTIALTION SEE BELOW 1. Continue bipap with sleep 2. low flow oxygen. 3. Minimize respiratory depressants such as opiode anlagesics, diazepams VICKY SMITH MD Jan 09, 2019 08:40
--- NOTE | 2019-01-09 08:50 | CARD ---
MR#: [id number] Date of Study: 01/08/2019 Ordering Physician: MEGAN HURTADO, Referring Physician: MEGAN HURTADO, Tech: Melanie Warren DANIA APPROVED REPORT EXAM: Two-dimensional and M-mode echocardiogram with Doppler and color Doppler. Other Information Quality : PoorHR: 79bpm Rhythm : NSR INDICATION Congestive Heart Failure 2D DIMENSIONS Left Atrium(2D)4.3 (1.6-4.0cm)IVSd0.8 (0.7-1.1cm) LVDd4.3 (3.9-5.9cm)LVOT Diameter2.0 (1.8-2.4cm) PWd0.8 (0.7-1.1cm)LVDs3.1 (2.5-4.0cm) FS (%) 27.8 %SV46.2 ml LVEF(%)54.2 (>50%) Aortic Valve AoV Peak Nelson.111.9cm/sAoV VTI22.6cm AO Peak GR.5.0mmHgLVOT Peak Nelson.90.1cm/s AO Mean GR.3mmHgAVA (VMAX)2.62cm2 Mitral Valve MV E Qzgktphq32.2cm/sMV DECEL [id number] MV A Hhztpjvx46.5cm/sE/A Ratio1.0 MV A [id number] Tricuspid Valve TR P. [id number]/sTR Peak Gr.40mmHg LEFT VENTRICLE The left ventricle is normal size. There is normal left ventricular wall thickness. The systolic func tion is severely impaired. EF 30% There is global hypokinesis of the left ventricle. Tissue Doppler i maging reveals severe left ventricular diastolic dysfunction. RIGHT VENTRICLE The right ventricle is normal size. There is normal right ventricular wall thickness. The right ventr icular systolic function is normal. There is an ICD/pacer lead in the RA/RV ATRIA The left atrium is mildly dilated. The right atrium size is normal. The interatrial septum is intact with no evidence for an atrial septal defect or patent foramen ovale as noted on 2-D or Doppler imagi ng. AORTIC VALVE Not well visualized. There is no significant aortic valvular stenosis. Cannot exclude aortic valvular vegetation. MITRAL VALVE Not well visualized. There is no mitral valve stenosis. Doppler and Color-flow revealed trace mitral regurgitation. TRICUSPID VALVE The tricuspid valve is normal in structure and function. Doppler and Color Flow revealed mild tricusp id regurgitation. RVSP 41 mm Hg There is no tricuspid valve prolapse or vegetation. There is no tricu spid valve stenosis. PULMONIC VALVE Doppler and Color Flow revealed no pulmonic valvular regurgitation. There is no pulmonic valvular deisy nosis. GREAT VESSELS The aortic root is normal in size. The IVC was not visualized. PERICARDIAL EFFUSION There is small pleural effusion. There is no evidence of significant pericardial effusion. Critical Notification Critical Value: No <Conclusion> The systolic function is severely impaired. EF 30% There is global hypokinesis of the left ventricle. Technically limited study Signed by : Megan Hurtado, Electronically Approved : 01/09/2019 08:49:55
[2019-01-09 09:04] LABS: % EOS 1 % (0-5); % LYMPHS 11 % (24-48); % MONOS 6 % (0-10); % SEGS 82 % (35-66); PLT ESTIMATE ADEQUATE (ADEQUATE)
[2019-01-09 09:05] LABS: ANISOCYTOSIS SLIGHT; POLYCHROMASIA SLIGHT
--- NOTE | 2019-01-09 09:05 | PDOC ---
PROGRESS NOTES Chief Complaint Chief Complaint 1. CHF exacerbation , hypoxic RF - bipAP 11.2018, 2. Cellulitis left thumb, unroofed at Wound clinic, r.o osteomyelitis 3. 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 ESRD on HD, OLIGURIA 5. AOCD 6. MAXIMILIAN< Obesity, hypothyroidism, HTN, CAD hx, lipids- chronic stable 7. LABILE BP 8. Indwelling ICD 9 LABILE DM on cefepime and vanco renal dosing for dialysis local wound care 36 min pt exam, chart review, > 50% of time with exam, chart review, pt care coordination History of Present Illness History of Present Illness WIDE AWAKE x 2 days Dtr giving her a TSB She looks good BC neg but left thumb cx as below, with ID, wound care, wound vac on board E feacalis left thumb plus normal emre Wearing BIPAP at night, Sw to help if we can get this for home? [facility] has ordered echo - yet to do - went into [facility] Pt follows with outside cards, she is on the right [facility] meds already SHe makes very minimal UO She now has tunnneled RT HD cath SHe does get fluid off during HD per dtr relay REFUSES SN[facility] ADAMANTLY - [facility] slated SHe has stable bilateral pitting edema PLAN: CPM GEt fluid off during HD LAbs, follow cxs Follow ID IV abx and vasc surg plus wound care recs - might shift to PO today and i can dc? 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 OC/Op - clear NECK: Supple LUNGS: Clear bilaterally. HEART: S1, S2. ABDOMEN: Soft, obese. Decreased Bowel sounds, nontender but some distension. EXTREMITIES: Edema present, chronic. DERMATOLOGIC: Left hand with vac and dressing in place NEUROLOGIC: Alert, answers questions R chest HD cath - clean General: Alert, Oriented X3, Cooperative, No acute distress, Other Heart: Regular rate, Normal S1, Normal S2, No murmurs Lungs: Clear Abdomen: Normal bowel sounds, Soft, No tenderness Extremities: Other Skin: Other Labs LABS Laboratory Tests Test 01/08/19 11:41 01/08/19 16:37 01/08/19 20:30 01/09/19 04:05 Glucose (Fingerstick) 182 mg/dL (70-99) 172 mg/dL (70-99) 162 mg/dL (70-99) White Blood Count 11.1 x10^3/uL (4.0-11.0) Red Blood Count 2.87 x10^6/uL (3.50-5.40) Hemoglobin 9.1 g/dL (12.0-15.5) Hematocrit 30.0 % (36.0-47.0) Mean Corpuscular Volume 105 fL (79-100) Mean Corpuscular Hemoglobin 32 pg (25-35) Mean Corpuscular Hemoglobin Concent 30 g/dL (31-37) Red Cell Distribution Width 15.1 % (11.5-14.5) Platelet Count 261 x10^3/uL (140-400) Neutrophils (%) (Auto) 76 % (31-73) Lymphocytes (%) (Auto) 11 % (24-48) Monocytes (%) (Auto) 9 % (0-9) Eosinophils (%) (Auto) 3 % (0-3) Basophils (%) (Auto) 1 % (0-3) Neutrophils # (Auto) 8.5 x10^3/uL (1.8-7.7) Lymphocytes # (Auto) 1.3 x10^3/uL (1.0-4.8) Monocytes # (Auto) 0.9 x10^3/uL (0.0-1.1) Eosinophils # (Auto) 0.3 x10^3/uL (0.0-0.7) Basophils # (Auto) 0.1 x10^3/uL (0.0-0.2) Test 01/09/19 04:15 01/09/19 07:25 Sodium Level 139 mmol/L (136-145) Potassium Level 4.4 mmol/L (3.5-5.1) Chloride Level 100 mmol/L (98-107) Carbon Dioxide Level 31 mmol/L (21-32) Anion Gap 8 (6-14) Blood Urea Nitrogen 35 mg/dL (7-20) Creatinine 7.0 mg/dL (0.6-1.0) Estimated GFR (Cockcroft-Gault) 7.0 Glucose Level 195 mg/dL (70-99) Calcium Level 9.1 mg/dL (8.5-10.1) Glucose (Fingerstick) 186 mg/dL (70-99) Review of Systems Review of Systems neg 14 pt reviewed with her Comment Review of Relevant I have reviewed the following items filippo (where applicable) has been applied. Labs Laboratory Tests Test 01/07/19 10:50 01/07/19 16:51 01/07/19 20:24 01/07/19 22:41 Glucose (Fingerstick) 190 mg/dL (70-99) 182 mg/dL (70-99) 197 mg/dL (70-99) 182 mg/dL (70-99) Test 01/08/19 07:18 01/08/19 11:41 01/08/19 16:37 01/08/19 20:30 Glucose (Fingerstick) 188 mg/dL (70-99) 182 mg/dL (70-99) 172 mg/dL (70-99) 162 mg/dL (70-99) Test 01/09/19 04:05 01/09/19 04:15 01/09/19 07:25 White Blood Count 11.1 x10^3/uL (4.0-11.0) Red Blood Count 2.87 x10^6/uL (3.50-5.40) Hemoglobin 9.1 g/dL (12.0-15.5) Hematocrit 30.0 % (36.0-47.0) Mean Corpuscular Volume 105 fL (79-100) Mean Corpuscular Hemoglobin 32 pg (25-35) Mean Corpuscular Hemoglobin Concent 30 g/dL (31-37) Red Cell Distribution Width 15.1 % (11.5-14.5) Platelet Count 261 x10^3/uL (140-400) Neutrophils (%) (Auto) 76 % (31-73) Lymphocytes (%) (Auto) 11 % (24-48) Monocytes (%) (Auto) 9 % (0-9) Eosinophils (%) (Auto) 3 % (0-3) Basophils (%) (Auto) 1 % (0-3) Neutrophils # (Auto) 8.5 x10^3/uL (1.8-7.7) Lymphocytes # (Auto) 1.3 x10^3/uL (1.0-4.8) Monocytes # (Auto) 0.9 x10^3/uL (0.0-1.1) Eosinophils # (Auto) 0.3 x10^3/uL (0.0-0.7) Basophils # (Auto) 0.1 x10^3/uL (0.0-0.2) Sodium Level 139 mmol/L (136-145) Potassium Level 4.4 mmol/L (3.5-5.1) Chloride Level 100 mmol/L (98-107) Carbon Dioxide Level 31 mmol/L (21-32) Anion Gap 8 (6-14) Blood Urea Nitrogen 35 mg/dL (7-20) Creatinine 7.0 mg/dL (0.6-1.0) Estimated GFR (Cockcroft-Gault) 7.0 Glucose Level 195 mg/dL (70-99) Calcium Level 9.1 mg/dL (8.5-10.1) Glucose (Fingerstick) 186 mg/dL (70-99) Laboratory Tests Test 01/08/19 11:41 01/08/19 16:37 01/08/19 20:30 01/09/19 04:05 Glucose (Fingerstick) 182 mg/dL (70-99) 172 mg/dL (70-99) 162 mg/dL (70-99) White Blood Count 11.1 x10^3/uL (4.0-11.0) Red Blood Count 2.87 x10^6/uL (3.50-5.40) Hemoglobin 9.1 g/dL (12.0-15.5) Hematocrit 30.0 % (36.0-47.0) Mean Corpuscular Volume 105 fL (79-100) Mean Corpuscular Hemoglobin 32 pg (25-35) Mean Corpuscular Hemoglobin Concent 30 g/dL (31-37) Red Cell Distribution Width 15.1 % (11.5-14.5) Platelet Count 261 x10^3/uL (140-400) Neutrophils (%) (Auto) 76 % (31-73) Lymphocytes (%) (Auto) 11 % (24-48) Monocytes (%) (Auto) 9 % (0-9) Eosinophils (%) (Auto) 3 % (0-3) Basophils (%) (Auto) 1 % (0-3) Neutrophils # (Auto) 8.5 x10^3/uL (1.8-7.7) Lymphocytes # (Auto) 1.3 x10^3/uL (1.0-4.8) Monocytes # (Auto) 0.9 x10^3/uL (0.0-1.1) Eosinophils # (Auto) 0.3 x10^3/uL (0.0-0.7) Basophils # (Auto) 0.1 x10^3/uL (0.0-0.2) Test 01/09/19 04:15 01/09/19 07:25 Sodium Level 139 mmol/L (136-145) Potassium Level 4.4 mmol/L (3.5-5.1) Chloride Level 100 mmol/L (98-107) Carbon Dioxide Level 31 mmol/L (21-32) Anion Gap 8 (6-14) Blood Urea Nitrogen 35 mg/dL (7-20) Creatinine 7.0 mg/dL (0.6-1.0) Estimated GFR (Cockcroft-Gault) 7.0 Glucose Level 195 mg/dL (70-99) Calcium Level 9.1 mg/dL (8.5-10.1) Glucose (Fingerstick) 186 mg/dL (70-99) Microbiology 12/27/18 Aerobic Culture - Final, Complete 12/27/18 Aerobic Culture Result 1 (MANPREET) - Final, Complete 12/27/18 Aerobic Culture Result 2 (MANPREET) - Final, Complete 12/27/18 Antimicrobic Susceptibility - Final, Complete 12/27/18 Gram Stain - Final, Complete 12/27/18 Gram Stain Result 1 (MANPREET) - Final, Complete 12/27/18 Gram Stain Result 2 (MANPREET) - Final, Complete 12/27/18 Gram Stain Result 3 (MANPREET) - Final, Complete Medications Current Medications Ondansetron HCl (Zofran) 4 mg PRN Q6HRS PRN IV NAUSEA/VOMITING Last administered on 01/05/19 16:25; Start 12/27/18 at 16:30 Calcium Carbonate/ Glycine (Tums) 500 mg PRN Q3HRS PRN PO UPSET STOMACH; Start 12/27/18 at 16:30 Zolpidem Tartrate (Ambien) 5 mg PRN QHS PRN PO INSOMNIA, MAY REPEAT IN 1HR; Start 12/27/18 at 16:30 Oxycodone HCl (Roxicodone) 5 mg PRN Q3HRS PRN PO BREAKTHROUGH PAIN Last administered on 01/09/19 06:31; Start 12/27/18 at 16:30 Morphine Sulfate (Morphine Sulfate) 1 mg PRN Q1HR PRN IV PAIN; Start 12/27/18 at 16:30; Stop 12/27/18 at 16:39; Status DC Acetaminophen (Tylenol) 650 mg PRN Q6HRS PRN PO Headaches, Temp > 101.5F; Start 12/27/18 at 16:30 Docusate Sodium (Colace) 100 mg BID PO Last administered on 01/08/19 21:00; Start 12/27/18 at 21:00 Magnesium Hydroxide (Milk Of Magnesia) 2,400 mg PRN Q12HR PRN PO CONSTIPATION Last administered on 01/05/19 08:57; Start 12/27/18 at 16:30 Bisacodyl (Dulcolax Supp) 10 mg PRN DAILY PRN ME CONSTIPATION Last administered on 01/07/19 04:12; Start 12/27/18 at 16:30 Ondansetron HCl (Zofran) 4 mg PRN Q6HRS PRN IVP NAUSEA/VOMITING; Start 12/07 04/26 at 16:30; Stop 12/28/18 at 11:31; Status DC Clonidine HCl (Catapres) 0.1 mg PRN Q1HR PRN PO HYPERTENSION; Start 12/27/18 at 16:30 Aspirin (Children'S Aspirin) 81 mg DAILY PO Last administered on 01/08/19 08:11; Start 12/28/18 at 09:00 Atorvastatin Calcium (Lipitor) 20 mg HS PO Last administered on 01/08/19 21:00; Start 12/27/18 at 21:00 Carvedilol (Coreg) 6.25 mg BIDWMEALS PO Last administered on 10/24/19at 17:39; Start 12/27/18 at 17:00; Stop 12/30/18 at 09:02; Status DC Diclofenac Sodium (Voltaren) 100 charan PRN QID PRN TP PAIN; Start 12/27/18 at 16:30; Stop 01/06/19 at 12:11; Status DC Ferrous Sulfate (Feosol) 325 mg TIDWMEALS PO Last administered on 01/08/19at 17:13; Start 12/27/18 at 17:00 Acetaminophen/ Hydrocodone Bitart (Lortab 10/325) 1 tab PRN Q6HRS PRN PO MODERATE PAIN Last administered on 01/08/19 11:49; Start 12/27/18 at 16:30 Levothyroxine Sodium (Synthroid) 150 mcg DAILYAC PO Last administered on 01/09/19 06:31; Start 12/28/18 at 07:30 Losartan Potassium (Cozaar) 25 mg DAILY PO ; Start 12/28/18 at 09:00; Stop 12/31/18 at 09:09; Status DC Non-Formulary Medication (Albuterol Sulfate (Ventolin Hfa Inhaler)) 2 puff QID INH ; Start 12/27/18 at 17:00; Status UNV Non-Formulary Medication (Fluticasone/ Vilanterol (Breo Ellipta 100-25 Mcg Inh)) 1 puff DAILY PRN IH daily; Start 12/27/18 at 16:30; Status UNV Insulin Human Lispro (HumaLOG) 10 units TIDWMEALS SQ Last administered on 12/30/18at 20:05; Start 12/27/18 at 17:30; Stop 12/31/18 at 07:32; Status DC Pantoprazole Sodium (Protonix) 40 mg DAILYAC PO Last administered on 01/09/19 06:31; Start 12/28/18 at 07:30 Albuterol Sulfate (Ventolin Neb Soln) 2.5 mg RTQID NEB Last administered on 01/09/19at 07:10; Start 12/27/18 at 20:00 Budesonide (Pulmicort) 0.5 mg RTBID NEB Last administered on 01/09/19at 07:10; Start 12/27/18 at 20:00 Morphine Sulfate (Morphine Sulfate) 2 mg PRN Q2HR PRN IV MODERATE PAIN Last administered on 01/04/19at 13:26; Start 12/27/18 at 16:45 Cefepime HCl (Maxipime) 1 gm Q24H IVP Last administered on 01/08/19at 21:00; Start 12/27/18 at 18:00 Vancomycin HCl (Vanco Per Pharmacy) 1 each PRN DAILY PRN MC SEE COMMENTS Last administered on 01/08/19at 14:55; Start 12/27/18 at 17:15 Vancomycin HCl 1.5 gm/Sodium Chloride 500 ml @ 250 mls/hr 1X ONCE IV Last administered on 12/27/18at 18:02; Start 12/27/18 at 17:30; Stop 12/27/18 at 19:29; Status DC Vancomycin HCl (Vancomycin Random Level) 1 each 1X ONCE MC Last administered on 12/28/18at 06:00; Start 12/28/18 at 06:00; Stop 12/28/18 at 06:01; Status DC Sodium Polystyrene Sulfonate (Kayexalate) 15 gm 1X ONCE PO Last administered on 12/28/18at 05:57; Start 12/28/18 at 05:45; Stop 12/28/18 at 05:46; Status DC Sodium Chloride 1,000 ml @ 1,000 mls/hr Q1H PRN IV hypotension; Start 12/28/18 at 08:10; Stop 12/28/18 at 14:09; Status DC Albumin Human 200 ml @ 200 mls/hr 1X PRN PRN IV Hypotension; Start 12/28/18 at 08:15; Stop 12/28/18 at 14:14; Status DC Acetaminophen (Tylenol) 500 mg 1X PRN PRN PO MILD PAIN / TEMP; Start 12/28/18 at 08:15; Stop 12/29/18 at 08:14; Status DC Diphenhydramine HCl (Benadryl) 25 mg 1X PRN PRN IV ITCHING; Start 12/28/18 at 08:15; Stop 12/29/18 at 08:14; Status DC Diphenhydramine HCl (Benadryl) 25 mg 1X PRN PRN IV ITCHING; Start 12/28/18 at 08:15; Stop 12/29/18 at 08:14; Status DC Sodium Chloride 1,000 ml @ 400 mls/hr Q2H30M PRN IV PATENCY; Start 12/28/18 at 08:10; Stop 12/28/18 at 20:09; Status DC Info (PHARMACY MONITORING -- do not chart) 1 each PRN DAILY PRN MC SEE COMMENTS; Start 12/28/18 at 08:15; Stop 12/30/18 at 13:48; Status DC Vancomycin HCl 500 mg/Sodium Chloride 100 ml @ 100 mls/hr QMWF IV Last administered on 01/06/19at 16:23; Start 12/30/18 at 16:00 Lactobacillus Rhamnosus (Culturelle) 1 cap BID PO Last administered on 01/08/19at 21:00; Start 12/28/18 at 21:00 Iodixanol (Visipaque 320) 100 ml STK-MED ONCE .ROUTE ; Start 12/29/18 at 09:27; Stop 12/29/18 at 09:27; Status DC Lidocaine HCl (Buffered Lidocaine 1%) 3 ml STK-MED ONCE .ROUTE ; Start 12/29/18 at 09:27; Stop 12/29/18 at 09:27; Status DC Heparin Sodium/ Sodium Chloride 500 ml @ As Directed STK-MED ONCE .ROUTE ; Start 12/29/18 at 09:27; Stop 12/29/18 at 09:27; Status DC Midazolam HCl (Versed) 2 mg STK-MED ONCE .ROUTE ; Start 12/29/18 at 09:29; Stop 12/29/18 at 09:29; Status DC Fentanyl Citrate (Fentanyl 2ml Vial) 100 mcg STK-MED ONCE .ROUTE ; Start 12/29/18 at 09:29; Stop 12/29/18 at 09:29; Status DC Heparin Sodium (Porcine) (Heparin Sodium) 10,000 unit STK-MED ONCE .ROUTE ; Start 12/29/18 at 09:29; Stop 12/29/18 at 09:30; Status DC Heparin Sodium/ Sodium Chloride (HEPARIN for ARTERIAL LINE FLUSH) 1,000 unit 1X ONCE IART Last administered on 12/29/18at 10:00; Start 12/29/18 at 10:00; Stop 12/29/18 at 10:01; Status DC Lidocaine HCl (Buffered Lidocaine 1%) 3 ml 1X ONCE IJ Last administered on 12/29/18at 10:00; Start 12/29/18 at 10:00; Stop 12/29/18 at 10:01; Status DC Midazolam HCl (Versed) 2 mg 1X ONCE IV Last administered on 12/29/18at 10:00; Start 12/29/18 at 10:00; Stop 12/29/18 at 10:01; Status DC Fentanyl Citrate (Fentanyl 2ml Vial) 100 mcg 1X ONCE IV Last administered on 12/29/18at 10:00; Start 12/29/18 at 10:00; Stop 12/29/18 at 10:01; Status DC Iodixanol (Visipaque 320) 100 ml 1X ONCE IART Last administered on 12/29/18at 10:00; Start 12/29/18 at 10:00; Stop 12/29/18 at 10:01; Status DC Heparin Sodium (Porcine) (Heparin Sodium) 3,000 unit 1X ONCE IV Last admi nistered on 12/29/18at 10:30; Start 12/29/18 at 10:30; Stop 12/29/18 at 10:32; Status DC Iodixanol (Visipaque 320) 50 ml STK-MED ONCE .ROUTE ; Start 12/29/18 at 10:43; Stop 12/29/18 at 10:43; Status DC Iodixanol (Visipaque 320) 50 ml 1X ONCE IART Last administered on 12/29/18at 10:45; Start 12/29/18 at 10:45; Stop 12/29/18 at 10:46; Status DC Info (CONTRAST GIVEN -- Rx MONITORING) 1 each PRN DAILY PRN MC SEE COMMENTS; Start 12/29/18 at 11:00; Stop 12/31/18 at 10:59; Status DC Carvedilol (Coreg) 3.125 mg BIDWMEALS PO Last administered on 01/08/19at 08:11; Start 12/30/18 at 09:00 Insulin Glargine (Lantus Syringe) 20 unit QHS SQ Last administered on 12/30/18at 21:00; Start 12/30/18 at 21:00; Stop 12/31/18 at 07:32; Status DC Insulin Glargine (Lantus Syringe) 10 unit ONCE ONCE SQ Last administered on 12/30/18at 09:48; Start 12/30/18 at 10:00; Stop 12/30/18 at 10:01; Status DC Sodium Chloride 1,000 ml @ 1,000 mls/hr Q1H PRN IV hypotension; Start 12/30/18 at 12:21; Stop 12/30/18 at 18:20; Status DC Diphenhydramine HCl (Benadryl) 25 mg 1X PRN PRN IV ITCHING; Start 12/30/18 at 12:30; Stop 12/31/18 at 12:29; Status DC Diphenhydramine HCl (Benadryl) 25 mg 1X PRN PRN IV ITCHING; Start 12/30/18 at 12:30; Stop 12/31/18 at 12:29; Status DC Sodium Chloride 1,000 ml @ 400 mls/hr Q2H30M PRN IV PATENCY; Start 12/30/18 at 12:21; Stop 12/31/18 at 00:20; Status DC Info (PHARMACY MONITORING -- do not chart) 1 each PRN DAILY PRN MC SEE COMMENTS; Start 12/30/18 at 12:30; Stop 01/04/19 at 14:19; Status DC Insulin Human Lispro (HumaLOG) 15 units 1X ONCE SQ Last administered on 12/30/18at 22:59; Start 12/30/18 at 23:00; Stop 12/30/18 at 23:01; Status DC Insulin Glargine (Lantus Syringe) 30 unit QHS SQ Last administered on 01/08/19at 21:08; Start 12/31/18 at 21:00 Insulin Human Lispro (HumaLOG) 15 units TIDWMEALS SQ Last administered on 01/01/19at 08:22; Start 12/31/18 at 08:00; Stop 01/01/19 at 08:35; Status DC Insulin Human Lispro (HumaLOG) 8 units TIDWMEALS SQ Last administered on at 16:52; Start 01/01/19 at 12:00; Stop 01/02/19 at 07:40; Status DC Insulin Human Lispro (HumaLOG) 12 units 1X ONCE SQ Last administered on 01/01/19at 21:14; Start 01/01/19 at 21:00; Stop 01/01/19 at 21:01; Status DC Losartan Potassium (Cozaar) 25 mg DAILY PO Last administered on 01/08/19at 08:11; Start 01/02/19 at 09:00 Insulin Human Lispro (HumaLOG) 10 units TIDWMEALS SQ Last administered on 01/08/19at 17:15; Start 01/02/19 at 07:45 Sodium Chloride 1,000 ml @ 1,000 mls/hr Q1H PRN IV hypotension; Start 01/02/19 at 08:18; Stop 01/02/19 at 14:17; Status DC Acetaminophen (Tylenol) 500 mg 1X PRN PRN PO MILD PAIN / TEMP; Start 01/02/19 at 08:30; Stop 01/03/19 at 08:29; Status DC Diphenhydramine HCl (Benadryl) 25 mg 1X PRN PRN IV ITCHING; Start 01/02/19 at 08:30; Stop 01/03/19 at 08:29; Status DC Diphenhydramine HCl (Benadryl) 25 mg 1X PRN PRN IV ITCHING; Start 01/02/19 at 08:30; Stop 01/03/19 at 08:29; Status DC Sodium Chloride 1,000 ml @ 400 mls/hr Q2H30M PRN IV PATENCY; Start 01/02/19 at 08:18; Stop 01/02/19 at 20:17; Status DC Info (PHARMACY MONITORING -- do not chart) 1 each PRN DAILY PRN MC SEE COMMENTS; Start 01/02/19 at 08:30; Status UNV Vancomycin HCl (Vancomycin Random Level) 1 each 1X ONCE MC Last administered o n 01/04/19at 07:30; Start 01/04/19 at 06:00; Stop 01/04/19 at 06:01; Status DC Iodixanol (Visipaque 320) 100 ml STK-MED ONCE .ROUTE ; Start 01/02/19 at 13:20; Stop 01/02/19 at 13:20; Status DC Lidocaine HCl (Buffered Lidocaine 1%) 3 ml STK-MED ONCE .ROUTE ; Start 01/02/19 at 13:20; Stop 01/02/19 at 13:21; Status DC Heparin Sodium/ Sodium Chloride 1,000 ml @ As Directed STK-MED ONCE .ROUTE ; Start 01/02/19 at 13:21; Stop 01/02/19 at 13:21; Status DC Midazolam HCl (Versed) 2 mg STK-MED ONCE .ROUTE ; Start 01/02/19 at 13:52; Stop 01/02/19 at 13:53; Status DC Fentanyl Citrate (Fentanyl 2ml Vial) 100 mcg STK-MED ONCE .ROUTE ; Start 01/02/19 at 13:52; Stop 01/02/19 at 13:53; Status DC Iodixanol (Visipaque 320) 100 ml STK-MED ONCE .ROUTE ; Start 01/02/19 at 14:22; Stop 01/02/19 at 14:22; Status DC Heparin Sodium/ Sodium Chloride (HEPARIN for ARTERIAL LINE FLUSH) 1,000 unit 1X ONCE IART Last administered on 01/02/19at 14:51; Start 01/02/19 at 14:45; Stop 01/02/19 at 15:04; Status DC Heparin Sodium/ Sodium Chloride (HEPARIN for ARTERIAL LINE FLUSH) 1,000 unit 1X ONCE IART Last administered on 01/02/19at 14:45; Start 01/02/19 at 14:45; Stop 01/02/19 at 15:04; Status DC Lidocaine HCl (Buffered Lidocaine 1%) 2 ml 1X ONCE IJ Last administered on 01/02/19at 14:52; Start 01/02/19 at 14:45; Stop 01/02/19 at 15:04; Status DC Midazolam HCl (Versed) 1 mg 1X ONCE IV Last administered on 01/02/19at 14:52; Start 01/02/19 at 14:45; Stop 01/02/19 at 15:04; Status DC Fentanyl Citrate (Fentanyl 2ml Vial) 25 mcg 1X ONCE IV Last administered on 01/02/19at 14:53; Start 01/02/19 at 14:45; Stop 01/02/19 at 15:04; Status DC Iodixanol (Visipaque 320) 100 ml 1X ONCE IART Last administered on 01/02/19at 14:52; Start 01/02/19 at 14:45; Stop 01/02/19 at 15:04; Status DC Ondansetron HCl (Zofran) 4 mg PRN Q6HRS PRN IV NAUSEA/VOMITING; Start 01/03/19 at 11:00; Stop 01/04/19 at 10:59; Status DC Morphine Sulfate (Morphine Sulfate) 1 mg PRN Q10MIN PRN IV SEVERE PAIN 7-10; Start 01/03/19 at 11:00; Stop 01/04/19 at 10:59; Status DC Ringer's Solution 1,000 ml @ 30 mls/hr Q24H IV ; Start 01/03/19 at 10:49; Stop 01/03/19 at 22:48; Status DC Lidocaine HCl (Xylocaine-Mpf 1% 2ml Vial) 2 ml PRN 1X PRN ID PRIOR TO IV START; Start 01/03/19 at 11:00; Stop 01/04/19 at 10:59; Status DC Hydromorphone HCl (Dilaudid) 0.5 mg PRN Q10MIN PRN IV SEV PAIN, Second choice Last administered on 01/03/19at 19:10; Start 01/03/19 at 11:00; Stop 01/04/19 at 10:59; Status DC Prochlorperazine Edisylate (Compazine) 5 mg PACU PRN PRN IV NAUSEA, MRX1 Last administered on 01/03/19at 18:30; Start 01/03/19 at 11:00; Stop 01/04/19 at 10:59; Status DC Insulin Human Lispro (HumaLOG VIAL for OP,RR ONLY) 0-10 units PRN Q1HR PRN SQ PER PROTOCOL Last administered on 01/03/19at 19:14; Start 01/03/19 at 15:15; Stop 01/04/19 at 15:14; Status DC Cefazolin Sodium 1 gm/Dextrose 50 ml @ 100 mls/hr 1X PREOP ONCE IV ; Start 01/03/19 at 15:45; Stop 01/03/19 at 16:14; Status UNV Cefazolin Sodium 50 ml @ 100 mls/hr 1X ONCE IV ; Start 01/03/19 at 16:00; Stop 01/03/19 at 16:29; Status DC Heparin Sodium (Porcine) 5000 unit/Sodium Chloride 505 ml @ 505 mls/hr 1X ONCE IRR ; Start 01/03/19 at 16:17; Stop 01/03/19 at 17:16; Status DC Lidocaine HCl 20 ml STK-MED ONCE .ROUTE ; Start 01/03/19 at 16:17; Stop 01/03/19 at 16:17; Status DC Cellulose (Surgicel Fibrillar 1x2) 1 each STK-MED ONCE .ROUTE ; Start 01/03/19 at 16:17; Stop 01/03/19 at 16:17; Status DC Cefazolin Sodium 1 gm/Sodium Chloride 500 ml @ 500 mls/hr 1X ONCE IRR Last administered on 01/03/19at 17:05; Start 01/03/19 at 16:18; Stop 01/03/19 at 17:17; Status DC Lidocaine HCl 20 ml STK-MED ONCE .ROUTE ; Start 01/03/19 at 16:17; Stop 01/03/19 at 16:18; Status Cancel Morphine Sulfate (Morphine Sulfate) 2 mg STK-MED ONCE .ROUTE ; Start 01/03/19 at 18:04; Stop 01/03/19 at 18:05; Status DC Ondansetron HCl (Zofran) 4 mg STK-MED ONCE .ROUTE ; Start 01/03/19 at 18:07; Stop 01/03/19 at 18:07; Status DC Propofol 20 ml @ As Directed STK-MED ONCE IV ; Start 01/03/19 at 18:07; Stop 01/03/19 at 18:07; Status DC Lidocaine HCl (Lidocaine Pf 2% Vial) 5 ml STK-MED ONCE .ROUTE ; Start 01/03/19 at 18:07; Stop 01/03/19 at 18:07; Status DC Phenylephrine HCl (PHENYLEPHRINE in 0.9% NACL PF) 1 mg STK-MED ONCE IV ; Start 01/03/19 at 18:07; Stop 01/03/19 at 18:07; Status DC Dexamethasone Sodium Phosphate (Decadron) 4 mg STK-MED ONCE .ROUTE ; Start 1 at 18:07; Stop 01/03/19 at 18:07; Status DC Ephedrine Sulfate (ePHEDrine PF IN SALINE SYRINGE) 50 mg STK-MED ONCE IV ; Start 01/03/19 at 18:07; Stop 01/03/19 at 18:07; Status DC Sevoflurane (Ultane) 60 ml STK-MED ONCE IH ; Start 01/03/19 at 18:07; Stop 01/03/19 at 18:07; Status DC Hydromorphone HCl (Dilaudid) 2 mg STK-MED ONCE .ROUTE ; Start 01/03/19 at 18:11; Stop 01/03/19 at 18:11; Status DC Prochlorperazine Edisylate (Compazine) 10 mg STK-MED ONCE .ROUTE ; Start 01/03/19 at 18:18; Stop 01/03/19 at 18:18; Status DC Cefazolin Sodium (Ancef 1gm Ivpb For Omni) 1 gm STK-MED ONCE IV ; Start 01/03/19 at 16:00; Stop 01/04/19 at 08:42; Status DC Lidocaine/ Epinephrine (LIDOCAINE 1%-EPI 1:100,000 Multi-Dose) 20 ml STK-MED ONCE .ROUTE ; Start 01/04/19 at 10:53; Stop 01/04/19 at 10:53; Status DC Midazolam HCl (Versed) 2 mg 1X ONCE IV Last administered on 01/04/19at 12:27; Start 01/04/19 at 12:00; Stop 01/04/19 at 12:04; Status DC Fentanyl Citrate (Fentanyl 2ml Vial) 100 mcg 1X ONCE IV Last administered on 01/04/19at 12:27; Start 01/04/19 at 12:00; Stop 01/04/19 at 12:05; Status DC Lidocaine/ Epinephrine (LIDOCAINE 1%-EPI 1:100,000 Multi-Dose) 20 ml 1X ONCE SQ Last administered on 01/04/19at 12:28; Start 01/04/19 at 12:00; Stop 01/04/19 at 12:04; Status DC Cefazolin Sodium 50 ml @ 100 mls/hr 1X ONCE IV ; Start 01/04/19 at 12:00; Stop 01/04/19 at 12:29; Status Cancel Cefazolin Sodium 0 ml @ As Directed STK-MED ONCE IV ; Start 01/04/19 at 12:04; Stop 01/04/19 at 12:05; Status DC Midazolam HCl (Versed) 2 mg STK-MED ONCE .ROUTE ; Start 01/04/19 at 12:05; Stop 01/04/19 at 12:05; Status DC Fentanyl Citrate (Fentanyl 2ml Vial) 100 mcg STK-MED ONCE .ROUTE ; Start 01/04/19 at 12:05; Stop 01/04/19 at 12:05; Status DC Hydromorphone HCl (Dilaudid) 1 mg PRN Q3HRS PRN IV SEVERE PAIN Last administered on 01/04/19at 14:28; Start 01/04/19 at 14:00 Sodium Chloride 1,000 ml @ 1,000 mls/hr Q1H PRN IV hypotension; Start 01/04/19 at 14:14; Stop 01/04/19 at 20:13; Status DC Diphenhydramine HCl (Benadryl) 25 mg 1X PRN PRN IV ITCHING; Start 01/04/19 at 14:15; Stop 01/05/19 at 14:14; Status DC Diphenhydramine HCl (Benadryl) 25 mg 1X PRN PRN IV ITCHING; Start 01/04/19 at 14:15; Stop 01/05/19 at 14:14; Status DC Sodium Chloride 1,000 ml @ 400 mls/hr Q2H30M PRN IV PATENCY; Start 01/04/19 at 14:14; Stop 01/05/19 at 02:13; Status DC Info (PHARMACY MONITORING -- do not chart) 1 each PRN DAILY PRN MC SEE COMMENTS; Start 01/04/19 at 14:15; Stop 01/06/19 at 12:08; Status DC Sodium Chloride 500 ml @ 500 mls/hr 1X ONCE IV ; Start 01/06/19 at 07:45; Stop 01/06/19 at 08:44; Status DC Sodium Chloride 1,000 ml @ 1,000 mls/hr Q1H PRN IV hypotension; Start 01/06/19 at 08:10; Stop 01/06/19 at 14:09; Status DC Acetaminophen (Tylenol) 500 mg 1X PRN PRN PO MILD PAIN / TEMP; Start 01/06/19 at 08:15; Stop 01/07/19 at 08:14; Status DC Diphenhydramine HCl (Benadryl) 25 mg 1X PRN PRN IV ITCHING; Start 01/06/19 at 08:15; Stop 01/07/19 at 08:14; Status DC Diphenhydramine HCl (Benadryl) 25 mg 1X PRN PRN IV ITCHING; Start 01/06/19 at 08:15; Stop 01/07/19 at 08:14; Status DC Sodium Chloride 1,000 ml @ 400 mls/hr Q2H30M PRN IV PATENCY; Start 01/06/19 at 08:10; Stop 01/06/19 at 20:09; Status DC Info (PHARMACY MONITORING -- do not chart) 1 each PRN DAILY PRN MC SEE COMMENTS; Start 01/06/19 at 08:15 Diclofenac Sodium (Voltaren) 1 charan PRN QID PRN TP JOINT PAIN; Start 01/06/19 at 12:15 Darbepoetin Abisai (ARANESP for DIALYSIS PTS) 60 mcg WEEKLYHS SQ Last administered on 01/06/19at 21:13; Start 01/06/19 at 21:00 Sodium Chloride 1,000 ml @ 1,000 mls/hr Q1H PRN IV hypotension; Start 01/09/19 at 08:05; Stop 01/09/19 at 14:04 Albumin Human 200 ml @ 200 mls/hr 1X PRN PRN IV Hypotension; Start 01/09/19 at 08:15; Stop 01/09/19 at 14:14 Sodium Chloride (Normal Saline Flush) 10 ml 1X PRN PRN IV AP catheter pack; Start 01/09/19 at 08:15; Stop 01/10/19 at 08:14 Sodium Chloride (Normal Saline Flush) 10 ml 1X PRN PRN IV FISHER CRAB catheter pack; Start 01/09/19 at 08:15; Stop 01/10/19 at 08:14 Sodium Chloride 1,000 ml @ 400 mls/hr Q2H30M PRN IV PATENCY; Start 01/09/19 at 08:05; Stop 01/09/19 at 20:04 Info (PHARMACY MONITORING -- do not chart) 1 each PRN DAILY PRN MC SEE COMMENTS; Start 01/09/19 at 08:15; Stop 01/09/19 at 08:12; Status DC Info (PHARMACY MONITORING -- do not chart) 1 each PRN DAILY PRN MC SEE COMMENTS; Start 01/09/19 at 08:15; Stop 01/09/19 at 08:12; Status DC Active Scripts Active Reported Augmentin 875-125 Tablet (Amoxicillin/Potassium Clav) 1 Each Tablet 1 Tab PO BID Protonix (Pantoprazole Sodium) 20 Mg Tablet.dr 40 Mg PO DAILY Lipitor (Atorvastatin Calcium) 20 Mg Tablet 20 Mg PO HS Aspirin 81 Mg Tab.chew 1 Tab PO DAILY Losartan Potassium 50 Mg Tablet 25 Mg PO DAILY Tums (Calcium Carbonate) 200 Mg Tab.chew 2 Tab PO TIDAC Breo Ellipta 100-25 Mcg Inh (Fluticasone/Vilanterol) 1 Each Aer.pow.ba 1 Puff IH DAILY PRN Ventolin Hfa Inhaler (Albuterol Sulfate) 18 Gm Hfa.aer.ad 2 Puff INH QID Ferrous Sulfate 325 Mg Tablet 325 Mg PO TID Docusate Sodium 100 Mg Capsule 100 Mg PO BID Humulin R U-500 Kwikpen (Insulin Regular, Human) 500 Unit/1 Ml Insuln.pen 10 Unit SQ TIDAC U-500 Voltaren (Diclofenac Sodium) 100 Gm Gel..gram. 100 Gm TP PRN QID PRN [place] 10-325 Tablet (Acetaminophen/Hydrocodone Bitart) 1 Each Tablet 1 Tab PO PRN Q6HRS PRN Levothyroxine Sodium 150 Mcg Tablet 150 Mcg PO DAILYAC Carvedilol (Carvedilol) 6.25 Mg Tablet 6.25 Mg PO BIDWMEALS Vitals/I & O Vital Sign - Last 24 Hours 01/08/19 01/08/19 01/08/19 01/08/19 11:10 11:48 11:49 12:55 Temp 97.8 97.8 Pulse 82 Resp 18 B/P (MAP) 115/47 (69) Pulse Ox 94 94 O2 Delivery Nasal Cannula Nasal Cannula Nasal Cannula Nasal Cannula O2 Flow Rate 2.0 2.0 2.0 2.0 01/08/19 01/08/19 01/08/19 01/08/19 13:48 14:56 15:28 16:23 Temp 97.5 97.5 Pulse 78 Resp 18 B/P (MAP) 100/42 (61) Pulse Ox 94 98 100 O2 Delivery Room Air Nasal Cannula Nasal Cannula Nasal Cannula O2 Flow Rate 2.0 2.0 2.0 01/08/19 01/08/19 01/08/19 01/08/19 17:53 18:59 19:00 19:00 Temp 96.4 96.4 Pulse 81 Resp 18 B/P (MAP) 107/52 (70) Pulse Ox 97 O2 Delivery Nasal Cannula Nasal Cannula Nasal Cannula Nasal Cannula O2 Flow Rate 2.0 2.0 2.0 01/08/19 01/08/19 01/08/19 01/09/19 19:39 19:40 23:03 00:47 Temp 96.6 96.6 Pulse 78 Resp 20 B/P (MAP) 93/35 (54) Pulse Ox 96 96 97 100 O2 Delivery Nasal Cannula Nasal Cannula Nasal Cannula BiPAP/CPAP O2 Flow Rate 2.0 2.0 01/09/19 01/09/19 01/09/19 01/09/19 03:15 03:56 05:39 06:31 Temp 97.5 97.5 Pulse 78 Resp 20 19 B/P (MAP) 109/45 (66) Pulse Ox 91 100 100 O2 Delivery BiPAP/CPAP BiPAP/CPAP BiPAP/CPAP Nasal Cannula O2 Flow Rate 2.0 01/09/19 01/09/19 07:00 07:12 Temp 97.9 97.9 Pulse 82 Resp 17 B/P (MAP) 117/49 (71) Pulse Ox 100 90 O2 Delivery Nasal Cannula Nasal Cannula O2 Flow Rate 2.0 2.0 Intake and Output 01/08/19 01/08/19 01/09/19 15:00 23:00 07:00 Intake Total 550 ml 250 ml Output Total 0 ml Balance 550 ml 250 ml 0 ml KIMBERLY LOPEZ MD Jan 09, 2019 09:04
[2019-01-09] MEDS ORDERED: INSU100V8 SQ (09:07)
[2019-01-09] MEDS ORDERED: CARV3.1210 PO (09:07)
[2019-01-09] MEDS ORDERED: HYDR-3135 PO (09:07)
--- NOTE | 2019-01-09 09:08 | SNU/HH DC ---
DISCHARGE WITH HOME HEALTH DISCHARGE INFORMATION: Discharge Date: Jan 09, 2019 Condition on Discharge: Stable CODE STATUS: Code Status: Full HOME HEALTH: Face to Face: I certify this patient is under my care and that I, or a nurse practitioner or physician's veterinary technician assistant working with me, had a face to face encounter that meets the physician face to face encounter requirements with this patient on []. RN For Eval/Treatment: Yes Physical Therapy For: Evalulation/Treatment Occupational Therapy For: Evaluation/Treatment Speech Language Pathology For: Evaluation/Treatment Home Health Aide For: Self-care ASSET PROTECTION MANAGER For: Community Resources Pt Meets Homebound Status: Unsteady balance w/ amb, POST DISCHARGE ORDERS: Activity Instructions for Disc: Resume previous activity DIET AFTER DISCHARGE: ADA Wound/Incision Care: Other, see below CHECKS AFTER DISCHARGE: Checks after discharge: Check blood press - daily, Check blood sugar, ac/hs FOLLOW-UP: PCP to follow Home Health: wound care left thumb Follow up with: can we get cpap for home? she is using bipap qhs in hospital TREATMENT/EQUIPMENT ORDERS: Adaptive Equipment Issued: Front wheeled walker CERTIFICATION STATEMENT: Certification Statement: Certification Statement: Based on the above finding, I certify that this patient is confined to the home and needs intermittent care home care, physical therapy and/or speech therapy, or continues to need occupational therapy.~ This patient is under my care, and I have initiated the establishment of the plan of care.~ This patient will be followed by myself or a community physician who will periodically review the plan of care. Home Meds Active Scripts Insulin Glargine,Hum.rec.anlog (LANTUS) 100 Unit/1 Ml Vial, 30 UNIT SQ QHS for dm for 30 Days, EACH Prov:KIMBERLY LOPEZ MD 01/09/19 Carvedilol (CARVEDILOL ) 3.125 Mg Tablet, 3.125 MG PO BIDWMEALS for chf, htn, #60 TAB Prov:KIMBERLY LOPEZ MD 01/09/19 Hydrocodone/Apap 10-325 (NORCO 10-325 TABLET) 1 Each Tablet, 1 TAB PO PRN Q6HRS PRN for PAIN, #30 TAB 0 Refills Prov:KIMBERLY LOPEZ MD 01/09/19 Reported Medications Pantoprazole Sodium (PROTONIX) 20 Mg Tablet.dr, 40 MG PO DAILY for GERD, TAB 04/12/18 Atorvastatin Calcium (LIPITOR) 20 Mg Tablet, 20 MG PO HS for FOR CHOLESTEROL, #30 TAB 0 Refills 04/12/18 Aspirin (ASPIRIN) 81 Mg Tab.chew, 1 TAB PO DAILY for BLOOD THINNER, #30 TAB 3 Refills 04/12/18 Losartan Potassium (LOSARTAN POTASSIUM) 50 Mg Tablet, 25 MG PO DAILY for HYPERTENSION, TAB 04/12/18 Calcium Carbonate (TUMS) 200 Mg Tab.chew, 2 TAB PO TIDAC for calcium supplement, TAB.CHEW 01/10/18 Fluticasone/Vilanterol (BREO ELLIPTA 100-25 MCG INH) 1 Each Aer.pow.ba, 1 PUFF IH DAILY PRN for daily, INHALER 01/10/18 Albuterol Sulfate (VENTOLIN HFA INHALER) 18 Gm Hfa.aer.ad, 2 PUFF INH QID for FOR ASTHMA, INHALER 0 Refills 01/10/18 Ferrous Sulfate (FERROUS SULFATE) 325 Mg Tablet, 325 MG PO TID for anemia, TAB 01/10/18 Docusate Sodium (DOCUSATE SODIUM) 100 Mg Capsule, 100 MG PO BID for constipation, CAP 01/10/18 Insulin Regular, Human (Humulin R U-500 Kwikpen) 500 Unit/1 Ml Insuln.pen, 10 UNIT SQ TIDAC for diabetes, EACH U-500 01/10/18 Diclofenac Sodium (VOLTAREN) 100 Gm Gel..gram., 100 GM TP PRN QID PRN for PAIN, EACH 01/10/18 Levothyroxine Sodium (LEVOTHYROXINE SODIUM) 150 Mcg Tablet, 150 MCG PO DAILYAC for THYROID SUPPLEMENT, #30 TAB 0 Refills 01/10/18 Discontinued Reported Medications Amoxicillin/Potassium Clav (AUGMENTIN 875-125 TABLET) 1 Each Tablet, 1 TAB PO BID for ANTIBIOTIC, #14 TAB 04/12/18 Carvedilol (CARVEDILOL ) 6.25 Mg Tablet, 6.25 MG PO BIDWMEALS for hypertension, TAB 01/10/18 KIMBERLY LOPEZ MD Jan 09, 2019 09:08
[2019-01-09] MEDS: INSULIN LISPRO 300 UNITS/3 ML VIAL. SQ SCH ×3 (09:22→17:00)
--- NOTE | 2019-01-09 09:44 | PDOC ---
Infectious Disease Note Subjective Subjective awake, says feeling good ROS ROS no n/v/d/sob Vital Sign Vital Signs Vital Signs Date Time Temp Pulse Resp B/P (MAP) Pulse Ox O2 Delivery O2 Flow Rate FiO2 01/09/19 07:12 90 Nasal Cannula 2.0 01/09/19 07:00 97.9 82 17 117/49 (71) 97.9 Physical Exam PHYSICAL EXAM GENERAL: Propped up in chair, alert - NAD - looks well HEENT: nml marcie. OC/Op - clear NECK: Supple LUNGS: Clear bilaterally. HEART: S1, S2. ABDOMEN: Soft, obese. Decreased Bowel sounds, nontender but some distension. EXTREMITIES: Edema present, chronic. DERMATOLOGIC: Left hand with vac and dressing in place NEUROLOGIC: Alert, answers questions R chest HD cath - clean Labs Lab Laboratory Tests Test 01/08/19 11:41 01/08/19 16:37 01/08/19 20:30 01/09/19 04:05 Glucose (Fingerstick) 182 mg/dL (70-99) 172 mg/dL (70-99) 162 mg/dL (70-99) White Blood Count 11.1 x10^3/uL (4.0-11.0) Red Blood Count 2.87 x10^6/uL (3.50-5.40) Hemoglobin 9.1 g/dL (12.0-15.5) Hematocrit 30.0 % (36.0-47.0) Mean Corpuscular Volume 105 fL (79-100) Mean Corpuscular Hemoglobin 32 pg (25-35) Mean Corpuscular Hemoglobin Concent 30 g/dL (31-37) Red Cell Distribution Width 15.1 % (11.5-14.5) Platelet Count 261 x10^3/uL (140-400) Neutrophils (%) (Auto) 76 % (31-73) Lymphocytes (%) (Auto) 11 % (24-48) Monocytes (%) (Auto) 9 % (0-9) Eosinophils (%) (Auto) 3 % (0-3) Basophils (%) (Auto) 1 % (0-3) Neutrophils # (Auto) 8.5 x10^3/uL (1.8-7.7) Lymphocytes # (Auto) 1.3 x10^3/uL (1.0-4.8) Monocytes # (Auto) 0.9 x10^3/uL (0.0-1.1) Eosinophils # (Auto) 0.3 x10^3/uL (0.0-0.7) Basophils # (Auto) 0.1 x10^3/uL (0.0-0.2) Segmented Neutrophils % 82 % (35-66) Lymphocytes % 11 % (24-48) Monocytes % 6 % (0-10) Eosinophils % 1 % (0-5) Platelet Estimate Adequate (ADEQUATE) Polychromasia Slight Basophilic Stippling Present Anisocytosis Slight Test 01/09/19 04:15 01/09/19 07:25 Sodium Level 139 mmol/L (136-145) Potassium Level 4.4 mmol/L (3.5-5.1) Chloride Level 100 mmol/L (98-107) Carbon Dioxide Level 31 mmol/L (21-32) Anion Gap 8 (6-14) Blood Urea Nitrogen 35 mg/dL (7-20) Creatinine 7.0 mg/dL (0.6-1.0) Estimated GFR (Cockcroft-Gault) 7.0 Glucose Level 195 mg/dL (70-99) Calcium Level 9.1 mg/dL (8.5-10.1) Glucose (Fingerstick) 186 mg/dL (70-99) Micro Microbiology 12/27/18 Aerobic Culture - Final, Complete 12/27/18 Aerobic Culture Result 1 (MANPREET) - Final, Complete 12/27/18 Aerobic Culture Result 2 (MANPREET) - Final, Complete 12/27/18 Antimicrobic Susceptibility - Final, Complete 12/27/18 Gram Stain - Final, Complete 12/27/18 Gram Stain Result 1 (MANPREET) - Final, Complete 12/27/18 Gram Stain Result 2 (MANPREET) - Final, Complete 12/27/18 Gram Stain Result 3 (MANPREET) - Final, Complete Objective Assessment Acute resp failure on Bipap and more alert -better S/p left arm radiocephalic fistula ligation, left 1st finger tip amputation and debridement of the thumb, left 3rd finger debridement 01/03 Left thumb infection, C/S GPC,GPR - mixed skin emre & enterococcus spp 12/27 Left 3rd finger dry eschar Leukocytosis - stable in part reactive with steal. S/p Dexamethasone 01/03 Steal phenomenon End-stage renal disease, on hemodialysis.thru LUE fistula, w/u for steal phenomenon Diabetes mellitus, uncontrolled. History of breast abscess with MSSA, Klebsiella and E. coli 04/2018. PPM in place. Plan Plan of Care Post op wounds are open so will cont cefepime and vanco renal dosing for dialysis local wound care with vac f/u labs D/w family and nursing TAISHA GONZALEZ MD Jan 09, 2019 09:44
[2019-01-09 10:53] VITALS: BP 120/52
--- NOTE | 2019-01-09 11:00 | PDOC ---
Dialysis Progress Note Dialysis Note Dialysis Note Seen on Hemodialysis, tolerating treatment OK for now Vitals on Hemodialysis: afeb 116/64 82 General Appearance: Asleep on HD Neck: No JVD or JVP Chest: CTA [place] Heart: S1 S2 Abdomen - Soft NTND Extremities - No Edema ESRD: Dialysis as below F 180 NR 3.5 Hrs 3 K 2.5 Ca 140 Na 30 HC03 Qb 350 + Qd 500+ Heparin 0 Units Uf 1 Kgs or to dry weight as tolerated May give 25-50 gms of 25% Albumin if needed to maintain Hemodynamic stability Treatment plan reviewed and discussed with cap maker Vitals Vital Signs Vital Signs Date Time Temp Pulse Resp B/P (MAP) Pulse Ox O2 Delivery O2 Flow Rate FiO2 01/09/19 10:53 97.8 80 17 120/52 (74) 98 Nasal Cannula 2.0 97.8 Labs Last Labs Laboratory Tests Test 01/07/19 16:51 01/07/19 20:24 01/07/19 22:41 01/08/19 07:18 Glucose (Fingerstick) 182 mg/dL (70-99) 197 mg/dL (70-99) 182 mg/dL (70-99) 188 mg/dL (70-99) Test 01/08/19 11:41 01/08/19 16:37 01/08/19 20:30 01/09/19 04:05 Glucose (Fingerstick) 182 mg/dL (70-99) 172 mg/dL (70-99) 162 mg/dL (70-99) White Blood Count 11.1 x10^3/uL (4.0-11.0) Red Blood Count 2.87 x10^6/uL (3.50-5.40) Hemoglobin 9.1 g/dL (12.0-15.5) Hematocrit 30.0 % (36.0-47.0) Mean Corpuscular Volume 105 fL (79-100) Mean Corpuscular Hemoglobin 32 pg (25-35) Mean Corpuscular Hemoglobin Concent 30 g/dL (31-37) Red Cell Distribution Width 15.1 % (11.5-14.5) Platelet Count 261 x10^3/uL (140-400) Neutrophils (%) (Auto) 76 % (31-73) Lymphocytes (%) (Auto) 11 % (24-48) Monocytes (%) (Auto) 9 % (0-9) Eosinophils (%) (Auto) 3 % (0-3) Basophils (%) (Auto) 1 % (0-3) Neutrophils # (Auto) 8.5 x10^3/uL (1.8-7.7) Lymphocytes # (Auto) 1.3 x10^3/uL (1.0-4.8) Monocytes # (Auto) 0.9 x10^3/uL (0.0-1.1) Eosinophils # (Auto) 0.3 x10^3/uL (0.0-0.7) Basophils # (Auto) 0.1 x10^3/uL (0.0-0.2) Segmented Neutrophils % 82 % (35-66) Lymphocytes % 11 % (24-48) Monocytes % 6 % (0-10) Eosinophils % 1 % (0-5) Platelet Estimate Adequate (ADEQUATE) Polychromasia Slight Basophilic Stippling Present Anisocytosis Slight Test 01/09/19 04:15 01/09/19 07:25 Sodium Level 139 mmol/L (136-145) Potassium Level 4.4 mmol/L (3.5-5.1) Chloride Level 100 mmol/L (98-107) Carbon Dioxide Level 31 mmol/L (21-32) Anion Gap 8 (6-14) Blood Urea Nitrogen 35 mg/dL (7-20) Creatinine 7.0 mg/dL (0.6-1.0) Estimated GFR (Cockcroft-Gault) 7.0 Glucose Level 195 mg/dL (70-99) Calcium Level 9.1 mg/dL (8.5-10.1) Glucose (Fingerstick) 186 mg/dL (70-99) Laboratory Tests Test 01/08/19 11:41 01/08/19 16:37 01/08/19 20:30 01/09/19 04:05 Glucose (Fingerstick) 182 mg/dL (70-99) 172 mg/dL (70-99) 162 mg/dL (70-99) White Blood Count 11.1 x10^3/uL (4.0-11.0) Red Blood Count 2.87 x10^6/uL (3.50-5.40) Hemoglobin 9.1 g/dL (12.0-15.5) Hematocrit 30.0 % (36.0-47.0) Mean Corpuscular Volume 105 fL (79-100) Mean Corpuscular Hemoglobin 32 pg (25-35) Mean Corpuscular Hemoglobin Concent 30 g/dL (31-37) Red Cell Distribution Width 15.1 % (11.5-14.5) Platelet Count 261 x10^3/uL (140-400) Neutrophils (%) (Auto) 76 % (31-73) Lymphocytes (%) (Auto) 11 % (24-48) Monocytes (%) (Auto) 9 % (0-9) Eosinophils (%) (Auto) 3 % (0-3) Basophils (%) (Auto) 1 % (0-3) Neutrophils # (Auto) 8.5 x10^3/uL (1.8-7.7) Lymphocytes # (Auto) 1.3 x10^3/uL (1.0-4.8) Monocytes # (Auto) 0.9 x10^3/uL (0.0-1.1) Eosinophils # (Auto) 0.3 x10^3/uL (0.0-0.7) Basophils # (Auto) 0.1 x10^3/uL (0.0-0.2) Segmented Neutrophils % 82 % (35-66) Lymphocytes % 11 % (24-48) Monocytes % 6 % (0-10) Eosinophils % 1 % (0-5) Platelet Estimate Adequate (ADEQUATE) Polychromasia Slight Basophilic Stippling Present Anisocytosis Slight Test 01/09/19 04:15 01/09/19 07:25 Sodium Level 139 mmol/L (136-145) Potassium Level 4.4 mmol/L (3.5-5.1) Chloride Level 100 mmol/L (98-107) Carbon Dioxide Level 31 mmol/L (21-32) Anion Gap 8 (6-14) Blood Urea Nitrogen 35 mg/dL (7-20) Creatinine 7.0 mg/dL (0.6-1.0) Estimated GFR (Cockcroft-Gault) 7.0 Glucose Level 195 mg/dL (70-99) Calcium Level 9.1 mg/dL (8.5-10.1) Glucose (Fingerstick) 186 mg/dL (70-99) KWASI GONZALEZ MD Jan 09, 2019 10:59
[2019-01-09] MEDS: FERROUS SULFATE 325 MG TABLET. PO SCH ×3 (12:00→16:41)
--- NOTE | 2019-01-09 13:38 | PDOC ---
PROGRESS NOTES Subjective Subjective "My thumb hurts if I try to move it or if you touch it. I will need pain medication before you change the dressing." Objective Objective Vascular Surgery - POD#6 Left arm radiocephalic fistula ligation, left 1st finger tip amputation and debridement of the thumb, left 3rd finger debridement General: Patient seen and examined while on hemodialysis. director of marketing communications present at bedside. Patient was awaken from sleep. Does complain of pain when I manipulate her left hand in any way. Vital signs: stable. afebrile. CV: RRR Pulm: unlabored. LUE: incision is dry and intact with surgical glue visible. Wound VAC dressing intact to left thumb periwound with adequate seal. Biphasic doppled signal in radial and ulnar artery. Wound vac dressing will not be removed at this time while on dialysis. Patient has requested to be premedicated prior to dressing change. I did speak with wound care staff and they plan to do dressing change this afternoon. They will let me know if any concerns with wound base/healing. Weak use of left hand and thumb, nearly no movement. 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 1. POD#6 Ligation of the left radial artery to cephalic vein fistula; Left thumb distal tip amputation removing the distal phalanx bone with sharp excisional debridement of the thumb down to the base, removing necrotic skin and subcutaneous tissue; Left third finger sharp excisional debridement of necrotic skin and subcutaneous tissue measuring approximately 1 cm in length x 0.5 cm in width x 0.5 cm in depth. 2. Continue wound VAC therapy with dressing changes 3x weekly. airfield services officer will need to help coordinate upon discharge as to whether this can be done in the home or if patient will need to go to [facility]. 3. Continue PT/OT excercises to left hand for weakness and to avoid non- functional joint. Patient verbalizes understanding, although stays it hurts too much. 4. No immediate plans for access placement. Recommend continued dialysis via catheter. 5. ID will coordinate IV antibiotic plan with dialysis days as Dr. Silver reports exposed bone in base of wound. I have discussed this with Dr. Juan Villar. 6. Patient will return to see Dr. Silver on 01/26/2019 at 11:20 a.m. for wound evaluation. If healthy tissue and granulation present, will discuss and plan for skin graft. Vital Signs Date Time Temp Pulse Resp B/P (MAP) Pulse Ox O2 Delivery O2 Flow Rate FiO2 01/09/19 10:53 97.8 80 17 120/52 (74) 98 Nasal Cannula 2.0 97.8 Intake and Output 01/09/19 07:00 Intake Total 800 ml Output Total 0 ml Balance 800 ml Intake Oral 800 ml Output Urine Total 0 ml Comment Review of Relevant I have reviewed the following items filippo (where applicable) has been applied. Labs Laboratory Tests Test 01/07/19 16:51 01/07/19 20:24 01/07/19 22:41 01/08/19 07:18 Glucose (Fingerstick) 182 mg/dL (70-99) 197 mg/dL (70-99) 182 mg/dL (70-99) 188 mg/dL (70-99) Test 01/08/19 11:41 01/08/19 16:37 01/08/19 20:30 01/09/19 04:05 Glucose (Fingerstick) 182 mg/dL (70-99) 172 mg/dL (70-99) 162 mg/dL (70-99) White Blood Count 11.1 x10^3/uL (4.0-11.0) Red Blood Count 2.87 x10^6/uL (3.50-5.40) Hemoglobin 9.1 g/dL (12.0-15.5) Hematocrit 30.0 % (36.0-47.0) Mean Corpuscular Volume 105 fL (79-100) Mean Corpuscular Hemoglobin 32 pg (25-35) Mean Corpuscular Hemoglobin Concent 30 g/dL (31-37) Red Cell Distribution Width 15.1 % (11.5-14.5) Platelet Count 261 x10^3/uL (140-400) Neutrophils (%) (Auto) 76 % (31-73) Lymphocytes (%) (Auto) 11 % (24-48) Monocytes (%) (Auto) 9 % (0-9) Eosinophils (%) (Auto) 3 % (0-3) Basophils (%) (Auto) 1 % (0-3) Neutrophils # (Auto) 8.5 x10^3/uL (1.8-7.7) Lymphocytes # (Auto) 1.3 x10^3/uL (1.0-4.8) Monocytes # (Auto) 0.9 x10^3/uL (0.0-1.1) Eosinophils # (Auto) 0.3 x10^3/uL (0.0-0.7) Basophils # (Auto) 0.1 x10^3/uL (0.0-0.2) Segmented Neutrophils % 82 % (35-66) Lymphocytes % 11 % (24-48) Monocytes % 6 % (0-10) Eosinophils % 1 % (0-5) Platelet Estimate Adequate (ADEQUATE) Polychromasia Slight Basophilic Stippling Present Anisocytosis Slight Test 01/09/19 04:15 01/09/19 07:25 Sodium Level 139 mmol/L (136-145) Potassium Level 4.4 mmol/L (3.5-5.1) Chloride Level 100 mmol/L (98-107) Carbon Dioxide Level 31 mmol/L (21-32) Anion Gap 8 (6-14) Blood Urea Nitrogen 35 mg/dL (7-20) Creatinine 7.0 mg/dL (0.6-1.0) Estimated GFR (Cockcroft-Gault) 7.0 Glucose Level 195 mg/dL (70-99) Calcium Level 9.1 mg/dL (8.5-10.1) Glucose (Fingerstick) 186 mg/dL (70-99) Laboratory Tests Test 01/08/19 16:37 01/08/19 20:30 01/09/19 04:05 01/09/19 04:15 Glucose (Fingerstick) 172 mg/dL (70-99) 162 mg/dL (70-99) White Blood Count 11.1 x10^3/uL (4.0-11.0) Red Blood Count 2.87 x10^6/uL (3.50-5.40) Hemoglobin 9.1 g/dL (12.0-15.5) Hematocrit 30.0 % (36.0-47.0) Mean Corpuscular Volume 105 fL (79-100) Mean Corpuscular Hemoglobin 32 pg (25-35) Mean Corpuscular Hemoglobin Concent 30 g/dL (31-37) Red Cell Distribution Width 15.1 % (11.5-14.5) Platelet Count 261 x10^3/uL (140-400) Neutrophils (%) (Auto) 76 % (31-73) Lymphocytes (%) (Auto) 11 % (24-48) Monocytes (%) (Auto) 9 % (0-9) Eosinophils (%) (Auto) 3 % (0-3) Basophils (%) (Auto) 1 % (0-3) Neutrophils # (Auto) 8.5 x10^3/uL (1.8-7.7) Lymphocytes # (Auto) 1.3 x10^3/uL (1.0-4.8) Monocytes # (Auto) 0.9 x10^3/uL (0.0-1.1) Eosinophils # (Auto) 0.3 x10^3/uL (0.0-0.7) Basophils # (Auto) 0.1 x10^3/uL (0.0-0.2) Segmented Neutrophils % 82 % (35-66) Lymphocytes % 11 % (24-48) Monocytes % 6 % (0-10) Eosinophils % 1 % (0-5) Platelet Estimate Adequate (ADEQUATE) Polychromasia Slight Basophilic Stippling Present Anisocytosis Slight Sodium Level 139 mmol/L (136-145) Potassium Level 4.4 mmol/L (3.5-5.1) Chloride Level 100 mmol/L (98-107) Carbon Dioxide Level 31 mmol/L (21-32) Anion Gap 8 (6-14) Blood Urea Nitrogen 35 mg/dL (7-20) Creatinine 7.0 mg/dL (0.6-1.0) Estimated GFR (Cockcroft-Gault) 7.0 Glucose Level 195 mg/dL (70-99) Calcium Level 9.1 mg/dL (8.5-10.1) Test 01/09/19 07:25 Glucose (Fingerstick) 186 mg/dL (70-99) Microbiology 12/27/18 Aerobic Culture - Final, Complete 12/27/18 Aerobic Culture Result 1 (MANPREET) - Final, Complete 12/27/18 Aerobic Culture Result 2 (MANPREET) - Final, Complete 12/27/18 Antimicrobic Susceptibility - Final, Complete 12/27/18 Gram Stain - Final, Complete 12/27/18 Gram Stain Result 1 (MANPREET) - Final, Complete 12/27/18 Gram Stain Result 2 (MANPREET) - Final, Complete 12/27/18 Gram Stain Result 3 (MANPREET) - Final, Complete Medications Current Medications Ondansetron HCl (Zofran) 4 mg PRN Q6HRS PRN IV NAUSEA/VOMITING Last administered on 01/05/19at 16:25; Start 12/27/18 at 16:30 Calcium Carbonate/ Glycine (Tums) 500 mg PRN Q3HRS PRN PO UPSET STOMACH; Start 12/27/18 at 16:30 Zolpidem Tartrate (Ambien) 5 mg PRN QHS PRN PO INSOMNIA, MAY REPEAT IN 1HR; Start 12/27/18 at 16:30 Oxycodone HCl (Roxicodone) 5 mg PRN Q3HRS PRN PO BREAKTHROUGH PAIN Last administered on 01/09/19at 06:31; Start 12/27/18 at 16:30 Morphine Sulfate (Morphine Sulfate) 1 mg PRN Q1HR PRN IV PAIN; Start 12/27/18 at 16:30; Stop 12/27/18 at 16:39; Status DC Acetaminophen (Tylenol) 650 mg PRN Q6HRS PRN PO Headaches, Temp > 101.5F; Start 12/27/18 at 16:30 Docusate Sodium (Colace) 100 mg BID PO Last administered on 01/08/19at 21:00; Start 12/27/18 at 21:00 Magnesium Hydroxide (Milk Of Magnesia) 2,400 mg PRN Q12HR PRN PO CONSTIPATION Last administered on 01/05/19at 08:57; Start 12/27/18 at 16:30 Bisacodyl (Dulcolax Supp) 10 mg PRN DAILY PRN MO CONSTIPATION Last administered on 01/07/19at 04:12; Start 12/27/18 at 16:30 Ondansetron HCl (Zofran) 4 mg PRN Q6HRS PRN IVP NAUSEA/VOMITING; Start 12/27/18 at 16:30; Stop 12/28/18 at 11:31; Status DC Clonidine HCl (Catapres) 0.1 mg PRN Q1HR PRN PO HYPERTENSION; Start 12/27/18 at 16:30 Aspirin (Children'S Aspirin) 81 mg DAILY PO Last administered on 01/08/19at 08:11; Start 12/28/18 at 09:00 Atorvastatin Calcium (Lipitor) 20 mg HS PO Last administered on 01/08/19at 21:00; Start 12/27/18 at 21:00 Carvedilol (Coreg) 6.25 mg BIDWMEALS PO Last administered on 12/29/18at 17:39; Start 12/27/18 at 17:00; Stop 12/30/18 at 09:02; Status DC Diclofenac Sodium (Voltaren) 100 charan PRN QID PRN TP PAIN; Start 12/27/18 at 16:30; Stop 01/06/19 at 12:11; Status DC Ferrous Sulfate (Feosol) 325 mg TIDWMEALS PO Last administered on 01/08/19 17:13; Start 12/27/18 at 17:00 Acetaminophen/ Hydrocodone Bitart (Lortab 10/325) 1 tab PRN Q6HRS PRN PO MODERATE PAIN Last administered on 01/08/19 11:49; Start 12/27/18 at 16:30 Levothyroxine Sodium (Synthroid) 150 mcg DAILYAC PO Last administered on 01/09/19 06:31; Start 12/28/18 at 07:30 Losartan Potassium (Cozaar) 25 mg DAILY PO ; Start 12/28/18 at 09:00; Stop 12/31/18 at 09:09; Status DC Non-Formulary Medication (Albuterol Sulfate (Ventolin Hfa Inhaler)) 2 puff QID INH ; Start 12/27/18 at 17:00; Status UNV Non-Formulary Medication (Fluticasone/ Vilanterol (Breo Ellipta 100-25 Mcg Inh)) 1 puff DAILY PRN IH daily; Start 12/27/18 at 16:30; Status UNV Insulin Human Lispro (HumaLOG) 10 units TIDWMEALS SQ Last administered on 12/30/18at 20:05; Start 12/27/18 at 17:30; Stop 12/31/18 at 07:32; Status DC Pantoprazole Sodium (Protonix) 40 mg DAILYAC PO Last administered on 01/09/19 06:31; Start 12/28/18 at 07:30 Albuterol Sulfate (Ventolin Neb Soln) 2.5 mg RTQID NEB Last administered on 01/09/19at 07:10; Start 12/27/18 at 20:00 Budesonide (Pulmicort) 0.5 mg RTBID NEB Last administered on 01/09/19at 07:10; Start 12/27/18 at 20:00 Morphine Sulfate (Morphine Sulfate) 2 mg PRN Q2HR PRN IV MODERATE PAIN Last ad ministered on 01/04/19at 13:26; Start 12/27/18 at 16:45 Cefepime HCl (Maxipime) 1 gm Q24H IVP Last administered on 01/08/19at 21:00; Start 12/27/18 at 18:00 Vancomycin HCl (Vanco Per Pharmacy) 1 each PRN DAILY PRN MC SEE COMMENTS Last administered on 01/08/19at 14:55; Start 12/27/18 at 17:15 Vancomycin HCl 1.5 gm/Sodium Chloride 500 ml @ 250 mls/hr 1X ONCE IV Last administered on 12/27/18at 18:02; Start 12/27/18 at 17:30; Stop 12/27/18 at 19:29; Status DC Vancomycin HCl (Vancomycin Random Level) 1 each 1X ONCE MC Last administered on 12/28/18at 06:00; Start 12/28/18 at 06:00; Stop 12/28/18 at 06:01; Status DC Sodium Polystyrene Sulfonate (Kayexalate) 15 gm 1X ONCE PO Last administered on 12/28/18at 05:57; Start 12/28/18 at 05:45; Stop 12/28/18 at 05:46; Status DC Sodium Chloride 1,000 ml @ 1,000 mls/hr Q1H PRN IV hypotension; Start 12/28/18 at 08:10; Stop 12/28/18 at 14:09; Status DC Albumin Human 200 ml @ 200 mls/hr 1X PRN PRN IV Hypotension; Start 12/28/18 at 08:15; Stop 12/28/18 at 14:14; Status DC Acetaminophen (Tylenol) 500 mg 1X PRN PRN PO MILD PAIN / TEMP; Start 12/28/18 at 08:15; Stop 12/29/18 at 08:14; Status DC Diphenhydramine HCl (Benadryl) 25 mg 1X PRN PRN IV ITCHING; Start 12/28/18 at 08:15; Stop 12/29/18 at 08:14; Status DC Diphenhydramine HCl (Benadryl) 25 mg 1X PRN PRN IV ITCHING; Start 12/28/18 at 08:15; Stop 12/29/18 at 08:14; Status DC Sodium Chloride 1,000 ml @ 400 mls/hr Q2H30M PRN IV PATENCY; Start 12/28/18 at 08:10; Stop 12/28/18 at 20:09; Status DC Info (PHARMACY MONITORING -- do not chart) 1 each PRN DAILY PRN MC SEE COMMENTS; Start 12/28/18 at 08:15; Stop 12/30/18 at 13:48; Status DC Vancomycin HCl 500 mg/Sodium Chloride 100 ml @ 100 mls/hr QMWF IV Last administered on 01/06/19at 16:23; Start 12/30/18 at 16:00 Lactobacillus Rhamnosus (Culturelle) 1 cap BID PO Last administered on 01/08/19at 21:00; Start 12/28/18 at 21:00 Iodixanol (Visipaque 320) 100 ml STK-MED ONCE .ROUTE ; Start 12/29/18 at 09:27; Stop 12/29/18 at 09:27; Status DC Lidocaine HCl (Buffered Lidocaine 1%) 3 ml STK-MED ONCE .ROUTE ; Start 12/29/18 at 09:27; Stop 12/29/18 at 09:27; Status DC Heparin Sodium/ Sodium Chloride 500 ml @ As Directed STK-MED ONCE .ROUTE ; Start 12/29/18 at 09:27; Stop 12/29/18 at 09:27; Status DC Midazolam HCl (Versed) 2 mg STK-MED ONCE .ROUTE ; Start 12/29/18 at 09:29; Stop 12/29/18 at 09:29; Status DC Fentanyl Citrate (Fentanyl 2ml Vial) 100 mcg STK-MED ONCE .ROUTE ; Start 12/29/18 at 09:29; Stop 12/29/18 at 09:29; Status DC Heparin Sodium (Porcine) (Heparin Sodium) 10,000 unit STK-MED ONCE .ROUTE ; Start 12/29/18 at 09:29; Stop 12/29/18 at 09:30; Status DC Heparin Sodium/ Sodium Chloride (HEPARIN for ARTERIAL LINE FLUSH) 1,000 unit 1X ONCE IART Last administered on 12/29/18at 10:00; Start 12/29/18 at 10:00; Stop 12/29/18 at 10:01; Status DC Lidocaine HCl (Buffered Lidocaine 1%) 3 ml 1X ONCE IJ Last administered on 12/29/18at 10:00; Start 12/29/18 at 10:00; Stop 12/29/18 at 10:01; Status DC Midazolam HCl (Versed) 2 mg 1X ONCE IV Last administered on 12/29/18at 10:00; Start 12/29/18 at 10:00; Stop 12/29/18 at 10:01; Status DC Fentanyl Citrate (Fentanyl 2ml Vial) 100 mcg 1X ONCE IV Last administered on 12/29/18at 10:00; Start 12/29/18 at 10:00; Stop 12/29/18 at 10:01; Status DC Iodixanol (Visipaque 320) 100 ml 1X ONCE IART Last administered on 12/29/18at 10:00; Start 12/29/18 at 10:00; Stop 12/29/18 at 10:01; Status DC Heparin Sodium (Porcine) (Heparin Sodium) 3,000 unit 1X ONCE IV Last administered on 12/29/18at 10:30; Start 12/29/18 at 10:30; Stop 12/29/18 at 10:32; Status DC Iodixanol (Visipaque 320) 50 ml STK-MED ONCE .ROUTE ; Start 12/29/18 at 10:43; Stop 12/29/18 at 10:43; Status DC Iodixanol (Visipaque 320) 50 ml 1X ONCE IART Last administered on 12/29/18at 10:45; Start 12/29/18 at 10:45; Stop 12/29/18 at 10:46; Status DC Info (CONTRAST GIVEN -- Rx MONITORING) 1 each PRN DAILY PRN MC SEE COMMENTS; Start 12/29/18 at 11:00; Stop 12/31/18 at 10:59; Status DC Carvedilol (Coreg) 3.125 mg BIDWMEALS PO Last administered on 01/08/19at 08:11; Start 12/30/18 at 09:00 Insulin Glargine (Lantus Syringe) 20 unit QHS SQ Last administered on 12/30/18at 21:00; Start 12/30/18 at 21:00; Stop 12/31/18 at 07:32; Status DC Insulin Glargine (Lantus Syringe) 10 unit ONCE ONCE SQ Last administered on 12/30/18at 09:48; Start 12/30/18 at 10:00; Stop 12/30/18 at 10:01; Status DC Sodium Chloride 1,000 ml @ 1,000 mls/hr Q1H PRN IV hypotension; Start 12/30/18 at 12:21; Stop 12/30/18 at 18:20; Status DC Diphenhydramine HCl (Benadryl) 25 mg 1X PRN PRN IV ITCHING; Start 12/30/18 at 12:30; Stop 12/31/18 at 12:29; Status DC Diphenhydramine HCl (Benadryl) 25 mg 1X PRN PRN IV ITCHING; Start 12/30/18 at 12:30; Stop 12/31/18 at 12:29; Status DC Sodium Chloride 1,000 ml @ 400 mls/hr Q2H30M PRN IV PATENCY; Start 12/30/18 at 12:21; Stop 12/31/18 at 00:20; Status DC Info (PHARMACY MONITORING -- do not chart) 1 each PRN DAILY PRN MC SEE COMMENTS; Start 12/30/18 at 12:30; Stop 01/04/19 at 14:19; Status DC Insulin Human Lispro (HumaLOG) 15 units 1X ONCE SQ Last administered on 12/30/18at 22:59; Start 12/30/18 at 23:00; Stop 12/30/18 at 23:01; Status DC Insulin Glargine (Lantus Syringe) 30 unit QHS SQ Last administered on 01/08/19at 21:08; Start 12/31/18 at 21:00 Insulin Human Lispro (HumaLOG) 15 units TIDWMEALS SQ Last administered on 01/01/19at 08:22; Start 12/31/18 at 08:00; Stop 01/01/19 at 08:35; Status DC Insulin Human Lispro (HumaLOG) 8 units TIDWMEALS SQ Last administered on 01/01/19at 16:52; Start 01/01/19 at 12:00; Stop 01/02/19 at 07:40; Status DC Insulin Human Lispro (HumaLOG) 12 units 1X ONCE SQ Last administered on 01/01/19at 21:14; Start 01/01/19 at 21:00; Stop 01/01/19 at 21:01; Status DC Losartan Potassium (Cozaar) 25 mg DAILY PO Last administered on 01/08/19at 08:11; Start 01/02/19 at 09:00 Insulin Human Lispro (HumaLOG) 10 units TIDWMEALS SQ Last administered on 01/09/19at 09:22; Start 01/02/19 at 07:45 Sodium Chloride 1,000 ml @ 1,000 mls/hr Q1H PRN IV hypotension; Start 01/02/19 at 08:18; Stop 01/02/19 at 14:17; Status DC Acetaminophen (Tylenol) 500 mg 1X PRN PRN PO MILD PAIN / TEMP; Start 01/02/19 at 08:30; Stop 01/03/19 at 08:29; Status DC Diphenhydramine HCl (Benadryl) 25 mg 1X PRN PRN IV ITCHING; Start 01/02/19 at 08:30; Stop 01/03/19 at 08:29; Status DC Diphenhydramine HCl (Benadryl) 25 mg 1X PRN PRN IV ITCHING; Start 01/02/19 at 08:30; Stop 01/03/19 at 08:29; Status DC Sodium Chloride 1,000 ml @ 400 mls/hr Q2H30M PRN IV PATENCY; Start 01/02/19 at 08:18; Stop 01/02/19 at 20:17; Status DC Info (PHARMACY MONITORING -- do not chart) 1 each PRN DAILY PRN MC SEE COMMENTS; Start 01/02/19 at 08:30; Status UNV Vancomycin HCl (Vancomycin Random Level) 1 each 1X ONCE MC Last administered on 01/04/19at 07:30; Start 01/04/19 at 06:00; Stop 01/04/19 at 06:01; Status DC Iodixanol (Visipaque 320) 100 ml STK-MED ONCE .ROUTE ; Start 01/02/19 at 13:20; Stop 01/02/19 at 13:20; Status DC Lidocaine HCl (Buffered Lidocaine 1%) 3 ml STK-MED ONCE .ROUTE ; Start 01/02/19 at 13:20; Stop 01/02/19 at 13:21; Status DC Heparin Sodium/ Sodium Chloride 1,000 ml @ As Directed STK-MED ONCE .ROUTE ; Start 01/02/19 at 13:21; Stop 01/02/19 at 13:21; Status DC Midazolam HCl (Versed) 2 mg STK-MED ONCE .ROUTE ; Start 01/02/19 at 13:52; Stop 01/02/19 at 13:53; Status DC Fentanyl Citrate (Fentanyl 2ml Vial) 100 mcg STK-MED ONCE .ROUTE ; Start at 13:52; Stop 01/02/19 at 13:53; Status DC Iodixanol (Visipaque 320) 100 ml STK-MED ONCE .ROUTE ; Start 01/02/19 at 14:22; Stop 01/02/19 at 14:22; Status DC Heparin Sodium/ Sodium Chloride (HEPARIN for ARTERIAL LINE FLUSH) 1,000 unit 1X ONCE IART Last administered on 01/02/19at 14:51; Start 01/02/19 at 14:45; Stop 01/02/19 at 15:04; Status DC Heparin Sodium/ Sodium Chloride (HEPARIN for ARTERIAL LINE FLUSH) 1,000 unit 1X ONCE IART Last administered on 01/02/19at 14:45; Start 01/02/19 at 14:45; Stop 01/02/19 at 15:04; Status DC Lidocaine HCl (Buffered Lidocaine 1%) 2 ml 1X ONCE IJ Last administered on 01/02/19at 14:52; Start 01/02/19 at 14:45; Stop 01/02/19 at 15:04; Status DC Midazolam HCl (Versed) 1 mg 1X ONCE IV Last administered on 01/02/19at 14:52; Start 01/02/19 at 14:45; Stop 01/02/19 at 15:04; Status DC Fentanyl Citrate (Fentanyl 2ml Vial) 25 mcg 1X ONCE IV Last administered on 01/02/19at 14:53; Start 01/02/19 at 14:45; Stop 01/02/19 at 15:04; Status DC Iodixanol (Visipaque 320) 100 ml 1X ONCE IART Last administered on 01/02/19at 14:52; Start 01/02/19 at 14:45; Stop 01/02/19 at 15:04; Status DC Ondansetron HCl (Zofran) 4 mg PRN Q6HRS PRN IV NAUSEA/VOMITING; Start 01/03/19 at 11:00; Stop 01/04/19 at 10:59; Status DC Morphine Sulfate (Morphine Sulfate) 1 mg PRN Q10MIN PRN IV SEVERE PAIN 7-10; Start 01/03/19 at 11:00; Stop 01/04/19 at 10:59; Status DC Ringer's Solution 1,000 ml @ 30 mls/hr Q24H IV ; Start 01/03/19 at 10:49; Stop 01/03/19 at 22:48; Status DC Lidocaine HCl (Xylocaine-Mpf 1% 2ml Vial) 2 ml PRN 1X PRN ID PRIOR TO IV START; Start 01/03/19 at 11:00; Stop 01/04/19 at 10:59; Status DC Hydromorphone HCl (Dilaudid) 0.5 mg PRN Q10MIN PRN IV SEV PAIN, Second choice Last administered on 01/03/19at 19:10; Start 01/03/19 at 11:00; Stop 01/04/19 at 10:59; Status DC Prochlorperazine Edisylate (Compazine) 5 mg PACU PRN PRN IV NAUSEA, MRX1 Last administered on 01/03/19at 18:30; Start 01/03/19 at 11:00; Stop 01/04/19 at 10:59; Status DC Insulin Human Lispro (HumaLOG VIAL for OP,RR ONLY) 0-10 units PRN Q1HR PRN SQ PER PROTOCOL Last administered on 01/03/19at 19:14; Start 01/03/19 at 15:15; Stop 01/04/19 at 15:14; Status DC Cefazolin Sodium 1 gm/Dextrose 50 ml @ 100 mls/hr 1X PREOP ONCE IV ; Start 01/03/19 at 15:45; Stop 01/03/19 at 16:14; Status UNV Cefazolin Sodium 50 ml @ 100 mls/hr 1X ONCE IV ; Start 01/03/19 at 16:00; Stop 01/03/19 at 16:29; Status DC Heparin Sodium (Porcine) 5000 unit/Sodium Chloride 505 ml @ 505 mls/hr 1X ONCE IRR ; Start 01/03/19 at 16:17; Stop 01/03/19 at 17:16; Status DC Lidocaine HCl 20 ml STK-MED ONCE .ROUTE ; Start 01/03/19 at 16:17; Stop 01/03/19 at 16:17; Status DC Cellulose (Surgicel Fibrillar 1x2) 1 each STK-MED ONCE .ROUTE ; Start 01/03/19 at 16:17; Stop 01/03/19 at 16:17; Status DC Cefazolin Sodium 1 gm/Sodium Chloride 500 ml @ 500 mls/hr 1X ONCE IRR Last administered on 01/03/19at 17:05; Start 01/03/19 at 16:18; Stop 01/03/19 at 17:17; Status DC Lidocaine HCl 20 ml STK-MED ONCE .ROUTE ; Start 01/03/19 at 16:17; Stop 01/03/19 at 16:18; Status Cancel Morphine Sulfate (Morphine Sulfate) 2 mg STK-MED ONCE .ROUTE ; Start 01/03/19 at 18:04; Stop 01/03/19 at 18:05; Status DC Ondansetron HCl (Zofran) 4 mg STK-MED ONCE .ROUTE ; Start 01/03/19 at 18:07; Stop 01/03/19 at 18:07; Status DC Propofol 20 ml @ As Directed STK-MED ONCE IV ; Start 01/03/19 at 18:07; Stop 01/03/19 at 18:07; Status DC Lidocaine HCl (Lidocaine Pf 2% Vial) 5 ml STK-MED ONCE .ROUTE ; Start 01/03/19 at 18:07; Stop 01/03/19 at 18:07; Status DC Phenylephrine HCl (PHENYLEPHRINE in 0.9% NACL PF) 1 mg STK-MED ONCE IV ; Start 01/03/19 at 18:07; Stop 01/03/19 at 18:07; Status DC Dexamethasone Sodium Phosphate (Decadron) 4 mg STK-MED ONCE .ROUTE ; Start 01/03/19 at 18:07; Stop 01/03/19 at 18:07; Status DC Ephedrine Sulfate (ePHEDrine PF IN SALINE SYRINGE) 50 mg STK-MED ONCE IV ; Start 01/03/19 at 18:07; Stop 01/03/19 at 18:07; Status DC Sevoflurane (Ultane) 60 ml STK-MED ONCE IH ; Start 01/03/19 at 18:07; Stop 01/03/19 at 18:07; Status DC Hydromorphone HCl (Dilaudid) 2 mg STK-MED ONCE .ROUTE ; Start 01/03/19 at 18:11; Stop 01/03/19 at 18:11; Status DC Prochlorperazine Edisylate (Compazine) 10 mg STK-MED ONCE .ROUTE ; Start 01/03/19 at 18:18; Stop 01/03/19 at 18:18; Status DC Cefazolin Sodium (Ancef 1gm Ivpb For Omni) 1 gm STK-MED ONCE IV ; Start 01/03/19 at 16:00; Stop 01/04/19 at 08:42; Status DC Lidocaine/ Epinephrine (LIDOCAINE 1%-EPI 1:100,000 Multi-Dose) 20 ml STK-MED ONCE .ROUTE ; Start 01/04/19 at 10:53; Stop 01/04/19 at 10:53; Status DC Midazolam HCl (Versed) 2 mg 1X ONCE IV Last administered on 01/04/19at 12:27; Start 01/04/19 at 12:00; Stop 01/04/19 at 12:04; Status DC Fentanyl Citrate (Fentanyl 2ml Vial) 100 mcg 1X ONCE IV Last administered on 01/04/19at 12:27; Start 01/04/19 at 12:00; Stop 01/04/19 at 12:05; Status DC Lidocaine/ Epinephrine (LIDOCAINE 1%-EPI 1:100,000 Multi-Dose) 20 ml 1X ONCE SQ Last administered on 01/04/19at 12:28; Start 01/04/19 at 12:00; Stop 01/04/19 at 12:04; Status DC Cefazolin Sodium 50 ml @ 100 mls/hr 1X ONCE IV ; Start 01/04/19 at 12:00; Stop 01/04/19 at 12:29; Status Cancel Cefazolin Sodium 0 ml @ As Directed STK-MED ONCE IV ; Start 01/04/19 at 12:04; Stop 01/04/19 at 12:05; Status DC Midazolam HCl (Versed) 2 mg STK-MED ONCE .ROUTE ; Start 01/04/19 at 12:05; Stop 01/04/19 at 12:05; Status DC Fentanyl Citrate (Fentanyl 2ml Vial) 100 mcg STK-MED ONCE .ROUTE ; Start 01/04/19 at 12:05; Stop 01/04/19 at 12:05; Status DC Hydromorphone HCl (Dilaudid) 1 mg PRN Q3HRS PRN IV SEVERE PAIN Last administered on 01/04/19at 14:28; Start 01/04/19 at 14:00 Sodium Chloride 1,000 ml @ 1,000 mls/hr Q1H PRN IV hypotension; Start 01/04/19 at 14:14; Stop 01/04/19 at 20:13; Status DC Diphenhydramine HCl (Benadryl) 25 mg 1X PRN PRN IV ITCHING; Start 01/04/19 at 14:15; Stop 01/05/19 at 14:14; Status DC Diphenhydramine HCl (Benadryl) 25 mg 1X PRN PRN IV ITCHING; Start 01/04/19 at 14:15; Stop 01/05/19 at 14:14; Status DC Sodium Chloride 1,000 ml @ 400 mls/hr Q2H30M PRN IV PATENCY; Start 01/04/19 at 14:14; Stop 01/05/19 at 02:13; Status DC Info (PHARMACY MONITORING -- do not chart) 1 each PRN DAILY PRN MC SEE COMMENTS; Start 01/04/19 at 14:15; Stop 01/06/19 at 12:08; Status DC Sodium Chloride 500 ml @ 500 mls/hr 1X ONCE IV ; Start 01/06/19 at 07:45; Stop 01/06/19 at 08:44; Status DC Sodium Chloride 1,000 ml @ 1,000 mls/hr Q1H PRN IV hypotension; Start 01/06/19 at 08:10; Stop 01/06/19 at 14:09; Status DC Acetaminophen (Tylenol) 500 mg 1X PRN PRN PO MILD PAIN / TEMP; Start 01/06/19 at 08:15; Stop 01/07/19 at 08:14; Status DC Diphenhydramine HCl (Benadryl) 25 mg 1X PRN PRN IV ITCHING; Start 01/06/19 at 08:15; Stop 01/07/19 at 08:14; Status DC Diphenhydramine HCl (Benadryl) 25 mg 1X PRN PRN IV ITCHING; Start 01/06/19 at 08:15; Stop 01/07/19 at 08:14; Status DC Sodium Chloride 1,000 ml @ 400 mls/hr Q2H30M PRN IV PATENCY; Start 01/06/19 at 08:10; Stop 01/06/19 at 20:09; Status DC Info (PHARMACY MONITORING -- do not chart) 1 each PRN DAILY PRN MC SEE COMMENTS; Start 01/06/19 at 08:15 Diclofenac Sodium (Voltaren) 1 charan PRN QID PRN TP JOINT PAIN; Start 01/06/19 at 12:15 Darbepoetin Abisai (ARANESP for DIALYSIS PTS) 60 mcg WEEKLYHS SQ Last administered on 01/06/19at 21:13; Start 01/06/19 at 21:00 Sodium Chloride 1,000 ml @ 1,000 mls/hr Q1H PRN IV hypotension; Start 01/09/19 at 08:05; Stop 01/09/19 at 14:04 Albumin Human 200 ml @ 200 mls/hr 1X PRN PRN IV Hypotension; Start 01/09/19 at 08:15; Stop 01/09/19 at 14:14 Sodium Chloride (Normal Saline Flush) 10 ml 1X PRN PRN IV AP catheter pack; Start 01/09/19 at 08:15; Stop 01/10/19 at 08:14 Sodium Chloride (Normal Saline Flush) 10 ml 1X PRN PRN IV EDUCATIONAL RESOURCE COORDINATOR catheter pack; Start 01/09/19 at 08:15; Stop 01/10/19 at 08:14 Sodium Chloride 1,000 ml @ 400 mls/hr Q2H30M PRN IV PATENCY; Start 01/09/19 at 08:05; Stop 01/09/19 at 20:04 Info (PHARMACY MONITORING -- do not chart) 1 each PRN DAILY PRN MC SEE COMMENTS; Start 01/09/19 at 08:15; Stop 01/09/19 at 08:12; Status DC Info (PHARMACY MONITORING -- do not chart) 1 each PRN DAILY PRN MC SEE COMMENTS; Start 01/09/19 at 08:15; Stop 01/09/19 at 08:12; Status DC Active Scripts Active Lantus (Insulin Glargine,Hum.rec.anlog) 100 Unit/1 Ml Vial 30 Unit SQ QHS 30 Days Carvedilol (Carvedilol) 3.125 Mg Tablet 3.125 Mg PO BIDWMEALS Evant 10-325 Tablet (Acetaminophen/Hydrocodone Bitart) 1 Each Tablet 1 Tab PO PRN Q6HRS PRN Reported Augmentin 875-125 Tablet (Amoxicillin/Potassium Clav) 1 Each Tablet 1 Tab PO BID Protonix (Pantoprazole Sodium) 20 Mg Tablet.dr 40 Mg PO DAILY Lipitor (Atorvastatin Calcium) 20 Mg Tablet 20 Mg PO HS Aspirin 81 Mg Tab.chew 1 Tab PO DAILY Losartan Potassium 50 Mg Tablet 25 Mg PO DAILY Tums (Calcium Carbonate) 200 Mg Tab.chew 2 Tab PO TIDAC Breo Ellipta 100-25 Mcg Inh (Fluticasone/Vilanterol) 1 Each Aer.pow.ba 1 Puff IH DAILY PRN Ventolin Hfa Inhaler (Albuterol Sulfate) 18 Gm Hfa.aer.ad 2 Puff INH QID Ferrous Sulfate 325 Mg Tablet 325 Mg PO TID Docusate Sodium 100 Mg Capsule 100 Mg PO BID Humulin R U-500 Kwikpen (Insulin Regular, Human) 500 Unit/1 Ml Insuln.pen 10 Unit SQ TIDAC U-500 Voltaren (Diclofenac Sodium) 100 Gm Gel..gram. 100 Gm TP PRN QID PRN Levothyroxine Sodium 150 Mcg Tablet 150 Mcg PO DAILYAC Vitals/I & O Vital Sign - Last 24 Hours 01/08/19 01/08/19 01/08/19 01/08/19 13:48 14:56 15:28 16:23 Temp 97.5 97.5 Pulse 78 Resp 18 B/P (MAP) 100/42 (61) Pulse Ox 94 98 100 O2 Delivery Room Air Nasal Cannula Nasal Cannula Nasal Cannula O2 Flow Rate 2.0 2.0 2.0 01/08/19 01/08/19 01/08/19 01/08/19 17:53 18:59 19:00 19:00 Temp 96.4 96.4 Pulse 81 Resp 18 B/P (MAP) 107/52 (70) Pulse Ox 97 O2 Delivery Nasal Cannula Nasal Cannula Nasal Cannula Nasal Cannula O2 Flow Rate 2.0 2.0 2.0 01/08/19 01/08/19 01/08/19 01/09/19 19:39 19:40 23:03 00:47 Temp 96.6 96.6 Pulse 78 Resp 20 B/P (MAP) 93/35 (54) Pulse Ox 96 96 97 100 O2 Delivery Nasal Cannula Nasal Cannula Nasal Cannula BiPAP/CPAP O2 Flow Rate 2.0 2.0 01/09/19 01/09/19 01/09/19 01/09/19 03:15 03:56 05:39 06:31 Temp 97.5 97.5 Pulse 78 Resp 20 19 B/P (MAP) 109/45 (66) Pulse Ox 91 100 100 O2 Delivery BiPAP/CPAP BiPAP/CPAP BiPAP/CPAP Nasal Cannula O2 Flow Rate 2.0 01/09/19 01/09/19 01/09/19 07:00 07:12 10:53 Temp 97.9 97.8 97.9 97.8 Pulse 82 80 Resp 17 17 B/P (MAP) 117/49 (71) 120/52 (74) Pulse Ox 100 90 98 O2 Delivery Nasal Cannula Nasal Cannula Nasal Cannula O2 Flow Rate 2.0 2.0 2.0 Intake and Output 01/08/19 01/08/19 01/09/19 15:00 23:00 07:00 Intake Total 550 ml 250 ml Output Total 0 ml Balance 550 ml 250 ml 0 ml [place] APRN Jan 09, 2019 13:38
--- NOTE | 2019-01-09 14:21 | NUR ---
SW following pt. Spoke with pulmonary and pt might need home Bipap or trilogy. SW phoned and faxed referral to [facility]. Will continue to follow.
[2019-01-09 15:00] VITALS: BP 124/58
[2019-01-09] MEDS: LACTOBACILLUS RHAMNOSUS GG 1 CAPSULE. PO SCH ×2 (16:04→21:06)
[2019-01-09] MEDS: DOCUSATE SODIUM 100 MG CAPSULE. PO SCH ×2 (16:04→21:05)
[2019-01-09] MEDS: ASPIRIN CHEWABLE 81 MG TABLET. PO SCH (16:05)
[2019-01-09] MEDS: VANCOMYCIN 500 MG in IV NORMAL SALINE 100ML 100 ML IV SCH (16:06)
[2019-01-09] MEDS: CARVEDILOL 3.125 MG TABLET. PO SCH ×2 (16:09→16:41)
[2019-01-09] MEDS: LOSARTAN POTASSIUM 25 MG TABLET. PO SCH (16:10)
--- NOTE | 2019-01-09 16:14 | NUR ---
SW following pt. Discussed with pt and pt's daughter, Hailee: [phone] at bedside. Agreeable with using [facility] regarding home trilogy but pt uses [facility] for home o2, has hospital bed through them. SW notified pt to qualify for trilogy it is a requirement to have two hospitalization within a year with same dx. Pt has been at [facility] in June 2018 but does not remember reason. [facility] will attempt to get records from [facility]. Pt would like a new hospital bed as the current hospital she has is not functioning. Daughter reports [facility] had changed the motor but it is still not functional and requested SWer to assit. SW will call [facility] tomorrow regarding this. Discussed with ID and pt will need IV abx with HD. SW phoned and faxed records to [facility]. Awaiting to hear if they are able to do IV abx. Spoke with Wound Care and pt has been approved for home wound vac. [facility] GISELE will continue to follow pt with Nishi as needed..
[2019-01-09] MEDS: VANCOMYCIN PER PHARMACY MC PRN (16:29)
--- NOTE | 2019-01-09 16:42 | NUR ---
Wound Care: Follow up to change wound vac to L thumb amputation. L thumb and L 3rd finger wounds pictured and measured (see detailed assessment). 2 pieces of black foam applied to L thumb, tracked to L anterior wrist. Good seal achieved. Nae AG, xeroform and telfa to L 3rd finger. IAD continues to sacral/coccyx area. Applied barrier cream and left DETHISTLER OPERATOR. No other open areas noted on head to toe assessment. Continues on P500 mattress. Follow up on 01/11/19 for vac dressing change.
[2019-01-09 19:00] VITALS: BP 98/48
[2019-01-09] MEDS: ATORVASTATIN CALCIUM 20 MG TABLET PO SCH (21:06)
[2019-01-09] MEDS: CEFEPIME HCL IV Push 1 GM VIAL. IVP SCH (21:06)
[2019-01-09] MEDS: INSULIN GLARGINE SYRINGE. SQ SCH (21:16)
[2019-01-09] MEDS: HYDROcodone/APAP 10/325 1 TAB TABLET PO PRN (21:19)
[2019-01-09 23:00] VITALS: BP 113/47
[2019-01-10 03:00] VITALS: BP 109/50
[2019-01-10 07:00] VITALS: BP 107/41
[2019-01-10] MEDS: PANTOPRAZOLE 40 MG TABLET.DR. PO SCH (07:17)
[2019-01-10] MEDS: LEVOTHYROXINE 150 MCG TABLET PO SCH (07:17)
[2019-01-10] MEDS: ALBUTEROL SULFATE 2.5 MG/3 ML NEBU. NEB SCH ×2 (07:43→11:48)
[2019-01-10] MEDS: BUDESONIDE 0.5 MG/2 ML NEBU. NEB SCH (07:43)
--- NOTE | 2019-01-10 09:02 | NUR ---
SW following pt. Spoke with [facility] and pt does not qualify for home trilogy. Spoke with Bushra at [facility] and they are able to do IV abx. Spoke with Marleny at [facility] and she will notify parts sales manager regarding the bed and contact pt's daughter. Discussed with RN and Pulmonary.
[2019-01-10] MEDS: ASPIRIN CHEWABLE 81 MG TABLET. PO SCH (09:08)
[2019-01-10] MEDS: DOCUSATE SODIUM 100 MG CAPSULE. PO SCH (09:08)
[2019-01-10] MEDS: FERROUS SULFATE 325 MG TABLET. PO SCH ×2 (09:08→12:23)
[2019-01-10] MEDS: LACTOBACILLUS RHAMNOSUS GG 1 CAPSULE. PO SCH (09:08)
[2019-01-10] MEDS: LOSARTAN POTASSIUM 25 MG TABLET. PO SCH (09:08)
[2019-01-10] MEDS: HYDROcodone/APAP 10/325 1 TAB TABLET PO PRN (09:09)
--- NOTE | 2019-01-10 09:09 | PDOC ---
Infectious Disease Note Subjective Subjective awake, says feeling good ROS ROS no n/v/d/sob Vital Sign Vital Signs Vital Signs Date Time Temp Pulse Resp B/P (MAP) Pulse Ox O2 Delivery O2 Flow Rate FiO2 01/10/19 07:43 99 Nasal Cannula 2.0 01/10/19 07:00 97.7 82 16 107/41 (63) 97.7 Physical Exam PHYSICAL EXAM GENERAL: Propped up in chair, alert - NAD - looks well HEENT: nml marcie. OC/Op - clear NECK: Supple LUNGS: Clear bilaterally. HEART: S1, S2. ABDOMEN: Soft, obese. Decreased Bowel sounds, nontender but some distension. EXTREMITIES: Edema present, chronic. DERMATOLOGIC: Left hand with vac and dressing in place NEUROLOGIC: Alert, answers questions R chest HD cath - clean Labs Lab Laboratory Tests Test 01/09/19 14:24 01/09/19 17:05 01/09/19 20:43 01/10/19 07:26 Glucose (Fingerstick) 118 mg/dL (70-99) 154 mg/dL (70-99) 186 mg/dL (70-99) 151 mg/dL (70-99) Objective Assessment Acute resp failure on Bipap and more alert -better S/p left arm radiocephalic fistula ligation, left 1st finger tip amputation and debridement of the thumb, left 3rd finger debridement 01/03, to bone Left thumb infection, C/S GPC,GPR - mixed skin emre & enterococcus spp 12/27 Left 3rd finger dry eschar Leukocytosis - stable in part reactive with steal. S/p Dexamethasone 01/03 Steal phenomenon End-stage renal disease, on hemodialysis.thru LUE fistula, w/u for steal phenomenon Diabetes mellitus, uncontrolled. History of breast abscess with MSSA, Klebsiella and E. coli 04/2018. PPM in place. Plan Plan of Care Post op wounds are open so will cont cefepime and vanco renal dosing for dialysis local wound care with vac f/u labs D/w family and nursing d/w vascular surgery yesterday f/u with me in 2 wks TAISHA GONZALEZ MD Jan 10, 2019 09:09
[2019-01-10] MEDS: INSULIN LISPRO 300 UNITS/3 ML VIAL. SQ SCH ×2 (09:16→12:29)
[2019-01-10 11:00] VITALS: BP 104/35
--- NOTE | 2019-01-10 11:04 | PDOC ---
SUBJECTIVE ROS Follow-up for ESRD on hemodialysis Patient denies any new complaints today. CVS: no Orthopnea, no CP RESP: no SOB, no SHANE GI: no Nausea, no Vomiting : no Dysuria, no Urgency OBJECTIVE Vital Signs Vital Signs Date Time Temp Pulse Resp B/P (MAP) Pulse Ox O2 Delivery O2 Flow Rate FiO2 01/10/19 09:09 Nasal Cannula 2.0 01/10/19 09:08 82 107/41 01/10/19 07:43 99 01/10/19 07:00 97.7 16 97.7 I & 0 Intake and Output 01/10/19 07:00 Intake Total 820 ml Balance 820 ml Intake Oral 820 ml # Voids 1 PHYSICAL EXAM Physical Exam GEN: Awake, Oriented x 3, In no distress EYES: Vision Unchanged, Conjunctiva Normal EN: No EN Drainage, Mucous Membranes moist NECK: no JVD, no JVP, Supple, no Thyromegaly; short thick neck CVS: S1S2, possible Murmur, No Gallop, No Rub, trace Edema RESP: No audible Rales, no Rhonchi, no Acc. Muscle Use, distant breath sounds GI: BS + ve, NO Bruit, Non Tender, Non Distended, obese abdomen : no CVA tenderness, no Suprapubic Tenderness DIAGNOSIS/ASSESSMENT Assessment & Plan ESRD: Current fluid and E-lyte status does not necessitate emergent need for dialysis. Will re-evaluate for dialysis in the am and continue on Wednesday, Wednesday, Wednesday schedule. ANEMIA; ct Aranap as ordered, Transfuse with next HD as needed HTN: Current BP meds as reviewed. See orders for changes. BONE & MINERAL: No recent phosphorus levels. We'll order for tomorrow morning. Reevaluate binder regimen based on trend Discussed Plan of Care with patient at bedside COMMENT/RELEVANT DATA Meds Current Medications Medications (Trade) Dose Ordered Sig/Becki Start Time Stop Time Status Last Admin Dose Admin Acetaminophen (Tylenol) 500 mg 1X PRN PRN 01/06/19 08:15 01/07/19 08:14 DC Acetaminophen/ Hydrocodone Bitart (Lortab 10/325) 1 tab PRN Q6HRS PRN 12/27/18 16:30 01/10/19 09:09 1 TAB Albumin Human 200 ml @ 200 mls/hr 1X PRN PRN 01/09/19 08:15 01/09/19 14:14 DC Albuterol Sulfate (Ventolin Neb Soln) 2.5 mg RTQID 12/27/18 20:00 01/10/19 07:43 2.5 MG Aspirin (Children'S Aspirin) 81 mg DAILY 12/28/18 09:00 01/10/19 09:08 81 MG Atorvastatin Calcium (Lipitor) 20 mg HS 12/27/18 21:00 01/09/19 21:06 20 MG Bisacodyl (Dulcolax Supp) 10 mg PRN DAILY PRN 12/27/18 16:30 01/07/19 04:12 10 MG Budesonide (Pulmicort) 0.5 mg RTBID 12/27/18 20:00 01/10/19 07:43 0.5 MG Calcium Carbonate/ Glycine (Tums) 500 mg PRN Q3HRS PRN 12/27/18 16:30 Carvedilol (Coreg) 3.125 mg BIDWMEALS 12/30/18 09:00 01/09/19 16:09 3.125 MG Cefazolin Sodium 0 ml @ As Directed STK-MED ONCE 01/04/19 12:04 01/04/19 12:05 DC Cefazolin Sodium (Ancef 1gm Ivpb For Omni) 1 gm STK-MED ONCE 01/03/19 16:00 01/04/19 08:42 DC Cefazolin Sodium 1 gm/Dextrose 50 ml @ 100 mls/hr 1X PREOP ONCE 01/03/19 15:45 01/03/19 16:14 UNV Cefazolin Sodium 1 gm/Sodium Chloride 500 ml @ 500 mls/hr 1X ONCE 01/03/19 16:18 01/03/19 17:17 DC 01/03/19 17:05 Cefepime HCl (Maxipime) 1 gm Q24H 12/27/18 18:00 01/09/19 21:06 1 GM Cellulose (Surgicel Fibrillar 1x2) 1 each STK-MED ONCE 01/03/19 16:17 01/03/19 16:17 DC Clonidine HCl (Catapres) 0.1 mg PRN Q1HR PRN 12/27/18 16:30 Darbepoetin Abisai (ARANESP for DIALYSIS PTS) 60 mcg WEEKLYHS 01/06/19 21:00 01/06/19 21:13 60 MCG Dexamethasone Sodium Phosphate (Decadron) 4 mg STK-MED ONCE 01/03/19 18:07 01/03/19 18:07 DC Diclofenac Sodium (Voltaren) 1 charan PRN QID PRN 01/06/19 12:15 Diphenhydramine HCl (Benadryl) 25 mg 1X PRN PRN 01/06/19 08:15 01/07/19 08:14 DC Docusate Sodium (Colace) 100 mg BID 12/27/18 21:00 01/10/19 09:08 100 MG Ephedrine Sulfate (ePHEDrine PF IN SALINE SYRINGE) 50 mg STK-MED ONCE 01/03/19 18:07 01/03/19 18:07 DC Fentanyl Citrate (Fentanyl 2ml Vial) 100 mcg STK-MED ONCE 01/04/19 12:05 01/04/19 12:05 DC Ferrous Sulfate (Feosol) 325 mg TIDWMEALS 12/27/18 17:00 01/10/19 09:08 325 MG Heparin Sodium (Porcine) (Heparin Sodium) 3,000 unit 1X ONCE 12/29/18 10:30 12/29/18 10:32 DC 12/29/18 10:30 3,000 UNIT Heparin Sodium (Porcine) 5000 unit/Sodium Chloride 505 ml @ 505 mls/hr 1X ONCE 01/03/19 16:17 01/03/19 17:16 DC Heparin Sodium/ Sodium Chloride (HEPARIN for ARTERIAL LINE FLUSH) 1,000 unit 1X ONCE 01/02/19 14:45 01/02/19 15:04 DC 01/02/19 14:45 1,000 UNIT Hydromorphone HCl (Dilaudid) 1 mg PRN Q3HRS PRN 01/04/19 14:00 01/04/19 14:28 1 MG Info (CONTRAST GIVEN -- Rx MONITORING) 1 each PRN DAILY PRN 12/29/18 11:00 12/31/18 10:59 DC Info (PHARMACY MONITORING -- do not chart) 1 each PRN DAILY PRN 01/09/19 08:15 01/09/19 08:12 DC Insulin Glargine (Lantus Syringe) 30 unit QHS 12/31/18 21:00 01/09/19 21:16 30 UNIT Insulin Human Lispro (HumaLOG VIAL for OP,RR ONLY) 0-10 units PRN Q1HR PRN 01/03/19 15:15 01/04/19 15:14 DC 01/03/19 19:14 4 UNIT Insulin Human Lispro (HumaLOG) 10 units TIDWMEALS 01/02/19 07:45 01/10/19 09:16 10 UNITS Iodixanol (Visipaque 320) 100 ml 1X ONCE 01/02/19 14:45 01/02/19 15:04 DC 01/02/19 14:52 114 ML Lactobacillus Rhamnosus (Culturelle) 1 cap BID 12/28/18 21:00 01/10/19 09:08 1 CAP Levothyroxine Sodium (Synthroid) 150 mcg DAILYAC 12/28/18 07:30 01/10/19 07:17 150 MCG Lidocaine HCl (Buffered Lidocaine 1%) 2 ml 1X ONCE 01/02/19 14:45 01/02/19 15:04 DC 01/02/19 14:52 2 ML Lidocaine HCl (Lidocaine Pf 2% Vial) 5 ml STK-MED ONCE 01/03/19 18:07 01/03/19 18:07 DC Lidocaine HCl (Xylocaine-Mpf 1% 2ml Vial) 2 ml PRN 1X PRN 01/03/19 11:00 01/04/19 10:59 DC Lidocaine/ Epinephrine (LIDOCAINE 1%-EPI 1:100,000 Multi-Dose) 20 ml 1X ONCE 01/04/19 12:00 01/04/19 12:04 DC 01/04/19 12:28 8 ML Losartan Potassium (Cozaar) 25 mg DAILY 01/02/19 09:00 01/10/19 09:08 25 MG Magnesium Hydroxide (Milk Of Magnesia) 2,400 mg PRN Q12HR PRN 12/27/18 16:30 01/05/19 08:57 2,400 MG Midazolam HCl (Versed) 2 mg STK-MED ONCE 01/04/19 12:05 01/04/19 12:05 DC Morphine Sulfate (Morphine Sulfate) 2 mg STK-MED ONCE 01/03/19 18:04 01/03/19 18:05 DC Non-Formulary Medication (Albuterol Sulfate (Ventolin Hfa Inhaler)) 2 puff QID 12/27/18 17:00 UNV Non-Formulary Medication (Fluticasone/ Vilanterol (Breo Ellipta 100-25 Mcg Inh)) 1 puff DAILY PRN 12/27/18 16:30 UNV Ondansetron HCl (Zofran) 4 mg STK-MED ONCE 01/03/19 18:07 01/03/19 18:07 DC Oxycodone HCl (Roxicodone) 5 mg PRN Q3HRS PRN 12/27/18 16:30 01/09/19 18:50 5 MG Pantoprazole Sodium (Protonix) 40 mg DAILYAC 12/28/18 07:30 01/10/19 07:17 40 MG Phenylephrine HCl (PHENYLEPHRINE in 0.9% NACL PF) 1 mg STK-MED ONCE 01/03/19 18:07 01/03/19 18:07 DC Prochlorperazine Edisylate (Compazine) 10 mg STK-MED ONCE 01/03/19 18:18 01/03/19 18:18 DC Propofol 20 ml @ As Directed STK-MED ONCE 01/03/19 18:07 01/03/19 18:07 DC Ringer's Solution 1,000 ml @ 30 mls/hr Q24H 01/03/19 10:49 01/03/19 22:48 DC Sevoflurane (Ultane) 60 ml STK-MED ONCE 01/03/19 18:07 01/03/19 18:07 DC Sodium Polystyrene Sulfonate (Kayexalate) 15 gm 1X ONCE 12/28/18 05:45 12/28/18 05:46 DC 12/28/18 05:57 15 GM Sodium Chloride 1,000 ml @ 400 mls/hr Q2H30M PRN 01/09/19 08:05 01/09/19 20:04 DC Sodium Chloride (Normal Saline Flush) 10 ml 1X PRN PRN 01/09/19 08:15 01/10/19 08:14 DC Vancomycin HCl (Vanco Per Pharmacy) 1 each PRN DAILY PRN 12/27/18 17:15 01/09/19 16:29 1 EACH Vancomycin HCl (Vancomycin Random Level) 1 each 1X ONCE 01/04/19 06:00 01/04/19 06:01 DC 01/04/19 07:30 1 EACH Vancomycin HCl 1.5 gm/Sodium Chloride 500 ml @ 250 mls/hr 1X ONCE 12/27/18 17:30 12/27/18 19:29 DC 12/27/18 18:02 250 MLS/HR Vancomycin HCl 500 mg/Sodium Chloride 100 ml @ 100 mls/hr QMWF 12/30/18 16:00 01/09/19 16:06 100 MLS/HR Zolpidem Tartrate (Ambien) 5 mg PRN QHS PRN 12/27/18 16:30 Lab Laboratory Tests Test 01/09/19 14:24 01/09/19 17:05 01/09/19 20:43 01/10/19 07:26 Glucose (Fingerstick) 118 mg/dL (70-99) 154 mg/dL (70-99) 186 mg/dL (70-99) 151 mg/dL (70-99) Results All relevant outside records, renal labs, imaging studies, telemetry/EKG's were reviewed. KWASI GONZALEZ MD Jan 10, 2019 11:04
--- NOTE | 2019-01-10 12:07 | PDOC3 ---
Discharge Summary Visit Information Date of Admission: Dec 27, 2018 Date of Discharge: Jan 10, 2019 Admitting Diagnosis Comment: 1. CHF exacerbation , hypoxic RF - bipAP 11.2018, 2. Cellulitis left thumb, unroofed at Wound clinic, r.o osteomyelitis 3. 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 ESRD on HD, OLIGURIA 5. AOCD 6. MAXIMILIAN< Obesity, hypothyroidism, HTN, CAD hx, lipids- chronic stable 7. LABILE BP 8. Indwelling ICD 9 LABILE DM Brief Hospital Course Allergies Allergies Coded Allergies Type Severity Reaction Last Updated Verified meperidine Allergy Intermediate 01/04/19 Yes Vital Signs Vital Signs Date Time Temp Pulse Resp B/P (MAP) Pulse Ox O2 Delivery O2 Flow Rate FiO2 01/10/19 11:48 98 Nasal Cannula 2.0 01/10/19 09:08 82 107/41 01/10/19 07:00 97.7 16 97.7 Lab Results Laboratory Tests Test 01/08/19 16:37 01/08/19 20:30 01/09/19 04:05 01/09/19 04:15 Glucose (Fingerstick) 172 mg/dL (70-99) 162 mg/dL (70-99) White Blood Count 11.1 x10^3/uL (4.0-11.0) Red Blood Count 2.87 x10^6/uL (3.50-5.40) Hemoglobin 9.1 g/dL (12.0-15.5) Hematocrit 30.0 % (36.0-47.0) Mean Corpuscular Volume 105 fL (79-100) Mean Corpuscular Hemoglobin 32 pg (25-35) Mean Corpuscular Hemoglobin Concent 30 g/dL (31-37) Red Cell Distribution Width 15.1 % (11.5-14.5) Platelet Count 261 x10^3/uL (140-400) Neutrophils (%) (Auto) 76 % (31-73) Lymphocytes (%) (Auto) 11 % (24-48) Monocytes (%) (Auto) 9 % (0-9) Eosinophils (%) (Auto) 3 % (0-3) Basophils (%) (Auto) 1 % (0-3) Neutrophils # (Auto) 8.5 x10^3/uL (1.8-7.7) Lymphocytes # (Auto) 1.3 x10^3/uL (1.0-4.8) Monocytes # (Auto) 0.9 x10^3/uL (0.0-1.1) Eosinophils # (Auto) 0.3 x10^3/uL (0.0-0.7) Basophils # (Auto) 0.1 x10^3/uL (0.0-0.2) Segmented Neutrophils % 82 % (35-66) Lymphocytes % 11 % (24-48) Monocytes % 6 % (0-10) Eosinophils % 1 % (0-5) Platelet Estimate Adequate (ADEQUATE) Polychromasia Slight Basophilic Stippling Present Anisocytosis Slight Sodium Level 139 mmol/L (136-145) Potassium Level 4.4 mmol/L (3.5-5.1) Chloride Level 100 mmol/L (98-107) Carbon Dioxide Level 31 mmol/L (21-32) Anion Gap 8 (6-14) Blood Urea Nitrogen 35 mg/dL (7-20) Creatinine 7.0 mg/dL (0.6-1.0) Estimated GFR (Cockcroft-Gault) 7.0 Glucose Level 195 mg/dL (70-99) Calcium Level 9.1 mg/dL (8.5-10.1) Test 01/09/19 07:25 01/09/19 14:24 01/09/19 17:05 01/09/19 20:43 Glucose (Fingerstick) 186 mg/dL (70-99) 118 mg/dL (70-99) 154 mg/dL (70-99) 186 mg/dL (70-99) Test 01/10/19 07:26 01/10/19 11:38 Glucose (Fingerstick) 151 mg/dL (70-99) 153 mg/dL (70-99) Laboratory Tests Test 01/09/19 14:24 01/09/19 17:05 01/09/19 20:43 01/10/19 07:26 Glucose (Fingerstick) 118 mg/dL (70-99) 154 mg/dL (70-99) 186 mg/dL (70-99) 151 mg/dL (70-99) Test 01/10/19 11:38 Glucose (Fingerstick) 153 mg/dL (70-99) Brief Hospital Course Ms. Eaton is a 68 old AA female who is ESRD on HD prev via left fistula AV graft, She has hTN and DM on insulin that is rather labile and i had to adjust during her 15 day stay with us. 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 BUt she is on good CHF meds already and cards had no further recs, She follows too with an outside cards and is compliant Discharge Information Condition at Discharge: Improved, Stable Disposition/Orders: D/C to Home w/ HH Scheduled Albuterol Sulfate (Ventolin Hfa Inhaler) 18 Gm Hfa.aer.ad, 2 PUFF INH QID for FOR ASTHMA, Ref 0 (Reported) Entered as Reported by: FELIPA RICKETTS on 01/10/18 1845 Last Action: Converted on 12/27/181624 by KIMBERLY LOPEZ Aspirin (Aspirin) 81 Mg Tab.chew, 1 TAB PO DAILY for BLOOD THINNER, #30 Ref 3 (Reported) Entered as Reported by: AYESHA GARNER on 04/12/18 1519 Last Action: Continued on 12/27/18 162 by KIMBERLY LOPEZ Atorvastatin Calcium (Lipitor) 20 Mg Tablet, 20 MG PO HS for FOR CHOLESTEROL, #30 Ref 0 (Reported) Entered as Reported by: AYESHA GARNER on 04/12/18 1520 Last Action: Continued on 12/27/18 162 by KIMBERLY LOPEZ Calcium Carbonate (Tums) 200 Mg Tab.chew, 2 TAB PO TIDAC for calcium supplement, (Reported) Entered as Reported by: FELIPA RICKETTS on 01/10/181844 Last Action: HELD on 12/27/181624 by KIMBERLY LOPEZ Carvedilol (Carvedilol ) 3.125 Mg Tablet, 3.125 MG PO BIDWMEALS for chf, htn, #60 Prescribed by: KIMBERLY LOPEZ on 01/09/19 09 Docusate Sodium (Docusate Sodium) 100 Mg Capsule, 100 MG PO BID for constipation, (Reported) Entered as Reported by: FELIPA RICKETTS on 01/10/181844 Last Action: HELD on 12/27/181624 by KIMBERLY LOPEZ Ferrous Sulfate (Ferrous Sulfate) 325 Mg Tablet, 325 MG PO TID for anemia, (Reported) Entered as Reported by: FELIPA RICKETTS on 01/10/181844 Last Action: Continued on 12/27/181624 by KIMBERLY LOPEZ Insulin Glargine,Hum.rec.anlog (Lantus) 100 Unit/1 Ml Vial, 30 UNIT SQ QHS for dm for 30 Days Prescribed by: KIMBERLY LOPEZ on 01/09/19906 Insulin Regular, Human (Humulin R U-500 Kwikpen) 500 Unit/1 Ml Insuln.pen, 10 UNIT SQ TIDAC for diabetes, (Reported) U-500 Entered as Reported by: FELIPA RICKETTS on 01/10/181844 Last Action: Converted on 12/27/181624 by KIMBERLY LOPEZ Levothyroxine Sodium (Levothyroxine Sodium) 150 Mcg Tablet, 150 MCG PO DAILYAC for THYROID SUPPLEMENT, #30 Ref 0 (Reported) Entered as Reported by: FELIPA RICKETTS on 01/10/181844 Last Action: Continued on 12/27/181624 by KIMBERLY LOPEZ Losartan Potassium (Losartan Potassium) 50 Mg Tablet, 25 MG PO DAILY for HYPERTENSION, (Reported) Entered as Reported by: AYESHA GARNER on 04/12/18 1519 Last Action: Continued on 12/27/181624 by KIMBERLY LOPEZ Pantoprazole Sodium (Protonix) 20 Mg Tablet.dr, 40 MG PO DAILY for GERD, (Reported) Entered as Reported by: AYESHA GARNER on 04/12/18 1521 Last Action: Converted on 12/27/181624 by KIMBERLY LOPEZ Scheduled PRN Diclofenac Sodium (Voltaren) 100 Gm Gel..gram., 100 GM TP PRN QID PRN for PAIN, (Reported) Entered as Reported by: FELIPA RICKETTS on 01/10/181844 Last Action: Continued on 12/27/181624 by KIMBERLY LOPEZ Fluticasone/Vilanterol (Breo Ellipta 100-25 Mcg Inh) 1 Each Aer.pow.ba, 1 PUFF IH DAILY PRN for daily, (Reported) Entered as Reported by: FELIPA RICKETTS on 01/10/181844 Last Action: Converted on 12/27/181624 by KIMBERLY LOPEZ Hydrocodone/Apap 10-325 ([place] 10-325 Tablet) 1 Each Tablet, 1 TAB PO PRN Q6HRS PRN for PAIN, #30 Ref 0 Prescribed by: KIMBERLY LOPEZ on 01/09/19 0907 Discontinued Medications Amoxicillin/Potassium Clav (Augmentin 875-125 Tablet) 1 Each Tablet, 1 TAB PO BID for ANTIBIOTIC, #14 (Reported) Entered as Reported by: AYESHA GARNER on 04/12/18 1522 Last Action: HELD on 12/27/181624 by KIMBERLY LOPEZ Carvedilol (Carvedilol ) 6.25 Mg Tablet, 6.25 MG PO BIDWMEALS for hypertension, (Reported) Entered as Reported by: FELIPA RICKETTS on 01/10/181844 Last Action: Continued on 12/27/181624 by KIMBERLY JEONG MD Jan 10, 2019 12:07
[2019-01-10] MEDS: CARVEDILOL 3.125 MG TABLET. PO SCH (12:24)
--- NOTE | 2019-01-10 14:05 | NUR ---
GISELE phoned and faxed orders to [facility]. Confirmed with [facility] that they are able to accommodate IV abx needs. Pt's choice and rights forms verbally consented by pt and copies on chart. Pt states her family will be able to take her home and denies other needs. Discussed with RN.
[2019-01-10 15:00] VITALS: BP 94/43
--- NOTE | 2019-01-10 15:12 | NUR ---
Wound Care: Delivered home vac to pt, family at bedside. Assisted with setup and home use education, no concerns. Pt has used home vac before. Home vac delivery receipt signed by pt, witnessed by this nurse. Copy left with pt. Instructed to take medication 30 minutes prior to appointment, and to turn off the vac at that time.
--- NOTE | 2019-01-10 15:43 | PDOC ---
PULMONARY PROGRESS NOTES Subjective PT NOT MORE SOA WEARING BIPAP AT HS NOT MORE SOA Vitals Vital Signs Date Time Temp Pulse Resp B/P (MAP) Pulse Ox O2 Delivery O2 Flow Rate FiO2 01/10/19 15:00 97.7 85 16 94/43 (60) 94 Nasal Cannula 2.0 97.7 ROS: No Nausea, No Chest Pain, No Abdominal Pain, No Increase Cough General: No acute distress Lungs: Clear Cardiovascular: S1, S2 Abdomen: Soft Neuro Exam: Alert, Oriented, No Focal Findings Extremities: Other (WOUNDS) Skin: Warm Labs Laboratory Tests Test 01/08/19 16:37 01/08/19 20:30 01/09/19 04:05 01/09/19 04:15 Glucose (Fingerstick) 172 mg/dL (70-99) 162 mg/dL (70-99) White Blood Count 11.1 x10^3/uL (4.0-11.0) Red Blood Count 2.87 x10^6/uL (3.50-5.40) Hemoglobin 9.1 g/dL (12.0-15.5) Hematocrit 30.0 % (36.0-47.0) Mean Corpuscular Volume 105 fL (79-100) Mean Corpuscular Hemoglobin 32 pg (25-35) Mean Corpuscular Hemoglobin Concent 30 g/dL (31-37) Red Cell Distribution Width 15.1 % (11.5-14.5) Platelet Count 261 x10^3/uL (140-400) Neutrophils (%) (Auto) 76 % (31-73) Lymphocytes (%) (Auto) 11 % (24-48) Monocytes (%) (Auto) 9 % (0-9) Eosinophils (%) (Auto) 3 % (0-3) Basophils (%) (Auto) 1 % (0-3) Neutrophils # (Auto) 8.5 x10^3/uL (1.8-7.7) Lymphocytes # (Auto) 1.3 x10^3/uL (1.0-4.8) Monocytes # (Auto) 0.9 x10^3/uL (0.0-1.1) Eosinophils # (Auto) 0.3 x10^3/uL (0.0-0.7) Basophils # (Auto) 0.1 x10^3/uL (0.0-0.2) Segmented Neutrophils % 82 % (35-66) Lymphocytes % 11 % (24-48) Monocytes % 6 % (0-10) Eosinophils % 1 % (0-5) Platelet Estimate Adequate (ADEQUATE) Polychromasia Slight Basophilic Stippling Present Anisocytosis Slight Sodium Level 139 mmol/L (136-145) Potassium Level 4.4 mmol/L (3.5-5.1) Chloride Level 100 mmol/L (98-107) Carbon Dioxide Level 31 mmol/L (21-32) Anion Gap 8 (6-14) Blood Urea Nitrogen 35 mg/dL (7-20) Creatinine 7.0 mg/dL (0.6-1.0) Estimated GFR (Cockcroft-Gault) 7.0 Glucose Level 195 mg/dL (70-99) Calcium Level 9.1 mg/dL (8.5-10.1) Test 01/09/19 07:25 01/09/19 14:24 01/09/19 17:05 01/09/19 20:43 Glucose (Fingerstick) 186 mg/dL (70-99) 118 mg/dL (70-99) 154 mg/dL (70-99) 186 mg/dL (70-99) Test 01/10/19 07:26 01/10/19 11:38 Glucose (Fingerstick) 151 mg/dL (70-99) 153 mg/dL (70-99) Laboratory Tests Test 01/09/19 17:05 01/09/19 20:43 01/10/19 07:26 01/10/19 11:38 Glucose (Fingerstick) 154 mg/dL (70-99) 186 mg/dL (70-99) 151 mg/dL (70-99) 153 mg/dL (70-99) Medications Active Scripts Medications Dose Route/Sig Max Daily Dose Days Date Category Dose Instructions Augmentin 875-125 Tablet (Amoxicillin/Potassium Clav) 1 Each Tablet 1 Tab PO BID 04/12/18 Reported Protonix (Pantoprazole Sodium) 20 Mg Tablet.dr 40 Mg PO DAILY 04/12/18 Reported Lipitor (Atorvastatin Calcium) 20 Mg Tablet 20 Mg PO HS 04/12/18 Reported Aspirin 81 Mg Tab.chew 1 Tab PO DAILY 04/12/18 Reported Losartan Potassium 50 Mg Tablet 25 Mg PO DAILY 04/12/18 Reported Tums (Calcium Carbonate) 200 Mg Tab.chew 2 Tab PO TIDAC 01/10/18 Reported Breo Ellipta 100-25 Mcg Inh (Fluticasone/Vilanterol) 1 Each Aer.pow.ba 1 Puff IH DAILY PRN 01/10/18 Reported Ventolin Hfa Inhaler (Albuterol Sulfate) 18 Gm Hfa.aer.ad 2 Puff INH QID 01/10/18 Reported Ferrous Sulfate 325 Mg Tablet 325 Mg PO TID 01/10/18 Reported Docusate Sodium 100 Mg Capsule 100 Mg PO BID 01/10/18 Reported Humulin R U-500 Kwikpen (Insulin Regular, Human) 500 Unit/1 Ml Insuln.pen 10 Unit SQ TIDAC 01/10/18 Reported U-500 Voltaren (Diclofenac Sodium) 100 Gm Gel..gram. 100 Gm TP PRN QID PRN 01/10/18 Reported Dorena 10-325 Tablet (Acetaminophen/Hydrocodone Bitart) 1 Each Tablet 1 Tab PO PRN Q6HRS PRN 01/10/18 Reported Levothyroxine Sodium 150 Mcg Tablet 150 Mcg PO DAILYAC 01/10/18 Reported Carvedilol (Carvedilol) 6.25 Mg Tablet 6.25 Mg PO BIDWMEALS 01/10/18 Reported Impression . IMPRESSION: 1. Aejud-xf-ilmzzfs hypercapnic hypoxemic respiratory failure, multifactorial. 2. sleep apnea and obesity-hypoventilation syndrome 3. Status post left arm radiocephalic fistula ligation. 4. Left thumb infection. 5. Leukocytosis. 6. Steal phenomenon. 7. End-stage renal disease. 8. Diabetes. 9. Prior history of methicillin-sensitive staphylococcus aureus and Klebsiella infection. Plan . CHECKING TO SEE IF PT QUAILIFIES FOR HOME BIPAP NON INVASIVE VENTIALTION DID NOT QUALIFY WILL ORDER OUT PT SLEEP STUDY VICKY SMITH MD Jan 10, 2019 15:43
--- NOTE | 2019-01-10 16:35 | NUR ---
Discharge Note: Patient was discharged home with home health. Patients IV was discontinued without any complications per RN. Patients daughter and son at the bedside at the time of discharge education. Patient was given discharge summary/instructions, follow-ups, prescriptions and educational material. Wound care changed patients wound vac from the hospitals to her home vac. Patient and family did not have any further questions or concerns. Patient was taken down to the main entrance via wheelchair with all personal belongings accompanied by MOLLY Sheldon, where her daughter was waiting for her to take her home.
== END 2019-01-10 16:43 | disposition home health service (06) | DRG 252 ==
LOC: 5 SOUTH 15:07 → EDSEX 15:07
PROVIDERS: ADMIT Internal Medicine; ATTEND Internal Medicine
PROC: 0JH63XZ Insertion of Tunneled Vascular Access Device into Chest Subcutaneous Tissue and Fascia, Percutaneous Approach (ICD-10-PCS; principal; 2018-12-27)
PROC: 02H633Z Insertion of Infusion Device into Right Atrium, Percutaneous Approach (ICD-10-PCS; 2018-12-27)
PROC: B548ZZA Ultrasonography of Superior Vena Cava, Guidance (ICD-10-PCS; 2018-12-27)
PROC: 5A1D70Z Performance of Urinary Filtration, Intermittent, Less than 6 Hours Per Day (ICD-10-PCS; 2018-12-28)
PROC: 5A1D70Z Performance of Urinary Filtration, Intermittent, Less than 6 Hours Per Day (ICD-10-PCS; 2018-12-30)
PROC: 5A1D70Z Performance of Urinary Filtration, Intermittent, Less than 6 Hours Per Day (ICD-10-PCS; 2019-01-02)
PROC: 05LF0ZZ Occlusion of Left Cephalic Vein, Open Approach (ICD-10-PCS; 2019-01-03)
PROC: 0X6M0Z3 Detachment at Left Thumb, Low, Open Approach (ICD-10-PCS; 2019-01-03)
PROC: 0JBK0ZZ Excision of Left Hand Subcutaneous Tissue and Fascia, Open Approach (ICD-10-PCS; 2019-01-03)
PROC: B41D1ZZ Fluoroscopy of Aorta and Bilateral Lower Extremity Arteries using Low Osmolar Contrast (ICD-10-PCS; 2019-01-03)
PROC: 03LC0ZZ Occlusion of Left Radial Artery, Open Approach (ICD-10-PCS; 2019-01-03 15:30)
PROC: 5A1D70Z Performance of Urinary Filtration, Intermittent, Less than 6 Hours Per Day (ICD-10-PCS; 2019-01-04)
PROC: 5A09357 Assistance with Respiratory Ventilation, Less than 24 Consecutive Hours, Continuous Positive Airway Pressure (ICD-10-PCS; 2019-01-06)
PROC: 5A1D70Z Performance of Urinary Filtration, Intermittent, Less than 6 Hours Per Day (ICD-10-PCS; 2019-01-06)
PROC: 5A09357 Assistance with Respiratory Ventilation, Less than 24 Consecutive Hours, Continuous Positive Airway Pressure (ICD-10-PCS; 2019-01-08)
PROC: 5A09357 Assistance with Respiratory Ventilation, Less than 24 Consecutive Hours, Continuous Positive Airway Pressure (ICD-10-PCS; 2019-01-09)
PROC: 5A1D70Z Performance of Urinary Filtration, Intermittent, Less than 6 Hours Per Day (ICD-10-PCS; 2019-01-09)
DX: T82.898A Other specified complication of vascular prosthetic devices, implants and grafts, initial encounter (principal); A41.9 Sepsis, unspecified organism; N18.6 End stage renal disease; J96.22 Acute and chronic respiratory failure with hypercapnia; J96.21 Acute and chronic respiratory failure with hypoxia; I50.43 Acute on chronic combined systolic (congestive) and diastolic (congestive) heart failure; E11.52 Type 2 diabetes mellitus with diabetic peripheral angiopathy with gangrene; I13.2 Hypertensive heart and chronic kidney disease with heart failure and with stage 5 chronic kidney disease, or end stage renal disease; E66.2 Morbid (severe) obesity with alveolar hypoventilation; Z68.41 Body mass index [BMI] 40.0-44.9, adult; M86.9 Osteomyelitis, unspecified; L03.012 Cellulitis of left finger; J44.9 Chronic obstructive pulmonary disease, unspecified; E03.9 Hypothyroidism, unspecified; E11.22 Type 2 diabetes mellitus with diabetic chronic kidney disease; E78.5 Hyperlipidemia, unspecified; D63.8 Anemia in other chronic diseases classified elsewhere; I25.10 Atherosclerotic heart disease of native coronary artery without angina pectoris; I25.5 Ischemic cardiomyopathy; K21.9 Gastro-esophageal reflux disease without esophagitis; K59.00 Constipation, unspecified; Y83.2 Surgical operation with anastomosis, bypass or graft as the cause of abnormal reaction of the patient, or of later complication, without mention of misadventure at the time of the procedure; Y92.89 Other specified places as the place of occurrence of the external cause; Z99.2 Dependence on renal dialysis; Z95.1 Presence of aortocoronary bypass graft; Z91.19 Patient's noncompliance with other medical treatment and regimen; Z95.0 Presence of cardiac pacemaker; Z79.4 Long term (current) use of insulin; Z79.82 Long term (current) use of aspirin; Z87.891 Personal history of nicotine dependence; Z79.51 Long term (current) use of inhaled steroids; Z79.899 Other long term (current) drug therapy; Z88.8 Allergy status to other drugs, medicaments and biological substances; Z82.49 Family history of ischemic heart disease and other diseases of the circulatory system; E11.69 Type 2 diabetes mellitus with other specified complication
CPT/HCPCS: 31622; 36216; 36415; 36558; 36600; 36901; 71045; 73120; 75605; 75710; 76937; 77001; 80048; 80053; 80202; 82805; 82962; 83036; 85007; 85025; 85610; 85651; 87070; 87186; 93306; 93931; 93971; 94640; 94660; 94760; 99152; 99153; A7015; C1713; C1750; C1769; C1892; C1894; G0269; J0171; J0690; J0692; J0780; J0882; J1100; J1170; J1644; J1815; J2001; J2250; J2270; J2370; J2405; J2704; J3010; J3370; J3490; J7040; J7613; J7626; Q9967; G0378

== ENCOUNTER → 2019-02-06 | Outpatient (CLI) | payer MEDICARE, OTHER ==
[2019-01-10 15:00] VITALS: BP 94/43
[~2019-02-06] MED LIST changes: +CARV3.1210 PO; +INSU100V8 SQ
--- NOTE | 2019-02-07 09:52 | SLEEP ---
DATE OF STUDY: 02/06/2019 SLEEP STUDY REFERRING PHYSICIAN: Vicky Rutledge MD INDICATIONS: The patient is a 68-year-old, who weighs 240 pounds with a BMI of 40. The patient's Riley score was 17. The patient underwent split night study performed at [facility]. FINDINGS: During the night study, the patient spent 443 minutes in bed and slept for 431 minutes with an excellent sleep efficiency of 97%. Sleep latency was 2 minutes with the REM latency of 397 minutes. Sleep architecture showed absent stage 1 sleep, increased stage 2 sleep, increased slow wave, and reduced REM sleep, which was only 2% of total sleep time. EKG monitoring revealed an average heart rate of 86 beats per minute, occasional PVCs seen, and no sustained arrhythmias observed. Nocturnal oximetry study revealed average oxygen saturation in the 80s with the lowest of 60%. About 43% of time, oxygen saturation remained between 80% and 89% and 25% of time between 70% and 79%. The patient uses oxygen 2 liters at home continuously and this study was done on room air. Periodic limb movements were seen at index of 26 per hour and 4 per hour caused EEG arousals. The patient had no obstructive apneas, no mixed or central apneas, and 44 hypopneas during the diagnostic portion. The patient met the criteria for CPAP initiation, but she could not tolerate CPAP; as a result, she was started on BiPAP. The pressure was started at 12/5 and best results were seen at a pressure of 20/15. At this pressure, the patient slept for 68 minutes including supine sleep but no REM sleep observed. The patient's AHI was reduced to 4 per hour and was mostly from leak; however, oxygen saturation remained in the low 80s. The patient would require 2 liters of oxygen. The patient did not have REM sleep on this pressure. IMPRESSION: 1. Moderate sleep apnea-hypopnea syndrome at an apnea-hypopnea index of 26 per hour. Absence of REM sleep during the diagnostic portion can underestimate the severity of sleep apnea. 2. Nocturnal hypoxia is secondary to combination of sleep apnea and hypoventilation. Underlying pulmonary or cardiac disease should also be a consideration. 3. Moderate periodic limb movements. RECOMMENDATIONS: 1. BiPAP at a pressure of 20/15 with 2 liters of supplemental oxygen should be used on a nightly basis. 2. Follow up in 4-6 weeks to assess compliance with BiPAP and to document clinical improvement. 3. Weight loss is strongly advised. 4. Avoid [employer] depressants. 5. Cautioned regarding driving until symptoms of sleep apnea resolve with the use of BiPAP. SUSHIL HUTCHINS MD DR: COLE/kris JOB#: [id number] / [id number] VICKY Osborne MD MTDD
== END | disposition home or self-care (01) ==
LOC: RT 19:05
PROVIDERS: ATTEND Internal Medicine Pulmonary Disease
DX: G47.33 Obstructive sleep apnea (adult) (pediatric) (principal); G47.34 Idiopathic sleep related nonobstructive alveolar hypoventilation; G47.61 Periodic limb movement disorder
CPT/HCPCS: 95810